=== PATIENT | male | born 1960 | race Caucasian/White ===

== ENCOUNTER 2019-11-08 10:38 | Inpatient (IN) | payer OTHER, SELFPAY ==
--- NOTE | ~2019-11-08 | US_ITS ---
EXAMINATION: US art doppler w press LE BI DATE: 11/08/2019 13:41 INDICATION: Peripheral arterial disease. Right fourth toe ulcer. TECHNIQUE: Segmental pressures and plethysmographic and Doppler waveforms of the brachial and lower e xtremity arteries were obtained. COMPARISON: None. FINDINGS: Right and left brachial artery pressures of 181 mm Hg and 185 mm Hg, respectively, are concordant (no rmal difference <= 30 mmHg). The right thigh pressures and below-knee pressure were not measured. The right ankle-brachial index ( KATIE) is 0.28 (normal >= 0.9-1.0). The right great toe-brachial index (TBI) is was not measured (paola l >= 0.65). Arterial Doppler waveforms are biphasic in common femoral artery, not detectable in super ficial femoral artery, and biphasic in popliteal artery and at the ankle. The left thigh pressures and below-knee pressures were not measured. The left KATIE is 0.32. The left T BI is 0.25. Arterial Doppler waveforms are biphasic from common femoral artery to the ankle. IMPRESSION: 1. Severely decreased ABIs, consistent with arterial occlusive disease. Reviewed, dictated and finalized at location A. ALT PAVING MACHINE OPERATOR
--- NOTE | ~2019-11-08 | XR_ITS ---
EXAMINATION: XR foot RT min 3V DATE: 11/08/2019 11:23 INDICATION: Chronic fourth toe TECHNIQUE: Dorsoplantar, two oblique and lateral views of the right foot were obtained. COMPARISON: 10/09/2019 FINDINGS: Alignment is normal. No fracture. Joint spaces are normal. Moderate sized plantar calcaneal spur. Sof t tissue swelling at the distal aspect of the right fourth toe. No soft tissue gas or radiopaque fore ign bodies. IMPRESSION: 1. No acute osseous abnormality. Reviewed, dictated and finalized at location B. IGHT CUTTER MACHINE
[2019-11-08 10:40] VITALS: BP 195/61; PULSE 80; RESP 19; TEMP 36.8; O2SAT 96
--- NOTE | 2019-11-08 10:50 | ED.LOWEXIN ---
HPI - Extremity Injury (Lower) General Chief Complaint: Extremity Injury, Lower Stated Complaint: RIGHT FOOT PAIN Time Seen by Provider: 11/08/19 10:46 Source: patient and RN notes reviewed Mode of arrival: EMS Limitations: no limitations History of Present Illness HPI Narrative: Pt is a 59 y/o male who presents to the ED, via EMS, with c/o right foot pain which began in August 2019. Pt states he injured his foot in August 2019, and went to get it treated. He has been taking care of it with dressing it and cleaning with antimicrobial soap since then. He reports his PCP prescribed antibiotics, but he denies having any relief of his symptoms. However, pt states he recently peeled off his toenail by accident. He reports he has been cleaning it and dressing it at home. However, pt reports a fever of 100 degrees, right foot swelling, and erythema to his right foot. His 4th and 5th toes on his right foot appear to be black in color. He states his pain is worsened when sitting, but alleviated when he is standing. MD complaint: foot injury (located at his right toes) Onset (ago): month(s) (began in August 2019) Type of Injury: unknown Relieving factors: nothing (antibiotics have not alleviated symptoms) and other (standing) Exacerbating factors: other (sitting) Other symptoms: other (right foot edema; erythema to the right foot; fever of 100 degrees; 4th and 5th toes black in appearance) Related Data Home Medications Medication Instructions Recorded Confirmed acetaminophen-codeine 1 tablet PO BID MDD 2 tablets 11/08/19 11/08/19 [Tylenol-Codeine #4] ascorbic acid (vitamin C) 1,000 mg PO DAILY 11/08/19 11/08/19 aspirin 162.5 mg PO DAILY 11/08/19 11/08/19 cyanocobalamin (vitamin B-12) 2,500 mcg PO DAILY 11/08/19 11/08/19 furosemide [Lasix] 40 mg PO QAM PRN 11/08/19 11/08/19 glimepiride [Amaryl] 4 mg PO BID PRN 11/08/19 11/08/19 insulin glargine [Basaglar KwikPen 60 unit SUB-Q QPM 11/08/19 11/08/19 U-100 Insulin] ipratropium-albuterol 3 ml INHALATION QID PRN 11/08/19 11/08/19 lisinopril [Zestril] 10 mg PO DAILY 11/08/19 11/08/19 magnesium oxide 400 mg PO BID PRN 11/08/19 11/08/19 metformin [Glucophage] 1,000 mg PO BID 11/08/19 11/08/19 pravastatin [Pravachol] 80 mg PO HS 11/08/19 11/08/19 Allergies Allergy/AdvReac Type Severity Reaction Status Date / Time amoxicillin Allergy Unknown Unknown Verified 11/08/19 10:46 cefuroxime Allergy Unknown Diarrhea Verified 11/08/19 10:46 cephalexin Allergy Unknown Unknown Verified 11/08/19 10:46 hydrocodone Allergy Unknown Vomiting Verified 11/08/19 10:46 latex Allergy Unknown Rash Verified 11/08/19 10:46 Penicillins Allergy Unknown Anaphylactic Verified 11/08/19 10:46 Shock sulfamethizole Allergy Unknown Unknown Verified 11/08/19 10:46 sulfamethoxazole Allergy Unknown Unknown Verified 11/08/19 10:46 trimethoprim Allergy Unknown Unknown Verified 11/08/19 10:46 Review of Systems Review of Systems: All systems reviewed & are unremarkable except as noted in HPI and below Constitutional: Constitutional: Reports fever(s) (of 100 degrees) Cardiovascular: Cardiovascular: Reports pedal edema (right foot) Musculoskeletal: Musculoskeletal: Reports other (right foot pain) Integumentary/Breasts: Skin/Breast: Reports erythema (to right foot) and Reports other (4th and 5th right toes appear black in color) PMFSH Past Medical History Medical History (Updated 11/08/19 @ 16:46 by Imer Wise DO) Arthritis CAD (coronary artery disease) of artery bypass graft Diabetes DVT (deep venous thrombosis) GERD (gastroesophageal reflux disease) Hypertension Myocardial infarction Peripheral vascular disease Ulcer Surgical History Surgical History (Updated 11/08/19 @ 10:59 by Lily Baker) H/O cardiac catheterization Family History Family History (Updated 10/10/18 @ 16:36 by DOCTOR UNKNOWN) Other Cerebrovascular accident Family history of arthritis Family history of cardiovascular disea
[2019-11-08 11:23] LABS: Basophils Absolute Auto 0.1 K/mm3 (0.0-0.1); Basophils Percent Auto 0.6 % (0.2-1.2); Eosinophils Absolute Auto 0.2 K/mm3 (0-0.3); Eosinophils Percent Auto 1.4 % (0-4.4); Hematocrit 42.1 % (42.0-52.0); Hemoglobin 13.4 g/dL (14.0-18.0); Immature Granulocyte Absolute 0.05 K/mm3 (0.00-0.031); Immature Granulocyte Percent A 0.4 % (0-0.5); Lymphocytes Absolute Auto 2.91 K/mm3 (0.9-3.2); Lymphocytes Percent Auto 20.8 % (18.3-44.2); Mean Corpuscular HGB Conc 31.8 g/dl (32-36); Mean Corpuscular Hemoglobin 31.9 pg (26-34); Mean Corpuscular Volume 100.2 fl (80-100); Mean Platelet Volume 10.6 fl (7.4-10.4); Monocytes Percent Auto 6.8 % (2.6-8.5); Neutrophils Absolute Auto 9.8 K/mm3 (1.3-6.7); Platelet Count Result 240 k/mm3 (150-375); Red Cell Distribution Width 14.2 % (11.5-14.5)
[2019-11-08 11:34] LABS: Partial Thromboplastin Time 28.2 SECONDS (22.3-36.8)
[2019-11-08 11:35] LABS: Alanine Aminotransferase 20 U/L (4-50); Albumin Level 4.5 g/dL (3.5-5.1); Alkaline Phosphatase 77 U/L (38-126); Aspartate Amino Transferase 21 U/L (17-59); Bilirubin,Total 0.7 mg/dL (0.2-1.3); Blood Urea Nitrogen 25 mg/dL (9-20); Calcium 9.8 mg/dL (8.4-10.2); Carbon Dioxide 25 mmol/L (22-30); Chloride 103 mmol/L (98-107); Estimated CRCL calculation 60 ml/min; Estimated Glomerular Filt Rate 48; Glucose 165 mg/dL (75-110); Potassium 4.1 mmol/L (3.4-5.0); Sodium 138 mmol/L (137-145)
--- NOTE | 2019-11-08 12:45 | PM.IMHP ---
H&P: HPI History of Present Illness Chief complaint: Right foot pain. Narrative: Noel Rodriguez is a 59 year old male with insulin-dependent diabetes, peripheral arterial disease, chronic kidney disease, coronary artery disease, and hypertension who presented to the emergency department earlier this morning via EMS from home for evaluation of right foot pain. He apparently injured his foot in August 2019, and has had wounds on his fourth and fifth toes since that time. He has reportedly been caring for them at home, using anti-microbial soap, however he developed erythema and edema about the toes extending to the dorsum of the foot for which he was seen by his primary care provider several weeks ago. He was prescribed antibiotics, however only took a few of them as he was concerned about the side effect profile. He continues to have erythema and edema and has noticed that his toes are now a deep purple color. He has been having pain in the right foot, that he has a difficult time describing but says that it is an intense deep pain. It seems to be worse when sitting, and somewhat relieved when standing. It is difficult to say whether or not he has had claudication. He also notes a low-grade fever. Of note, he had his right lower extremity revascularized per Dr. Hurt several years ago, and he admits that he does not always take his aspirin. Apparently he was told not to take his aspirin when he takes Celebrex, which seems to be at least 4-5 times a week. He has no history of gangrene or multidrug-resistant organisms. It does not sound as though he has had claudication. He denies paresthesias, numbness, and tingling at the site. Review of Systems Review of Systems: Narrative: 12 systems were reviewed with pertinent positives and negatives as per HPI. His appetite has been okay but a bit diminished due to reported sores in his mouth for which she is using Magic mouthwash. I did not appreciate any such lesions on exam, however. No cold or flu symptoms. He denies chest pain and shortness of breath. Periodically he has nausea but no vomiting. He states his diabetes is well controlled, but he is unable to tell me what his glucoses have been running at home and he does not know his most recent hemoglobin A1c. Except as documented, all other systems were reviewed and are negative. [facility] Past Medical History Medical History (Updated 11/08/19 @ 19:13 by Karen Payne PA-C) ADHD (attention deficit hyperactivity disorder) Chronic kidney disease, stage 3 Baseline creatinine between 1.5 and 1.60. Chronic pain syndrome On long-term opiates. Coronary artery disease With history of stents. Degenerative disc disease GERD (gastroesophageal reflux disease) History of DVT of lower extremity Hyperlipidemia Hypertension Insulin dependent type 2 diabetes mellitus Myocardial infarction Osteoarthritis Peripheral arterial disease Status post right lower extremity revascularization per Dr. Hurt. Surgical History Surgical History (Updated 11/08/19 @ 19:05 by Karen Payne PA-C) H/O cardiac catheterization History of left-sided carotid endarterectomy History of revascularization procedure of lower extremity Right lower extremity angioplasty and stent per Dr. Hurt. Family History Family History Other Cerebrovascular accident Family history of arthritis Family history of cardiovascular disease Family history of chronic obstructive pulmonary disease Family history of mental disorder Hypertension Social History Social History (Updated 11/08/19 @ 19:06 by Karen Payne PA-C) Social History: The patient lives in his own home in [place] with his cat. He designates his cousin Jaskaran Carr as his surrogate decision-maker and he wishes to be a full code. He is not employed and is on disability. He smokes between 5 and 20 cigarettes and 20 cigarettes/day. No drug use. He wan
[2019-11-08] MEDS: MORPHINE SULFATE 2 MG/ML INJ IV PUSH (13:41)
[2019-11-08 13:45] VITALS: BP 159/62; PULSE 73; RESP 20; O2SAT 97
[2019-11-08 14:10] VITALS: BP 182/56; PULSE 64; RESP 16; TEMP 37.1; O2SAT 98
--- NOTE | 2019-11-08 17:28 | ADMGEN ---
This patient, Noel Rodriguez, was admitted to 3 [facility] S[facility] Room 313-01. Patient/family oriented to hospital policies and general routines including ID bracelet, bed and alarms, visiting hours, pain management, procedures, bathroom and other care routines, personal items, smoking policy, room service/diet, and visiting hours. Valuables list has been completed. Information on how to activate the Rapid Response Team has been discussed. Patient/Family are encouraged to report perceived risks to care and to ask questions if they do not understand what they are told or what they should do.
[2019-11-08] MEDS: MAGNESIUM OXIDE 400 MG TABLET PO (20:23)
[2019-11-08] MEDS: PRAVASTATIN SODIUM 20 MG TABLET 80 MG PO (20:23)
[2019-11-08] MEDS: ENOXAPARIN 120 MG/0.8 ML SYRINGE 105 MG SUB-Q (20:23)
[2019-11-08] MEDS: MAGNES & ALUM HYD/SIMETH/DIPHENHYD/LIDOCAINE 119 ML MOUTHWASH 15 ML BY MOUTH (20:28)
[2019-11-08] MEDS: INSULIN GLARGINE (*BKC) 100 UNITS/ML 60 UNITS SUB-Q (20:30)
[2019-11-08 21:16] LABS: Glucose Point of Care 197 (65-105)
[2019-11-08 22:00] VITALS: BP 150/50; PULSE 75; RESP 16; TEMP 36.9; O2SAT 96
[2019-11-09] VITALS (9 sets, daily range): BP systolic 149–187; BP diastolic 52–63; PULSE 56–81; RESP 18–20; TEMP 37.1; O2SAT 97–100
[2019-11-09 00:13] LABS: Glucose Point of Care 213 (65-105)
[2019-11-09] MEDS: ALBUTEROL SULFATE NEB 2.5 MG/0.5 ML INH INHALATION ×2 (02:06→21:35)
[2019-11-09 05:23] LABS: Glucose Point of Care 199 (65-105)
[2019-11-09 06:42] LABS: Blood Urea Nitrogen 21 mg/dL (9-20); Carbon Dioxide 25 mmol/L (22-30); Chloride 100 mmol/L (98-107); Estimated CRCL calculation 63 ml/min; Estimated Glomerular Filt Rate 52; Glucose 184 mg/dL (75-110); Potassium 3.7 mmol/L (3.4-5.0); Sodium 133 mmol/L (137-145)
[2019-11-09 06:43] LABS: Basophils Absolute Auto 0.1 K/mm3 (0.0-0.1); Basophils Percent Auto 0.5 % (0.2-1.2); Eosinophils Absolute Auto 0.1 K/mm3 (0-0.3); Eosinophils Percent Auto 0.7 % (0-4.4); Hematocrit 36.1 % (42.0-52.0); Hemoglobin 11.9 g/dL (14.0-18.0); Immature Granulocyte Absolute 0.04 K/mm3 (0.00-0.031); Immature Granulocyte Percent A 0.4 % (0-0.5); Lymphocytes Absolute Auto 2.53 K/mm3 (0.9-3.2); Lymphocytes Percent Auto 22.6 % (18.3-44.2); Mean Corpuscular Hemoglobin 32.1 pg (26-34); Mean Corpuscular Volume 97.3 fl (80-100); Mean Platelet Volume 10.6 fl (7.4-10.4); Monocytes Absolute Auto 0.8 K/mm3 (0.1-0.6); Monocytes Percent Auto 7.2 % (2.6-8.5); Neutrophils Absolute Auto 7.7 K/mm3 (1.3-6.7); Neutrophils Percent Auto 68.6 % (45.5-73.1); Platelet Count Result 195 k/mm3 (150-375); Red Blood Count 3.71 M/mm3 (4.6-6.20); Red Cell Distribution Width 13.7 % (11.5-14.5); White Blood Count 11.2 K/mm3 (4.5-10.0)
[2019-11-09 08:55] LABS: Glucose Point of Care 131 (65-105)
[2019-11-09] MEDS: ASCORBIC ACID 500 MG TABLET 1000 MG PO (09:08)
[2019-11-09] MEDS: ASPIRIN 81 MG CHEWABLE TABLET 162 MG PO (09:09)
[2019-11-09] MEDS: CYANOCOBALAMIN 500 MCG TABLET 2500 MCG PO (09:09)
[2019-11-09] MEDS: lisinopriL 10 MG TABLET PO (09:10)
[2019-11-09] MEDS: ENOXAPARIN 120 MG/0.8 ML SYRINGE 105 MG SUB-Q ×2 (09:11→21:55)
[2019-11-09] MEDS: MAGNES & ALUM HYD/SIMETH/DIPHENHYD/LIDOCAINE 119 ML MOUTHWASH 15 ML BY MOUTH ×4 (09:15→21:59)
[2019-11-09] MEDS: METOPROLOL SUCCINATE EXT REL 25 MG TABCR PO (10:49)
--- NOTE | 2019-11-09 11:25 | PM.CNCAR ---
Assessment and Plan Assessment and plan (1) Peripheral arterial disease: Code(s): I73.9 - Peripheral vascular disease, unspecified Status: Acute Assessment and Plan: His KATIE showed severe distal disease, previously had stent placement to the right SFA. Currently with acute lump straightening ischemia, he needs to be on anticoagulation, continue with antibiotics, will need peripheral angiogram with possible need for intervention most likely disease in the SFA again (2) Hypertension: Code(s): I10 - Essential (primary) hypertension Status: Acute (3) Ischemic toe ulcer: Code(s): L97.509 - Non-pressure chronic ulcer of other part of unspecified foot with unspecified severity Status: Acute Assessment and Plan: Possibly ischemic ulcer, in view of severe peripheral vascular disease, and gangrenous changes. (4) Cellulitis of foot, right: Code(s): L03.115 - Cellulitis of right lower limb Status: Acute Assessment and Plan: Currently on IV antibiotics, will continue with that on planned angiogram possibly on Monday (5) Critical limb ischemia with history of revascularization of same extremity: Code(s): I99.8 - Other disorder of circulatory system; Z95.9 - Presence of cardiac and vascular implant and graft, unspecified Status: Acute Assessment and Plan: He seems to have acute limb threatening ischemia, possibly due to severe disease most likely SFA on the right side. Will proceed with angiogram, on Monday, for the time being continue with Lovenox and IV antibiotics. With a gangrenous changes on the this 4th toe he may still would need amputation but possibly only the 4th toe Additional Plan Thank you for allowing me to participate in this patient's care, I will be following up with you. Please do not hesitate to call me for any other inquiry History of Present Illness History of Present Illness Consult date/time: 11/09/19 11:25 Cardiovascular consultation Chief complain: Right foot pain and redness. 59 years old gentleman with history of diabetes mellitus, hypertension, dyslipidemia, and smoking, was admitted to the hospital because of redness and pain the right foot. His symptoms started about 2 3 months ago with the injury to the right foot as he was walking, at that time at became red and painful try to to seek medical attention for that but that to [facility] drew and subsequently started on p.o. antibiotics by his primary care doctor. Came distal this time because of worsening pain and increased redness and swelling. Apparently he had angioplasty with multiple stent placement at to the right SFA by Dr. Imer Hurt at [facility] that was back in 2013. Had not had any follow-up with him and not had any recent vascular evaluation. His KATIE showed severe distal disease. At currently he has a gangrenous changes with dry gangrene to the 4th toe of the right foot and then slide redness that involve most of the foot. He has no anterior tibial pulse, has very weak posterior tibial pulse. We started him on Lovenox, and currently he is on IV antibiotics Reason For Visit: Right foot pain. Review of Systems Constitutional: Constitutional: Reports as per HPI, Denies chills, Reports fatigue and Reports weakness Cardiovascular: Cardiovascular: Denies chest pain, Denies diaphoresis, Reports leg edema and Denies palpitations Respiratory: Respiratory: Reports dyspnea on exertion PMFSH Past Medical History Medical History ADHD (attention deficit hyperactivity disorder) Chronic kidney disease, stage 3 Baseline creatinine between 1.5 and 1.60. Chronic pain syndrome On long-term opiates. Coronary artery disease With history of stents. Degenerative disc disease GERD (gastroesophageal reflux disease) History of DVT of lower extremity Hyperlipidemia Hypertension Insulin dependent type 2 diabetes mellitus M
[2019-11-09 12:22] LABS: Glucose Point of Care 204 (65-105)
[2019-11-09 12:35] LABS: Cholesterol 112 mg/dL (0-200); HDL Direct 19 mg/dL; Triglycerides 133 mg/dL (<150)
[2019-11-09 12:46] LABS: LDL Cholesterol Direct 69 mg/dL
[2019-11-09] MEDS: INSULIN ASPART (*BKC) 100 UNITS/ML SUB-Q (13:15)
[2019-11-09] MEDS: SODIUM CHLORIDE 0.9% IV 500 ML 100 ML IV CONT ×2 (13:16→19:47)
[2019-11-09] MEDS: CLOPIDOGREL BISULFATE 75 MG TABLET PO (13:19)
--- NOTE | 2019-11-09 15:50 | PC.NURSE ---
Called Dr. Altman to verify allergy with hydrocodone, order to continue to give. Patient not having any allergy symptoms.
[2019-11-09 16:24] LABS: Glucose Point of Care 131 (65-105)
--- NOTE | 2019-11-09 16:36 | P.PNIM_ITS ---
Progress Note: A&P Assessment and Plan (1) Cellulitis of foot, right: Code(s): L03.115 - Cellulitis of right lower limb Status: Acute Assessment and Plan: 11/09/19 16:36 Patient is 59 male with uncontrolled DM and severe PVD now presents with right foot with cellulitis and 4th and 5th toes distal phalanx are necrotic and gangrenous, patient is being levaquin and vancomycin patient was seen by forensic social worker and recommending vascular angiogram and stents which is scheduled for Monday, patient complains of pain in right foot and toe denies any fever or chills denies any polyuria polydipsia (2) Ischemic toe ulcer: Code(s): L97.509 - Non-pressure chronic ulcer of other part of unspecified foot with unspecified severity Status: Acute Assessment and Plan: patient is seen by Dr. Adaem and wound care, (3) Insulin dependent type 2 diabetes mellitus: Code(s): E11.9 - Type 2 diabetes mellitus without complications; Z79.4 - retirement (current) use of insulin Status: Acute Assessment and Plan: * Hemoglobin A1c today is 8.0. * Continue insulin. Hold metformin as he may need contrast imaging. * Initiate signs constant, Accu-Cheks, and hypoglycemic protocol. (4) Hypertension: Code(s): I10 - Essential (primary) hypertension Status: Acute Assessment and Plan: * Blood pressures were reviewed and are not at goal, with systolics ranging between the 150s to low 180s. * Will continue antihypertensives and monitor blood pressures daily. He may need adjustment in dosing. Time Spent With Patient Time with patient: 15 - 25 minutes Subjective Date/time seen: 11/09/19 16:36 Patient is 59 male with uncontrolled DM and severe PVD now presents with right foot with cellulitis and 4th and 5th toes distal phalanx are necrotic and gangrenous, patient is being levaquin and vancomycin patient was seen by forensic social worker and recommending vascular angiogram and stents which is scheduled for Monday, patient complains of pain in right foot and toe denies any fever or chills denies any polyuria polydipsia Review of Systems Review of Systems: All systems reviewed & are unremarkable except as noted in HPI and below Constitutional: Constitutional: Reports as per HPI Eyes: Eyes: Reports as per HPI ENT: Reports as per HPI Cardiovascular: Cardiovascular: Reports as per HPI Respiratory: Respiratory: Reports as per HPI Gastrointestinal: Gastrointestinal: Reports as per HPI Genitourinary: Genitourinary: Reports as per HPI Musculoskeletal: Musculoskeletal: Reports as per HPI Integumentary/Breasts: Skin/Breast: Reports as per HPI Neurologic: Reports as per HPI Psychiatric: Psychiatric: Reports as per HPI Exam Const: General: comfortable and no acute distress HENMT: General nose exam: nares normal Mouth: Yes moist mucous membranes Eyes: General: appearance normal, both eyes and all related structures Sclera: sclerae normal Neck: Neck: supple Resp: Auscultation: clear t
--- NOTE | 2019-11-09 16:36 | PM.IMPN ---
Progress Note: A&P Assessment and Plan (1) Cellulitis of foot, right: Code(s): L03.115 - Cellulitis of right lower limb Status: Acute Assessment and Plan: 11/09/19 16:36 Patient is 59 male with uncontrolled DM and severe PVD now presents with right foot with cellulitis and 4th and 5th toes distal phalanx are necrotic and gangrenous, patient is being levaquin and vancomycin patient was seen by pick pack worker and recommending vascular angiogram and stents which is scheduled for Monday, patient complains of pain in right foot and toe denies any fever or chills denies any polyuria polydipsia (2) Ischemic toe ulcer: Code(s): L97.509 - Non-pressure chronic ulcer of other part of unspecified foot with unspecified severity Status: Acute Assessment and Plan: patient is seen by Dr. Adame and wound care, (3) Insulin dependent type 2 diabetes mellitus: Code(s): E11.9 - Type 2 diabetes mellitus without complications; Z79.4 - intermediate project manager (current) use of insulin Status: Acute Assessment and Plan: Hemoglobin A1c today is 8.0. Continue insulin. Hold metformin as he may need contrast imaging. Initiate signs constant, Accu-Cheks, and hypoglycemic protocol. (4) Hypertension: Code(s): I10 - Essential (primary) hypertension Status: Acute Assessment and Plan: Blood pressures were reviewed and are not at goal, with systolics ranging between the 150s to low 180s. Will continue antihypertensives and monitor blood pressures daily. He may need adjustment in dosing. Time Spent With Patient Time with patient: 15 - 25 minutes Subjective Date/time seen: 11/09/19 16:36 Patient is 59 male with uncontrolled DM and severe PVD now presents with right foot with cellulitis and 4th and 5th toes distal phalanx are necrotic and gangrenous, patient is being levaquin and vancomycin patient was seen by pick pack worker and recommending vascular angiogram and stents which is scheduled for Monday, patient complains of pain in right foot and toe denies any fever or chills denies any polyuria polydipsia Review of Systems Review of Systems: All systems reviewed & are unremarkable except as noted in HPI and below Constitutional: Constitutional: Reports as per HPI Eyes: Eyes: Reports as per HPI ENT: Reports as per HPI Cardiovascular: Cardiovascular: Reports as per HPI Respiratory: Respiratory: Reports as per HPI Gastrointestinal: Gastrointestinal: Reports as per HPI Genitourinary: Genitourinary: Reports as per HPI Musculoskeletal: Musculoskeletal: Reports as per HPI Integumentary/Breasts: Skin/Breast: Reports as per HPI Neurologic: Reports as per HPI Psychiatric: Psychiatric: Reports as per HPI Exam Const: General: comfortable and no acute distress HENMT: General nose exam: nares normal Mouth: Yes moist mucous membranes Eyes: General: appearance normal, both eyes and all related structures Sclera: sclerae normal Neck: Neck: supple Resp: Auscultation: clear to auscultation bilaterally and crackles Cardio: Rate: regular rate Rhythm: regular rhythm GI: Auscultation: normal bowel sounds Skin: General skin exam: normal color Neuro: Speech: normal speech Sensory Exam: normal sensation Extrem: Other: Right foot dorsal aspect erythematous, along lateral aspect, 4th and 5th toes distal phalax nicrotic and gangrenous Objective Data Vital Signs Vital Signs: Vital Signs - 24 hr 11/08/19 22:00 11/09/19 02:10 11/09/19 02:20 Temperature 98.4 F Pulse Rate 75 6
[2019-11-09] MEDS: LIDOCAINE 5% PATCH 2 PATCH TRANSDERM (19:33)
[2019-11-09] MEDS: IPRATROPIUM BR 0.02% INH SOLN 0.5 MG/2.5 ML VIAL INHALATION (21:36)
[2019-11-09] MEDS: PRAVASTATIN SODIUM 20 MG TABLET 80 MG PO (21:59)
[2019-11-09] MEDS: INSULIN GLARGINE (*BKC) 100 UNITS/ML 60 UNITS SUB-Q (22:01)
[2019-11-09 22:08] LABS: Glucose Point of Care 155 (65-105)
[2019-11-10 01:03] LABS: Glucose Point of Care 214 (65-105)
[2019-11-10] MEDS: SODIUM CHLORIDE 0.9% IV 500 ML 100 ML IV CONT ×2 (01:03→13:12)
[2019-11-10 01:52] LABS: Vancomycin Trough 19.3 ug/mL (10.0-20.0)
[2019-11-10 05:10] LABS: Glucose Point of Care 99 (65-105)
[2019-11-10 06:00] VITALS: BP 156/54; PULSE 69; RESP 18; TEMP 36.6; O2SAT 98
[2019-11-10 06:49] LABS: Hematocrit 36.9 % (42.0-52.0); Hemoglobin 11.8 g/dL (14.0-18.0); Mean Corpuscular Hemoglobin 31.9 pg (26-34); Mean Corpuscular Volume 99.7 fl (80-100); Mean Platelet Volume 10.7 fl (7.4-10.4); Platelet Count Result 187 k/mm3 (150-375); Red Cell Distribution Width 13.8 % (11.5-14.5)
[2019-11-10 07:09] LABS: Blood Urea Nitrogen 18 mg/dL (9-20); Carbon Dioxide 22 mmol/L (22-30); Chloride 104 mmol/L (98-107); Estimated CRCL calculation 73 ml/min; Estimated Glomerular Filt Rate > 60; Glucose 110 mg/dL (75-110); Potassium 3.7 mmol/L (3.4-5.0); Sodium 136 mmol/L (137-145)
[2019-11-10 08:06] VITALS: BP 155/46; PULSE 57; RESP 18; TEMP 36.6; O2SAT 98
[2019-11-10] MEDS: ASCORBIC ACID 500 MG TABLET 1000 MG PO (08:12)
[2019-11-10] MEDS: CYANOCOBALAMIN 500 MCG TABLET 2500 MCG PO (08:13)
[2019-11-10] MEDS: ASPIRIN 81 MG CHEWABLE TABLET 162 MG PO (08:13)
[2019-11-10] MEDS: CLOPIDOGREL BISULFATE 75 MG TABLET PO (08:13)
[2019-11-10] MEDS: lisinopriL 10 MG TABLET PO (08:15)
[2019-11-10] MEDS: MAGNES & ALUM HYD/SIMETH/DIPHENHYD/LIDOCAINE 119 ML MOUTHWASH 15 ML BY MOUTH ×4 (08:15→23:58)
--- NOTE | 2019-11-10 11:06 | PM.PNCARD ---
Progress Note: A&P Assessment and Plan (1) Peripheral arterial disease: Code(s): I73.9 - Peripheral vascular disease, unspecified Status: Acute Assessment and Plan: His KATIE showed severe distal disease, previously had stent placement to the right SFA. Currently with acute lump straightening ischemia, he needs to be on anticoagulation, continue with antibiotics, will need peripheral angiogram with possible need for intervention most likely disease in the SFA again. Planning angiogram and possible intervention tomorrow (2) Hypertension: Code(s): I10 - Essential (primary) hypertension Status: Acute (3) Ischemic toe ulcer: Code(s): L97.509 - Non-pressure chronic ulcer of other part of unspecified foot with unspecified severity Status: Acute Assessment and Plan: Possibly ischemic ulcer, in view of severe peripheral vascular disease, and gangrenous changes. (4) Cellulitis of foot, right: Code(s): L03.115 - Cellulitis of right lower limb Status: Acute Assessment and Plan: Currently on IV antibiotics, will continue with that on planned angiogram possibly on Monday (5) Critical limb ischemia with history of revascularization of same extremity: Code(s): I99.8 - Other disorder of circulatory system; Z95.9 - Presence of cardiac and vascular implant and graft, unspecified Status: Acute Assessment and Plan: He seems to have acute limb threatening ischemia, possibly due to severe disease most likely SFA on the right side. Will proceed with angiogram, on Monday, for the time being continue with Lovenox and IV antibiotics. With a gangrenous changes on the this 4th toe he may still would need amputation but possibly only the 4th toe Additional Plan I spent some time with him talking about the procedure tomorrow, and explaining the expectations, I answered all his questions Subjective Date/time seen: 11/10/19 11:06 He feels better today, still with minimal pain, no chest pain no shortness of breath Exam Narrative: Exam Narrative: Awake alert oriented x3 not in acute distress Neck is supple no obvious JVD, no carotid bruit Chest: Good air entry bilaterally, lungs are clear to auscultation and percussion bilaterally Cardiovascular: Regular rate and rhythm, 2/6 systolic murmur noted left sternal border Abdomen: Soft nontender bowel sounds positive Extremities: Discoloration noted of the right foot with gangrenous changes noted in the 4th toe, and significant redness of most of right foot, decreased pulses noted bilaterally Objective Data Vital Signs Vital Signs: Vital Signs - 24 hr 11/09/19 14:00 11/09/19 21:38 11/09/19 21:48 Temperature 37.1 C Pulse Rate 72 56 L 61 Respiratory Rate 18 18 Blood Pressure 149/52 H Pulse Oximetry 99 11/09/19 22:00 11/10/19 06:00 11/10/19 08:06 Temperature 37.1 C 36.6 C 36.6 C Pulse Rate 56 L 69 57 L Respiratory Rate 18 18 18 Blood Pressure 155/52 H 156/54 H 155/46 H Pulse Oximetry 100 98 98 Intake/Output Intake/Output: Intake & Output 11/07/19 11/08/19 11/09/19 11/10/19 23:59 23:59 23:59 23:59 Intake Total 670 3415 2257 Output Total 250 1000 950 Balance 420 2415 1307 Meds/Results Medications: Active Medications Generic Name Dose Route Start Last Admin Trade Name Freq PRN Reason Stop Dose Admin Acetaminophen/Codeine Phosphate 1 tab 11/09/19 15:50 11/10/19 05:27 Tylenol #3 PO 1 tab Q6HR RHONDA Administration Albuterol 2.5 mg 11/08/19 19:59 11/09/19 21:35 Albuterol Sulf Neb 2.5mg/0.5ml INHALATION 2.5 mg QIDRT PRN Administration Shortness Of Breath Ascorbic Acid 1,000 mg 11/09/19 09:00 11/10/19 08:12 Vitamin C PO 1,000 mg DAILY RHONDA Administration Aspirin 162 mg 11/09/19 09:00 11/10/19 08:13 Aspirin Chewable PO 162 mg DAILY RHONDA Administration Clopidogrel Bisulfate 75 mg 11/09/19 09:00 11/10/19 08:13 Plavix PO 75 mg QAM [facility] Ad
[2019-11-10 12:59] LABS: Glucose Point of Care 119 (65-105)
[2019-11-10 13:21] VITALS: PULSE 67
[2019-11-10] MEDS: METOPROLOL SUCCINATE EXT REL 25 MG TABCR PO (13:21)
[2019-11-10] MEDS: ENOXAPARIN 120 MG/0.8 ML SYRINGE 105 MG SUB-Q ×2 (13:22→22:31)
[2019-11-10 14:00] VITALS: BP 173/45; PULSE 68; RESP 18; TEMP 36.7; O2SAT 99
--- NOTE | 2019-11-10 14:56 | P.PNIM_ITS ---
Progress Note: A&P Assessment and Plan (1) Cellulitis of foot, right: Code(s): L03.115 - Cellulitis of right lower limb Status: Acute Assessment and Plan: 11/10/19 14:56 Patient is 59 male with uncontrolled DM and severe PVD now presents with right foot with cellulitis and 4th and 5th toes distal phalanx are necrotic and gangrenous, patient is being treated with levaquin and vancomycin patient was seen by home inspector and recommending vascular angiogram and possibly stents which is scheduled for Monday, patient complains of pain in right foot and toe, his vicodin was increased but still not controlled, will add flexeril, denies any fever or chills denies any polyuria polydipsia (2) Ischemic toe ulcer: Code(s): L97.509 - Non-pressure chronic ulcer of other part of unspecified foot with unspecified severity Status: Acute Assessment and Plan: patient is seen by Dr. Adame and wound care, (3) Insulin dependent type 2 diabetes mellitus: Code(s): E11.9 - Type 2 diabetes mellitus without complications; Z79.4 - scraper burrer (current) use of insulin Status: Acute Assessment and Plan: * Hemoglobin A1c today is 8.0. * Continue insulin. Hold metformin as he may need contrast imaging. * Initiate signs constant, Accu-Cheks, and hypoglycemic protocol. (4) Hypertension: Code(s): I10 - Essential (primary) hypertension Status: Acute Assessment and Plan: * Blood pressures were reviewed and are not at goal, with systolics ranging between the 150s to low 180s. * Will continue antihypertensives and monitor blood pressures daily. He may need adjustment in dosing. Subjective Date/time seen: 11/10/19 14:56 Patient is 59 male with uncontrolled DM and severe PVD now presents with right foot with cellulitis and 4th and 5th toes distal phalanx are necrotic and gangrenous, patient is being treated with levaquin and vancomycin patient was seen by home inspector and recommending vascular angiogram and possibly stents which is scheduled for Monday, patient complains of pain in right foot and toe, his vicodin was increased but still not controlled, will add flexeril, denies any fever or chills denies any polyuria polydipsia Review of Systems Review of Systems: All systems reviewed & are unremarkable except as noted in HPI and below Constitutional: Constitutional: Reports as per HPI Eyes: Eyes: Reports as per HPI ENT: Reports as per HPI Cardiovascular: Cardiovascular: Reports as per HPI Respiratory: Respiratory: Reports as per HPI Gastrointestinal: Gastrointestinal: Reports as per HPI Genitourinary: Genitourinary: Reports as per HPI Musculoskeletal: Musculoskeletal: Reports as per HPI Integumentary/Breasts: Skin/Breast: Reports as per HPI Neurologic: Reports as per HPI Psychiatric: Psychiatric: Reports as per HPI Objective Data Vital Signs Vital Signs: Vital Signs - 24 hr 11/09/19 21:38 11/09/19 21:48 11/09/19 22:00 Temperature 98.8 F Pulse Rate 56 L 61 56 L
--- NOTE | 2019-11-10 14:56 | PM.IMPN ---
Progress Note: A&P Assessment and Plan (1) Cellulitis of foot, right: Code(s): L03.115 - Cellulitis of right lower limb Status: Acute Assessment and Plan: 11/10/19 14:56 Patient is 59 male with uncontrolled DM and severe PVD now presents with right foot with cellulitis and 4th and 5th toes distal phalanx are necrotic and gangrenous, patient is being treated with levaquin and vancomycin patient was seen by title i assistant and recommending vascular angiogram and possibly stents which is scheduled for Monday, patient complains of pain in right foot and toe, his vicodin was increased but still not controlled, will add flexeril, denies any fever or chills denies any polyuria polydipsia (2) Ischemic toe ulcer: Code(s): L97.509 - Non-pressure chronic ulcer of other part of unspecified foot with unspecified severity Status: Acute Assessment and Plan: patient is seen by Dr. Adame and wound care, (3) Insulin dependent type 2 diabetes mellitus: Code(s): E11.9 - Type 2 diabetes mellitus without complications; Z79.4 - correction (current) use of insulin Status: Acute Assessment and Plan: Hemoglobin A1c today is 8.0. Continue insulin. Hold metformin as he may need contrast imaging. Initiate signs constant, Accu-Cheks, and hypoglycemic protocol. (4) Hypertension: Code(s): I10 - Essential (primary) hypertension Status: Acute Assessment and Plan: Blood pressures were reviewed and are not at goal, with systolics ranging between the 150s to low 180s. Will continue antihypertensives and monitor blood pressures daily. He may need adjustment in dosing. Subjective Date/time seen: 11/10/19 14:56 Patient is 59 male with uncontrolled DM and severe PVD now presents with right foot with cellulitis and 4th and 5th toes distal phalanx are necrotic and gangrenous, patient is being treated with levaquin and vancomycin patient was seen by title i assistant and recommending vascular angiogram and possibly stents which is scheduled for Monday, patient complains of pain in right foot and toe, his vicodin was increased but still not controlled, will add flexeril, denies any fever or chills denies any polyuria polydipsia Review of Systems Review of Systems: All systems reviewed & are unremarkable except as noted in HPI and below Constitutional: Constitutional: Reports as per HPI Eyes: Eyes: Reports as per HPI ENT: Reports as per HPI Cardiovascular: Cardiovascular: Reports as per HPI Respiratory: Respiratory: Reports as per HPI Gastrointestinal: Gastrointestinal: Reports as per HPI Genitourinary: Genitourinary: Reports as per HPI Musculoskeletal: Musculoskeletal: Reports as per HPI Integumentary/Breasts: Skin/Breast: Reports as per HPI Neurologic: Reports as per HPI Psychiatric: Psychiatric: Reports as per HPI Objective Data Vital Signs Vital Signs: Vital Signs - 24 hr 11/09/19 21:38 11/09/19 21:48 11/09/19 22:00 Temperature 98.8 F Pulse Rate 56 L 61 56 L Respiratory Rate 18 18 18 Blood Pressure 155/52 H Pulse Oximetry 100 11/10/19 06:00 11/10/19 08:06 11/10/19 13:21 Temperature 97.8 F 97.8 F Pulse Rate 69 57 L 67 Respiratory Rate 18 18 Blood Pressure 156/54 H 155/46 H Pulse Oximetry 98 98 11/10/19 14:00 Temperature 98.1 F Pulse Rate 68 Respiratory Rate 18 Blood Pressure 173/45 H Pulse Oximetry 99 Intake/Output Intake/Output: Intake & Output 11/07/19 11/08/19 11/09/19 11/10/19 23:59 23:59 23:59 23:59 Intake Total 670
[2019-11-10 17:03] LABS: Glucose Point of Care 154 (65-105)
[2019-11-10 22:00] VITALS: BP 140/53; PULSE 66; RESP 18; TEMP 36.9; O2SAT 99
[2019-11-10] MEDS: PRAVASTATIN SODIUM 20 MG TABLET 80 MG PO (22:32)
[2019-11-10 22:46] LABS: Glucose Point of Care 165 (65-105)
[2019-11-11] VITALS (42 sets, daily range): BP systolic 117–235; BP diastolic 40–198; PULSE 55–72; RESP 14–22; TEMP 36.7–36.9; O2SAT 97–100
[2019-11-11] MEDS: SODIUM CHLORIDE 0.9% IV 500 ML 100 ML IV CONT ×3 (02:17→19:00)
[2019-11-11 06:25] LABS: Hematocrit 36.7 % (42.0-52.0); Hemoglobin 12.1 g/dL (14.0-18.0); Mean Corpuscular Hemoglobin 32.2 pg (26-34); Mean Corpuscular Volume 97.6 fl (80-100); Mean Platelet Volume 10.5 fl (7.4-10.4); Platelet Count Result 180 k/mm3 (150-375); Red Blood Count 3.76 M/mm3 (4.6-6.20); Red Cell Distribution Width 13.5 % (11.5-14.5)
[2019-11-11 06:30] LABS: Glucose Point of Care 151 (65-105)
[2019-11-11 06:47] LABS: Blood Urea Nitrogen 19 mg/dL (9-20); Calcium 9.2 mg/dL (8.4-10.2); Carbon Dioxide 22 mmol/L (22-30); Chloride 105 mmol/L (98-107); Estimated CRCL calculation 73 ml/min; Estimated Glomerular Filt Rate > 60; Glucose 152 mg/dL (75-110); Sodium 136 mmol/L (137-145)
[2019-11-11] MEDS: CYANOCOBALAMIN 500 MCG TABLET 2500 MCG PO (09:24)
[2019-11-11] MEDS: METOPROLOL SUCCINATE EXT REL 25 MG TABCR PO (09:25)
[2019-11-11] MEDS: ASCORBIC ACID 500 MG TABLET 1000 MG PO (09:26)
[2019-11-11] MEDS: lisinopriL 10 MG TABLET PO (09:27)
[2019-11-11] MEDS: MAGNES & ALUM HYD/SIMETH/DIPHENHYD/LIDOCAINE 119 ML MOUTHWASH 15 ML BY MOUTH (09:28)
[2019-11-11 09:30] LABS: Partial Thromboplastin Time 35.3 SECONDS (22.3-36.8)
[2019-11-11 12:51] LABS: Glucose Point of Care 137 (65-105)
--- NOTE | 2019-11-11 12:51 | P.PNIM_ITS ---
Progress Note: A&P Assessment and Plan (1) Cellulitis of foot, right: Code(s): L03.115 - Cellulitis of right lower limb Status: Acute Assessment and Plan: 11/11/19 12:51 Patient is 59 male with uncontrolled DM and severe PVD now presents with right foot with cellulitis and 4th and 5th toes distal phalanx are necrotic and gangrenous, patient is being treated with levaquin and vancomycin patient was seen by leather dresser and recommending vascular angiogram and possibly stents which is scheduled for today, patient complains of pain in right foot and toe, his vicodin was increased but still not controlled, added flexeril, this has helped with his pain, denies any fever or chills denies any polyuria polydipsia (2) Ischemic toe ulcer: Code(s): L97.509 - Non-pressure chronic ulcer of other part of unspecified foot with unspecified severity Status: Acute Assessment and Plan: patient is seen by Dr. Adame and wound care, plan is above (3) Insulin dependent type 2 diabetes mellitus: Code(s): E11.9 - Type 2 diabetes mellitus without complications; Z79.4 - termite exterminator (current) use of insulin Status: Acute Assessment and Plan: * Hemoglobin A1c today is 8.0. * Continue insulin. Hold metformin as he may need contrast imaging. * Initiate signs constant, Accu-Cheks, and hypoglycemic protocol. (4) Hypertension: Code(s): I10 - Essential (primary) hypertension Status: Acute Assessment and Plan: * Blood pressures were reviewed and are not at goal, with systolics ranging between the 150s to low 180s. * Will continue antihypertensives and monitor blood pressures daily. his BP has improved compare when he arrived, . __ Subjective Date/time seen: 11/11/19 12:51 Patient is 59 male with uncontrolled DM and severe PVD now presents with right foot with cellulitis and 4th and 5th toes distal phalanx are necrotic and gangrenous, patient is being treated with levaquin and vancomycin patient was seen by leather dresser and recommending vascular angiogram and possibly stents which is scheduled for today, patient complains of pain in right foot and toe, his vicodin was increased but still not controlled, added flexeril, this has helped with his pain, denies any fever or chills denies any polyuria polydipsia Review of Systems Review of Systems: All systems reviewed & are unremarkable except as noted in HPI and below Constitutional: Constitutional: Reports as per HPI Eyes: Eyes: Reports as per HPI ENT: Reports as per HPI Cardiovascular: Cardiovascular: Reports as per HPI Respiratory: Respiratory: Reports as per HPI Gastrointestinal: Gastrointestinal: Reports as per HPI Genitourinary: Genitourinary: Reports as per HPI Musculoskeletal: Musculoskeletal: Reports as per HPI Integumentary/Breasts: Skin/Breast: Reports as per HPI Neurologic: Reports as per HPI Psychiatric: Psychiatric: Reports as per HPI Exam Narrative: Exam Narrative: Moderately obese Const: General: comfortable and no acute distress HENMT:
--- NOTE | 2019-11-11 12:51 | PM.IMPN ---
Progress Note: A&P Assessment and Plan (1) Cellulitis of foot, right: Code(s): L03.115 - Cellulitis of right lower limb Status: Acute Assessment and Plan: 11/11/19 12:51 Patient is 59 male with uncontrolled DM and severe PVD now presents with right foot with cellulitis and 4th and 5th toes distal phalanx are necrotic and gangrenous, patient is being treated with levaquin and vancomycin patient was seen by hose suspender cutter and recommending vascular angiogram and possibly stents which is scheduled for today, patient complains of pain in right foot and toe, his vicodin was increased but still not controlled, added flexeril, this has helped with his pain, denies any fever or chills denies any polyuria polydipsia (2) Ischemic toe ulcer: Code(s): L97.509 - Non-pressure chronic ulcer of other part of unspecified foot with unspecified severity Status: Acute Assessment and Plan: patient is seen by Dr. Adame and wound care, plan is above (3) Insulin dependent type 2 diabetes mellitus: Code(s): E11.9 - Type 2 diabetes mellitus without complications; Z79.4 - half-way (current) use of insulin Status: Acute Assessment and Plan: Hemoglobin A1c today is 8.0. Continue insulin. Hold metformin as he may need contrast imaging. Initiate signs constant, Accu-Cheks, and hypoglycemic protocol. (4) Hypertension: Code(s): I10 - Essential (primary) hypertension Status: Acute Assessment and Plan: Blood pressures were reviewed and are not at goal, with systolics ranging between the 150s to low 180s. Will continue antihypertensives and monitor blood pressures daily. his BP has improved compare when he arrived, . Subjective Date/time seen: 11/11/19 12:51 Patient is 59 male with uncontrolled DM and severe PVD now presents with right foot with cellulitis and 4th and 5th toes distal phalanx are necrotic and gangrenous, patient is being treated with levaquin and vancomycin patient was seen by hose suspender cutter and recommending vascular angiogram and possibly stents which is scheduled for today, patient complains of pain in right foot and toe, his vicodin was increased but still not controlled, added flexeril, this has helped with his pain, denies any fever or chills denies any polyuria polydipsia Review of Systems Review of Systems: All systems reviewed & are unremarkable except as noted in HPI and below Constitutional: Constitutional: Reports as per HPI Eyes: Eyes: Reports as per HPI ENT: Reports as per HPI Cardiovascular: Cardiovascular: Reports as per HPI Respiratory: Respiratory: Reports as per HPI Gastrointestinal: Gastrointestinal: Reports as per HPI Genitourinary: Genitourinary: Reports as per HPI Musculoskeletal: Musculoskeletal: Reports as per HPI Integumentary/Breasts: Skin/Breast: Reports as per HPI Neurologic: Reports as per HPI Psychiatric: Psychiatric: Reports as per HPI Exam Narrative: Exam Narrative: Moderately obese Const: General: comfortable and no acute distress HENMT: General nose exam: nares normal Mouth: Yes moist mucous membranes Eyes: General: appearance normal, both eyes and all related structures Sclera: sclerae normal Neck: Neck: supple Resp: Effort & Inspection: normal respiratory effort Auscultation: clear to auscultation bilaterally Cardio: Rate: regular rate Rhythm: regular rhythm GI: Auscultation: normal bowel sounds Skin: Other: erythema along right foot lateral aspect has improved, Extrem: Other: erythema a
[2019-11-11] MEDS: MAGNESIUM OXIDE 400 MG TABLET PO (13:05)
--- NOTE | 2019-11-11 15:02 | PC.NURSE ---
Pt to electroplating laborer per stretcher.
[2019-11-11 17:18] LABS: Activated Clotting Time 208 sec (74-137)
--- NOTE | 2019-11-11 17:45 | PM.PNCARD ---
Progress Note: A&P Assessment and Plan (1) Peripheral arterial disease: Code(s): I73.9 - Peripheral vascular disease, unspecified Status: Acute Assessment and Plan: He underwent angiogram revealing total occlusion of the SFA on the right side right at the origin, with occluded 2 stents. This was treated with wiring followed by balloon angioplasty at multiple spots followed by stent placement to the proximal SFA, with roman catholic of flow. He would need to be monitored in the intensive care unit for aggressive hydration (2) Hypertension: Code(s): I10 - Essential (primary) hypertension Status: Acute (3) Ischemic toe ulcer: Code(s): L97.509 - Non-pressure chronic ulcer of other part of unspecified foot with unspecified severity Status: Acute Assessment and Plan: Possibly ischemic ulcer, in view of severe peripheral vascular disease, and gangrenous changes. (4) Cellulitis of foot, right: Code(s): L03.115 - Cellulitis of right lower limb Status: Acute Assessment and Plan: Currently on IV antibiotics, will continue with that on planned angiogram possibly on Monday (5) Critical limb ischemia with history of revascularization of same extremity: Code(s): I99.8 - Other disorder of circulatory system; Z95.9 - Presence of cardiac and vascular implant and graft, unspecified Status: Acute Assessment and Plan: He seems to have acute limb threatening ischemia, possibly due to severe disease most likely SFA on the right side. Will proceed with angiogram, on Monday, for the time being continue with Lovenox and IV antibiotics. With a gangrenous changes on the this 4th toe he may still would need amputation but possibly only the 4th toe Additional Plan I spent some time with him talking about the procedure tomorrow, and explaining the expectations, I answered all his questions Subjective Date/time seen: 11/11/19 17:45 Feels well today, still with pain of the right foot, he underwent angiogram revealing total occlusion of the SFA right at the origin, with very diminished flow distally. This was treated with balloon angioplasty, followed by stent placement to the proximal SFA, mid and distal SFA. He has good flow at the end, will have to be observed in intensive care unit due to the abnormal findings Exam Narrative: Exam Narrative: Awake alert oriented x3 not in acute distress Neck is supple no obvious JVD, no carotid bruit Chest: Good air entry bilaterally, lungs are clear to auscultation and percussion bilaterally Cardiovascular: Regular rate and rhythm, 2/6 systolic murmur noted left sternal border Abdomen: Soft nontender bowel sounds positive Extremities: Discoloration noted of the right foot with gangrenous changes noted in the 4th toe, and significant redness of most of right foot, decreased pulses noted bilaterally Objective Data Vital Signs Vital Signs: Vital Signs - 24 hr 11/10/19 22:00 11/11/19 06:00 11/11/19 14:00 Temperature 36.9 C 36.9 C 36.7 C Pulse Rate 66 60 61 Respiratory Rate 18 18 16 Blood Pressure 140/53 L 137/82 151/47 H Pulse Oximetry 99 99 97 Intake/Output Intake/Output: Intake & Output 11/08/19 11/09/19 11/10/19 11/11/19 23:59 23:59 23:59 23:59 Intake Total 670 3415 4070 1900 Output Total 250 1000 2425 550 Balance 420 2415 1645 1350 Meds/Results Medications: Active Medications Generic Name Dose Route Start Last Admin Trade Name Freq PRN Reason Stop Dose Admin Acetaminophen/Codeine Phosphate 1 tab 11/09/19 15:50 11/11/19 12:00 Tylenol #3 PO Not Given Q6HR RHONDA Albuterol 2.5 mg 11/08/19 19:59 11/09/19 21:35 Albuterol Sulf Neb 2.5mg/0.5ml INHALATION 2.5 mg QIDRT PRN Administration Shortness Of Breath Ascorbic Acid 1,000 mg 11/09/19 09:00 11/11/19 09:26 Vitamin C PO 1,000 mg DAILY RHONDA Administration Aspirin 162 mg 11/09/19 09:00 11/10/19 08:13 Aspirin Chewable PO 162 mg
--- NOTE | 2019-11-11 17:59 | WPDCARDPROC ---
Cardiac Cath Procedure Note Date of procedure:: 11/11/19 Performing physician:: Jassi Adame MD Peripheral angiogram was done, showed total occlusion of the ostium of the right SFA, this was treated with balloon angioplasty followed by stent placement with good flow
[2019-11-11] MEDS: SODIUM CHLORIDE 0.9% IV 1,000 ML 125 ML IV CONT (18:00)
[2019-11-11] MEDS: MORPHINE SULFATE 2 MG/ML INJ 1 MG IV PUSH ×2 (19:39→22:10)
[2019-11-11 19:44] LABS: Prothrombin Time 13.2 Seconds (11.1-14.7)
--- NOTE | 2019-11-11 20:09 | PC.NURSE ---
Called Dr. Pollock, Do not given Lovenox tonight.
[2019-11-11 20:17] LABS: Partial Thromboplastin Time 140.7 SECONDS (22.3-36.8)
[2019-11-11] MEDS: INSULIN GLARGINE (*BKC) 100 UNITS/ML 60 UNITS SUB-Q (20:42)
[2019-11-11 20:46] LABS: Glucose Point of Care 205 (65-105)
[2019-11-11 21:14] LABS: Partial Thromboplastin Time 38.8 SECONDS (22.3-36.8)
[2019-11-11] MEDS: PRAVASTATIN SODIUM 20 MG TABLET 80 MG PO (22:10)
[2019-11-12] VITALS (45 sets, daily range): BP systolic 82–153; BP diastolic 44–98; PULSE 52–99; RESP 12–31; TEMP 36.8–37.1; O2SAT 96–100
[2019-11-12] MEDS: MORPHINE SULFATE 2 MG/ML INJ 1 MG IV PUSH ×3 (02:18→04:27)
[2019-11-12 04:45] LABS: Hematocrit 36.9 % (42.0-52.0); Mean Corpuscular HGB Conc 32.5 g/dl (32-36); Mean Corpuscular Hemoglobin 31.8 pg (26-34); Mean Corpuscular Volume 97.9 fl (80-100); Mean Platelet Volume 10.7 fl (7.4-10.4); Platelet Count Result 182 k/mm3 (150-375); Red Blood Count 3.77 M/mm3 (4.6-6.20); Red Cell Distribution Width 13.2 % (11.5-14.5); White Blood Count 10.7 K/mm3 (4.5-10.0)
[2019-11-12 05:06] LABS: Blood Urea Nitrogen 15 mg/dL (9-20); Calcium 9.1 mg/dL (8.4-10.2); Carbon Dioxide 25 mmol/L (22-30); Chloride 102 mmol/L (98-107); Estimated CRCL calculation 79 ml/min; Estimated Glomerular Filt Rate > 60; Glucose 179 mg/dL (75-110); Sodium 136 mmol/L (137-145)
--- NOTE | 2019-11-12 06:20 | OP_ITS ---
DATE OF PROCEDURE: 11/11/2019 PROCEDURE: 1. Access to the left common femoral artery. 2. Insertion of sheath into the left common femoral artery. 3. Abdominal aorta angiogram with distal runoff. 4. Selective right common femoral artery angiogram with distal runoff using contralateral access. 5. Placement of catheter into the right common femoral artery using a guidewire for exchange with the sheath crossing over to the other side. 6. Treatment for chronic total occlusion of the ostial right SFA. 7. Balloon angioplasty of the proximal mid distal SFA using a 5.0 x 100 balloon multiple inflations. 8. Stent placement with Supera stent to the proximal SFA using 5 x 100 mm Supera stent. 9. Intravascular ultrasound to the common femoral on the right SFA, right popliteal using Emidao catheter. 10. Balloon angioplasty to the proximal SFA and distal SFA and mid SFA. Multiple inflations. 11. Final angiogram. 12. Selective left common femoral artery angiogram with distal runoff. CONSCIOUS SEDATION: Starting time is 1514, ending time is 1710. During the sedation, total use was 4 mg of Versed then 50 mcg of fentanyl. I instructed the nurse Kaur Barron under my supervision to administer sedation. During the procedure, he received 8000 units of heparin and 200 mcg of intraarterial nitroglycerin. HISTORY: The patient is a 59-year-old gentleman with history of known peripheral vascular disease with previous stent placement to the SFA, came to the hospital because of pain of the right toe with gangrenous changes and discoloration, noted initially to have cellulitis after treatment with anticoagulation and then antibiotics, was brought to the laboratory sample carrier for evaluation and treatment. TECHNIQUE: After informed consent was obtained, the patient was brought to the laboratory sample carrier on a laboratory sample carrier table, prepped and draped in usual sterile fashion. Time out was called then. Subsequently, access was obtained to the left common femoral artery using Seldinger technique. A 5-Lithuanian sheath inserted initially and through that Omni Flush catheter inserted to the abdominal aorta. Abdominal aorta angiogram with distal runoff was obtained. The catheter then was advanced and then crossed over to the right side and over the guidewire was advanced to the SFA. Subsequently, the catheter was removed. The sheath was removed and exchanged into 6-Lithuanian crossover sheath Jose 45 cm. The sheath was inserted to the right common femoral artery. Over the sheath, repeat angiogram was done. The lesion of disease was identified, seems to be the ostium of the right SFA. Subsequently, support catheter was used over the wire with a Glidewire, I was able to advance through the totally occluded vessel and subsequently to the totally occluded stents in the proximal and mid SFA and then finally I was able to navigate through all the way to the popliteal vessel. Repeat angiogram was done, showed total occlusion of the stents and total occlusion of the proximal SFA. This was treated with multiple balloon inflations starting at the distal portion of the stent with multiple inflations. Repeat angiogram showed residual significant disease with dissection of the proximal SFA. This was treated by Supera stent placement. The Supera was 5 x 100. After Supera stent placement, repeat angiogram was done and still showed significant disease within the stent. This treated with multiple balloon inflations into the stent with severe in-stent restenosis. That was treated with multiple inflations at this time using 6.0 x 100 balloon. After multiple inflations, there was significant improvement of the flow. Final angiogram done showed significant improvement of the flow with good flow through the SFA all the way to the popliteal. There is a small area of dissection distal to
[2019-11-12 08:49] LABS: Glucose Point of Care 200 (65-105)
--- NOTE | 2019-11-12 09:03 | PM.PNCARD ---
Progress Note: A&P Assessment and Plan (1) Peripheral arterial disease: Code(s): I73.9 - Peripheral vascular disease, unspecified Status: Acute Assessment and Plan: He underwent angiogram revealing total occlusion of the SFA on the right side right at the origin, with occluded 2 stents, now he has good pulses, will continue with aspirin and Plavix, okay to transfer to telemetry, and okay to discharge home whenever it is okay with all others (2) Hypertension: Code(s): I10 - Essential (primary) hypertension Status: Acute (3) Ischemic toe ulcer: Code(s): L97.509 - Non-pressure chronic ulcer of other part of unspecified foot with unspecified severity Status: Acute Assessment and Plan: Possibly ischemic ulcer, in view of severe peripheral vascular disease, and gangrenous changes. (4) Cellulitis of foot, right: Code(s): L03.115 - Cellulitis of right lower limb Status: Acute Assessment and Plan: Currently on IV antibiotics, will continue with that on planned angiogram possibly on Monday (5) Critical limb ischemia with history of revascularization of same extremity: Code(s): I99.8 - Other disorder of circulatory system; Z95.9 - Presence of cardiac and vascular implant and graft, unspecified Status: Acute Assessment and Plan: He seems to have acute limb threatening ischemia, possibly due to severe disease most likely SFA on the right side. Will proceed with angiogram, on Monday, for the time being continue with Lovenox and IV antibiotics. With a gangrenous changes on the this 4th toe he may still would need amputation but possibly only the 4th toe Additional Plan He is okay to be discharged home if it is okay with all others, I would suspect that he needs to see a beam machine operator for possible need for debridement of the 4th toe Subjective Date/time seen: 11/12/19 09:03 He feels much better today, no more leg pain, he has good pulses distally now on the right leg, no bleed no hematoma. Exam Narrative: Exam Narrative: Awake alert oriented x3 not in acute distress Neck is supple no obvious JVD, no carotid bruit Chest: Good air entry bilaterally, lungs are clear to auscultation and percussion bilaterally Cardiovascular: Regular rate and rhythm, 2/6 systolic murmur noted left sternal border Abdomen: Soft nontender bowel sounds positive Extremities: Discoloration noted of the right foot with gangrenous changes noted in the 4th toe, now has good pulses, and discoloration is improved Objective Data Vital Signs Vital Signs: Vital Signs - 24 hr 11/11/19 14:00 11/11/19 17:30 11/11/19 17:57 Temperature 36.7 C 36.8 C Pulse Rate 61 65 66 Pulse Rate [Bilateral Pedal (Dorsalis Pedis)] Respiratory Rate 16 14 16 Blood Pressure 151/47 H 184/72 H Pulse Oximetry 97 98 99 11/11/19 18:00 11/11/19 19:00 11/11/19 19:15 Temperature 36.8 C Pulse Rate 65 62 72 Pulse Rate [Bilateral Pedal (Dorsalis Pedis)] Respiratory Rate 14 16 22 H Blood Pressure 117/92 H Pulse Oximetry 98 99 97 11/11/19 19:17 11/11/19 19:30 11/11/19 19:34 Temperature Pulse Rate 72 70 71 Pulse Rate [Bilateral Pedal (Dorsalis Pedis)] Respiratory Rate 21 H 21 H 16 Blood Pressure 220/62 H 161/67 H Pulse Oximetry 98 98 99 11/11/19 19:45 11/11/19 20:00 11/11/19 20:01 Temperature Pulse Rate 64 65 67 Pulse Rate [Bilateral Pedal (Dorsalis Pedis)] Respiratory Rate 15 15 19 Blood Pressure 163/60 H Pulse Oximetry 98 97 98 11/11/19 20:15 11/11/19 20:30 11/11/19 20:45 Temperature Pulse Rate 69 71 64 Pulse Rate [Bilateral Pedal (Dorsalis Pedis)] Respiratory Rate 18 16 19 Blood Pressure Pulse Oximetry 99 99 97 11/11/19 21:00 11/11/19 21:01 11/11/19 21:15 Temperature Pulse Rate 65 66 59 L Pulse Rate [Bilateral Pedal (Dorsalis Pedis)] Respiratory Rate 19 16 19 Blood Pressure 165/54 H Pulse Oximetry 99 99 100 11/11/19 21:30 11/11/19 21:4
--- NOTE | 2019-11-12 09:25 | WPDCNINT ---
Assessment and Plan Assessment and plan (1) Peripheral arterial disease: Code(s): I73.9 - Peripheral vascular disease, unspecified Status: Acute Assessment and Plan: on 11/11/2019 patient underwent a peripheral angiogram which revealed total occlusion of the SFA on the right side. Patient status post stents x2 to SFA With good blood flow. Patient has better pulses. - Cardiology following the patient, continue aspirin and Plavix (2) Insulin dependent type 2 diabetes mellitus: Code(s): E11.9 - Type 2 diabetes mellitus without complications; Z79.4 - halfway (current) use of insulin Status: Acute Assessment and Plan: continue Lantus, sliding scale insulin and Accu-Cheks - hemoglobin A1c on 11/08/2019 was 8.0 (3) Ischemic toe ulcer: Code(s): L97.509 - Non-pressure chronic ulcer of other part of unspecified foot with unspecified severity Status: Acute Assessment and Plan: Possibly ischemic ulcer, in view of severe peripheral vascular disease, and gangrenous changes (4) Cellulitis of foot, right: Code(s): L03.115 - Cellulitis of right lower limb Status: Acute Assessment and Plan: continue levofloxacin and vancomycin (5) Hypertension: Code(s): I10 - Essential (primary) hypertension Status: Acute Assessment and Plan: blood pressures have been stable on lisinopril, metoprolol Additional Plan Discussed with patient and updated him with his condition and plan of care. I answered all questions Code status: full code critical care time spent; 35 minutes Due to a high probability of clinically significant, life threatening deterioration, the patient required my highest level of preparedness to intervene emergently and I personally spent this critical care time directly and personally managing the patient. This critical care time included obtaining a history; examining the patient; pulse oximetry; ordering and review of studies; arranging urgent treatment with development of a management plan; evaluation of patient's response to treatment; frequent reassessment; and discussions with other providers. It was exclusive of separately billable procedures and treating other patients and teaching time. Please see Assessment and Plan section and the rest of the note for further information on patient assessment and treatment Bioinformatics Technician Consult Note Consult date: 11/12/19 Time Seen: 07:01 Reason for consult: peripheral vascular disease status post angiogram with total occlusion of the SFA on the right side, status post stents x2 to SFA. HPI: Noel Rodriguez is a 59 year old male History insulin-dependent diabetes, peripheral arterial disease, chronic kidney disease, coronary artery disease and essential hypertension presented to the ED on 11/08/2019 with right foot pain The last 2-3 months, after an injury. Patient's pain worsened with increasing redness and swelling. patient has had a history of multiple angioplasties and stents to the right SFA in 2013. Patient had ABIs which showed severe distal disease. Patient was started on anticoagulation, and on 11/11/2019 patient underwent a peripheral angiogram which showed total occlusion of the right SFA which was treated with balloon angioplasty followed by stent placement with good blood flow. Patient was transfer the ICU overnight for observation. Patient seen examined this morning, is alert, awake, oriented x3. Patient has been walking around the room packing his bag. He was told by the [facility] [employer] that he is going home. Patient is hemodynamically stable, denies any chest pain, lower extremity pain, shortness of breath, abdominal pain, nausea, vomiting. Review of Systems Review of Systems: All systems reviewed & are unremarkable except as noted in HPI and below PMFSH Past Medical History Medical History ADHD (attention deficit
[2019-11-12] MEDS: CLOPIDOGREL BISULFATE 75 MG TABLET PO (09:47)
--- NOTE | 2019-11-15 06:14 | DS_ITS ---
DATE OF DISCHARGE: 11/12/2019 DIAGNOSES: 1. Peripheral vascular disease with superficial femoral artery occlusion. 2. Diabetes mellitus. 3. Hypertension. HISTORY OF PRESENT ILLNESS: Mr. Rodriguez is a 59-year-old type 2 diabetic on insulin, peripheral vascular disease, hypertension, presented to the emergency room with pain in his right foot. He had injured his foot in August and 4th and 5th toes were getting more inflamed. He continued to have erythema and edema discoloring so he came in for evaluation. He has had revascularization several years ago. His complete history and physical is enumerated in his admitting history and physical. On admission, he is afebrile. His white count is 14,000, hemoglobin 13.4, hematocrit 42, platelet 240. Sodium 138, potassium 4.1, chloride 103, total CO2 of 25, BUN 25, creatinine 1.5, glucose 165. LFTs are normal. IMAGING DATA: X-ray of the foot, no osseous abnormalities. Doppler showed severe decreased ABIs consistent with arterial occlusive disease. HOSPITAL COURSE: 1. The patient was seen in consultation by Dr. Adame, and was taken to the laboratory clerk for arteriogram on . A balloon angioplasty was performed on the superior femoral artery and it was ballooned and stented to the proximal, distal and mid. Superior disease on the left was not addressed. Post stenting, he did well. Tenderness was subsided, the color improved in the foot as did warmness. He is able to be discharged home to follow up with Dr. Adame in 2 weeks. 2. Diabetes mellitus. Blood sugar A1c was 8; the fasting on the day of discharge 169. He will be continued on his glimepiride and metformin. 3. Hypertension, pressure remained well controlled. Continue on his diuretic, beta-mike and ETHAN inhibitor. PROCEDURES DURING THIS HOSPITALIZATION: Were the Doppler ultrasound and the arteriogram. CONSULTANTS: Dr. Adame, Cardiology. CONDITION ON DISCHARGE: His blood pressure 140/90, pulse is 90, he is afebrile, saturating 98% on room air. Right foot was warm and coloration was improving. He was discharged home. ACTIVITIES: As tolerated. DIET: Diabetic, low-sodium diet. Follow up with Dr. Adame in a week and his primary care, Dr. Oleary, in 2 weeks. DISCHARGE MEDICATIONS: Include: 1. Plavix 75 daily. 2. Acetaminophen and codeine b.i.d. 3. Albuterol. 4. Ventolin inhaler. 5. Insulin aprida sliding scale. 6. Vitamin C 1000 daily. 7. Aspirin 162 daily. 8. Vitamin B12 2500 daily. 9. Lasix 40 daily. 10. Glimepiride 4 b.i.d. 11. Combivent inhalation. 12. DuoNeb q.i.d. 13. Lisinopril 10 daily. 14. Magic mouthwash 15 mL q.i.d. 15. Magnesium oxide 400 b.i.d. 16. Metformin 1000 b.i.d. 17. Metoprolol succinate 25 daily. 18. Nicotine Patch Buccal q.1 p.r.n. 19. Pravastatin 80 daily. 20. He will continue on his usual insulin Lantus 60 h.s. This entire process took 35 minutes to complete. D I MT: Temo BARLOW
== END 2019-11-12 10:00 | disposition home or self-care (01) | DRG 181 ==
LOC: ANHED 12:13 → ANH3MEDSUR 13:14 → ANHICU 11-12 09:01 → ANH3MEDSUR 11-15 11:17 → ANHICU 11-15 11:17
PROVIDERS: Specialist; Admitting Provider Family Medicine; Emergency Provider Emergency Medicine; PCP Internal Medicine; Visit Provider Internal Medicine
PROC: (CPT 75630; principal; 2019-11-11 16:00)
PROC: (CPT 36200; 2019-11-11 16:00)
PROC: (CPT 37252; 2019-11-11 16:00)
DX: E11.52 Type 2 diabetes mellitus with diabetic peripheral angiopathy with gangrene (principal); T82.856A Stenosis of peripheral vascular stent, initial encounter; L03.115 Cellulitis of right lower limb; Z79.4 Long term (current) use of insulin; E11.22 Type 2 diabetes mellitus with diabetic chronic kidney disease; I12.9 Hypertensive chronic kidney disease with stage 1 through stage 4 chronic kidney disease, or unspecified chronic kidney disease; I25.10 Atherosclerotic heart disease of native coronary artery without angina pectoris; F90.9 Attention-deficit hyperactivity disorder, unspecified type; N18.3 Chronic kidney disease, stage 3 (moderate); Z79.891 Long term (current) use of opiate analgesic; G89.4 Chronic pain syndrome; Z95.5 Presence of coronary angioplasty implant and graft; K21.9 Gastro-esophageal reflux disease without esophagitis; Z86.718 Personal history of other venous thrombosis and embolism; I25.2 Old myocardial infarction; M19.90 Unspecified osteoarthritis, unspecified site; Z95.820 Peripheral vascular angioplasty status with implants and grafts; F17.210 Nicotine dependence, cigarettes, uncomplicated; E78.5 Hyperlipidemia, unspecified; E66.9 Obesity, unspecified; Z68.32 Body mass index [BMI] 32.0-32.9, adult; I77.89 Other specified disorders of arteries and arterioles; E11.621 Type 2 diabetes mellitus with foot ulcer; L97.519 Non-pressure chronic ulcer of other part of right foot with unspecified severity
CPT/HCPCS: 36200; 36415; 37227; 37252; 73630; 75630; 80048; 80053; 80061; 80202; 83036; 83605; 85025; 85027; 85610; 85730; 87040; 93923; 94640; 96361; 96365; 96366; 96367; 96372; 96375; 99285; A9270; C1725; C1753; C1769; C1877; C1887; C1894; G0378; G0379; J1644; J1650; J1815; J1956; J2250; J2270; J3010; J3370; J7030; J7040

== ENCOUNTER 2020-01-21 13:32 | Outpatient (CLI) | payer OTHER, SELFPAY ==
--- NOTE | ~2020-01-21 | CT_ITS ---
EXAMINATION: CT lung screening DATE: 01/21/2020 14:22 INDICATION: History of tobacco use. Tobacco dependence. TECHNIQUE: Computed tomography (CT) of the chest was performed without intravenous contrast. The dose -length product was 206.19 mGy-cm. Automated exposure control and iterative reconstruction technique were employed. COMPARISON: None FINDINGS: No thoracic lymphadenopathy. There is atherosclerosis of the aorta and coronary arteries. T here are calcified mediastinal and right hilar lymph nodes consistent with chronic granulomatous dise ase. No significant pleural or pericardial effusion. Heart size is normal. There is left lower lobe a telectasis/scarring. There is mild emphysema. There are a few 2-3 mm subpleural groundglass nodules p redominantly affecting the upper lobes. No endobronchial lesions. No osteolytic or osteoblastic lesio ns. Mild thoracic spondylosis. No acute bone or joint abnormality. IMPRESSION: 1. Lung-RADS category 2: Benign appearance or behavior. Continue annual screening with noncontrast lo w-dose chest CT in 12 months. Reviewed, dictated and finalized at location A. IMPRESSION: 1. Lung-RADS category 2: Benign appearance or behavior. Continue annual screeni ng with noncontrast low-dose chest CT in 12 months.
--- NOTE | 2020-02-04 16:53 | WPDPFTINT ---
PFT Interpretation PFT Interpretation: DOS: 01/21/2020 REQUESTING: Dr. Moody REASON FOR TESTING: Tobacco dependence PULMONARY FUNCTION TESTS Results are reproducible. Spirometry: FEV1 62%, 2.09 L, moderately reduced. FVC 56%, moderately reduced. Normal FEV1%. No change with bronchodilator. Lung volumes: Total lung capacity 81%, low normal. Increased residual volume 120%. Increased RV/TLC consistent with air trapping. Increased airway resistance. Diffusion: DLCO is 61%, mildly reduced. Flow volume loop: Mild scooping of the expiratory limb. IMPRESSION: Moderate ventilatory impairment demonstrated by decreased FEV1 and FVC, with preserved ratio. Borderline low total lung capacity suggests a restrictive process, which may be due to elevated BMI. Mild diffusion defect. This is a mixed pattern. Clinical correlation recommended. Annetta Moody MD
--- NOTE | 2020-02-04 17:56 | WPDSIXMINUTE ---
Six Minute Walk Six Minute Walk: DOS: 01/21/2020 REQUESTING: Dr Moody REASON FOR TESTING: Tobacco dependence SIX MINUTE WALK This test was conducted per ATS guidelines. This was conducted on room air. The patient had a painful foot so the pace was slower than normal. Baseline heart rate was 82 and saturation 96%. The patient walked 650 ft / 198 meters without stopping. Ending heart rate was 88, saturation 96%. IMPRESSION: No desaturation with walking. No supplemental oxygen needed. Distance walked is less than expected for age and may be due to foot pain. Annetta Moody MD
== END 2020-01-21 13:33 | disposition home or self-care (01) ==
PROVIDERS: PCP Internal Medicine; Visit Provider Internal Medicine Critical Care Medicine
DX: Z12.2 Encounter for screening for malignant neoplasm of respiratory organs (principal); Z87.891 Personal history of nicotine dependence
CPT/HCPCS: 94060; 94726; 94729; G0297

== ENCOUNTER 2020-02-16 10:31 | Emergency (ER) | payer OTHER, SELFPAY ==
--- NOTE | 2020-02-16 11:00 | ED.SKABFB ---
HPI - Skin/Abscess/Foreign Bdy General Chief complaint: Extremity Problem,Nontraumatic Stated complaint: Right foot pain Time Seen by Provider: 02/16/20 11:00 Source: patient and RN notes reviewed Mode of arrival: ambulatory Limitations: no limitations History of Present Illness MD complaint: rash and discoloration Onset (ago): month(s) (3-4) Location: R foot Severity: severe Quality: burning, aching, dull and constant Pain Consistency: constant Relieving factors: none Exacerbating factors: palpation and movement Associated symptoms: denies other symptoms Treatments prior to arrival: antibiotic and prescription analgesic Related Data Home Medications Medication Instructions Recorded Confirmed ascorbic acid (vitamin C) 1,000 mg PO DAILY 11/08/19 02/16/20 aspirin 162.5 mg PO DAILY 11/08/19 02/16/20 cyanocobalamin (vitamin B-12) 2,500 mcg PO DAILY 11/08/19 02/16/20 furosemide [Lasix] 40 mg PO QAM PRN 11/08/19 02/16/20 lisinopril [Zestril] 10 mg PO DAILY 11/08/19 02/16/20 magnesium oxide 400 mg PO BID PRN 11/08/19 02/16/20 metformin [Glucophage] 1,000 mg PO BID 11/08/19 02/16/20 nicotine (polacrilex) 4 mg BUCCAL Q1H 11/08/19 02/16/20 pravastatin [Pravachol] 80 mg PO HS 11/08/19 02/16/20 Allergies Allergy/AdvReac Type Severity Reaction Status Date / Time amoxicillin Allergy Unknown Unknown Verified 11/08/19 10:46 Penicillins Allergy Unknown Anaphylactic Verified 11/08/19 10:46 Shock trimethoprim Allergy Unknown Unknown Verified 11/08/19 10:46 Review of Systems Constitutional: Constitutional: Denies chills, Denies fever(s) and Denies weakness Eyes: Eyes: Reports no additional eye complaints ENT: Reports system reviewed and no additional complaints, except as documented Cardiovascular: Cardiovascular: Reports no additional cardiovascular complaints Respiratory: Respiratory: Reports no additional respiratory complaints Gastrointestinal: Gastrointestinal: Reports no additional gastrointestinal complaints Genitourinary: Genitourinary: Reports no additional male genitourinary complaints Musculoskeletal: Musculoskeletal: Reports no additional musculoskeletal complaints Neurologic: Reports system reviewed and no additional complaints, except as documented Psychiatric: Psychiatric: Reports no additional psychiatric complaints Allergic/Immunologic: Allergic/Immunologic: Reports no additional allergic/immunologic complaints [facility] Past Medical History Medical History ADHD (attention deficit hyperactivity disorder) Chronic kidney disease, stage 3 Baseline creatinine between 1.5 and 1.60. Chronic pain syndrome On long-term opiates. Coronary artery disease With history of stents. Degenerative disc disease GERD (gastroesophageal reflux disease) History of DVT of lower extremity Hyperlipidemia Hypertension Insulin dependent type 2 diabetes mellitus Myocardial infarction Osteoarthritis Peripheral arterial disease Status post right lower extremity revascularization per Dr. Altman. Shortness of breath on exertion Tobacco abuse Surgical History Surgical History H/O cardiac catheterization History of left-sided carotid endarterectomy History of revascularization procedure of lower extremity Right lower extremity angioplasty and stent per Dr. Hurt. Family History Family History Other Cerebrovascular accident Family history of arthritis Family history of cardiovascular disease Family history of chronic obstructive pulmonary disease Family history of mental disorder Hypertension Social History Social History Social History: The patient lives in his own home in [place] with his cat. He designates his cousin Jaskaran Carr as his surrogate decision-maker and he wishes to be a full code. He is not emp
[2020-02-16 11:06] VITALS: BP 156/50; RESP 18; TEMP 36.6; O2SAT 98
[2020-02-16 11:37] LABS: Basophils Absolute Auto 0.06 K/mm3 (0.00-0.10); Basophils Percent Auto 0.5 % (0.0-1.0); Eosinophils Absolute Auto 0.37 K/mm3 (0.02-0.50); Eosinophils Percent Auto 3.3 % (1.0-6.0); Hematocrit 33.3 % (40.0-54.0); Hemoglobin 10.6 g/dL (14.0-18.0); Immature Granulocyte Absolute 0.03 K/mm3 (0.00-0.00); Immature Granulocyte Percent A 0.3 % (0.0-0.0); Lymphocytes Absolute Auto 1.87 K/mm3 (1.10-4.50); Lymphocytes Percent Auto 16.9 % (18.0-42.0); Mean Corpuscular HGB Conc 31.8 g/dL (32.0-36.0); Mean Corpuscular Hemoglobin 32.1 pg (27.0-31.0); Mean Corpuscular Volume 100.9 fL (78.0-102.0); Mean Platelet Volume 10.4 fl (8.7-11.0); Monocytes Percent Auto 6.3 % (2.0-11.0); Neutrophils Percent Auto 72.7 % (50.0-70.0); Platelet Count Result 214 K/mm3 (150-420); Red Cell Distribution Width 14.6 % (11.6-14.4); White Blood Count 11.1 K/mm3 (4.8-10.8)
--- NOTE | 2020-02-16 11:47 | PC.NURSE ---
R. FOOT SOAKED IN H20 AND HIBICLEANS FOR APPROX 10 MIN. AND L. FOOT Cleasnsed WITH HIBICLEANS AND WATER. STATES WASHES HIS FEET EVERY OTHER DAY.
[2020-02-16 11:49] LABS: Anion Gap 14.2 mmol/L (7-16); Blood Urea Nitrogen 52 mg/dL (7-18); CRP 5.2 mg/dL (0.0-0.9); Carbon Dioxide 25 mmol/L (21-32); Chloride 106 mmol/L (98-108); Estimated CRCL calculation 36 ml/min; Estimated Glomerular Filt Rate 34; Glucose 142 mg/dL (70-99); Osmolality Calculated 306 mOsm/kg (285-295); Potassium 5.2 mmol/L (3.5-5.1); Sodium 140 mmol/L (136-145)
--- NOTE | 2020-02-16 11:51 | PC.NURSE ---
FEET SOAKED IN H2O AND HIBICLEANS FOR APPROX 10 MIN. PT. STATES CLEANSED FEET EVERY OTHER DAY. NO DRAINAGE OR STREAKS NOTED.
[2020-02-16] MEDS: CLINDAMYCIN HCL 150 MG CAP 600 MG PO (12:31)
[2020-02-16 12:47] VITALS: BP 130/79; O2SAT 98
--- NOTE | 2020-02-16 12:49 | PC.NURSE ---
r. foot dressed with dry dressing and secured with gauze. l. toes dressed with betadine and gauze dressing . tolorated well. home with inst. and plan of care.
== END 2020-02-16 12:48 | disposition home or self-care (01) ==
PROVIDERS: Emergency Provider Emergency Medicine
DX: L03.115 Cellulitis of right lower limb (principal); I73.9 Peripheral vascular disease, unspecified
CPT/HCPCS: 36415; 80048; 83605; 85025; 86140; 87040; 99283; 99284; A9270

== ENCOUNTER 2020-03-12 11:01 | Outpatient (CLI) | payer OTHER, SELFPAY ==
--- NOTE | ~2020-03-12 | US_ITS ---
US arterial duplex LE RT 03/12/2020 11:59 Indication: Peripheral vascular disease. [place]. Procedure: Duplex Doppler ultrasound of the right lower extremity arteries with color flow evaluation Comparison: No prior studies for comparison. Findings: The following velocities were obtained in the right lower extremity arteries: Common femoral artery 163 cm/s, profunda femoral artery 179 cm/s, superficial femoral artery proximal ly 93 cm/s, mid SFA 95 cm/s, pre-SFA stent 87 cm/s, stent 598 cm/s, distal to the stent 75 cm/s, popl iteal artery 84 cm/s, posterior tibial artery 43 cm/s, anterior tibial artery 29 cm/s. Peroneal arter y is not visualized. Impression: 1: Patent right lower extremity arteries with increased velocity in the right superficial femoral art twan stent, although flow is identified. Reviewed, dictated and finalized at location A. Impression: 1: Patent right lower extremity arteries with increased velocity in the right s uperficial femoral artery stent, although flow is identified.
== END 2020-03-12 11:02 | disposition home or self-care (01) ==
LOC: ANHIMG 11:09
PROVIDERS: PCP Internal Medicine; Visit Provider Internal Medicine
DX: I73.9 Peripheral vascular disease, unspecified (principal); E11.628 Type 2 diabetes mellitus with other skin complications; L08.9 Local infection of the skin and subcutaneous tissue, unspecified; Z95.9 Presence of cardiac and vascular implant and graft, unspecified
CPT/HCPCS: 93926

== ENCOUNTER 2020-03-17 19:00 | Inpatient (IN) | payer OTHER, SELFPAY ==
--- NOTE | ~2020-03-17 | XR_ITS ---
EXAMINATION: XR chest PICC line DATE: 03/25/2020 12:54 INDICATION: Central line placement. TECHNIQUE: A single frontal view of the chest was obtained. COMPARISON: Chest CT 01/21/2020 FINDINGS: There is mild atelectasis in left lower lung zone. Calcified right hilar lymph nodes are co nsistent with old granulomatous disease. No pleural effusion or pneumothorax. The heart size is paola l. A right upper extremity peripherally inserted central venous catheter (PICC) is seen with tip in t he superior cavoatrial junction. IMPRESSION: 1. PICC tip in the superior cavoatrial junction. Reviewed, dictated and finalized at location A.
--- NOTE | ~2020-03-17 | US_ITS ---
US arterial duplex LE RT 03/20/2020 16:42 Indication: Follow-up right lower extremity arteries post angioplasty Procedure: High-resolution heart material Doppler examination of the right lower extremity arteries Comparison: Ultrasound KATIE dated 03/20/2020 Findings: The following right lower extremity artery velocities are obtained: Common femoral artery 1 34 cm/s, profunda femoral artery 10 6 cm/s, SFA proximal 1 61 cm/s, SFA mid 1 96 cm/s, SFA distal 1 72 cm/s, popliteal artery 100 cm/s, posterior tibial artery 35 cm/s, peroneal artery 96 cm/s, anterior tibial artery 87 cm/s. Impression: 1: Patent right lower extremity arteries with significant velocity gradient between the popliteal and posterior tibial arteries, consistent with stenosis. Reviewed, dictated and finalized at location A. Impression: 1: Patent right lower extremity arteries with significant velocity gradient bet ween the popliteal and posterior tibial arteries, consistent with stenosis.
--- NOTE | ~2020-03-17 | XR_ITS ---
EXAMINATION: XR foot RT min 3V EXAM DATE: 03/17/2020 19:51 INDICATION: Right foot wound, necrosis to fourth and fifth toes. TECHNIQUE: Right foot dorsoplantar, lateral and oblique projections obtained and reviewed. Compariso n is made to prior examination from 11/08/2019. FINDINGS: Right metatarsal bones unremarkable. There is fifth toe soft tissue ulceration identified . Probable erosive change at the tuft of the conjoined middle and distal phalanx, new finding compare d to prior study in October. Small calcaneal spurs. There are no acute fractures identified. IMPRESSION: Suspect development of fifth tuft erosion, probably osteomyelitis. Overlying ulceration. Reviewed, dictated and finalized at location A.
--- NOTE | ~2020-03-17 | US_ITS ---
EXAMINATION: US arterial ankle brachial ind DATE: 03/20/2020 13:16 INDICATION: Necrotic fourth and fifth toes of the right foot. TECHNIQUE: Segmental pressures and plethysmographic and Doppler waveforms of the brachial and lower e xtremity arteries were obtained. COMPARISON: None. FINDINGS: Right and left brachial artery pressures of 164 mm Hg and 173 mm Hg, respectively, are concordant (no rmal difference <= 30 mmHg). The right ankle-brachial index (KATIE) is 0.52 (normal >= 0.9-1.0). The right great toe-brachial index (TBI) is 0.34 (normal >= 0.65). Arterial Doppler waveforms are biphasic waveforms at the right senior interior designer ior tibial and dorsalis pedis arteries with brisk systolic upstrokes at the former and with delayed u pstrokes and broadened systolic peaks at the latter. The left KATIE is 0.37. The left TBI is 0.45. Arterial Doppler waveforms are biphasic with mildly delay ed upstrokes and broadened systolic peaks at both the left posterior tibial and dorsalis pedis arteri es. IMPRESSION: 1. Bilateral arterial occlusive disease with moderately decreased right and severely decreased left A BIs. Reviewed, dictated and finalized at location A. IMPRESSION: 1. Bilateral arterial occlusive disease with moderately decreased right and sev erely decreased left ABIs.
--- NOTE | ~2020-03-17 | US_ITS ---
EXAMINATION: US arterial ankle brachial ind DATE: 03/18/2020 11:02 INDICATION: Bilateral lower limb arterial occlusive disease with prior right lower limb stenting anastasia tional risk factors of diabetes, hypercholesterolemia, hypertension and smoking. TECHNIQUE: Segmental pressures and plethysmographic and Doppler waveforms of the brachial and lower e xtremity arteries were obtained. COMPARISON: None. FINDINGS: Right and left brachial artery pressures of 182 mm Hg and 172 mm Hg, respectively, are concordant (no rmal difference <= 30 mmHg). The right ankle-brachial index (KATIE) is 0.46 (normal >= 0.9-1.0). The right great toe-brachial index (TBI) is 0.69 (normal >= 0.65). Arterial Doppler waveforms are biphasic with mildly delayed upstrokes at both the right posterior tibial and dorsalis pedis arteries. The left KATIE is 0.35. The left TBI is 0.25. Arterial Doppler waveforms are biphasic with mildly delay ed upstrokes at both the left posterior tibial and dorsalis pedis arteries. IMPRESSION: 1. Bilateral arterial occlusive disease with severely decreased bilateral ABIs, left greater than rig ht. The right great toe brachial index remains normal and it is unclear whether this is artifactual o r due to collateral supply bypassing the anterior and posterior tibial arteries which demonstrate sig nificant lower pressures. Reviewed, dictated and finalized at location A. IMPRESSION: 1. Bilateral arterial occlusive disease with severely decreased bilateral ABIs, left greater than right. The right great toe brachial index remains normal and it is unclear whether this is artifactual or due to collateral supply bypassin g the anterior and posterior tibial arteries which demonstrate significant lowe r pressures.
[2020-03-17 18:57] VITALS: BP 158/110; PULSE 80; RESP 20; TEMP 36.7; O2SAT 98
--- NOTE | 2020-03-17 19:06 | ED.GENADULT ---
HPI - General Adult General Chief complaint: Extremity Problem,Nontraumatic Stated complaint: LEG Time Seen by Provider: 03/17/20 19:05 Source: patient Mode of arrival: EMS Limitations: no limitations History of Present Illness HPI narrative: Patient is a 59-year-old male with a history of chronic kidney disease, diabetes, peripheral vascular disease who presents for evaluation of worsening right foot pain. Patient reports that he has had worsening right foot pain over the course of 2 weeks. He recently had an ultrasound which showed increased velocity through previous stent location in the right SFA, but still flow patent. Stent was placed by Dr. Shannan De Anda and the patient was referred here by Dr. Chand today. Patient with erythema and wounds to the fourth and fifth phalanxes on the right foot, he has been on Keflex by his PCP and has been seeing podiatry without much improvement. Patient denies fever, chills, there is redness around the foot. No purulent discharge. Patient has decreased sensation, but is able to appreciate some pain in the foot. Per chart review, in the past several months, patient has been on several courses of antibiotics including Levaquin, Keflex, clindamycin. Related Data Home Medications Medication Instructions Recorded Confirmed ascorbic acid (vitamin C) 1,000 mg PO DAILY 11/08/19 03/09/20 aspirin 162.5 mg PO DAILY 11/08/19 02/16/20 cyanocobalamin (vitamin B-12) 2,500 mcg PO DAILY 11/08/19 03/09/20 furosemide [Lasix] 40 mg PO QAM PRN 11/08/19 03/09/20 lisinopril [Zestril] 10 mg PO DAILY 11/08/19 03/09/20 magnesium oxide 400 mg PO BID PRN 11/08/19 03/09/20 metformin [Glucophage] 1,000 mg PO BID 11/08/19 03/09/20 nicotine (polacrilex) 4 mg BUCCAL Q1H 11/08/19 03/09/20 pravastatin [Pravachol] 80 mg PO HS 11/08/19 03/09/20 insulin syringe-needle U-100 /2 #90 each 03/05/20 03/09/20 mL 31 gauge x 15/64 magnesium oxide 400 mg (241.3 mg 400 mg PO DAILY tablet 03/05/20 03/09/20 magnesium) tablet nicotine 14 mg/24 hr daily 1 patch TRANSDERMAL DAILY each 03/05/20 03/09/20 transdermal patch nitroglycerin 0.4 mg sublingual 0.4 mg SUBLINGUAL Q5M tablet 03/05/20 03/09/20 tablet pen needle, diabetic 31 gauge x #30 each 03/05/20 03/09/20 3/16 Allergies Allergy/AdvReac Type Severity Reaction Status Date / Time trimethoprim Allergy Unknown Unknown Verified 03/17/20 19:10 amoxicillin AdvReac Unknown shortness Verified 03/17/20 19:10 of breath Penicillins AdvReac Unknown Anaphylactic Verified 03/17/20 19:10 Shock Review of Systems Review of Systems: Narrative: CONSTITUTIONAL: Denies fever, chills, or sweats. ENT: Denies rhinorrhea, congestion, sore throat, or otalgia. CARDIOVASCULAR: Denies chest pain, palpitations, or edema. RESPIRATORY: Denies cough or dyspnea. GASTROINTESTINAL: Denies abdominal pain, nausea, vomiting, or diarrhea. GENITOURINARY: Denies dysuria or hematuria. SKIN: Reports wound on fourth and fifth toes, right foot MUSCULOSKELETAL: Denies back pain, joint pain, or myalgia. NEUROLOGIC: Denies headache, reports bilateral peripheral neuropathy PMF Past Medical History Medical History ADHD (attention deficit hyperactivity disorder) Cellulitis of both feet Chronic kidney disease, stage 3 Baseline creatinine between 1.5 and 1.60. Chronic pain syndrome On long-term opiates. Coronary artery disease With history of stents. Degenerative disc disease Diabetic foot infection GERD (gastroesophageal reflux disease) History of DVT of lower extremity Hyperlipidemia Hypertension Insulin dependent type 2 diabetes mellitus Myocardial infarction Osteoarthritis Peripheral arterial disease Status post right lower extremity revascularization per Dr. Altman. Shortness of breath on exertion Tobacco abuse Surgical History Surgical History H/O cardiac catheterization H
[2020-03-17 19:38] LABS: Basophils Absolute Auto 0.1 K/mm3 (0.0-0.1); Basophils Percent Auto 0.8 % (0.2-1.2); Eosinophils Absolute Auto 0.3 K/mm3 (0-0.3); Eosinophils Percent Auto 3.2 % (0-4.4); Hematocrit 31.4 % (42.0-52.0); Immature Granulocyte Absolute 0.03 K/mm3 (0.00-0.031); Immature Granulocyte Percent A 0.3 % (0-0.5); Lymphocytes Percent Auto 20.3 % (18.3-44.2); Mean Corpuscular HGB Conc 31.8 g/dl (32-36); Mean Corpuscular Hemoglobin 31.3 pg (26-34); Mean Corpuscular Volume 98.4 fl (80-100); Monocytes Absolute Auto 0.6 K/mm3 (0.1-0.6); Monocytes Percent Auto 5.8 % (2.6-8.5); Neutrophils Absolute Auto 7.2 K/mm3 (1.3-6.7); Neutrophils Percent Auto 69.6 % (45.5-73.1); Platelet Count Result 234 k/mm3 (150-375); Red Blood Count 3.19 M/mm3 (4.6-6.20); Red Cell Distribution Width 14.3 % (11.5-14.5); White Blood Count 10.3 K/mm3 (4.5-10.0)
[2020-03-17 19:46] LABS: Prothrombin Time 12.7 Seconds (11.1-14.7)
[2020-03-17 19:47] LABS: Partial Thromboplastin Time 27.5 SECONDS (22.3-36.8)
[2020-03-17 20:03] LABS: Erythrocyte Sedimentation Rate > 140 mm/hr (0-20)
[2020-03-17 20:09] LABS: Alanine Aminotransferase 18 U/L (4-50); Alkaline Phosphatase 64 U/L (38-126); Aspartate Amino Transferase 23 U/L (17-59); Bilirubin,Total 0.3 mg/dL (0.2-1.3); Blood Urea Nitrogen 31 mg/dL (9-20); CRP 3.1 mg/dL (<1.0); Calcium 9.1 mg/dL (8.4-10.2); Carbon Dioxide 27 mmol/L (22-30); Chloride 107 mmol/L (98-107); Estimated CRCL calculation 62 ml/min; Estimated Glomerular Filt Rate 52; Glucose 127 mg/dL (75-110); Potassium 3.9 mmol/L (3.4-5.0); Sodium 140 mmol/L (137-145)
[2020-03-17 20:30] VITALS: PULSE 75; RESP 20; O2SAT 98
--- NOTE | 2020-03-17 21:09 | PC.NURSE ---
right foot 4th and 5th digits black and painful ultrasound done this week
[2020-03-17] MEDS: HEPARIN SOD/D5W 100 UNITS/ML 25,000 UNITS/250 ML BAG 10 UNITS IV CONT (21:23)
[2020-03-17 21:39] VITALS: BP 148/102; PULSE 74; RESP 20; O2SAT 98
[2020-03-17 22:24] VITALS: BP 106/68; PULSE 84; RESP 22; TEMP 36.3; O2SAT 98
[2020-03-17 22:25] VITALS: BMI 31.9
[2020-03-17 22:27] VITALS: PULSE 74; RESP 20; O2SAT 98
[2020-03-17 22:31] VITALS: BMI 31.9
[2020-03-17 22:32] VITALS: BP 106/68; PULSE 84; RESP 22; TEMP 36.3; O2SAT 98
--- NOTE | 2020-03-17 22:39 | ADMGEN ---
This patient, Noel Rodriguez, was admitted to Medical Room 246-. Patient/family oriented to hospital policies and general routines including ID bracelet, bed and alarms, visiting hours, pain management, procedures, bathroom and other care routines, personal items, smoking policy, room service/diet, and visiting hours. Valuables list has been completed. Information on how to activate the Rapid Response Team has been discussed. Patient/Family are encouraged to report perceived risks to care and to ask questions if they do not understand what they are told or what they should do.
[2020-03-18] MEDS: PRAVASTATIN SODIUM 20 MG TABLET 80 MG PO ×2 (03:22→20:20)
[2020-03-18] MEDS: SALINE 0.65% NAS SOLN 44 ML BTL 2 SPRAY NASAL (03:22)
[2020-03-18 03:36] LABS: Basophils Absolute Auto 0.1 K/mm3 (0.0-0.1); Basophils Percent Auto 0.5 % (0.2-1.2); Eosinophils Absolute Auto 0.4 K/mm3 (0-0.3); Eosinophils Percent Auto 3.9 % (0-4.4); Hematocrit 29.2 % (42.0-52.0); Hemoglobin 9.2 g/dL (14.0-18.0); Immature Granulocyte Absolute 0.03 K/mm3 (0.00-0.031); Immature Granulocyte Percent A 0.3 % (0-0.5); Lymphocytes Absolute Auto 2.02 K/mm3 (0.9-3.2); Lymphocytes Percent Auto 20.2 % (18.3-44.2); Mean Corpuscular HGB Conc 31.5 g/dl (32-36); Mean Corpuscular Hemoglobin 30.9 pg (26-34); Mean Platelet Volume 10.6 fl (7.4-10.4); Monocytes Absolute Auto 0.7 K/mm3 (0.1-0.6); Monocytes Percent Auto 6.8 % (2.6-8.5); Neutrophils Absolute Auto 6.8 K/mm3 (1.3-6.7); Neutrophils Percent Auto 68.3 % (45.5-73.1); Platelet Count Result 209 k/mm3 (150-375); Red Blood Count 2.98 M/mm3 (4.6-6.20); Red Cell Distribution Width 14.3 % (11.5-14.5)
[2020-03-18] MEDS: HEPARIN SODIUM 5,000 UNITS/ML VIAL 4000 UNITS IV PUSH (03:54)
[2020-03-18 05:59] VITALS: BP 162/78; PULSE 73; RESP 20; TEMP 36.2; O2SAT 95
[2020-03-18 07:23] LABS: Glucose Point of Care 143 (65-105)
[2020-03-18] MEDS: CYANOCOBALAMIN 500 MCG TABLET 2500 MCG PO (07:39)
[2020-03-18 07:40] VITALS: PULSE 73
[2020-03-18] MEDS: METOPROLOL SUCCINATE EXT REL 25 MG TABCR PO (07:40)
[2020-03-18] MEDS: ASPIRIN 81 MG CHEWABLE TABLET 162 MG PO (07:40)
[2020-03-18] MEDS: lisinopriL 10 MG TABLET PO (07:40)
[2020-03-18] MEDS: CLOPIDOGREL BISULFATE 75 MG TABLET PO (07:40)
--- NOTE | 2020-03-18 09:35 | PM.IMHP ---
H&P: HPI History of Present Illness Chief complaint: Osteomyelitis, Peripheral Arterial Disease Narrative: Date of visit 03/18 830. Noel Rodriguez is a 59 year old hypertensive type 2 diabetic with peripheral vascular disease and stage III renal disease who presents to the emergency room with increasing pain in his right foot. Been worsening over the past 2 weeks. Has taken antibiotics without relief. Originally had stenting of the right superficial femoral artery [place] [address] Hurt and subsequently had restenting of the same artery which was occluded in October of [address] Adame here at [facility]. X-rays in ER looks like osteo in the tuff of his 4th and 5th toe and was admitted for IV heparin therapy, antibiotics, and consultation by vascular and Ortho. He has had no fever no chills. Pain has been tolerable but he has chronic neuropathy pain.. Review of Systems Review of Systems: Narrative: Constitutional as stated no fever or chills but E states that over the past 6 months probably lost 30-40 lb with about of depression Eye no double vision [place] gets his eyes checked regularly with his diabetes Mouth irritated thinks he has thrush Pulmonary no increased shortness of breath wheezing or cough CV no chest pain or palpitation GI no melena hematochezia diarrhea no dysuria no hematuria Muscle skeletal neuropathy pain primarily Integument no skin breakdown rashes other than the foot wound Psych has history of depression PMFSH Past Medical History Medical History ADHD (attention deficit hyperactivity disorder) Cellulitis of both feet Chronic kidney disease, stage 3 Baseline creatinine between 1.5 and 1.60. Chronic pain syndrome On long-term opiates. Coronary artery disease With history of stents. Degenerative disc disease Diabetic foot infection GERD (gastroesophageal reflux disease) History of DVT of lower extremity Hyperlipidemia Hypertension Insulin dependent type 2 diabetes mellitus Myocardial infarction Osteoarthritis Peripheral arterial disease Status post right lower extremity revascularization per Dr. Altman. Shortness of breath on exertion Tobacco abuse Surgical History Surgical History H/O cardiac catheterization History of left-sided carotid endarterectomy History of revascularization procedure of lower extremity Right lower extremity angioplasty and stent per Dr. Hurt. Family History Family History (Updated 03/18/20 @ 09:48 by Skinny Wilkerson MD) Father , age 91 CAD Acute myocardial infarction Mother , age 85 CVA Cerebrovascular accident Other Family history of arthritis Family history of cardiovascular disease Family history of chronic obstructive pulmonary disease Family history of mental disorder Hypertension Social History Social History (Updated 03/18/20 @ 09:49 by Skinny Wilkerson MD) Social History: The patient lives in his own home in [place] with his cat. He designates his cousin Jaskaran Carr as his surrogate decision-maker and he wishes to be a full code. 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 He smokes between 5 and 20 cigarettes and 20 cigarettes/day. No drug use. He has no children. Smoking packs per day: 0.5 Smoking cigarettes per day: 10.0 Years smoked: 44 Smoking pack-years: 22.00 Smoking status: Current every day smoker Tobacco type: cigarettes Second hand tobacco smoke exposure: Yes Alcohol intake: never Substance use: current Substance use type: marijuana Other substance usage details: tried marijuana for pain relief 03/16/2020 Last use: 03/16/2020 Gender identity (if verbalized by the patient): Male Spiritual care concerns: No Agree to blood products: Yes Meds Home Medications and Allergies Home Medications Medication Instructions Recorded Confirmed Type met
--- NOTE | 2020-03-18 09:39 | PM.CNCAR ---
Assessment and Plan Assessment and plan (1) Peripheral vascular disease: Code(s): I73.9 - Peripheral vascular disease, unspecified Status: Acute Assessment and Plan: Patient with resent Right SFA stenting in Oct 2019 presents now with gangrene of the toes in the setting of non compliance and ongoing tobacco abuse Arterial duplex from last week revealed increased velocity at the stent consistent with in-stent restenosis Continue IV heparin for now. Surgery consult requested, he will likely need amputation Continue abx Will consider repeat angiogram once assure he is not bacteremic with the osteomylitis (2) Osteomyelitis: Qualifiers: Laterality: right Osteomyelitis location: foot Osteomyelitis type: other acute Qualified Code(s): M86.171 - Other acute osteomyelitis, right ankle and foot Code(s): M86.9 - Osteomyelitis, unspecified Status: Acute Assessment and Plan: Consider ID consult (3) Coronary artery disease involving chicken ranch coronary artery of chicken ranch heart: Code(s): I25.10 - Atherosclerotic heart disease of chicken ranch coronary artery without angina pectoris Status: Acute Assessment and Plan: He has history of PCI per patient more then 5 years ago at [facility]. No chest pain. Check EKG Continue ASA, Plavix and statin (4) Insulin dependent type 2 diabetes mellitus: Code(s): E11.9 - Type 2 diabetes mellitus without complications; Z79.4 - penitentiary (current) use of insulin Status: Acute (5) Tobacco abuse: Code(s): Z72.0 - Tobacco use Status: Acute Assessment and Plan: Smoking cessation counseling History of Present Illness History of Present Illness Consult date/time: 03/18/20 09:39 59 years-old Male with h/o Diabetes mellitus, Hypertension, Dyslipidemia,CAD s/p PCI, peripheral vascular disease, s/p [employer] ARCHITECT to R SFA and active tobacco abuse who presented with worsening lower ext pain and worsening foot ulcers He had tele medicine visit with Dr Adame yesterday when he reported feeling poorly with leg pain as well as skin discoloration. Had recent arterial duplex showing increased velocity within the stent consistent with instent restenosis however he had distal flow. He was instructed to go to ER. He continues to smoke 1/2 - 1 1/2 ppd. He was here in 11/08/19 , had angiogram revealed total occlusion of SFA, this was treated with stent placement to the proximal SFA with good distal flow. No chest pain. No shortness of breath at rest. No orthopnea. No PND's. No dizziness. No palpitation. No syncope or near syncope. No leg swelling. No nausea and vomiting. No side effects from medications. Patient has family history of cardiovascular disease, COPD, HTN and mental disorders. Angiogram 11/10/2019 Severe peripheral vascular disease with acute or subacute occlusion of the previously stented SFA. This was treated with multiple balloon angioplasty and stent placement to the proximal portion with significant improvement of the flow. Reason For Visit: Osteomyelitis, Peripheral Arterial Disease Review of Systems Review of Systems: All systems reviewed & are unremarkable except as noted in HPI and below Constitutional: Constitutional: Denies fatigue and Denies headache(s) Eyes: Eyes: Denies blurry vision ENT: Reports Normal hearing present and Denies headache(s) Cardiovascular: Cardiovascular: Denies chest pain, Denies diaphoresis, Denies pedal edema, Denies leg edema, Denies lightheadedness, Denies palpitations and Denies dyspnea Respiratory: Respiratory: Denies cough and Denies dyspnea Gastrointestinal: Gastrointestinal: Denies abdominal pain Musculoskeletal: Musculoskeletal: Denies back pain Neurologic: Reports Normal hearing present and Denies headache(s) Psychiatric: Psychiatric: Denies anxiety Endocrine: Endocrine: Denies fatigue and Denies palpitations PMF Past Medical History Medic
--- NOTE | 2020-03-18 09:42 | PM.CNOR ---
Assessment and Plan Assessment and plan (1) Gangrene of toe of right foot: Code(s): I96 - Gangrene, not elsewhere classified Status: Acute Assessment and Plan: New patient evaluation for chief complaint right 4th, 5th toe gangrene. History, physical exam and radiographs reviewed with the patient. Discussed the condition, nature, etiology and course of natural history with the patient. Treatment options including surgical and nonoperative treatment were reviewed. Risks and benefits of each as well as alternatives reviewed. The patient's questions were answered. Conservative treatment with Betadine ointment until vascular status evaluated. discussed with patient that arterial disease would need to be addressed prior to any surgery for his toes. At this point with his decreased vascularity any surgery would have difficulty and high likelihood of wound healing problems. No drainage or signs of active infection at this time. May continue with conservative care until vascular status improved. (2) Diabetic peripheral neuropathy: Code(s): E11.42 - Type 2 diabetes mellitus with diabetic polyneuropathy Status: Acute (3) Peripheral arterial disease: Code(s): I73.9 - Peripheral vascular disease, unspecified Status: Acute Assessment and Plan: Bilateral lower extremity ABIs and TBIs to evaluate arterial disease (4) Chronic kidney disease (CKD) stage G3a/A2, moderately decreased glomerular filtration rate (GFR) between 45-59 mL/min/1.73 square meter and albuminuria creatinine ratio between 30-299 mg/g: Code(s): N18.3 - Chronic kidney disease, stage 3 (moderate) Status: Acute History of Present Illness HPI Consult date: 03/18/20 Requesting physician: Skinny Wilkerson MD Consult reason: other (right toe necrosis) Chief complaint: Osteomyelitis, Peripheral Arterial Disease Narrative: 59-year-old gentleman with history of peripheral arterial vascular disease who presented to the emergency room with worsening of the right 4th and 5th toes. Noticed discoloration over a month ago. Now with increased loss of skin and black coloration. Increased pain throughout the toes and the end right foot. No new injury. No fever or chills. History of peripheral arterial disease. Status post stent of the right popliteal artery by Dr. Hurt. More recent status post stent of the SFA on the right leg 1 month ago. History of blister to the left great toe treated conservatively. Left side has largely improved. Complains of decreased sensation both feet. Review of Systems Constitutional: Constitutional: Denies fever(s) Eyes: Eyes: Denies blurry vision ENT: Reports Normal hearing present Cardiovascular: Cardiovascular: Denies chest pain and Denies dyspnea Respiratory: Respiratory: Denies dyspnea and Denies wheezing Gastrointestinal: Gastrointestinal: Denies abdominal pain Genitourinary: Genitourinary: Denies urinary urgency Musculoskeletal: Musculoskeletal: Reports as per HPI and Reports numbness ( Bilateral feet) Integumentary/Breasts: Skin/Breast: Denies changing lesions and Reports sores ( right toes) Neurologic: Reports Normal hearing present, Denies behavioral changes, Denies confusion, Reports numbness ( lower extremities) and Denies convulsions Psychiatric: Psychiatric: Denies behavioral changes, Denies confusion and Denies hallucinations Endocrine: Endocrine: Denies heat intolerance Hematologic/Lymphatic: Hematologic/Lymphatic: Denies easy bleeding Allergic/Immunologic: Allergic/Immunologic: Denies wheezing [facility] Past Medical History Medical History ADHD (attention deficit hyperactivity disorder) Cellulitis of both feet Chronic kidney disease, stage 3 Baseline creatinine between 1.5 and 1.60. Chronic pain syndrome On long-term opiates. Coronary artery disease With history of stents. Degenerative disc disease [place]
--- NOTE | 2020-03-18 10:26 | PC.NURSE ---
Patient to ultrasound per stretcher.
[2020-03-18 10:27] LABS: Partial Thromboplastin Time 105.7 SECONDS (22.3-36.8)
--- NOTE | 2020-03-18 11:08 | PC.NURSE ---
Patient return from ultrasound.
--- NOTE | 2020-03-18 11:33 | PM.PNORT ---
Progress Note: A&P Assessment and Plan (1) Gangrene of toe of right foot: Code(s): I96 - Gangrene, not elsewhere classified Status: Acute Assessment and Plan: bilateral lower extremity KATIE and toe pressures reviewed. Severe bilateral arterial insufficiency. Recommend revascularization prior to proceeding with surgical treatment of the toes. (2) Peripheral arterial disease: Code(s): I73.9 - Peripheral vascular disease, unspecified Status: Acute Subjective Subjective Date/Time Seen: 03/18/20 11:33 Objective Data Vital Signs Vital Signs: Vital Signs - 24 hr 03/17/20 18:57 03/17/20 20:30 03/17/20 21:39 Temperature 98.0 F Pulse Rate 80 75 74 Respiratory Rate 20 20 20 Blood Pressure 158/110 H 148/102 H Pulse Oximetry 98 98 98 03/17/20 22:24 03/17/20 22:27 03/17/20 22:32 Temperature 97.4 F L 97.4 F L Pulse Rate 84 74 84 Respiratory Rate 22 H 20 22 H Blood Pressure 106/68 106/68 Pulse Oximetry 98 98 98 03/18/20 05:59 03/18/20 07:40 Temperature 97.1 F L Pulse Rate 73 73 Respiratory Rate 20 Blood Pressure 162/78 H Pulse Oximetry 95 Intake/Output Intake/Output: Intake & Output 03/15/20 03/16/20 03/17/20 03/18/20 23:59 23:59 23:59 23:59 Intake Total 250 776 Output Total 300 Balance 250 476 Meds/Results Medications: Active Medications Generic Name Dose Route Start Last Admin Trade Name Freq PRN Reason Stop Dose Admin Acetaminophen 650 mg 03/17/20 20:40 Tylenol Tablet PO Q4H PRN Mild Pain (1-3) or Fever Albuterol 2 puff 03/18/20 01:56 Proventil Hfa INHALATION Q4H PRN Shortness Of Breath Aspirin 162 mg 03/18/20 09:00 03/18/20 07:40 Aspirin Chewable PO 162 mg DAILY RHONDA Administration Clopidogrel Bisulfate 75 mg 03/18/20 09:00 03/18/20 07:40 Plavix PO 75 mg QAM RHONDA Administration Cyanocobalamin 2,500 mcg 03/18/20 09:00 03/18/20 07:39 Vitamin B-12 Tab PO 2,500 mcg DAILY RHONDA Administration Dextrose 12.5 gm 03/18/20 01:47 Dextrose 50% Syringe IV PUSH PRN PRN Hypoglycemia Protocol Glucagon 1 mg 03/18/20 01:47 Glucagon For Inj IM PRN PRN Hypoglycemia Protocol Glucose 15 gm 03/18/20 01:47 Glutose 15 PO PRN PRN Hypoglycemia Protocol Heparin Sodium (Porcine) 4,000 units 03/17/20 19:43 03/18/20 03:54 Heparin Sodium IV PUSH 4,000 units PRN PRN Administration aPTT less than 55 seconds Heparin Sodium (Porcine) 3,500 units 03/17/20 19:43 Heparin Sodium IV PUSH PRN PRN aPTT 55 - 70 seconds Heparin Sodium/Dextrose 25,000 units in 250 mls @ 13 mls/hr 03/17/20 19:45 03/18/20 10:30 Heparin Sodium/D5w 100 Units/Ml IV CONT 1,300 units/hr .[id number] RHONDA 13 mls/hr Titration Protocol 1,300 UNITS/HR Vancomycin HCl 1,500 mg in 500 mls @ 333.333 mls/hr 03/18/20 16:00 Vancomycin 1,500 Mg/D5w 500 Ml IVPB Q18H [facility]ONDA Dextrose 1,000 mls @ 100 mls/hr 03/18/20 01:47 Dextrose 5% 1,000 Ml IVPB PRN PRN Hypoglycemia Protocol Insulin Aspart 3 - 6 units 03/18/20 08:00 03/18/20 07:25 Novolog SUB-Q Not Given TIDWM [facility] Protocol Insulin Glargine 60 units 03/18/20 17:00 Lantus SUB-Q 1700 [facility] Lisinopril 10 mg 03/19/20 17:00 Prinivil PO DAILY@1700 [facility] Magnesium Oxide 400 mg 03/18/20 01:44 Mag-Ox PO BID PRN constipation Metoprolol Succinate 25 mg 03/18/20 09:00 03/18/20 07:40 Toprol Xl PO 25 mg DAILY RHONDA Administration Nicotine Polacrilex 4 mg 03/18/20 01:45 Nicorette 4 Mg Gum BUCCAL PRN PRN Nicotine Cravings Nitroglycerin 0.4 mg 03/18/20 01:48 Nitrostat Subl 0.4 Mg (1/150) SUBLINGUAL Q5M PRN Chest Pain Nystatin 5 ml 03/18/20 13:00 Nystatin 100,000 Units/Ml Susp PO QID [facility]ONDA Oxycodone HCl 5 mg 03/18/20 03:09 03/18/20 11:23 Roxicodone Ir Tablet
[2020-03-18 11:46] LABS: Glucose Point of Care 128 (65-105)
[2020-03-18] MEDS: NYSTATIN 100,000 UNITS/ML SUSP 5 ML ORAL.SUSP PO ×3 (13:04→20:20)
[2020-03-18 14:00] VITALS: BP 101/73; PULSE 66; RESP 18; TEMP 36.8; O2SAT 100
[2020-03-18 14:10] LABS: Lactate Dehydrogenase 448 U/L (313-618)
[2020-03-18 14:11] LABS: Partial Thromboplastin Time 81.3 SECONDS (22.3-36.8)
[2020-03-18 15:00] LABS: Vitamin B12 > 1000.0 pg/mL (239-931)
[2020-03-18 15:02] LABS: Iron 97 ug/dL (49-181)
[2020-03-18 15:12] LABS: Percent Iron Saturation 36 % (20-50)
[2020-03-18 16:17] LABS: Glucose Point of Care 183 (65-105)
[2020-03-18] MEDS: HEPARIN SOD/D5W 100 UNITS/ML 25,000 UNITS/250 ML BAG 13 UNITS IV CONT (16:46)
[2020-03-18] MEDS: INSULIN GLARGINE (*BKC) 100 UNITS/ML 50 UNITS SUB-Q (16:57)
[2020-03-18 17:20] LABS: Partial Thromboplastin Time 89.2 SECONDS (22.3-36.8)
[2020-03-18 21:32] LABS: Glucose Point of Care 148 (65-105)
[2020-03-18 22:00] VITALS: BP 190/49; PULSE 75; RESP 20; TEMP 36.1; O2SAT 99
[2020-03-19] VITALS (29 sets, daily range): BP systolic 112–194; BP diastolic 44–95; PULSE 66–104; RESP 12–23; TEMP 36.1–36.7; O2SAT 92–100
--- NOTE | 2020-03-19 01:27 | PC.NURSE ---
Pt removed foot dressing complaining of discomfort. I informed him that he would need to keep his foot off of the ground if he will not keep it wrapped as his wound appears to frequently become contaminated with debris from the floor. Reinforced possibility of further infection from this and from frequently picking at the wounds.
[2020-03-19 05:30] LABS: Basophils Absolute Auto 0.1 K/mm3 (0.0-0.1); Eosinophils Absolute Auto 0.4 K/mm3 (0-0.3); Eosinophils Percent Auto 4.1 % (0-4.4); Hematocrit 28.5 % (42.0-52.0); Hemoglobin 9.1 g/dL (14.0-18.0); Immature Granulocyte Absolute 0.02 K/mm3 (0.00-0.031); Immature Granulocyte Percent A 0.2 % (0-0.5); Lymphocytes Absolute Auto 2.63 K/mm3 (0.9-3.2); Lymphocytes Percent Auto 28.3 % (18.3-44.2); Mean Corpuscular HGB Conc 31.9 g/dl (32-36); Mean Corpuscular Hemoglobin 31.1 pg (26-34); Mean Corpuscular Volume 97.3 fl (80-100); Mean Platelet Volume 10.9 fl (7.4-10.4); Monocytes Absolute Auto 0.7 K/mm3 (0.1-0.6); Neutrophils Absolute Auto 5.5 K/mm3 (1.3-6.7); Neutrophils Percent Auto 59.4 % (45.5-73.1); Platelet Count Result 197 k/mm3 (150-375); Red Blood Count 2.93 M/mm3 (4.6-6.20); Red Cell Distribution Width 13.9 % (11.5-14.5); White Blood Count 9.3 K/mm3 (4.5-10.0)
[2020-03-19 05:33] LABS: Partial Thromboplastin Time 109.5 SECONDS (22.3-36.8)
[2020-03-19 05:41] LABS: Blood Urea Nitrogen 21 mg/dL (9-20); Calcium 8.8 mg/dL (8.4-10.2); Carbon Dioxide 26 mmol/L (22-30); Chloride 107 mmol/L (98-107); Estimated CRCL calculation 67 ml/min; Estimated Glomerular Filt Rate 57; Glucose 98 mg/dL (75-110); Potassium 3.9 mmol/L (3.4-5.0); Sodium 135 mmol/L (137-145)
--- NOTE | 2020-03-19 07:41 | PC.NURSE ---
Patient to seed analysis laboratory assistant for procedure. Heparin drip saline locked.
--- NOTE | 2020-03-19 08:03 | WPDMODSED ---
Moderate Sedation Note-Pt Data Patient Data Allergies Allergy/AdvReac Type Severity Reaction Status Date / Time trimethoprim Allergy Unknown Unknown Verified 03/17/20 19:10 amoxicillin AdvReac Unknown shortness Verified 03/17/20 19:10 of breath Penicillins AdvReac Unknown Anaphylactic Verified 03/17/20 19:10 Shock Home Medications Medication Instructions Recorded Confirmed Type metoprolol succinate 25 mg 25 mg PO DAILY #30 tablet 09/30/19 03/17/20 Rx tablet,extended release 24 hr albuterol sulfate 90 mcg/actuation 1 inhalation INHALATION Q4H PRN 10/07/19 03/17/20 Rx aerosol inhaler #6.7 gm aspirin 162.5 mg PO DAILY 11/08/19 03/17/20 History cyanocobalamin (vitamin B-12) 2,500 mcg PO DAILY 11/08/19 03/17/20 History furosemide [Lasix] 40 mg PO QAM PRN 11/08/19 03/17/20 History lisinopril [Zestril] 10 mg PO DAILY 11/08/19 03/17/20 History magnesium oxide 400 mg PO BID PRN 11/08/19 03/17/20 History nicotine (polacrilex) 4 mg BUCCAL Q1H 11/08/19 03/17/20 History pravastatin [Pravachol] 80 mg PO HS 11/08/19 03/17/20 History ipratropium 0.5 mg-albuterol 3 mg 3 ml INHALATION QID PRN #90 ml 11/27/19 03/17/20 Rx (2.5 mg base)/3 mL nebulization soln clopidogrel 75 mg tablet 75 mg PO QAM #90 tablet 12/09/19 03/17/20 Rx insulin syr/ndl U100 half liz 0.3 #100 each 12/12/19 03/18/20 Rx mL 31 gauge x 5/16 glimepiride 4 mg tablet 4 mg PO BID PRN #180 tablet 12/31/19 03/17/20 Rx acetaminophen 300 mg-codeine 60 mg 1 tablet PO BID 30 Days #60 tablet 02/06/20 03/17/20 Rx tablet MDD 2 tablets insulin syringe-needle U-100 1/2 #90 each 03/05/20 03/18/20 History mL 31 gauge x 15/64 nitroglycerin 0.4 mg sublingual 0.4 mg SUBLINGUAL Q5M PRN tablet 03/05/20 03/17/20 History tablet pen needle, diabetic 31 gauge x #30 each 03/05/20 03/18/20 History 3/ insulin glargine 100 unit/mL (3 See Rx Instructions .ROUTE 03/13/20 03/17/20 Rx mL) subcutaneous pen .COMPLEX #15 ml insulin lispro 100 unit/mL See Rx Instructions .ROUTE 03/13/20 03/17/20 Rx subcutaneous solution .COMPLEX #20 ml sodium chloride [Saline Nasal] 2 spray INTRANASAL Q4H PRN 03/17/20 03/17/20 History Current Medications: Active Medications Acetaminophen (Tylenol Tablet) 650 mg PO Q4H PRN PRN Reason: Mild Pain (1-3) or Fever Albuterol (Proventil Hfa) 2 puff INHALATION Q4H PRN PRN Reason: Shortness Of Breath Aspirin (Aspirin Chewable) 162 mg PO DAILY [facility] Last Admin: 03/18/20 07:40 Dose: 162 mg Documented by: Clopidogrel Bisulfate (Plavix) 75 mg PO QAM [facility] Last Admin: 03/18/20 07:40 Dose: 75 mg Documented by: Cyanocobalamin (Vitamin B-12 Tab) 2,500 mcg PO DAILY [facility] Last Admin: 03/18/20 07:39 Dose: 2,500 mcg Documented by: Dextrose (Dextrose 50% Syringe) 12.5 gm IV PUSH PRN PRN; Protocol PRN Reason: Hypoglycemia Glucagon (Glucagon For Inj) 1 mg IM PRN PRN; Protocol PRN Reason: Hypoglycemia Glucose (Glutose 15) 15 gm PO PRN PRN; Protocol PRN Reason: Hypoglycemia Heparin Sodium (Porcine) (Heparin Sodium) 4,000 units IV PUSH PRN PRN PRN Reason: aPTT less than 55 seconds Last Admin: 03/18/20 03:54 Dose: 4,000 units Documented by: Heparin Sodium (Porcine) (Heparin Sodium) 3,500 units IV PUSH PRN PRN PRN Reason: aPTT 55 - 70 seconds Heparin Sodium/Dextrose (Heparin Sodium/D5w 100 Units/Ml) 25,000 units in 250 mls @ 0 mls/hr IV CONT .Q0M [facility]; Protocol Last Titration: 03/19/20 07:43 Dose: 0 units/hr, 0 mls/hr Documented by: Vancomycin HCl (Vancomycin 1,500 Mg/D5w 500 Ml) 1,500 mg in 500 mls @ 333.333 mls/hr IVPB Q18H [facility] Last Infusion: 03/18/20 18:01 Dose: Infused Documented by: Dextrose (Dextrose 5% 1,000 Ml) 1,000 mls @ 100 mls/hr IVPB PRN PRN; Protocol PRN Reason: Hypoglycemia Insulin Aspart (Novolog) 3 - 6 units SUB-Q TIDWM [facility]; Protocol Last Admin: 03/19/20 07:44 Dose: Not Given Documented by: Insulin Glargine (Lantus) 50 units SUB-Q 1700 [facility]ON[facility] Last Admin: 03/18/20 16:57 Dose: 50 units Documented
[2020-03-19 09:09] LABS: Activated Clotting Time 98 sec (74-137)
[2020-03-19 09:09] LABS: Activated Clotting Time 219 sec (74-137)
--- NOTE | 2020-03-19 09:17 | PM.PNCARD ---
Progress Note: A&P Assessment and Plan (1) Peripheral vascular disease: Code(s): I73.9 - Peripheral vascular disease, unspecified Status: Acute Assessment and Plan: Patient with resent Right SFA stenting in Oct 2019 presents now with gangrene of the toes in the setting of non compliance and ongoing tobacco abuse Arterial duplex from last week revealed increased velocity at the stent consistent with in-stent restenosis Continue IV heparin for now. Surgery consult requested, he will likely need amputation He underwent angiogram, revealing severe stenosis of the mid SFA in 2 locations, underwent balloon angioplasty followed by drug coated balloon angioplasty, to prevent restenosis. Did well with that, he now has really good blood flow down to the foot (2) Osteomyelitis: Qualifiers: Laterality: right Osteomyelitis location: foot Osteomyelitis type: other acute Qualified Code(s): M86.171 - Other acute osteomyelitis, right ankle and foot Code(s): M86.9 - Osteomyelitis, unspecified Status: Acute Assessment and Plan: Consider ID consult He has gangrene to the toes, he would need amputation, should be okay from cardio and vascular point of view to proceed with that (3) Coronary artery disease involving [place] coronary artery of [place] heart: Code(s): I25.10 - Atherosclerotic heart disease of [place] coronary artery without angina pectoris Status: Acute Assessment and Plan: He has history of PCI per patient more then 5 years ago at [facility]. No chest pain. Check EKG Continue ASA, Plavix and statin (4) Insulin dependent type 2 diabetes mellitus: Code(s): E11.9 - Type 2 diabetes mellitus without complications; Z79.4 - rodent exterminator (current) use of insulin Status: Acute (5) Tobacco abuse: Code(s): Z72.0 - Tobacco use Status: Acute Assessment and Plan: Smoking cessation counseling Subjective Date/time seen: 03/19/20 09:17 He feels okay today still with pain of the right foot, he underwent angiogram, revealing severe stenosis of the mid SFA in 2 locations, underwent balloon angioplasty followed by drug coated balloon angioplasty, to prevent restenosis. Did well with that, he now has really good blood flow down to the foot Exam Const: General: no acute distress Eyes: Sclera: sclerae normal Neck: Neck: no JVD Carotids: no bruits Resp: Effort & Inspection: normal respiratory effort Auscultation: clear to auscultation bilaterally Cardio: Rate: regular rate and not tachycardic Rhythm: regular rhythm Heart sounds: no gallops, no murmurs and no rubs Skin: General skin exam: normal color Neuro: Cranial nerves: Yes Normal hearing present Speech: normal speech Extrem: Other: gangrene of the 4th and 5th toes of the right foot, surrounding erythema noted Psych: Affect: normal affect Objective Data Vital Signs Vital Signs: Vital Signs - 24 hr 03/18/20 14:00 03/18/20 22:00 03/19/20 06:00 Temperature 36.8 C 36.1 C L 36.1 C L Pulse Rate 66 75 66 Respiratory Rate 18 20 20 Blood Pressure 101/73 190/49 H 180/44 H Pulse Oximetry 100 99 100 Intake/Output Intake/Output: Intake & Output 03/16/20 03/17/20 03/18/20 03/19/20 23:59 23:59 23:59 23:59 Intake Total 250 2466 190 Output Total 800 400 Balance 250 1666 -210 Meds/Results Medications: Active Medications Generic Name Dose Route Start Last Admin Trade Name Freq PRN Reason Stop Dose Admin Acetaminophen 650 mg 03/17/20 20:40 Tylenol Tablet PO Q4H PRN Mild Pain (1-3) or Fever Albuterol 2 puff 03/18/20 01:56 Proventil Hfa INHALATION Q4H PRN Shortness Of Breath Aspirin 162 mg 03/18/20 09:00 03/19/20 09:15 Aspirin Chewable PO Not Given DAILY [facility] Clopidogrel Bisulfate 75 mg 03/18/20 09:00 03/19/20 09:15 Plavix PO Not Given QAM [facility] Cyanocobalamin 2,500 mcg 03/18/20 09:00
--- NOTE | 2020-03-19 09:20 | WPDCARDPROC ---
Cardiac Cath Procedure Note Date of procedure:: 03/19/20 Performing physician:: Jassi Adame MD Procedure: 1. Ultrasound-guided access to the left common femoral artery. 2. Abdominal aorta angiogram distal runoff. 3. Right common femoral artery angiogram with distal runoff using contralateral access. 4. Balloon angioplasty to the previously stented mid SFA proximal SFA and distal SFA. 5. Repeat angiogram to the above. 6. Balloon angioplasty to the distal, mid and proximal SFA using drug eluting balloon to prevent restenosis. 7. Final angiogram of the above. 8. Conscious sedation starting time is 8:09 a.m. ending time is 9:09 a.m. using 100 micro g of fentanyl and 3 mg of Versed administered by nurse shoulder under my supervision Biological Scientist: Dr. Jassi Adame Complications: None. Sedation: Conscious sedation, local anesthesia, using 3 mg of Versed said, 100 mcg of fentanyl, and using 1% lidocaine for local anesthesia. Technique: After informed consent was obtained from patient, was brought to the medical lab assistant, put in the medical lab assistant table, prepped and draped in usual sterile fashion. Left groin was prepped and draped, 1% lidocaine was used for local anesthesia, ultrasound-guided access was obtained initially with micropuncture catheter, and subsequently upsized to a 5 [place] sheath, the sheath was flushed. Omniflush catheter was used advanced to the abdominal aorta abdominal aorta angiogram was done with distal runoff. The catheter was advanced to cross to the contralateral side from the left to the right, and the wire was advanced all the way to the right SFA. The catheter was pushed all the way to the proximal SFA, the wire was pulled and stiff Amplatz wire was used for exchange. Over the Amplatz wire this sheath was exchanged into 6 [place] long sheath to cross over from [id number]. The tip of the sheath was advanced all the way to the external right iliac artery close to the common right femoral artery. The sheath was flushed, ACT was checked, and 8000 units of heparin was given at this time. With this sheath angiogram was done visualizing the right common femoral artery right SFA and distal runoff. The areas of stenosis were identified. [place] 0.14 wire was inserted advanced through all the lesions all the way to the peroneal right vessel, an [id number] [place] balloon initially 5 x 100 was inserted advanced to the distal SFA, with areas of narrowing noted, multiple inflations were done at the level of the distal mid and proximal SFA. With good improvement of the lesions. Repeat angiogram was done showed significant improvement of the lesion but still persistent spots in the midsection, this treated with another balloon angioplasty using 6 x 40 [place] balloon, inflated to the mid SFA, and proximal SFA. Finally drug-eluting Plutonix balloon was used 5 x 150, was inflated at the distal and mid SFA and was left for 2 minutes inflated to release the drug, subsequently after deflated with pulled and applied again to the proximal SFA for 2 minutes to release the residual of the drug. Finally balloon was withdrawn, final angiogram was done showed significant improvement of the lesions with good distal runoff. The sheath was pulled applying manual pressure for arterial hemostasis. Patient tolerated the procedure no complication, taken from the medical lab assistant to his room in stable condition stable vital signs. Hemodynamics: aortic pressure 188/90 . Angiographic findings: Abdominal aorta with no significant disease or stenosis, left common iliac showed minimal plaque no obstructive lesion, left external iliac showed [id number] diffuse plaque but no obstructive lesion, left internal iliac showed minimal disease. Left common femoral is patent with mild to moderate calcification. Left SFA seems to be totally occluded but that is chronic. On the right side right common iliac is patent with minimal disease, right external iliac is patent with mild
[2020-03-19] MEDS: METOPROLOL SUCCINATE EXT REL 25 MG TABCR PO (10:27)
[2020-03-19] MEDS: hydrALAZINE HCL 20 MG/ML VIAL 10 MG IV PUSH (12:19)
--- NOTE | 2020-03-19 14:35 | PC.NURSE ---
Patient returned from chest pain center at 1435. Groin site dry and intact.
[2020-03-19 14:55] LABS: Glucose Point of Care 122 (65-105)
--- NOTE | 2020-03-19 15:56 | PM.IMPN ---
Progress Note: A&P Assessment and Plan (1) Osteomyelitis: Qualifiers: Laterality: right Osteomyelitis location: foot Osteomyelitis type: other acute Qualified Code(s): M86.171 - Other acute osteomyelitis, right ankle and foot Code(s): M86.9 - Osteomyelitis, unspecified Status: Acute Assessment and Plan: As evidence by physical exam and x-ray of the foot. Placed on vancomycin and imipemem D # 2 . Angioplasty of superior femoral artery today and partially occluded stent. Ortho following for probable later amputation (2) Critical limb ischemia with history of revascularization of same extremity: Code(s): I99.8 - Other disorder of circulatory system; Z95.9 - Presence of cardiac and vascular implant and graft, unspecified Status: Acute Assessment and Plan: With his peripheral vascular disease and past history was placed on IV heparin and a be seen by Cardiology who took to syrup machine laborer today and performed angioplasty of SFA where had partially occluded stent. Good flow was achieved (3) Insulin dependent type 2 diabetes mellitus: Code(s): E11.9 - Type 2 diabetes mellitus without complications; Z79.4 - FDC (current) use of insulin Status: Acute Assessment and Plan: Continue the Lantus and sliding scale and hold on his oral hypoglycemics FBS today 122 (4) Hypertension: Code(s): I10 - Essential (primary) hypertension Status: Acute Assessment and Plan: Continue Qasim and beta-mike at present time, if pressure continues to run slightly elevated then will increase QASIM-inhibitor [place] calcium channel mike (5) Chronic kidney disease (CKD) stage G3a/A2, moderately decreased glomerular filtration rate (GFR) between 45-59 mL/min/1.73 square meter and albuminuria creatinine ratio between 30-299 mg/g: Code(s): N18.3 - Chronic kidney disease, stage 3 (moderate) Status: Acute Assessment and Plan: Creatinine stable actually slightly better than had been still stage III 1.3 today 03/19 (6) Coronary artery disease involving [place] coronary artery of [place] heart: Code(s): I25.10 - Atherosclerotic heart disease of [place] coronary artery without angina pectoris Status: Acute Assessment and Plan: Inactive problem continue his beta-mike, statin, QASIM-inhibitor and aspirin Subjective Date/time seen: 03/19/20 15:56 Interval history: Date of visit 03/19. 59-year-old hypertensive type 2 diabetic with chronic renal failure stage 3 chronic anemia admitted with cellulitis and osteomyelitis of right foot Underwent angioplasty of stented SFA this a.m. with good results in increased flow. Still having quite a bit of pain. Exam Narrative: Exam Narrative: Blood pressure 170/50 pulse 68 afebrile saturating 98% on room air Pupils equal reactive to light sclera anicteric Neck supple no adenopathy thyromegaly or carotid bruits Lungs clear no wheezing or consolidation CV regular rate rhythm faint systolic murmur lower left sternal border Abdomen soft nontender no masses bowel sounds normal active Extremities without edema distal pulses dorsalis pedis posterior tibial are not palpable Right foot the 4th and 5th phalange are necrotic in the [place] and dry Left foot has some superficial skin removal though clean and dry Neuro drowsy at present time post proceedure Psych affect somewhat blunted Integument no other skin breakdown or rashes other than those found on the foot exam Objective Data Vital Signs Vital Signs: Vital Signs - 24 hr 03/18/20 22:00 03/19/20 06:00 03/19/20 09:30 Temperature 36.1 C L 36.1 C L Pulse Rate 75 66 90 Respiratory Rate 20 20 16 Blood Pressure 190/49 H 180/44 H 184/60 H Pulse Oximetry 99 100 03/19/20 09:45 03/19/20 10:00 03/19/20 10:15 Temperature Pulse Rate 91 75 73 Respiratory Rate 14 12 12 Blood Pressure 194/56 H 182/59 H 178/50 H Pulse Oximetry 92 95 94 03/19/20 10:27 03/19/20 10:30
[2020-03-19 16:10] LABS: Activated Clotting Time 158 sec (74-137)
[2020-03-19 16:10] LABS: Activated Clotting Time 147 sec (74-137)
[2020-03-19 16:10] LABS: Activated Clotting Time 191 sec (74-137)
[2020-03-19] MEDS: NYSTATIN 100,000 UNITS/ML SUSP 5 ML ORAL.SUSP PO ×2 (16:31→20:46)
[2020-03-19] MEDS: lisinopriL 10 MG TABLET PO (16:31)
[2020-03-19] MEDS: PRAVASTATIN SODIUM 20 MG TABLET 80 MG PO (20:46)
[2020-03-19] MEDS: INSULIN GLARGINE (*BKC) 100 UNITS/ML 25 UNITS SUB-Q (20:57)
[2020-03-19 21:30] LABS: Glucose Point of Care 220 (65-105)
--- NOTE | 2020-03-19 23:52 | PC.NURSE ---
Pt states he requested hemphill catheter prior to cardiac cath procedure this AM. No documentation available regarding placement.
[2020-03-20] VITALS (13 sets, daily range): BP systolic 155–180; BP diastolic 41–56; PULSE 63–98; RESP 16–20; TEMP 36.1–36.9; O2SAT 98–100
[2020-03-20 04:20] LABS: Vancomycin Trough 13.7 ug/mL (10.0-20.0)
[2020-03-20 06:53] LABS: Glucose Point of Care 185 (65-105)
[2020-03-20] MEDS: ASPIRIN 81 MG CHEWABLE TABLET 162 MG PO (09:24)
[2020-03-20] MEDS: CYANOCOBALAMIN 500 MCG TABLET 2500 MCG PO (09:24)
[2020-03-20] MEDS: METOPROLOL SUCCINATE EXT REL 25 MG TABCR PO (09:25)
[2020-03-20] MEDS: NYSTATIN 100,000 UNITS/ML SUSP 5 ML ORAL.SUSP PO ×4 (09:25→20:37)
[2020-03-20] MEDS: CLOPIDOGREL BISULFATE 75 MG TABLET PO (09:25)
--- NOTE | 2020-03-20 11:22 | PM.PNORT ---
Progress Note: A&P Assessment and Plan (1) Gangrene of toe of right foot: Code(s): I96 - Gangrene, not elsewhere classified Status: Acute Assessment and Plan: Unchanged and stable at this time. No further necrosis or signs of infection. (2) Peripheral arterial disease: Code(s): I73.9 - Peripheral vascular disease, unspecified Status: Acute Assessment and Plan: Status post balloon angioplasty. No palpable pulses. Capillary refill appears unchanged. Acute and chronic changes on exam of the toes noted with evidence of poor arterial flow. Will check new ABIs and TBIs for vascular assessment. Potential for healing surgical procedure the toes very low with poor blood flow. Recommend against any operative procedure to the toes or foot until blood flow improved Subjective Subjective Date/Time Seen: 03/20/20 11:22 Complains of bilateral forefoot and toe pain at rest. Unrelieved with recent revascularization. Complains of back pain after having to lie flat after the procedure. Has a history of back pain. Exam Const: General: No in distress or confusion Orientation/consciousness: oriented to person, oriented to place, oriented to time and No confusion HENMT: Head: normal to inspection, normocephalic and atraumatic Eyes: Conjunctivae: conjunctivae normal Sclera: sclerae normal Neck: Neck: supple and nontender Resp: Effort & Inspection: normal respiratory effort and no audible wheezes Cardio: Rate: regular rate Rhythm: regular rhythm Skin: Wounds: wounds noted ( right 4th and 5th toe, left hallux) Neuro: General: oriented to person, oriented to place, oriented to time and No confusion Extrem: Right upper extremity: normal to inspection Left upper extremity: normal to inspection Right lower extremity: ankle and foot; no edema Left lower extremity: ankle and foot Other: no tenderness and no swelling and foot Details: abnormal to inspection ( Dry gangrene small toe, 4th toe) Details: cyanosis, tenderness (plantar heel ) Location: of the dorsal foot and of another digit Location: the 4th digit, the 5th digit, at the distal phalanx and over the nailbed, abnormal ROM of toe Details: pain with active ROM Location: of all toes, vascular exam Details: abnormal capillary refill Location: of all toes and cyanosis Location: of the 4th digit and of the 5th digit; dorsalis pedis pulse absent and posterior tibial pulse absent, tendon exam Details: active flexion abnormal Location: of all toes and active extension abnormal Location: of all toes and motor-sensory exam (strength 4/5 throughout . Light touch sensation absent throughout ) Details: two point discrimination abnormal Location: in all toes and light-touch abnormal Location: in all toes; no crepitus; no edema Left lower extremity: ankle Details: normal ROM (dorsiflexion -10, planter flexion 40, inversion 15, E version 5 ); no tenderness and no swelling and foot Details: tenderness ( hallux ) Location: of the great toe Location: at the distal phalanx and along the dorsal aspect, no edema, vascular exam Details: abnormal capillary refill Location: of all toes and coolness; dorsalis pedis pulse absent and posterior tivial pulse absent, motor-sensory exam (strength 4/5 . Light touch sensation not intact ) two point discrimination abnormal in all toes and light-touch abnormal in all toes and other ( [place] monofilament sensation absent midfoot through toes); no lacerations and no ecchymosis Psych: Affect: normal affect Objective Data Vital Signs Vital Signs: Vital Signs - 24 hr 03/19/20 11:30 03/19/20 12:00 03/19/20 12:55 Temperature Pulse Rate 67 68 84 Respiratory Rate 13 19 20 Blood Pressure 184/61 H 173/59 H 170/79 H Pulse Oximetry 97 94 98 03/19/20 13:00 03/19/20 13:05 03/19/20 13:10 Temperature Pulse Rate 80 87 91 Respiratory Rate 19 19 20 Blood Pressure 169/59 H 172/61 H 177/53 H Pulse Oximetry 94 97 94 03/19/20
[2020-03-20 11:26] LABS: Glucose Point of Care 160 (65-105)
--- NOTE | 2020-03-20 14:00 | PM.PNCARD ---
Progress Note: A&P Assessment and Plan (1) Peripheral vascular disease: Code(s): I73.9 - Peripheral vascular disease, unspecified Status: Acute Assessment and Plan: Patient with resent Right SFA stenting in Oct 2019 presents now with gangrene of the toes in the setting of non compliance and ongoing tobacco abuse He underwent angiogram, revealing severe stenosis of the mid SFA in 2 locations, underwent balloon angioplasty followed by drug coated balloon angioplasty, to prevent restenosis. Did well with that, he now has really good blood flow down to the foot, I can't feel and tibial pulse, KATIE were done but I think they were suboptimal as they did not check his popliteal pressure. (2) Osteomyelitis: Qualifiers: Laterality: right Osteomyelitis location: foot Osteomyelitis type: other acute Qualified Code(s): M86.171 - Other acute osteomyelitis, right ankle and foot Code(s): M86.9 - Osteomyelitis, unspecified Status: Acute Assessment and Plan: Consider ID consult He has gangrene to the toes, he would need amputation, should be okay from cardio and vascular point of view to proceed with that (3) Coronary artery disease involving [place] coronary artery of [place] heart: Code(s): I25.10 - Atherosclerotic heart disease of [place] coronary artery without angina pectoris Status: Acute Assessment and Plan: He has history of PCI per patient more then 5 years ago at [facility]. No chest pain. Check EKG Continue ASA, Plavix and statin (4) Insulin dependent type 2 diabetes mellitus: Code(s): E11.9 - Type 2 diabetes mellitus without complications; Z79.4 - care home (current) use of insulin Status: Acute (5) Tobacco abuse: Code(s): Z72.0 - Tobacco use Status: Acute Assessment and Plan: Smoking cessation counseling Subjective Date/time seen: 03/20/20 14:00 Interval history: Feels okay today, still with pain toes, he underwent angioplasty with drug-eluting balloon to mid right SFA with very good result and significant improvement of the flow Exam Const: General: no acute distress Eyes: Sclera: sclerae normal Neck: Neck: no JVD Carotids: no bruits Resp: Effort & Inspection: normal respiratory effort Auscultation: clear to auscultation bilaterally Cardio: Rate: regular rate and not tachycardic Rhythm: regular rhythm Heart sounds: no gallops, no murmurs and no rubs Skin: General skin exam: normal color Neuro: Cranial nerves: Yes Normal hearing present Speech: normal speech Extrem: Other: gangrene of the 4th and 5th toes of the right foot, surrounding erythema noted Psych: Affect: normal affect Objective Data Vital Signs Vital Signs: Vital Signs - 24 hr 03/19/20 14:15 03/19/20 14:30 03/19/20 15:00 Temperature 36.7 C Pulse Rate 76 81 73 Respiratory Rate 16 22 H 18 Blood Pressure 156/53 H 173/47 H 177/46 H Pulse Oximetry 98 97 99 03/19/20 15:30 03/19/20 16:00 03/19/20 17:00 Temperature Pulse Rate 68 71 73 Respiratory Rate 19 21 H 16 Blood Pressure 172/48 H 178/67 H 171/53 H Pulse Oximetry 98 98 97 03/19/20 18:00 03/19/20 19:00 03/19/20 20:00 Temperature Pulse Rate 77 80 104 H Respiratory Rate 19 Blood Pressure 182/54 H 179/55 H Pulse Oximetry 98 98 03/19/20 22:00 03/20/20 00:00 03/20/20 02:24 Temperature 36.3 C L 36.1 C L Pulse Rate 88 98 74 Respiratory Rate 20 16 Blood Pressure 169/44 H 163/47 H Pulse Oximetry 98 98 03/20/20 04:00 03/20/20 06:00 03/20/20 08:00 Temperature 36.4 C L Pulse Rate 63 67 66 Respiratory Rate 16 Blood Pressure 155/44 H Pulse Oximetry 98 03/20/20 09:25 03/20/20 10:00 Temperature 36.9 C Pulse Rate 72 72 Respiratory Rate 16 Blood Pressure 165/41 H Pulse Oximetry 99 Intake/Output Intake/Output: Intake & Output 03/17/20 03/18/20 03/19/20 03/20/20 23:59 23:59 23:59 23:59 Intake Total 250 [id number]
--- NOTE | 2020-03-20 14:28 | PM.IMPN ---
Progress Note: A&P Assessment and Plan (1) Osteomyelitis: Qualifiers: Laterality: right Osteomyelitis location: foot Osteomyelitis type: other acute Qualified Code(s): M86.171 - Other acute osteomyelitis, right ankle and foot Code(s): M86.9 - Osteomyelitis, unspecified Status: Acute Assessment and Plan: As evidence by physical exam and x-ray of the foot. Placed on vancomycin and imipemem D # 3 . Angioplasty of superior femoral artery 03/19 and partially occluded stent. Ortho following for probable later amputation but they are concerned blood still too poor (2) Critical limb ischemia with history of revascularization of same extremity: Code(s): I99.8 - Other disorder of circulatory system; Z95.9 - Presence of cardiac and vascular implant and graft, unspecified Status: Acute Assessment and Plan: With his peripheral vascular disease and past history was placed on IV heparin and a be seen by Cardiology who took to laborer powerhouse 03/19 and performed angioplasty of SFA where had partially occluded stent. 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 Status: Acute Assessment and Plan: Continue the Lantus and sliding scale and hold on his oral hypoglycemics FBS today 185 per finger stick (4) Hypertension: Code(s): I10 - Essential (primary) hypertension Status: Acute Assessment and Plan: Continue Qasim and beta-mike at present time, with pressure continuing to run slightly elevated will add amlodipine 5 qd (5) Chronic kidney disease (CKD) stage G3a/A2, moderately decreased glomerular filtration rate (GFR) between 45-59 mL/min/1.73 square meter and albuminuria creatinine ratio between 30-299 mg/g: Code(s): N18.3 - Chronic kidney disease, stage 3 (moderate) Status: Acute Assessment and Plan: Creatinine stable actually slightly better than had been still stage III 1.3 today 03/19, recheck am (6) Coronary artery disease involving [place] coronary artery of [place] heart: Code(s): I25.10 - Atherosclerotic heart disease of [place] coronary artery without angina pectoris Status: Acute Assessment and Plan: Inactive problem continue his beta-mike, statin, QASIM-inhibitor and aspirin Subjective Date/time seen: 03/20/20 14:28 Interval history: Date of visit 03/20. 59-year-old hypertensive type 2 diabetic with chronic renal failure stage 3 chronic anemia admitted with cellulitis and osteomyelitis of right foot Underwent angioplasty of stented SFA 03/19. with good results in increased flow per cardiology. Still having quite a bit of pain. Exam Narrative: Exam Narrative: Blood pressure 160/56 pulse 72 afebrile saturating 98% on room air Pupils equal reactive to light sclera anicteric Neck supple no adenopathy thyromegaly or carotid bruits Lungs clear no wheezing or consolidation CV regular rate rhythm faint systolic murmur lower left sternal border Abdomen soft nontender no masses bowel sounds normal active Extremities without edema distal pulses dorsalis pedis posterior tibial are not palpable Right foot the 4th and 5th phalange are necrotic in the [place] and dry Left foot has some superficial skin removal though clean and dry Neuro alert with no focal deficits Psych affect somewhat blunted Integument no other skin breakdown or rashes other than those found on the foot exam Objective Data Vital Signs Vital Signs: Vital Signs - 24 hr 03/19/20 14:30 03/19/20 15:00 03/19/20 15:30 Temperature 36.7 C Pulse Rate 81 73 68 Respiratory Rate 22 H 18 19 Blood Pressure 173/47 H 177/46 H 172/48 H Pulse Oximetry 97 99 98 03/19/20 16:00 03/19/20 17:00 03/19/20 18:00 Temperature Pulse Rate 71 73 77 Respiratory Rate 21 H 16 Blood Pressure 178/67 H 171/53 H 182/54 H Pulse Oximetry 98 97 98
[2020-03-20] MEDS: lisinopriL 10 MG TABLET PO (18:30)
[2020-03-20] MEDS: INSULIN GLARGINE (*BKC) 100 UNITS/ML 50 UNITS SUB-Q (18:33)
[2020-03-20] MEDS: INSULIN ASPART (*BKC) 100 UNITS/ML SUB-Q (18:37)
[2020-03-20 19:00] LABS: Glucose Point of Care 224 (65-105)
[2020-03-20] MEDS: PRAVASTATIN SODIUM 20 MG TABLET 80 MG PO (20:37)
[2020-03-20] MEDS: ENOXAPARIN 40 MG/0.4 ML SYRINGE SUB-Q (20:37)
[2020-03-20 21:17] LABS: Glucose Point of Care 198 (65-105)
[2020-03-21] VITALS (13 sets, daily range): BP systolic 138–172; BP diastolic 46–85; PULSE 63–90; RESP 16–18; TEMP 36.1–36.9; O2SAT 98–100
[2020-03-21] MEDS: HYDROMORPHONE HCL 1 MG/ML INJ 0.5 MG IV PUSH (05:07)
[2020-03-21 05:35] LABS: Basophils Absolute Auto 0.1 K/mm3 (0.0-0.1); Basophils Percent Auto 0.8 % (0.2-1.2); Eosinophils Absolute Auto 0.2 K/mm3 (0-0.3); Eosinophils Percent Auto 1.7 % (0-4.4); Hematocrit 27.5 % (42.0-52.0); Hemoglobin 8.9 g/dL (14.0-18.0); Immature Granulocyte Absolute 0.06 K/mm3 (0.00-0.031); Immature Granulocyte Percent A 0.5 % (0-0.5); Lymphocytes Absolute Auto 2.53 K/mm3 (0.9-3.2); Lymphocytes Percent Auto 21.8 % (18.3-44.2); Mean Corpuscular HGB Conc 32.4 g/dl (32-36); Mean Corpuscular Hemoglobin 30.7 pg (26-34); Mean Corpuscular Volume 94.8 fl (80-100); Mean Platelet Volume 10.8 fl (7.4-10.4); Monocytes Absolute Auto 1.1 K/mm3 (0.1-0.6); Monocytes Percent Auto 9.1 % (2.6-8.5); Neutrophils Absolute Auto 7.7 K/mm3 (1.3-6.7); Neutrophils Percent Auto 66.1 % (45.5-73.1); Platelet Count Result 219 k/mm3 (150-375); Red Cell Distribution Width 13.8 % (11.5-14.5); White Blood Count 11.6 K/mm3 (4.5-10.0)
[2020-03-21 05:36] LABS: Blood Urea Nitrogen 17 mg/dL (9-20); Calcium 8.6 mg/dL (8.4-10.2); Carbon Dioxide 26 mmol/L (22-30); Chloride 106 mmol/L (98-107); Estimated CRCL calculation 73 ml/min; Estimated Glomerular Filt Rate > 60; Glucose 70 mg/dL (75-110); Potassium 3.2 mmol/L (3.4-5.0); Sodium 136 mmol/L (137-145)
[2020-03-21 07:44] LABS: Glucose Point of Care 95 (65-105)
[2020-03-21] MEDS: NYSTATIN 100,000 UNITS/ML SUSP 5 ML ORAL.SUSP PO ×4 (08:15→20:34)
[2020-03-21] MEDS: CYANOCOBALAMIN 500 MCG TABLET 2500 MCG PO (08:15)
[2020-03-21] MEDS: ASPIRIN 81 MG CHEWABLE TABLET 162 MG PO (08:15)
[2020-03-21] MEDS: CLOPIDOGREL BISULFATE 75 MG TABLET PO (08:15)
[2020-03-21] MEDS: METOPROLOL SUCCINATE EXT REL 25 MG TABCR PO (08:16)
--- NOTE | 2020-03-21 09:11 | PM.PNORT ---
Progress Note: A&P Assessment and Plan (1) Peripheral arterial disease: Code(s): I73.9 - Peripheral vascular disease, unspecified Status: Acute Assessment and Plan: Status post balloon angioplasty. No palpable pulses. Capillary refill appears unchanged. Acute and chronic changes on exam of the toes noted with evidence of poor arterial flow. New ABIs and TBIs show continued reduced blood flow to distal extremities- moderate right, severe left. Essentially unchanged from previous . Potential for healing surgical procedure of the toes very low with poor blood flow. Recommend waiting for any operative procedure to the toes or foot until blood flow improved. Repeat duplex shows significant stenosis at right popliteal level. Is patient candidate for improving blood flow? May require bypass. Vascular consult would be beneficial. (2) Gangrene of toe of right foot: Code(s): I96 - Gangrene, not elsewhere classified Status: Acute Assessment and Plan: Unchanged and stable at this time. No further necrosis or signs of infection. Subjective Subjective Date/Time Seen: 03/21/20 09:11 No interval change Exam Const: General: No in distress or confusion Orientation/consciousness: oriented to person, oriented to place, oriented to time and No confusion HENMT: Head: normal to inspection, normocephalic and atraumatic Eyes: Conjunctivae: conjunctivae normal Sclera: sclerae normal Neck: Neck: supple and nontender Resp: Effort & Inspection: normal respiratory effort and no audible wheezes Cardio: Rate: regular rate Rhythm: regular rhythm Skin: Wounds: wounds noted ( right 4th and 5th toe, left hallux) Neuro: General: oriented to person, oriented to place, oriented to time and No confusion Extrem: Right upper extremity: normal to inspection Left upper extremity: normal to inspection Right lower extremity: ankle and foot; no edema Left lower extremity: ankle and foot Other: Dry gangrene small toe, 4th toe. Details: cyanosis, tenderness Location: of the dorsal foot and of another digit Location: the 4th digit, the 5th digit, at the distal phalanx and over the nailbed, dorsal forefoot. abnormal ROM of toe Details: pain with active ROM Location: of all toes, vascular exam Details: abnormal capillary refill Location: of all toes and cyanosis Location: of the 4th digit and of the 5th digit; dorsalis pedis pulse absent and posterior tibial pulse absent, tendon exam Details: active flexion abnormal Location: of all toes and active extension abnormal Location: of all toes and motor-sensory exam (strength 4/5 throughout . Light touch sensation absent throughout ) Details: two point discrimination abnormal Location: in all toes and light-touch abnormal Location: in all toes; no crepitus; no edema Left lower extremity: ankle Details: ROM (dorsiflexion -10, planter flexion 40, inversion 15, E version 5 ); no tenderness and no swelling and foot Details: tenderness ( hallux, toes, forefoot ) Location: of the great toe Location: at the distal phalanx and along the dorsal aspect, no edema, vascular exam Details: abnormal capillary refill Location: of all toes and coolness; dorsalis pedis pulse absent and posterior tivial pulse absent, motor-sensory exam (strength 4/5 . Light touch sensation not intact ) two point discrimination abnormal in all toes and light-touch abnormal in all toes and other ( [place] monofilament sensation absent midfoot through toes); no lacerations and no ecchymosis Psych: Affect: normal affect Objective Data Vital Signs Vital Signs: Vital Signs - 24 hr 03/20/20 09:25 03/20/20 10:00 03/20/20 12:00 Temperature 98.4 F Pulse Rate 72 72 77 Respiratory Rate 16 Blood Pressure 165/41 H Pulse Oximetry 99 03/20/20 14:00 03/20/20 16:00 03/20/20 18:00 Temperature 98.4 F 98.3 F Pulse Rate 73 69 72 Respiratory Rate 16 16 Blood Pressure 160/49 H 180/48 H Pulse Oximetry 98 10
--- NOTE | 2020-03-21 11:06 | PM.IMPN ---
Progress Note: A&P Assessment and Plan (1) Osteomyelitis: Qualifiers: Laterality: right Osteomyelitis location: foot Osteomyelitis type: other acute Qualified Code(s): M86.171 - Other acute osteomyelitis, right ankle and foot Code(s): M86.9 - Osteomyelitis, unspecified Status: Acute Assessment and Plan: As evidence by physical exam and x-ray of the foot. Placed on vancomycin and imipemem D # [address] Vallejo about ABX on dischrage Angioplasty of superior femoral artery 03/19 and partially occluded stent. Ortho following for probable later amputation but they are concerned blood flow, pt will need OPD vascular apt and OPD cardiology apt. Pt can be dischraged tomorrow. (2) Critical limb ischemia with history of revascularization of same extremity: Code(s): I99.8 - Other disorder of circulatory system; Z95.9 - Presence of cardiac and vascular implant and graft, unspecified Status: Acute Assessment and Plan: With his peripheral vascular disease and past history was placed on IV heparin and a be seen by Cardiology who took to physical laboratory assistant 03/19 and performed angioplasty of SFA where had partially occluded stent. Good flow was achieved per cardiology. Cardiology feels pt is safe for dischrage with vascular and orthopedic follow up. (3) Insulin dependent type 2 diabetes mellitus: Code(s): E11.9 - Type 2 diabetes mellitus without complications; Z79.4 - intermediate card tender (current) use of insulin Status: Acute Assessment and Plan: Continue the Lantus and sliding scale and hold on his oral hypoglycemics (4) Hypertension: Code(s): I10 - Essential (primary) hypertension Status: Acute Assessment and Plan: Continue Qasim and beta-mike and calcium channel mike (5) Chronic kidney disease (CKD) stage G3a/A2, moderately decreased glomerular filtration rate (GFR) between 45-59 mL/min/1.73 square meter and albuminuria creatinine ratio between 30-299 mg/g: Code(s): N18.3 - Chronic kidney disease, stage 3 (moderate) Status: Acute Assessment and Plan: Creat stable known CKD stage 3 (6) Coronary artery disease involving [place] coronary artery of [place] heart: Code(s): I25.10 - Atherosclerotic heart disease of [place] coronary artery without angina pectoris Status: Acute Assessment and Plan: Treated with beta-mike, statin, QASIM-inhibitor and aspirin Subjective Date/time seen: 03/21/20 11:06 Interval history: 59-year-old hypertensive type 2 diabetic with chronic renal failure stage 3 chronic anemia admitted with cellulitis and osteomyelitis of right foot. Chronic smoker. Underwent angioplasty of stented SFA 03/19. Orthopedics feel pt may require bypass. Vascular consult would be beneficial. Cardiology feels pt has dry gangrene of right 4th and 5th toes. Pt can be discharged with follow up with vascular surgery. Pt had recent Angiogram 11/10/2019- showing severe peripheral vascular disease with acute or subacute occlusion of the previously stented SFA. Treated with multiple balloon angioplasty and stent placement to the proximal portion with significant improvement of the flow. Review of Systems Review of Systems: All systems reviewed & are unremarkable except as noted in HPI and below Exam Narrative: Exam Narrative: Temp Pulse Resp BP Pulse Ox 36.2 C L 68 18 149/83 H 98 03/21/20 09:43 03/21/20 12:00 03/21/20 09:43 03/21/20 09:43 03/21/20 09:43 Generally chronically ill patient Lungs clear CV regular rate Abdomen soft nontender no masses bowel sounds normal active Extremities without edema distal pulses dorsalis pedis posterior tibial not felt Right foot the 4th and 5th phalange are necrotic Neuro alert with no focal deficits Psych depressed Objective Data Vital Signs V
[2020-03-21 11:32] LABS: Glucose Point of Care 129 (65-105)
--- NOTE | 2020-03-21 12:16 | PM.PNCARD ---
Progress Note: A&P Assessment and Plan (1) Peripheral vascular disease: Code(s): I73.9 - Peripheral vascular disease, unspecified Status: Acute Assessment and Plan: Patient with Right SFA stenting in Oct 2019 presents now with gangrene of the toes in the setting of non compliance and ongoing tobacco abuse He underwent angiogram, revealing severe stenosis of the mid SFA in 2 locations, underwent balloon angioplasty followed by drug coated balloon angioplasty, to prevent restenosis. He has good blood flow down to the foot. Clinically improving with resolving sensory deficits in the foot. i believe his flow is adequate for healing if surgery planning toe amputation. If no plan for surgery then he should be okay for discharge from cardiovascular standpoint with follow up with Dr Cardona in 1 week (2) Osteomyelitis: Qualifiers: Laterality: right Osteomyelitis location: foot Osteomyelitis type: other acute Qualified Code(s): M86.171 - Other acute osteomyelitis, right ankle and foot Code(s): M86.9 - Osteomyelitis, unspecified Status: Acute Assessment and Plan: Abx per primary team (3) Coronary artery disease involving [place] coronary artery of [place] heart: Code(s): I25.10 - Atherosclerotic heart disease of [place] coronary artery without angina pectoris Status: Acute Assessment and Plan: He has history of PCI per patient more then 5 years ago at [facility]. No chest pain. 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 Review of Systems Review of Systems: All systems reviewed & are unremarkable except as noted in HPI and below Constitutional: Constitutional: Denies fatigue and Denies headache(s) Eyes: Eyes: Denies blurry vision ENT: Reports Normal hearing present and Denies headache(s) Cardiovascular: Cardiovascular: Denies chest pain, Denies diaphoresis, Denies pedal edema, Denies leg edema, Denies lightheadedness, Denies palpitations and Denies dyspnea Respiratory: Respiratory: Denies cough and Denies dyspnea Gastrointestinal: Gastrointestinal: Denies abdominal pain Musculoskeletal: Musculoskeletal: Denies back pain Neurologic: Reports Normal hearing present and Denies headache(s) Psychiatric: Psychiatric: Denies anxiety Endocrine: Endocrine: Denies fatigue and Denies palpitations Exam Const: General: no acute distress Eyes: Sclera: sclerae normal Neck: Neck: no JVD Carotids: no bruits Resp: Effort & Inspection: normal respiratory effort Auscultation: clear to auscultation bilaterally Cardio: Rate: regular rate and not tachycardic Rhythm: regular rhythm Heart sounds: no gallops, no murmurs and no rubs Skin: General skin exam: normal color Neuro: Cranial nerves: Yes Normal hearing present Speech: normal speech Extrem: Other: gangrene of the 4th and 5th toes of the right foot, surrounding erythema noted Psych: Affect: normal affect Objective Data Vital Signs Vital Signs: Vital Signs - 24 hr 03/20/20 14:00 03/20/20 16:00 03/20/20 18:00 Temperature 36.9 C 36.8 C Pulse Rate 73 69 72 Respiratory Rate 16 16 Blood Pressure 160/49 H 180/48 H Pulse Oximetry 98 100 03/20/20 20:00 03/20/20 21:47 03/21/20 00:00 Temperature 36.7 C Pulse Rate 72 73 79 Respiratory Rate 20 Blood Pressure 173/56 H Pulse Oximetry 99 03/21/20 01:49 03/21/20 04:00 03/21/20 04:23 Temperature 36.9 C Pulse Rate 69 75 70 Respiratory Rate 16 16 Blood Pressure 156/46 H 147/50 H P
[2020-03-21 15:59] LABS: Vancomycin Trough 21.1 ug/mL (10.0-20.0)
[2020-03-21 16:12] LABS: Glucose Point of Care 199 (65-105)
[2020-03-21] MEDS: INSULIN GLARGINE (*BKC) 100 UNITS/ML 50 UNITS SUB-Q (16:23)
[2020-03-21] MEDS: lisinopriL 10 MG TABLET PO (16:23)
[2020-03-21] MEDS: ENOXAPARIN 40 MG/0.4 ML SYRINGE SUB-Q (20:34)
[2020-03-21] MEDS: PRAVASTATIN SODIUM 20 MG TABLET 80 MG PO (20:35)
[2020-03-21 21:42] LABS: Glucose Point of Care 187 (65-105)
[2020-03-21 23:28] LABS: Glucose Point of Care 111 (65-105)
[2020-03-22] VITALS (13 sets, daily range): BP systolic 145–168; BP diastolic 42–79; PULSE 46–76; RESP 16–21; TEMP 36.1–36.8; O2SAT 98–100
[2020-03-22 04:15] LABS: Glucose Point of Care 61 (65-105)
[2020-03-22 04:37] LABS: Glucose Point of Care 76 (65-105)
[2020-03-22 05:12] LABS: Glucose Point of Care 110 (65-105)
[2020-03-22 07:35] LABS: Glucose Point of Care 100 (65-105)
[2020-03-22 08:42] LABS: Blood Urea Nitrogen 16 mg/dL (9-20); Calcium 8.5 mg/dL (8.4-10.2); Carbon Dioxide 27 mmol/L (22-30); Chloride 105 mmol/L (98-107); Estimated CRCL calculation 73 ml/min; Estimated Glomerular Filt Rate > 60; Glucose 132 mg/dL (75-110); Potassium 3.8 mmol/L (3.4-5.0); Sodium 136 mmol/L (137-145)
[2020-03-22] MEDS: CYANOCOBALAMIN 500 MCG TABLET 2500 MCG PO (09:27)
[2020-03-22] MEDS: ASPIRIN 81 MG CHEWABLE TABLET 162 MG PO (09:27)
[2020-03-22] MEDS: CLOPIDOGREL BISULFATE 75 MG TABLET PO (09:27)
[2020-03-22] MEDS: NYSTATIN 100,000 UNITS/ML SUSP 5 ML ORAL.SUSP PO ×4 (09:28→20:18)
[2020-03-22] MEDS: METOPROLOL SUCCINATE EXT REL 25 MG TABCR PO (09:29)
--- NOTE | 2020-03-22 11:28 | PM.IMPN ---
Progress Note: A&P Assessment and Plan (1) Osteomyelitis: Qualifiers: Laterality: right Osteomyelitis location: foot Osteomyelitis type: other acute Qualified Code(s): M86.171 - Other acute osteomyelitis, right ankle and foot Code(s): M86.9 - Osteomyelitis, unspecified Status: Acute Assessment and Plan: As evidence by physical exam and x-ray of the foot. Placed on vancomycin and imipemem D # [address] Vallejo about ABX on dischrage Angioplasty of superior femoral artery 03/19 and partially occluded stent. Ortho following for probable later amputation but they are concerned blood flow, pt will need OPD vascular apt and OPD cardiology apt. Pt can be dischraged tomorrow. (2) Critical limb ischemia with history of revascularization of same extremity: Code(s): I99.8 - Other disorder of circulatory system; Z95.9 - Presence of cardiac and vascular implant and graft, unspecified Status: Acute Assessment and Plan: With his peripheral vascular disease and past history was placed on IV heparin and a be seen by Cardiology who took to wheelabrator operator 03/19 and performed angioplasty of SFA where had partially occluded stent. Good flow was achieved per cardiology. Cardiology feels pt is safe for dischrage with vascular and orthopedic follow up. 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 Status: Acute Assessment and Plan: Continue the Lantus and sliding scale and hold on his oral hypoglycemics (4) Hypertension: Code(s): I10 - Essential (primary) hypertension Status: Acute Assessment and Plan: Continue Qasim and beta-mike and calcium channel mike (5) Chronic kidney disease (CKD) stage G3a/A2, moderately decreased glomerular filtration rate (GFR) between 45-59 mL/min/1.73 square meter and albuminuria creatinine ratio between 30-299 mg/g: Code(s): N18.3 - Chronic kidney disease, stage 3 (moderate) Status: Acute Assessment and Plan: Creat stable known CKD stage 3 (6) Coronary artery disease involving [place] coronary artery of [place] heart: Code(s): I25.10 - Atherosclerotic heart disease of [place] coronary artery without angina pectoris Status: Acute Assessment and Plan: Treated with beta-mike, statin, QASIM-inhibitor and aspirin Subjective Date/time seen: 03/22/20 11:28 Interval history: 59-year-old hypertensive type 2 diabetic with chronic renal failure stage 3 chronic anemia admitted with cellulitis and osteomyelitis of right foot. Chronic smoker. Underwent angioplasty of stented SFA 03/19. Orthopedics feel pt may require bypass. Vascular consult would be beneficial. Please contact vascular clinic on monday, pt needs outpatient appointment with vascular surgery. Cardiology feels pt has dry gangrene of right 4th and 5th toes. Pt can be discharged with follow up with vascular surgery. Pt had recent Angiogram 11/10/2019- showing severe peripheral vascular disease with acute or subacute occlusion of the previously stented SFA. Treated with multiple balloon angioplasty and stent placement to the proximal portion with significant improvement of the flow. Review of Systems Review of Systems: All systems reviewed & are unremarkable except as noted in HPI and below Exam Narrative: Exam Narrative: Temp Pulse Resp BP Pulse Ox 36.5 C 63 18 150/59 H 98 03/22/20 13:59 03/22/20 13:59 03/22/20 13:59 03/22/20 13:59 03/22/20 13:59 Temp Pulse Resp BP Pulse Ox 36.2 C L 68 18 149/83 H 98 03/21/20 09:43 03/21/20 12:00 03/21/20 09:43 03/21/20 09:43
[2020-03-22 11:41] LABS: Glucose Point of Care 114 (65-105)
[2020-03-22] MEDS: lisinopriL 10 MG TABLET PO (16:28)
[2020-03-22] MEDS: INSULIN GLARGINE (*BKC) 100 UNITS/ML 50 UNITS SUB-Q (16:30)
[2020-03-22 17:30] LABS: Glucose Point of Care 207 (65-105)
--- NOTE | 2020-03-22 18:32 | WPDINFPN2 ---
Progress Note: A&P Additional Plan pt was seen and consult dictated. Thank you. Subjective Date/time seen: 03/22/20 18:32 Objective Data Vital Signs Vital Signs: Vital Signs - 24 hr 03/21/20 20:00 03/21/20 21:57 03/22/20 00:00 Temperature 36.7 C Pulse Rate 71 66 57 L Respiratory Rate 16 Blood Pressure 172/56 H Pulse Oximetry 98 03/22/20 02:00 03/22/20 04:00 03/22/20 06:00 Temperature 36.6 C 36.6 C Pulse Rate 62 61 66 Respiratory Rate 16 16 Blood Pressure 155/51 H 145/42 H Pulse Oximetry 98 98 03/22/20 08:00 03/22/20 09:20 03/22/20 09:29 Temperature 36.2 C L Pulse Rate 54 L 71 76 Respiratory Rate 16 Blood Pressure 168/79 H Pulse Oximetry 98 03/22/20 12:00 03/22/20 13:59 03/22/20 16:00 Temperature 36.5 C Pulse Rate 56 L 63 46 L Respiratory Rate 18 Blood Pressure 150/59 H Pulse Oximetry 98 03/22/20 17:11 Temperature 36.1 C L Pulse Rate 65 Respiratory Rate 16 Blood Pressure 147/53 H Pulse Oximetry 100 Intake/Output Intake/Output: Intake & Output 03/19/20 03/20/20 03/21/20 03/22/20 23:59 23:59 23:59 23:59 Intake Total 890 2030 1960 1915 Output Total 550 2450 975 950 Balance 340 -420 985 965 Meds/Results Medications: Active Medications Generic Name Dose Route Start Last Admin Trade Name Freq PRN Reason Stop Dose Admin Acetaminophen 650 mg 03/17/20 20:40 Tylenol Tablet PO Q4H PRN Mild Pain (1-3) or Fever Albuterol 2 puff 03/18/20 01:56 Proventil Hfa INHALATION Q4H PRN Shortness Of Breath Aspirin 162 mg 03/18/20 09:00 03/22/20 09:27 Aspirin Chewable PO 162 mg DAILY RHONDA Administration Clopidogrel Bisulfate 75 mg 03/18/20 09:00 03/22/20 09:27 Plavix PO 75 mg QAM RHONDA Administration Cyanocobalamin 2,500 mcg 03/18/20 09:00 03/22/20 09:27 Vitamin B-12 Tab PO 2,500 mcg DAILY RHONDA Administration Dextrose 12.5 gm 03/18/20 01:47 Dextrose 50% Syringe IV PUSH PRN PRN Hypoglycemia Protocol Docusate Sodium 100 mg 03/20/20 13:37 Colace Capsule PO Q12H PRN Constipation Enoxaparin Sodium 40 mg 03/20/20 21:00 03/21/20 20:34 Lovenox SUB-Q 40 mg HS RHONDA Administration Glucagon 1 mg 03/18/20 01:47 Glucagon For Inj IM PRN PRN Hypoglycemia Protocol Glucose 15 gm 03/18/20 01:47 Glutose 15 PO PRN PRN Hypoglycemia Protocol Dextrose 1,000 mls @ 100 mls/hr 03/18/20 01:47 Dextrose 5% 1,000 Ml IVPB PRN PRN Hypoglycemia Protocol Vancomycin HCl 1,250 mg in 250 mls @ 166.667 mls/hr 03/21/20 18:00 03/22/20 17:43 Vancomycin 1,250 Mg/D5w 250 Ml IVPB 166.7 mls/hr Q12H RHONDA Administration Insulin Aspart 3 - 6 units 03/18/20 08:00 03/22/20 12:27 Novolog SUB-Q Not Given TIDWM RHONDA Protocol Insulin Glargine 50 units 03/18/20 17:00 03/22/20 16:30 Lantus SUB-Q 50 units 1700 RHONDA Administration Lisinopril 10 mg 03/19/20 17:00 03/22/20 16:28 Prinivil PO 10 mg DAILY@1700 RHONDA Administration Magnesium Oxide 400 mg 03/18/20 01:44 Mag-Ox PO BID PRN constipation Metoprolol Succinate 25 mg 03/18/20 09:00 03/22/20 09:29 Toprol Xl PO 25 mg DAILY RHONDA Administration Nicotine Polacrilex 4 mg 03/18/20 01:45 Nicorette 4 Mg Gum BUCCAL PRN PRN Nicotine Cravings Nitroglycerin 0.4 mg 03/18/20 01:48 Nitrostat Subl 0.4 Mg (1/150) SUBLINGUAL Q5M PRN Chest Pain Nystatin 5 ml 03/18/20 13:00 03/22/20 16:28 Nystatin 100,000 Units/Ml Susp PO 5 ml QID RHONDA Administration Oxycodone HCl 10 mg 03/21/20 11:45 03/22/20 09:27 Oxycontin Sr 12hr PO 10 mg Q12HR RHONDA Administration Oxycodone/Acetaminophen 1 tablet 03/18/20 03:09 03/22/20 13:35 Percocet 5-325 Mg PO 1 tablet Q4H PRN Administration Pain Rated 7-10 Polyethylene Glycol 17 gm 03/20/20 13:37 Miralax PO QAM PRN C
[2020-03-22] MEDS: INSULIN ASPART (*BKC) 100 UNITS/ML SUB-Q (18:50)
[2020-03-22 18:53] LABS: Glucose Point of Care 264 (65-105)
[2020-03-22] MEDS: ENOXAPARIN 40 MG/0.4 ML SYRINGE SUB-Q (20:18)
[2020-03-22] MEDS: PRAVASTATIN SODIUM 20 MG TABLET 80 MG PO (20:20)
[2020-03-22 23:12] LABS: Glucose Point of Care 161 (65-105)
[2020-03-23] VITALS (12 sets, daily range): BP systolic 141–171; BP diastolic 41–66; PULSE 55–67; RESP 12–20; TEMP 36.2–36.7; O2SAT 98–100
--- NOTE | 2020-03-23 02:06 | CONS_ITS ---
DATE OF CONSULTATION: 03/22/2020 REQUESTING PHYSICIAN: Dr. Rosie Alaniz. REASON FOR CONSULTATION: Antibiotic management for osteomyelitis of right foot 5th digit. HISTORY OF PRESENT ILLNESS: This is a 59-year-old male with significant past medical history for peripheral vascular disease, type 2 diabetes, obesity, and chronic renal insufficiency, presenting to the emergency room with increasing right foot pain and with signs of dry gangrene of the 4th and 5th digit. The patient stated that his pain has been going on for the past 2 weeks with pain getting worse with no relief. No improvement of the necrosis of the digits despite being on 2 weeks of oral antibiotic therapy. The patient has had previous interventional angioplasty by Dr. Adame with stent placement. On admission, the x-rays showing signs of osteomyelitis on the 4th and 5th digit area. Currently, the patient is being treated on vancomycin. PAST MEDICAL HISTORY: Significant for type 2 diabetes, chronic renal insufficiency, ADHD, gastroesophageal reflux disease, hypertension, hyperlipidemia, peripheral vascular disease, myocardial infarction, peripheral artery disease, status post revascularization. PAST SURGICAL HISTORY: Cardiac catheterization, left-sided carotid endarterectomy, angiography, and stenting of the left lower extremity. FAMILY HISTORY: Positive for acute myocardial infarction, COPD, cerebrovascular accident. SOCIAL HISTORY: Every day smoker, 10 cigarettes per day x44 years. Smokes marijuana for pain relief. No alcohol or substance abuse. MEDICATIONS: At home: Metoprolol, albuterol, aspirin, lisinopril, furosemide, Plavix, and nitroglycerin. ALLERGIES: PENICILLIN, ANAPHYLACTIC SHOCK. AMOXICILLIN, SHORTNESS OF BREATH. REVIEW OF SYSTEMS: No headache. No photophobia. No conjunctival injection. Nonicteric sclera. No earache. No tinnitus. No sinus congestion. No sore throat. No dysphagia. No odynophagia. No neck pain. No shortness of breath. No orthopnea. No paroxysmal nocturnal dyspnea. No chest pain. No hemoptysis. No palpitation. No dizziness. No nausea. No vomiting. No hematemesis. No hematochezia. No diarrhea. No melena. No dysuria. No hematuria. No scrotal edema. No penile discharge. Trace lower extremity edema. No skin rash. No petechia, no hemorrhages, no purpura. No epistaxis or gum bleeding. No lymphadenopathy. No focal neurological deficit. No seizure activity. No syncope. Positive induration and necrosis at the distal aspect of the 4th and 5th digit of the right foot, progressive over 2 weeks, associated significant pain. MEDICATIONS IN THE HOSPITAL: Currently on vancomycin day #3, aspirin, Plavix, pravastatin, lisinopril, insulin, oxycodone. PHYSICAL EXAMINATION: VITAL SIGNS: Temperature is 36, pulse rate of 65, respiratory rate of 16, blood pressure of 147/63, saturating 100%. HEENT: Head is normocephalic, atraumatic. NECK: Supple. No JVD. No lymphadenopathy. LUNGS: Clear. CARDIOVASCULAR SYSTEM: Positive S1, S2. No S3, S4. No murmur. ABDOMEN: Positive bowel sounds. Nontender. No organomegaly. No mass. EXTREMITIES: No edema. SKIN: There is no rash. Right foot 4th and 5th digit distal aspect signs of dry gangrene. Very tender to touch with surrounding erythema. No [place] drainage. Dorsalis pedis pulses are very difficult to palpate. NEUROLOGICAL: He is alert, awake, oriented. No focal deficit. LABORATORY EXAMINATION: X-ray of the foot showed fifth toe erosion, probably osteomyelitis with overlying ulceration. WBC count is 11, with a hemoglobin of 8.9, hematocrit of 27, platelet of 216, segmental of 61%. Sodium is 136, potassium of 3.8, chloride of 105, bicarb of 27, BUN 16, creatinine of 1.2, alkal
[2020-03-23 04:43] LABS: Glucose Point of Care 79 (65-105)
[2020-03-23 05:34] LABS: Estimated CRCL calculation 73 ml/min; Estimated Glomerular Filt Rate > 60
[2020-03-23 06:01] LABS: Vancomycin Trough 23.5 ug/mL (10.0-20.0)
[2020-03-23 07:49] LABS: Glucose Point of Care 123 (65-105)
[2020-03-23] MEDS: ASPIRIN 81 MG CHEWABLE TABLET 162 MG PO (08:41)
[2020-03-23] MEDS: CLOPIDOGREL BISULFATE 75 MG TABLET PO (08:42)
[2020-03-23] MEDS: NYSTATIN 100,000 UNITS/ML SUSP 5 ML ORAL.SUSP PO ×4 (08:42→20:32)
[2020-03-23] MEDS: METOPROLOL SUCCINATE EXT REL 25 MG TABCR PO (08:42)
[2020-03-23] MEDS: CYANOCOBALAMIN 500 MCG TABLET 2500 MCG PO (08:42)
[2020-03-23 11:23] LABS: Glucose Point of Care 121 (65-105)
--- NOTE | 2020-03-23 12:46 | PM.IMPN ---
Progress Note: A&P Assessment and Plan (1) Osteomyelitis: Qualifiers: Laterality: right Osteomyelitis location: foot Osteomyelitis type: other acute Qualified Code(s): M86.171 - Other acute osteomyelitis, right ankle and foot Code(s): M86.9 - Osteomyelitis, unspecified Status: Acute Assessment and Plan: As evidence by physical exam and x-ray of the foot. Placed on vancomycin and imipemem D # [address] Vallejo about ABX on dischrage Angioplasty of superior femoral artery 03/19 and partially occluded stent. Ortho following for probable later amputation but they are concerned blood flow, pt will need OPD vascular apt and OPD cardiology apt. Pt can be dischraged tomorrow. 03/23/2020 Pt had recent Angiogram 11/10/2019- showing severe peripheral vascular disease with acute or subacute occlusion of the previously stented SFA. Treated with multiple balloon angioplasty and stent placement to the proximal portion with significant improvement of the flow. howeaver patient is seen by an ortho and does not recommend any surgical intervention and ID is recommending to discharge patient home on Vancomycin IV and oral fluoroquinolone for 6 weeks, culture so far no growth, respiratory care faculty is working on the plan and possibly discharge patient tomorrow. (2) Critical limb ischemia with history of revascularization of same extremity: Code(s): I99.8 - Other disorder of circulatory system; Z95.9 - Presence of cardiac and vascular implant and graft, unspecified Status: Acute Assessment and Plan: With his peripheral vascular disease and past history was placed on IV heparin and a be seen by Cardiology who took to crime lab analyst 03/19 and performed angioplasty of SFA where had partially occluded stent. Good flow was achieved per cardiology. Cardiology feels pt is safe for dischrage with vascular and orthopedic follow up. 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) use of insulin Status: Acute Assessment and Plan: Continue the Lantus and sliding scale and hold on his oral hypoglycemics (4) Hypertension: Code(s): I10 - Essential (primary) hypertension Status: Acute Assessment and Plan: Continue Qasim and beta-mike and calcium channel mike (5) Chronic kidney disease (CKD) stage G3a/A2, moderately decreased glomerular filtration rate (GFR) between 45-59 mL/min/1.73 square meter and albuminuria creatinine ratio between 30-299 mg/g: Code(s): N18.3 - Chronic kidney disease, stage 3 (moderate) Status: Acute Assessment and Plan: Creat stable known CKD stage 3 (6) Coronary artery disease involving [place] coronary artery of [place] and [place] heart: Code(s): I25.10 - Atherosclerotic heart disease of [place] coronary artery without angina pectoris Status: Acute Assessment and Plan: Treated with beta-mike, statin, QASIM-inhibitor and aspirin Subjective Date/time seen: 03/23/20 12:46 Interval history: 59-year-old hypertensive type 2 diabetic with chronic renal failure stage 3 chronic anemia admitted with cellulitis and osteomyelitis of right foot. Chronic smoker. Underwent angioplasty of stented SFA 03/19. Orthopedics feel pt may require bypass. Vascular consult would be beneficial. Please contact vascular clinic on monday, pt needs outpatient appointment with vascular surgery. Cardiology feels pt has dry gangrene of right 4th and 5th toes. Pt can be discharged with follow up with vascular surgery. Pt had recent Angiogram 11/10/2019- showing severe peripheral vascular disease with acute or subacute occlusion of the previously stented SFA. Treated with multiple balloon angioplasty and stent placement to the proximal portion with significant improvement of the flow. tayo patient is seen by an ortho and does not recommend any surgical intervention and ID is recommen
--- NOTE | 2020-03-23 14:49 | PM.PNCARD ---
Progress Note: A&P Assessment and Plan (1) Peripheral vascular disease: Code(s): I73.9 - Peripheral vascular disease, unspecified Status: Acute Assessment and Plan: Patient with Right SFA stenting in Oct 2019 presents now with gangrene of the toes in the setting of non compliance and ongoing tobacco abuse He underwent angiogram, revealing severe stenosis of the mid SFA in 2 locations, underwent balloon angioplasty followed by drug coated balloon angioplasty, to prevent restenosis. He has good blood flow down to the foot. Clinically improving with resolving sensory deficits in the foot. i believe his flow is adequate for healing if surgery planning toe amputation. If no plan for surgery then he should be okay for discharge from cardiovascular standpoint with follow up with me in 1 week (2) Osteomyelitis: Qualifiers: Laterality: right Osteomyelitis location: foot Osteomyelitis type: other acute Qualified Code(s): M86.171 - Other acute osteomyelitis, right ankle and foot Code(s): M86.9 - Osteomyelitis, unspecified Status: Acute Assessment and Plan: Abx per primary team (3) Coronary artery disease involving [place] coronary artery of [place] heart: Code(s): I25.10 - Atherosclerotic heart disease of [place] coronary artery without angina pectoris Status: Acute Assessment and Plan: He has history of PCI per patient more then 5 years ago at [facility]. No chest pain. Check EKG Continue ASA, Plavix and statin (4) Insulin dependent type 2 diabetes mellitus: Code(s): E11.9 - Type 2 diabetes mellitus without complications; Z79.4 - assisted (current) use of insulin Status: Acute (5) Tobacco abuse: Code(s): Z72.0 - Tobacco use Status: Acute Assessment and Plan: Smoking cessation counseling Subjective Date/time seen: 03/23/20 14:49 Feels better today, still with occasional pain in the right toes, was able to walk, no calf pain, no bleed no hematoma, no significant shortness of breath. Exam Const: General: no acute distress Eyes: Sclera: sclerae normal Neck: Neck: no JVD Carotids: no bruits Resp: Effort & Inspection: normal respiratory effort Auscultation: clear to auscultation bilaterally Cardio: Rate: regular rate and not tachycardic Rhythm: regular rhythm Heart sounds: no gallops, no murmurs and no rubs Skin: General skin exam: normal color Neuro: Cranial nerves: Yes Normal hearing present Speech: normal speech Extrem: Other: gangrene of the 4th and 5th toes of the right foot, surrounding erythema noted Psych: Affect: normal affect Objective Data Vital Signs Vital Signs: Vital Signs - 24 hr 03/22/20 16:00 03/22/20 17:11 03/22/20 20:00 Temperature 36.1 C L Pulse Rate 46 L 65 58 L Respiratory Rate 16 Blood Pressure 147/53 H Pulse Oximetry 100 03/22/20 22:00 03/23/20 00:00 03/23/20 02:00 Temperature 36.8 C 36.2 C L Pulse Rate 64 66 62 Respiratory Rate 21 H 20 Blood Pressure 152/62 H 170/46 H Pulse Oximetry 100 98 03/23/20 04:00 03/23/20 06:00 03/23/20 08:00 Temperature 36.2 C L Pulse Rate 55 L 67 64 Respiratory Rate 20 Blood Pressure 141/41 H Pulse Oximetry 99 03/23/20 10:00 Temperature 36.7 C Pulse Rate 61 Respiratory Rate 12 Blood Pressure 162/66 H Pulse Oximetry 99 Intake/Output Intake/Output: Intake & Output 03/20/20 03/21/20 03/22/20 03/23/20 23:59 23:59 23:59 23:59 Intake Total 2030 1960 2165 990 Output Total 2450 975 950 900 Balance -927 373 5861 90 Meds/Results Medications: Active Medications Generic Name Dose Route Start Last Admin Trade Name Freq PRN Reason Stop Dose Admin Acetaminophen 650 mg 03/17/20 20:40 Tylenol Tablet PO Q4H PRN Mild Pain (1-3) or Fever Albuterol 2 puff 03/18/20 01:56 Proventil Hfa INHALATION Q4H PRN Shortness Of Breath Aspirin 162 mg 03/18/20 09:00 05
--- NOTE | 2020-03-23 15:10 | WPDINFPN2 ---
Progress Note: A&P Assessment and Plan (1) Osteomyelitis: Qualifiers: Laterality: right Osteomyelitis location: foot Osteomyelitis type: other acute Qualified Code(s): M86.171 - Other acute osteomyelitis, right ankle and foot Code(s): M86.9 - Osteomyelitis, unspecified Status: Acute Assessment and Plan: 1. OM of R 4th and 5th toes. Unable to tolerate MRI. No sepsis 2. ASPVD 3. Tobacco 4. PCN allergy --> anaphylaxis, also TMP 5. Gangrene of toes, causing #1 REC Vanc and oral flouroquinolone through 04/27/20 (6 weeks after treatment onset). Dr. Quintanilla and Dr. Adame following also. CT of R foot, can be done as outpatient. Subjective Date/time seen: 03/23/20 15:10 Interval history: poor sensation as before. No subjective fever. Pain with weight bearing Exam Narrative: Exam Narrative: afebrile Const: General: no acute distress Resp: Effort & Inspection: normal respiratory effort Auscultation: clear to auscultation bilaterally Cardio: Rate: regular rate Rhythm: regular rhythm Heart sounds: no gallops and no murmurs GI: Inspection: non-distended GI Palp: Yes Soft to palpation and No Tenderness to palpation present (GI) Extrem: Other: r 4th toe gangrene, also Medial 5th toe. + tenderness both toes. No foot erythema Objective Data Vital Signs Vital Signs: Vital Signs - 24 hr 03/22/20 16:00 03/22/20 17:11 03/22/20 20:00 Temperature 36.1 C L Pulse Rate 46 L 65 58 L Respiratory Rate 16 Blood Pressure 147/53 H Pulse Oximetry 100 03/22/20 22:00 03/23/20 00:00 03/23/20 02:00 Temperature 36.8 C 36.2 C L Pulse Rate 64 66 62 Respiratory Rate 21 H 20 Blood Pressure 152/62 H 170/46 H Pulse Oximetry 100 98 03/23/20 04:00 03/23/20 06:00 03/23/20 08:00 Temperature 36.2 C L Pulse Rate 55 L 67 64 Respiratory Rate 20 Blood Pressure 141/41 H Pulse Oximetry 99 03/23/20 10:00 03/23/20 14:00 Temperature 36.7 C 36.2 C L Pulse Rate 61 57 L Respiratory Rate 12 16 Blood Pressure 162/66 H 170/62 H Pulse Oximetry 99 100 Intake/Output Intake/Output: Intake & Output 03/20/20 03/21/20 03/22/20 03/23/20 23:59 23:59 23:59 23:59 Intake Total 2029 1960 2165 990 Output Total 2450 975 950 900 Balance -249 777 9547 90 Meds/Results Medications: Active Medications Generic Name Dose Route Start Last Admin Trade Name Freq PRN Reason Stop Dose Admin Acetaminophen 650 mg 03/17/20 20:40 Tylenol Tablet PO Q4H PRN Mild Pain (1-3) or Fever Albuterol 2 puff 03/18/20 01:56 Proventil Hfa INHALATION Q4H PRN Shortness Of Breath Aspirin 162 mg 03/18/20 09:00 03/23/20 08:41 Aspirin Chewable PO 162 mg DAILY RHONDA Administration Clopidogrel Bisulfate 75 mg 03/18/20 09:00 03/23/20 08:42 Plavix PO 75 mg QAM RHONDA Administration Cyanocobalamin 2,500 mcg 03/18/20 09:00 03/23/20 08:42 Vitamin B-12 Tab PO 2,500 mcg DAILY RHONDA Administration Dextrose 12.5 gm 03/18/20 01:47 Dextrose 50% Syringe IV PUSH PRN PRN Hypoglycemia Protocol Docusate Sodium 100 mg 03/20/20 13:37 Colace Capsule PO Q12H PRN Constipation Enoxaparin Sodium 40 mg 03/20/20 21:00 03/22/20 20:18 Lovenox SUB-Q 40 mg HS RHONDA Administration Glucagon 1 mg 03/18/20 01:47 Glucagon For Inj IM PRN PRN Hypoglycemia Protocol Glucose 15 gm 03/18/20 01:47 Glutose 15 PO PRN PRN Hypoglycemia Protocol Dextrose 1,000 mls @ 100 mls/hr 03/18/20 01:47 Dextrose 5% 1,000 Ml IVPB PRN PRN Hypoglycemia Protocol Vancomycin HCl 1,250 mg in 250 mls @ 166.667 mls/hr 03/21/20 18:00 03/23/20 06:31 Vancomycin 1,250 Mg/D5w 250 Ml IVPB 166 mls/hr Q12H RHONDA Infusion Insulin Aspart 3 - 6 units 03/18/20 08:00 03/23/20 11:31 Novolog SUB-Q Not Given TIDWM RHONDA Protocol Insulin Glargine 50 units 03/18/20 17:00 03/22/20 16:30 Lantus
[2020-03-23] MEDS: lisinopriL 10 MG TABLET PO (16:58)
[2020-03-23 17:03] LABS: Glucose Point of Care 167 (65-105)
[2020-03-23] MEDS: INSULIN GLARGINE (*BKC) 100 UNITS/ML 50 UNITS SUB-Q (17:06)
[2020-03-23] MEDS: PRAVASTATIN SODIUM 20 MG TABLET 80 MG PO (20:32)
[2020-03-23] MEDS: ENOXAPARIN 40 MG/0.4 ML SYRINGE SUB-Q (20:32)
[2020-03-24] VITALS (7 sets, daily range): BP systolic 137–179; BP diastolic 32–65; PULSE 59–69; RESP 15–20; TEMP 36.1–36.8; O2SAT 98
[2020-03-24 00:07] LABS: Glucose Point of Care 170 (65-105)
[2020-03-24 01:27] LABS: Glucose Point of Care 56 (65-105)
[2020-03-24 05:55] LABS: Vancomycin Random 13.7 ug/mL (10-20)
[2020-03-24 08:03] LABS: Glucose Point of Care 99 (65-105)
[2020-03-24] MEDS: NYSTATIN 100,000 UNITS/ML SUSP 5 ML ORAL.SUSP PO ×2 (08:42→21:16)
[2020-03-24] MEDS: METOPROLOL SUCCINATE EXT REL 25 MG TABCR PO (08:42)
[2020-03-24] MEDS: ASPIRIN 81 MG CHEWABLE TABLET 162 MG PO (08:42)
[2020-03-24] MEDS: CYANOCOBALAMIN 500 MCG TABLET 2500 MCG PO (08:42)
[2020-03-24] MEDS: CLOPIDOGREL BISULFATE 75 MG TABLET PO (08:42)
[2020-03-24] MEDS: MAGNESIUM OXIDE 400 MG TABLET PO (08:42)
--- NOTE | 2020-03-24 10:34 | PM.PNORT ---
Progress Note: A&P Assessment and Plan (1) Gangrene of toe of right foot: Code(s): I96 - Gangrene, not elsewhere classified Status: Acute Assessment and Plan: Right foot 4th and 5th toe dry gangrene with peripheral arterial insufficiency. Patient with history of noncompliance and tobacco use. Discussed options with the patient today in depth. Attempt at salvage of distal extremity tenuous given noncompliance and tobacco use, poor arterial flow. Long discussion of the risks, benefits and alternatives. Patient would absolutely have to stop use of nicotine during the postoperative period. Patient is not sure he wants to adhere to those restrictions or proceed with that. We discussed other surgical option with higher amputation level including below-knee amputation. Patient has refused that option at this time. At this point his gangrene appears to be stable. There is less acute appearance to the toes with maturing of the necrotic cap. He is stable to be discharged with expectant observation for his toes until he decides on definitive treatment. Recommend use a postoperative shoe for protected weight-bearing. Betadine ointment to the toes. Continue time for his gangrene to declare itself. (2) Peripheral arterial disease: Code(s): I73.9 - Peripheral vascular disease, unspecified Status: Acute Subjective Subjective Date/Time Seen: 03/24/20 10:34 No new complaints. Bilateral forefoot and toe pain slightly worse on the right. Patient states slightly increased over the past Day or 2. Review of Systems Constitutional: Constitutional: Denies fever(s) Eyes: Eyes: Denies blurry vision ENT: Reports Normal hearing present Cardiovascular: Cardiovascular: Denies chest pain and Denies dyspnea Respiratory: Respiratory: Denies dyspnea and Denies wheezing Gastrointestinal: Gastrointestinal: Denies abdominal pain Genitourinary: Genitourinary: Denies urinary urgency Musculoskeletal: Musculoskeletal: Reports as per HPI and Reports numbness ( Bilateral feet) Integumentary/Breasts: Skin/Breast: Denies changing lesions and Reports sores ( right toes) Neurologic: Reports Normal hearing present, Denies behavioral changes, Denies confusion, Reports numbness ( lower extremities) and Denies convulsions Psychiatric: Psychiatric: Denies behavioral changes, Denies confusion and Denies hallucinations Endocrine: Endocrine: Denies heat intolerance Hematologic/Lymphatic: Hematologic/Lymphatic: Denies easy bleeding Allergic/Immunologic: Allergic/Immunologic: Denies wheezing Exam Const: General: healthy appearing; No in distress or confusion Orientation/consciousness: patient oriented x3 and No confusion HENMT: Head: normal to inspection, normocephalic and atraumatic Eyes: Conjunctivae: conjunctivae normal Sclera: sclerae normal Resp: Effort & Inspection: normal respiratory effort and no audible wheezes Neuro: General: patient oriented x3 and No confusion Extrem: Other: Right upper extremity: normal to inspection Left upper extremity: normal to inspection Right lower extremity: ankle and foot; no edema. Other: Dry gangrene small toe, 4th toe. Details: cyanosis, tenderness Location: of the dorsal foot and of another digit Location: the 4th digit, the 5th digit, at the distal phalanx and over the nailbed, dorsal forefoot. abnormal ROM of toe Details: pain with active ROM Location: of all toes, vascular exam Details: abnormal capillary refill Location: of all toes and cyanosis Location: of the 4th digit and of the 5th digit; dorsalis pedis pulse absent and posterior tibial pulse absent, tendon exam Details: active flexion abnormal Location: of all toes and active extension abnormal Location: of all toes and motor-sensory exam (strength 4/5 throughout . Light touch sensation absent throughout ) Details: two point discrimination abnormal Location: in all toes and light-touch abnormal Location: in all toes; no crep
[2020-03-24 11:41] LABS: Glucose Point of Care 123 (65-105)
--- NOTE | 2020-03-24 11:48 | PM.IMPN ---
Progress Note: A&P Assessment and Plan (1) Osteomyelitis: Qualifiers: Laterality: right Osteomyelitis location: foot Osteomyelitis type: other acute Qualified Code(s): M86.171 - Other acute osteomyelitis, right ankle and foot Code(s): M86.9 - Osteomyelitis, unspecified Status: Acute Assessment and Plan: As evidence by physical exam and x-ray of the foot. Placed on vancomycin and imipemem at admission Now vancomycin and levofloxacin (antibiotic day 5) To continue antibx through 04/27 (6 weeks) Angioplasty of superior femoral artery 03/19 and partially occluded stent. Ortho following for probable later amputation but they are concerned blood flow Outpatient f/u with vascular and cardiology (2) Critical limb ischemia with history of revascularization of same extremity: Code(s): I99.8 - Other disorder of circulatory system; Z95.9 - Presence of cardiac and vascular implant and graft, unspecified Status: Acute Assessment and Plan: With his peripheral vascular disease and past history was placed on IV heparin and a be seen by Cardiology who took to laborer wrecking and salvaging 03/19 and performed angioplasty of SFA where had partially occluded stent. Good flow was achieved per cardiology. Cardiology feels pt is safe for dischrage with vascular and orthopedic follow up. (3) Insulin dependent type 2 diabetes mellitus: Code(s): E11.9 - Type 2 diabetes mellitus without complications; Z79.4 - residential (current) use of insulin Status: Acute Assessment and Plan: Continue the Lantus and sliding scale and hold on his oral hypoglycemics (4) Hypertension: Qualifiers: Hypertension type: unspecified Qualified Code(s): I10 - Essential (primary) hypertension Code(s): I10 - Essential (primary) hypertension Status: Acute Assessment and Plan: Continue Qasim and beta-mike and calcium channel mike (5) Chronic kidney disease (CKD) stage G3a/A2, moderately decreased glomerular filtration rate (GFR) between 45-59 mL/min/1.73 square meter and albuminuria creatinine ratio between 30-299 mg/g: Code(s): N18.3 - Chronic kidney disease, stage 3 (moderate) Status: Acute Assessment and Plan: Creat stable known CKD stage 3 (6) Coronary artery disease involving [place] coronary artery of [place] heart: Qualifiers: Associated angina: without angina Qualified Code(s): I25.10 - Atherosclerotic heart disease of [place] coronary artery without angina pectoris Code(s): I25.10 - Atherosclerotic heart disease of [place] coronary artery without angina pectoris Status: Acute Assessment and Plan: Treated with beta-mike, statin, QASIM-inhibitor and aspirin Subjective Date/time seen: 03/24/20 11:48 Interval history: Admitted for gangrene of right 4th and 5th toes with osteomyelitis. 03/24. Awaiting approval of IV antibiotics. Tolerating diet. Denied pain. No chest pain or shortness of breath. No GI or complaint. No abnormal bleeding. Review of Systems Review of Systems: All systems reviewed & are unremarkable except as noted in HPI and below Exam Narrative: Exam Narrative: HEENT: EOMI, PERRL, sclerae nonicteric, pharyngeal mucosa pink and intact NECK: No JVD CHEST: Clear to auscultation. Normal effort. HEART: NL S1/S2, regular, no murmur ABDOMEN: BS+, soft, nontender, no mass, no bruits EXTREMITIES: Dry gangrene right 4th and 5th toes. No edema NEUROLOGIC: CN intact and symmetric to inspection. MUSCULOSKELETAL: Tone and strength symmetric. PSYCH: Alert. Oriented to person, place, and time. Objective Data Vital Signs Vital Signs: Vital Signs - 24 hr 03/23/20 12:00 03/23/20 14:00 03/23/20 16:00 Temperature 97.2 F L Pulse Rate 64 57 L 62 Respiratory Rate 16 Blood Pressure 170/62 H Pulse Oximetry 100 03/23/20 18:00 03/23/20 20:00 03/23/20 22:00 Temperature 97.4 F L 98.0 F Pulse Rate 61 61 58 L Respirator
--- NOTE | 2020-03-24 13:12 | PCDIET ---
Nutrition LOS Screen Complete: Pt current nutrition is DBCC. Nutrition recommendation: Appropriate Last recorded weight is 103.9 kg. Bowel Motility: Last BM 03/20 (on MagOxide) Labs Reviewed: Glucose 123 Meds Noted:Insulin, Vancomycin, Oxycodone Percocet, B12 Additional Notes: Pt eating well, 100, 100, 90, 80, 75%. Pt c/o low blood sugar overnight. At home he states he will adjust long acting and feels he is getting too much here. I encouraged patient to let MD know next time they visit. We will send Glucerna on evening tray for pt to sip on at night to help with blood glucose control. At home pt states he makes a shake with powdered milk and chocolate syrup and frozen yogurt. Pt has been trying to lose wt to improve diabetes and reduce his need for insulin. Pt states he has no questions regarding a DBCC diet before d/c. We will continue to monitor every seven days.
--- NOTE | 2020-03-24 13:44 | WPDINFPN2 ---
Progress Note: A&P Assessment and Plan (1) Osteomyelitis: Qualifiers: Laterality: right Osteomyelitis location: foot Osteomyelitis type: other acute Qualified Code(s): M86.171 - Other acute osteomyelitis, right ankle and foot Code(s): M86.9 - Osteomyelitis, unspecified Status: Acute Assessment and Plan: 1. OM of R 4th and 5th toes. Unable to tolerate MRI. No sepsis 2. ASPVD 3. Tobacco 4. PCN allergy --> anaphylaxis, also TMP 5. Gangrene of toes, causing #1 REC Vanc (target trough 15-20) and oral flouroquinolone through 04/27/20 (6 weeks after treatment onset). Dr. Quintanilla and Dr. Adame following also. CT of R foot, can be done as outpatient. Continue same. Additional Plan pt was seen and consult dictated. Thank you. Subjective Date/time seen: 03/24/20 13:44 Interval history: no new complaints Exam Narrative: Exam Narrative: afebrile Const: General: no acute distress Skin: General skin exam: normal color and no rashes or lesions noted Extrem: Other: gangrene toes 4-5 on right as before, erythema distal R leg without change Objective Data Vital Signs Vital Signs: Vital Signs - 24 hr 03/23/20 14:00 03/23/20 16:00 03/23/20 18:00 Temperature 36.2 C L 36.3 C L Pulse Rate 57 L 62 61 Respiratory Rate 16 16 Blood Pressure 170/62 H 170/49 H Pulse Oximetry 100 98 03/23/20 20:00 03/23/20 22:00 03/24/20 02:00 Temperature 36.7 C 36.1 C L Pulse Rate 61 58 L 68 Respiratory Rate 16 20 20 Blood Pressure 171/50 H 137/59 L Pulse Oximetry 98 99 98 03/24/20 06:00 03/24/20 08:42 03/24/20 10:00 Temperature 36.7 C 36.7 C Pulse Rate 59 L 66 68 Respiratory Rate 20 15 Blood Pressure 141/32 H 144/65 H Pulse Oximetry 98 98 Intake/Output Intake/Output: Intake & Output 03/21/20 03/22/20 03/23/20 03/24/20 23:59 23:59 23:59 23:59 Intake Total 1960 2165 1510 1330 Output Total 220 312 7045 800 Balance 985 1215 85 530 Meds/Results Medications: Active Medications Generic Name Dose Route Start Last Admin Trade Name Freq PRN Reason Stop Dose Admin Acetaminophen 650 mg 03/17/20 20:40 Tylenol Tablet PO Q4H PRN Mild Pain (1-3) or Fever Albuterol 2 puff 03/18/20 01:56 Proventil Hfa INHALATION Q4H PRN Shortness Of Breath Aspirin 162 mg 03/18/20 09:00 03/24/20 08:42 Aspirin Chewable PO 162 mg DAILY RHONDA Administration Clopidogrel Bisulfate 75 mg 03/18/20 09:00 03/24/20 08:42 Plavix PO 75 mg QAM RHONDA Administration Cyanocobalamin 2,500 mcg 03/18/20 09:00 03/24/20 08:42 Vitamin B-12 Tab PO 2,500 mcg DAILY RHONDA Administration Dextrose 12.5 gm 03/18/20 01:47 Dextrose 50% Syringe IV PUSH PRN PRN Hypoglycemia Protocol Docusate Sodium 100 mg 03/20/20 13:37 Colace Capsule PO Q12H PRN Constipation Enoxaparin Sodium 40 mg 03/20/20 21:00 03/23/20 20:32 Lovenox SUB-Q 40 mg HS RHONDA Administration Glucagon 1 mg 03/18/20 01:47 Glucagon For Inj IM PRN PRN Hypoglycemia Protocol Glucose 15 gm 03/18/20 01:47 Glutose 15 PO PRN PRN Hypoglycemia Protocol Dextrose 1,000 mls @ 100 mls/hr 03/18/20 01:47 Dextrose 5% 1,000 Ml IVPB PRN PRN Hypoglycemia Protocol Vancomycin HCl 1,250 mg in 250 mls @ 200 mls/hr 03/24/20 07:00 03/24/20 07:31 Vancomycin 1,250 Mg/D5w 250 Ml IVPB 200 mls/hr Q18H RHONDA Administration Insulin Aspart 3 - 6 units 03/18/20 08:00 03/24/20 11:52 Novolog SUB-Q Not Given TIDWM [facility] Protocol Insulin Glargine 50 units 03/18/20 17:00 03/23/20 17:06 Lantus SUB-Q 50 units 1700 RHONDA Administration Lisinopril 10 mg 03/19/20 17:00 03/23/20 16:58 Prinivil PO 10 mg DAILY@1700 RHONDA Administration Magnesium Oxide 400 mg 03/18/20 01:44 03/24/20 08:42 Mag-Ox PO 400 mg BID PRN Administration constipation Metoprolol Succinate 25 mg 03/18/20 09:
[2020-03-24 16:26] LABS: Glucose Point of Care 170 (65-105)
[2020-03-24] MEDS: INSULIN GLARGINE (*BKC) 100 UNITS/ML 34 UNITS SUB-Q (18:04)
[2020-03-24] MEDS: lisinopriL 10 MG TABLET PO (18:07)
[2020-03-24] MEDS: ENOXAPARIN 40 MG/0.4 ML SYRINGE SUB-Q (21:16)
[2020-03-24] MEDS: PRAVASTATIN SODIUM 20 MG TABLET 80 MG PO (21:17)
[2020-03-24 22:10] LABS: Glucose Point of Care 151 (65-105)
[2020-03-25 00:36] LABS: Glucose Point of Care 113 (65-105)
[2020-03-25 02:00] VITALS: BP 152/42; PULSE 67; RESP 16; TEMP 36.6; O2SAT 98
[2020-03-25 05:49] VITALS: BP 162/47; PULSE 61; RESP 16; TEMP 36.2; O2SAT 100
[2020-03-25 07:47] LABS: Glucose Point of Care 86 (65-105)
[2020-03-25] MEDS: ASPIRIN 81 MG CHEWABLE TABLET 162 MG PO (08:13)
[2020-03-25] MEDS: CLOPIDOGREL BISULFATE 75 MG TABLET PO (08:13)
[2020-03-25 08:14] VITALS: PULSE 61
[2020-03-25] MEDS: METOPROLOL SUCCINATE EXT REL 25 MG TABCR PO (08:14)
[2020-03-25] MEDS: CYANOCOBALAMIN 500 MCG TABLET 2500 MCG PO (08:14)
--- NOTE | 2020-03-25 09:08 | PM.DS ---
DS: Summary Hospital Course Reason for hospitalization: Infected right foot Hospital Course: Admitted with diabetic foot infection. Found to have significant PAD. Treated with Vancomycin and Levaquin. After revascularization, he was discharged to home to complete course of IV antibiotics. Time Spent with Patient Time attestation: Total time spent providing and/or coordinating discharge services: Exam Narrative: Exam Narrative: HEENT: EOMI, PERRL, sclerae nonicteric, pharyngeal mucosa pink and intact NECK: No JVD CHEST: Clear to auscultation. Normal effort. HEART: NL S1/S2, regular, no murmur ABDOMEN: BS+, soft, nontender, no mass, no bruits EXTREMITIES: Dry gangrene right 4th and 5th toes. No edema NEUROLOGIC: CN intact and symmetric to inspection. MUSCULOSKELETAL: Tone and strength symmetric. PSYCH: Alert. Oriented to person, place, and time. DS: Data Data Completed and Pending Labs on day of discharge: Labs from last 24 hours 03/25/20 03/25/20 03/24/20 07:40 00:31 21:34 POC Capillary Glucose 86 113 H 151 H 03/24/20 03/24/20 16:23 11:37 POC Capillary Glucose 170 H 123 H Discharge Plan Discharge Consulting providers: Jassi Adame ; Jayden Quintanilla ; Hector Vallejo ; Vincent Loyola ; Skyler Valdez ; Skinny Wilkerson ; Maynor Strickland ; Faisal Elizabeth ; Rosie Alaniz ; Cha Altman ; Toni Pienda V. Discharging Clinician: Jovani Paz Patient Disposition: Home Health Service Activity: may shower Wound Care Instructions: other - see discharge instructions Discharge Instructions: Betadine ointment to right 4th and 5th toes. May cover with gauze or leave open to air. Post op shoe for weight bearing Per Care Coordination: [facility] is arranged to follow at discharge. [facility] RN will follow for IV infusion, IV line site, blood draws, and wound care. [facility] can be contacted at [phone]. [facility] infusion has been arranged to follow at discharge. [facility] can be contacted at [phone]. Patient Instructions: Antibiotic Form, How to Stop Smoking (DC), Pain Management (DC), COPD (Chronic Obstructive Pulmonary Disease) (ED), Peripheral Artery Disease (DC), Diabetes and Your Skin (ED), PICC (Peripherally Inserted Central Catheter) (GEN), Diabetes and Nutrition (DC) Stand Alone Forms: General Discharge Information Follow-up/Referrals: Jassi Adame MD [Physician] - Call for Appointment Johnathon Oleary Jr., MD [Primary Care Provider] - Call for Appointment Jayden Quintanilla MD [Physician] - Follow Up with Primary Dr (PRN) Hector Vallejo MD [Physician] - Call for Appointment Discharge Medications: New acetaminophen [Mapap (acetaminophen)] 325 mg Tablet 650 mg PO Q4H PRN (Reason: Mild Pain (1-3) Or Fever) Qty: 120 RF: 0 nystatin 100,000 unit/mL Suspension 5 ml PO QID Qty: 500 RF: 0 levofloxacin in D5W 750 mg/150 mL Piggyback 750 mg IV Q24H Qty: 33 RF: 0 polyethylene glycol 3350 [Miralax] 17 gram Powder In Packet 17 g PO QAM PRN (Reason: Constipation) 30 Days Qty: 30 RF: 0 vancomycin in 0.9 % sodium chl 1.25 gram/250 mL Solution 1.25 g IV Q24H Qty: 32 RF: 0 Continued nitroglycerin 0.4 mg tablet, sublingual 0.4 mg sublingual Q5M PRN (Reason: Chest Pain) RF: 0 aspirin 325 mg Tablet 162.5 mg PO DAILY RF: 0 cyanocobalamin (vitamin B-12) 2,500 mcg Tablet 2,500 mcg PO DAILY RF: 0 furosemide [Lasix] 40 mg tablet 40 mg PO QAM PRN (Reason: edema) RF: 0 pravastatin [Pravachol] 40 mg tablet 80 mg PO HS RF: 0 lisinopril [Zestril] 10 mg tablet 10 mg PO DAILY RF: 0 magnesium oxide 400 mg magnesium capsule 400 mg PO BID PRN (Reason: Muscle Spasm) RF: 0 nicotine (polacrilex) 4 mg Gum 4 mg BUCCAL Q1H RF: 0 sodium chloride [Saline Nasal] 0.65 % Aerosol,Seiling 2 spray INTRANASAL Q4H PRN (Reason: Nasal Congestion) RF: 0 metoprolol succinate [Toprol XL]
[2020-03-25 10:00] VITALS: BP 168/35; PULSE 68; RESP 17; TEMP 37.1; O2SAT 98
[2020-03-25 11:46] LABS: Glucose Point of Care 159 (65-105)
--- NOTE | 2020-03-25 14:52 | WPDINFPN2 ---
Progress Note: A&P Assessment and Plan (1) Osteomyelitis: Qualifiers: Laterality: right Osteomyelitis location: foot Osteomyelitis type: other acute Qualified Code(s): M86.171 - Other acute osteomyelitis, right ankle and foot Code(s): M86.9 - Osteomyelitis, unspecified Status: Acute Assessment and Plan: 1. OM of R 4th and 5th toes. Unable to tolerate MRI. No sepsis 2. ASPVD 3. Tobacco 4. PCN allergy --> anaphylaxis, also TMP 5. Gangrene of toes, causing #1 REC Vanc (target trough 15-20) and oral flouroquinolone through 04/27/20 (6 weeks after treatment onset). Dr. Quintanilla and Dr. Adame following also. CT of R foot, can be done as outpatient. Ok discharge, see me in office Subjective Date/time seen: 03/25/20 14:52 Interval history: no new complaints Exam Narrative: Exam Narrative: afebrile Extrem: Other: exam of toes and foot without change Objective Data Vital Signs Vital Signs: Vital Signs - 24 hr 03/24/20 18:00 03/24/20 22:00 03/25/20 02:00 Temperature 36.8 C 36.4 C L 36.6 C Pulse Rate 65 64 67 Respiratory Rate 17 16 16 Blood Pressure 167/42 H 179/44 H 152/42 H Pulse Oximetry 98 98 98 03/25/20 05:49 03/25/20 08:14 03/25/20 10:00 Temperature 36.2 C L 37.1 C Pulse Rate 61 61 68 Respiratory Rate 16 17 Blood Pressure 162/47 H 168/35 H Pulse Oximetry 100 98 Intake/Output Intake/Output: Intake & Output 03/22/20 03/23/20 03/24/20 03/25/20 23:59 23:59 23:59 23:59 Intake Total 2165 1510 2310 955 Output Total 950 1425 1550 1275 Balance 1215 85 760 -320 Meds/Results Medications: Active Medications Generic Name Dose Route Start Last Admin Trade Name Freq PRN Reason Stop Dose Admin Acetaminophen 650 mg 03/17/20 20:40 Tylenol Tablet PO Q4H PRN Mild Pain (1-3) or Fever Albuterol 2 puff 03/18/20 01:56 Proventil Hfa INHALATION Q4H PRN Shortness Of Breath Aspirin 162 mg 03/18/20 09:00 03/25/20 08:13 Aspirin Chewable PO 162 mg DAILY RHONDA Administration Clopidogrel Bisulfate 75 mg 03/18/20 09:00 03/25/20 08:13 Plavix PO 75 mg QAM RHONDA Administration Cyanocobalamin 2,500 mcg 03/18/20 09:00 03/25/20 08:14 Vitamin B-12 Tab PO 2,500 mcg DAILY RHONDA Administration Dextrose 12.5 gm 03/18/20 01:47 Dextrose 50% Syringe IV PUSH PRN PRN Hypoglycemia Protocol Docusate Sodium 100 mg 03/20/20 13:37 Colace Capsule PO Q12H PRN Constipation Enoxaparin Sodium 40 mg 03/20/20 21:00 03/24/20 21:16 Lovenox SUB-Q 40 mg HS RHONDA Administration Glucagon 1 mg 03/18/20 01:47 Glucagon For Inj IM PRN PRN Hypoglycemia Protocol Glucose 15 gm 03/18/20 01:47 Glutose 15 PO PRN PRN Hypoglycemia Protocol Dextrose 1,000 mls @ 100 mls/hr 03/18/20 01:47 Dextrose 5% 1,000 Ml IVPB PRN PRN Hypoglycemia Protocol Vancomycin HCl 1,250 mg in 250 mls @ 200 mls/hr 03/24/20 07:00 03/25/20 05:27 Vancomycin 1,250 Mg/D5w 250 Ml IVPB Infused Q18H RHONDA Infusion Levofloxacin/Dextrose 750 mg in 150 mls @ 100 mls/hr 03/24/20 17:00 03/24/20 20:04 Levaquin 750 Mg/D5w 150 Ml IVPB Infused Q24H [facility] Infusion Insulin Aspart 3 - 6 units 03/18/20 08:00 03/25/20 12:34 Novolog SUB-Q Not Given TIDWM [facility] Protocol Insulin Glargine 34 units 03/24/20 17:00 03/24/20 18:04 Lantus SUB-Q 34 units 1700 [facility] Administration Lisinopril 10 mg 03/19/20 17:00 03/24/20 18:07 Prinivil PO 10 mg DAILY@1700 [facility] Administration Magnesium Oxide 400 mg 03/18/20 01:44 03/24/20 08:42 Mag-Ox PO 400 mg BID PRN Administration constipation Metoprolol Succinate 25 mg 03/18/20 09:00 03/25/20 08:14 Toprol Xl PO 25 mg DAILY RHONDA Administration Nystatin 5 ml 03/18/20 13:00 03/25/20 12:34 Nystatin 100,000 Units/Ml Susp PO Not Given QID [facility] Oxycodone HCl 10 mg 03/21/20 11:45
== END 2020-03-25 16:56 | disposition home health service (06) | DRG 181 ==
LOC: ANHED 20:48 → ANH2MED 22:56
PROVIDERS: Family Medicine; Internal Medicine; Specialist; Admitting Provider Internal Medicine; Emergency Provider Emergency Medicine; PCP Internal Medicine; Visit Provider Internal Medicine
PROC: 047K3Z1 Dilation of Right Femoral Artery using Drug-Coated Balloon, Percutaneous Approach (ICD-10-PCS; CPT 75630; principal; 2020-03-19 07:30)
PROC: 047K3Z1 Dilation of Right Femoral Artery using Drug-Coated Balloon, Percutaneous Approach (ICD-10-PCS; CPT 36200; 2020-03-19 07:30)
PROC: 047K3Z1 Dilation of Right Femoral Artery using Drug-Coated Balloon, Percutaneous Approach (ICD-10-PCS; CPT 37224; 2020-03-19 07:30)
DX: T82.856A Stenosis of peripheral vascular stent, initial encounter (principal); E11.52 Type 2 diabetes mellitus with diabetic peripheral angiopathy with gangrene; E11.69 Type 2 diabetes mellitus with other specified complication; M86.171 Other acute osteomyelitis, right ankle and foot; E11.22 Type 2 diabetes mellitus with diabetic chronic kidney disease; I12.9 Hypertensive chronic kidney disease with stage 1 through stage 4 chronic kidney disease, or unspecified chronic kidney disease; N18.3 Chronic kidney disease, stage 3 (moderate); E11.42 Type 2 diabetes mellitus with diabetic polyneuropathy; L03.115 Cellulitis of right lower limb; I99.8 Other disorder of circulatory system; I25.10 Atherosclerotic heart disease of native coronary artery without angina pectoris; I25.2 Old myocardial infarction; G89.4 Chronic pain syndrome; E78.5 Hyperlipidemia, unspecified; K21.9 Gastro-esophageal reflux disease without esophagitis; F17.210 Nicotine dependence, cigarettes, uncomplicated; F90.9 Attention-deficit hyperactivity disorder, unspecified type; M19.90 Unspecified osteoarthritis, unspecified site; Z95.828 Presence of other vascular implants and grafts; Z79.4 Long term (current) use of insulin; Z79.82 Long term (current) use of aspirin; Z79.899 Other long term (current) drug therapy; Z86.718 Personal history of other venous thrombosis and embolism; Z91.19 Patient's noncompliance with other medical treatment and regimen; Z95.5 Presence of coronary angioplasty implant and graft; Z88.0 Allergy status to penicillin; Z88.1 Allergy status to other antibiotic agents; Z95.9 Presence of cardiac and vascular implant and graft, unspecified
CPT/HCPCS: 36200; 36415; 36569; 37224; 73630; 75630; 80048; 80053; 80202; 82565; 82607; 82728; 83540; 83550; 83615; 85025; 85610; 85652; 85730; 86140; 87040; 93922; 93926; 96365; 96367; 99285; C1725; A9270; C1751; C1769; C1887; C1894; J0360; J1170; J1644; J1650; J1815; J1956; J2250; J3010; J3370; J7040

== ENCOUNTER 2020-03-30 10:30 | Outpatient (RCR) | payer OTHER, SELFPAY ==
[2020-03-26 12:21] LABS: Blood Urea Nitrogen 21 mg/dL (9-20); Calcium 8.9 mg/dL (8.4-10.2); Carbon Dioxide 25 mmol/L (22-30); Chloride 105 mmol/L (98-107); Estimated Glomerular Filt Rate > 60; Glucose 159 mg/dL (75-110); Potassium 4.5 mmol/L (3.4-5.0); Sodium 136 mmol/L (137-145)
[2020-03-30 10:43] LABS: Basophils Absolute Auto 0.1 K/mm3 (0.0-0.1); Basophils Percent Auto 0.7 % (0.2-1.2); Eosinophils Absolute Auto 0.3 K/mm3 (0-0.3); Eosinophils Percent Auto 3.2 % (0-4.4); Hematocrit 28.3 % (42.0-52.0); Immature Granulocyte Absolute 0.03 K/mm3 (0.00-0.031); Immature Granulocyte Percent A 0.3 % (0-0.5); Lymphocytes Absolute Auto 2.35 K/mm3 (0.9-3.2); Lymphocytes Percent Auto 23.3 % (18.3-44.2); Mean Corpuscular HGB Conc 31.8 g/dl (32-36); Mean Corpuscular Hemoglobin 31.4 pg (26-34); Mean Corpuscular Volume 98.6 fl (80-100); Mean Platelet Volume 10.4 fl (7.4-10.4); Monocytes Absolute Auto 0.7 K/mm3 (0.1-0.6); Monocytes Percent Auto 7.3 % (2.6-8.5); Neutrophils Absolute Auto 6.6 K/mm3 (1.3-6.7); Neutrophils Percent Auto 65.2 % (45.5-73.1); Platelet Count Result 248 k/mm3 (150-375); Red Blood Count 2.87 M/mm3 (4.6-6.20); Red Cell Distribution Width 14.7 % (11.5-14.5); White Blood Count 10.1 K/mm3 (4.5-10.0)
[2020-03-30 10:46] LABS: Blood Urea Nitrogen 15 mg/dL (9-20); CRP 2.3 mg/dL (<1.0); Calcium 8.8 mg/dL (8.4-10.2); Carbon Dioxide 25 mmol/L (22-30); Chloride 109 mmol/L (98-107); Estimated Glomerular Filt Rate > 60; Glucose 89 mg/dL (75-110); Potassium 3.8 mmol/L (3.4-5.0); Sodium 138 mmol/L (137-145)
== END 2020-06-24 23:59 | disposition home or self-care (01) ==
LOC: HOME HLTH 10:30
PROVIDERS: PCP Internal Medicine; Visit Provider Internal Medicine Infectious Disease
DX: E11.52 Type 2 diabetes mellitus with diabetic peripheral angiopathy with gangrene (principal); E11.69 Type 2 diabetes mellitus with other specified complication; M86.171 Other acute osteomyelitis, right ankle and foot; Z79.4 Long term (current) use of insulin; Z79.2 Long term (current) use of antibiotics
CPT/HCPCS: 80048; 80202; 85025; 86140

== ENCOUNTER 2020-04-13 11:13 | Outpatient (RCR) | payer OTHER, SELFPAY ==
[2020-04-09 18:12] LABS: Blood Urea Nitrogen 23 mg/dL (9-20); Calcium 8.9 mg/dL (8.4-10.2); Carbon Dioxide 23 mmol/L (22-30); Chloride 109 mmol/L (98-107); Estimated Glomerular Filt Rate > 60; Glucose 177 mg/dL (75-110); Potassium 4.1 mmol/L (3.4-5.0); Sodium 139 mmol/L (137-145)
[2020-04-13 11:53] LABS: Basophils Absolute Auto 0.1 K/mm3 (0.0-0.1); Basophils Percent Auto 0.9 % (0.2-1.2); Eosinophils Absolute Auto 0.5 K/mm3 (0-0.3); Eosinophils Percent Auto 5.2 % (0-4.4); Hematocrit 31.8 % (42.0-52.0); Hemoglobin 9.8 g/dL (14.0-18.0); Immature Granulocyte Absolute 0.03 K/mm3 (0.00-0.031); Immature Granulocyte Percent A 0.3 % (0-0.5); Lymphocytes Absolute Auto 1.27 K/mm3 (0.9-3.2); Lymphocytes Percent Auto 14.8 % (18.3-44.2); Mean Corpuscular HGB Conc 30.8 g/dl (32-36); Mean Corpuscular Hemoglobin 30.9 pg (26-34); Mean Corpuscular Volume 100.3 fl (80-100); Mean Platelet Volume 10.9 fl (7.4-10.4); Monocytes Absolute Auto 0.6 K/mm3 (0.1-0.6); Monocytes Percent Auto 6.5 % (2.6-8.5); Neutrophils Absolute Auto 6.2 K/mm3 (1.3-6.7); Neutrophils Percent Auto 72.3 % (45.5-73.1); Platelet Count Result 198 k/mm3 (150-375); Red Blood Count 3.17 M/mm3 (4.6-6.20); Red Cell Distribution Width 15.6 % (11.5-14.5); White Blood Count 8.6 K/mm3 (4.5-10.0)
[2020-04-13 12:11] LABS: Blood Urea Nitrogen 20 mg/dL (9-20); CRP 1.6 mg/dL (<1.0); Calcium 8.8 mg/dL (8.4-10.2); Carbon Dioxide 21 mmol/L (22-30); Chloride 112 mmol/L (98-107); Estimated Glomerular Filt Rate > 60; Glucose 118 mg/dL (75-110); Potassium 4.2 mmol/L (3.4-5.0); Sodium 138 mmol/L (137-145)
[2020-04-13 12:53] LABS: Vancomycin Trough 11.3 ug/mL (10.0-20.0)
== END 2020-07-08 23:59 | disposition home or self-care (01) ==
LOC: HOME HLTH 11:13
PROVIDERS: PCP Internal Medicine; Visit Provider Internal Medicine Infectious Disease
DX: M86.171 Other acute osteomyelitis, right ankle and foot (principal); E11.52 Type 2 diabetes mellitus with diabetic peripheral angiopathy with gangrene; Z79.2 Long term (current) use of antibiotics
CPT/HCPCS: 80048; 80202; 85025; 86140

== ENCOUNTER 2020-08-17 13:11 | Outpatient (CLI) | payer OTHER, SELFPAY ==
--- NOTE | ~2020-08-17 | XR_ITS ---
EXAMINATION: XR foot RT min 3V DATE: 08/17/2020 13:38 INDICATION: Skin ulcer of the toe TECHNIQUE: Dorsoplantar, lateral, and oblique views of the right foot were obtained. COMPARISON: 03/17/2020 FINDINGS: The bones are osteopenic. There is mild to moderate polyarticular osteoarthritis. There is plantar soft tissue swelling of the foot near the fourth and fifth metatarsophalangeal joints. No def inite associated osseous erosions are identified. There is calcified atherosclerosis. Dorsal and plan tar calcaneal enthesophytes are noted. IMPRESSION: 1. Plantar soft tissue swelling of the foot without definite underlying osteomyelitis. Reviewed, dictated and finalized at location A. IMPRESSION: 1. Plantar soft tissue swelling of the foot without definite underlying osteomy elitis.
== END 2020-08-17 13:12 | disposition home or self-care (01) ==
LOC: ANHIMG 13:14
PROVIDERS: PCP Family Medicine; Visit Provider Podiatrist Foot & Ankle Surgery
DX: E11.621 Type 2 diabetes mellitus with foot ulcer (principal)
CPT/HCPCS: 73630

== ENCOUNTER 2020-08-19 08:18 | Emergency (ER) | payer OTHER, SELFPAY ==
[2020-08-19 08:20] VITALS: BP 162/80; PULSE 85; RESP 20; TEMP 36.6; O2SAT 99
--- NOTE | 2020-08-19 08:25 | ED.BACK ---
HPI - Back Pain/Injury General Chief Complaint: Back Pain/Injury Stated Complaint: ambulance Time Seen by Provider: 08/19/20 08:35 Source: patient Mode of arrival: EMS Limitations: no limitations History of Present Illness HPI Narrative: 6-year-old man with type 1 diabetes and chronic low back pain ( T11-T12 disc disease) comes in today complaining of worsening back pain since 8 or 10 days ago. Patient states that he has had no falls or injuries, and other than doing some yd work, has done nothing to exacerbate his back pain. He states that he has some pain radiating down down to his left hip but he denies incontinence, dysuria, hematuria, new weakness, new numbness or tingling, and fever. Patient states that his new doctor has him scheduled to go to pain management but in the interim he has run out of his pain medications. He took some medications that his friend had and some he had left over from a previous surgery. MD elicited complaint: back pain and back injury Pertinent past history: prior back pain, neurological deficit ( Diabetic neuropathy in his feet) and arthritis Onset (ago): day(s) (-) Timing: constant and progressively worsening Severity: severe Similar Symptoms Previously: Yes Quality: sharp and aching Location: lumbar spine and thoracic spine Radiation: other (left hip) Exacerbating factors: movement Relieving factors: other (standing) Context: other (yard work) Associated symptoms: loss of sensation in lower extremities (extant) and increased urinary frequency Work related injury: No Related Data Home Medications Medication Instructions Recorded Confirmed cyanocobalamin (vitamin B-12) 2,500 mcg PO DAILY 11/08/19 06/19/20 furosemide [Lasix] 40 mg PO QAM PRN 11/08/19 06/19/20 pravastatin [Pravachol] 80 mg PO HS 11/08/19 06/19/20 insulin syringe-needle U-100 1/2 #90 each 03/05/20 06/19/20 mL 31 gauge x 15/64 nitroglycerin 0.4 mg sublingual 0.4 mg SUBLINGUAL Q5M PRN tablet 03/05/20 06/19/20 tablet pen needle, diabetic 31 gauge x #30 each 03/05/20 06/19/20/16 sodium chloride [Saline Nasal] 2 spray INTRANASAL Q4H PRN 03/17/20 06/19/20 aspirin 325 mg tablet,delayed 325 mg PO DAILY 06/19/20 06/19/20 release clopidogrel 75 mg tablet 75 mg PO DAILY 06/19/20 06/19/20 Allergies Allergy/AdvReac Type Severity Reaction Status Date / Time amoxicillin Allergy Severe shortness Verified 08/19/20 08:39 of breath Penicillins Allergy Severe Anaphylactic Verified 08/19/20 08:39 Shock trimethoprim Allergy Intermediate Unknown Verified 08/19/20 08:39 Review of Systems Constitutional: Constitutional: Denies chills and Denies fever(s) ENT: Denies dysphagia, Denies nasal congestion and Denies sore throat Cardiovascular: Cardiovascular: Denies chest pain and Denies radiating jaw, neck or arm pain Respiratory: Respiratory: Denies cough and Denies dyspnea Gastrointestinal: Gastrointestinal: Reports abdominal pain (mild), Denies diarrhea, Denies nausea and Denies vomiting Genitourinary: Genitourinary: Reports as per HPI, Denies hematuria, Denies dysuria and Reports urinary frequency Musculoskeletal: Musculoskeletal: Reports as per HPI and Denies joint swelling Integumentary/Breasts: Skin/Breast: Denies pruritus, Denies erythema and Denies rash Neurologic: Denies vertigo, Denies dizziness and Denies syncope Hematologic/Lymphatic: Hematologic/Lymphatic: Denies easy bleeding and Denies easy bruising Allergic/Immunologic: Allergic/Immunologic: Denies lip swelling and Denies tongue swelling PMFSH Past Medical History Medical History ADHD (attention deficit hyperactivity disorder) Cellulitis of both feet Chronic kidney disease, stage 3 Baseline creatinine between 1.5 and 1.60. Chronic pain syndrome On long-term opiates. Coronary artery disease With history of stents. Degenerative disc disease Diabetic foot infection Gangrene of toe of rig
[2020-08-19] MEDS: HYDROcodone/acetaminophen (*CRX) 5-325 MG TABLET 1 TAB PO (09:01)
[2020-08-19 09:06] LABS: Appearance Urine Clear (Clear); Bilirubin Urine Negative (Negative); Color Urine Yellow (Yellow); Glucose Urine UA Negative (Negative); Ketones Urine Negative (Negative); Leukocyte Esterase Ur Negative (Negative); Nitrate Urine Negative (Negative); Protein Urine Trace (Negative); Specific Grav Ur 1.025 (1.010-1.020); Urobilinogen Urine 0.2 mg/dL (0.2-1.0); pH Urine 5.5 (5.0-8.0)
[2020-08-19 09:07] LABS: Add Urine Microscopic? YES; Blood Urine Trace-Intact (Negative)
[2020-08-19 09:11] LABS: RBC Urine 0-2 /hpf (0-2); WBC Urine 0-3 /hpf (0-3)
[2020-08-19 09:12] LABS: Bacteria Urine Trace /hpf; Squamous Epithelial Cell Urine Few /hpf (Few)
[2020-08-19 09:27] VITALS: BP 155/78; PULSE 80; RESP 18; TEMP 36.7; O2SAT 99
== END 2020-08-19 09:28 | disposition home or self-care (01) ==
PROVIDERS: Emergency Provider Emergency Medicine
DX: M54.42 Lumbago with sciatica, left side (principal)
CPT/HCPCS: 81001; 99283; A9270

== ENCOUNTER 2020-11-10 11:21 | Emergency (ER) | payer OTHER, SELFPAY ==
--- NOTE | 2020-11-10 11:36 | ED.BACK ---
HPI - Back Pain/Injury General Chief Complaint: Back Pain/Injury Stated Complaint: ambulance Time Seen by Provider: 11/10/20 11:36 Source: patient Mode of arrival: EMS Limitations: no limitations History of Present Illness HPI Narrative: 60-year-old man with a history of peripheral vascular disease, type 1 diabetes mellitus, and chronic kidney disease brought to the emergency department by EMS after reporting that at 11:30 a.m. last night his back pain became much worse. States that he saw his doctor on November 04 and states that since then his back pain has been worse. He states that he has had no numbness, tingling, leg weakness, incontinence, perineal numbness. He denies any falls or injuries and has had no prior back surgeries or fractures. He states that his doctor usually is prescribed Tylenol No. 4 for back pain management. MD elicited complaint: back pain Pertinent past history: prior back pain Onset (ago): week(s) (1) Timing: constant Severity: severe Pain scale (0-10): 9 Similar Symptoms Previously: Yes Quality: sharp and aching Location: thoracic spine Radiation: none Exacerbating factors: movement Relieving factors: other ( position) Treatments prior to arrival: NSAIDS and acetaminophen Work related injury: No Related Data Home Medications Medication Instructions Recorded Confirmed cyanocobalamin (vitamin B-12) 2,500 mcg PO DAILY 11/08/19 06/19/20 furosemide [Lasix] 40 mg PO QAM PRN 11/08/19 06/19/20 pravastatin [Pravachol] 80 mg PO HS 11/08/19 06/19/20 insulin syringe-needle U-100 / #90 each 03/05/20 06/19/20 mL 31 gauge x 15/64 nitroglycerin 0.4 mg sublingual 0.4 mg SUBLINGUAL Q5M PRN tablet 03/05/20 06/19/20 tablet pen needle, diabetic 31 gauge x #30 each 03/05/20 06/19/2001/26 sodium chloride [Saline Nasal] 2 spray INTRANASAL Q4H PRN 03/17/20 06/19/20 aspirin 325 mg tablet,delayed 325 mg PO DAILY 06/19/20 06/19/20 release clopidogrel 75 mg tablet 75 mg PO DAILY 06/19/20 06/19/20 Allergies Allergy/AdvReac Type Severity Reaction Status Date / Time amoxicillin Allergy Severe shortness Verified 08/19/20 08:39 of breath Penicillins Allergy Severe Anaphylactic Verified 08/19/20 08:39 Shock trimethoprim Allergy Intermediate Unknown Verified 08/19/20 08:39 Review of Systems Constitutional: Constitutional: Reports chills and Denies fever(s) Respiratory: Respiratory: Denies cough and Denies dyspnea Gastrointestinal: Gastrointestinal: Denies nausea and Denies vomiting Musculoskeletal: Musculoskeletal: Reports back pain, Denies arthralgias and Denies joint swelling Integumentary/Breasts: Skin/Breast: Denies pruritus, Denies erythema and Denies rash Comments: Chronic right foot wound for which he is taking doxycycline. Neurologic: Denies vertigo, Denies dizziness and Denies syncope Hematologic/Lymphatic: Hematologic/Lymphatic: Denies easy bleeding and Denies easy bruising Allergic/Immunologic: Allergic/Immunologic: Denies throat swelling and Denies tongue swelling PMFSH Past Medical History Medical History ADHD (attention deficit hyperactivity disorder) Cellulitis of both feet Chronic kidney disease, stage 3 Baseline creatinine between 1.5 and 1.60. Chronic pain syndrome On long-term opiates. Coronary artery disease With history of stents. Degenerative disc disease Diabetic foot infection Gangrene of toe of right foot GERD (gastroesophageal reflux disease) History of DVT of lower extremity Hospital discharge follow-up Hyperlipidemia Hypertension Insulin dependent type 2 diabetes mellitus Myocardial infarction Osteoarthritis Peripheral arterial disease Status post right lower extremity revascularization per Dr. Altman. Shortness of breath on exertion Tobacco abuse Surgical History Surgical History H/O cardiac catheterization History of left-sided
[2020-11-10 11:44] VITALS: BP 169/86; PULSE 84; RESP 18; TEMP 36.9; O2SAT 98
== END 2020-11-10 12:08 | disposition home or self-care (01) ==
PROVIDERS: Emergency Provider Emergency Medicine
DX: M51.24 Other intervertebral disc displacement, thoracic region (principal)
CPT/HCPCS: 99283

== ENCOUNTER 2020-11-15 15:13 | Emergency (ER) | payer BC, SELFPAY ==
[2020-11-15 15:12] VITALS: BP 183/56; PULSE 74; RESP 17; TEMP 36.6; O2SAT 97
--- NOTE | 2020-11-15 15:41 | ED.BACK ---
HPI - Back Pain/Injury General Chief Complaint: Back Pain/Injury Stated Complaint: back pain Time Seen by Provider: 11/15/20 15:23 Source: patient Mode of arrival: EMS Limitations: no limitations History of Present Illness HPI Narrative: Patient is a 60-year-old male who presents by EMS with complaints of chronic back pain. Patient has been seen multiple times, in multiple ERs for same complaint. Patient requesting narcotic pain medication. Patient denies all other complaints at this time. Reports taking [place] x2 earlier today to RN. Patient then denies taking any medications for pain to this HIM SPECIALIST. Patient reports pain is 9/10 and requesting IV pain meds. He reports he seen pain management in the past but they are quacks . Patient then requested Valium as a muscle relaxant as he has taken in the past. Related Data Home Medications Medication Instructions Recorded Confirmed cyanocobalamin (vitamin B-12) 2,500 mcg PO DAILY 11/08/19 06/19/20 furosemide [Lasix] 40 mg PO QAM PRN 11/08/19 06/19/20 pravastatin [Pravachol] 80 mg PO HS 11/08/19 06/19/20 insulin syringe-needle U-100 / #90 each 03/05/20 06/19/20 mL 31 gauge x 15 nitroglycerin 0.4 mg sublingual 0.4 mg SUBLINGUAL Q5M PRN tablet 03/05/20 06/19/20 tablet pen needle, diabetic 31 gauge x #30 each 03/05/20 06/19/20/16 sodium chloride [Saline Nasal] 2 spray INTRANASAL Q4H PRN 03/17/20 06/19/20 aspirin 325 mg tablet,delayed 325 mg PO DAILY 06/19/20 06/19/20 release clopidogrel 75 mg tablet 75 mg PO DAILY 06/19/20 06/19/20 Allergies Allergy/AdvReac Type Severity Reaction Status Date / Time amoxicillin Allergy Severe shortness Verified 11/15/20 15:17 of breath Penicillins Allergy Severe Anaphylactic Verified 11/15/20 15:17 Shock trimethoprim Allergy Intermediate Unknown Verified 11/15/20 15:17 Review of Systems Review of Systems: Narrative: CONSTITUTIONAL: Denies fever, chills, or sweats. EYES: Denies visual changes, redness, or discharge. ENT: Denies rhinorrhea, congestion, sore throat, or otalgia. CARDIOVASCULAR: Denies chest pain, palpitations, or edema. RESPIRATORY: Denies cough or dyspnea. GASTROINTESTINAL: Denies abdominal pain, nausea, vomiting, or diarrhea. GENITOURINARY: Denies dysuria or hematuria. SKIN: Denies rash or itching. MUSCULOSKELETAL: Reports back pain increasing over the past week NEUROLOGIC: Denies headache, numbness, dizziness, or weakness. PSYCHIATRIC: Denies anxiety or depression. [facility] Past Medical History Medical History (Updated 11/15/20 @ 15:48 by CAROLYN Bland) ADHD (attention deficit hyperactivity disorder) Cellulitis of both feet Chronic kidney disease, stage 3 Baseline creatinine between 1.5 and 1.60. Chronic pain syndrome On long-term opiates. Coronary artery disease With history of stents. Degenerative disc disease Diabetic foot infection Gangrene of toe of right foot GERD (gastroesophageal reflux disease) History of DVT of lower extremity Hospital discharge follow-up Hyperlipidemia Hypertension Insulin dependent type 2 diabetes mellitus Myocardial infarction Osteoarthritis Peripheral arterial disease Status post right lower extremity revascularization per Dr. Altman. Shortness of breath on exertion Tobacco abuse Surgical History Surgical History H/O cardiac catheterization History of left-sided carotid endarterectomy History of revascularization procedure of lower extremity Right lower extremity angioplasty and stent per Dr. Hurt. Family History Family History Father , age 91 CAD Acute myocardial infarction Mother , age 85 CVA Cerebrovascular accident Other Family history of arthritis Family history of cardiovascular disease Family history of chronic obstructive pulmonary disease Family history of mental disorder Hypertension Soci
[2020-11-15] MEDS: CYCLOBENZAPRINE HCL 10 MG TABLET PO (16:12)
== END 2020-11-15 16:59 | disposition home or self-care (01) ==
PROVIDERS: Emergency Provider Nurse Practitioner; PCP Family Medicine
DX: M54.9 Dorsalgia, unspecified (principal); I25.10 Atherosclerotic heart disease of native coronary artery without angina pectoris; G89.4 Chronic pain syndrome; E11.22 Type 2 diabetes mellitus with diabetic chronic kidney disease; I12.9 Hypertensive chronic kidney disease with stage 1 through stage 4 chronic kidney disease, or unspecified chronic kidney disease; N18.30 Chronic kidney disease, stage 3 unspecified; K21.9 Gastro-esophageal reflux disease without esophagitis; Z86.718 Personal history of other venous thrombosis and embolism; M19.90 Unspecified osteoarthritis, unspecified site; E11.51 Type 2 diabetes mellitus with diabetic peripheral angiopathy without gangrene; I25.2 Old myocardial infarction; F17.210 Nicotine dependence, cigarettes, uncomplicated; Z79.82 Long term (current) use of aspirin; Z79.4 Long term (current) use of insulin
CPT/HCPCS: 99283; A9270

== ENCOUNTER 2022-08-04 15:59 | Emergency (ER) | payer BC, SELFPAY ==
[2022-08-04] VITALS (24 sets, daily range): BP systolic 153–211; BP diastolic 40–185; PULSE 62–76; RESP 9–26; TEMP 36.5; O2SAT 94–98
--- NOTE | ~2022-08-04 | XR_ITS ---
XR knee RT 2V DATE: 08/04/2022 17:58 INDICATION: Surgery 6 weeks ago. Diabetes. Possible infection a below knee amputation. TECHNIQUE: AP and lateral views COMPARISON: None FINDINGS: Postoperative change from below knee amputation of tibia and fibula. No periosteal reaction or bone destruction is detected. No fracture or dislocation. Mild suprapatellar knee joint effusion is suggested. Stent is noted in the femoral artery. There is femoral and popliteal artery calcification. IMPRESSION: Status post below-knee amputation; no periosteal reaction or bone destruction is evident Suggestion of small suprapatellar knee joint effusion Femoral artery stent femoral and popliteal artery calcification Reviewed, dictated and finalized at location B. IMPRESSION: Status post below-knee amputation; no periosteal reaction or bone d estruction is evident Suggestion of small suprapatellar knee joint effusion Femoral artery stent femoral and popliteal artery calcification
[2022-08-04 16:29] LABS: Basophils Absolute Auto 0.1 K/mm3 (0.0-0.1); Basophils Percent Auto 0.5 % (0.2-1.2); Eosinophils Absolute Auto 0.3 K/mm3 (0-0.3); Hematocrit 31.1 % (42.0-52.0); Hemoglobin 9.5 g/dL (14.0-18.0); Immature Granulocyte Absolute 0.02 K/mm3 (0.00-0.031); Immature Granulocyte Percent A 0.2 % (0-0.5); Lymphocytes Absolute Auto 1.85 K/mm3 (0.9-3.2); Lymphocytes Percent Auto 19.7 % (18.3-44.2); Mean Corpuscular HGB Conc 30.5 g/dl (32-36); Mean Corpuscular Hemoglobin 31.1 pg (26-34); Mean Platelet Volume 10.7 fl (7.4-10.4); Monocytes Absolute Auto 0.6 K/mm3 (0.1-0.6); Monocytes Percent Auto 6.2 % (2.6-8.5); Neutrophils Absolute Auto 6.6 K/mm3 (1.3-6.7); Neutrophils Percent Auto 70.4 % (45.5-73.1); Platelet Count Result 206 k/mm3 (150-375); Red Blood Count 3.05 M/mm3 (4.6-6.20); Red Cell Distribution Width 15.8 % (11.5-14.5); White Blood Count 9.4 K/mm3 (4.5-10.0)
--- NOTE | 2022-08-04 16:35 | ED.SKABFB ---
HPI - Skin/Abscess/Foreign Bdy General Chief complaint: Skin/Abscess/Foreign Body Stated complaint: right amputee infection Time Seen by Provider: 08/04/22 16:07 History of Present Illness HPI narrative: Patient is a 62-year-old male with a history of diabetes, hypertension, recent right BKA presenting with concern for wound infection. Patient resides at a nursing facility and he was noted to be slightly more confused than normal during therapy. They examined his right BKA and noticed increased discharge so he was brought in for evaluation. He has not been on any antibiotics. Patient endorses intermittent pain related to the amputation but states it has not been getting worse. He denies complaints currently. Related Data Home Medications Medication Instructions Recorded Confirmed cyanocobalamin (vitamin B-12) 2,500 mcg PO DAILY 11/08/19 01/27/21 2,500 mcg tablet furosemide 40 mg tablet (Lasix) 40 mg PO QAM PRN edema 11/08/19 01/27/21 insulin syringe-needle U-100 11/14 #90 ea 03/05/20 01/27/21 mL 31 gauge x 15/64 nitroglycerin 0.4 mg sublingual 0.4 mg sublingual Q5M PRN Chest 03/05/20 01/27/21 tablet Pain pen needle, diabetic 31 gauge x #30 ea 03/05/20 01/27/2101/26 sodium chloride 0.65 % nasal spray 2 spray intranasal Q4H PRN Nasal 03/17/20 01/27/21 aerosol (Saline Nasal) Congestion aspirin 325 mg tablet,delayed 325 mg PO DAILY 06/19/20 01/27/21 release clopidogrel 75 mg tablet 75 mg PO DAILY 06/19/20 01/27/21 Allergies Allergy/AdvReac Type Severity Reaction Status Date / Time amoxicillin Allergy Severe shortness Verified 01/27/21 13:10 of breath Penicillins Allergy Severe Anaphylactic Verified 01/27/21 13:10 Shock trimethoprim Allergy Intermediate Unknown Verified 01/27/21 13:10 cefuroxime Allergy Unknown Verified 08/04/22 16:29 cephalexin Allergy Unknown Verified 08/04/22 16:29 clindamycin Allergy Unknown Verified 08/04/22 16:29 gabapentin Allergy Unknown Verified 08/04/22 16:29 Review of Systems Review of Systems: All systems reviewed & are unremarkable except as noted in HPI and below PMFSH Past Medical History Medical History (Updated 08/04/22 @ 20:53 by Vale Cao MD) ADHD (attention deficit hyperactivity disorder) Cellulitis of both feet Chronic kidney disease, stage 3 Baseline creatinine between 1.5 and 1.60. Chronic pain syndrome On long-term opiates. Coronary artery disease With history of stents. Degenerative disc disease Diabetic foot infection Gangrene of toe of right foot GERD (gastroesophageal reflux disease) History of DVT of lower extremity Hospital discharge follow-up Hyperlipidemia Hypertension Insulin dependent type 2 diabetes mellitus Myocardial infarction Osteoarthritis Peripheral arterial disease Status post right lower extremity revascularization per Dr. Altman. Shortness of breath on exertion Tobacco abuse Surgical History Surgical History H/O cardiac catheterization History of left-sided carotid endarterectomy History of revascularization procedure of lower extremity Right lower extremity angioplasty and stent per Dr. Hurt. Family History Family History Father , age 91 CAD Acute myocardial infarction Mother , age 85 CVA Cerebrovascular accident Other Family history of arthritis Family history of cardiovascular disease Family history of chronic obstructive pulmonary disease Family history of mental disorder Hypertension Social History Social History Social History: The patient lives in his own home in [place] with his cat. He designates his cousin Jaskaran Carr as his surrogate decision-maker and he wishes to be a full code. 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 He smokes between 5 and 20 cigarettes and 20 cigarettes/
[2022-08-04 16:36] LABS: Anion Gap 8 mmol/L (8-16); Blood Urea Nitrogen 35 mg/dL (9-20); Carbon Dioxide 22 mmol/L (22-30); Chloride 106 mmol/L (98-107); Estimated CRCL calculation 55 ml/min; Estimated Glomerular Filt Rate 44; Glucose 252 mg/dL (65-110); Potassium 5.1 mmol/L (3.4-5.0); Sodium 136 mmol/L (137-145)
[2022-08-04] MEDS: DOXYCYCLINE 100 MG/NS 100 ML 100 MG/100 ML BAG IVPB (19:35)
--- NOTE | 2022-08-04 19:35 | PC.NURSE ---
Unable to scan medication due to barcode not reading. Sherlyn MOJICA verified abx with this RN.
== END 2022-08-04 23:02 | disposition home or self-care (01) ==
PROVIDERS: Emergency Provider Emergency Medicine
DX: T87.43 Infection of amputation stump, right lower extremity (principal); E11.22 Type 2 diabetes mellitus with diabetic chronic kidney disease; I12.9 Hypertensive chronic kidney disease with stage 1 through stage 4 chronic kidney disease, or unspecified chronic kidney disease; N18.30 Chronic kidney disease, stage 3 unspecified; E11.51 Type 2 diabetes mellitus with diabetic peripheral angiopathy without gangrene; I73.9 Peripheral vascular disease, unspecified; I25.10 Atherosclerotic heart disease of native coronary artery without angina pectoris; I25.2 Old myocardial infarction; K21.9 Gastro-esophageal reflux disease without esophagitis; G89.4 Chronic pain syndrome; M19.90 Unspecified osteoarthritis, unspecified site; Z86.718 Personal history of other venous thrombosis and embolism; Z95.5 Presence of coronary angioplasty implant and graft; Z79.82 Long term (current) use of aspirin; Z79.4 Long term (current) use of insulin; F17.210 Nicotine dependence, cigarettes, uncomplicated
CPT/HCPCS: 36415; 73560; 80048; 85025; 96365; 96366; 99284

== ENCOUNTER 2023-06-16 23:33 | Observation (INO) | payer BC, SELFPAY ==
--- NOTE | ~2023-06-16 | CT_ITS ---
EXAMINATION: CTA brain carotid DATE: 06/17/2023 03:03 INDICATION: Left hand and thumb weakness. TECHNIQUE: Computed tomographic angiography (CTA) of the head was performed without and with 100 mL O mnipaque-350 intravenous contrast. CTA of the neck was performed with intravenous contrast. Automated exposure control and iterative reconstruction technique were employed. The dose-length product was 1 864.15 mGy-cm. Maximum intensity projection and volume rendered 3D-reconstructions were created by th latonya technologist on a separate workstation. COMPARISON: None. FINDINGS: HEAD CTA: There is no intracranial hemorrhage, acute infarction, or abnormal intracranial mass lesion . The ventricles are normal in size. The orbits are normal. The paranasal sinuses are clear. The mast oid air cells are normal. The vertebral arteries are codominant. There is no significant stenosis of basilar artery or the posterior cerebral arteries. There is no significant stenosis of the intracrani al internal carotid arteries or anterior or middle cerebral arteries. Anterior communicating artery i s normal. The posterior communicating arteries are normal. There is no aneurysm. NECK CTA: There are no pathologically enlarged lymph nodes. There is no significant stenosis of the v ertebral arteries. There is 61% stenosis of the proximal right internal carotid artery relative to no rmal distal artery lumen diameter (NASCET criteria). There is 27% stenosis of the proximal left inter nal carotid artery relative to normal distal artery lumen diameter. There is mild cervical spondylosi s. IMPRESSION: 1. Normal brain. No aneurysm or significant intracranial arterial stenosis. 2. 61% stenosis of the proximal right internal carotid artery relative to normal distal artery lumen diameter (NASCET criteria). 3. 27% stenosis of the proximal left internal carotid artery relative to normal distal artery lumen d iameter. Reviewed, dictated and finalized at location E. IMPRESSION: 1. Normal brain. No aneurysm or significant intracranial arterial stenosis. 2. 61% stenosis of the proximal right internal carotid artery relative to paola l distal artery lumen diameter (NASCET criteria). 3. 27% stenosis of the proximal left internal carotid artery relative to normal distal artery lumen diameter.
--- NOTE | ~2023-06-16 | MR_ITS ---
MRI of the brain Clinical History: Left hand weakness Technique: Axial and sagittal T1-weighted images were acquired. These were followed by axial diffusio n weighted, gradient, and FLAIR images. T2-weighted and postcontrast imaging were not performed due t o machine malfunction. Findings: There are multiple small focal areas of restricted diffusion in the right frontal and parie mima lobes, compatible small areas of acute infarct in the right MCA distribution. There are mild chronometer adjuster neelima white matter changes in the periventricular white matter otherwise. No intracranial hemorrhage id entified. No mass lesion identified. Ventricles and subarachnoid spaces are unremarkable. Orbits are unremarkable. Paranasal sinuses and m astoid air cells are clear. Sagittal midline structures are intact. IMPRESSION: Small focal areas of acute infarct in the right MCA distribution, involving the right frontal and par ietal lobes. No intracranial hemorrhage identified. Mild background chronic white matter changes. Reviewed, dictated and finalized at location . IMPRESSION: Small focal areas of acute infarct in the right MCA distribution, involving the right frontal and parietal lobes. No intracranial hemorrhage identified. Mild background chronic white matter changes.
--- NOTE | ~2023-06-16 | XR_ITS ---
EXAMINATION: XR chest 1V portable DATE: 06/17/2023 02:06 INDICATION: Left hand weakness TECHNIQUE: frontal view of the chest was obtained. COMPARISON: Chest radiograph dated 03/25/[address] dated 01/21/2020 FINDINGS: Unchanged left lower lobe linear discoid atelectasis/scarring at the left lung base. No new airspace opacities, pulmonary edema, pleural effusion or pneumothorax. The cardiomediastinal silhouette is nor mal. Visualized bones and soft tissues are unremarkable. IMPRESSION: 1. Stable appearance of mild chronic discoid atelectasis/scarring at the left lung base. No acute car diopulmonary disease. Reviewed, dictated and finalized at location A. IMPRESSION: 1. Stable appearance of mild chronic discoid atelectasis/scarring at the left l estelle base. No acute cardiopulmonary disease.
[2023-06-16 23:34] VITALS: BP 179/48; PULSE 77; RESP 21; TEMP 36.4; O2SAT 97
[2023-06-16 23:40] VITALS: PULSE 71
[2023-06-16 23:44] VITALS: O2SAT 98
[2023-06-16 23:45] VITALS: O2SAT 95
[2023-06-16 23:46] VITALS: BP 146/78; O2SAT 96
[2023-06-17] VITALS (43 sets, daily range): BP systolic 141–185; BP diastolic 48–108; PULSE 62–72; RESP 13–24; TEMP 35.7–36.4; O2SAT 91–99; BMI 35.1
--- NOTE | 2023-06-17 01:27 | ECG_ITS ---
Measurements Intervals [place] Rate: 69 P: 61 OR: 190 QRS: 55 QRSD: 102 T: 101 QT: 382 QTc: 409 Interpretive Statements SINUS RHYTHM POOR R-WAVE PROGRESSION, CANNOT RULE OUT AN OLD ANTERIOR MYOCARDIAL INFARCTION Q-WAVES IN LEAD 3 AND AVF, CANNOT RULE OUT AN OLD INFERIOR MYOCARDIAL INFARCTION , PROBABLY OLD [35 ms Q WAVE IN II/aVF] NO PREVIOUS ECG AVAILABLE FOR COMPARISON Electronically Signed On 06-17-2023 9:27:18 CDT by Shantelle Bustos M.D.
[2023-06-17 02:04] LABS: Glucose Point of Care 137 mg/dl (65-105)
[2023-06-17 02:24] LABS: Alanine Aminotransferase 24 U/L (6-50); Albumin Level 3.7 g/dL (3.5-5.1); Alkaline Phosphatase 70 U/L (38-126); Anion Gap 5 mmol/L (8-16); Aspartate Amino Transferase 21 U/L (17-59); Bilirubin,Total 0.4 mg/dL (0.2-1.3); Blood Urea Nitrogen 28 mg/dL (9-20); Calcium 9.2 mg/dL (8.4-10.2); Carbon Dioxide 23 mmol/L (22-30); Chloride 107 mmol/L (98-107); Estimated CRCL calculation 79 ml/min; Estimated Glomerular Filt Rate > 60; Glucose 131 mg/dL (65-110); Sodium 135 mmol/L (137-145)
[2023-06-17 02:33] LABS: Basophils Absolute Auto 0.1 K/mm3 (0.0-0.1); Basophils Percent Auto 0.6 % (0.2-1.2); Eosinophils Absolute Auto 0.2 K/mm3 (0-0.3); Eosinophils Percent Auto 1.6 % (0-4.4); Hematocrit 36.8 % (42.0-52.0); Hemoglobin 11.6 g/dL (14.0-18.0); Immature Granulocyte Absolute 0.05 K/mm3 (0.00-0.031); Immature Granulocyte Percent A 0.4 % (0-0.5); Lymphocytes Percent Auto 22.2 % (18.3-44.2); Mean Corpuscular HGB Conc 31.5 g/dl (32-36); Mean Corpuscular Hemoglobin 30.1 pg (26-34); Mean Corpuscular Volume 95.3 fl (80-100); Mean Platelet Volume 10.5 fl (7.4-10.4); Monocytes Absolute Auto 0.9 K/mm3 (0.1-0.6); Monocytes Percent Auto 7.6 % (2.6-8.5); Neutrophils Absolute Auto 7.9 K/mm3 (1.3-6.7); Neutrophils Percent Auto 67.6 % (45.5-73.1); Platelet Count Result 180 k/mm3 (150-375); Red Blood Count 3.86 M/mm3 (4.6-6.20); Red Cell Distribution Width 16.3 % (11.5-14.5); White Blood Count 11.7 K/mm3 (4.5-10.0)
[2023-06-17 02:35] LABS: Troponin I < 0.012 ng/mL (0.000-0.034)
--- NOTE | 2023-06-17 04:32 | ED.WEAKNESS ---
HPI - Weakness General Chief complaint: Weakness <Bibi Wiley MD - Last Filed: 06/17/23 07:36> Stated complaint: LEFT HAND WEAKNESS SINCE 0800 <Bibi Wiley MD - Last Filed: 06/17/23 07:36> Time Seen by Provider: 06/16/23 23:50 <Bibi Wiley MD - Last Filed: 06/17/23 07:36> History of Present Illness HPI Narrative: Patient with history of hypertension, diabetes, no prior history of stroke presents here with weakness to his left hand that he first noticed when he woke up this morning. He has no diminished sensation, no weakness or difficulty speaking or any other symptoms, other than this weakness to left hand. Has never had symptoms like this before. No sensation of [id number] or paresthesias or other symptoms. He tells me that overall his symptoms have started improving over the day compared to at time of onset <Bibi Wiley MD - Last Filed: 06/17/23 07:36> Related Data Home medications: Home Medications Medication Instructions Recorded Confirmed cyanocobalamin (vitamin B-12) 2,500 mcg PO DAILY 11/08/19 01/27/21 2,500 mcg tablet furosemide 40 mg tablet (Lasix) 40 mg PO QAM PRN edema 11/08/19 01/27/21 insulin syringe-needle U-100 11/14 #90 ea 03/05/20 01/27/21 mL 31 gauge x 15/64 nitroglycerin 0.4 mg sublingual 0.4 mg sublingual Q5M PRN Chest 03/05/20 01/27/21 tablet Pain pen needle, diabetic 31 gauge x #30 ea 03/05/20 01/27/21 3/16 sodium chloride 0.65 % nasal spray 2 spray intranasal Q4H PRN Nasal 03/17/20 01/27/21 aerosol (Saline Nasal) Congestion aspirin 325 mg tablet,delayed 325 mg PO DAILY 06/19/20 01/27/21 release clopidogrel 75 mg tablet 75 mg PO DAILY 06/19/20 01/27/21 <Bibi Wiley MD - Last Filed: 06/17/23 07:36> Allergies/Adverse reactions: Allergies Allergy/AdvReac Type Severity Reaction Status Date / Time amoxicillin Allergy Severe shortness Verified 01/27/21 13:10 of breath Penicillins Allergy Severe Anaphylactic Verified 01/27/21 13:10 Shock trimethoprim Allergy Intermediate Unknown Verified 01/27/21 13:10 cefuroxime Allergy Unknown Verified 08/04/22 16:29 cephalexin Allergy Unknown Verified 08/04/22 16:29 clindamycin Allergy Unknown Verified 08/04/22 16:29 gabapentin Allergy Unknown Verified 08/04/22 16:29 <Bibi Wiley MD - Last Filed: 06/17/23 07:36> Review of Systems Review of Systems: CONST: No fever. HEENT: No sore throat C/V: No chest pain RESP: No cough GI: No nausea or vomiting : No dysuria. M/S: Left hand weakness SKIN: No rash. NEURO: No headache, does have focal left hand weakness PSYCH: [No depression] <Bibi Wiley MD - Last Filed: 06/17/23 07:36> [facility] Past Medical History Medical History: Medical History (Updated 06/17/23 @ 07:36 by Bibi Wiley MD) ADHD (attention deficit hyperactivity disorder) Cellulitis of both feet Chronic kidney disease, stage 3 Baseline creatinine between 1.5 and 1.60. Chronic pain syndrome On long-term opiates. Coronary artery disease With history of stents. Degenerative disc disease Diabetic foot infection Gangrene of toe of right foot GERD (gastroesophageal reflux disease) History of DVT of lower extremity Hospital discharge follow-up Hyperlipidemia Hypertension Insulin dependent type 2 diabetes mellitus Myocardial infarction Osteoarthritis Peripheral arterial disease Status post right lower extremity revascularization per Dr. Altman. Shortness of breath on exertion Tobacco abuse <Bibi Wiley MD - Last Filed: 06/17/23 07:36> Surgical History Surgical History: Surgical History H/O cardiac catheterization History of left-sided carotid endarterectomy History of revascularization procedure of lower extremity Right lower extremity angioplasty and stent per Dr. Hurt. <Bibi Wiley MD - Last Filed: 06/17/23 07:36> Family History Family History: Family History (Reviewed 08/04/22
--- NOTE | 2023-06-17 07:13 | PC.NURSE ---
Called [facility], no one answered
--- NOTE | 2023-06-17 09:02 | PCPTNOTE ---
Patient has PT order, but will hold off until patient has a room.
[2023-06-17] MEDS: ASPIRIN 81 MG CHEWABLE TABLET 324 MG PO (09:21)
[2023-06-17 09:27] LABS: Glucose Point of Care 212 mg/dl (65-105)
--- NOTE | 2023-06-17 10:23 | WPDNEURCNPN ---
Assessment and Plan Assessment and plan (1) Left hand weakness: Code(s): R29.898 - Other symptoms and signs involving the musculoskeletal system Status: Acute (2) Dyslipidemia: Code(s): E78.5 - Hyperlipidemia, unspecified Status: Acute (3) Essential (primary) hypertension: Code(s): I10 - Essential (primary) hypertension Status: Acute (4) Insulin dependent type 2 diabetes mellitus: Code(s): E11.9 - Type 2 diabetes mellitus without complications; Z79.4 - longterm (current) use of insulin Status: Acute (5) Smoking: Code(s): F17.200 - Nicotine dependence, unspecified, uncomplicated Status: Acute Plan Noel Rodriguez is a 63 year old male with a history of hypertension, diabetes, CKD, PAD, prior CT presenting with weakness of the left hand. Continues to have left hand weakness, although improved. Given risk factors, concern for possible stroke. Also considering peripheral etiology such as myelopathy/radiculopathy, or compressive neuropathy. - MRI brain without contrast - Surface echocardiogram - LDL, A1c - Continue aspirin and plavix - If MRI brain is negative, will obtain MRI C-spine. If that is unrevealing, will need outpatient EMG/NCS Consult date: 06/17/23 Reason for consult: L hand weakness HPI: Noel Rodriguez is a 63 year old male with a history of hypertension, diabetes, CKD, PAD, prior CT presenting with weakness of the left hand. Patient first noted his symptoms when he woke up in the morning yesterday. He had weakness limited to the left hand only, without involvement of the left lower extremity or facial droop. No vision or speech concerns. No sensory changes. Symptoms had gradually improved although were still present by the time he got to the emergency department. On arrival his EKG showed normal sinus rhythm. Blood pressure was in the 160-170s systolic. CTA brain/carotid did not show any acute findings, but did show 61% stenosis of the proximal R ICA and 27% stenosis of the proximal L ICA. His medication list includes aspirin and Plavix. He doesn't have any recent LDL or A!C. Review of Systems Constitutional: Constitutional: Denies chills, Denies fever(s) and Denies weight loss Eyes: Eyes: Denies diplopia and Denies loss of vision ENT: Denies dizziness, Denies hearing loss and Denies tinnitus Cardiovascular: Cardiovascular: Denies chest pain, Denies syncope and Denies dyspnea Respiratory: Respiratory: Reports cough, Denies dyspnea and Reports wheezing Gastrointestinal: Gastrointestinal: Denies abdominal pain, Denies change in bowel habits and Denies vomiting Genitourinary: Genitourinary: Denies urinary incontinence Musculoskeletal: Musculoskeletal: Denies arthralgias and Denies joint swelling Integumentary/Breasts: Skin/Breast: Denies new lesions and Denies rash Neurologic: Reports as per HPI, Denies dizziness, Denies syncope and Denies loss of vision Psychiatric: Psychiatric: Denies anxiety and Denies depression Endocrine: Endocrine: Denies cold intolerance and Denies heat intolerance Hematologic/Lymphatic: Hematologic/Lymphatic: Denies easy bleeding and Denies easy bruising Allergic/Immunologic: Allergic/Immunologic: Denies no additional allergic/immunologic complaints and Denies wheezing PMFSH Past Medical History Medical History ADHD (attention deficit hyperactivity disorder) Cellulitis of both feet Chronic kidney disease, stage 3 Baseline creatinine between 1.5 and 1.60. Chronic pain syndrome On long-term opiates. Coronary artery disease With history of stents. Degenerative disc disease Diabetic foot infection Gangrene of toe of right foot GERD (gastroesophageal reflux disease) History of DVT of lower extremity Hospital discharge follow-up Hyperlipidemia Hypertension Insulin dependent type 2 diabetes mellitus Myocardial infarction Osteoarthritis Peripheral arterial dise
--- NOTE | 2023-06-17 10:56 | ADMGEN ---
This patient, Noel Rodriguez, was admitted to [facility] Room 326-01. Patient/family oriented to hospital policies and general routines including ID bracelet, bed and alarms, visiting hours, pain management, procedures, bathroom and other care routines, personal items, smoking policy, room service/diet, and visiting hours. Information on how to activate the Rapid Response Team has been discussed. Patient/Family are encouraged to report perceived risks to care and to ask questions if they do not understand what they are told or what they should do.
[2023-06-17 11:56] LABS: Glucose Point of Care 224 mg/dl (65-105)
--- NOTE | 2023-06-17 12:51 | PM.IMHP ---
H&P: HPI History of Present Illness Date/Time: 06/17/23 12:51 Chief Complaint: Left hand weakness Narrative: This is a 63-year-old male patient who has a history of diabetes and hypertension. The patient came to the emergency room with complaints of weakness to his left hand that he 1st noticed when he woke up yesterday morning. He had no difficulty speaking or any other symptoms. Just weakness to the left hand. The patient was able to talk okay without difficulty. His symptoms did start to improve over the day compared to what the symptoms are when he 1st woke up. He has left arm weakness but has regular movement to his left leg and he has right [id number] amputation. The patient states that [facility] and he is trying to use his prosthesis. He resides at [facility]. EKG was read as a sinus rhythm poor R-wave progression. Chest x-ray was read as?Stable appearance of mild chronic discoid atelectasis/scarring at the left lung base. No acute cardiopulmonary disease. Head and neck CTA read as the following. Normal brain. No aneurysm or significant intracranial arterial stenosis. 2. 61% stenosis of the proximal right internal carotid artery relative to normal distal artery lumen diameter (NASCET criteria). 3. 27% stenosis of the proximal left internal carotid artery relative to normal distal artery lumen diameter. MRI was read asSmall focal areas of acute infarct in the right MCA distribution, involving the right frontal and parietal lobes. No intracranial hemorrhage identified. Mild background chronic white matter changes. Neurology has been consulted. White count 11.7. H&H is 11.6 and 36.8. Sodium 135. Glucose 131. Troponin negative. The patient was given an aspirin in the emergency room. The patient is being admitted to observation status on the date of service of 06/17/2023. Review of Systems Review of Systems: All systems reviewed & are unremarkable except as noted in HPI and below Constitutional: Constitutional: Reports as per HPI and Reports no additional constitutional complaints Eyes: Eyes: Reports as per HPI and Reports no additional eye complaints ENT: Reports system reviewed and no additional complaints, except as documented and Reports Normal hearing present Cardiovascular: Cardiovascular: Reports no additional cardiovascular complaints Respiratory: Respiratory: Reports no additional respiratory complaints and Reports no additional respiratory complaints Gastrointestinal: Gastrointestinal: Reports as per HPI and Reports no additional gastrointestinal complaints Musculoskeletal: Musculoskeletal: Reports no additional musculoskeletal complaints Integumentary/Breasts: Skin/Breast: Reports system reviewed and no additional complaints, except as docu and Reports as per HPI Neurologic: Reports system reviewed and no additional complaints, except as documented, Reports as per HPI and Reports Normal hearing present Psychiatric: Psychiatric: Reports no additional psychiatric complaints and Reports as per HPI Endocrine: Endocrine: Reports no additional endocrine complaints Hematologic/Lymphatic: Hematologic/Lymphatic: Reports no additional hematologic/lymphatic complaints Allergic/Immunologic: Allergic/Immunologic: Reports no additional allergic/immunologic complaints [facility] Past Medical History Medical History (Updated 06/17/23 @ 17:15 by Silvia Saldivar NP) ADHD (attention deficit hyperactivity disorder) Cellulitis of both feet Chronic kidney disease, stage 3 Baseline creatinine between 1.5 and 1.60. Chronic pain syndrome On long-term opiates. Coronary artery disease With history of stents. Degenerative disc disease Diabetic foot infection Gangrene of toe of right foot GERD (gastroesophageal reflux disease) History of DVT of lower extremity Hospital discharge follow-up Hyperlipidemia Hypertension Insulin dependent type 2 diabetes mellitus Myocardial infarction Osteoarthritis Per
[2023-06-17] MEDS: CODEINE SULFATE (*CRX) 30 MG TABLET 60 MG PO ×2 (14:26→21:03)
[2023-06-17] MEDS: ACETAMINOPHEN 325 MG TABLET PO (14:26)
[2023-06-17] MEDS: ATORVASTATIN 40 MG TABLET BY MOUTH (14:27)
[2023-06-17] MEDS: lisinopriL 10 MG TABLET BY MOUTH (14:27)
[2023-06-17] MEDS: METOPROLOL SUCCINATE EXT REL 25 MG TABCR BY MOUTH (14:28)
[2023-06-17 16:39] LABS: Glucose Point of Care 181 mg/dl (65-105)
[2023-06-17 20:47] LABS: Glucose Point of Care 239 mg/dl (65-105)
[2023-06-17] MEDS: IPRATROPIUM BR 0.02% INH SOLN 0.5 MG/2.5 ML VIAL INHALATION (21:16)
[2023-06-17] MEDS: ALBUTEROL SULFATE NEB 2.5 MG/3 ML INH INHALATION (21:16)
[2023-06-17] MEDS: SALINE 0.65% NAS SOLN 44 ML BTL 2 SPRAY NASAL (22:41)
[2023-06-17] MEDS: CALCIUM CARBONATE (TUMS) 500 MG (200 MG ELEMENTAL) PO (23:18)
[2023-06-18] VITALS (18 sets, daily range): BP systolic 167–192; BP diastolic 52–62; PULSE 55–74; RESP 14–20; TEMP 36.4–36.6; O2SAT 92–98
[2023-06-18 04:24] LABS: Glucose Point of Care 191 mg/dl (65-105)
[2023-06-18] MEDS: ONDANSETRON INJ 4 MG/2 ML VIAL IV PUSH ×2 (04:26→19:02)
[2023-06-18 06:32] LABS: Basophils Percent Auto 0.4 % (0.2-1.2); Eosinophils Absolute Auto 0.1 K/mm3 (0-0.3); Eosinophils Percent Auto 0.7 % (0-4.4); Hematocrit 36.4 % (42.0-52.0); Hemoglobin 11.3 g/dL (14.0-18.0); Immature Granulocyte Absolute 0.05 K/mm3 (0.00-0.031); Immature Granulocyte Percent A 0.4 % (0-0.5); Lymphocytes Absolute Auto 1.52 K/mm3 (0.9-3.2); Lymphocytes Percent Auto 13.4 % (18.3-44.2); Mean Corpuscular Hemoglobin 30.2 pg (26-34); Mean Corpuscular Volume 97.3 fl (80-100); Mean Platelet Volume 10.3 fl (7.4-10.4); Monocytes Absolute Auto 0.9 K/mm3 (0.1-0.6); Monocytes Percent Auto 7.5 % (2.6-8.5); Neutrophils Absolute Auto 8.8 K/mm3 (1.3-6.7); Neutrophils Percent Auto 77.6 % (45.5-73.1); Platelet Count Result 176 k/mm3 (150-375); Red Blood Count 3.74 M/mm3 (4.6-6.20); Red Cell Distribution Width 16.2 % (11.5-14.5); White Blood Count 11.3 K/mm3 (4.5-10.0)
[2023-06-18 06:45] LABS: Anion Gap 3 mmol/L (8-16); Blood Urea Nitrogen 19 mg/dL (9-20); Calcium 8.9 mg/dL (8.4-10.2); Carbon Dioxide 28 mmol/L (22-30); Chloride 106 mmol/L (98-107); Estimated CRCL calculation 79 ml/min; Estimated Glomerular Filt Rate > 60; Glucose 210 mg/dL (65-110); Magnesium 1.5 mg/dL (1.6-2.3); Potassium 3.9 mmol/L (3.4-5.0); Sodium 137 mmol/L (137-145)
[2023-06-18 07:21] LABS: Hemoglobin A1C 7.1 % (<5.7)
[2023-06-18 07:43] LABS: Glucose Point of Care 206 mg/dl (65-105)
[2023-06-18] MEDS: IPRATROPIUM BR 0.02% INH SOLN 0.5 MG/2.5 ML VIAL INHALATION ×4 (07:50→20:03)
[2023-06-18] MEDS: ALBUTEROL SULFATE NEB 2.5 MG/3 ML INH INHALATION ×4 (07:50→20:03)
[2023-06-18] MEDS: METOPROLOL SUCCINATE EXT REL 25 MG TABCR BY MOUTH (08:32)
[2023-06-18] MEDS: CYANOCOBALAMIN 500 MCG TABLET 2500 MCG PO (08:32)
[2023-06-18] MEDS: CALCIUM CARBONATE (TUMS) 500 MG (200 MG ELEMENTAL) PO ×2 (08:32→14:55)
[2023-06-18] MEDS: GLIMEPIRIDE 2 MG TABLET 4 MG PO (08:32)
[2023-06-18] MEDS: lisinopriL 10 MG TABLET BY MOUTH (08:33)
[2023-06-18] MEDS: ATORVASTATIN 40 MG TABLET BY MOUTH (08:33)
[2023-06-18] MEDS: ASPIRIN 325 MG ENTERIC TABLET PO (08:35)
[2023-06-18] MEDS: INSULIN ASPART (*BKC) 100 UNITS/ML SUB-Q ×2 (08:35→12:03)
[2023-06-18 09:15] LABS: Cholesterol 128 mg/dL (0-200); HDL Direct 24 mg/dL; Triglycerides 133 mg/dL (<150)
[2023-06-18 09:26] LABS: LDL Cholesterol Direct 62 mg/dL
[2023-06-18] MEDS: MAGNESIUM SULF 1 GM/D5W 100 ML 1 GM/100 ML BAG IVPB (09:50)
--- NOTE | 2023-06-18 11:04 | WPDNEUROPN ---
Progress Note: A&P Assessment and Plan (1) CVA (cerebral vascular accident): Code(s): I63.9 - Cerebral infarction, unspecified Status: Acute (2) Left hand weakness: Code(s): R29.898 - Other symptoms and signs involving the musculoskeletal system Status: Acute (3) Dyslipidemia: Code(s): E78.5 - Hyperlipidemia, unspecified Status: Acute (4) Tobacco abuse: Code(s): Z72.0 - Tobacco use Status: Acute (5) Essential (primary) hypertension: Code(s): I10 - Essential (primary) hypertension Status: Acute (6) Insulin dependent type 2 diabetes mellitus: Code(s): E11.9 - Type 2 diabetes mellitus without complications; Z79.4 - long term care phlebotomist (current) use of insulin Status: Acute Plan Noel Rodriguez is a 63 year old male with a history of hypertension, diabetes, CKD, PAD, prior [place] presenting with weakness of the left hand. Continues to have left hand weakness, although improved. MRI brain showed acute strokes in the R MCA territory. No evidence of intracranial atherosclerosis, but he does have 61% stenosis in the proximal R ICA, which is likely the etiology. - Surface echocardiogram - Continue aspirin and plavix x 3 months, then aspirin monotherapy - Continue Lipitor 80mg daily - Discussed importance of smoking cessation - Since stroke is ipsilateral to significant carotid stenosis, he will need to be evaluated by vascular surgery as outpatient, ideally within the next 2 weeks Subjective Date/time seen: 06/18/23 11:04 Interval history: Noel Rodriguez is a 63 year old male with a history of hypertension, diabetes, CKD, PAD, prior [place] presenting with weakness of the left hand. Patient first noted his symptoms when he woke up in the morning yesterday. He had weakness limited to the left hand only, without involvement of the left lower extremity or facial droop. No vision or speech concerns. No sensory changes. Symptoms had gradually improved although were still present by the time he got to the emergency department. On arrival his EKG showed normal sinus rhythm. Blood pressure was in the 160-170s systolic. CTA brain/carotid did not show any acute findings, but did show 61% stenosis of the proximal R ICA and 27% stenosis of the proximal L ICA. His medication list includes aspirin. He has had surgery in the past for the left carotid artery stenosis. MRI brain showed acute infarcts in the R MCA territory. LDL is 62. A1c is 7.1. Patient reports smoking daily. Review of Systems Constitutional: Constitutional: Denies chills, Denies fever(s) and Denies weight loss Eyes: Eyes: Denies diplopia and Denies loss of vision ENT: Denies dizziness, Denies hearing loss and Denies tinnitus Cardiovascular: Cardiovascular: Denies chest pain, Denies syncope and Denies dyspnea Respiratory: Respiratory: Reports cough, Denies dyspnea and Reports wheezing Gastrointestinal: Gastrointestinal: Denies abdominal pain, Denies change in bowel habits and Denies vomiting Genitourinary: Genitourinary: Denies urinary incontinence Musculoskeletal: Musculoskeletal: Denies arthralgias and Denies joint swelling Integumentary/Breasts: Skin/Breast: Denies new lesions and Denies rash Neurologic: Reports as per HPI, Denies dizziness, Denies syncope and Denies loss of vision Psychiatric: Psychiatric: Denies anxiety and Denies depression Endocrine: Endocrine: Denies cold intolerance and Denies heat intolerance Hematologic/Lymphatic: Hematologic/Lymphatic: Denies easy bleeding and Denies easy bruising Allergic/Immunologic: Allergic/Immunologic: Denies no additional allergic/immunologic complaints and Denies wheezing Exam Const: General: comfortable and no acute distress HENMT: Mouth: Yes moist mucous membranes Eyes: Pupils: Equal, round and reactive pupils present EOM: EOMs intact bilaterally Resp: Effort & Inspection: normal respiratory effort Skin: General skin exam: normal color Anamika
[2023-06-18 11:34] LABS: Glucose Point of Care 223 mg/dl (65-105)
--- NOTE | 2023-06-18 11:57 | PM.IMPN ---
Progress Note: A&P Assessment and Plan (1) CVA (cerebral vascular accident): Code(s): I63.9 - Cerebral infarction, unspecified Status: Acute Assessment and Plan: Small focal areas of acute infarct in the right MCA distribution, involving the right frontal and parietal lobes. No intracranial hemorrhage identified. Mild background chronic white matter changes Head/Neck CTA 06/17/23 06:33 IMPRESSION: 1. Normal brain. No aneurysm or significant intracranial arterial stenosis. 2. 61% stenosis of the proximal right internal carotid artery relative to normal distal artery lumen diameter (NASCET criteria). 3. 27% stenosis of the proximal left internal carotid artery relative to normal distal artery lumen diameter. Appreciate neurology input. Patient started on aspirin and Plavix per Neurology recommendation. Will increase statin to max dose. Check lipid panel. - Since stroke is ipsilateral to significant carotid stenosis, he will need to be evaluated by vascular surgery as outpatient, ideally within the next 2 weeks (2) Dyslipidemia: Code(s): E78.5 - Hyperlipidemia, unspecified Status: Acute Assessment and Plan: Continue with atorvastatin (3) Tobacco abuse: Code(s): Z72.0 - Tobacco use Status: Acute Assessment and Plan: Encouraged the patient to stop smoking. Smoking cessation information was given to the patient. (4) Diabetic peripheral neuropathy: Code(s): E11.42 - Type 2 diabetes mellitus with diabetic polyneuropathy Status: Acute Assessment and Plan: Continue to keep blood sugars under control. Accu-Cheks AC and HS with sliding scale insulin. Check A1c, continue with Amaryl. Blood sugars in the 200s. Continue with home medications of codeine sulfate. (5) Chronic kidney disease (CKD) stage G3a/A2, moderately decreased glomerular filtration rate (GFR) between 45-59 mL/min/1.73 square meter and albuminuria creatinine ratio between 30-299 mg/g: Code(s): N18.3 - Chronic kidney disease, stage 3 (moderate) Status: Acute Assessment and Plan: Monitor BMP (6) Essential (primary) hypertension: Code(s): I10 - Essential (primary) hypertension Status: Acute Assessment and Plan: Continue with metoprolol and lisinopril. Subjective Date/time seen: 06/18/23 11:57 Interval history: No weakness Review of Systems Constitutional: Constitutional: Denies chills, Denies fever(s) and Denies weight loss Eyes: Eyes: Denies diplopia and Denies loss of vision ENT: Denies dizziness, Denies hearing loss and Denies tinnitus Cardiovascular: Cardiovascular: Denies chest pain, Denies syncope and Denies dyspnea Respiratory: Respiratory: Reports cough, Denies dyspnea and Reports wheezing Gastrointestinal: Gastrointestinal: Denies abdominal pain, Denies change in bowel habits and Denies vomiting Genitourinary: Genitourinary: Denies urinary incontinence Musculoskeletal: Musculoskeletal: Denies arthralgias and Denies joint swelling Integumentary/Breasts: Skin/Breast: Denies new lesions and Denies rash Neurologic: Reports as per HPI, Denies dizziness, Denies syncope and Denies loss of vision Psychiatric: Psychiatric: Denies anxiety and Denies depression Endocrine: Endocrine: Denies cold intolerance and Denies heat intolerance Hematologic/Lymphatic: Hematologic/Lymphatic: Denies easy bleeding and Denies easy bruising Allergic/Immunologic: Allergic/Immunologic: Denies no additional allergic/immunologic complaints and Denies wheezing Exam Const: General: comfortable and no acute distress HENMT: Mouth: Yes moist mucous membranes Eyes: Pupils: Equal, round and reactive pupils present EOM: EOMs intact bilaterally Resp: Effort & Inspection: normal respiratory effort Skin: General skin exam: normal color Neuro: Other: Pupils equal and reactive bilaterally, EOMI, face symmetric, facial sensation intact, tongue p
[2023-06-18] MEDS: CODEINE SULFATE (*CRX) 30 MG TABLET 60 MG PO (16:02)
[2023-06-18] MEDS: ACETAMINOPHEN 325 MG TABLET PO (16:04)
[2023-06-18 16:47] LABS: Glucose Point of Care 194 mg/dl (65-105)
[2023-06-18] MEDS: METOPROLOL TARTRATE 25 MG TABLET PO (21:20)
[2023-06-18] MEDS: MELATONIN 5 MG TABLET PO (21:20)
[2023-06-18] MEDS: ATORVASTATIN 40 MG TABLET 80 MG BY MOUTH (21:20)
[2023-06-18 22:15] LABS: Glucose Point of Care 212 mg/dl (65-105)
[2023-06-19] VITALS (11 sets, daily range): BP systolic 159–160; BP diastolic 50–57; PULSE 58–80; RESP 14–18; TEMP 36.2–37.1; O2SAT 92–98
--- NOTE | 2023-06-19 | ECHO_ITS ---
Patient Info Name: Noel Rodriguez Age: 63 years : 1960 Gender: Male Ht: 71 in Wt: 252 lbs BSA: 2.43 m2 HR: 78 bpm BP: 167 / 52 mmHg Heart Rhythm: Sinus Rhythm Technical Quality: Fair Exam Date: 06/19/2023 4:15 PM Exam Location: [facility] Exam Room: [facility] Patient Status: Inpatient Admit Date: 06/17/2023 Staff Ordering Physician: Ariel Barbour MD Cushion Sewer: Gabriella Blakely RDCS Attending Provider: Ariel Barbour MD Referring Physician: Km HAY; Exam Type: CA echo doppler color flow Study Info Indications - cva Complete two-dimensional, color flow and Doppler transthoracic echocardiogram is performed. Summary 1. Complete two-dimensional, color flow and Doppler transthoracic echocardiogram is performed. 2. Left ventricular chamber dimension is normal. 3. Left ventricular systolic function is normal, estimated at 65-70%. 4. There is mild concentric increased left ventricular wall thickness. 5. The left ventricular diastolic function is grade I diastolic dysfunction. 6. E/e' 11 is mildly elevated. 7. Left atrial chamber dimension is mildly enlarged. 8. There is mild aortic valve sclerosis. 9. The mitral valve has moderately calcified annulus. 10. There is trace mitral valve regurgitation. 11. No pulmonary hypertension, estimated pulmonary arterial systolic pressure is 31 mmHg. Left Ventricle E/e' 11 is mildly elevated. Left ventricular chamber dimension is normal. Left ventricular systolic function is normal, estimated at 65-70%. There is mild concentric increased left ventricular wall thickness. The left ventricular diastolic function is grade I diastolic dysfunction. Right Ventricle Right ventricular chamber dimension is normal. Right ventricular systolic function is normal. Left Atria Left atrial chamber dimension is mildly enlarged. Right Atria Right atrial chamber dimension is normal. Aortic Valve The aortic valve is trileaflet. There is mild aortic valve sclerosis. There is no aortic valve stenosis. There is no aortic valve regurgitation. Pulmonic Valve There is no pulmonic regurgitation. Mitral Valve The mitral valve has moderately calcified annulus. There is no mitral valve stenosis. There is trace mitral valve regurgitation. Tricuspid Valve There is no tricuspid valve regurgitation. No pulmonary hypertension, estimated pulmonary arterial systolic pressure is 31 mmHg. Pericardium/Pleural There is no pericardial effusion. Inferior Vena Cava Normal inferior vena cava with >50% collapse upon inspiration consistent with normal right atrial pressure, 5 mmHg. Aorta The aortic root size at the sinus of Valsalva is normal. Left Ventricular Outflow Tract Name Value Normal LVOT 2D LVOT Diameter 2.1 cm LVOT Doppler LVOT Peak Gradient 4 mmHg LVOT Mean Gradient 2 mmHg LVOT VTI 24 cm LVOT VTI/AV VTI Ratio 0.8 LVOT Stroke Volume 87 ml LVOT CO 15.3 l/min LVOT CI 6.3 l/min/m2 Pulmonic Valve
[2023-06-19 08:12] LABS: Glucose Point of Care 256 mg/dl (65-105)
[2023-06-19] MEDS: ALBUTEROL SULFATE NEB 2.5 MG/3 ML INH INHALATION (09:05)
[2023-06-19] MEDS: IPRATROPIUM BR 0.02% INH SOLN 0.5 MG/2.5 ML VIAL INHALATION (09:06)
[2023-06-19] MEDS: CYANOCOBALAMIN 500 MCG TABLET 2500 MCG PO (09:35)
[2023-06-19] MEDS: lisinopriL 10 MG TABLET BY MOUTH (09:36)
[2023-06-19] MEDS: GLIMEPIRIDE 2 MG TABLET 4 MG PO (09:36)
[2023-06-19] MEDS: CLOPIDOGREL BISULFATE 75 MG TABLET PO (09:36)
[2023-06-19] MEDS: INSULIN ASPART (*BKC) 100 UNITS/ML SUB-Q ×3 (09:37→20:25)
--- NOTE | 2023-06-19 10:23 | PM.DS ---
DS: Admitting Diagnosis Discharge Date 06/19/2023 Admitting Diagnosis Left upper extremity weakness DS: Discharge Diagnosis Discharge Diagnosis (1) CVA (cerebral vascular accident): Code(s): I63.9 - Cerebral infarction, unspecified Status: Acute (2) Dyslipidemia: Code(s): E78.5 - Hyperlipidemia, unspecified Status: Acute (3) Coronary artery disease involving [place] coronary artery of [place] heart: Qualifiers: Associated angina: without angina Qualified Code(s): I25.10 - Atherosclerotic heart disease of [place] coronary artery without angina pectoris Code(s): I25.10 - Atherosclerotic heart disease of [place] coronary artery without angina pectoris Status: Acute (4) Essential (primary) hypertension: Code(s): I10 - Essential (primary) hypertension Status: Acute DS: Summary Hospital Course Hospital Course: Noel Rodriguez is a 63 year old male with a history of hypertension, diabetes, CKD, PAD, prior [place] presenting with weakness of the left hand. Continues to have left hand weakness, although improved. MRI brain showed acute strokes in the R MCA territory. No evidence of intracranial atherosclerosis, but he does have 61% stenosis in the proximal R ICA, which is likely the etiology. Neurology consulted. Appreciate their input. Will get an echocardiogram today. Continue aspirin and plavix x 3 months, then aspirin monotherapy. Continue Lipitor 80mg daily. Discussed importance of smoking cessation. Since stroke is ipsilateral to significant carotid stenosis, he will need to be evaluated by vascular surgery as outpatient, ideally within the next 2 weeks. Time Spent with Patient Time attestation: Total time spent providing and/or coordinating discharge services: DS: Data Data Completed and Pending Labs on day of discharge: Labs from last 24 hours 06/19/23 06/18/23 06/18/23 07:43 21:18 16:35 POC Capillary Glucose 256 H 212 H 194 H 06/18/23 11:29 POC Capillary Glucose 223 H Discharge Plan Discharge Consulting providers: Sharron Del Rio Discharging Clinician: Ariel Barbour Anticipated Discharge Date/Time: 06/19/23 10:21 Patient Disposition: Home, Self-Care Activity: no preference Diet: heart healthy Patient Instructions: Antibiotic Form, How to Stop Smoking (DC), How to Stop Smoking (GEN), Cigarette Smoking and Your Health (GEN) Stand Alone Forms: General Discharge Information Follow-up/Referrals: Ampadu,MD Chan [Primary Care Provider] - Sharron Del Rio MD [Physician] - Discharge Medications: New clopidogrel 75 mg Tablet 75 mg PO QAM Qty: 30 0RF metoprolol tartrate 25 mg Tablet 25 mg PO Q12HR Qty: 60 0RF aspirin 81 mg Tablet,Delayed Release (Dr/Ec) 81 mg PO QAM Qty: 30 0RF Continued (DME) insulin syringe-needle U-100 1/2 mL 31 gauge x 15/64 syringe See Rx Instructions .ROUTE .MEDSUPPLY Qty: 90 Rx Instructions: As directed (DME) pen needle, diabetic 31 gauge x 3/16 needle See Rx Instructions .ROUTE .MEDSUPPLY Qty: 30 Rx Instructions: As directed nitroglycerin 0.4 mg tablet, sublingual 0.4 mg sublingual Q5M PRN (Reason: Chest Pain) acetaminophen-codeine 300-60 mg tablet 1 tablet PO BID MDD 2 tablets 30 Days Qty: 60 2RF cyanocobalamin (vitamin B-12) 2,500 mcg Tablet 2,500 mcg PO DAILY cyclobenzaprine 10 mg tablet 10 mg PO TID PRN (Reason: muscle spasm) Qty: 20 0RF Saline Nasal 0.65 % Aerosol,[place] 2 spray INTRANASAL Q4H PRN (Reason: Nasal Congestion) polyethylene glycol 3350 [Miralax] 17 gram Powder In Packet 17 g PO QAM PRN (Reason: Constipation) 30 Days Qty: 30 0RF albuterol sulfate [Ventolin HFA] 90 mcg/actuation HFA aerosol inhaler 1 inhalation INHALATION Q4H PRN (Reason: shortness of breath) Qty: 6.7 0RF Patient Comments: Has not used since the summer (DME) BD Insulin Syringe (half unit) 0.3 mL 31 gauge x 5/16
[2023-06-19] MEDS: CYCLOBENZAPRINE HCL 10 MG TABLET PO ×2 (10:38→18:46)
[2023-06-19] MEDS: CODEINE SULFATE (*CRX) 30 MG TABLET 60 MG PO (10:38)
[2023-06-19] MEDS: ASPIRIN 81 MG ENTERIC TABLET PO (10:39)
[2023-06-19] MEDS: METOPROLOL TARTRATE 25 MG TABLET PO ×2 (10:39→20:32)
[2023-06-19 11:57] LABS: Glucose Point of Care 240 mg/dl (65-105)
[2023-06-19] MEDS: ACETAMINOPHEN 325 MG TABLET PO (18:46)
[2023-06-19] MEDS: ATORVASTATIN 40 MG TABLET 80 MG BY MOUTH (20:15)
[2023-06-19] MEDS: MELATONIN 5 MG TABLET PO (20:16)
[2023-06-19 20:24] LABS: Glucose Point of Care 304 mg/dl (65-105)
== END 2023-06-19 22:00 | disposition home or self-care (01) ==
LOC: ANHED 06-17 07:56 → ANH3MEDSUR 06-17 09:44
PROVIDERS: Nurse Practitioner; Admitting Provider Internal Medicine; Emergency Provider Emergency Medicine; PCP Internal Medicine; Visit Provider Hospitalist
DX: I63.9 Cerebral infarction, unspecified (principal); E78.5 Hyperlipidemia, unspecified; I12.9 Hypertensive chronic kidney disease with stage 1 through stage 4 chronic kidney disease, or unspecified chronic kidney disease; E11.22 Type 2 diabetes mellitus with diabetic chronic kidney disease; N18.30 Chronic kidney disease, stage 3 unspecified; N17.9 Acute kidney failure, unspecified; I25.10 Atherosclerotic heart disease of native coronary artery without angina pectoris; Z95.5 Presence of coronary angioplasty implant and graft; G89.4 Chronic pain syndrome; F90.9 Attention-deficit hyperactivity disorder, unspecified type; K21.9 Gastro-esophageal reflux disease without esophagitis; E87.1 Hypo-osmolality and hyponatremia; I25.2 Old myocardial infarction; J98.11 Atelectasis; I34.81 Nonrheumatic mitral (valve) annulus calcification; I35.8 Other nonrheumatic aortic valve disorders; R90.82 White matter disease, unspecified; E11.65 Type 2 diabetes mellitus with hyperglycemia; E11.51 Type 2 diabetes mellitus with diabetic peripheral angiopathy without gangrene; E11.42 Type 2 diabetes mellitus with diabetic polyneuropathy; R79.89 Other specified abnormal findings of blood chemistry; F17.210 Nicotine dependence, cigarettes, uncomplicated; F12.90 Cannabis use, unspecified, uncomplicated; Z86.718 Personal history of other venous thrombosis and embolism; Z79.82 Long term (current) use of aspirin; Z79.51 Long term (current) use of inhaled steroids; Z79.02 Long term (current) use of antithrombotics/antiplatelets; Z79.1 Long term (current) use of non-steroidal anti-inflammatories (NSAID); Z79.84 Long term (current) use of oral hypoglycemic drugs; Z79.4 Long term (current) use of insulin; Z79.891 Long term (current) use of opiate analgesic; Z79.899 Other long term (current) drug therapy; Z82.49 Family history of ischemic heart disease and other diseases of the circulatory system; Z82.3 Family history of stroke
CPT/HCPCS: 36415; 70496; 70498; 70551; 71045; 80048; 80053; 80061; 82948; 83036; 83735; 84443; 84484; 85025; 93005; 93306; 94640; 96365; 96375; 96376; 97110; 97112; 97161; 97165; 97530; 97535; 99285; A9270; G0378; G0379; J1815; J2405; J3475; Q9967

== ENCOUNTER 2023-07-09 03:02 | Emergency (ER) | payer BC, SELFPAY ==
[2023-07-09] VITALS (20 sets, daily range): BP systolic 159–173; BP diastolic 57–89; PULSE 55–68; RESP 11–19; TEMP 36.9; O2SAT 93–99
--- NOTE | ~2023-07-09 | XR_ITS ---
XR chest 1V portable DATE: 07/09/2023 03:26 INDICATION: Cough. Weakness. TECHNIQUE: Portable AP chest on 07/09/2023 at 0324 hours COMPARISON: 06/17/2023 portable AP chest at 0147 hours 03/25/2020 portable AP chest 01/21/2020 CT lung screening FINDINGS: Heart size appears within normal limits. Aortic arch calcification. No pulmonary infiltrate or consolidation, pleural effusion or pulmonary vascular congestion or pneum othorax is detected. There is calcification in the region of the right rotator cuff which may indicate rotator cuff calcif ic tendinitis. IMPRESSION: No active cardiopulmonary disease Aortic calcification Right rotator cuff calcific tendinitis is suggested Reviewed, dictated and finalized at location A.
--- NOTE | ~2023-07-09 | CT_ITS ---
EXAMINATION: CT cervical spine wo con DATE: 07/09/2023 04:51 INDICATION: Neck pain. TECHNIQUE: Computed tomography (CT) of the cervical spine was performed without intravenous contrast. Automated exposure control and iterative reconstruction technique were employed. The dose-length pro duct was 608.88 mGy-cm. COMPARISON: None FINDINGS: Bone alignment is normal. Vertebral body heights and intervertebral disc heights are normal . C1 ring is ununited posteriorly, a normal variant. The following disc levels are specifically discu ssed: C2-C3: There is no uncovertebral joint osteoarthritis. There is mild bilateral facet joint osteoarthr itis. There is no neural foraminal stenosis. There is no central canal stenosis. C3-C4: There is no uncovertebral joint osteoarthritis. There is mild left facet joint osteoarthritis. There is no neural foraminal stenosis. There is no central canal stenosis. C4-C5: There is no uncovertebral joint osteoarthritis. There is mild bilateral facet joint osteoarthr itis. There is no neural foraminal stenosis. There is no central canal stenosis. C5-C6: There is no uncovertebral joint osteoarthritis. There is mild bilateral facet joint osteoarthr itis. There is no neural foraminal stenosis. There is hypertrophy of the ligamentum flavum. There is mild central canal stenosis. C6-C7: There is mild left uncovertebral joint osteoarthritis. There is mild bilateral facet joint ost eoarthritis. There is mild left neural foraminal stenosis. There is no central canal stenosis. C7-T1: There is no uncovertebral joint osteoarthritis. There is mild bilateral facet joint osteoarthr itis. There is no neural foraminal stenosis. There is no central canal stenosis. IMPRESSION: 1. Mild cervical spondylosis. Reviewed, dictated and finalized at location E.
--- NOTE | 2023-07-09 03:08 | ECG_ITS ---
Measurements Intervals [place] Rate: 67 P: 73 [place]: 192 QRS: 50 QRSD: 91 T: 86 QT: 384 QTc: 407 Interpretive Statements SINUS RHYTHM WITH OCCASIONAL SUPRAVENTRICULAR PREMATURE COMPLEXES ANTERIOR MYOCARDIAL INFARCTION , OF INDETERMINATE AGE [40+ ms Q WAVE AND/OR ST/T ABNORMALITY IN V3/V4] POSSIBLE INFERIOR MYOCARDIAL INFARCTION , PROBABLY OLD [30 ms Q WAVE IN II/aVF] COMPARED TO ECG 06/17/2023 02:07:24 NO SIGNIFICANT CHANGES Electronically Signed On 07-09-2023 11:15:01 CDT by Ana Maria Thibodeaux MD
[2023-07-09] MEDS: HYDROcodone/acetaminophen (*CRX) 5-325 MG TABLET 1 TAB PO (03:26)
[2023-07-09] MEDS: ORPHENADRINE CITRATE 100 MG TABLET.ER PO (03:30)
[2023-07-09 03:40] LABS: Basophils Absolute Auto 0.1 K/mm3 (0.0-0.1); Basophils Percent Auto 0.6 % (0.2-1.2); Eosinophils Absolute Auto 0.3 K/mm3 (0-0.3); Hematocrit 37.9 % (42.0-52.0); Hemoglobin 11.9 g/dL (14.0-18.0); Immature Granulocyte Absolute 0.05 K/mm3 (0.00-0.031); Immature Granulocyte Percent A 0.4 % (0-0.5); Lymphocytes Absolute Auto 2.38 K/mm3 (0.9-3.2); Lymphocytes Percent Auto 19.1 % (18.3-44.2); Mean Corpuscular HGB Conc 31.4 g/dl (32-36); Mean Corpuscular Hemoglobin 30.6 pg (26-34); Mean Corpuscular Volume 97.4 fl (80-100); Mean Platelet Volume 11.3 fl (7.4-10.4); Monocytes Percent Auto 7.8 % (2.6-8.5); Neutrophils Absolute Auto 8.8 K/mm3 (1.3-6.7); Neutrophils Percent Auto 70.1 % (45.5-73.1); Platelet Count Result 241 k/mm3 (150-375); Red Blood Count 3.89 M/mm3 (4.6-6.20); Red Cell Distribution Width 15.7 % (11.5-14.5); White Blood Count 12.5 K/mm3 (4.5-10.0)
[2023-07-09 03:51] LABS: Alanine Aminotransferase 25 U/L (6-50); Alkaline Phosphatase 91 U/L (38-126); Anion Gap 0 mmol/L (8-16); Aspartate Amino Transferase 23 U/L (17-59); Bilirubin,Total 0.5 mg/dL (0.2-1.3); Blood Urea Nitrogen 36 mg/dL (9-20); Calcium 9.4 mg/dL (8.4-10.2); Carbon Dioxide 27 mmol/L (22-30); Chloride 105 mmol/L (98-107); Estimated CRCL calculation 68 ml/min; Estimated Glomerular Filt Rate 56; Glucose 165 mg/dL (65-110); Lactic Acid Reflex 1.2 mmol/L (0.7-2.0); Magnesium 1.8 mg/dL (1.6-2.3); Potassium 5.2 mmol/L (3.4-5.0); Sodium 132 mmol/L (137-145)
--- NOTE | 2023-07-09 03:58 | ED.GENADULT ---
HPI - General Adult General Chief complaint: Unspecified Stated complaint: weakness Time Seen by Provider: 07/09/23 03:07 History of Present Illness HPI narrative: Patient 63-year-old gentleman who presents the emergency department with chief complaint of neck pain. Patient reports that he has had generalized aching throughout his body and reports that he is also had a cough patient reports that he has pain in the posterior aspect of his neck on the left side worse with movement. Related Data Home Medications Medication Instructions Recorded Confirmed cyanocobalamin (vitamin B-12) 2,500 mcg PO DAILY 11/08/19 06/17/23 2,500 mcg tablet insulin syringe-needle U-100 11/14 #90 ea 03/05/20 06/17/23 mL 31 gauge x 15/64 nitroglycerin 0.4 mg sublingual 0.4 mg sublingual Q5M PRN Chest 03/05/20 06/17/23 tablet Pain pen needle, diabetic 31 gauge x #30 ea 03/05/20 06/17/23/16 sodium chloride 0.65 % nasal spray 2 spray intranasal Q4H PRN Nasal 03/17/20 06/17/23 aerosol (Saline Nasal) Congestion Allergies Allergy/AdvReac Type Severity Reaction Status Date / Time amoxicillin Allergy Severe shortness Verified 01/27/21 13:10 of breath Penicillins Allergy Severe Anaphylactic Verified 01/27/21 13:10 Shock trimethoprim Allergy Intermediate Unknown Verified 01/27/21 13:10 cefuroxime Allergy Unknown Verified 08/04/22 16:29 cephalexin Allergy Unknown Verified 08/04/22 16:29 clindamycin Allergy Unknown Verified 08/04/22 16:29 gabapentin Allergy Unknown Verified 08/04/22 16:29 [facility] Past Medical History Medical History (Updated 07/09/23 @ 06:55 by Toby Sargent MD) ADHD (attention deficit hyperactivity disorder) Cellulitis of both feet Chronic kidney disease, stage 3 Baseline creatinine between 1.5 and 1.60. Chronic pain syndrome On long-term opiates. Coronary artery disease With history of stents. Degenerative disc disease Diabetic foot infection Gangrene of toe of right foot GERD (gastroesophageal reflux disease) History of DVT of lower extremity Hospital discharge follow-up Hyperlipidemia Hypertension Insulin dependent type 2 diabetes mellitus Myocardial infarction Osteoarthritis Peripheral arterial disease Status post right lower extremity revascularization per Dr. Altman. Shortness of breath on exertion Tobacco abuse Surgical History Surgical History (Updated 06/17/23 @ 16:52 by Silvia Saldivar NP) H/O cardiac catheterization History of left-sided carotid endarterectomy History of revascularization procedure of lower extremity Right lower extremity angioplasty and stent per Dr. Hurt. Hx of right BKA Family History Family History Father , age 91 CAD Acute myocardial infarction Mother , age 85 CVA Cerebrovascular accident Other Family history of arthritis Family history of cardiovascular disease Family history of chronic obstructive pulmonary disease Family history of mental disorder Hypertension Social History Social History (Updated 06/17/23 @ 16:53 by Silvia Saldivar NP) Social History: The patient is currently at [facility]. He designates his cousin Jaskaran Carr as his surrogate decision-maker and he wishes to be a full code. 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 He smokes between 5 and 20 cigarettes and 20 cigarettes/day. No drug use. He has no children. He has never been . Smoking packs per day: 0.5 Smoking cigarettes per day: 10.0 Years smoked: 44 Smoking pack-years: 22.00 Smoking status: Current every day smoker Tobacco type: cigars Second hand tobacco smoke exposure: Yes Additional smoking assessment comments: patient stated i smoke one cigar every 6 hours Alcohol intake: former Substance use: current Substance use type: does not use Other substance usage details: tried marijuana for pain relief 03/16/2020
[2023-07-09 04:02] LABS: Troponin I < 0.012 ng/mL (0.000-0.034)
[2023-07-09 04:15] LABS: Influenza A QL RT-PCR Negative (Negative); Influenza B QL RT-PCR Negative (Negative); SARS-CoV-2 RNA PCR Negative (Negative)
[2023-07-09] MEDS: MAGNESIUM SULF 1 GM/D5W 100 ML 1 GM/100 ML BAG IVPB (04:21)
[2023-07-09 07:01] LABS: Appearance Urine Clear (Clear); Bacteria Urine None Seen /hpf; Bilirubin Urine Negative (Negative); Blood Urine Negative (Negative); Color Urine Yellow (Yellow); Glucose Urine UA Negative (Negative); Ketones Urine Negative (Negative); Leukocyte Esterase Ur Negative LEU/UL (Negative); Nitrate Urine Negative (Negative); Non Pathogenic Casts 0-2; Protein Urine Trace mg/dL (Negative); RBC Urine 0-2 /hpf (0-2); Specific Grav Ur 1.014 (1.001-1.035); Squamous Epithelial Cell Urine None seen /hpf (Few); Urobilinogen Urine 0.2 mg/dL (<2.0); WBC Urine 0-5 /hpf; pH Urine 5.5 (5.0-9.0)
--- NOTE | 2023-07-09 07:09 | PC.NURSE ---
Patient care report called to ESHA Velez at [facility].
[2023-07-09 07:10] LABS: Add Urine Microscopic? YES
[2023-07-09 07:17] LABS: Troponin I < 0.012 ng/mL (0.000-0.034)
== END 2023-07-09 09:00 ==
PROVIDERS: Emergency Provider Emergency Medicine; PCP Internal Medicine
DX: M43.6 Torticollis (principal); I12.9 Hypertensive chronic kidney disease with stage 1 through stage 4 chronic kidney disease, or unspecified chronic kidney disease; E11.22 Type 2 diabetes mellitus with diabetic chronic kidney disease; N18.30 Chronic kidney disease, stage 3 unspecified; I25.2 Old myocardial infarction; I25.10 Atherosclerotic heart disease of native coronary artery without angina pectoris; F17.210 Nicotine dependence, cigarettes, uncomplicated; Z20.822 Contact with and (suspected) exposure to COVID-19
CPT/HCPCS: 36415; 71045; 72125; 80053; 81001; 81003; 83605; 83735; 84484; 85025; 87636; 93005; 96365; 99284; A9270; J3475

== ENCOUNTER 2023-11-14 13:20 | Observation (INO) | payer BC, SELFPAY ==
[2023-11-14] VITALS (10 sets, daily range): BP systolic 135–152; BP diastolic 59–64; PULSE 66–96; RESP 15–97; TEMP 36.7; O2SAT 96–100
--- NOTE | ~2023-11-14 | XR_ITS ---
EXAMINATION: XR chest 1V portable Exam Date/Time: 11/14/2023 17:15 CAMPUS WELLNESS COORDINATOR HISTORY: cough, weakness, CHILLS Comparison: 07/09/2023. RESULT: Lines, tubes, and devices: None. Lungs and pleura: Linear scar in the left lung base, otherwise clear. Cardiomediastinal silhouette: Stable. Other: No acute osseous or upper abdominal finding. Moderate right AC joint and glenohumeral osteoar thritis. Calcific tendinitis in the right shoulder. IMPRESSION: No acute cardiopulmonary process. Reviewed, dictated and finalized at location K. US WELLNESS COORDINATOR
--- NOTE | ~2023-11-14 | MR_ITS ---
EXAMINATION: MR brain/brain stem wo/w con DATE: 11/17/2023 09:15 INDICATION: Vertigo. Post fall TECHNIQUE: Magnetic resonance imaging (MRI) of the brain and brainstem was performed without and with 20 mL Multihance intravenous contrast. Sequences included sagittal and axial T1-weighted SE, axial d iffusion-weighted FS SE, axial 3D SWAN, axial T2-weighted FLAIR, and axial T2-weighted FSE. Postcontr ast axial and coronal T1-weighted SE was obtained. Apparent diffusion coefficient (ADC) maps were cre ated. COMPARISON: CT dated 11/14/2023 and brain MR dated 09/17/2023 FINDINGS: Unchanged small focus of chronic encephalomalacia likely sulcus in the left frontal lobe. Additional small old lacunar infarct at the posterior limb of the right internal capsule. Additional new small f ocus of encephalomalacia the site of a prior acute infarct on a gyrus in the right frontoparietal reg ion. Minimal signal loss on susceptibility weighted imaging at the sites of both infarcts consistent with associated secondary chronic microhemorrhage or laminar necrosis. There are no areas of restrict ed diffusion to suggest acute infarction. No other intracranial hemorrhage or abnormal intracranial m ass lesion. There are a few additional scattered foci of nonspecific increased T2-weighted signal int ensity in the cerebral white matter, predominantly involving the deep and periventricular white matte r which is within normal limits for age. There are no intraparenchymal signal abnormalities seen on t he other pulse sequences. The ventricles are symmetric and normal in size. There are no abnormal extr a-axial fluid collections. Flow voids are seen in the cerebral arteries on the T2-weighted sequences consistent with their expected patency. Trace bilateral mastoid effusions. Visualized orbits and soft tissues are unremarkable. There are no areas of abnormal enhancement on the post contrast images. IMPRESSION: 1. Small old infarcts in the left frontal lobe, right frontoparietal region and posterior limb of the right internal capsule. No acute intracranial process. 2. A few additional scattered small foci of nonspecific white matter T2 hyperintensity which is withi n normal limits for age and may represent sequela of chronic small vessel ischemic disease. Reviewed, dictated and finalized at location A. STOCK SALES REPRESENTATIVE IMPRESSION: 1. Small old infarcts in the left frontal lobe, right frontoparietal region and posterior limb of the right internal capsule. No acute intracranial process. 2. 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
--- NOTE | ~2023-11-14 | CT_ITS ---
EXAMINATION: CTA brain carotid DATE: 11/14/2023 18:42 INDICATION: vertigo, hx of tia TECHNIQUE: Computed tomographic angiography (CTA) of the head was performed without and with 100 mL O mnipaque-350 intravenous contrast. CTA of the neck was performed with intravenous contrast. Automated exposure control and iterative reconstruction technique were employed. The dose-length product was 1 680.68 mGy-cm. Maximum intensity projection and volume rendered 3D-reconstructions were created by e technologist on a separate workstation. COMPARISON: 06/17/2023; MR brain 06/17/2023. FINDINGS: CT BRAIN: No acute large vessel infarct, intracranial hemorrhage, mass, or hydrocephalus. Mild central atrophy. Small focus of encephalomalacia in the left frontal lobe. CTA HEAD: No large vessel occlusion, aneurysm, high flow vascular malformation, nidus or extravasation. Symmetr ic parenchymal enhancement. Patent cerebral veins. Atherosclerotic calcification of the bilateral cav ernous carotids without significant stenosis. CTA NECK: Aortic arch and proximal great vessels: Moderate arch calcification.i normal arch anatomy. Right common carotid, carotid bifurcation, and internal carotid artery: Calcified and noncalcified pl aque in the right common carotid artery, without significant stenosis. Calcification of the origin of the right common carotid, without significant stenosis..There is 64% stenosis of the proximal right internal carotid artery relative to normal distal artery lumen diameter (NASCET criteria). Left common carotid, carotid bifurcation, and internal carotid artery: Moderate stenosis from calcifi ed and noncalcified plaque at the origin of the left common carotid. Calcified and noncalcified plaqu es in the common carotid artery without significant stenosis. Calcified and noncalcified plaque at th e bifurcation with suggestion of ulceration.There is 40% stenosis of the proximal left internal carot id artery relative to normal distal artery lumen diameter (NASCET criteria). Vertebral arteries: No significant plaque or stenosis. Moderate calcified and noncalcified plaque at the origin of the left vertebral artery causing moderate stenosis. Small calcification without signif icant stenosis in the mid left vertebral artery. Other findings: None. IMPRESSION: No large vessel occlusion. 40% stenosis of the proximal left internal carotid artery with plaque ulceration. 64% stenosis of the proximal right internal carotid artery. Reviewed, dictated and finalized at location K. PRESS OPERATOR IMPRESSION: No large vessel occlusion. 40% stenosis of the proximal left internal carotid artery with plaque ulceratio n. 64% stenosis of the proximal right internal carotid artery.
--- NOTE | ~2023-11-14 | CT_ITS ---
EXAMINATION: CT thoracic lumbar wo con DATE: 11/14/2023 18:34 INDICATION: fall . TECHNIQUE: Computed tomography (CT) of the thoracic and lumbar spine was performed without intravenou s contrast. Automated exposure control and iterative reconstruction technique were employed. The dose -length product was 2163.57 mGy-cm. COMPARISON: CT lung screening 01/21/2020. FINDINGS: THORACIC SPINE: Vertebral body alignment intact. Vertebral body heights preserved. Multilevel moderate degenerative d isc disease. No severe central canal or neural foraminal narrowing. Mild central canal narrowing at T 11-12 secondary to a posteriorly directed osteophyte. No traumatic malalignment or fracture. Granulom atous calcifications. Coronary artery, aortic valve, and mitral calcification. Decreased blood pool d ensity as can be seen with anemia. Emphysematous change. Basilar scar. Scattered groundglass opacitie s in the lungs. LUMBAR SPINE: 5 nonrib-bearing lumbar-type vertebral bodies. Pedicles intact. Normal vertebral body alignment. Vert ebral body heights preserved, with mild anterior wedge deformity at T12 and L1, stable since the comp arison. Multilevel moderate degenerative disc disease. Multilevel mild facet arthropathy. Severe cent ral canal stenosis at L3-4 secondary to degenerative disc and facet changes. Multilevel moderate bila teral neural foraminal narrowing. Right renal atrophy. Pancreatic calcifications as can be seen with chronic pancreatitis. Nonobstructing left renal calcifications. Atherosclerotic aortic and abdominal arterial calcifications IMPRESSION: No acute fracture or traumatic malalignment in the thoracic or lumbar spine. Pulmonary opacities may represent edema or infection. Severe central canal stenosis at L3-4 secondary to degenerative disc and facet changes. Reviewed, dictated and finalized at location K. TRACER
--- NOTE | ~2023-11-14 | CT_ITS ---
EXAMINATION: CT cervical spine wo con DATE: 11/14/2023 18:34 INDICATION: fall TECHNIQUE: Computed tomography (CT) of the cervical spine was performed without intravenous contrast. Automated exposure control and iterative reconstruction technique were employed. The dose-length pro duct was 591.06 mGy-cm. COMPARISON: 07/09/2023. FINDINGS: Vertebral Body Alignment: Intact. Craniocervical and atlantoaxial alignment: Moderate degenerative change. Alignment intact. Osseous structures/fracture: No evidence of a lytic or blastic process in the visualized spine. No e vidence of acute fracture. Unfused C1 posterior arch. Cervical soft tissues: The paraspinal soft tissues planes are maintained. Degenerative changes: Degenerative changes, without severe neural foraminal or central canal narrowin g. Mild central canal stenosis at C5 secondary to ligamentum flavum ossification. IMPRESSION: No acute fracture or traumatic malalignment in the cervical spine. Reviewed, dictated and finalized at location K. CIPAL PROGRAMMER
[2023-11-14 17:03] LABS: Basophils Absolute Auto 0.1 K/mm3 (0.0-0.1); Basophils Percent Auto 0.5 % (0.2-1.2); Eosinophils Absolute Auto 0.2 K/mm3 (0-0.3); Eosinophils Percent Auto 1.4 % (0-4.4); Hematocrit 30.7 % (42.0-52.0); Hemoglobin 9.2 g/dL (14.0-18.0); Immature Granulocyte Absolute 0.11 K/mm3 (0.00-0.031); Lymphocytes Absolute Auto 1.92 K/mm3 (0.9-3.2); Lymphocytes Percent Auto 17.8 % (18.3-44.2); Mean Corpuscular Hemoglobin 29.1 pg (26-34); Mean Corpuscular Volume 97.2 fl (80-100); Mean Platelet Volume 10.7 fl (7.4-10.4); Monocytes Absolute Auto 0.7 K/mm3 (0.1-0.6); Monocytes Percent Auto 6.3 % (2.6-8.5); Neutrophils Absolute Auto 7.9 K/mm3 (1.3-6.7); Platelet Count Result 285 k/mm3 (150-375); Red Blood Count 3.16 M/mm3 (4.6-6.20); Red Cell Distribution Width 16.1 % (11.5-14.5); White Blood Count 10.8 K/mm3 (4.5-10.0)
[2023-11-14 17:10] LABS: Alanine Aminotransferase 33 U/L (6-50); Albumin Level 3.4 g/dL (3.5-5.1); Alkaline Phosphatase 90 U/L (38-126); Anion Gap 6 mmol/L (8-16); Aspartate Amino Transferase 22 U/L (17-59); Bilirubin,Total 0.3 mg/dL (0.2-1.3); Blood Urea Nitrogen 40 mg/dL (9-20); Calcium 8.7 mg/dL (8.4-10.2); Carbon Dioxide 22 mmol/L (22-30); Chloride 107 mmol/L (98-107); Estimated Glomerular Filt Rate 41; Glucose 241 mg/dL (65-110); Potassium 5.3 mmol/L (3.4-5.0); Sodium 135 mmol/L (137-145)
--- NOTE | 2023-11-14 17:59 | ECG_ITS ---
Measurements Intervals Galt Rate: 81 P: 70 MD: 186 QRS: 58 QRSD: 96 T: 94 QT: 341 QTc: 398 Interpretive Statements SINUS RHYTHM INFERIOR INFARCT, AGE INDETERMINATE CONSIDER ANTERIOR INFARCT, AGE INDETERMINATE ST-T WAVE ABNORMALITY IN HIGH LATERAL LEADS- CONSIDER ISCHEMIA ABNORMAL ECG COMPARED TO ECG 07/09/2023 03:19:48 ST-T WAVE ABNORMALITY NOW PRESENT Electronically Signed On 11-15-2023 7:40:05 POSITION DESCRIPTION MANAGER by Monico Guerra D.O.
--- NOTE | 2023-11-14 18:00 | ED.RECABL ---
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 Patient states he was recently told that he had a white blood cell count of 17. He had these labs drawn 8 days ago. He states he was told today to come to the ER for further evaluation, however he is unable to tell me who told him this and who alfredo his labs. He is also stating that he has had intermittent dizziness for the past 3 weeks. States it feels like he is spinning and he has had multiple falls since the onset of these symptoms. He is unable to identify any aggravating or Alleviating factors, however states he has associated nausea when he feels dizzy. He normally ambulates with a wheelchair, however states he has had episodes wrist fallen out of his wheelchair and bed. He states his last fall was 2 days ago. Patient reports every time has a vertigo episode of falls, he never hit his head or lose consciousness. He does state that he has back pain which she believes is from a fall when he tried to catch himself on a machine a few days ago. He is unable to provide details of the event. The patient is a poor historian. He denies chest pain, shortness of breath, cough or congestion, otalgia, abdominal pain, nausea, vomiting, diarrhea, dysuria or hematuria, vision changes, focal numbness or weakness, syncope, Headache. <Jacklyn Peng PA-C - Last Filed: 11/14/23 22:02> Related Data Home Medications: Home Medications Medication Instructions Recorded Confirmed cyanocobalamin (vitamin B-12) 2,500 mcg PO DAILY 11/08/19 06/17/23 2,500 mcg tablet insulin syringe-needle U-100 11/14 #90 ea 03/05/20 06/17/23 mL 31 gauge x 15/64 nitroglycerin 0.4 mg sublingual 0.4 mg sublingual Q5M PRN Chest 03/05/20 06/17/23 tablet Pain pen needle, diabetic 31 gauge x #30 ea 03/05/20 06/17/23 3/16 sodium chloride 0.65 % nasal spray 2 spray intranasal Q4H PRN Nasal 03/17/20 06/17/23 aerosol (Saline Nasal) Congestion <Jacklyn Peng PA-C - Last Filed: 11/14/23 22:02> Allergies/Adverse Reactions: Allergies Allergy/AdvReac Type Severity Reaction Status Date / Time amoxicillin Allergy Severe shortness Verified 01/27/21 13:10 of breath Penicillins Allergy Severe Anaphylactic Verified 01/27/21 13:10 Shock trimethoprim Allergy Intermediate Unknown Verified 01/27/21 13:10 cefuroxime Allergy Unknown Verified 08/04/22 16:29 cephalexin Allergy Unknown Verified 08/04/22 16:29 clindamycin Allergy Unknown Verified 08/04/22 16:29 gabapentin Allergy Unknown Verified 08/04/22 16:29 <Jacklyn Peng PA-C - Last Filed: 11/14/23 22:02> Review of Systems Review of Systems: CONSTITUTIONAL: Denies fever, chills, or sweats. EYES: Denies visual changes, redness, or discharge. ENT: Denies rhinorrhea, congestion, sore throat, or otalgia. CARDIOVASCULAR: Denies chest pain, palpitations, or edema. RESPIRATORY: Denies cough or dyspnea. GASTROINTESTINAL: Denies abdominal pain, nausea, vomiting, or diarrhea. GENITOURINARY: Denies dysuria or hematuria. SKIN: Denies rash or itching. MUSCULOSKELETAL: See HPI NEUROLOGIC: see HPI PSYCHIATRIC: Denies anxiety or depression. <Jacklyn Peng PA-C - Last Filed: 11/14/23 22:02> PMFSH Past Medical History Medical History: Medical History ADHD (attention deficit hyperactivi
--- NOTE | 2023-11-14 18:45 | PC.NURSE ---
Pt returned to room [address]
[2023-11-14 18:47] LABS: Partial Thromboplastin Time 32.4 SECONDS (22.3-36.8); Prothrombin Time 13.7 Seconds (11.1-14.7)
[2023-11-14 18:55] LABS: Troponin I < 0.012 ng/mL (0.000-0.034)
[2023-11-14 19:26] LABS: Appearance Urine Clear (Clear); Bilirubin Urine Negative (Negative); Blood Urine Negative (Negative); Color Urine Yellow (Yellow); Glucose Urine UA Negative (Negative); Ketones Urine Negative (Negative); Leukocyte Esterase Ur Negative LEU/UL (Negative); Nitrate Urine Negative (Negative); Protein Urine Negative (Negative); Specific Grav Ur 1.016 (1.001-1.035); Urobilinogen Urine 0.2 mg/dL (<2.0); pH Urine 5.5 (5.0-9.0)
[2023-11-14 19:54] LABS: Add Urine Microscopic? NO
[2023-11-14 20:11] LABS: Magnesium 2.1 mg/dL (1.6-2.3)
[2023-11-14] MEDS: ALBUTEROL SULFATE NEB 2.5 MG/3 ML INH INHALATION (20:20)
[2023-11-14 20:25] LABS: Glucose Point of Care 173 mg/dl (65-105)
[2023-11-14] MEDS: SODIUM BICARBONATE 8.4% 50 MEQ/50 ML SYRINGE IV PUSH (20:27)
[2023-11-14] MEDS: INSULIN HUMAN REGULAR (*BKC) 100 UNITS/ML 10 UNITS IV PUSH (20:27)
[2023-11-14] MEDS: DEXTROSE 50% 25 GM/50 ML SYRINGE IV PUSH (20:27)
[2023-11-14] MEDS: LACTATED RINGERS 1,000 ML 999 ML IV CONT (20:27)
[2023-11-14 20:52] LABS: Creatine Kinase 85 U/L (55-170)
[2023-11-14 21:04] LABS: NT Pro B Type Natriuretic Pept 790 pg/mL (19.9-100)
[2023-11-14 22:19] LABS: Glucose Point of Care 159 mg/dl (65-105)
--- NOTE | 2023-11-14 22:19 | PM.IMHP ---
H&P: HPI History of Present Illness Date/Time: 11/14/23 22:19 Chief Complaint: Patient came to the ER for evaluation with the multiple complaints as well as dizziness/vertigo Narrative: Our patient is a 63 years old poor historian with chronic medical issues who came to the ER with multiple complaints. Meds please see the ER provider note below: HPI narrative as per ED provider: ? 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 cardia stent placement, peripheral arterial disease, s/p right BKA, insulin-dependent type 2 diabetes, CKD reports for evaluation for multiple complaints.? Patient states he was recently told that he had a white blood cell count of 17.? He had these labs drawn 8 days ago.? He states he was told today to come to the ER for further evaluation, however he is unable to tell me who told him this? and who alfredo his labs.? He is also stating that he has had intermittent dizziness for the past 3 weeks.? States it feels like he is spinning and he has had? multiple falls since the onset of these symptoms.? He is unable to identify any aggravating or ? Alleviating factors, however states he has associated nausea when he feels dizzy. He normally ambulates with a wheelchair, however states he has had episodes wrist fallen out of his wheelchair and bed.? He states his last fall was 2 days ago.? Patient reports every time has a vertigo episode of falls, he never hit his head or lose consciousness.? He does state that he has back pain which she believes is from a fall when he tried to catch himself on a machine a few days ago.? He is unable to provide details of the event.? The patient is a poor historian.? He denies chest pain, shortness of breath, cough or congestion, otalgia, abdominal pain, nausea, vomiting, diarrhea, dysuria or hematuria, vision changes, focal numbness or weakness, syncope,? Headache. He is also complaining of dizziness/vertigo symptoms with intermittent episodes of head spinning and multiple falls as described above. He was was worked up in the ER. He has a history of prior CVA 5 months ago for which she was worked up and treated in our hospital. CTA head and neck done today showed 40% stenosis of the proximal left internal carotid artery with plaque ulceration and 64% stenosis of the proximal right internal carotid artery. Given his symptoms, Neurology was contacted by ER physician and he is being placed under observation for tele monitoring, neurology evaluation and further workup. He was also found to be dehydrated with the SIM and mild hyperkalemia which was addressed in the ER. Review of Systems Review of Systems: 14 systems were reviewed with pertinent positives and negatives per HPI. Except as documented in the HPI/progress notes, all other systems were reviewed and are negative. All systems reviewed & are unremarkable except as noted in HPI and below PMFSH Past Medical History Medical History ADHD (attention deficit hyperactivity disorder) Cellulitis of both feet Chronic kidney disease, stage 3 Baseline creatinine between 1.5 and 1.60. Chronic pain syndrome On long-term opiates. Coronary artery disease With history of stents. Degenerative disc disease Diabetic foot infection Gangrene of toe of right foot GERD (gastroesophageal reflux disease) History of DVT of lower extremity Hospital discharge follow-up Hyperlipidemia Hypertension Insulin dependent type 2 diabetes mellitus Myocardial infarction Osteoarthritis Peripheral arterial disease Status post right lower extremity revascularization per Dr. Altman. Shortness of breath on exertion Tobacco abuse Surgical History Surgical History H/O cardiac catheterization History of left-sided carotid endarterectomy History of revascularization procedure of lower extremity Right lower extremity angiopl
[2023-11-14 23:11] LABS: Influenza A QL RT-PCR Negative (Negative); Influenza B QL RT-PCR Negative (Negative); RSV RNA, RT-PCR Negative (Negative); SARS-CoV-2 RNA PCR Negative (Negative)
[2023-11-15] VITALS (12 sets, daily range): BP systolic 148–179; BP diastolic 50–81; PULSE 66–93; RESP 14–20; TEMP 36.1–37.1; O2SAT 97–98; BMI 39.9
--- NOTE | 2023-11-15 01:41 | ADMGEN ---
This patient, Noel Rodriguez, was admitted to [facility] Surg Room 331-02. Patient/family oriented to hospital policies and general routines including ID bracelet, bed and alarms, visiting hours, pain management, procedures, bathroom and other care routines, personal items, smoking policy, room service/diet, and visiting hours. Information on how to activate the Rapid Response Team has been discussed. Patient/Family are encouraged to report perceived risks to care and to ask questions if they do not understand what they are told or what they should do.
[2023-11-15 05:04] LABS: Basophils Percent Auto 0.5 % (0.2-1.2); Eosinophils Absolute Auto 0.1 K/mm3 (0-0.3); Eosinophils Percent Auto 0.8 % (0-4.4); Hematocrit 26.9 % (42.0-52.0); Hemoglobin 8.2 g/dL (14.0-18.0); Immature Granulocyte Absolute 0.07 K/mm3 (0.00-0.031); Immature Granulocyte Percent A 0.8 % (0-0.5); Lymphocytes Absolute Auto 1.81 K/mm3 (0.9-3.2); Lymphocytes Percent Auto 20.4 % (18.3-44.2); Mean Corpuscular HGB Conc 30.5 g/dl (32-36); Mean Corpuscular Hemoglobin 29.2 pg (26-34); Mean Corpuscular Volume 95.7 fl (80-100); Mean Platelet Volume 10.1 fl (7.4-10.4); Monocytes Absolute Auto 0.7 K/mm3 (0.1-0.6); Monocytes Percent Auto 7.4 % (2.6-8.5); Neutrophils Absolute Auto 6.2 K/mm3 (1.3-6.7); Neutrophils Percent Auto 70.1 % (45.5-73.1); Platelet Count Result 243 k/mm3 (150-375); Red Blood Count 2.81 M/mm3 (4.6-6.20); Red Cell Distribution Width 16.1 % (11.5-14.5); White Blood Count 8.9 K/mm3 (4.5-10.0)
[2023-11-15 05:07] LABS: Potassium 5.1 mmol/L (3.4-5.0)
[2023-11-15 05:11] LABS: Magnesium 1.9 mg/dL (1.6-2.3)
[2023-11-15 05:15] LABS: Anion Gap 6 mmol/L (8-16); Blood Urea Nitrogen 28 mg/dL (9-20); Calcium 8.4 mg/dL (8.4-10.2); Carbon Dioxide 23 mmol/L (22-30); Chloride 109 mmol/L (98-107); Estimated CRCL calculation 65 ml/min; Estimated Glomerular Filt Rate 51; Glucose 178 mg/dL (65-110); Potassium 5.1 mmol/L (3.4-5.0); Sodium 138 mmol/L (137-145)
[2023-11-15 06:23] LABS: Folic Acid 7.5 ng/mL (2.76->20); Vitamin B12 > 1000.0 pg/mL (239-931)
[2023-11-15 07:51] LABS: Glucose Point of Care 177 mg/dl (65-105)
--- NOTE | 2023-11-15 08:11 | PM.IMPN ---
Progress Note: A&P Assessment and Plan (1) Dizziness: Code(s): R42 - Dizziness and giddiness Status: Acute (2) Normocytic anemia: Code(s): D64.9 - Anemia, unspecified Status: Acute Assessment and Plan: Hemoglobin 8.2/ stable -continue to monitor H&H q 6 hours x2 (3) Hyperkalemia: Code(s): E87.5 - Hyperkalemia Status: Acute Assessment and Plan: mild 5.1 denies any chest pain -continue telemetry monitoring -repeat labs in the a.m (4) Dyslipidemia: Code(s): E78.5 - Hyperlipidemia, unspecified Status: Acute (5) Tobacco abuse: Code(s): Z72.0 - Tobacco use Status: Acute (6) Diabetic peripheral neuropathy: Code(s): E11.42 - Type 2 diabetes mellitus with diabetic polyneuropathy Status: Acute (7) Chronic kidney disease (CKD) stage G3a/A2, moderately decreased glomerular filtration rate (GFR) between 45-59 mL/min/1.73 square meter and albuminuria creatinine ratio between 30-299 mg/g: Code(s): N18.3 - Chronic kidney disease, stage 3 (moderate) Status: Acute (8) Coronary artery disease involving twenty-nine palms coronary artery of twenty-nine palms heart: Qualifiers: Associated angina: without angina Qualified Code(s): I25.10 - Atherosclerotic heart disease of twenty-nine palms coronary artery without angina pectoris Code(s): I25.10 - Atherosclerotic heart disease of twenty-nine palms coronary artery without angina pectoris Status: Acute (9) Essential (primary) hypertension: Code(s): I10 - Essential (primary) hypertension Status: Acute (10) Herniated thoracic disc without myelopathy: Code(s): M51.24 - Other intervertebral disc displacement, thoracic region Status: Acute (11) Peripheral vascular disease: Code(s): I73.9 - Peripheral vascular disease, unspecified Status: Acute (12) Hypertension: Qualifiers: Hypertension type: unspecified Qualified Code(s): I10 - Essential (primary) hypertension Code(s): I10 - Essential (primary) hypertension Status: Acute (13) Peripheral arterial disease: Code(s): I73.9 - Peripheral vascular disease, unspecified Status: Acute (14) Insulin dependent type 2 diabetes mellitus: Code(s): E11.9 - Type 2 diabetes mellitus without complications; Z79.4 - retirement (current) use of insulin Status: Acute Assessment and Plan: -continue glucose management q.4 hours per protocol -continue insulin 30 units b.i.d. with meals (15) SIM (acute kidney injury): Code(s): N17.9 - Acute kidney failure, unspecified Status: Acute Assessment and Plan: - continue IV hydration -recheck labs in the a.m. Plan -continue cardiac telemetry monitoring CTA head and neck ordered which showed 40% stenosis of the proximal left internal carotid artery with plaque ulceration & 64% stenosis of the proximal right internal carotid artery - continue Neurovascular checks ordered every 4 hours as per TIA/stroke protocol -Patient had SIM with the mild hyperkalemia for which he was given 1 L Ringer's lactate IV solution Patient received IV sodium bicarbonate, D50 and insulin for mild hyperkalemia correction Strict input and output monitoring will plan to dispo to SNF tomorrow Continue with home meds. Monitor patient closely while admitted. Patient will require close follow up with PCP/specialists as an outpatient to address chronic medical issues. Repeat labs in a.m. -continue Electrolyte replacement as per protocol. Subjective Date/time seen: 11/15/23 08:11 Interval history: Chief Complaint: Patient came to the ER for evaluation with the multiple complaints as well as dizziness/vertigo Narrative: Our patient is a 63 years old poor historian with chronic medical issues who came to the ER with multiple complaints.? Meds please see the ER provider note below: HPI narrative as per ED provider: ? 63-year-old male wi
[2023-11-15] MEDS: PREGABALIN (*CRX) 75 MG CAPSULE 150 MG PO ×3 (08:46→17:15)
[2023-11-15] MEDS: METOPROLOL TARTRATE 25 MG TABLET PO ×2 (08:47→20:57)
[2023-11-15] MEDS: SENNA/DOCUSATE SODIUM TABLET 1 TAB PO (08:47)
[2023-11-15] MEDS: MAGNESIUM OXIDE 400 MG TABLET PO (08:47)
[2023-11-15] MEDS: buPROPion HCL SR (12HR) 100 MG TABCR PO (08:47)
[2023-11-15] MEDS: TAMSULOSIN HCL 0.4 MG CAPSULE PO (08:48)
[2023-11-15] MEDS: CYANOCOBALAMIN 1,000 MCG TABLET 2000 MCG PO (08:48)
[2023-11-15] MEDS: CYANOCOBALAMIN 500 MCG TABLET PO (08:48)
[2023-11-15] MEDS: lisinopriL 10 MG TABLET BY MOUTH (08:48)
[2023-11-15] MEDS: ASPIRIN 81 MG ENTERIC TABLET PO (08:54)
--- NOTE | 2023-11-15 10:11 | WPDNEURCNPN ---
Consult date: 11/15/23 HPI: Noel Rodriguez is a 63 year old maleComes to the emergency room for multiple complaints in addition to the history of increased white blood cell count which was drawn about 8 days ago in addition he complained of intermittent dizziness over the last 3 weeks describing as if he is spinning and also with multiple falls without any history of aggravating or alleviating factors associated with nausea and dizziness and also with history that he normally ambulates with a wheelchair in the past he has had falls from the chair with information that lost fall was about 2 days ago he has ongoing history of cerebrovascular accident about 6 months ago with residual left-sided weakness, history of cardiac stent placement, history of peripheral arterial disease, and history of right [id number] amputation in addition to the insulin dependent type 2 diabetes mellitus he gave no history of any other associated complaints of chest pain his outpatient medications included vitamin supplements along with the insulin and also history of being allergic to multiple medications. He does have ongoing history of ADHD, chronic pain syndrome, GERD, hypertension, hyperlipidemia, in addition diabetes mellitus the also undergone left-sided carotid endarterectomy in addition to revascularization procedure of the lower extremity that is angioplasty. His currently everyday smoker with history of smoking pack year 0.5 uses smoked 44 and also history of formerly alcohol intake his recent lab revealed him to have anemia with hemoglobin 8.2, potassium 5.1 with BUN 28 creatinine 1.4 and GFR of 51 glucose 178, serology negative for influenza a B RSV and COVID, head and neck CTA with 40% stenosis of proximal left internal carotid artery with plaque ulceration and 64 stenosis of the proximal right internal carotid artery, CT scan of the thoracic and lumbar spine revealed severe central canal stenosis at L3-4 secondary to degenerative disc disease and facet changes and cervical spine CT scan negative. [facility] Past Medical History Medical History ADHD (attention deficit hyperactivity disorder) Cellulitis of both feet Chronic kidney disease, stage 3 Baseline creatinine between 1.5 and 1.60. Chronic pain syndrome On long-term opiates. Coronary artery disease With history of stents. Degenerative disc disease Diabetic foot infection Gangrene of toe of right foot GERD (gastroesophageal reflux disease) History of DVT of lower extremity Hospital discharge follow-up Hyperlipidemia Hypertension Insulin dependent type 2 diabetes mellitus Myocardial infarction Osteoarthritis Peripheral arterial disease Status post right lower extremity revascularization per Dr. Anupama. Shortness of breath on exertion Tobacco abuse Surgical History Surgical History H/O cardiac catheterization History of left-sided carotid endarterectomy History of revascularization procedure of lower extremity Right lower extremity angioplasty and stent per Dr. Hurt. Hx of right BKA Family History Family History Father , age 91 CAD Acute myocardial infarction Mother , age 85 CVA Cerebrovascular accident Other Family history of arthritis Family history of cardiovascular disease Family history of chronic obstructive pulmonary disease Family history of mental disorder Hypertension Social History Social History Social History: The patient is currently at [facility]. He designates his cousin Jaskaran Carr as his surrogate decision-maker and he wishes to be a full code. 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 He smokes between 5 and 20 cigarettes and 20 cigarettes/day. No drug use. He has no children. He has never been . Smoking packs
[2023-11-15] MEDS: LACTATED RINGERS 1,000 ML 75 ML IV CONT (11:13)
--- NOTE | 2023-11-15 11:43 | PCPTNOTE ---
Attempted PT evaluation, pt refusing to participate at this time. RN present during refusal.
[2023-11-15 12:02] LABS: Glucose Point of Care 208 mg/dl (65-105)
--- NOTE | 2023-11-15 12:12 | WPDNEURCNPN ---
Assessment and Plan Assessment and plan (1) CVA (cerebral vascular accident): Code(s): I63.9 - Cerebral infarction, unspecified Status: Acute (2) Dizziness: Code(s): R42 - Dizziness and giddiness Status: Acute Plan 1. Considering the results of the CTA that is 64% stenosis of proximal right internal carotid artery and 40% stenosis of left internal carotid artery he will benefit from the referral to the vascular surgeon on ongoing basis while he continues taking 1 aspirin 81mg daily and Plavix 75mg daily for the next 6 weeks. 2. Recurrent complaint of dizziness and falls are related to autonomic dysfunction on the basis of the diabetes mellitus all the pros and cons discussed. Consult date: 11/15/23 HPI: Noel Rodriguez is a 63 year old male Comes to the emergency room for multiple complaints in addition to the history of increased white blood cell count which was drawn about 8 days ago in addition he complained of intermittent dizziness over the last 3 weeks describing as if he is spinning and also with multiple falls without any history of aggravating or alleviating factors associated with nausea and dizziness and also the history that he normally ambulates with wheelchair in the past she has had falls from the chair with information that last fall was about 2 days ago. He has ongoing history of cerebrovascular accident about 6 months ago with residual left-sided weakness, history of cardiac stent placement, history of peripheral arterial disease, and history of the right umgkl-[id number]-[id number] amputation in addition to the insulin dependent type 2 diabetes mellitus. He gave no history of any other associated complaints of chest pain. His outpatient medications included vitamin supplements along with the insulin also history of being allergic to multiple medication he does have ongoing history of ADHD, chronic pain syndrome, GERD, hypertension, hyperlipidemia, in addition diabetes mellitus he also undergone left-sided carotid endarterectomy in addition to the revascularization procedure of the lower extremities that is angioplasty his currently everyday smoker with history of smoking pack years 0.5 and also history of formally alcohol intake his recent lab revealed him to have anemia with hemoglobin 8.2 potassium 5.1 BUN 28 creatinine 1.4 GFR 51 glucose 178 serology negative for influenza a and B, RSV, COVID, head and neck CTA with 40% stenosis proximal left internal carotid artery with plaque ulceration 64% stenosis of proximal right internal carotid artery, she scan of thoracic and lumbar spine reveals severe central canal stenosis at L3-4 secondary to degenerative disc disease and facet changes cervical spine CT scan negative. Review of Systems Review of Systems: All systems reviewed & are unremarkable except as noted in HPI and below PMFSH Past Medical History Medical History ADHD (attention deficit hyperactivity disorder) Cellulitis of both feet Chronic kidney disease, stage 3 Baseline creatinine between 1.5 and 1.60. Chronic pain syndrome On long-term opiates. Coronary artery disease With history of stents. Degenerative disc disease Diabetic foot infection Gangrene of toe of right foot GERD (gastroesophageal reflux disease) History of DVT of lower extremity Hospital discharge follow-up Hyperlipidemia Hypertension Insulin dependent type 2 diabetes mellitus Myocardial infarction Osteoarthritis Peripheral arterial disease Status post right lower extremity revascularization per Dr. Altman. Shortness of breath on exertion Tobacco abuse Surgical History Surgical History H/O cardiac catheterization History of left-sided carotid endarterectomy History of revascularization procedure of lower extremity Right lower extremity angioplasty and stent per Dr. Hurt. Hx of right BKA Family History Family History (Reviewed 0
--- NOTE | 2023-11-15 13:06 | PCSTNOTE ---
Please refer to the Bedside Swallow Evaluation in the EMR. Please note, silent aspiration cannot be ruled out at bedside.
[2023-11-15 16:19] LABS: Glucose Point of Care 190 mg/dl (65-105)
[2023-11-15] MEDS: INSULIN ASPART (*BKC) 100 UNITS/ML 17 UNITS SUB-Q (17:13)
[2023-11-15] MEDS: INSULIN GLARGINE (*BKC) 100 UNITS/ML 30 UNITS SUB-Q (18:24)
[2023-11-15 20:17] LABS: Glucose Point of Care 143 mg/dl (65-105)
[2023-11-15] MEDS: MELATONIN 5 MG TABLET 10 MG BY MOUTH (20:57)
[2023-11-15] MEDS: diphenhydrAMINE HCl CAP 25 MG CAPSULE 50 MG PO (21:43)
[2023-11-16] VITALS (11 sets, daily range): BP systolic 144–187; BP diastolic 40–67; PULSE 58–71; RESP 14–24; TEMP 35.9–36.3; O2SAT 96–100
[2023-11-16 06:49] LABS: Basophils Percent Auto 0.4 % (0.2-1.2); Eosinophils Absolute Auto 0.1 K/mm3 (0-0.3); Eosinophils Percent Auto 1.3 % (0-4.4); Hematocrit 27.7 % (42.0-52.0); Hemoglobin 8.6 g/dL (14.0-18.0); Immature Granulocyte Absolute 0.06 K/mm3 (0.00-0.031); Immature Granulocyte Percent A 0.7 % (0-0.5); Lymphocytes Absolute Auto 1.65 K/mm3 (0.9-3.2); Lymphocytes Percent Auto 19.4 % (18.3-44.2); Mean Corpuscular Hemoglobin 29.6 pg (26-34); Mean Corpuscular Volume 95.2 fl (80-100); Mean Platelet Volume 10.6 fl (7.4-10.4); Monocytes Absolute Auto 0.7 K/mm3 (0.1-0.6); Monocytes Percent Auto 8.5 % (2.6-8.5); Neutrophils Percent Auto 69.7 % (45.5-73.1); Platelet Count Result 242 k/mm3 (150-375); Red Blood Count 2.91 M/mm3 (4.6-6.20); Red Cell Distribution Width 15.9 % (11.5-14.5); White Blood Count 8.5 K/mm3 (4.5-10.0)
[2023-11-16 06:59] LABS: Anion Gap 8 mmol/L (8-16); Blood Urea Nitrogen 21 mg/dL (9-20); Calcium 8.6 mg/dL (8.4-10.2); Carbon Dioxide 23 mmol/L (22-30); Chloride 105 mmol/L (98-107); Estimated CRCL calculation 62 ml/min; Estimated Glomerular Filt Rate 51; Glucose 153 mg/dL (65-110); Potassium 4.6 mmol/L (3.4-5.0); Sodium 136 mmol/L (137-145)
[2023-11-16 07:55] LABS: Glucose Point of Care 147 mg/dl (65-105)
[2023-11-16] MEDS: PREGABALIN (*CRX) 75 MG CAPSULE 150 MG PO ×3 (09:04→17:29)
[2023-11-16] MEDS: SENNA/DOCUSATE SODIUM TABLET 1 TAB PO (09:04)
[2023-11-16] MEDS: lisinopriL 10 MG TABLET BY MOUTH (09:04)
[2023-11-16] MEDS: buPROPion HCL SR (12HR) 100 MG TABCR PO (09:05)
[2023-11-16] MEDS: METOPROLOL TARTRATE 25 MG TABLET PO ×2 (09:05→20:40)
[2023-11-16] MEDS: CYCLOBENZAPRINE HCL 10 MG TABLET PO ×2 (09:06→20:41)
[2023-11-16] MEDS: MAGNESIUM OXIDE 400 MG TABLET PO (09:06)
[2023-11-16] MEDS: CYANOCOBALAMIN 1,000 MCG TABLET 2000 MCG PO (09:06)
[2023-11-16] MEDS: TAMSULOSIN HCL 0.4 MG CAPSULE PO (09:06)
[2023-11-16] MEDS: ASPIRIN 81 MG ENTERIC TABLET PO (09:06)
[2023-11-16] MEDS: CYANOCOBALAMIN 500 MCG TABLET PO (09:06)
[2023-11-16] MEDS: INSULIN ASPART (*BKC) 100 UNITS/ML 17 UNITS SUB-Q ×3 (09:07→17:28)
[2023-11-16] MEDS: INSULIN GLARGINE (*BKC) 100 UNITS/ML 30 UNITS SUB-Q ×2 (09:07→17:28)
[2023-11-16 11:21] LABS: Glucose Point of Care 185 mg/dl (65-105)
--- NOTE | 2023-11-16 11:32 | PCPTNOTE ---
Attempted PT evaluation, pt with OT. Will follow.
[2023-11-16] MEDS: traMADol HCL (*CRX) 50 MG TABLET PO (12:30)
--- NOTE | 2023-11-16 12:57 | WPDNEUROPN ---
Progress Note: A&P Assessment and Plan (1) Dizziness: Code(s): R42 - Dizziness and giddiness Status: Acute (2) CVA (cerebral vascular accident): Code(s): I63.9 - Cerebral infarction, unspecified Status: Acute (3) Left hand weakness: Code(s): R29.898 - Other symptoms and signs involving the musculoskeletal system Status: Acute (4) Stenosis of both internal carotid arteries: Code(s): I65.23 - Occlusion and stenosis of bilateral carotid arteries Status: Acute Plan Noel Rodriguez is a 63 year old male with a history of hypertension, diabetes, CKD, PAD, prior R MCA territory stroke presenting due to dizziness for the past three weeks. CTA brain/carotid shows bilateral proximal ICA stenosis, similar to before. Etiology of dizziness could be central vs peripheral. He does report R ear fullness and hearing loss so vestibular dysfunction is a possibility. Will need to obtain MRI brain to rule out stroke as cause, especially since he has a prior history of stroke and significant ICA stenosis. - Obtain MRI brain - Continue Aspirin 81mg daily and Plavix 75mg daily - If he has not already, he will need outpatient vascular evaluation for ICA stenosis Subjective Date/time seen: 11/16/23 12:57 Interval history: Noel Rodriguez is a 63 year old male with a history of hypertension, diabetes, CKD, PAD, prior stroke with residual LUE weakness who presented due to dizziness. Patient reported on presentation that he was having room spinning sensation for the past three weeks, that his resulted in his falling. Associated symptoms include nausea. He denies any double vision. He reports that his right ear feels 'full' and can't hear as well in it. He has chronic bilateral tinnitus as well. On presentation to [place] His CT head did not show any acute changes. CTA brain/carotid showed 40% stenosis of proximal L ICA and 64% stenosis of the proximal DEE. EKG showed sinus rhythm. BP on presentation was in the 130-150s. Patient denies any double vision with the dizziness or any other focal deficits. He reports that the dizziness is better since admission although still present. Of note patient had a stroke in June 2023. He presented at the time with L hand weakness. He was found to have R MCA territory stroke. At the time he had 61% stenosis of the proximal DEE which was thought to be etiology. We had recommended DAPT x 3 months followed by aspirin monotherapy, as well as continuing Lipitor 80mg daily. Recommended outpatient vascular consultation since he had significant stenosis on the side of the stroke. Review of Systems Review of Systems: All systems reviewed & are unremarkable except as noted in HPI and below Exam Const: General: comfortable and no acute distress HENMT: Mouth: Yes moist mucous membranes Eyes: Pupils: Equal, round and reactive pupils present EOM: EOMs intact bilaterally Resp: Effort & Inspection: normal respiratory effort Skin: General skin exam: normal color Neuro: Other: Pupils equal and reactive bilaterally, EOMI, face symmetric, facial sensation intact, tongue protrudes midline, palate midline. Shoulder shrug normal. Strength 5/5 in RUE, 4/5 in proximal LUE. L uniform maker strength (3/5). LLE antigravity strength. RLE AKA. Sensation is symmetric throughout. FNF normal bilaterally. Language comprehension and fluency intact. Gait deferred. Extrem: Other: R AKA Psych: Mental Status: mental status grossly normal Affect: normal affect Objective Data Vital Signs Vital Signs: Vital Signs - 24 hr 11/15/23 16:00 11/15/23 16:00 11/15/23 20:57 Temperature 36.8 C Pulse Rate 69 66 66 Respiratory Rate 14 Blood Pressure 164/52 H Pulse Oximetry 97 Oxygen Delivery 11/15/23 20:35 11/15/23 20:00 11/15/23 20:00 Temperature 37.0 C Pulse Rate 71 72 66 Respiratory Rate 20 20 Blood Pressure 148/81 H Pulse Oximetry 98 98 Oxygen Delivery Room Air
--- NOTE | 2023-11-16 14:05 | PM.CNNEP ---
Assessment and Plan Assessment and plan (1) SIM (acute kidney injury): Code(s): N17.9 - Acute kidney failure, unspecified Status: Acute Assessment and Plan: reportedly had CKD although recent labs prior to this admission were in the normal range suspect mild volume depletion + contrast exposure (CTA) along with concurrent ETHAN-I use to blame for higher creatinine would follow trend of repeat labs and UOP if creatinine deteriorates further, will proceed with further testing.... (2) Hyperkalemia: Code(s): E87.5 - Hyperkalemia Status: Acute Assessment and Plan: resolved with medical management related to #2 follow trend of repeat K+ levels I will continue to follow the patient with you while he remains hospitalized and make further recommendations as needed. Thank you for allowing me to participate in the care this patient. History of Present Illness Reason for Consult Consult date: 11/16/23 Reason for consult: acute renal failure Chief Complaint Chief complaint: Dizziness, Hyperkalemia History of Present Illness Narrative: The patient is a 63-year-old male with a past medical history as outlined below who presented to [facility] Emergency room with multiple complaints but more so due to dizziness. He reports on and off dizziness with associated vertigo the past 2-3 weeks if not longer. He reports that he feels the room is spinning and he has had multiple falls since these symptoms started. He cannot tell me if there is any specific alleviating or aggravating factors although he does report some associated nausea when he has the dizziness episodes. His apparent last fall was about two days prior to his presentation to the emergency room. Unfortunately, the patient is not the best historian and is difficult to get a full and complete history of the events that he reports. Workup and evaluation in the emergency room demonstrated the patient to be hemodynamically stable but in mild distress secondary to his dizziness/vertigo symptoms. He does report a CVA about five months ago which may have been a precipitating factor with regard to his presenting symptoms. Subsequent workup and evaluation emergency room demonstrated labs that showed acute kidney injury/acute renal failure with mild hyperkalemia. CT of the head and neck was also done which showed 40% stenosis of the proximal left internal carotid artery with plaque ulceration and 64% stenosis of the proximal right internal carotid artery. Neurology was consulted from the ER and given his constellation of symptoms and laboratory/imaging findings, he was admitted in hospital for further evaluation and therapy. Renal consultation was requested due to his acute kidney injury/acute renal failure. On presentation to the emergency room, his creatinine was 1.7 mg/dL and repeat testing this morning shows his creatinine is somewhat better at 1.4 mg/dL. His baseline creatinine seems to be normal with his last creatinine running around 1.0-1.3 mg/dL. It would seem that he has had episodes of acute kidney injury/acute renal failure in the past which oozed be resolved by the time of discharge on previous hospitalizations. In spite of his acute kidney injury which seems to be resolving, he has no other acute issues or complaints voiced a 10 with regard to his dizziness/vertigo as mentioned above. Currently, the time my evaluation, he appears to be in no acute distress. Review of Systems Review of Systems: As per HPI. [facility] Past Medical History Medical History ADHD (attention deficit hyperactivity disorder) Cellulitis of both feet Chronic kidney disease, stage 3 Baseline creatinine between 1.5 and 1.60. Chronic pain syndrome On long-term opiates. Coronary artery disease With history of stents. Degenerative disc disease Diabetic foot infection Gangrene of toe of right paul
--- NOTE | 2023-11-16 15:26 | PM.IMPN ---
Progress Note: A&P Assessment and Plan (1) Stenosis of both internal carotid arteries: Code(s): I65.23 - Occlusion and stenosis of bilateral carotid arteries Status: Acute (2) SIM (acute kidney injury): Code(s): N17.9 - Acute kidney failure, unspecified Status: Acute (3) Normocytic anemia: Code(s): D64.9 - Anemia, unspecified Status: Acute (4) CVA (cerebral vascular accident): Code(s): I63.9 - Cerebral infarction, unspecified Status: Acute Assessment and Plan: ?Obtain MRI brain - Continue Aspirin 81mg daily and Plavix 75mg daily - If he has not already, he will need outpatient vascular evaluation for ICA stenosis Plan -continue cardiac telemetry monitoring CTA head and neck ordered which showed?40% stenosis of the proximal left internal carotid artery with plaque ulceration & 64% stenosis of the proximal right internal carotid artery --check Brain MRI in the a.m. per neurology - continue Neurovascular checks ordered every 4 hours as per TIA/stroke protocol -Patient had SIM with the mild hyperkalemia for which he was given 1 L Ringer's lactate IV solution Strict input and output monitoring will plan to dispo to SNF tomorrow Continue with home meds. Monitor patient closely while admitted. ?Patient will require close follow up with PCP/specialists as an outpatient to address chronic medical issues. Repeat labs in a.m. -continue Electrolyte replacement as per protocol. pt denies any s/s at this time, will plan to dispo in the a.m after brain MRI results Subjective Date/time seen: 11/16/23 15:26 Interval history: HPI narrative as per ED provider: ? 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 cardia stent placement, peripheral arterial disease, s/p right BKA, insulin-dependent type 2 diabetes, CKD reports for evaluation for multiple complaints.? Patient states he was recently told that he had a white blood cell count of 17.? He had these labs drawn 8 days ago.? He states he was told today to come to the ER for further evaluation, however he is unable to tell me who told him this? and who alfredo his labs.? He is also stating that he has had intermittent dizziness for the past 3 weeks.? States it feels like he is spinning and he has had? multiple falls since the onset of these symptoms.? He is unable to identify any aggravating or ? Alleviating factors, however states he has associated nausea when he feels dizzy. He normally ambulates with a wheelchair, however states he has had episodes wrist fallen out of his wheelchair and bed.? He states his last fall was 2 days ago.? Patient reports every time has a vertigo episode of falls, he never hit his head or lose consciousness.? He does state that he has back pain which she believes is from a fall when he tried to catch himself on a machine a few days ago.? He is unable to provide details of the event.? The patient is a poor historian.? He denies chest pain, shortness of breath, cough or congestion, otalgia, abdominal pain, nausea, vomiting, diarrhea, dysuria or hematuria, vision changes, focal numbness or weakness, syncope,? Headache. He is also complaining of dizziness/vertigo symptoms with intermittent episodes of head spinning and multiple falls as described above.? He was was worked up in the ER.? He has a history of prior CVA 5 months ago for which she was worked up and treated in our hospital.? CTA head and neck done today showed 40% stenosis of the proximal left internal carotid artery with plaque ulceration and 64% stenosis of the proximal right internal carotid artery.? Given his symptoms, Neurology was contacted by ER physician and he is being placed under observation for tele monitoring, neurology evaluation and further workup.? He was also found to be dehydrated with the SIM and mild hyperkalemia which was addressed in the ER. 11/15/2023:??Patient is refusing Lovenox, reporting h
[2023-11-16 16:25] LABS: Glucose Point of Care 103 mg/dl (65-105)
[2023-11-16 20:38] LABS: Glucose Point of Care 100 mg/dl (65-105)
[2023-11-16] MEDS: MELATONIN 5 MG TABLET 10 MG BY MOUTH (20:41)
[2023-11-17] VITALS: PULSE 62
[2023-11-17] MEDS: traMADol HCL (*CRX) 50 MG TABLET PO (00:24)
[2023-11-17 04:00] VITALS: PULSE 59
[2023-11-17 06:00] VITALS: BP 117/45; PULSE 51; RESP 20; TEMP 36.7; O2SAT 98
[2023-11-17 06:39] LABS: Basophils Percent Auto 0.6 % (0.2-1.2); Eosinophils Absolute Auto 0.2 K/mm3 (0-0.3); Eosinophils Percent Auto 2.2 % (0-4.4); Hemoglobin 8.9 g/dL (14.0-18.0); Immature Granulocyte Absolute 0.07 K/mm3 (0.00-0.031); Lymphocytes Absolute Auto 1.98 K/mm3 (0.9-3.2); Lymphocytes Percent Auto 27.8 % (18.3-44.2); Mean Corpuscular HGB Conc 30.7 g/dl (32-36); Mean Corpuscular Hemoglobin 29.6 pg (26-34); Mean Corpuscular Volume 96.3 fl (80-100); Mean Platelet Volume 10.5 fl (7.4-10.4); Monocytes Absolute Auto 0.6 K/mm3 (0.1-0.6); Monocytes Percent Auto 8.7 % (2.6-8.5); Neutrophils Absolute Auto 4.3 K/mm3 (1.3-6.7); Neutrophils Percent Auto 59.7 % (45.5-73.1); Platelet Count Result 227 k/mm3 (150-375); Red Blood Count 3.01 M/mm3 (4.6-6.20); Red Cell Distribution Width 15.9 % (11.5-14.5); White Blood Count 7.1 K/mm3 (4.5-10.0)
[2023-11-17 06:41] LABS: Anion Gap 6 mmol/L (8-16); Blood Urea Nitrogen 23 mg/dL (9-20); Calcium 8.6 mg/dL (8.4-10.2); Carbon Dioxide 25 mmol/L (22-30); Chloride 104 mmol/L (98-107); Estimated CRCL calculation 58 ml/min; Estimated Glomerular Filt Rate 47; Glucose 128 mg/dL (65-110); Potassium 4.5 mmol/L (3.4-5.0); Sodium 135 mmol/L (137-145)
[2023-11-17 07:42] LABS: Glucose Point of Care 132 mg/dl (65-105)
--- NOTE | 2023-11-17 08:30 | PC.NURSE ---
Pt is being very verbally abusive calling various staff members profane names and hurling accusations that he is being denied food, etc. Pt's breakfast tray was delivered less than 5 minutes prior to this tirade and was sitting on his bedside table. I instructed pt to not be abusive towards staff which sent him on another profanity laden tirade.
--- NOTE | 2023-11-17 09:03 | PCPTNOTE ---
Attempted PT evaluation, pt off the unit for test. Will follow.
[2023-11-17 09:20] VITALS: PULSE 65
[2023-11-17] MEDS: INSULIN ASPART (*BKC) 100 UNITS/ML 17 UNITS SUB-Q (09:23)
[2023-11-17 09:24] VITALS: PULSE 73
[2023-11-17] MEDS: lisinopriL 10 MG TABLET BY MOUTH (09:24)
[2023-11-17] MEDS: SENNA/DOCUSATE SODIUM TABLET 1 TAB PO (09:24)
[2023-11-17] MEDS: buPROPion HCL SR (12HR) 100 MG TABCR PO (09:24)
[2023-11-17] MEDS: MAGNESIUM OXIDE 400 MG TABLET PO (09:24)
[2023-11-17] MEDS: CYANOCOBALAMIN 500 MCG TABLET PO (09:24)
[2023-11-17] MEDS: CYANOCOBALAMIN 1,000 MCG TABLET 2000 MCG PO (09:24)
[2023-11-17] MEDS: METOPROLOL TARTRATE 25 MG TABLET PO (09:24)
[2023-11-17] MEDS: PREGABALIN (*CRX) 75 MG CAPSULE 150 MG PO (09:24)
[2023-11-17] MEDS: ASPIRIN 81 MG ENTERIC TABLET PO (09:24)
[2023-11-17] MEDS: TAMSULOSIN HCL 0.4 MG CAPSULE PO (09:25)
[2023-11-17] MEDS: MICONAZOLE NITRATE 2% CREAM 30 GM TUBE 1 APPLIC TOPICAL (09:25)
[2023-11-17] MEDS: SILVER SULFADIAZINE 1% CR 400 GM JAR (*BKC) 1 APPLIC TOPICAL (09:25)
--- NOTE | 2023-11-17 10:21 | PCPTNOTE ---
Attempted PT evaluation, pt refused due pt pain on the back side. Will follow.
--- NOTE | 2023-11-17 10:54 | PM.DS ---
DS: Admitting Diagnosis Discharge Date 11/17/2023 Admitting Diagnosis SIM DS: Discharge Diagnosis Discharge Diagnosis Plan CTA head and neck ordered which showed?40% stenosis of the proximal left internal carotid artery with plaque ulceration & 64% stenosis of the proximal right internal carotid artery --check Brain MRI in the a.m. per neurology - continue Neurovascular checks ordered every 4 hours as per TIA/stroke protocol -Patient had SIM with the mild hyperkalemia for which he was given 1 L Ringer's lactate IV solution will plan to dispo to SNF Continue with home meds. ?Patient will require close follow up with PCP/specialists as an outpatient to address chronic medical issues. pt denies any s/s at this time, will plan to dispo in the a.m after brain MRI results DS: Summary Hospital Course Reason for hospitalization: Patient came to the ER for evaluation with the multiple complaints as well as dizziness/vertigo Narrative: Our patient is a 63 years old poor historian with chronic medical issues who came to the ER with multiple complaints.? 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 cardia stent placement, peripheral arterial disease, s/p right BKA, insulin-dependent type 2 diabetes, CKD reports for evaluation for multiple complaints.? Patient states he was recently told that he had a white blood cell count of 17.? He had these labs drawn 8 days ago.? He states he was told today to come to the ER for further evaluation, however he is unable to tell me who told him this? and who alfredo his labs.? He is also stating that he has had intermittent dizziness for the past 3 weeks.? States it feels like he is spinning and he has had? multiple falls since the onset of these symptoms.? He is unable to identify any aggravating or ? Alleviating factors, however states he has associated nausea when he feels dizzy. He normally ambulates with a wheelchair, however states he has had episodes wrist fallen out of his wheelchair and bed.? He states his last fall was 2 days ago.? Patient reports every time has a vertigo episode of falls, he never hit his head or lose consciousness.? He does state that he has back pain which she believes is from a fall when he tried to catch himself on a machine a few days ago.? He is unable to provide details of the event.? The patient is a poor historian.? He denies chest pain, shortness of breath, cough or congestion, otalgia, abdominal pain, nausea, vomiting, diarrhea, dysuria or hematuria, vision changes, focal numbness or weakness, syncope,? Headache. He is also complaining of dizziness/vertigo symptoms with intermittent episodes of head spinning and multiple falls as described above.? He was was worked up in the ER.? He has a history of prior CVA 5 months ago for which she was worked up and treated in our hospital.? CTA head and neck done today showed 40% stenosis of the proximal left internal carotid artery with plaque ulceration and 64% stenosis of the proximal right internal carotid artery.? Given his symptoms, Neurology was contacted by ER physician and he is being placed under observation for tele monitoring, neurology evaluation and further workup.? He was also found to be dehydrated with the SIM and mild hyperkalemia which was addressed in the ER. Interval hx: 11/15/2023:??Patient is refusing Lovenox, reporting he does not want to be seen or treated citing he is ready to go back to his appropriate place, he denies any pain, shortness a breath, or chest pain at this time. 11/16/2023: pt seen today, he denies any c/o at this time, reports no overnight events. Discussed with opt will need to get MRI of brain, will plan for dispo after results. 11/17/2023: pt seen by the bedside he resting with eyes open denies any c/o at this time. Steve MRI reveals no acute process. Discharge plan is today, discussed with pt he will need
[2023-11-17 11:32] LABS: Glucose Point of Care 162 mg/dl (65-105)
[2023-11-17 14:00] VITALS: BP 150/52; PULSE 62; RESP 16; TEMP 36.3; O2SAT 98
== END 2023-11-17 15:55 ==
LOC: ANHED 21:21 → ANH3MEDSUR 11-15 03:19
PROVIDERS: Emergency Medicine; Admitting Provider Family Medicine; Emergency Provider Physician Assistant; PCP Internal Medicine; Visit Provider Nurse Practitioner
DX: I63.9 Cerebral infarction, unspecified (principal); R42 Dizziness and giddiness; D64.9 Anemia, unspecified; E87.5 Hyperkalemia; M51.36 Other intervertebral disc degeneration, lumbar region; M48.061 Spinal stenosis, lumbar region without neurogenic claudication; R29.6 Repeated falls; Z99.3 Dependence on wheelchair; G89.4 Chronic pain syndrome; I69.354 Hemiplegia and hemiparesis following cerebral infarction affecting left non-dominant side; I25.10 Atherosclerotic heart disease of native coronary artery without angina pectoris; Z95.5 Presence of coronary angioplasty implant and graft; E11.42 Type 2 diabetes mellitus with diabetic polyneuropathy; E11.51 Type 2 diabetes mellitus with diabetic peripheral angiopathy without gangrene; Z89.511 Acquired absence of right leg below knee; K21.9 Gastro-esophageal reflux disease without esophagitis; D72.829 Elevated white blood cell count, unspecified; I25.2 Old myocardial infarction; R94.31 Abnormal electrocardiogram [ECG] [EKG]; N17.9 Acute kidney failure, unspecified; I12.9 Hypertensive chronic kidney disease with stage 1 through stage 4 chronic kidney disease, or unspecified chronic kidney disease; E11.22 Type 2 diabetes mellitus with diabetic chronic kidney disease; N18.30 Chronic kidney disease, stage 3 unspecified; M51.24 Other intervertebral disc displacement, thoracic region; R06.09 Other forms of dyspnea; E78.5 Hyperlipidemia, unspecified; F17.210 Nicotine dependence, cigarettes, uncomplicated; Z79.51 Long term (current) use of inhaled steroids; Z79.4 Long term (current) use of insulin; Z79.84 Long term (current) use of oral hypoglycemic drugs; Z79.82 Long term (current) use of aspirin; Z79.891 Long term (current) use of opiate analgesic; Z79.899 Other long term (current) drug therapy; Z86.718 Personal history of other venous thrombosis and embolism
CPT/HCPCS: 36415; 70496; 70498; 70553; 71045; 72125; 72128; 72131; 80048; 80053; 81003; 82550; 82607; 82746; 82948; 83735; 83880; 84132; 84443; 84484; 85025; 85610; 85730; 87637; 92610; 93005; 94640; 96361; 96374; 96375; 97165; 99285; A9270; A9577; G0378; G0379; J1650; J1815; J7120; Q9967

== ENCOUNTER 2024-03-04 10:41 | Inpatient (IN) | payer BC, SELFPAY ==
[2024-03-04] VITALS (20 sets, daily range): BP systolic 104–154; BP diastolic 41–123; PULSE 65–89; RESP 10–23; TEMP 36.4–36.8; O2SAT 97–100
--- NOTE | ~2024-03-04 | CT_ITS ---
EXAMINATION: CT brain wo con DATE: 03/21/2024 21:32 INDICATION: Neurologic changes TECHNIQUE: Computed tomography (CT) of the head was performed without intravenous contrast. Sagittal and coronal reconstructions were performed. The mA was adjusted according to patient size. Iterative reconstruction technique was employed. The dose-length product was 681.00 mGy-cm. COMPARISON: head CT dated 03/16/2024 FINDINGS: Unchanged small region of encephalomalacia in the left frontal lobe consistent with chronic infarct. Additional unchanged small old lacunar infarct at the posterior limb of the right internal capsule. N o acute intracranial hemorrhage, acute infarction or abnormal extra axial fluid collection. Ventricle s are normal and symmetric. No mass/mass effect. Small right mastoid effusion and large left otomasto iditis effusion. The orbits are normal. There is mucosal thickening in the bilateral sphenoid, left e thmoid and right maxillary sinuses. There is a predominantly unfused posterior ring of C1. Partially visualized orogastric versus endotracheal tube with the oral cavity. IMPRESSION: 1. Old infarcts in the frontal lobe and posterior limb of the right internal capsule. No acute intrac ranial process. 2. Small right mastoid effusion and larger left otomastoiditis effusion. Reviewed, dictated and finalized at location A. IMPRESSION: 1. Old infarcts in the frontal lobe and posterior limb of the right internal ca psule. No acute intracranial process. 2. Small right mastoid effusion and larger left otomastoiditis effusion.
--- NOTE | ~2024-03-04 | XR_ITS ---
XR chest 1V portable DATE: 03/24/2024 05:36 INDICATION: Respiratory failure TECHNIQUE: Portable AP chest on 03/24/2024 at 0519 hours COMPARISON: 03/23/2024 portable AP chest at 0531 hours FINDINGS: ET tube tip 6 cm above vanessa. NG tube in stomach. Right internal jugular central venous catheter tip overlies superior vena cava. Cardiomegaly. Aortic arch calcification. There is prominent increased retrocardiac density on the left consistent with left lower lobe atelect asis and/or consolidation. There is minimal infiltrate or atelectasis in the right lower lung. IMPRESSION: No significant change since 03/23/2024 Reviewed, dictated and finalized at location A.
--- NOTE | ~2024-03-04 | CT_ITS ---
EXAMINATION: CT chest abdomen pelvis wo con DATE: 03/16/2024 09:05 INDICATION: Pleural effusion and consolidation. TECHNIQUE: Computed tomography (CT) of the chest, abdomen, and pelvis was performed without intraveno us contrast. Automated exposure control and iterative reconstruction technique were employed. The dos e-length product was 2003.33 mGy-cm. COMPARISON: 03/07/2024 FINDINGS: CHEST CT: Endotracheal tube tip 3.5 cm above the vanessa. Small left and moderate-sized right posterior layering pleural effusions. There is collapse of the basilar segments of the left lower lobe with additional atelectasis at the lingula and superior segment of the left lower lobe. Additional mild dependent com pressive atelectasis in the right lower lobe. There are some subtle patchy groundglass opacities in t he right lung which could represent pneumonia or mild pulmonary edema. Heart size is normal. There is however a large amount of pericardial effusion. Atherosclerotic coronary artery calcifications and a ortic valve calcific lesion. Thoracic aorta is normal in caliber. No pathologically enlarged thoracic lymphadenopathy. Mild thoracic spondylosis. ABDOMEN/PELVIS CT: Nasogastric tube tip in the body the stomach. A few small splenic calcific a lamar consistent with old granulomatous disease. High attenuation material within the dependent gallbladder which could repres ent sludge or vicariously excreted contrast which surrounds multiple small hypodense filling defects within the dependent neck of the gallbladder. No gallbladder wall thickening or pericholecystic infil trate stranding to suggest acute cholecystitis. Liver, pancreas, bilateral adrenal glands are normal. Bilateral renal atrophy, moderate on the right and mild on the left. There are atherosclerotic calci fications at the bilateral renal brenda. There is residual oral contrast material scattered throughout the colon. Bowels including the appendix are otherwise normal with no obstruction. Ayoub catheter wit hin the decompressed bladder. Small bilateral fat-containing inguinal hernias. No free intraperitonea l gas or fluid. No pathologically enlarged abdominal or pelvic lymphadenopathy. Partially visualized right femoral bypass graft. Mild lumbar spondylosis with chronic mild anterior wedging of L1. IMPRESSION: 1. Large pericardial effusion. 2. Small left and moderate-sized right pleural effusions with persistent partial collapse of the left lower lobe and additional less severe atelectasis in the lingula and dependent right lower lobe. 3. Subtle scattered patchy groundglass opacities in the right lung suspicious for pneumonia with diff erential including mild pulmonary edema. 4. Cholelithiasis. 5. Mild left and moderate right renal atrophy. Reviewed, dictated and finalized at location A. IMPRESSION: 1. Large pericardial effusion. 2. Small left and moderate-sized right pleural effusions with persistent partia l collapse of the left lower lobe and additional less severe atelectasis in the lingula and dependent right lower lobe. 3. Subtle scattered patchy groundglass opacities in the right lung suspicious f or pneumonia with differential including mild pulmonary edema. 4. Cholelithiasis. 5. Mild left and moderate right renal atrophy.
--- NOTE | ~2024-03-04 | CT_ITS ---
EXAMINATION: CT diagnostic chest wo con DATE: 03/21/2024 21:32 INDICATION: respiratory failure TECHNIQUE: Computed tomography (CT) of the chest was performed without intravenous contrast. Addition al 3D reconstructions utilizing coronal maximum intensity projection (MIP) were performed. Automated exposure control and iterative reconstruction technique were employed. The dose-length product was 89 6.02 mGy-cm. COMPARISON: 03/16/24 FINDINGS: Endotracheal tube tip 4.0 cm above the vanessa. Right internal jugular central venous catheter with di stal tip at the caudal superior vena cava. Nasogastric tube tip in the body of the stomach. Small esperanza ateral pleural effusions. There is near complete collapse of the left lower lobe. Mild dependent atel ectasis in the right lower lobe. On ultrasound but opacity in the right lower lobe consistent with pn eumonia. Mild cardiomegaly. Persistent large pericardial effusion. Atherosclerotic coronary artery ca lcifications. Thoracic aorta is normal in caliber. No pathologically enlarged thoracic lymphadenopath y. Bilateral gynecomastia. Gallbladder is dilated to 5.0 cm. There is suggestion of some stranding in the pericholecystic fat which raises concern for acute cholecystitis. Mild left and moderate right r enal atrophy. Mild thoracic spondylosis. IMPRESSION: 1. Unchanged mild cardiomegaly with large pericardial effusion. 2. Small bilateral pleural effusions with persistent near complete collapse of the left lower lobe. 3. Mild tree-in-bud opacity right lower lobe consistent with pneumonia which appears improved since t he prior CT. 4. Gallbladder is dilated to 5 cm with mild pericholecystic inflammatory stranding suspicious for acu te cholecystitis and could consider further evaluation with either ultrasound or HIDA scan. Reviewed, dictated and finalized at location A. IMPRESSION: 1. Unchanged mild cardiomegaly with large pericardial effusion. 2. Small bilateral pleural effusions with persistent near complete collapse of the left lower lobe. 3. Mild tree-in-bud opacity right lower lobe consistent with pneumonia which ap pears improved since the prior CT. 4. Gallbladder is dilated to 5 cm with mild pericholecystic inflammatory strand ing suspicious for acute cholecystitis and could consider further evaluation wi th either ultrasound or HIDA scan.
--- NOTE | ~2024-03-04 | XR_ITS ---
EXAMINATION: XR chest 1V portable DATE: 03/16/2024 06:01 INDICATION: Intubation TECHNIQUE: frontal view of the chest was obtained. COMPARISON: Chest radiograph dated 03/15/2024 FINDINGS: Endotracheal tube tip 4.4 cm above the vanessa. Nasogastric tube extends below the left hemidiaphragm with distal tip collimated off the study. Unchanged extensive left-sided lung disease with opacification of the left mid and lower lung zones s ome scattered air bronchograms which could represent atelectasis and/or pneumonia potentially with sm all left pleural effusion. No pneumothorax or right-sided pleural effusion. Slight indistinct interst itial pattern at the right lower lung zone suggesting mild pulmonary edema. Cardiomegaly. IMPRESSION: 1. No significant change in dense consolidation with air bronchograms in the left mid to lower lung z one which could represent atelectasis, pneumonia, pleural effusion or some combination thereof. 2. Cardiomegaly with mild pulmonary edema at the right lower lung zone. Reviewed, dictated and finalized at location A. IMPRESSION: 1. No significant change in dense consolidation with air bronchograms in the le ft mid to lower lung zone which could represent atelectasis, pneumonia, pleural effusion or some combination thereof. 2. Cardiomegaly with mild pulmonary edema at the right lower lung zone.
--- NOTE | ~2024-03-04 | XR_ITS ---
EXAMINATION: XR chest 1V portable DATE: 04/02/2024 08:25 INDICATION: Respiratory failure. TECHNIQUE: A single frontal view of the chest was obtained. COMPARISON: Chest single view 03/31/2024 FINDINGS: There are airspace opacities in left lower lung zone. There is a small left pleural effusio n. No pneumothorax. There is enlargement of the cardiac silhouette. A tracheostomy tube is noted. A r ight internal jugular central venous catheter is seen with tip in the superior vena cava. IMPRESSION: 1. Worsened airspace opacities in left lower lung zone, consistent with atelectasis versus pneumonia. 2. Small left pleural effusion. 3. Enlargement of the cardiac silhouette, likely secondary to pericardial effusion. Reviewed, dictated and finalized at location A. IMPRESSION: 1. Worsened airspace opacities in left lower lung zone, consistent with atelect asis versus pneumonia. 2. Small left pleural effusion. 3. Enlargement of the cardiac silhouette, likely secondary to pericardial effus ion.
--- NOTE | ~2024-03-04 | XR_ITS ---
Portable chest x-ray Comparison: 03/25/2024 Clinical History: Intubation Findings: Endotracheal tube, NG tube, and right IJ line are in place. There is extensive retrocardia c consolidation. Right lung clear. Cardiomediastinal silhouette is stable. Bones and soft tissues ar e unremarkable. Impression: Extensive retrocardiac consolidation, suspicious for left lower lobe pneumonia. Support tubes, as above. Reviewed, dictated and finalized at location . Impression: Extensive retrocardiac consolidation, suspicious for left lower lobe pneumonia. Support tubes, as above.
--- NOTE | ~2024-03-04 | XR_ITS ---
EXAMINATION: XR chest port-a-cath/central DATE: 03/16/2024 10:48 INDICATION: Central line placement TECHNIQUE: frontal view of the chest was obtained. COMPARISON: Chest radiograph dated 03/16/2024 at 5:[address] at 8:57 AM FINDINGS: New right internal jugular central venous catheter with distal tip at the caudal superior vena cava. Endotracheal tube tip 4.0 cm above the vanessa. Nasogastric tube extends below the left hemidiaphragm with distal tip collimated off the study. Increasing pulmonary vascular congestion. Increased indistinct interstitial and hazy airspace opaciti es in the right mid to lower lung zone. Persistent dense consolidation the left mid and lower lung zo ne. No pneumothorax. Enlarged cardiac silhouette. IMPRESSION: 1. Lines and tubes in expected position. 2. Persistent consolidation in the left mid to lower lung zone correspond to a small left pleural eff usion and associated atelectasis on prior CT. Superimposed pneumonia not excludable. 3. Increasing pulmonary vascular congestion with indistinct interstitial and hazy airspace opacity ri ght mid to lower lung zone likely combination of mild pulmonary edema or pneumonia superimposed over a small to moderate-sized right pleural effusion which is much better appreciated on prior CT. 4. Large cardiac silhouette on prior CT correspond to a large pericardial effusion. Reviewed, dictated and finalized at location A. IMPRESSION: 1. Lines and tubes in expected position. 2. Persistent consolidation in the left mid to lower lung zone correspond to a small left pleural effusion and associated atelectasis on prior CT. Superimpose d pneumonia not excludable. 3. Increasing pulmonary vascular congestion with indistinct interstitial and wan zy airspace opacity right mid to lower lung zone likely combination of mild pul monary edema or pneumonia superimposed over a small to moderate-sized right ple ural effusion which is much better appreciated on prior CT. 4. Large cardiac silhouette on prior CT correspond to a large pericardial effus ion.
--- NOTE | ~2024-03-04 | XR_ITS ---
EXAMINATION: XR chest ET placement DATE: 03/21/2024 10:48 INDICATION: Intubation. TECHNIQUE: A single frontal view of the chest was obtained. COMPARISON: Chest single view 03/21/2024 at 5:20 AM FINDINGS: There are airspace opacities in right lower lung zone and left mid and lower lung zones. No pleural effusion or pneumothorax. There is enlargement of the cardiac silhouette. The endotracheal t ube tip is 4.4 cm above the vanessa. The nasogastric tube tip is in the stomach. A right internal jugu lar central venous catheter is seen with tip in the superior vena cava. IMPRESSION: 1. Stable airspace opacities in right lower lung zone and left mid and lower lung zones, consistent w ith atelectasis versus pneumonia. 2. Enlargement of the cardiac silhouette, likely a combination of cardiomegaly and pericardial effusi on. Reviewed, dictated and finalized at location A. IMPRESSION: 1. Stable airspace opacities in right lower lung zone and left mid and lower colin ng zones, consistent with atelectasis versus pneumonia. 2. Enlargement of the cardiac silhouette, likely a combination of cardiomegaly and pericardial effusion.
--- NOTE | ~2024-03-04 | XR_ITS ---
XR chest 1V portable 03/14/2024 12:37 Indication: Shortness of breath Procedure: AP portable chest Comparison: Comparison to multiple prior studies sequentially, with oldest reviewed study dated 07/09. Findings: Moderate cardiomegaly with. There is pulmonary edema. Left pleural effusion. No pneumothora x. No acute osseous abnormality. Impression: 1: Cardiomegaly with pulmonary edema. Reviewed, dictated and finalized at location B. Impression: 1: Cardiomegaly with pulmonary edema.
--- NOTE | ~2024-03-04 | XR_ITS ---
Portable chest x-ray Comparison: 03/28/2024 Clinical History: Intubation Findings: Endotracheal tube and right IJ line are in place. Retrocardiac consolidation again present . Right lung clear. Cardiomediastinal silhouette is stable. Bones and soft tissues are unremarkable. Impression: Stable retrocardiac consolidation. Support tubes, as above. Reviewed, dictated and finalized at location . Impression: Stable retrocardiac consolidation. Support tubes, as above.
--- NOTE | ~2024-03-04 | XR_ITS ---
EXAMINATION: XR chest ET placement, XR abdomen gastric tube insert DATE: 03/15/2024 12:58 INDICATION: Endotracheal tube insertion. Orogastric tube insertion. TECHNIQUE: 1. Portable AP supine view of the chest was obtained. 2. Portable AP supine view of the abdomen was obtained. This excludes portions of the right-sided the abdomen along the lower abdomen and pelvis. COMPARISON: Chest radiograph dated 03/15/2024 at 12:04 PM FINDINGS: Chest: Interval placement of an endotracheal tube distal tip of which is 3.7 cm above the vanessa. Large left pleural effusion with persistent complete opacities in the left mid to lower lung zone and small por tion of aerated lung in the left upper lung zone. Right lung is clear. The left side of the cardiomed iastinal silhouette remains obscured. The right side is unremarkable. Calcified right hilar lymph nod es consistent with old granulomatous disease. Abdomen: Orogastric tube tip in proximal side port in the body of the stomach. Small portion of gas-filled bow el to be seen at the caudal margin of the field of imaging. IMPRESSION: 1. Endotracheal tube and orogastric tube both in expected positions. 2. Persistent large left pleural effusion with atelectasis and/or pneumonia throughout the majority t he left lung. Reviewed, dictated and finalized at location A. IMPRESSION: 1. Endotracheal tube and orogastric tube both in expected positions. 2. Persistent large left pleural effusion with atelectasis and/or pneumonia thr oughout the majority the left lung.
--- NOTE | ~2024-03-04 | XR_ITS ---
XR chest port-a-cath/central 03/08/2024 05:33 Indication: Line placement confirmation Procedure: AP portable chest Comparison: 06/17/2023 Findings: Moderate cardiomegaly. Asymmetric left-sided airspace disease is present which may represen t edema or pneumonia. Central line tip in the SVC. Small left pleural effusion. Impression: 1: Asymmetric left-sided airspace disease which may represents pneumonia or asymmetric edema. 2: Small left pleural effusion. 3: Moderate cardiomegaly. Reviewed, dictated and finalized at location B. Impression: 1: Asymmetric left-sided airspace disease which may represents pneumonia or asy mmetric edema. 2: Small left pleural effusion. 3: Moderate cardiomegaly.
--- NOTE | ~2024-03-04 | XR_ITS ---
EXAMINATION: XR chest 1V portable DATE: 03/17/2024 05:42 INDICATION: Intubation. TECHNIQUE: A single frontal view of the chest was obtained. COMPARISON: Chest single view 03/16/2024, chest CT 03/16/2024 FINDINGS: There is interstitial pattern in the lungs, consistent mild pulmonary edema. There are airs pace opacities in left mid and lower lung zones. There is a small left pleural effusion. No pneumotho rax. There is enlargement of the cardiac silhouette. The endotracheal tube tip is 5.8 cm above the ca tavo. A right internal jugular central venous catheter is seen with tip in the superior vena cava. Th e nasogastric tube tip is beyond the inferior margin of the radiograph, but at least to the stomach. IMPRESSION: 1. Mild pulmonary edema. 2. Stable airspace opacities in left mid and lower lung zones, consistent with atelectasis versus pne umonia. 3. Stable small left pleural effusion. 4. Enlargement of the cardiac silhouette correlating with a pericardial effusion by CT. Reviewed, dictated and finalized at location A. IMPRESSION: 1. Mild pulmonary edema. 2. Stable airspace opacities in left mid and lower lung zones, consistent with atelectasis versus pneumonia. 3. Stable small left pleural effusion. 4. Enlargement of the cardiac silhouette correlating with a pericardial effusio n by CT.
--- NOTE | ~2024-03-04 | XR_ITS ---
Portable chest x-ray Comparison: 03/24/2024 Clinical History: Respiratory failure Findings: Endotracheal tube, NG tube, and right IJ line are in place. There is retrocardiac consolid ation and moderate left pleural effusion. Cardiomediastinal silhouette is stable. Bones and soft tis sues are unremarkable. Impression: Moderate left pleural effusion with retrocardiac consolidation, which could reflect atelectasis versu s pneumonia. Support tubes, as above. Reviewed, dictated and finalized at location M. Impression: Moderate left pleural effusion with retrocardiac consolidation, which could ref lect atelectasis versus pneumonia. Support tubes, as above.
--- NOTE | ~2024-03-04 | XR_ITS ---
XR chest 1V portable DATE: 03/23/2024 06:10 INDICATION: Respiratory failure TECHNIQUE: Portable AP chest on 03/23/2024 at 0531 hours COMPARISON: 03/22/2024 portable AP chest at 0519 hours 03/21/2024 CT chest FINDINGS: ET tube in satisfactory position approximately 5 cm above vanessa. NG tube in stomach. Right internal jugular central venous catheter tip overlies superior vena cava. Enlargement of cardiac silhouette due to combination of cardiomegaly and pericardial effusion demonst rated on 03/21/2024 CT chest examination.. Aortic arch calcification. Prominent increased retrocardiac density on the left consistent with left lower lobe atelectasis and/ or consolidation. There is patchy infiltrate in the right mid and lower lung field. IMPRESSION: Left lower lobe atelectasis and/or consolidation Mild patchy infiltrate right mid and lower lung Cardiomegaly, pericardial effusion Aortic calcification Reviewed, dictated and finalized at location A.
--- NOTE | ~2024-03-04 | XR_ITS ---
EXAMINATION: XR chest 1V portable DATE: 03/30/2024 05:44 INDICATION: Intubation. TECHNIQUE: A single frontal view of the chest was obtained. COMPARISON: Chest single view 03/29/2024, chest CT 03/21/2024 FINDINGS: There are airspace opacities in left lower lobe. There is a small left pleural effusion. No pneumothorax. There is enlargement of the cardiac silhouette. The endotracheal tube tip is 5.4 cm ab ove the vanessa. A right internal jugular central venous catheter is seen with tip in the superior otoniel a cava. IMPRESSION: 1. Worsening airspace opacities in left lower lobe, consistent with atelectasis versus pneumonia. 2. Small left pleural effusion. 3. Enlargement of the cardiac silhouette secondary to pericardial effusion as seen on the prior CT. Reviewed, dictated and finalized at location A. IMPRESSION: 1. Worsening airspace opacities in left lower lobe, consistent with atelectasis versus pneumonia. 2. Small left pleural effusion. 3. Enlargement of the cardiac silhouette secondary to pericardial effusion as s een on the prior CT.
--- NOTE | ~2024-03-04 | US_ITS ---
Limited Abdominal Sonogram: Real-time sonographic imaging of the right upper quadrant was performed. Clinical History: Abnormal LFTs Findings: The liver appears normal with no evidence of mass lesion or bile duct dilatation. Main por mima vein demonstrates normal direction of flow. The gallbladder is well distended, and contains sludg e and small gallstones. No gallbladder wall thickening evident. The common bile duct measures 5 mm. The visualized pancreas, aorta, and IVC are unremarkable. Impression: Cholelithiasis and gallbladder sludge. Reviewed, dictated and finalized at location M. Impression: Cholelithiasis and gallbladder sludge.
--- NOTE | ~2024-03-04 | XR_ITS ---
EXAMINATION: XR chest 1V portable DATE: 03/15/2024 12:12 INDICATION: Shortness of breath TECHNIQUE: frontal view of the chest was obtained. COMPARISON: Chest radiograph dated 03/15/2024 FINDINGS: Persistent likely large left pleural effusion with dense opacification of the left mid and lower lung zone and fluid capping the left apex. The size of the effusions likely decreased slightly with a new small region of aerated lung in the left upper lung zone. There is also been improvement in the incr eased interstitial pattern in the right lung now primarily in the lower lung zone consistent with dec reasing mild pulmonary edema. The left side of the cardiomediastinal silhouette is obscured. IMPRESSION: 1. Interval decrease in a still large left pleural effusion with new small region of aerated lung in the left upper lung zone. 2. Decreasing mild pulmonary edema in the right lower lung. Reviewed, dictated and finalized at location A. IMPRESSION: 1. Interval decrease in a still large left pleural effusion with new small ana on of aerated lung in the left upper lung zone. 2. Decreasing mild pulmonary edema in the right lower lung.
--- NOTE | ~2024-03-04 | XR_ITS ---
EXAMINATION: XR chest 1V portable DATE: 03/31/2024 05:53 INDICATION: Intubation. TECHNIQUE: A single frontal view of the chest was obtained. COMPARISON: Chest single view 03/30/2024 FINDINGS: There are airspace opacities in left lower lung zone. No pleural effusion or pneumothorax. There is enlargement of the cardiac silhouette. The endotracheal tube tip is 6.5 cm above the vanessa. A right internal jugular central venous catheter is seen with tip in the superior vena cava. IMPRESSION: 1. Improved airspace opacities in left lower lung zone, consistent with atelectasis versus pneumonia. 2. Enlargement of the cardiac silhouette secondary to pericardial effusion as seen on the prior CT. Reviewed, dictated and finalized at location A. IMPRESSION: 1. Improved airspace opacities in left lower lung zone, consistent with atelect asis versus pneumonia. 2. Enlargement of the cardiac silhouette secondary to pericardial effusion as s een on the prior CT.
--- NOTE | ~2024-03-04 | XR_ITS ---
Portable chest x-ray Comparison: 03/18/2024 Clinical History: Intubation Findings: Endotracheal tube, NG tube, and right IJ line are essentially unchanged. Extensive left lo wer lobe consolidation again present, with possible small left effusion. There is mild patchy hazines s the right lung base. Cardiomediastinal silhouette is stable. Bones and soft tissues are unremarkab le. Impression: Stable extensive left lower lobe consolidation with possible small left pleural effusion. Patchy hazy airspace disease right lung base, unchanged. Stable support tubes. Reviewed, dictated and finalized at location M. Impression: Stable extensive left lower lobe consolidation with possible small left pleural effusion. Patchy hazy airspace disease right lung base, unchanged. Stable support tubes.
--- NOTE | ~2024-03-04 | US_ITS ---
EXAMINATION: US thoracentesis DATE: 03/15/2024 15:12 INDICATION: Left pleural effusion TECHNIQUE: Patient's condition did not allow for obtaining informed consent and patient was without a n immediate family member or power of service parts coordinator to provide consent. Given patient's recent deteriorati on in cardiopulmonary status now requiring intubation, Dr. Vazquez deemed the procedure of medical n ecessity. The skin was prepped and draped in sterile fashion. 1% lidocaine was used for local anesthe zoie. Under ultrasound guidance, a 5 Fr catheter with trochar was advanced into the left pleural effus ion. Fluid was aspirated. The catheter was removed, and a dressing was applied. There were no immedia te complications. FINDINGS: Ultrasound images demonstrate a small left pleural effusion and the catheter within the fluid. IMPRESSION: 1. Successful ultrasound-guided thoracentesis yielding 500 mL of yellowish fluid. Reviewed, dictated and finalized at location A. IMPRESSION: 1. Successful ultrasound-guided thoracentesis yielding 500 mL of yellowish flu id.
--- NOTE | ~2024-03-04 | US_ITS ---
EXAMINATION: US thoracentesis DATE: 03/18/2024 15:29 INDICATION: Bilateral pleural effusions TECHNIQUE: The procedure and its risks and benefits were discussed with the patient. Potential risks discussed included bleeding, infection, and pneumothorax. The patient understood the risks and agreed to proceed. The skin was prepped and draped in sterile fashion. 1% lidocaine was used for local anes thesia. Under ultrasound guidance, a 5 Fr catheter with trochar was advanced into the right pleural e ffusion. Fluid was aspirated. The catheter was removed, and a dressing was applied. There were no imm ediate complications. FINDINGS: Ultrasound images demonstrate a small right pleural effusion and the catheter within the fluid. IMPRESSION: 1. Successful ultrasound-guided thoracentesis yielding 550 mL of cloudy brownish colored fluid. Reviewed, dictated and finalized at location A. IMPRESSION: 1. Successful ultrasound-guided thoracentesis yielding 550 mL of cloudy browni sh colored fluid.
--- NOTE | ~2024-03-04 | XR_ITS ---
Supine and upright views of the abdomen Clinical history: NG tube placement Findings: NG tube in satisfactory position, tip below the diaphragm. Bowel gas pattern is nonspecific . No evidence for obstruction or free air. No abnormal mass lesion or calcification is seen. Osseous structures are intact. Impression: NG tube in satisfactory position. Reviewed, dictated and finalized at [facility]. Impression: NG tube in satisfactory position.
--- NOTE | ~2024-03-04 | XR_ITS ---
Portable chest x-ray Comparison: 03/20/2024 Clinical History: Respiratory failure Findings: Endotracheal tube, NG tube, and right IJ line are in place. Retrocardiac consolidation sim ilar to prior exam. There is mild haziness right lung base. Cardiomediastinal silhouette is stable. Bones and soft tissues are unremarkable. Impression: Retrocardiac consolidation could reflect left lower lobe atelectasis versus pneumonia. Correlate clin ically. Mild haziness right lung base, nonspecific. Correlate for pulmonary edema/atelectasis versus pneumoni a. Support tubes, as above. Reviewed, dictated and finalized at location . Impression: Retrocardiac consolidation could reflect left lower lobe atelectasis versus pne umonia. Correlate clinically. Mild haziness right lung base, nonspecific. Correlate for pulmonary edema/atele ctasis versus pneumonia. Support tubes, as above.
--- NOTE | ~2024-03-04 | XR_ITS ---
Portable chest x-ray Comparison: 03/17/2024 Clinical History: Intubation Findings: Endotracheal tube, NG tube, and right IJ line are in satisfactory positions. Small left pl eural effusion present with extensive retrocardiac consolidation. There is more patchy consolidation the right lung base. Cardiomediastinal silhouette is stable. Bones and soft tissues are unremarkable . Impression: Support tubes, as above. Bibasilar pulmonary edema/atelectasis versus pneumonia, left worse than right. Correlate clinically. Small left pleural effusion. Reviewed, dictated and finalized at [facility]. Impression: Support tubes, as above. Bibasilar pulmonary edema/atelectasis versus pneumonia, left worse than right. Correlate clinically. Small left pleural effusion.
--- NOTE | ~2024-03-04 | CT_ITS ---
EXAMINATION: CT brain wo con DATE: 03/27/2024 14:02 INDICATION: Encephalopathy TECHNIQUE: Computed tomography (CT) of the head was performed without intravenous contrast. Sagittal and coronal reconstructions were performed. The mA was adjusted according to patient size. Iterative reconstruction technique was employed. The dose-length product was 605.33 mGy-cm. COMPARISON: head CT dated 03/21/2024 FINDINGS: Small region of encephalomalacia in the posterior left frontal lobe consistent with sequela of chroni c infarct. Additional small old lacunar infarct at the posterior limb of the right internal capsule. No acute intracranial hemorrhage, acute infarction or abnormal extra axial fluid collection. There is mild scattered white matter hypoattenuation consistent with chronic small vessel ischemic disease. Ventricles are normal and symmetric. No mass/mass effect. Persistent right mastoid effusion and left otomastoiditis effusion. The orbits are normal. Mucosal thickening in the bilateral sphenoid sinuses. Orogastric tube and endotracheal tube extends through the oral cavity. IMPRESSION: 1. Small old infarcts in the frontal lobe and posterior limb of the right internal capsule. No acute intracranial process. 2. Persistent right mastoid effusion and left otomastoiditis effusion. Reviewed, dictated and finalized at location A. IMPRESSION: 1. Small old infarcts in the frontal lobe and posterior limb of the right inter nal capsule. No acute intracranial process. 2. Persistent right mastoid effusion and left otomastoiditis effusion.
--- NOTE | ~2024-03-04 | CT_ITS ---
EXAMINATION: CT brain wo con DATE: 03/16/2024 09:04 INDICATION: Encephalopathy TECHNIQUE: Computed tomography (CT) of the head was performed without intravenous contrast. Sagittal and coronal reconstructions were performed. The mA was adjusted according to patient size. Iterative reconstruction technique was employed. The dose-length product was 605.33 mGy-cm. COMPARISON: head CT dated 03/10/2024 FINDINGS: Again seen is a small old infarct in the left frontal lobe and additional small old lacunar infarct i n the posterior limb of the right internal capsule. No acute intracranial hemorrhage, acute infarctio n or abnormal extra axial fluid collection. There is mild scattered white matter hypoattenuation cons istent with chronic small vessel ischemic disease. Ventricles are normal and symmetric. No mass/mass effect. Small bilateral mastoid effusions. The orbits and paranasal sinuses are normal. Intracranial calcified cerebral atherosclerosis is noted. IMPRESSION: 1. Small old infarcts at the left frontal lobe and posterior limb of the right internal capsule. No a cute intracranial process. Reviewed, dictated and finalized at location A. IMPRESSION: 1. Small old infarcts at the left frontal lobe and posterior limb of the right internal capsule. No acute intracranial process.
--- NOTE | ~2024-03-04 | XR_ITS ---
EXAMINATION: XR chest 1V portable DATE: 03/20/2024 08:51 INDICATION: Respiratory failure. TECHNIQUE: A single frontal view of the chest was obtained. COMPARISON: Chest single view 03/19/2024, chest CT 03/16/2024 FINDINGS: There are airspace opacities in the mid and lower lung zones. There is a small left pleural effusion. No pneumothorax. There is enlargement of the cardiac silhouette. The endotracheal tube tip is 7.8 cm above the vanessa. A right internal jugular central venous catheter is seen with tip in the superior vena cava. The nasogastric tube tip is beyond the inferior margin of the radiograph, but at least to the stomach. IMPRESSION: 1. Airspace opacities in the mid and lower lung zones with improvement on the left, consistent with a telectasis versus pneumonia. 2. Small left pleural effusion. 3. Enlargement of the cardiac silhouette, likely a combination of cardiomegaly and pericardial effusi on as seen on the prior CT. Reviewed, dictated and finalized at location A. IMPRESSION: 1. Airspace opacities in the mid and lower lung zones with improvement on the l eft, consistent with atelectasis versus pneumonia. 2. Small left pleural effusion. 3. Enlargement of the cardiac silhouette, likely a combination of cardiomegaly and pericardial effusion as seen on the prior CT.
--- NOTE | ~2024-03-04 | XR_ITS ---
Portable chest x-ray Comparison: 03/14/2024 Clinical History: Decompensating respiratory status Findings: There is white out of the left hemithorax. There is minimal haziness right lung base. Car diomediastinal silhouette is stable. Bones and soft tissues are unremarkable. Impression: Whiteout of the left hemithorax suggests very large left pleural effusion. Mild hazy right lung base could reflect minimal pulmonary edema. Reviewed, dictated and finalized at location M. Impression: Whiteout of the left hemithorax suggests very large left pleural effusion. Mild hazy right lung base could reflect minimal pulmonary edema.
--- NOTE | ~2024-03-04 | CT_ITS ---
EXAMINATION: CT brain wo con DATE: 03/10/2024 17:58 INDICATION: Confusion. TECHNIQUE: Computed tomography (CT) of the head was performed without intravenous contrast. The mA wa s adjusted according to patient size. Iterative reconstruction technique was employed. The dose-lengt h product was 756.67 mGy-cm. COMPARISON: Head CT 11/14/2023 FINDINGS: There is an old infarct in left frontal lobe. There are scattered areas of low attenuation in the cerebral white matter, which is within normal limits for the patient's age. There is no intrac ranial hemorrhage, acute infarction, or abnormal intracranial mass lesion. The ventricles are normal in size. The orbits are normal. The paranasal sinuses are clear. The mastoid air cells are normal. C1 ring is ununited posteriorly, a normal variant. There is left frontal scalp soft tissue swelling. IMPRESSION: 1. Old infarct in left frontal lobe. Reviewed, dictated and finalized at location E.
--- NOTE | ~2024-03-04 | XR_ITS ---
EXAMINATION: [id number]_CR DATE: 03/15/2024 15:27 INDICATION: Status post left thoracentesis TECHNIQUE: frontal view of the chest was obtained. COMPARISON: None FINDINGS: Endotracheal tube tip 4.9 cm above the vanessa. Nasogastric tube extends below the left hemidiaphragm with distal tip collimated off the study. Continued improvement in aeration of the left upper lung and decreasing consolidation in the right mi dlung zone. There is persistent consolidation at the left lower lung zone which could represent atele ctasis, pneumonia, residual small left pleural effusion or some combination thereof. Right lung is cl ear. No pulmonary edema in the visualized aerated portions of the lung. No pneumothorax or right-side d pleural effusion. Left heart border is obscured precluding assessment for heart size. There is been prior coronary artery stenting. IMPRESSION: 1. Persistent dense consolidation in the left lower lung zone with decreased consolidation midlung zo ne improved aeration the upper lung zone post left thoracentesis. Residual opacities could represent atelectasis, pneumonia, residual small left pleural effusion or some combination thereof. Reviewed, dictated and finalized at location A. IMPRESSION: 1. Persistent dense consolidation in the left lower lung zone with decreased co nsolidation midlung zone improved aeration the upper lung zone post left thorac entesis. Residual opacities could represent atelectasis, pneumonia, residual sm all left pleural effusion or some combination thereof.
--- NOTE | ~2024-03-04 | XR_ITS ---
Portable chest x-ray Comparison: 03/21/2024 Clinical History: Respiratory failure Findings: Endotracheal tube and NG tube are in satisfactory positions. Retrocardiac consolidation is present with probable small left pleural effusion. Mild haziness right lung base present. Cardiomed iastinal silhouette is stable. Bones and soft tissues are unremarkable. Impression: Support tubes, as above. Small left pleural effusion with left lower lobe atelectasis versus pneumonia. Correlate clinically. Haziness right lung base could reflect pulmonary edema versus additional infection. Reviewed, dictated and finalized at [facility]. Impression: Support tubes, as above. Small left pleural effusion with left lower lobe atelectasis versus pneumonia. Correlate clinically. Haziness right lung base could reflect pulmonary edema versus additional infect ion.
--- NOTE | ~2024-03-04 | US_ITS ---
EXAMINATION: US venous doppler [facility] DATE: 03/28/2024 08:46 INDICATION: Respiratory failure requiring intubation TECHNIQUE: Grayscale ultrasound images without and with compression and Doppler ultrasound images of the left lower extremity veins were obtained. COMPARISON: None. FINDINGS: The visualized portions of left common femoral vein, profunda (deep) femoral vein, femoral vein, popl iteal vein, peroneal veins, posterior tibial veins, gastrocnemius vein and greater saphenous vein out flow are patent. IMPRESSION: 1. No deep venous thrombosis in the left lower limb. Reviewed, dictated and finalized at location A.
--- NOTE | ~2024-03-04 | CT_ITS ---
EXAMINATION: CT chest abdomen pelvis w con DATE: 03/07/2024 14:37 INDICATION: Hypotension after percutaneous coronary intervention. TECHNIQUE: Computed tomography (CT) of the chest, abdomen, and pelvis was performed with 100 mL Omnip aque 350 intravenous contrast. Automated exposure control and iterative reconstruction technique were employed. The dose-length product was 1681.72 mGy-cm. COMPARISON: Chest CT 01/21/2020, thoracic spine CT 11/14/23 FINDINGS: CHEST CT: The lungs demonstrate mild atelectasis. A calcified right lung nodule and calcified right hilar lymph nodes are consistent with old granulomatous disease. There is a moderate-sized left pleural effusion with passive atelectasis in left lower lobe. There is a small right pleural effusion. The heart size is normal. There is a large pericardial effusion with pericardial enhancement. There is calcified at herosclerosis of the aorta and many of the other arteries. There are coronary artery calcifications. There is moderate thoracic spondylosis. There is mild chronic wedging of multiple teeth bodies. ABDOMEN/PELVIS CT: The liver, gallbladder, spleen, pancreas, and adrenal glands are normal. There is moderate atrophy of right kidney and mild atrophy of left kidney. There is a 12 mm cyst in left kidney. There are bilate ral inguinal hernias containing fat. There are no dilated loops of bowel. The appendix is normal. The re is a total occlusion of right superficial femoral artery. There is a thrombosed graft in right thi gh. There is total occlusion of left superficial femoral artery. There is no significant stenosis of celiac axis, superior mesenteric artery, or left renal artery. There is moderate stenosis of right re nal artery. There is moderate stenosis of inferior mesenteric artery. There is no retroperitoneal hem atoma. There is moderate lumbar spondylosis. There is mild chronic anterior wedging of L1 vertebral b meaghan. IMPRESSION: 1. Large pericardial effusion, new from 11/14/23. Pericardial enhancement suggests an exudate. 2. Small right and moderate-sized left pleural effusions. 3. Arterial occlusive disease. Reviewed, dictated and finalized at location E. IMPRESSION: 1. Large pericardial effusion, new from 11/14/23. Pericardial enhancement suggest s an exudate. 2. Small right and moderate-sized left pleural effusions. 3. Arterial occlusive disease.
--- NOTE | ~2024-03-04 | NM_ITS ---
EXAMINATION: MI hepatobiliary wo pharm DATE: 03/22/2024 16:21 INDICATION: Acute cholecystitis. COMPARISON: CT 03/16/2024 TECHNIQUE: 4.8 mCi Tc-99m mebrofenin (Choletec) was administered intravenously. Scintigraphic images of the abdomen were obtained for one hour. Delayed images were obtained at 4 hours. FINDINGS: There is normal clearance of radiotracer from the blood pool. There is homogeneous tracer u ptake by the liver. Activity progresses to the bowel and gallbladder. IMPRESSION: 1. Patent cystic duct and common duct. Reviewed, dictated and finalized at location A.
--- NOTE | ~2024-03-04 | US_ITS ---
EXAMINATION: US renal BI DATE: 03/09/2024 16:42 INDICATION: SIM TECHNIQUE: Multiple grayscale and Doppler ultrasound images of the kidneys were obtained. COMPARISON: CT cap 03/07/2024 FINDINGS: The right kidney measures 8.8 x 3.4 x 3.6 cm. The left kidney measures 13.7 x 6.7 x 5.3 cm. The kidne ys demonstrate normal parenchymal echogenicity. Prominent renal sinus fat. Bilateral cortical thinnin g. There is no hydronephrosis. The bladder is emptied by a Ayoub catheter and therefore not evaluated . Right pleural fluid collection. IMPRESSION: Bilateral cortical atrophy. Moderate right renal atrophy. Renal sinus lipomatosis. Small right pleura l effusion. Reviewed, dictated and finalized at location K. IMPRESSION: Bilateral cortical atrophy. Moderate right renal atrophy. Renal sinus lipomatos is. Small right pleural effusion.
--- NOTE | ~2024-03-04 | XR_ITS ---
Portable chest x-ray Comparison: 11/14/2023 Clinical History: Atrial fibrillation, hypoxia Findings: Lungs are clear, without focal consolidation or pleural effusion. Cardiomediastinal silho uette is enlarged. Bones and soft tissues are unremarkable. Impression: Clear lungs. Probable cardiomegaly. Reviewed, dictated and finalized at location . Impression: Clear lungs. Probable cardiomegaly.
--- NOTE | ~2024-03-04 | XR_ITS ---
Portable chest x-ray Comparison: 03/27/2024 Clinical History: Intubation Findings: Endotracheal tube tip is just below the thoracic inlet. NG tube in place, side port just b elow the diaphragm. There is improving retrocardiac consolidation. Right lung clear. Cardiomediastin al silhouette is stable. Bones and soft tissues are unremarkable. Impression: Mild interval improvement in retrocardiac consolidation. Support tubes, as above. Consider advancement of the endotracheal tube and NG tube. Reviewed, dictated and finalized at location . Impression: Mild interval improvement in retrocardiac consolidation. Support tubes, as above. Consider advancement of the endotracheal tube and NG t ube.
--- NOTE | 2024-03-04 11:21 | ECG_ITS ---
SEE SCANNED COPY FOR CONFIRMED REPORT MTDD
--- NOTE | 2024-03-04 11:30 | ED.AMS ---
HPI - Altered Mental Status General Chief Complaint: Altered Mental Status Stated Complaint: ams Time Seen by Provider: 03/04/24 11:08 History of Present Illness HPI narrative: Pt presents with not acting himself per EMS and NH staff. Pt admits to having an episode of pressure in chest about an hour or two ago which lasted about 30 minutes and resolved. Pt has denies CP now but still has some SOB. Pt admits to swelling in legs. Pt denies black or bloody stools or abdominal pain. Related Data Home Medications Medication Instructions Recorded Confirmed cyanocobalamin (vitamin B-12) 1,000 mcg PO DAILY 11/08/19 03/04/24 2,500 mcg tablet insulin syringe-needle U-100 11/14 #90 ea 03/05/20 03/04/24 mL 31 gauge x 15/64 nitroglycerin 0.4 mg sublingual 0.4 mg sublingual Q5M PRN Chest 03/05/20 03/04/24 tablet Pain pen needle, diabetic 31 gauge x #30 ea 03/05/20 03/04/2401/26 sodium chloride 0.65 % nasal spray 2 spray intranasal Q4H PRN Nasal 03/17/20 03/04/24 aerosol (Saline Nasal) Congestion Benadryl 50 mg PO Q6H PRN Itching 11/15/23 03/04/24 GlycoLax 17 g PO DAILY PRN Constipation 11/15/23 03/04/24 Senna Plus 1 tablet PO DAILY PRN Constipation 11/15/23 03/04/24 bupropion HCl 100 mg tablet,12 hr 100 mg PO DAILY 11/15/23 03/04/24 sustained-release clotrimazole 1 % topical cream 1 applic topical BID 11/15/23 03/04/24 insulin lispro 100 unit/mL 17 unit subcut AC 11/15/23 03/04/24 subcutaneous solution (Admelog U-100 Insulin lispro) magnesium oxide 400 mg PO DAILY 11/15/23 03/04/24 melatonin 10 mg PO HS PRN Insomnia 11/15/23 03/04/24 metoclopramide HCl 10 mg tablet 10 mg PO Q6H PRN Nausea 11/15/23 03/04/24 pregabalin 150 mg capsule 150 mg PO TID 11/15/23 03/04/24 tramadol 50 mg tablet 50 mg PO Q12H PRN Pain 11/15/23 03/04/24 albuterol sulfate 90 mcg/actuation 2 puff inhalation Q4H PRN 03/04/24 03/04/24 aerosol inhaler Shortness Of Breath Or Wheezing bisacodyl 10 mg rectal suppository 10 mg RECTAL DAILY PRN Constipation 03/04/24 03/04/24 budesonide-formoterol HFA 160 2 puff inhalation Q12H 03/04/24 03/04/24 mcg-4.5 mcg/actuation aerosol inhaler (Symbicort) cefuroxime axetil 500 mg tablet 500 mg PO BID 03/04/24 03/04/24 cyclobenzaprine 10 mg tablet 10 mg PO Q8H PRN muscle spasm 03/04/24 03/04/24 diphenhydramine HCl 50 mg capsule 50 mg PO Q6H PRN Itching 03/04/24 03/04/24 glimepiride 4 mg tablet 4 mg PO Q12H PRN Blood Sugar 03/04/24 03/04/24 magnesium citrate (Citroma oral 300 ml PO DAILY PRN Constipation 03/04/24 03/04/24 solution) magnesium hydroxide 400 mg/5 mL 30 ml PO HS PRN Constipation 03/04/24 03/04/24 oral suspension (Milk of Magnesia) sodium phosphates 19 gram-7 118 ml RECTAL ONCE PRN Constipation 03/04/24 03/04/24 gram/118 mL enema (Fleet Enema) tamsulosin 0.4 mg capsule (Flomax) 0.4 mg PO DAILY 03/04/24 03/04/24 Allergies Allergy/AdvReac Type Severity Reaction Status Date / Time amoxicillin Allergy Severe shortness Verified 01/27/21 13:10 of breath Penicillins Allergy Severe Anaphylactic Verified 01/27/21 13:10 Shock trimethoprim Allergy Intermediate Unknown Verified 01/27/21 13:10 cefuroxime Allergy Unknown Verified 08/04/22 16:29 cephalexin Allergy Unknown Verified 08/04/22 16:29 clindamycin Allergy Unknown Verified 08/04/22 16:29 gabapentin Allergy Unknown Verified 08/04/22 16:29 Review of Systems Review of Systems: All systems reviewed & are unremarkable except as noted in HPI and below PMFSH Past Medical History Medical History ADHD (attention deficit hyperactivity disorder) Cellulitis of both feet Chronic kidney disease, stage 3 Baseline creatinine between 1.5 and 1.60. Chronic pain syndrome On long-term opiates. Coronary artery disease With history of stents. Degenerative disc disease Diabetic foot infection Gangrene of toe of right foot GERD (gastroesophageal reflux disease) History of DVT of lower extremity Hos
[2024-03-04 11:31] LABS: Basophils Absolute Auto 0.1 K/mm3 (0.0-0.1); Basophils Percent Auto 0.4 % (0.2-1.2); Eosinophils Percent Auto 0.3 % (0-4.4); Hematocrit 28.1 % (42.0-52.0); Hemoglobin 8.6 g/dL (14.0-18.0); Immature Granulocyte Absolute 0.07 K/mm3 (0.00-0.031); Immature Granulocyte Percent A 0.5 % (0-0.5); Lymphocytes Absolute Auto 1.38 K/mm3 (0.9-3.2); Lymphocytes Percent Auto 10.2 % (18.3-44.2); Mean Corpuscular HGB Conc 30.6 g/dl (32-36); Mean Corpuscular Hemoglobin 29.1 pg (26-34); Mean Corpuscular Volume 94.9 fl (80-100); Mean Platelet Volume 10.5 fl (7.4-10.4); Monocytes Absolute Auto 0.8 K/mm3 (0.1-0.6); Monocytes Percent Auto 5.9 % (2.6-8.5); Neutrophils Absolute Auto 11.3 K/mm3 (1.3-6.7); Neutrophils Percent Auto 82.7 % (45.5-73.1); Platelet Count Result 245 k/mm3 (150-375); Red Blood Count 2.96 M/mm3 (4.6-6.20); White Blood Count 13.6 K/mm3 (4.5-10.0)
[2024-03-04] MEDS: ASPIRIN 81 MG CHEWABLE TABLET 324 MG PO (11:31)
[2024-03-04] MEDS: TICAGRELOR 90 MG TABLET 180 MG PO (11:31)
--- NOTE | 2024-03-04 11:32 | PC.NURSE ---
Pt reports taking one 81 mg ASA this AM.
--- NOTE | 2024-03-04 11:37 | PC.NURSE ---
1117- Dr. Cuellar diagnosis Stemi per pt EKG. Code Stemi called. Pt reports to that he has not had any chest pain. States had an episode of severe neck pain that resolved on its own. Denies SOB or syncope. VSS
--- NOTE | 2024-03-04 11:39 | PC.NURSE ---
1130 Dr. Dorsey & wood preserving plant laborer staff at pt bedside. Dr. Sarabia examed pt, took health history. Pt related to Dr. Dorsey I don't ever have chest pain when I have heart attacks . Pt states has had joy archuleta Pt unsure of date of procedure & mask layout designer. Pt reports It's been awhile since I have seen mask layout designer . Unsure if stents have been placed in the past. Pt prepared for [employer] per protocol.
[2024-03-04 11:42] LABS: INR 1.2; Partial Thromboplastin Time 32.4 Seconds (22.3-36.8); Prothrombin Time 16.1 Seconds (11.1-14.7)
[2024-03-04 11:43] LABS: Alanine Aminotransferase 64 U/L (6-50); Albumin Level 3.7 g/dL (3.5-5.1); Alkaline Phosphatase 104 U/L (38-126); Anion Gap 10 mmol/L (4-12); Aspartate Amino Transferase 55 U/L (17-59); Bilirubin,Total 0.6 mg/dL (0.2-1.3); Blood Urea Nitrogen 76 mg/dL (9-20); Calcium 9.1 mg/dL (8.4-10.2); Carbon Dioxide 17 mmol/L (22-30); Chloride 107 mmol/L (98-107); Cholesterol 144 mg/dL (0-200); Estimated Glomerular Filt Rate 26; Glucose 225 mg/dL (65-110); HDL Direct 21 mg/dL; Potassium 5.2 mmol/L (3.4-5.0); Sodium 134 mmol/L (137-145); Triglycerides 148 mg/dL (<150)
[2024-03-04 11:54] LABS: Troponin I 0.033 ng/mL (0.000-0.034)
[2024-03-04 11:55] LABS: LDL Cholesterol Direct 81 mg/dL
--- NOTE | 2024-03-04 12:34 | ECG_ITS ---
SEE SCANNED COPY FOR CONFIRMED REPORT MTDD
--- NOTE | 2024-03-04 12:38 | PM.IMHP ---
H&P: HPI History of Present Illness Date/Time: 03/04/24 12:38 Chief Complaint: neck pain Narrative: this is a 63-year-old man being seen in the emergency room where STEMI has been declared by the ED staff. He is a patient with coronary artery disease and peripheral vascular disease details of which are unknown to me prior to this encounter. He is a intermediate resident who apparently was experiencing some anterior throat pain/neck pain earlier today. He says the pain but at this time has resolved his electrocardiogram however shows acute inferolateral ST-elevation [place]. For this reason STEMI has been activated. He says he has had previous coronary interventions details are unknown to me. He also has had previous attempts at lower extremity revascularization which have been unsuccessful as he has a right tzyci-cak-krre amputation. He does have diabetes and dyslipidemia. Review of Systems Review of Systems: ROS unobtainable: Yes unobtainable due to medical condition PMFSH Past Medical History Medical History ADHD (attention deficit hyperactivity disorder) Cellulitis of both feet Chronic kidney disease, stage 3 Baseline creatinine between 1.5 and 1.60. Chronic pain syndrome On long-term opiates. Coronary artery disease With history of stents. Degenerative disc disease Diabetic foot infection Gangrene of toe of right foot GERD (gastroesophageal reflux disease) History of DVT of lower extremity Hospital discharge follow-up Hyperlipidemia Hypertension Insulin dependent type 2 diabetes mellitus Myocardial infarction Osteoarthritis Peripheral arterial disease Status post right lower extremity revascularization per Dr. Altman. Shortness of breath on exertion Tobacco abuse Surgical History Surgical History H/O cardiac catheterization History of left-sided carotid endarterectomy History of revascularization procedure of lower extremity Right lower extremity angioplasty and stent per Dr. Hurt. Hx of right BKA Family History Family History Father , age 91 CAD Acute myocardial infarction Mother , age 85 CVA Cerebrovascular accident Other Family history of arthritis Family history of cardiovascular disease Family history of chronic obstructive pulmonary disease Family history of mental disorder Hypertension Social History Social History Social History: The patient is currently at [facility]. He designates his cousin Jaskaran Carr as his surrogate decision-maker and he wishes to be a full code. 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 He smokes between 5 and 20 cigarettes and 20 cigarettes/day. No drug use. He has no children. He has never been . Smoking packs per day: 0.5 Smoking cigarettes per day: 10.0 Years smoked: 44 Smoking pack-years: 22.00 Smoking status: Current every day smoker Second hand tobacco smoke exposure: Yes Additional smoking assessment comments: patient stated i smoke one cigar every 6 hours Alcohol intake: former Substance use: current Substance use type: does not use Other substance usage details: tried marijuana for pain relief 03/16/2020 Last use: 03/16/2020 Do You Feel Safe in your Home?: Yes Lack of Transportation: No Lack of Food: Never True Current Housing: I Have Housing Concerned About Future Housing: No Difficulty Paying Gas/Electric Bills: No Difficulty Paying for Meds: No Currently Unemployed: No Education: Bachelor's Degree Difficulty w/ Childcare or Family Care: No Gender identity (if verbalized by the patient): Male Spiritual care concerns: No Agree to blood products: Yes Meds Home Medications and Allergies Home Medications Medication Instructions Rec
--- NOTE | 2024-03-04 12:42 | WPDCARDPROC ---
Cardiac Cath Procedure Note Date of procedure:: 03/04/24 Performing physician:: Horacio Cleaning MD Indication:: inferolateral ST-elevation TN Brief clinical history:: this is a 63-year-old man with history of coronary disease, previous TN and PCI details of which are unknown to me. He presents today from the intermediate where he resides with an episode of neck pain that occurred earlier this morning and ECG evidence of acute inferolateral ST segment elevation TN. he has previous severe peripheral vascular disease and has had a right lower extremity [id number] amputation. Procedure Procedure performed:: Emergency coronary angiography emergency PCI(KENYA) to the mid circumflex trunk Sedation/Medication given:: fentanyl 75 mg Versed 2 mg case start time 11:49 a.m. case end time 12:26 p.m. sedation provided by Lyric Gutierres RN, trained observer Access site:: left femoral artery Estimated blood loss:: 50 cc Procedure note:: patient was brought to the cardiac blood bank laboratory professional in the emergent setting described above. There was a pulse palpable in the left groin so the left femoral triangle was prepped and draped in the normal fashion. Anesthesia was given with 10 cc of lidocaine infiltrated locally. With some difficulty number punctures were made but ultimately the left femoral artery was accessed and a wooly wire was advanced into the central aorta. The peripheral vascular disease made arterial access more difficult and challenging for this reason. Following establishment of access a 6 [place] vascular sheath was placed. The patient had received aspirin and 180 mg of Brilinta in the emergency room was given no additional anti-platelet therapy in the blood bank laboratory professional. The left coronary was engaged and injected using a standard 5 [place] FL4 catheter for the right coronary artery was engaged and injected using standard 5 [place] JR4 catheter. Cineangiograms were then reviewed and following this PCI of the circumflex was recommended. Prior to PCI he was given bolus and infusion of Angiomax with reduced renal doses. He underwent PCI than as detailed below. Following completion of intervention the case was terminated the sheath was sutured into position with 2-0 silk and was taken to the ICU for post mi/PCI recovery. Procedure was well tolerated and uncomplicated. Findings:: Hemodynamics: Central aortic pressure was 112/80, left ventricle was not entered during this procedure the left main coronary artery is medium in caliber and nicely patent the left anterior descending is large in caliber proximally and medium in caliber mid to distally. There is a proximal stent in the LAD which is nicely patent. The ostial segment of the LAD has mild irregularity with mild atherosclerosis which is not flow-limiting. There was RADHA 3 flow in the LAD. Distal to the stent there is no significant disease. The circumflex is a medium caliber artery giving rise to a 1st medium size OM branch of the after this branch arises the trunk of the circumflex has a 95% stenosis with angiographically good RADHA 3 flow into the distal posterior branch. The right coronary artery is moderate to large caliber dominant to the posterior circulation. There is significant proximal and ostial calcification of the right coronary artery and there is visible stent material in the 2nd portion of the artery. There were no stenotic lesions however seen in the right coronary artery the stented segment remains patent and there is good RADHA 3 flow in the vessel. Intervention: The left coronary artery was engaged using 6 [place] CLS 3.5 guiding catheter. I used a 0.014 BMW wire to wire the trunk of the circumflex, target lesion and into the distal posterior branch. The target lesion was then pre-dilated using a 2.5 by 20 mm Kishor balloon at 7 atmospheres which provided nice patency. I then stented the target lesion using a 2.75 by 18 mm Orsiro at nominal pressure
--- NOTE | 2024-03-04 12:45 | ADMGEN ---
This patient, Noel Rodriguez, was admitted to Intensive Care Unit-8. Patient/family oriented to hospital policies and general routines including ID bracelet, bed and alarms, visiting hours, pain management, procedures, bathroom and other care routines, personal items, smoking policy, room service/diet, and visiting hours. Information on how to activate the Rapid Response Team has been discussed. Patient/Family are encouraged to report perceived risks to care and to ask questions if they do not understand what they are told or what they should do.
[2024-03-04] MEDS: SODIUM CHLORIDE 0.9% IV 1,000 ML 125 ML IV CONT (13:11)
--- NOTE | 2024-03-04 13:15 | WPDCNINT ---
Assessment and Plan Assessment and plan (1) ST elevation (STEMI) myocardial infarction: Code(s): I21.3 - ST elevation (STEMI) myocardial infarction of unspecified site Status: Acute Assessment and Plan: Patient presented with chest pain, neck pain, shortness of breath to the ED, EKG showed inferior lateral ST-elevation AL, patient was taken to the cardiac recyclable products sorter status post PTCA/PCI with KENYA x1 to mid RCA which was 90% blocked and was the culprit vessel. -no LV gram was performed due to acute on chronic kidney disease -cardiology following the patient, continue aspirin, Brilinta, rosuvastatin, metoprolol -will order echocardiogram (2) Acute renal failure superimposed on stage 3 chronic kidney disease: Code(s): N17.9 - Acute kidney failure, unspecified; N18.30 - Chronic kidney disease, stage 3 unspecified Status: Acute Assessment and Plan: Acute on chronic renal disease -creatinine on admission is 2.50 (normal creatinine is between 1.30-1.70) -patient receiving post catheterization IV fluids -will encourage p.o. intake once able -to monitor renal function, electrolytes and urine output (3) Insulin dependent type 2 diabetes mellitus: Code(s): E11.9 - Type 2 diabetes mellitus without complications; Z79.4 - shelter (current) use of insulin Status: Acute Assessment and Plan: Accu-Cheks and sliding scale insulin (4) Peripheral vascular disease: Code(s): I73.9 - Peripheral vascular disease, unspecified Status: Acute Assessment and Plan: Chronic -right BKA -dopplerable pedal pulses on the left (5) Anemia: Code(s): D64.9 - Anemia, unspecified Status: Acute Assessment and Plan: Chronic anemia, monitor hemoglobin Plan DVT prophylaxis: Status post cardiac catheterization Stress ulcer prophylaxis: Not indicated Nutrition: Heart healthy diet Code Status: Full code Critical Care Time Spent: 45 minutes Due to a high probability of clinically significant, life threatening deterioration, the patient required my highest level of preparedness to intervene emergently and I personally spent this critical care time directly and personally managing the patient. This critical care time included obtaining a history; examining the patient; pulse oximetry; ordering and review of studies; arranging urgent treatment with development of a management plan; evaluation of patient's response to treatment; frequent reassessment; and discussions with other providers. It was exclusive of separately billable procedures and treating other patients and teaching time. Please see Assessment and Plan section and the rest of the note for further information on patient assessment and treatment This dictation may have been done utilizing a voice recognition system. Attempts have been made to correct errors. However, there may be uncorrected grammatical, spelling, and recognitions errors present. Grants Analyst Consult Note Consult date: 03/04/24 Reason for consult: Chest pain, shortness of breath, inferior ST-elevation AL status post PTCA/PCI with KENYA stent x1 to mid circumflex HPI: Noel Rodriguez is a 63 year old male with past medical history of coronary artery disease, previous AL and PCI, peripheral arterial disease, ADHD, chronic kidney disease stage 3, chronic pain syndrome, DJD, history of right BKA, history of tobacco use, insulin-dependent diabetes, essential hypertension, hyperlipidemia presented the ED on 03/04/2024 with complains of chest pain along with neck pain and shortness of breath. EKG in the ER showed acute inferior lateral ST-elevation AL, patient was taken to the cardiac recyclable products sorter where he had a PTCA/PCI with KENYA x1 to mid circumflex which was 90% occluded and thought to be the culprit artery. No LV gram was performed due to elevated creatinine in the in kidney disease. Patient was transferred to the ICU for further management Patient seen and examined, yasmin
[2024-03-04] MEDS: ACETAMINOPHEN 325 MG TABLET 650 MG PO (16:07)
[2024-03-04 16:12] LABS: Glucose Point of Care 182 mg/dl (65-105)
[2024-03-04 16:38] LABS: Troponin I 0.025 ng/mL (0.000-0.034)
[2024-03-04 17:53] LABS: Glucose Point of Care 206 mg/dl (65-105)
[2024-03-04 19:48] LABS: Troponin I 0.026 ng/mL (0.000-0.034)
[2024-03-04] MEDS: METOPROLOL TARTRATE 25 MG TABLET PO (21:22)
[2024-03-04] MEDS: TICAGRELOR 90 MG TABLET PO (21:22)
[2024-03-04] MEDS: INSULIN ASPART (*BKC) 100 UNITS/ML SUB-Q (21:29)
[2024-03-04 21:37] LABS: Glucose Point of Care 201 mg/dl (65-105)
[2024-03-04] MEDS: HYDROcodone/acetaminophen (*CRX) 5-325 MG TABLET 1 TAB PO (23:44)
[2024-03-05] VITALS (20 sets, daily range): BP systolic 117–179; BP diastolic 47–114; PULSE 72–98; RESP 14–21; TEMP 36.7–37.1; O2SAT 80–98
--- NOTE | 2024-03-05 05:11 | ECG_ITS ---
SEE SCANNED COPY FOR CONFIRMED REPORT MTDD
[2024-03-05 05:35] LABS: Basophils Percent Auto 0.3 % (0.2-1.2); Eosinophils Percent Auto 0.2 % (0-4.4); Hematocrit 28.6 % (42.0-52.0); Hemoglobin 8.3 g/dL (14.0-18.0); Immature Granulocyte Absolute 0.07 K/mm3 (0.00-0.031); Immature Granulocyte Percent A 0.5 % (0-0.5); Lymphocytes Absolute Auto 1.19 K/mm3 (0.9-3.2); Lymphocytes Percent Auto 9.2 % (18.3-44.2); Mean Corpuscular Hemoglobin 28.6 pg (26-34); Mean Corpuscular Volume 98.6 fl (80-100); Mean Platelet Volume 10.9 fl (7.4-10.4); Monocytes Absolute Auto 0.9 K/mm3 (0.1-0.6); Monocytes Percent Auto 6.6 % (2.6-8.5); Neutrophils Absolute Auto 10.8 K/mm3 (1.3-6.7); Neutrophils Percent Auto 83.2 % (45.5-73.1); Platelet Count Result 259 k/mm3 (150-375); Red Cell Distribution Width 16.2 % (11.5-14.5)
[2024-03-05 05:45] LABS: Alanine Aminotransferase 69 U/L (6-50); Albumin Level 3.5 g/dL (3.5-5.1); Alkaline Phosphatase 144 U/L (38-126); Anion Gap 9 mmol/L (4-12); Aspartate Amino Transferase 39 U/L (17-59); Bilirubin,Total 0.6 mg/dL (0.2-1.3); Blood Urea Nitrogen 64 mg/dL (9-20); Calcium 8.8 mg/dL (8.4-10.2); Carbon Dioxide 14 mmol/L (22-30); Chloride 110 mmol/L (98-107); Estimated Glomerular Filt Rate 34; Glucose 297 mg/dL (65-110); Magnesium 2.6 mg/dL (1.6-2.3); Phosphorus 4.2 mg/dL (2.5-4.5); Potassium 5.3 mmol/L (3.4-5.0); Sodium 133 mmol/L (137-145)
[2024-03-05 05:57] LABS: Platelet Estimate Adequate (Adequate)
[2024-03-05 05:58] LABS: Anisocytosis 1+; Burr Cells 2+
[2024-03-05 05:59] LABS: Schistocytes None Seen
--- NOTE | 2024-03-05 08:00 | ECHO_ITS ---
Patient Info Name: Noel Rodriguez Age: 63 years : 1960 Gender: Male Ht: 70 in Wt: 255 lbs BSA: 2.43 m2 HR: 85 bpm BP: 147 / 58 mmHg Heart Rhythm: Sinus Rhythm Technical Quality: Fair Exam Date: 03/05/2024 7:45 AM Exam Location: Echo Lab Patient Status: Inpatient Admit Date: 03/04/2024 Staff Ordering Physician: Leticia Vazquez MD Managed Security Sales Consultant: An Gamboa RDCS Attending Provider: Horacio Cleaning MD Referring Physician: Taylor MOSCOSO; Exam Type: CA echo dop color flow w con Study Info Indications - stemi Complete two-dimensional, color flow and Doppler transthoracic echocardiogram is performed with contrast to opacify the left ventricle and to improve the deliniation of the left ventricle endocardial borders. Contrast/Agitated Saline Contrast/Ag. Saline: Definity Amount: 2.00 ml Administered By: An Gamboa RDCS Existing IV Access: Yes IV Access Condition: patent with no signs of infiltration Summary 1. Technically difficult study with limited views. 2. Left ventricular chamber dimension is normal. 3. Left ventricular systolic function is normal, estimated at 65-70%. 4. There is mildly increased left ventricular wall thickness. 5. The left ventricular diastolic function is grade I diastolic dysfunction. 6. Right ventricular systolic function is normal. 7. There is small circumferential pericardial effusion. 8. There is no significant valvular disease appreciated on this study. Left Ventricle Left ventricular chamber dimension is normal. Left ventricular systolic function is normal, estimated at 65-70%. There is mildly increased left ventricular wall thickness. The left ventricular diastolic function is grade I diastolic dysfunction. Right Ventricle Right ventricular chamber dimension is normal. Right ventricular systolic function is normal. Left Atria Left atrial chamber dimension is normal. Right Atria Right atrial chamber dimension is normal. Atrial Septum Intact interatrial septum visualized by color flow imaging. Aortic Valve The aortic valve is not well visualized. There is no aortic valve stenosis. There is no aortic valve regurgitation. There is mild aortic valve calcification. Pulmonic Valve The pulmonic valve is not well visualized. Mitral Valve There is trace mitral valve regurgitation. The mitral valve annulus is mildly calcified. Tricuspid Valve There is trace tricuspid valve regurgitation. Pericardium/Pleural There is small circumferential pericardial effusion. Inferior Vena Cava Inferior vena cava is not well visualized. Aorta The aortic root size at the sinus of Valsalva is normal. Left Ventricular Outflow Tract Name Value Normal LVOT 2D LVOT Diameter 2.05 cm LVOT Doppler LVOT Peak Gradient 6 mmHg LVOT Mean Gradient 3 mmHg LVOT VTI 24.14 cm LVOT VTI/AV VTI Ratio 0.95 LVOT Stroke Volume 79.89 ml LVOT CO 6.88 l/min LVOT CI 2.83 L/min/m2 Pulmonic Valve ---
--- NOTE | 2024-03-05 08:42 | ECG_ITS ---
SEE SCANNED COPY FOR CONFIRMED REPORT MTDD
[2024-03-05] MEDS: ROSUVASTATIN 10 MG TABLET 20 MG PO (09:19)
[2024-03-05] MEDS: METOPROLOL TARTRATE 25 MG TABLET PO ×2 (09:20→20:52)
[2024-03-05] MEDS: ASPIRIN 81 MG CHEWABLE TABLET PO (09:20)
[2024-03-05] MEDS: PREGABALIN (*CRX) 75 MG CAPSULE 150 MG PO ×3 (09:21→17:43)
[2024-03-05] MEDS: TICAGRELOR 90 MG TABLET PO ×2 (09:21→20:53)
[2024-03-05] MEDS: TAMSULOSIN HCL 0.4 MG CAPSULE PO (09:21)
[2024-03-05] MEDS: SODIUM ZIRCONIUM CYCLOSILICATE 10 GM POWD.PACK PO ×2 (09:26→17:43)
[2024-03-05] MEDS: SODIUM BICARBONATE 8.4% 150 MEQ in WATER, STERILE FOR INJECTION 950 ML 75 MEQ IV CONT ×2 (09:27→23:34)
[2024-03-05] MEDS: PERFLUTREN LIPID MICROSPHERES 1.5 ML VIAL DILUTED TO 10 ML TOTAL VOLUME IV PUSH (09:30)
--- NOTE | 2024-03-05 09:33 | WPDINTPN ---
Progress Note: A&P Assessment and Plan (1) ST elevation (STEMI) myocardial infarction: Code(s): I21.3 - ST elevation (STEMI) myocardial infarction of unspecified site Status: Acute Assessment and Plan: Patient presented with chest pain, neck pain, shortness of breath to the ED, EKG showed inferior lateral ST-elevation [place], patient was taken to the cardiac veterinary laboratory diagnostician status post PTCA/PCI with KENYA x1 to mid RCA which was 90% blocked and was the culprit vessel. -no LV gram was performed due to acute on chronic kidney disease -cardiology following the patient, continue aspirin, Brilinta, rosuvastatin, metoprolol -pending echocardiogram -EKG reviewed this morning and shows diffuse ST changes which are unchanged previous EKG -current chest pain appears noncardiac in nature (2) Acute renal failure superimposed on stage 3 chronic kidney disease: Code(s): N17.9 - Acute kidney failure, unspecified; N18.30 - Chronic kidney disease, stage 3 unspecified Status: Acute Assessment and Plan: Acute on chronic renal disease -creatinine on admission is 2.50 (normal creatinine is between 1.30-1.70) -patient receiving post catheterization IV fluids and creatinine is improved to 0.0 -will continue IV fluids for another 24 hours decrease rate and change to bicarb -consult nephrology -p.o. 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 Status: Acute Assessment and Plan: Accu-Cheks and sliding scale insulin Resume Lantus and with meal insulin (4) Peripheral vascular disease: Code(s): I73.9 - Peripheral vascular disease, unspecified Status: Acute Assessment and Plan: Chronic -right BKA -dopplerable pedal pulses on the left (5) Anemia: Code(s): D64.9 - Anemia, unspecified Status: Acute Assessment and Plan: Chronic anemia, monitor hemoglobin Plan DVT prophylaxis: Start Lovenox Stress ulcer prophylaxis: Not indicated Nutrition: Heart healthy diet Code Status: Full code Transfer to step-down unit Subjective Date/time seen: 03/05/24 Overnight events reviewed. Afebrile, good urine output On room air He states he is having pain left side of his chest. Rates it at 10/10, sharp, no radiation, worse with deep breathing and coughing. Patient states her current pain is different from the pain that he presented with Denies any shortness of breath or cough. No nausea vomiting headache dizziness lightheadedness. All other systems were reviewed and were negative Sinus rhythm on the monitor Other Vitals acceptable Review of Systems Review of Systems: All systems reviewed & are unremarkable except as noted in HPI and below Exam Narrative: General: Pleasant gentleman in no acute distress HEENT:? Pupils equal and reactive, sclerae is clear, moist oral mucosa Neck:? Supple Respiratory:? Clear to auscultation bilaterally, decreased at bases, no wheezing Cardiac:? S1-S2 was normal, regular rate and rhythm Abdomen:? Soft, nontender, nondistended, obese Extremities:? Right BKA, dopplerable pedal pulses on the left, no edema Neuro:? Patient is awake, alert, oriented, nonfocal Skin:? Chronic venous stasis changes Psych:? Normal mentation and affect Objective Data Vital Signs Vital Signs: Vital Signs - 24 hr 03/04/24 10:56 03/04/24 10:56 03/04/24 11:34 Temperature 36.6 C 36.4 C Pulse Rate 69 66 Respiratory Rate 16 16 Blood Pressure 117/74 Pulse Oximetry 100 97 100 Oxygen Delivery Room Air Room Air 03/04/24 12:45 03/04/24 14:00 03/04/24 14:00 Temperature Pulse Rate 66 65 65 Respiratory Rate 17 13 Blood Pressure 110/41 L 104/51 L Pulse Oximetry 100 100 Oxygen Delivery 03/04/24 15:00 03/04/24 16:00 04
[2024-03-05] MEDS: INSULIN ASPART (*BKC) 100 UNITS/ML SUB-Q ×4 (09:43→20:52)
[2024-03-05] MEDS: INSULIN GLARGINE (*BKC) 100 UNITS/ML 30 UNITS SUB-Q (09:44)
[2024-03-05] MEDS: HYDROcodone/acetaminophen (*CRX) 5-325 MG TABLET 1 TAB PO ×2 (09:44→14:45)
[2024-03-05 09:55] LABS: Glucose Point of Care 330 mg/dl (65-105)
--- NOTE | 2024-03-05 10:05 | PM.PNCARD ---
Progress Note: A&P Assessment and Plan (1) ST elevation (STEMI) myocardial infarction: Code(s): I21.3 - ST elevation (STEMI) myocardial infarction of unspecified site Status: Acute Assessment and Plan: Presented with inferolateral STEMI. Cardiac catheterization 03/04 showed: 1.?Right coronary dominant circulation with previous mid RCA and proximal LAD stents that remained patent 2. Mild non flow-limiting disease in the LAD ostial 3. High-grade stenosis in the circumflex of 90% which appears to be the culprit for the patient's presentation today.? This was treated with the two Orsiro? drug-eluting stents detailed above to treat the target lesion and also to treat a limited edge dissection at the distal margin of the original device after its deployment.? Angiographic result at the end of the procedure was excellent. 4.?Difficult exam because of peripheral vascular disease and challenging peripheral access Patient to be on ASA 81mg once daily indefinitely, Brilinta 90mg BID for at least 1 year. Continue high-intensity statin, beta mike. Echocardiogram pending. Patient having chest pain this morning, has very easily reproducible chest wall tenderness upon examination. Will give pain medications. Will also start Imdur for anti-anginal relief. This is a patient of Dr. Guerra. Patient will need to follow up with him as an outpatient. (2) Acute renal failure superimposed on stage 3 chronic kidney disease: Code(s): N17.9 - Acute kidney failure, unspecified; N18.30 - Chronic kidney disease, stage 3 unspecified Status: Acute Assessment and Plan: Nephrology consulted. (3) Essential (primary) hypertension: Code(s): I10 - Essential (primary) hypertension Status: Acute Assessment and Plan: Blood pressures are elevated. Holding home Lisinopril due to SIM. Continue beta mike. Will start Amlodipine. (4) Insulin dependent type 2 diabetes mellitus: Code(s): E11.9 - Type 2 diabetes mellitus without complications; Z79.4 - care home (current) use of insulin Status: Acute Assessment and Plan: Management as per Guest Relations Agent. (5) Peripheral arterial disease: Code(s): I73.9 - Peripheral vascular disease, unspecified Status: Acute Assessment and Plan: Continue DAPT, statin (6) Dyslipidemia: Code(s): E78.5 - Hyperlipidemia, unspecified Status: Acute Assessment and Plan: Continue high-intensity statin Plan Recommenations and plan discussed with Hospitalist. Subjective Date/time seen: 03/05/24 10:05 Interval history: Reason for visit: STEMI HPI: This is a 63-year-old man being seen in the emergency room where STEMI has been declared by the ED staff.? He is a patient with coronary artery disease and peripheral vascular disease details of which are unknown to me prior to this encounter.? He is a [facility] resident who apparently was experiencing some anterior throat pain/neck pain earlier today.? He says the pain but at this time has resolved his electrocardiogram however shows acute inferolateral ST-elevation [place].? For this reason STEMI has been activated.? He says he has had previous coronary interventions details are unknown to me.? He also has had previous attempts at lower extremity revascularization which have been unsuccessful as he has a right [id number] amputation.? He does have diabetes and dyslipidemia. Date of service 03/05: Having chest pain this morning. He does have very easily reproducible chest wall tenderness upon examination. Blood pressures are elevated. Review of Systems Review of Systems: All systems reviewed & are unremarkable except as noted in HPI and below (HPI) Exam Const: General: no acute distress HENMT: Mouth: Yes moist mucous membranes Eyes: General: appearance normal, both eyes and all related structures Sclera: sclerae normal Resp: Effort & Inspection: normal respiratory effort Cardio
[2024-03-05] MEDS: amLODIPine BESYLATE 5 MG TABLET PO (10:34)
[2024-03-05] MEDS: ISOSORBIDE MONONITRATE 30 MG TAB.ER.24H PO (10:34)
[2024-03-05] MEDS: MICONAZOLE NITRATE 2% CREAM 30 GM TUBE 1 APPLIC TOPICAL ×2 (10:34→20:53)
--- NOTE | 2024-03-05 11:07 | P.CONNP_ITS ---
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 * prerenal factors(?) * cannot r/o an element of CKD progression * contrast with cardiac cath may cause further fluctuations * however, creatinine better at this time * trial of IVF with noted plan to switch to bicarb fluids * hold off on further testing for now since creatinine improving * follow trend of repeat labs and UOP (2) Chronic kidney disease, stage 3: Code(s): N18.3 - Chronic kidney disease, stage 3 (moderate) Status: Chronic Assessment and Plan: * baseline creatinine seems to run ~ 1.4 - 1.7mg/dl * this would cause him to fluctuate between CKD stage 3A and stage 3B * likely secondary to hypertension, diabetes, severe vascular disease (CAD + PAD + hyperlipidemia), and age (3) Hyperkalemia: Code(s): E87.5 - Hyperkalemia Status: Acute Assessment and Plan: * presumably due to #1 * lokelma ordered * follow repeat K+ levels (4) ST elevation (STEMI) myocardial infarction: Code(s): I21.3 - ST elevation (STEMI) myocardial infarction of unspecified site Status: Acute Assessment and Plan: * admission EKG showed inferior lateral ST-elevation MS * s/p cardiac cath with PTCA/PCI with KENYA x 1 to mid RCA which was 90% blocked * no LV gram was performed due to renal dysfunction * Cardiology following * follow-up on Echo * remains on DAPT, statin, and metoprolol (5) Metabolic acidosis: Code(s): E87.20 - Acidosis, unspecified Status: Acute Assessment and Plan: * due to underlying CKD and normal saline IVFs * bicarb gtt to be initiated * if necessary or if persists, will add oral sodium bicarbonate * follow CO2 levels (6) Essential (primary) hypertension: Code(s): I10 - Essential (primary) hypertension Status: Chronic Assessment and Plan: * elevated but may be associated with back pain * follow trend of hemodynamics with current medications (7) Anemia: Code(s): D64.9 - Anemia, unspecified Status: Acute Assessment and Plan: * due in part to CKD and acute illness * follow trend of H/H * consider empiric Epogen while hospitalized (8) Insulin dependent type 2 diabetes mellitus: Code(s): E11.9 - Type 2 diabetes mellitus without complications; Z79.4 - jail (current) use of insulin Status: Acute Assessment and Plan: * follow accu-cheks * glycemic control per hospitalist/bait painter I will continue to follow the patient with you while he remains hospitalized to make further recommendations as deemed necessary. Thank you for allowing me to participate in the care of this patient. History of Present Illness Reason for Consult Consult date: 03/05/24 Reason for consult: acute renal failure (on chronic kidney disease) Chief Complaint Chief complaint: Inferolateral ST Elevation MS History of Present Illness Narrative: The patient is a 63-year-old male with a past medical history as outlined below who presented to [facility] Emergency room with complaints of chest pain. Next The patient resides in a nursing facility and apparently the nursing staff reported that he was having chest pain in association with neck and anterior throat pain. The symptoms were associated with shortness
--- NOTE | 2024-03-05 11:07 | PM.CNNEP ---
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(?) cannot r/o an element of CKD progression contrast with cardiac cath may cause further fluctuations however, creatinine better at this time trial of IVF with noted plan to switch to bicarb fluids hold off on further testing for now since creatinine improving follow trend of repeat labs and UOP (2) Chronic kidney disease, stage 3: Code(s): N18.3 - Chronic kidney disease, stage 3 (moderate) Status: Chronic Assessment and Plan: baseline creatinine seems to run ~ 1.4 - 1.7mg/dl this would cause him to fluctuate between CKD stage 3A and stage 3B likely secondary to hypertension, diabetes, severe vascular disease (CAD + PAD + hyperlipidemia), and age (3) Hyperkalemia: Code(s): E87.5 - Hyperkalemia Status: Acute Assessment and Plan: presumably due to #1 lokelma ordered follow repeat K+ levels (4) ST elevation (STEMI) myocardial infarction: Code(s): I21.3 - ST elevation (STEMI) myocardial infarction of unspecified site Status: Acute Assessment and Plan: admission EKG showed inferior lateral ST-elevation [place] s/p cardiac cath with PTCA/PCI with KENYA x 1 to mid RCA which was 90% blocked no LV gram was performed due to renal dysfunction Cardiology following follow-up on Echo remains on DAPT, statin, and metoprolol (5) Metabolic acidosis: Code(s): E87.20 - Acidosis, unspecified Status: Acute Assessment and Plan: due to underlying CKD and normal saline IVFs bicarb gtt to be initiated if necessary or if persists, will add oral sodium bicarbonate follow CO2 levels (6) Essential (primary) hypertension: Code(s): I10 - Essential (primary) hypertension Status: Chronic Assessment and Plan: elevated but may be associated with back pain follow trend of hemodynamics with current medications (7) Anemia: Code(s): D64.9 - Anemia, unspecified Status: Acute Assessment and Plan: due in part to CKD and acute illness follow trend of H/H consider empiric Epogen while hospitalized (8) Insulin dependent type 2 diabetes mellitus: Code(s): E11.9 - Type 2 diabetes mellitus without complications; 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 Thank you for allowing me to participate in the care of this patient. History of Present Illness Reason for Consult Consult date: 03/05/24 Reason for consult: acute renal failure (on chronic kidney disease) Chief Complaint Chief complaint: Inferolateral ST Elevation [place] History of Present Illness Narrative: The patient is a 63-year-old male with a past medical history as outlined below who presented to [facility] Emergency room with complaints of chest pain. Next The patient resides in a nursing facility and apparently the nursing staff reported that he was having chest pain in association with neck and anterior throat pain. The symptoms were associated with shortness of breath as well. Get over this is extensive history with regard to coronary artery disease and vascular disease, EMS was called and he was subsequently transported to the emergency room for further assessment. Workup and evaluation in the emergency room demonstrated the patient to be hemodynamically stable and his symptoms actually seem to have resolved by the time of his arrival to the emergency room. However, his EKG in the emergency should room showed
--- NOTE | 2024-03-05 11:16 | IVDEFINITY ---
Prior to administration of IV Definity the patient was educated on the risks and benefits of the imaging enhancing agent including potential adverse side effects. The patient verbalized understanding. Allergies were verified. No exclusion criteria were identified and at least one of the following inclusion criteria were met: 1) physician request, 2) patient technically difficult to image (per the [place] [employer] Echocardi[employer] guidelines of two or more segments not discernable within the apical view), or 3) questionable left ventricular function. ?
[2024-03-05] MEDS: INSULIN ASPART (*BKC) 100 UNITS/ML 7 UNITS SUB-Q ×2 (12:04→16:41)
[2024-03-05 12:11] LABS: Glucose Point of Care 329 mg/dl (65-105)
[2024-03-05 15:14] LABS: Anion Gap 8 mmol/L (4-12); Blood Urea Nitrogen 57 mg/dL (9-20); Calcium 8.6 mg/dL (8.4-10.2); Carbon Dioxide 18 mmol/L (22-30); Chloride 108 mmol/L (98-107); Estimated CRCL calculation 44 ml/min; Estimated Glomerular Filt Rate 34; Glucose 301 mg/dL (65-110); Potassium 4.7 mmol/L (3.4-5.0); Sodium 134 mmol/L (137-145)
[2024-03-05 18:22] LABS: Glucose Point of Care 311 mg/dl (65-105)
[2024-03-05 20:48] LABS: Glucose Point of Care 320 mg/dl (65-105)
[2024-03-05] MEDS: FLUTICASONE/SALMETEROL 115-21 MCG INHALER 1 PUFF 2 PUFF INHALATION (20:52)
[2024-03-06] VITALS (31 sets, daily range): BP systolic 100–150; BP diastolic 50–92; PULSE 60–162; RESP 16–24; TEMP 36.2–36.6; O2SAT 92–99
--- NOTE | 2024-03-06 00:25 | PC.NURSE ---
Loss of peripheral IV access at 0000 and bicarb drip placed on hold. Multiple RN's attempted IV access. Dr. Dubon notified of loss of access and okay with leaving drip on standby at this time.
--- NOTE | 2024-03-06 00:26 | PC.NURSE ---
This patient, Noel Rodriguez, was transferred to [facility] on 03/06/24 at 2350. Personal belongings sent with patient. Report given to José Miguel MOJICA. Appropriate documentation sent with patient.
[2024-03-06 05:19] LABS: Hematocrit 25.8 % (42.0-52.0); Mean Corpuscular Hemoglobin 28.9 pg (26-34); Mean Corpuscular Volume 93.1 fl (80-100); Mean Platelet Volume 10.7 fl (7.4-10.4); Platelet Count Result 269 k/mm3 (150-375); Red Blood Count 2.77 M/mm3 (4.6-6.20); Red Cell Distribution Width 15.9 % (11.5-14.5); White Blood Count 11.3 K/mm3 (4.5-10.0)
[2024-03-06 05:39] LABS: Alanine Aminotransferase 60 U/L (6-50); Albumin Level 3.3 g/dL (3.5-5.1); Alkaline Phosphatase 128 U/L (38-126); Anion Gap 7 mmol/L (4-12); Aspartate Amino Transferase 35 U/L (17-59); Bilirubin,Total 0.6 mg/dL (0.2-1.3); Blood Urea Nitrogen 49 mg/dL (9-20); Carbon Dioxide 22 mmol/L (22-30); Chloride 109 mmol/L (98-107); Estimated CRCL calculation 49 ml/min; Estimated Glomerular Filt Rate 38; Glucose 307 mg/dL (65-110); Magnesium 2.7 mg/dL (1.6-2.3); Phosphorus 3.9 mg/dL (2.5-4.5); Potassium 4.9 mmol/L (3.4-5.0); Sodium 138 mmol/L (137-145)
--- NOTE | 2024-03-06 06:34 | ECG_ITS ---
SEE SCANNED COPY FOR CONFIRMED REPORT MTDD
--- NOTE | 2024-03-06 06:50 | PC.NURSE ---
Patient heart rate in 170's at 0633 this AM. EKG obtained and Dr. Dubon notified of change in heart rate and orders received for Diltiazem drip to be initiated. PIV access obtained from YUNIOR Sewell with ultrasound. Bicarb drip remains on hold at this time. Will continue to monitor.
[2024-03-06] MEDS: dilTIAZem 100 MG/100 ML 100 MG/100 ML BAG IV CONT (06:57)
[2024-03-06] MEDS: FLUTICASONE/SALMETEROL 115-21 MCG INHALER 1 PUFF 2 PUFF INHALATION ×2 (07:10→21:20)
[2024-03-06] MEDS: ROSUVASTATIN 10 MG TABLET 20 MG PO (08:10)
[2024-03-06] MEDS: PREGABALIN (*CRX) 75 MG CAPSULE 150 MG PO ×3 (08:10→17:00)
[2024-03-06] MEDS: MICONAZOLE NITRATE 2% CREAM 30 GM TUBE 1 APPLIC TOPICAL ×2 (08:10→21:16)
[2024-03-06] MEDS: TAMSULOSIN HCL 0.4 MG CAPSULE PO (08:10)
[2024-03-06] MEDS: amLODIPine BESYLATE 5 MG TABLET PO (08:10)
[2024-03-06] MEDS: INSULIN ASPART (*BKC) 100 UNITS/ML 7 UNITS SUB-Q (08:10)
[2024-03-06] MEDS: MAGNESIUM OXIDE 400 MG TABLET PO (08:10)
[2024-03-06] MEDS: TICAGRELOR 90 MG TABLET PO ×2 (08:10→21:08)
[2024-03-06] MEDS: METOPROLOL TARTRATE 25 MG TABLET PO ×2 (08:10→21:09)
[2024-03-06] MEDS: ISOSORBIDE MONONITRATE 30 MG TAB.ER.24H PO (08:10)
[2024-03-06] MEDS: ASPIRIN 81 MG ENTERIC TABLET PO (08:10)
[2024-03-06] MEDS: INSULIN ASPART (*BKC) 100 UNITS/ML SUB-Q ×2 (08:10→17:01)
[2024-03-06] MEDS: buPROPion HCL SR (12HR) 100 MG TABCR PO (08:10)
[2024-03-06] MEDS: INSULIN GLARGINE (*BKC) 100 UNITS/ML 30 UNITS SUB-Q ×2 (08:10→21:08)
[2024-03-06 08:18] LABS: Glucose Point of Care 350 mg/dl (65-105)
--- NOTE | 2024-03-06 08:40 | PC.NURSE ---
Informed Bony Palm NP of pt's uncontrolled heart rate up into the 180's while on the Cardizem drip at 5mg/hr. New order to increase rate to 15mg/hr and await Cardiology's input. Pt also appears to be agitated. New order for 1mg Ativan IVP q4hr for anxiety or agitation. Also clarifiaction received from Dr. Licona regarding Bicarb drip. New order to to stop bicarb drip.
[2024-03-06] MEDS: LORazepam INJ (*CRX) 2 MG/ML VIAL 1 MG IV PUSH (09:05)
[2024-03-06] MEDS: AMIODARONE 150 MG/D5W 100 ML 150 MG/100 ML BAG 600 MG IV CONT (09:24)
[2024-03-06] MEDS: AMIODARONE 360 MG/D5W 200 ML 360 MG/200 ML BAG 33.33 MG IV CONT (09:27)
[2024-03-06] MEDS: APIXABAN 5 MG TABLET PO ×2 (09:31→21:08)
[2024-03-06] MEDS: SODIUM ZIRCONIUM CYCLOSILICATE 10 GM POWD.PACK PO ×2 (10:12→17:01)
--- NOTE | 2024-03-06 10:15 | PC.NURSE ---
Dr. Baker notified of pt's HR. Pt has converted back to NSR with a HR of 68. New order to hold on Amiodarone drip. MD will enter some new oral medication orders
--- NOTE | 2024-03-06 11:45 | PC.NURSE ---
Bony Palm, PURCHASING CONTRACTING CLERK notified of blood glucose level of 411. No new orders as PURCHASING CONTRACTING CLERK had just spoken with pharmacy and adjusted insulin dosing.
[2024-03-06 12:11] LABS: Glucose Point of Care 411 mg/dl (65-105)
[2024-03-06] MEDS: INSULIN ASPART (*BKC) 100 UNITS/ML 17 UNITS SUB-Q ×2 (12:42→17:01)
[2024-03-06] MEDS: AMIODARONE HCL 200 MG TABLET 400 MG PO ×2 (12:42→17:01)
--- NOTE | 2024-03-06 12:50 | PM.PNCARD ---
Progress Note: A&P Assessment and Plan (1) ST elevation (STEMI) myocardial infarction: Code(s): I21.3 - ST elevation (STEMI) myocardial infarction of unspecified site Status: Acute Assessment and Plan: Presented with inferolateral STEMI. Cardiac catheterization 03/04 showed: 1.?Right coronary dominant circulation with previous mid RCA and proximal LAD stents that remained patent 2. Mild non flow-limiting disease in the LAD ostial 3. High-grade stenosis in the circumflex of 90% which appears to be the culprit for the patient's presentation today.? This was treated with the two Orsiro? drug-eluting stents detailed above to treat the target lesion and also to treat a limited edge dissection at the distal margin of the original device after its deployment.? Angiographic result at the end of the procedure was excellent. Echocardiogram shows LVEF 65-70%. Patient to be on ASA 81mg once daily indefinitely, Was started on Brilinta, however, since we are starting Eliquis, will switch the Brilinta to Plavix. Will do triple therapy (ASA, Plavix, Eliquis) for 1 month, then followed by Plavix + Eliquis. Continue high-intensity statin, beta mike. Started on Imdur for antianginal relief. This is a patient of Dr. Guerra. Patient will need to follow up with him as an outpatient. (2) Atrial fibrillation with RVR: Code(s): I48.91 - Unspecified atrial fibrillation Status: Acute Assessment and Plan: Patient went into AFIB with RVR around 6:30AM 03/06. Started on Diltiazem drip without improvement. I stopped the Diltiazem drip and gave Amiodarone instead. Patient converted to sinus rhythm after the Amiodarone bolus. Will do Amiodarone 400mg BID. [id number] is 3 for hypertension, vascular disease, diabetes. Will start Eliquis 5mg BID. (3) Acute renal failure superimposed on stage 3 chronic kidney disease: Code(s): N17.9 - Acute kidney failure, unspecified; N18.30 - Chronic kidney disease, stage 3 unspecified Status: Acute Assessment and Plan: Nephrology consulted. SCr is improving. (4) Essential (primary) hypertension: Code(s): I10 - Essential (primary) hypertension Status: Acute Assessment and Plan: Blood pressures are elevated. Holding home Lisinopril due to SIM. Continue beta mike. Started Amlodipine. (5) Insulin dependent type 2 diabetes mellitus: Code(s): E11.9 - Type 2 diabetes mellitus without complications; Z79.4 - skilled nursing (current) use of insulin Status: Acute Assessment and Plan: Management as per Hospitalist. (6) Peripheral arterial disease: Code(s): I73.9 - Peripheral vascular disease, unspecified Status: Acute Assessment and Plan: Continue DAPT, statin (7) Dyslipidemia: Code(s): E78.5 - Hyperlipidemia, unspecified Status: Acute Assessment and Plan: Continue high-intensity statin Subjective Date/time seen: 03/06/24 12:50 Interval history: Reason for visit: STEMI HPI: This is a 63-year-old man being seen in the emergency room where STEMI has been declared by the ED staff.? He is a patient with coronary artery disease and peripheral vascular disease details of which are unknown to me prior to this encounter.? He is a long-term resident who apparently was experiencing some anterior throat pain/neck pain earlier today.? He says the pain but at this time has resolved his electrocardiogram however shows acute inferolateral ST-elevation [place].? For this reason STEMI has been activated.? He says he has had previous coronary interventions details are unknown to me.? He also has had previous attempts at lower extremity revascularization which have been unsuccessful as he has a right [id number] amputation.? He does have diabetes and dyslipidemia. Date of service 03/05: Having chest pain this morning. He does have very easily reproducible chest wall tenderness upon examination. Blood pressures are
--- NOTE | 2024-03-06 14:37 | PM.PNNEP ---
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[employer] prerenal factors(?) cannot r/o an element of CKD progression contrast with cardiac cath may cause further fluctuations s/p trial of IVFs (saline and bicarb gtt) hold off on further testing for now since creatinine improving follow trend of repeat labs and UOP (2) Chronic kidney disease, stage 3: Code(s): N18.3 - Chronic kidney disease, stage 3 (moderate) Status: Chronic Assessment and Plan: baseline creatinine seems to run ~ 1.4 - 1.7mg/dl this would cause him to fluctuate between CKD stage 3A and stage 3B likely secondary to hypertension, diabetes, severe vascular disease (CAD + PAD + hyperlipidemia), and age (3) Hyperkalemia: Code(s): E87.5 - Hyperkalemia Status: Acute Assessment and Plan: resolved presumably due to #1 s/p lokelma follow repeat K+ levels (4) ST elevation (STEMI) myocardial infarction: Code(s): I21.3 - ST elevation (STEMI) myocardial infarction of unspecified site Status: Acute Assessment and Plan: admission EKG showed inferior lateral ST-elevation [place] s/p cardiac cath with PTCA/PCI with KENYA x 1 to mid RCA which was 90% blocked no LV gram was performed due to renal dysfunction Cardiology following follow-up on Echo remains on DAPT, statin, and metoprolol (5) Atrial fibrillation: Code(s): I48.91 - Unspecified atrial fibrillation Status: Acute Assessment and Plan: as noted this AM responded to amiodarone started on anticoagulation Cardiology following (6) Metabolic acidosis: Code(s): E87.20 - Acidosis, unspecified Status: Acute Assessment and Plan: resolved due to underlying CKD and normal saline IVFs s/p bicarb gtt if necessary or if persists, will add oral sodium bicarbonate follow CO2 levels (7) Essential (primary) hypertension: Code(s): I10 - Essential (primary) hypertension Status: Chronic Assessment and Plan: reasonable control follow trend of hemodynamics (8) Anemia: Code(s): D64.9 - Anemia, unspecified Status: Acute Assessment and Plan: due in part to CKD and acute illness follow trend of H/H consider empiric Epogen while hospitalized (9) Insulin dependent type 2 diabetes mellitus: Code(s): E11.9 - Type 2 diabetes mellitus without complications; Z79.4 - terminal clerk (current) use of insulin Status: Acute Assessment and Plan: follow accu-cheks glycemic control per hospitalist Will continue to follow. Subjective Date/time seen: 03/06/24 14:37 Interval history: Follow-up for acute kidney injury/acute renal failure on chronic kidney disease. Transferred out of the ICU yesterday; no apparent distress noted; renal function/creatinine improved with stable electrolytes and improving acidosis (with use of bicarb gtt); AFib with RVR earlier this AM with improvemen with diltiazem gtt but converted with amiodarone; started on anticoagulation. Exam Narrative: General: elderly male in NAD but slightly confused Heart: normal S1 and S2; no rub Lungs: clear anteriorly, decreased at bases Abdomen: soft, nontender, nondistended, positive bowel sounds Extremities: no cyanosis or clubbing; no edema; s/p right BKA Skin: warm and dry Objective Data Vital Signs Vital Signs: Vital Signs Temp Pulse Resp BP Pulse Ox O2 Del Method 03/06/24 14:00 64 03/06/24 13:50 62 122/57 L 03/06/24 12:42 62 03/06/24 11:42 97.6 F 62 24 H 122/57 L 98 03/06/24 10:00 97.6 F 70 18 132/59 L 99 03/06/24 09:29 109 H 111/52 L 03/06/24 09:27 109 H 111/52 L
--- NOTE | 2024-03-06 14:37 | P.PNNP_ITS ---
Progress Note: A&P Assessment and Plan (1) SIM (acute kidney injury): Code(s): N17.9 - Acute kidney failure, unspecified Status: Acute Assessment and Plan: * slow improvement noted * admission creatinine 2.5mg/dl * suspect insult due to: * acute [place] * concurrent ETHAN-I [employer] * prerenal factors(?) * cannot r/o an element of CKD progression * contrast with cardiac cath may cause further fluctuations * s/p trial of IVFs (saline and bicarb gtt) * hold off on further testing for now since creatinine improving * follow trend of repeat labs and UOP (2) Chronic kidney disease, stage 3: Code(s): N18.3 - Chronic kidney disease, stage 3 (moderate) Status: Chronic Assessment and Plan: * baseline creatinine seems to run ~ 1.4 - 1.7mg/dl * this would cause him to fluctuate between CKD stage 3A and stage 3B * likely secondary to hypertension, diabetes, severe vascular disease (CAD + PAD + hyperlipidemia), and age (3) Hyperkalemia: Code(s): E87.5 - Hyperkalemia Status: Acute Assessment and Plan: * resolved * presumably due to #1 * s/p lokelma * follow repeat K+ levels (4) ST elevation (STEMI) myocardial infarction: Code(s): I21.3 - ST elevation (STEMI) myocardial infarction of unspecified site Status: Acute Assessment and Plan: * admission EKG showed inferior lateral ST-elevation [place] * s/p cardiac cath with PTCA/PCI with KENYA x 1 to mid RCA which was 90% blocked * no LV gram was performed due to renal dysfunction * Cardiology following * follow-up on Echo * remains on DAPT, statin, and metoprolol (5) Atrial fibrillation: Code(s): I48.91 - Unspecified atrial fibrillation Status: Acute Assessment and Plan: * as noted this AM * responded to amiodarone * started on anticoagulation * Cardiology following (6) Metabolic acidosis: Code(s): E87.20 - Acidosis, unspecified Status: Acute Assessment and Plan: * resolved * due to underlying CKD and normal saline IVFs * s/p bicarb gtt * if necessary or if persists, will add oral sodium bicarbonate * follow CO2 levels (7) Essential (primary) hypertension: Code(s): I10 - Essential (primary) hypertension Status: Chronic Assessment and Plan: * reasonable control * follow trend of hemodynamics (8) Anemia: Code(s): D64.9 - Anemia, unspecified Status: Acute Assessment and Plan: * due in part to CKD and acute illness * follow trend of H/H * consider empiric Epogen while hospitalized (9) Insulin dependent type 2 diabetes mellitus: Code(s): E11.9 - Type 2 diabetes mellitus without complications; Z79.4 - nursing home (current) use of insulin Status: Acute Assessment and Plan: * follow accu-cheks * glycemic control per hospitalist Will continue to follow. Subjective Date/time seen: 03/06/24 14:37 Interval history: Follow-up for acute kidney injury/acute renal failure on chronic kidney disease. Transferred out of the ICU yesterday; no apparent distress noted; renal function/creatinine improved with stable electrolytes and improving acidosis (with use of bicarb gtt); AFib with RVR earlier this AM with improvemen with diltiazem gtt but converted with amiodarone; started on anticoagulation. Exam Narrative: General: elderly male in NAD but slightly confused Heart: normal S1 and S2; no rub Lungs: clear anteriorly, decr
--- NOTE | 2024-03-06 15:44 | PM.IMCN ---
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 -no LV gram was performed due to acute on chronic kidney disease -cardiology following the patient, continue aspirin, Brilinta, rosuvastatin, metoprolol -pending echocardiogram -EKG reviewed this morning and shows diffuse ST changes which are unchanged previous EKG -current chest pain appears noncardiac in nature (2) Acute renal failure superimposed on stage 3 chronic kidney disease: Code(s): N17.9 - Acute kidney failure, unspecified; N18.30 - Chronic kidney disease, stage 3 unspecified Status: Acute Assessment and Plan: Acute on chronic renal disease -creatinine on admission is 2.50 (normal creatinine is between 1.30-1.70) -patient receiving post catheterization IV fluids and creatinine is improved to 0.0 -will continue IV fluids for another 24 hours decrease rate and change to bicarb -consult nephrology -p.o. Bicarb and Lokelma for metabolic acidosis and mild hyperkalemia -to monitor renal function, electrolytes and urine output 424: Bicarb drip completed as okayed by Nephrology (3) Insulin dependent type 2 diabetes mellitus: Code(s): E11.9 - Type 2 diabetes mellitus without complications; Z79.4 - [facility] (current) use of insulin Status: Acute Assessment and Plan: Accu-Cheks and sliding scale insulin Resume Lantus and with meal insulin 4/24: Home doses of insulin resumed plus high-dose sliding scale (4) Peripheral vascular disease: Code(s): I73.9 - Peripheral vascular disease, unspecified Status: Acute Assessment and Plan: Chronic -right BKA -dopplerable pedal pulses on the left (5) Anemia: Code(s): D64.9 - Anemia, unspecified Status: Acute Assessment and Plan: Chronic anemia, monitor hemoglobin Plan DVT prophylaxis: Resume apixaban Stress ulcer prophylaxis: Not indicated Nutrition: Change heart healthy diet to diabetic diet Code Status: Full code Remain in IMU for now HPI Date of Consult Consult date: 03/06/24 Requesting Physician: Horacio Cleaning MD Primary Care Provider: Chan Rizo, Consult Narrative Reason for consult: Diabetes, chronic kidney disease, medical management Narrative: Noel Rodriguez is a 63 year old male who was admitted for STEMI taken to the poultry hatchery laborer and had stent placement by Cardiology, transferred out of ICU yesterday. Patient anxious and agitated this morning with nursing staff thinking that he was in his friend's basement rather than in a hospital. He had AFib RVR around 630 this morning with a heart rate in the 150s to 170s. Cardiology was able to get this controlled with use of amiodarone. His renal function appears to be near baseline at this time. Nephrology has also been consulted. Patient was on bicarb drip overnight which has since been discontinued with the approval of Nephrology. Blood sugars have been highly elevated but his home insulin was not restarted adequately. This has since been changed. Patient received a single dose of Ativan earlier to help him be less anxious and agitated with nursing staff. No shortness of breath. Complains of pain all over. Review of Systems Review of Systems: All systems reviewed & are unremarkable except as noted in HPI and below PMFSH Past Medical History Medical History ADHD (attention deficit hyperactivity disorder) Cellulitis of both feet Chronic kidney disease, stage 3 Baseline creatinine between 1.5 and
[2024-03-06 16:53] LABS: Glucose Point of Care 204 mg/dl (65-105)
[2024-03-06 20:19] LABS: Glucose Point of Care 105 mg/dl (65-105)
[2024-03-07] VITALS (20 sets, daily range): BP systolic 77–138; BP diastolic 44–89; PULSE 65–98; RESP 17–28; TEMP 36.5–36.9; O2SAT 92–100
--- NOTE | 2024-03-07 | ECHOL_ITS ---
Patient Info Name: Noel Rodriguez Age: 63 years : 1960 Gender: Male Ht: 70 in Wt: 263 lbs BSA: 2.48 m2 HR: 98 bpm BP: 92 / 51 mmHg Heart Rhythm: Sinus Rhythm Technical Quality: Fair Exam Date: 03/07/2024 2:03 PM Exam Location: Echo Lab Patient Status: Inpatient Admit Date: 03/04/2024 Staff Ordering Physician: Nettie Paulino Shipping Track Supervisor: An Gamboa RDCS Attending Provider: Horacio Cleaning MD Referring Physician: Lora LUNDBERG; Exam Type: CA echo limited Study Info Indications R06.02 - Shortness of breath Limited two-dimensional transthoracic echocardiogram is performed. Summary 1. This was a limited study to assess for pericardial effusion. Technically difficult study due to body habitus, therefore, limited views were obtained. 2. There is a circumferential pericardial effusion, which is small anteriorly and moderate-large posteriorly (measures up to 2.1cm posteriorly). No clear evidence of tamponade. 3. Limited views of LV show normal systolic function. Left Ventricle Left ventricular systolic function is normal, estimated at Empty. Pericardium/Pleural There is a circumferential pericardial effusion, which is small anteriorly and moderate-large posteriorly (measures up to 2.1cm posteriorly). No clear evidence of tamponade. Report Signatures Amended by Belle Baker MD on 03/07/2024 14:43
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
[2024-03-07 04:36] LABS: Hematocrit 27.1 % (42.0-52.0); Hemoglobin 8.4 g/dL (14.0-18.0); Mean Corpuscular Hemoglobin 28.8 pg (26-34); Mean Corpuscular Volume 92.8 fl (80-100); Mean Platelet Volume 10.9 fl (7.4-10.4); Platelet Count Result 294 k/mm3 (150-375); Red Blood Count 2.92 M/mm3 (4.6-6.20); Red Cell Distribution Width 16.2 % (11.5-14.5); White Blood Count 14.8 K/mm3 (4.5-10.0)
[2024-03-07 04:53] LABS: Alanine Aminotransferase 80 U/L (6-50); Albumin Level 3.4 g/dL (3.5-5.1); Alkaline Phosphatase 127 U/L (38-126); Anion Gap 7 mmol/L (4-12); Aspartate Amino Transferase 60 U/L (17-59); Bilirubin,Total 0.4 mg/dL (0.2-1.3); Blood Urea Nitrogen 52 mg/dL (9-20); Calcium 8.8 mg/dL (8.4-10.2); Carbon Dioxide 22 mmol/L (22-30); Chloride 109 mmol/L (98-107); Estimated CRCL calculation 45 ml/min; Estimated Glomerular Filt Rate 34; Glucose 75 mg/dL (65-110); Magnesium 2.7 mg/dL (1.6-2.3); Phosphorus 4.4 mg/dL (2.5-4.5); Potassium 4.2 mmol/L (3.4-5.0); Sodium 138 mmol/L (137-145)
[2024-03-07] MEDS: FLUTICASONE/SALMETEROL 115-21 MCG INHALER 1 PUFF 2 PUFF INHALATION ×2 (08:53→20:34)
--- NOTE | 2024-03-07 09:10 | PM.PNCARD ---
Progress Note: A&P Assessment and Plan (1) ST elevation (STEMI) myocardial infarction: Code(s): I21.3 - ST elevation (STEMI) myocardial infarction of unspecified site Status: Acute Assessment and Plan: Presented with inferolateral STEMI. Cardiac catheterization 03/04 showed: 1.?Right coronary dominant circulation with previous mid RCA and proximal LAD stents that remained patent 2. Mild non flow-limiting disease in the LAD ostial 3. High-grade stenosis in the circumflex of 90% which appears to be the culprit for the patient's presentation today.? This was treated with the two Orsiro? drug-eluting stents detailed above to treat the target lesion and also to treat a limited edge dissection at the distal margin of the original device after its deployment.? Angiographic result at the end of the procedure was excellent. Echocardiogram shows LVEF 65-70%. Patient to be on ASA 81mg once daily indefinitely, Was started on Brilinta, however, since we are starting Eliquis, will switch the Brilinta to Plavix. Will do triple therapy (ASA, Plavix, Eliquis) for 1 month, then followed by Plavix + Eliquis. Continue high-intensity statin, beta mike. Started on Imdur for antianginal relief. This is a patient of Dr. Guerra. Patient will need to follow up with him as an outpatient. (2) Atrial fibrillation with RVR: Code(s): I48.91 - Unspecified atrial fibrillation Status: Acute Assessment and Plan: Patient went into AFIB with RVR yesterday morning. Converted to NSR on amiodarone. Amiodarone 400mg BID for now, will decrease to maintenance dose of 200mg daily at time of discharge. Do not anticipate nursing home therapy with amiodarone [id number] is 3 for hypertension, vascular disease, diabetes. Continue Eliquis 5mg BID. (3) Acute renal failure superimposed on stage 3 chronic kidney disease: Code(s): N17.9 - Acute kidney failure, unspecified; N18.30 - Chronic kidney disease, stage 3 unspecified Status: Acute Assessment and Plan: Nephrology consulted. SCr is improving. (4) Essential (primary) hypertension: Code(s): I10 - Essential (primary) hypertension Status: Acute Assessment and Plan: Blood pressures are elevated. Holding home Lisinopril due to SIM. Continue beta mike. Started Amlodipine. (5) Insulin dependent type 2 diabetes mellitus: Code(s): E11.9 - Type 2 diabetes mellitus without complications; Z79.4 - [facility] (current) use of insulin Status: Acute Assessment and Plan: Management as per Hospitalist. (6) Peripheral arterial disease: Code(s): I73.9 - Peripheral vascular disease, unspecified Status: Acute Assessment and Plan: Continue DAPT, statin (7) Dyslipidemia: Code(s): E78.5 - Hyperlipidemia, unspecified Status: Acute Assessment and Plan: Continue high-intensity statin Subjective Date/time seen: 03/07/24 09:10 Interval history: Reason for visit: STEMI HPI: This is a 63-year-old man being seen in the emergency room where STEMI has been declared by the ED staff.? He is a patient with coronary artery disease and peripheral vascular disease details of which are unknown to me prior to this encounter.? He is a [facility] resident who apparently was experiencing some anterior throat pain/neck pain earlier today.? He says the pain but at this time has resolved his electrocardiogram however shows acute inferolateral ST-elevation [place].? For this reason STEMI has been activated.? He says he has had previous coronary interventions details are unknown to me.? He also has had previous attempts at lower extremity revascularization which have been unsuccessful as he has a right [id number] amputation.? He does have diabetes and dyslipidemia. Date of service 03/05: Having chest pain this morning. He does have very easily reproducible chest wall tenderness upon examination. Blood pressures are elevated. Da
[2024-03-07] MEDS: INSULIN GLARGINE (*BKC) 100 UNITS/ML 30 UNITS SUB-Q ×2 (09:16→20:31)
[2024-03-07] MEDS: INSULIN ASPART (*BKC) 100 UNITS/ML 17 UNITS SUB-Q ×2 (09:17→15:05)
[2024-03-07] MEDS: ROSUVASTATIN 10 MG TABLET 20 MG PO (09:22)
[2024-03-07] MEDS: AMIODARONE HCL 200 MG TABLET 400 MG PO ×2 (09:22→17:53)
[2024-03-07] MEDS: ASPIRIN 81 MG ENTERIC TABLET PO (09:23)
[2024-03-07] MEDS: METOPROLOL TARTRATE 25 MG TABLET PO (09:23)
[2024-03-07] MEDS: MAGNESIUM OXIDE 400 MG TABLET PO (09:23)
[2024-03-07] MEDS: ISOSORBIDE MONONITRATE 30 MG TAB.ER.24H PO (09:23)
[2024-03-07] MEDS: amLODIPine BESYLATE 5 MG TABLET PO (09:23)
[2024-03-07] MEDS: TAMSULOSIN HCL 0.4 MG CAPSULE PO (09:24)
[2024-03-07] MEDS: PREGABALIN (*CRX) 75 MG CAPSULE 150 MG PO ×3 (09:24→17:53)
[2024-03-07] MEDS: buPROPion HCL SR (12HR) 100 MG TABCR PO (09:24)
[2024-03-07] MEDS: APIXABAN 5 MG TABLET PO (09:24)
[2024-03-07 09:29] LABS: Glucose Point of Care 105 mg/dl (65-105)
[2024-03-07] MEDS: HYDROcodone/acetaminophen (*CRX) 5-325 MG TABLET 1 TAB PO ×3 (09:37→22:24)
[2024-03-07] MEDS: SODIUM ZIRCONIUM CYCLOSILICATE 10 GM POWD.PACK PO ×2 (10:00→17:57)
--- NOTE | 2024-03-07 10:35 | PM.IMPN ---
Progress Note: A&P Assessment and Plan (1) ST elevation (STEMI) myocardial infarction: Code(s): I21.3 - ST elevation (STEMI) myocardial infarction of unspecified site Status: Acute Assessment and Plan: Patient presented with chest pain, neck pain, shortness of breath to the ED, EKG showed inferior lateral ST-elevation [place], patient was taken to the cardiac lab technician status post PTCA/PCI with KENYA x1 to mid RCA which was 90% blocked and was the culprit vessel. -no LV gram was performed due to acute on chronic kidney disease -cardiology following the patient, continue aspirin, Brilinta, rosuvastatin, metoprolol -pending echocardiogram -EKG reviewed this morning and shows diffuse ST changes which are unchanged previous EKG -current chest pain appears noncardiac in nature (2) Acute renal failure superimposed on stage 3 chronic kidney disease: Code(s): N17.9 - Acute kidney failure, unspecified; N18.30 - Chronic kidney disease, stage 3 unspecified Status: Acute Assessment and Plan: Acute on chronic renal disease -creatinine on admission is 2.50 (normal creatinine is between 1.30-1.70) -patient receiving post catheterization IV fluids and creatinine is improved to 0.0 -will continue IV fluids for another 24 hours decrease rate and change to bicarb -consult nephrology -p.o. Bicarb and Lokelma for metabolic acidosis and mild hyperkalemia -to monitor renal function, electrolytes and urine output 03/06: Bicarb drip completed as okayed by Nephrology 03/07: Renal function still not improving. (3) Insulin dependent type 2 diabetes mellitus: Code(s): E11.9 - Type 2 diabetes mellitus without complications; Z79.4 - speech scientist (current) use of insulin Status: Acute Assessment and Plan: Accu-Cheks and sliding scale insulin Resume Lantus and with meal insulin 03/06: Home doses of insulin resumed plus high-dose sliding scale (4) Peripheral vascular disease: Code(s): I73.9 - Peripheral vascular disease, unspecified Status: Acute Assessment and Plan: Chronic -right BKA -dopplerable pedal pulses on the left (5) Anemia: Code(s): D64.9 - Anemia, unspecified Status: Acute Assessment and Plan: Chronic anemia, monitor hemoglobin Plan DVT prophylaxis: Per Cardiology Stress ulcer prophylaxis: Not indicated Nutrition: Change heart healthy diet to diabetic diet Code Status: Full code Remain in IMU for now Time Spent With Patient Time with patient: 25 - 35 minutes Subjective Date/time seen: 03/07/24 10:35 Interval history: This morning patient was complaining only of back pain and generally not feeling well. Otherwise patient not significantly changed. Minimal crackles noted on auscultation of lung sounds. Patient reported he did not feel like eating breakfast today. Review of Systems Review of Systems: All systems reviewed & are unremarkable except as noted in HPI and below Exam Narrative: General: Slightly confused/anxious/agitated this morning HEENT:? Pupils equal and reactive, sclerae is clear, moist oral mucosa Neck:? Supple. No JVD Respiratory:? Slight crackles to the bases bilaterally Cardiac:? S1-S2 was normal, regular rate and rhythm Abdomen:? Soft, nontender, nondistended, obese Extremities:? Right BKA, dopplerable pedal pulses on the left, no edema Neuro:? Patient is awake, alert, oriented, nonfocal Skin:? Chronic venous stasis changes Psych:? Slightly confused anxious agitated this morning Objective Data Vital Signs Vital Signs: Vital Signs - 24 hr 03/06/24 11:42 03/06/24 12:42 03/06/24 13:50 Temperature 36.4 C Pulse Rate 62 62 62 Respiratory Rate 24 H Blood Pressure 122/57 L 122/57 L Pulse Oximetry 98 Oxygen Delivery Fraction of Inspired Oxygen 03/06/24 12:00 03/06/24 12:00 03/06/24 14:00 Temperature Pulse Rate 60 64 Respiratory Rate Blood Pressure Pulse Oximetry Oxygen Delivery Nathaly
[2024-03-07] MEDS: HYDROmorphone HCL INJ (*CRX) 1 MG/ML SYR 0.5 MG IV PUSH (12:10)
[2024-03-07] MEDS: INSULIN ASPART (*BKC) 100 UNITS/ML SUB-Q ×2 (12:41→20:31)
[2024-03-07] MEDS: MICONAZOLE NITRATE 2% CREAM 30 GM TUBE 1 APPLIC TOPICAL ×2 (12:42→20:32)
--- NOTE | 2024-03-07 12:54 | P.PNNP_ITS ---
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 * prerenal factors(?) * contrast with cardiac cath may cause further fluctuations (but creatinine was already elevated on admission) * cannot r/o an element of CKD progression * s/p trial of IVFs (saline and bicarb gtt) * hold off on further testing for now since creatinine improving/stable * follow trend of repeat labs and UOP (2) Chronic kidney disease, stage 3: Code(s): N18.3 - Chronic kidney disease, stage 3 (moderate) Status: Chronic Assessment and Plan: * baseline creatinine seems to run ~ 1.4 - 1.7mg/dl * this would cause him to fluctuate between CKD stage 3A and stage 3B * likely secondary to hypertension, diabetes, severe vascular disease (CAD + PAD + hyperlipidemia), and age (3) Hyperkalemia: Code(s): E87.5 - Hyperkalemia Status: Acute Assessment and Plan: * resolved * presumably due to #1 * s/p lokelma * follow repeat K+ levels (4) ST elevation (STEMI) myocardial infarction: Code(s): I21.3 - ST elevation (STEMI) myocardial infarction of unspecified site Status: Acute Assessment and Plan: * admission EKG showed inferior lateral ST-elevation [place] * s/p cardiac cath with PTCA/PCI with KENYA x 1 to mid RCA which was 90% blocked * no LV gram was performed due to renal dysfunction * Cardiology following * Echo results noted * remains on DAPT, statin, and metoprolol (5) Atrial fibrillation: Code(s): I48.91 - Unspecified atrial fibrillation Status: Acute Assessment and Plan: * as noted this AM * responded to amiodarone * on anticoagulation * Cardiology following (6) Metabolic acidosis: Code(s): E87.20 - Acidosis, unspecified Status: Acute Assessment and Plan: * resolved * due to underlying CKD and normal saline IVFs * s/p bicarb gtt * if necessary or if persists, will add oral sodium bicarbonate * follow CO2 levels (7) Essential (primary) hypertension: Code(s): I10 - Essential (primary) hypertension Status: Chronic Assessment and Plan: * reasonable control * follow trend of hemodynamics (8) Anemia: Code(s): D64.9 - Anemia, unspecified Status: Acute Assessment and Plan: * due in part to CKD and acute illness * follow trend of H/H * consider empiric Epogen while hospitalized (9) Insulin dependent type 2 diabetes mellitus: Code(s): E11.9 - Type 2 diabetes mellitus without complications; Z79.4 - [facility] (current) use of insulin Status: Acute Assessment and Plan: * follow accu-cheks * glycemic control per hospitalist Will continue to follow. Subjective Date/time seen: 03/07/24 12:54 Interval history: Follow-up for acute kidney injury/acute renal failure on chronic kidney disease. Slight rise in creatinine noted by AM labs; reports not feeling very well but difficult for him to elaborate what he means; diminished appetite noted as did not feel like eating his breakfast or lunch today; only other complaint I was able to elicit was that of back pain. Exam Narrative: General: elderly male in NAD but slightly confused Heart: normal S1 and S2; no ru
--- NOTE | 2024-03-07 12:54 | PM.PNNEP ---
Progress Note: A&P Assessment and Plan (1) SIM (acute kidney injury): Code(s): N17.9 - Acute kidney failure, unspecified Status: Acute Assessment and Plan: slight rise by AM labs admission creatinine 2.5mg/dl suspect insult due to: acute SD concurrent ETHAN-I SECY prerenal factors(?) contrast with cardiac cath may cause further fluctuations (but creatinine was already elevated on admission) cannot r/o an element of CKD progression s/p trial of IVFs (saline and bicarb gtt) hold off on further testing for now since creatinine improving/stable follow trend of repeat labs and UOP (2) Chronic kidney disease, stage 3: Code(s): N18.3 - Chronic kidney disease, stage 3 (moderate) Status: Chronic Assessment and Plan: baseline creatinine seems to run ~ 1.4 - 1.7mg/dl this would cause him to fluctuate between CKD stage 3A and stage 3B likely secondary to hypertension, diabetes, severe vascular disease (CAD + PAD + hyperlipidemia), and age (3) Hyperkalemia: Code(s): E87.5 - Hyperkalemia Status: Acute Assessment and Plan: resolved presumably due to #1 s/p lokelma follow repeat K+ levels (4) ST elevation (STEMI) myocardial infarction: Code(s): I21.3 - ST elevation (STEMI) myocardial infarction of unspecified site Status: Acute Assessment and Plan: admission EKG showed inferior lateral ST-elevation SD s/p cardiac cath with PTCA/PCI with KENYA x 1 to mid RCA which was 90% blocked no LV gram was performed due to renal dysfunction Cardiology following Echo results noted remains on DAPT, statin, and metoprolol (5) Atrial fibrillation: Code(s): I48.91 - Unspecified atrial fibrillation Status: Acute Assessment and Plan: as noted this AM responded to amiodarone on anticoagulation Cardiology following (6) Metabolic acidosis: Code(s): E87.20 - Acidosis, unspecified Status: Acute Assessment and Plan: resolved due to underlying CKD and normal saline IVFs s/p bicarb gtt if necessary or if persists, will add oral sodium bicarbonate follow CO2 levels (7) Essential (primary) hypertension: Code(s): I10 - Essential (primary) hypertension Status: Chronic Assessment and Plan: reasonable control follow trend of hemodynamics (8) Anemia: Code(s): D64.9 - Anemia, unspecified Status: Acute Assessment and Plan: due in part to CKD and acute illness follow trend of H/H consider empiric Epogen while hospitalized (9) Insulin dependent type 2 diabetes mellitus: Code(s): E11.9 - Type 2 diabetes mellitus without complications; Z79.4 - supervisor intermediates (current) use of insulin Status: Acute Assessment and Plan: follow accu-cheks glycemic control per hospitalist Will continue to follow. Subjective Date/time seen: 03/07/24 12:54 Interval history: Follow-up for acute kidney injury/acute renal failure on chronic kidney disease. Slight rise in creatinine noted by AM labs; reports not feeling very well but difficult for him to elaborate what he means; diminished appetite noted as did not feel like eating his breakfast or lunch today; only other complaint I was able to elicit was that of back pain. Exam Narrative: General: elderly male in NAD but slightly confused Heart: normal S1 and S2; no rub Lungs: clear anteriorly, decreased at bases Abdomen: soft, nontender, nondistended, positive bowel sounds Extremities: no cyanosis or clubbing; no edema; s/p right BKA Skin: warm and dry Objective Data Vital Signs Vital Signs: Vital Signs Temp Pulse Resp BP Pulse Ox O2 Del Method O2 Flow Rate 03/07/24 12:00 74 03/07/24 11:39 98.1 F 74 28 H 92/51 L 100 03/07/24 09:23 95 03/07/24 09:22 93 03/07/24 08:53 97 Room Air 03/07/24 07:27 98.1 F 85 18 136/52 L 99
[2024-03-07 13:35] LABS: Glucose Point of Care 247 mg/dl (65-105)
[2024-03-07] MEDS: LACTATED RINGERS 1,000 ML 999 ML IV CONT ×2 (13:55→15:27)
[2024-03-07] MEDS: SODIUM CHLORIDE 0.9% IV 1,000 ML 999 ML IV CONT (14:00)
[2024-03-07 14:04] LABS: Glucose Point of Care 204 mg/dl (65-105)
--- NOTE | 2024-03-07 14:17 | WPDINTPN ---
Progress Note: A&P Assessment and Plan (1) Hypotension: Code(s): I95.9 - Hypotension, unspecified Status: Acute Assessment and Plan: Patient of hypotension today this could be secondary to internal bleeding as patient is anticoagulation or secondary to multiple medications as patient is on metoprolol amlodipine Imdur and also received Dilaudid Bedside limited echocardiogram was done by Dr. Baker with Cardiology and the effusion does not appear to be significant with no tamponade physiology Patient is going down for a CTA of abdomen pelvis to rule out any retroperitoneal hemorrhage Will also obtain CBC lactic acid and electrolytes stat Patient will be given IV fluid bolus and re-evaluated. (2) ST elevation (STEMI) myocardial infarction: Code(s): I21.3 - ST elevation (STEMI) myocardial infarction of unspecified site Status: Acute Assessment and Plan: Inferior lateral ST-elevation IN status post PTCA/PCI with KENYA x1 to mid RCA which was 90% blocked and was the culprit vessel. -no LV gram was performed due to acute on chronic kidney disease -patient was started on aspirin, Brilinta, rosuvastatin, metoprolol, Imdur, Echocardiogram Summary ? 1. Technically difficult study with limited views. ? 2. Left ventricular chamber dimension is normal. ? 3. Left ventricular systolic function is normal, estimated at 65-70%. ? 4. There is mildly increased left ventricular wall thickness. ? 5. The left ventricular diastolic function is grade I diastolic dysfunction. ? 6. Right ventricular systolic function is normal. ? 7. There is small circumferential pericardial effusion. ? 8. There is no significant valvular disease appreciated on this study. (3) Acute renal failure superimposed on stage 3 chronic kidney disease: Code(s): N17.9 - Acute kidney failure, unspecified; N18.30 - Chronic kidney disease, stage 3 unspecified Status: Acute Assessment and Plan: Acute on chronic renal disease -creatinine on admission is 2.50 (normal creatinine is between 1.30-1.70) -patient receiving post catheterization IV fluids and creatinine is improved to 2.0 and has remained leveled -he was treated with IV fluids post cardiac catheterization -nephrology following -to monitor renal function, electrolytes and urine output (4) Insulin dependent type 2 diabetes mellitus: Code(s): E11.9 - Type 2 diabetes mellitus without complications; Z79.4 - care home (current) use of insulin Status: Acute Assessment and Plan: Accu-Cheks and sliding scale insulin Continue Lantus and with meal insulin (5) Peripheral vascular disease: Code(s): I73.9 - Peripheral vascular disease, unspecified Status: Acute Assessment and Plan: Chronic -right BKA -dopplerable pedal pulses on the left (6) Anemia: Code(s): D64.9 - Anemia, unspecified Status: Acute Assessment and Plan: Chronic anemia, repeat CBC pending (7) Chest pain: Code(s): R07.9 - Chest pain, unspecified Status: Acute Assessment and Plan: Post cardiac catheterization EKG reviewed diffuse ST changes which are unchanged previous EKG His chest pain appears pleuritic or pericardial in nature and does not appear cardiac from history Pain control Not on nsaid due to SIM (8) Atrial fibrillation: Code(s): I48.91 - Unspecified atrial fibrillation Status: Acute Assessment and Plan: Currently rate controlled Hold beta-mike at this time due to hypotension Hold Eliquis due to potential of bleeding Plan DVT prophylaxis: On Eliquis Stress ulcer prophylaxis: NA Nutrition: Consistent carbohydrate diet Code Status: Full code Total Critical Care Time - minutes Due to a high probability of clinically significant, life threatening deterioration, the patient required my highest level of preparedness to intervene emergently and I personally spent this critical care time directly and personally franca
--- NOTE | 2024-03-07 14:23 | PCRCNOTE ---
RT attempted to stick 2 times. Patient brought to CT. RN aware.
[2024-03-07 14:25] LABS: Basophils Percent Auto 0.2 % (0.2-1.2); Hematocrit 24.4 % (42.0-52.0); Hemoglobin 7.5 g/dL (14.0-18.0); Immature Granulocyte Absolute 0.22 K/mm3 (0.00-0.031); Immature Granulocyte Percent A 1.2 % (0-0.5); Lymphocytes Absolute Auto 1.27 K/mm3 (0.9-3.2); Lymphocytes Percent Auto 6.9 % (18.3-44.2); Mean Corpuscular HGB Conc 30.7 g/dl (32-36); Mean Corpuscular Hemoglobin 29.1 pg (26-34); Mean Corpuscular Volume 94.6 fl (80-100); Mean Platelet Volume 11.5 fl (7.4-10.4); Monocytes Absolute Auto 0.9 K/mm3 (0.1-0.6); Monocytes Percent Auto 4.9 % (2.6-8.5); Neutrophils Absolute Auto 15.9 K/mm3 (1.3-6.7); Neutrophils Percent Auto 86.8 % (45.5-73.1); Platelet Count Result 262 k/mm3 (150-375); Red Blood Count 2.58 M/mm3 (4.6-6.20); Red Cell Distribution Width 16.5 % (11.5-14.5); White Blood Count 18.3 K/mm3 (4.5-10.0)
--- NOTE | 2024-03-07 14:25 | PC.NURSE ---
Pt's RN at bedside. Nettie Paulino NP at bedside. Pt more lethargic and pallor then earlier today. Dr. Baker notified of pt's changed in condition arrived to bedside. Nettie Paulino NP notified Dr. Patiño of pt's decreased in BP. Dr. Patiño to bedside. Orders received and placed by this RN. Pt to CT and then transferred to ICU.
--- NOTE | 2024-03-07 14:36 | PM.PNCARD ---
Progress Note: A&P Assessment and Plan (1) ST elevation (STEMI) myocardial infarction: Code(s): I21.3 - ST elevation (STEMI) myocardial infarction of unspecified site Status: Acute Assessment and Plan: Presented with inferolateral STEMI. Cardiac catheterization 03/04 showed: 1.?Right coronary dominant circulation with previous mid RCA and proximal LAD stents that remained patent 2. Mild non flow-limiting disease in the LAD ostial 3. High-grade stenosis in the circumflex of 90% which appears to be the culprit for the patient's presentation today.? This was treated with the two Orsiro? drug-eluting stents detailed above to treat the target lesion and also to treat a limited edge dissection at the distal margin of the original device after its deployment.? Angiographic result at the end of the procedure was excellent. Echocardiogram shows LVEF 65-70%. Patient to be on ASA 81mg once daily indefinitely, He had been shifted from Brilinta to Plavix because of addition of Apixaban, but because of concern for possible bleeding, will discontinue apixaban Continue high-intensity statin, beta mike. Started on Imdur for antianginal relief. This is a patient of Dr. Guerra. Patient will need to follow up with him as an outpatient. (2) Atrial fibrillation with RVR: Code(s): I48.91 - Unspecified atrial fibrillation Status: Acute Assessment and Plan: Patient went into AFIB with RVR yesterday morning. Converted to NSR on amiodarone. Amiodarone 400mg BID for now, will decrease to maintenance dose of 200mg daily at time of discharge. Do not anticipate keno terminal operator therapy with amiodarone As above. Discontinue apixaban (3) Acute renal failure superimposed on stage 3 chronic kidney disease: Code(s): N17.9 - Acute kidney failure, unspecified; N18.30 - Chronic kidney disease, stage 3 unspecified Status: Acute Assessment and Plan: Nephrology consulted. (4) Essential (primary) hypertension: Code(s): I10 - Essential (primary) hypertension Status: Acute Assessment and Plan: Became hypotensive this afternoon. Hold all antihypertensives for now (5) Insulin dependent type 2 diabetes mellitus: Code(s): E11.9 - Type 2 diabetes mellitus without complications; Z79.4 - long term care pharmacist (current) use of insulin Status: Acute Assessment and Plan: Management as per Hospitalist. (6) Peripheral arterial disease: Code(s): I73.9 - Peripheral vascular disease, unspecified Status: Acute Assessment and Plan: Continue DAPT, statin (7) Dyslipidemia: Code(s): E78.5 - Hyperlipidemia, unspecified Status: Acute Assessment and Plan: Continue high-intensity statin (8) Hypotension: Code(s): I95.9 - Hypotension, unspecified Status: Acute Assessment and Plan: He became hypotensive this afternoon. Concern for bleeding (RP, pericardial) with addition of apixaban yesterday, though his Hgb is stable. Repeat CBC is pending. Checked bedside echo, effusion appearing larger than previously but no tamponade physiology Checking C/A/P CT to rule out RP bleed Fluid bolus Check ABG Transfer to ICU Subjective Date/time seen: 03/07/24 14:36 Interval history: HPI: This is a 63-year-old man being seen in the emergency room where STEMI has been declared by the ED staff. He is a patient with coronary artery disease and peripheral vascular disease details of which are unknown to me prior to this encounter. He is a [facility] resident who apparently was experiencing some anterior throat pain/neck pain earlier today. He says the pain but at this time has resolved his electrocardiogram however shows acute inferolateral ST-elevation CO. For this reason STEMI has been activated. He says he has had previous coronary interventions details are unknown to me. He also has had previous attempts at lower extremity revascularization which have
[2024-03-07 14:39] LABS: Anion Gap 6 mmol/L (4-12); Blood Urea Nitrogen 50 mg/dL (9-20); Calcium 7.3 mg/dL (8.4-10.2); Carbon Dioxide 17 mmol/L (22-30); Chloride 113 mmol/L (98-107); Estimated CRCL calculation 45 ml/min; Estimated Glomerular Filt Rate 34; Glucose 161 mg/dL (65-110); Magnesium 2.3 mg/dL (1.6-2.3); Potassium 4.7 mmol/L (3.4-5.0); Sodium 136 mmol/L (137-145)
[2024-03-07 14:40] LABS: Lactic Acid Reflex 2.8 mmol/L (0.7-2.0)
--- NOTE | 2024-03-07 14:40 | PC.NURSE ---
This patient, Noel Rodriguez, was received from [[id number]] on 03/07/24 at 1440. Patient/family oriented to unit policies and routines. Report received from Gisell MOJICA.
[2024-03-07 14:50] LABS: Alveolar/Arterial O2 Gradient 88.1 mmHg; Base Excess ABG -3.4 mEq/l (+/-2.0); Fractional Inspired Oxygen 28 %; Oxygen Content ABG 10.5 %vol (16.0-22.0); Oxygen Saturation ABG 96.2 % (95.0-100.0); Oxyhemoglobin 93.3 % THb (90.0-100.0); PCO2 ABG 29.1 mmHg (35.0-45.0); PO2 ABG 77.2 mmHg (80.0-100.0); PO2 FiO2 Ratio Arterial Blood 2.76 %; Total Hemoglobin 7.9 g/dL (12.0-18.0); pH ABG 7.454 (7.350-7.450)
[2024-03-07 14:51] LABS: Device NASAL CANNULA; Modified Allen's Test Pass; Site Drawn RIGHT RADIAL
--- NOTE | 2024-03-07 15:17 | PC.NURSE ---
Pt seen by Darby Paulino NP. Pt with pallor, drowsiness, shortness of breath. BP 77/44. O2 82 on room air. Pt was placed on 2L oxygen. Leaded Glass Installer, Dr. Patiño called to bedside. Bolus started. Pt sent to CT then transferred.
[2024-03-07 17:06] LABS: Glucose Point of Care 181 mg/dl (65-105)
[2024-03-07 17:07] LABS: Appearance Urine Turbid (Clear); Bilirubin Urine 1+ (Negative); Blood Urine 2+ (Negative); Color Urine Dark Yellow (Yellow); Glucose Urine UA Negative (Negative); Ketones Urine Trace mg/dL (Negative); Leukocyte Esterase Ur 2+ LEU/UL (Negative); Nitrate Urine Negative (Negative); Protein Urine 1+ mg/dL (Negative)
[2024-03-07 17:11] LABS: Bacteria Urine Rare /hpf; Need Manual Microscopic Reviewed; Non Pathogenic Casts >20; Squamous Epithelial Cell Urine Few /hpf (Few); WBC Urine >100 /hpf (0-3)
[2024-03-07 17:18] LABS: Specific Grav Ur 1.058 (1.001-1.035)
[2024-03-07 17:21] LABS: Add Urine Microscopic? YES
[2024-03-07 17:22] LABS: Reflex Lactic Acid Yes or No Add Lactic
[2024-03-07 17:40] LABS: Lactic Acid Reflex 3.1 mmol/L (0.7-2.0)
[2024-03-07] MEDS: CLOPIDOGREL BISULFATE 300 MG TABLET 600 MG PO (17:57)
[2024-03-07] MEDS: AZTREONAM 1 GM in SODIUM CHLORIDE 0.9% IV 50 ML 100 ML IVPB (18:52)
[2024-03-07 19:33] LABS: Procalcitonin 0.8 ng/mL
[2024-03-07] MEDS: MORPHINE SULFATE (*CRX) 2 MG/ML INJ IV PUSH (20:30)
[2024-03-07] MEDS: MELATONIN 5 MG TABLET 10 MG PO (20:32)
[2024-03-07] MEDS: ALBUTEROL SULFATE (*SP) AEROSOL 1 PUFF 2 PUFF INHALATION (20:36)
[2024-03-07 21:04] LABS: Glucose Point of Care 274 mg/dl (65-105)
[2024-03-07] MEDS: CYCLOBENZAPRINE HCL 10 MG TABLET PO (22:24)
[2024-03-08] VITALS (52 sets, daily range): BP systolic 72–180; BP diastolic 29–169; PULSE 11–148; RESP 14–31; TEMP 36.4–37.3; O2SAT 92–100
--- NOTE | 2024-03-08 00:49 | ECG_ITS ---
SEE SCANNED COPY FOR CONFIRMED REPORT MTDD
[2024-03-08] MEDS: MIDODRINE HCL 2.5 MG TABLET 15 MG PO (01:24)
[2024-03-08] MEDS: AZTREONAM 1 GM in SODIUM CHLORIDE 0.9% IV 50 ML 100 ML IVPB ×3 (02:15→21:30)
[2024-03-08 02:22] LABS: Hematocrit 23.6 % (42.0-52.0); Hemoglobin 7.3 g/dL (14.0-18.0); Mean Corpuscular HGB Conc 30.9 g/dl (32-36); Mean Corpuscular Hemoglobin 29.1 pg (26-34); Mean Platelet Volume 11.8 fl (7.4-10.4); Platelet Count Result 261 k/mm3 (150-375); Red Blood Count 2.51 M/mm3 (4.6-6.20); Red Cell Distribution Width 16.8 % (11.5-14.5); White Blood Count 21.8 K/mm3 (4.5-10.0)
[2024-03-08] MEDS: HYDROcodone/acetaminophen (*CRX) 5-325 MG TABLET 1 TAB PO (02:28)
[2024-03-08 02:32] LABS: Anion Gap 12 mmol/L (4-12); Blood Urea Nitrogen 62 mg/dL (9-20); Calcium 8.6 mg/dL (8.4-10.2); Carbon Dioxide 15 mmol/L (22-30); Chloride 105 mmol/L (98-107); Estimated CRCL calculation 36 ml/min; Estimated Glomerular Filt Rate 26; Glucose 289 mg/dL (65-110); Magnesium 2.7 mg/dL (1.6-2.3); Phosphorus 7.4 mg/dL (2.5-4.5); Potassium 5.5 mmol/L (3.4-5.0); Sodium 132 mmol/L (137-145)
[2024-03-08] MEDS: FUROSEMIDE INJ 40 MG/4 ML VIAL 20 MG IV PUSH (02:34)
[2024-03-08] MEDS: AMIODARONE 150 MG/D5W 100 ML 150 MG/100 ML BAG 600 MG IV CONT (03:35)
[2024-03-08] MEDS: AMIODARONE 360 MG/D5W 200 ML 360 MG/200 ML BAG 33.33 MG IV CONT (04:20)
[2024-03-08] MEDS: LORazepam INJ (*CRX) 2 MG/ML VIAL 1 MG IV PUSH (04:57)
[2024-03-08] MEDS: MORPHINE SULFATE (*CRX) 2 MG/ML INJ 1 MG IV PUSH (04:58)
[2024-03-08] MEDS: SODIUM CHLORIDE 0.9% IV 1,000 ML 999 ML IV CONT (05:20)
[2024-03-08] MEDS: ALBUMIN HUMAN 5% 25 GM/500 ML BTL IV CONT (05:23)
[2024-03-08] MEDS: CENTRAL LINE FLUSH 10 ML IV PUSH ×3 (05:51→22:39)
[2024-03-08 07:44] LABS: Glucose Point of Care 355 mg/dl (65-105)
[2024-03-08] MEDS: PREGABALIN (*CRX) 75 MG CAPSULE 150 MG PO ×3 (08:01→16:40)
[2024-03-08] MEDS: ROSUVASTATIN 10 MG TABLET 20 MG PO (08:01)
[2024-03-08] MEDS: ASPIRIN 81 MG ENTERIC TABLET PO (08:01)
[2024-03-08] MEDS: CLOPIDOGREL BISULFATE 75 MG TABLET PO (08:01)
[2024-03-08] MEDS: buPROPion HCL SR (12HR) 100 MG TABCR PO (08:01)
[2024-03-08] MEDS: AMIODARONE HCL 200 MG TABLET 400 MG PO ×2 (08:02→16:40)
[2024-03-08] MEDS: INSULIN ASPART (*BKC) 100 UNITS/ML SUB-Q ×4 (08:02→21:30)
[2024-03-08] MEDS: INSULIN ASPART (*BKC) 100 UNITS/ML 17 UNITS SUB-Q ×3 (08:03→16:41)
[2024-03-08] MEDS: MICONAZOLE NITRATE 2% CREAM 30 GM TUBE 1 APPLIC TOPICAL ×2 (08:05→22:39)
[2024-03-08] MEDS: TAMSULOSIN HCL 0.4 MG CAPSULE PO (08:06)
[2024-03-08] MEDS: INSULIN GLARGINE (*BKC) 100 UNITS/ML 30 UNITS SUB-Q ×2 (08:07→21:27)
[2024-03-08] MEDS: FLUTICASONE/SALMETEROL 115-21 MCG INHALER 1 PUFF 2 PUFF INHALATION ×2 (08:34→20:42)
--- NOTE | 2024-03-08 08:48 | WPDINTPN ---
Progress Note: A&P Assessment and Plan (1) Hypotension: Code(s): I95.9 - Hypotension, unspecified Status: Acute Assessment and Plan: 03/07 transferred to ICU due to hypotension. Bedside limited echocardiogram was done by Dr. Baker with Cardiology and the effusion does not appear to be significant with no tamponade physiology CTA was ordered by Cardiology and was negative for any retroperitoneal hemorrhage. Hemoglobin also did not show any significant drop Hypotension likely secondary to secondary to multiple medications as patient is on metoprolol amlodipine Imdur and also received Dilaudid. Which were on hold and patient was given IV fluids leading to improvement in blood pressure Overnight patient went into AFib with RVR leading to drop in blood pressure again. Patient was started on Khanh-Synephrine infusion along with amiodarone infusion for rate control. Khanh has been weaned off at this time Monitor closely His WBC and lactate was elevated and UA suggestive of UTI although his procalcitonin is low Patient started on aztreonam due to multiple allergies for UTI Blood cultures and urine cultures have been sent (2) ST elevation (STEMI) myocardial infarction: Code(s): I21.3 - ST elevation (STEMI) myocardial infarction of unspecified site Status: Acute Assessment and Plan: Inferior lateral ST-elevation ID status post PTCA/PCI with KENYA x1 to mid RCA which was 90% blocked and was the culprit vessel. -no LV gram was performed due to acute on chronic kidney disease -patient was started on aspirin, Brilinta, rosuvastatin, metoprolol, Imdur, Echocardiogram Summary ? 1. Technically difficult study with limited views. ? 2. Left ventricular chamber dimension is normal. ? 3. Left ventricular systolic function is normal, estimated at 65-70%. ? 4. There is mildly increased left ventricular wall thickness. ? 5. The left ventricular diastolic function is grade I diastolic dysfunction. ? 6. Right ventricular systolic function is normal. ? 7. There is small circumferential pericardial effusion. ? 8. There is no significant valvular disease appreciated on this study. (3) Acute renal failure superimposed on stage 3 chronic kidney disease: Code(s): N17.9 - Acute kidney failure, unspecified; N18.30 - Chronic kidney disease, stage 3 unspecified Status: Acute Assessment and Plan: Acute on chronic renal disease -creatinine on admission is 2.50 (normal creatinine is between 1.30-1.70) -patient receiving post catheterization IV fluids and creatinine is improved to 2.0 and and then levels leveled 03/07 episode of hypotension and patient also received contrast for CTA ordered by Cardiology to rule out any retroperitoneal hemorrhage after initiation of Eliquis and drop in blood pressure 03/08 creatinine increased 2.5. Patient was given 2 L of fluid bolus yesterday post CT and also is getting 500 mL of albumin Nephrology is following Monitor urine output electrolytes and creatinine Start sodium bicarbonate for metabolic acidosis Lokelma ordered for mild hyperkalemia Repeat BMP ordered (4) Insulin dependent type 2 diabetes mellitus: Code(s): E11.9 - Type 2 diabetes mellitus without complications; Z79.4 - intermediate accountant (current) use of insulin Status: Acute Assessment and Plan: Accu-Cheks and sliding scale insulin Continue Lantus and with meal insulin (5) Peripheral vascular disease: Code(s): I73.9 - Peripheral vascular disease, unspecified Status: Acute Assessment and Plan: Chronic -right BKA -dopplerable pedal pulses on the left (6) Anemia: Code(s): D64.9 - Anemia, unspecified Status: Acute Assessment and Plan: Chronic anemia, repeat CBC acceptable (7) Chest pain: Code(s): R07.9 - Chest pain, unspecified Status: Acute Assessment and Plan: Post cardiac catheterization EKG reviewed diffuse ST changes which are unchanged previous EKG His chest
[2024-03-08] MEDS: SODIUM BICARBONATE TAB 650 MG TABLET 1300 MG PO ×2 (09:03→16:40)
[2024-03-08] MEDS: SODIUM BICARBONATE 8.4% 50 MEQ/50 ML SYRINGE IV PUSH (09:03)
[2024-03-08] MEDS: SODIUM ZIRCONIUM CYCLOSILICATE 10 GM POWD.PACK PO (09:28)
[2024-03-08] MEDS: MORPHINE SULFATE (*CRX) 2 MG/ML INJ IV PUSH ×2 (09:56→23:46)
--- NOTE | 2024-03-08 10:01 | PM.PNNEP ---
Progress Note: A&P Assessment and Plan (1) SIM (acute kidney injury): Code(s): N17.9 - Acute kidney failure, unspecified Status: Acute Assessment and Plan: worse by AM labs today suspect initial insult due to: acute ND concurrent ETHAN-I CONTACT CLERK prerenal factors(?) cannot r/o an element of CKD progression second insult likely due to transient hypotension/hemodynamic instability fluctuating H/H Afib with RVR contrast (cardiac cath + CT scan) will proceed with further testing - check urine studies, CPK, and renal ultrasound follow trend of repeat labs and UOP (2) Chronic kidney disease, stage 3: Code(s): N18.3 - Chronic kidney disease, stage 3 (moderate) Status: Chronic Assessment and Plan: baseline creatinine seems to run ~ 1.4 - 1.7mg/dl this would cause him to fluctuate between CKD stage 3A and stage 3B likely secondary to hypertension, diabetes, severe vascular disease (CAD + PAD + hyperlipidemia), and age (3) Hypotension: Code(s): I95.9 - Hypotension, unspecified Status: Acute Assessment and Plan: as noted yesterday (03/07) with transfer to ICU CTA C/A/P demonstrating large pericardial effusion, possible exudative and L>R pleural effusion limited bedside echo showing pericardial effusion but does not appear to be significant and no tamponade physiology etiology presumed to be medication related: antihypertensives pain medications improvement noted with IVFs required transient use of lexx-synephrine needed (off currently) UA suggest UTI - follow cultures on antibiotics monitor hemodynamics (4) Hyperkalemia: Code(s): E87.5 - Hyperkalemia Status: Acute Assessment and Plan: noted again presumably due to #1 on lokelma follow repeat K+ levels (5) ST elevation (STEMI) myocardial infarction: Code(s): I21.3 - ST elevation (STEMI) myocardial infarction of unspecified site Status: Acute Assessment and Plan: admission EKG showed inferior lateral ST-elevation ND s/p cardiac cath with PTCA/PCI with KENYA x 1 to mid RCA which was 90% blocked no LV gram was performed due to renal dysfunction Cardiology following Echo results noted remains on DAPT, statin, and metoprolol (6) Atrial fibrillation: Code(s): I48.91 - Unspecified atrial fibrillation Status: Acute Assessment and Plan: on amiodarone gtt on anticoagulation Cardiology following (7) Metabolic acidosis: Code(s): E87.20 - Acidosis, unspecified Status: Acute Assessment and Plan: recurrence noted started on oral sodium bicarbonate follow CO2 levels (8) Anemia: Code(s): D64.9 - Anemia, unspecified Status: Acute Assessment and Plan: due in part to CKD and acute illness follow trend of H/H consider empiric Epogen while hospitalized (9) Insulin dependent type 2 diabetes mellitus: Code(s): E11.9 - Type 2 diabetes mellitus without complications; Z79.4 - emt intermediate (current) use of insulin Status: Acute Assessment and Plan: follow accu-cheks glycemic control per hospitalist Will continue to follow. Subjective Date/time seen: 03/08/24 10:01 Interval history: Follow-up for acute kidney injury/acute renal failure on chronic kidney disease. Events noted yesterday -- transferred to ICU due to hypotension and pallor with the concern of a possible retroperitoneal bleed or cardiac tamponade; bedside echo demonstrated larger pericardial effusion but H/H was stable; given fluid bolus with some improvement in BP; CT of C/A/P done with results noted; further hypotension overnight due to Afib with RVR and was initiated on amiodarone gtt; hypotension persisted requiring central line placement and initiation of vasopressor therapy (but this has since been weaned off); urine output has declined with hemphill catheter placement done (although noted to b
--- NOTE | 2024-03-08 10:01 | P.PNNP_ITS ---
Progress Note: A&P Assessment and Plan (1) SIM (acute kidney injury): Code(s): N17.9 - Acute kidney failure, unspecified Status: Acute Assessment and Plan: * worse by AM labs today * suspect initial insult due to: * acute GA * concurrent ETHAN-I BALLOON SANDER * prerenal factors(?) * cannot r/o an element of CKD progression * second insult likely due to * transient hypotension/hemodynamic instability * fluctuating H/H * Afib with RVR * contrast (cardiac cath + CT scan) * will proceed with further testing - check urine studies, CPK, and renal ultrasound * follow trend of repeat labs and UOP (2) Chronic kidney disease, stage 3: Code(s): N18.3 - Chronic kidney disease, stage 3 (moderate) Status: Chronic Assessment and Plan: * baseline creatinine seems to run ~ 1.4 - 1.7mg/dl * this would cause him to fluctuate between CKD stage 3A and stage 3B * likely secondary to hypertension, diabetes, severe vascular disease (CAD + PAD + hyperlipidemia), and age (3) Hypotension: Code(s): I95.9 - Hypotension, unspecified Status: Acute Assessment and Plan: * as noted yesterday (03/07) with transfer to ICU * CTA C/A/P demonstrating large pericardial effusion, possible exudative and L>R pleural effusion * limited bedside echo showing pericardial effusion but does not appear to be significant and no tamponade physiology * etiology presumed to be medication related: * antihypertensives * pain medications * improvement noted with IVFs * required transient use of lexx-synephrine needed (off currently) * UA suggest UTI - follow cultures * on antibiotics * monitor hemodynamics (4) Hyperkalemia: Code(s): E87.5 - Hyperkalemia Status: Acute Assessment and Plan: * noted again * presumably due to #1 * on lokelma * follow repeat K+ levels (5) ST elevation (STEMI) myocardial infarction: Code(s): I21.3 - ST elevation (STEMI) myocardial infarction of unspecified site Status: Acute Assessment and Plan: * admission EKG showed inferior lateral ST-elevation GA * s/p cardiac cath with PTCA/PCI with KENYA x 1 to mid RCA which was 90% blocked * no LV gram was performed due to renal dysfunction * Cardiology following * Echo results noted * remains on DAPT, statin, and metoprolol (6) Atrial fibrillation: Code(s): I48.91 - Unspecified atrial fibrillation Status: Acute Assessment and Plan: * on amiodarone gtt * on anticoagulation * Cardiology following (7) Metabolic acidosis: Code(s): E87.20 - Acidosis, unspecified Status: Acute Assessment and Plan: * recurrence noted * started on oral sodium bicarbonate * follow CO2 levels (8) Anemia: Code(s): D64.9 - Anemia, unspecified Status: Acute Assessment and Plan: * due in part to CKD and acute illness * follow trend of H/H * consider empiric Epogen while hospitalized (9) Insulin dependent type 2 diabetes mellitus: Code(s): E11.9 - Type 2 diabetes mellitus without complications; Z79.4 - exterminator helper (current) use of insulin Status: Acute Assessment and Plan: * follow accu-cheks * glycemic control per hospitalist Will continue to follow. Subjective Date/time seen: 03/08/24 10:01 Interval history: Follow-up for acute kidney injury/acute renal failure on chronic kidney disease. Events noted yesterday -- transferred to ICU due to hypote
[2024-03-08] MEDS: AMIODARONE 360 MG/D5W 200 ML 360 MG/200 ML BAG 16.67 MG IV CONT ×2 (10:02→21:28)
--- NOTE | 2024-03-08 11:01 | PM.IMPN ---
Progress Note: A&P Assessment and Plan (1) Hypotension: Code(s): I95.9 - Hypotension, unspecified Status: Acute Assessment and Plan: Patient developed low BP on 03/07 and transferred to ICU due to hypotension. CTA Ch/A/P 03/07 ordered showing large pericardial effusion, possible exudative and L>R pleural effusion. Bedside limited echo 03/07 performed showing pericardial effusion but does not appear to be significant and no tamponade physiology Suspected HoTN related to multiple medications: metoprolol, amlodipine, Imdur and also received Dilaudid. Meds held and patient was given IV fluids leading to improvement in blood pressure Overnight patient went into AFib with RVR leading to drop in blood pressure again. Patient was started on Hkanh-Synephrine infusion along with amiodarone infusion for rate control. Khanh has been weaned off at this time Monitor closely in ICU His WBC has been climbing for the past few days. Lactate elevated to 3.1 UA suggestive of UTI so abx started after appropriate cultures obtained. Continue aztreonam. Follow-up on cultures. Monitor WBC (2) ST elevation (STEMI) myocardial infarction: Code(s): I21.3 - ST elevation (STEMI) myocardial infarction of unspecified site Status: Acute Assessment and Plan: Patient presents with neck pain and found to have inferior and anterolateral ST-elevation OR. Troponin normal x3. STEMI alert and patient went for [facility]: status post PTCA/PCI with KENYA x1 to mid RCA which was 90% blocked and was the culprit vessel. No LV gram was performed due to acute on chronic kidney disease Echo showing EF 65-70%, mild LV wall thickness, Grade i diastolic dysfunction, small pericardial effusion. Patient was started on aspirin, Brilinta, rosuvastatin, metoprolol, Imdur (3) Acute renal failure superimposed on stage 3 chronic kidney disease: Code(s): N17.9 - Acute kidney failure, unspecified; N18.30 - Chronic kidney disease, stage 3 unspecified Status: Acute Assessment and Plan: Acute on CKD with Cr normally between 1.30-1.70. Admission Creatinine was 2.50 Patient received post cath IV fluids. Cr stable in the 1.8-2 range. 03/07 episode of hypotension and patient also received contrast for CTA. Patient was given 2 L of fluid bolus post CT and also given albumin albumin 03/08 creatinine increased 2.5. Metabolic nongap acidosis. Potassium 5.5. Nephrology is following Sodium bicarbonate for metabolic acidosis and Lokelma for mild hyperkalemia started Monitor urine output, electrolytes and creatinine (4) Atrial fibrillation: Code(s): I48.91 - Unspecified atrial fibrillation Status: Acute Assessment and Plan: Patient developed AFib with RVR 03/06 and converted to NSR with Amiodarone. No prior hx of AFib listed He was on beta-mike 03/07 but held due to hypotension. Eliquis added but held due to potential of bleeding He is on aspirin and Plavix Amiodarone infusion was restarted due to AFib with RVR and will be continued for now (5) Insulin dependent type 2 diabetes mellitus: Code(s): E11.9 - Type 2 diabetes mellitus without complications; Z79.4 - intermediate manager (current) use of insulin Status: Acute Assessment and Plan: The patient's blood glucose was reviewed on 03/08 Glucose poorly controlled just over the past 24 hours. Continue AccuCheks covering with sliding scale. Hypoglycemia protocol available as needed. Continue to monitor for now (6) Peripheral vascular disease: Code(s): I73.9 - Peripheral vascular disease, unspecified Status: Acute Assessment and Plan: Chronic -right BKA -dopplerable pedal pulses on the left (7) Anemia: Code(s): D64.9 - Anemia, unspecified Status: Acute Assessment and Plan: Chronic anemia wiht Hgb mostly in the 8-9 range Hgb has drifted down to 7 range. Monitor and transfuse as needed (8) Chest pain: Code(s): R07.9 - C
[2024-03-08 11:32] LABS: Glucose Point of Care 394 mg/dl (65-105)
--- NOTE | 2024-03-08 13:59 | PM.PNCARD ---
Progress Note: A&P Assessment and Plan (1) Atrial fibrillation: Code(s): I48.91 - Unspecified atrial fibrillation Status: Acute (2) ST elevation (STEMI) myocardial infarction: Code(s): I21.3 - ST elevation (STEMI) myocardial infarction of unspecified site Status: Acute Plan 63-year-old man with: History of multivessel coronary disease admission to the hospital on 03/[address] elevation [place] underwent successful percutaneous revascularization of his mid circumflex which was technically challenging because of his extensive vascular disease and difficult vascular access. Procedure was ultimately done with a good angiographic result. Previous stented vessels in his LAD and right mid right coronary were remaining patent. He has extensive peripheral vascular disease and has undergone right lower extremity amputation. Patient has atrial fibrillation following this event initially to the and now this is persisting despite intravenous amiodarone that was started last evening. He is on dual anti-platelet therapy because of the PCI. He will need to be anticoagulated now has atrial fib is persisting. Will need to anticipate attempt at DC cardioversion during this hospitalization which will hopefully improve his hemodynamic status. If AF persists would anticipate probably doing this on Monday. Long-term prognosis for this patient given his diffuse coronary and peripheral disease is rather limited. Horacio Cleaning MD [facility] Subjective Date/time seen: Date of service: 03/08/24 13:59 Interval history: Follow-up visit in this 63-year-old man with diffuse coronary and peripheral arterial disease. Presented to the hospital on 03/04/2024 with some neck pain and altered mental status. STEMI was declared because of inferolateral ST segment elevation. High-grade stenosis in the trunk of the circumflex was identified and treated with PCI as detailed in the catheterization lab report. Previous LAD and right coronary stents were patent. Patient remains hospitalized was having difficulty with recurrence of atrial fibrillation last evening. This was a accompanied by hypotension requiring transfer back to the ICU. Likely this is a combination of his atrial fib other medications that were on board for hypertension. He is receiving intravenous amiodarone at this time and persisting atrial fib with heart rate 100-110. He is resting relatively comfortably upon awakening he offers no specific complaints. Exam Const: Orientation/consciousness: No patient oriented x3 Other: HENMT: Mouth: Yes moist mucous membranes Eyes: Sclera: sclerae normal Neck: Neck: supple Resp: Effort & Inspection: normal respiratory effort Other: Breath sounds diminished anterior difficult to sit up posterior auscultation Cardio: Rate: regular rate Rhythm: abnormal rhythm irregularly irregular Other: Has easily reproducible chest wall tenderness upon examination GI: GI Palp: Yes Soft to palpation Auscultation: normal bowel sounds Skin: General skin exam: normal color Neuro: General: No patient oriented x3 Extrem: Other: Status post right lower extremity BKA Objective Data Vital Signs Vital Signs: Vital Signs - 24 hr 03/07/24 14:00 03/07/24 15:00 03/07/24 16:00 Temperature 36.9 C 36.9 C Pulse Rate 98 79 79 Respiratory Rate 25 H 17 Blood Pressure 105/62 118/89 Pulse Oximetry 97 98 Oxygen Delivery Oxygen Flow Rate 03/07/24 17:53 03/07/24 18:00 03/07/24 16:00 Temperature 36.6 C Pulse Rate 78 78 81 Respiratory Rate 20 Blood Pressure 138/64 Pulse Oximetry 97 Oxygen Delivery Oxygen Flow Rate 03/07/24 18:00 03/07/24 16:00 03/07/24 20:41 Temperature Pulse Rate 79 Respiratory Rate Blood Pressure Pulse Oximetry 97 92 Oxygen Delivery Nasal Cannula Nasal Cannula Oxygen Flow Rate 2 1 03/07/24 20:00 03/07/24 20:00 03/07/24 20:00 Temperature 36
[2024-03-08] MEDS: PANTOPRAZOLE SODIUM IV 40 MG VIAL IV PUSH (15:00)
[2024-03-08 16:17] LABS: Basophils Percent Auto 0.1 % (0.2-1.2); Hematocrit 22.6 % (42.0-52.0); Hemoglobin 7.1 g/dL (14.0-18.0); Immature Granulocyte Absolute 0.18 K/mm3 (0.00-0.031); Immature Granulocyte Percent A 0.9 % (0-0.5); Lymphocytes Absolute Auto 1.62 K/mm3 (0.9-3.2); Lymphocytes Percent Auto 7.7 % (18.3-44.2); Mean Corpuscular HGB Conc 31.4 g/dl (32-36); Mean Corpuscular Hemoglobin 28.7 pg (26-34); Mean Corpuscular Volume 91.5 fl (80-100); Mean Platelet Volume 11.7 fl (7.4-10.4); Monocytes Percent Auto 4.8 % (2.6-8.5); Neutrophils Absolute Auto 18.1 K/mm3 (1.3-6.7); Neutrophils Percent Auto 86.5 % (45.5-73.1); Platelet Count Result 269 k/mm3 (150-375); Red Blood Count 2.47 M/mm3 (4.6-6.20); Red Cell Distribution Width 16.7 % (11.5-14.5)
[2024-03-08] MEDS: HEPARIN SOD/D5W 100 UNITS/ML 25,000 UNITS/250 ML BAG 15 UNITS IV CONT (16:18)
[2024-03-08 16:32] LABS: Anion Gap 7 mmol/L (4-12); Blood Urea Nitrogen 44 mg/dL (9-20); Calcium 5.6 mg/dL (8.4-10.2); Carbon Dioxide 13 mmol/L (22-30); Chloride 118 mmol/L (98-107); Estimated CRCL calculation 55 ml/min; Estimated Glomerular Filt Rate 44; Glucose 217 mg/dL (65-110); Sodium 138 mmol/L (137-145)
[2024-03-08 16:34] LABS: Prothrombin Time 23.8 Seconds (11.1-14.7)
[2024-03-08 16:35] LABS: Partial Thromboplastin Time 39.5 Seconds (22.3-36.8)
[2024-03-08 16:38] LABS: Glucose Point of Care 303 mg/dl (65-105)
[2024-03-08] MEDS: POTASSIUM CHLORIDE 20 MEQ PACKET (FOR LIQUID) 40 MEQ PO (17:54)
[2024-03-08] MEDS: POTASSIUM CHLORIDE 20 MEQ PACKET (FOR LIQUID) PO (22:40)
[2024-03-08 23:02] LABS: Glucose Point of Care 204 mg/dl (65-105)
[2024-03-08 23:11] LABS: Partial Thromboplastin Time 81.8 Seconds (22.3-36.8)
[2024-03-09] VITALS (51 sets, daily range): BP systolic 67–188; BP diastolic 27–157; PULSE 101–134; RESP 15–27; TEMP 36.5–37.5; O2SAT 83–98
[2024-03-09] MEDS: HYDROcodone/acetaminophen (*CRX) 5-325 MG TABLET 1 TAB PO ×3 (03:07→20:23)
[2024-03-09] MEDS: AZTREONAM 1 GM in SODIUM CHLORIDE 0.9% IV 50 ML 100 ML IVPB ×3 (04:18→18:33)
[2024-03-09] MEDS: CENTRAL LINE FLUSH 10 ML IV PUSH ×3 (04:19→20:11)
[2024-03-09 04:54] LABS: Basophils Percent Auto 0.2 % (0.2-1.2); Eosinophils Percent Auto 0.1 % (0-4.4); Hematocrit 21.5 % (42.0-52.0); Immature Granulocyte Absolute 0.21 K/mm3 (0.00-0.031); Immature Granulocyte Percent A 1.1 % (0-0.5); Lymphocytes Percent Auto 8.4 % (18.3-44.2); Mean Corpuscular HGB Conc 31.6 g/dl (32-36); Mean Corpuscular Hemoglobin 28.9 pg (26-34); Mean Corpuscular Volume 91.5 fl (80-100); Monocytes Absolute Auto 0.9 K/mm3 (0.1-0.6); Monocytes Percent Auto 4.7 % (2.6-8.5); Neutrophils Absolute Auto 16.3 K/mm3 (1.3-6.7); Neutrophils Percent Auto 85.5 % (45.5-73.1); Platelet Count Result 263 k/mm3 (150-375); Red Blood Count 2.35 M/mm3 (4.6-6.20); Red Cell Distribution Width 16.7 % (11.5-14.5)
[2024-03-09 04:56] LABS: Hemoglobin 6.8 g/dL (14.0-18.0)
[2024-03-09 05:05] LABS: Partial Thromboplastin Time 99.7 Seconds (22.3-36.8)
[2024-03-09 05:08] LABS: Alanine Aminotransferase 75 U/L (6-50); Albumin Level 3.2 g/dL (3.5-5.1); Alkaline Phosphatase 175 U/L (38-126); Anion Gap 10 mmol/L (4-12); Aspartate Amino Transferase 76 U/L (17-59); Bilirubin,Total 0.5 mg/dL (0.2-1.3); Blood Urea Nitrogen 63 mg/dL (9-20); Calcium 8.4 mg/dL (8.4-10.2); Carbon Dioxide 20 mmol/L (22-30); Chloride 103 mmol/L (98-107); Estimated CRCL calculation 36 ml/min; Estimated Glomerular Filt Rate 26; Glucose 215 mg/dL (65-110); Magnesium 2.4 mg/dL (1.6-2.3); Phosphorus 5.9 mg/dL (2.5-4.5); Potassium 4.4 mmol/L (3.4-5.0); Sodium 133 mmol/L (137-145)
[2024-03-09 06:39] LABS: Hepatitis B Surface Antigen Negative (Negative)
[2024-03-09 06:44] LABS: Hepatitis B Surface Anti Res Negative
[2024-03-09] MEDS: MORPHINE SULFATE (*CRX) 2 MG/ML INJ IV PUSH ×2 (06:50→13:00)
[2024-03-09 07:26] LABS: Glucose Point of Care 246 mg/dl (65-105)
--- NOTE | 2024-03-09 07:58 | WPDINTPN ---
Progress Note: A&P Assessment and Plan (1) Hypotension: Code(s): I95.9 - Hypotension, unspecified Status: Acute Assessment and Plan: 03/07 transferred to ICU due to hypotension. Bedside limited echocardiogram was done by Dr. Baker with Cardiology and the effusion does not appear to be significant with no tamponade physiology CTA was ordered by Cardiology and was negative for any retroperitoneal hemorrhage. Hemoglobin also did not show any significant drop Hypotension likely secondary to secondary to multiple medications as patient is on metoprolol amlodipine Imdur and also received Dilaudid. Which were on hold and patient was given IV fluids leading to improvement in blood pressure Overnight patient went into AFib with RVR leading to drop in blood pressure again. Patient was started on Khanh-Synephrine infusion along with amiodarone infusion for rate control. His WBC and lactate was elevated and UA suggestive of UTI although his procalcitonin was low Patient was started on aztreonam due to multiple allergies for UTI Blood cultures and urine cultures have been sent He remains on and off low-dose Khanh-Synephrine to support his blood pressure. Hold further IV fluids (2) ST elevation (STEMI) myocardial infarction: Code(s): I21.3 - ST elevation (STEMI) myocardial infarction of unspecified site Status: Acute Assessment and Plan: Inferior lateral ST-elevation MO status post PTCA/PCI with KENYA x1 to mid RCA which was 90% blocked and was the culprit vessel. -no LV gram was performed due to acute on chronic kidney disease -patient was started on aspirin, Brilinta, rosuvastatin. metoprolol, Imdur, on hold due to low blood pressure Echocardiogram Summary ? 1. Technically difficult study with limited views. ? 2. Left ventricular chamber dimension is normal. ? 3. Left ventricular systolic function is normal, estimated at 65-70%. ? 4. There is mildly increased left ventricular wall thickness. ? 5. The left ventricular diastolic function is grade I diastolic dysfunction. ? 6. Right ventricular systolic function is normal. ? 7. There is small circumferential pericardial effusion. ? 8. There is no significant valvular disease appreciated on this study. (3) Acute renal failure superimposed on stage 3 chronic kidney disease: Code(s): N17.9 - Acute kidney failure, unspecified; N18.30 - Chronic kidney disease, stage 3 unspecified Status: Acute Assessment and Plan: Acute on chronic renal disease -creatinine on admission is 2.50 (normal creatinine is between 1.30-1.70) -patient receiving post catheterization IV fluids and creatinine is improved to 2.0 and and then levels leveled 03/07 episode of hypotension and patient also received contrast for CTA ordered by Cardiology to rule out any retroperitoneal hemorrhage after initiation of Eliquis and drop in blood pressure 03/08 creatinine increased 2.5. Patient was given 2 L of fluid bolus yesterday post CT and also is getting 500 mL of albumin Nephrology is following Monitor urine output electrolytes and creatinine Continue but decrease dose of sodium bicarbonate for metabolic acidosis DC [facility] as hyperkalemia has resolved Urine output improved (4) Insulin dependent type 2 diabetes mellitus: Code(s): E11.9 - Type 2 diabetes mellitus without complications; Z79.4 - intermediate card tender (current) use of insulin Status: Acute Assessment and Plan: Accu-Cheks and sliding scale insulin Continue Lantus and increase dose Continue with meal insulin and sliding scale (5) Peripheral vascular disease: Code(s): I73.9 - Peripheral vascular disease, unspecified Status: Acute Assessment and Plan: Chronic -right BKA -dopplerable pedal pulses on the left (6) Anemia: Code(s): D64.9 - Anemia, unspecified Status: Acute Assessment and Plan: Chronic anemia Hemoglobin 6.9 today which is decreased from 7.1. This is likely a drift and not sugge
[2024-03-09] MEDS: FLUTICASONE/SALMETEROL 115-21 MCG INHALER 1 PUFF 2 PUFF INHALATION ×2 (08:02→20:10)
[2024-03-09] MEDS: AMIODARONE 150 MG/D5W 100 ML 150 MG/100 ML BAG 600 MG IV CONT (08:19)
[2024-03-09] MEDS: INSULIN GLARGINE (*BKC) 100 UNITS/ML 35 UNITS SUB-Q ×2 (08:20→20:19)
[2024-03-09] MEDS: INSULIN GLARGINE (*BKC) 100 UNITS/ML SUB-Q (08:20)
[2024-03-09] MEDS: INSULIN ASPART (*BKC) 100 UNITS/ML SUB-Q ×4 (08:21→20:15)
[2024-03-09] MEDS: INSULIN ASPART (*BKC) 100 UNITS/ML 17 UNITS SUB-Q ×3 (08:21→17:10)
[2024-03-09] MEDS: SODIUM CHLORIDE 0.9% IV 250 ML 30 ML IV CONT (08:25)
[2024-03-09] MEDS: ROSUVASTATIN 10 MG TABLET 20 MG PO (08:26)
[2024-03-09] MEDS: SODIUM BICARBONATE TAB 650 MG TABLET PO ×2 (08:26→17:56)
[2024-03-09] MEDS: AMIODARONE HCL 200 MG TABLET 400 MG PO ×2 (08:26→17:56)
[2024-03-09] MEDS: ASPIRIN 81 MG ENTERIC TABLET PO (08:26)
[2024-03-09] MEDS: buPROPion HCL SR (12HR) 100 MG TABCR PO (08:26)
[2024-03-09] MEDS: CLOPIDOGREL BISULFATE 75 MG TABLET PO (08:26)
[2024-03-09] MEDS: TAMSULOSIN HCL 0.4 MG CAPSULE PO (08:27)
[2024-03-09] MEDS: PREGABALIN (*CRX) 75 MG CAPSULE 150 MG PO ×3 (08:27→17:56)
[2024-03-09] MEDS: MICONAZOLE NITRATE 2% CREAM 30 GM TUBE 1 APPLIC TOPICAL ×2 (08:28→20:11)
[2024-03-09] MEDS: AMIODARONE 360 MG/D5W 200 ML 360 MG/200 ML BAG 16.67 MG IV CONT ×2 (08:28→19:43)
[2024-03-09] MEDS: PANTOPRAZOLE 40 MG TABLET PO (08:31)
[2024-03-09] MEDS: ALBUTEROL SULFATE (*SP) AEROSOL 1 PUFF 2 PUFF INHALATION ×2 (11:17→18:18)
[2024-03-09 11:34] LABS: Glucose Point of Care 339 mg/dl (65-105)
[2024-03-09] MEDS: HEPARIN SOD/D5W 100 UNITS/ML 25,000 UNITS/250 ML BAG 15 UNITS IV CONT (12:05)
[2024-03-09 12:48] LABS: Creatinine Urine 106.1 mg/dL
[2024-03-09 12:50] LABS: Creatinine Urine 104.5 mg/dL; Total Protein Urine Random 19 mg/dL; Ur Ttl Prot Creatinine Ratio 0.18 mg/mg (0-0.20); Urea Random Urine 614 MG/DL
[2024-03-09 12:55] LABS: Sodium Urine Random 27 meq/L
--- NOTE | 2024-03-09 12:58 | ECG_ITS ---
SEE SCANNED COPY FOR CONFIRMED REPORT MTDD
[2024-03-09] MEDS: NITROGLYCERIN SL 0.4 MG TABLET SUBLINGUAL ×2 (12:59→13:05)
[2024-03-09 13:02] LABS: Hematocrit 25.5 % (42.0-52.0); Hemoglobin 8.2 g/dL (14.0-18.0); Mean Corpuscular HGB Conc 32.2 g/dl (32-36); Mean Corpuscular Hemoglobin 29.4 pg (26-34); Mean Corpuscular Volume 91.4 fl (80-100); Platelet Count Result 261 k/mm3 (150-375); Red Blood Count 2.79 M/mm3 (4.6-6.20); Red Cell Distribution Width 16.3 % (11.5-14.5); White Blood Count 19.1 K/mm3 (4.5-10.0)
--- NOTE | 2024-03-09 13:06 | PM.PNCARD ---
Progress Note: A&P Assessment and Plan (1) Atrial fibrillation: Code(s): I48.91 - Unspecified atrial fibrillation Status: Acute Assessment and Plan: Persistent atrial fibrillation with RVR. Heart rate reasonable done around the 120s. Agree with IV amiodarone bolus. Continue IV amiodarone. Metoprolol on hold secondary to intermittent hypotension Would add additional AV tato blocking agent as BP would permit however and able to do so due to labile blood pressures and intermittent hypotension requiring re-initiation of Khanh-Synephrine. He remains on clopidogrel, heparin infusion. Plan for eventual cardioversion prior to discharge. Patient requires ongoing ICU care given intermittent hypotension, AFib with RVR. Patient remains quite ill with multiple comorbidities. (2) Chest pain: Code(s): R07.9 - Chest pain, unspecified Status: Acute Assessment and Plan: Atypical, reproducible musculoskeletal chest pain versus pericarditis. Unable to use colchicine given renal failure along with other anti-inflammatories. Avoid steroids. Morphine is ordered helps with his chest pain. Continue aspirin 81 mg daily, Imdur 30 mg daily. (3) ST elevation (STEMI) myocardial infarction: Code(s): I21.3 - ST elevation (STEMI) myocardial infarction of unspecified site Status: Acute Assessment and Plan: History of multivessel coronary disease admission to the hospital on 03/[address] elevation [place] underwent successful percutaneous revascularization of his mid circumflex which was technically challenging because of his extensive vascular disease and difficult vascular access. Procedure was ultimately done with a good angiographic result. Previous stented vessels in his LAD and right mid right coronary were remaining patent. He has extensive peripheral vascular disease and has undergone right lower extremity amputation. (4) Hypotension: Code(s): I95.9 - Hypotension, unspecified Status: Acute Assessment and Plan: Intermittent hypotension requiring Khanh-Synephrine. Management per Critical Care. (5) Acute renal failure superimposed on stage 3 chronic kidney disease: Code(s): N17.9 - Acute kidney failure, unspecified; N18.30 - Chronic kidney disease, stage 3 unspecified Status: Acute Assessment and Plan: Appreciate Nephrology involvement. Monitor renal function carefully, advised after toxicity agents. (6) Insulin dependent type 2 diabetes mellitus: Code(s): E11.9 - Type 2 diabetes mellitus without complications; Z79.4 - long-term (current) use of insulin Status: Acute Assessment and Plan: Continue insulin, monitor blood sugars per primary service. (7) Peripheral vascular disease: Code(s): I73.9 - Peripheral vascular disease, unspecified Status: Acute Assessment and Plan: Status post right BKA. No acute issues at this time. Continue medical therapy and risk factor modification. Continue rosuvastatin 20 mg daily, aspirin 81 mg daily. Subjective Date/time seen: Date of service: 03/09/24 13:06 Interval history: Follow-up visit in this 63-year-old man with diffuse coronary and peripheral arterial disease. Presented to the hospital on 03/04/2024 with some neck pain and altered mental status. STEMI was declared because of inferolateral ST segment elevation. High-grade stenosis in the trunk of the circumflex was identified and treated with PCI as detailed in the catheterization lab report. Previous LAD and right coronary stents were patent. Patient remains hospitalized was having difficulty with recurrence of atrial fibrillation last evening. This was a accompanied by hypotension requiring transfer back to the ICU. Likely this is a combination of his atrial fib other medications that were on board for hypertension. He is receiving intravenous amiodarone at this time and persisting atrial fib with heart rate 100-110. He is resting rel
[2024-03-09 13:08] LABS: Eosinophil Urine None Seen % (None Seen); Urine Eos QC 2nd Tech Confirmed
[2024-03-09 13:16] LABS: Creatine Kinase 93 U/L (55-170)
--- NOTE | 2024-03-09 13:23 | P.PNNP_ITS ---
Progress Note: A&P Assessment and Plan (1) SIM (acute kidney injury): Code(s): N17.9 - Acute kidney failure, unspecified Status: Acute Assessment and Plan: * worse by AM labs today * suspect initial insult due to: * acute AR * concurrent ETHAN-I CHAIRMAN EMERITUS * prerenal factors(?) * cannot r/o an element of CKD progression * second insult likely due to * transient hypotension/hemodynamic instability * fluctuating H/H * Afib with RVR * contrast (cardiac cath + CT scan) * UTI * evaluation to date noted: * urine eosinophil negative * urine electrolytes prerenal * mild proteinuria * renal ultrasound pending * follow trend of repeat labs and UOP (2) Chronic kidney disease, stage 3: Code(s): N18.3 - Chronic kidney disease, stage 3 (moderate) Status: Chronic Assessment and Plan: * baseline creatinine seems to run ~ 1.4 - 1.7mg/dl * this would cause him to fluctuate between CKD stage 3A and stage 3B * likely secondary to hypertension, diabetes, severe vascular disease (CAD + PAD + hyperlipidemia), and age (3) Hypotension: Code(s): I95.9 - Hypotension, unspecified Status: Acute Assessment and Plan: * as noted on 03/07 with transfer to ICU * CTA C/A/P demonstrating large pericardial effusion, possible exudative and L>R pleural effusion * limited bedside echo showing pericardial effusion but does not appear to be s ignificant and no tamponade physiology * etiology presumed to be medication related: * antihypertensives * pain medications * improvement noted with IVFs * element of sepsis playing a role? * on/off lexx-synephrine * UA suggest UTI - follow cultures * on antibiotics * monitor hemodynamics (4) Hyperkalemia: Code(s): E87.5 - Hyperkalemia Status: Acute Assessment and Plan: * better * presumably due to #1 * on lokelma * follow repeat K+ levels (5) ST elevation (STEMI) myocardial infarction: Code(s): I21.3 - ST elevation (STEMI) myocardial infarction of unspecified site Status: Acute Assessment and Plan: * admission EKG showed inferior lateral ST-elevation AR * s/p cardiac cath with PTCA/PCI with KENYA x 1 to mid RCA which was 90% blocked * no LV gram was performed due to renal dysfunction * Cardiology following * Echo results noted * remains on DAPT, statin, and metoprolol (6) Atrial fibrillation: Code(s): I48.91 - Unspecified atrial fibrillation Status: Acute Assessment and Plan: * on amiodarone gtt * on anticoagulation * Cardiology following (7) Metabolic acidosis: Code(s): E87.20 - Acidosis, unspecified Status: Acute Assessment and Plan: * better * on oral sodium bicarbonate * follow CO2 levels (8) Anemia: Code(s): D64.9 - Anemia, unspecified Status: Acute Assessment and Plan: * due in part to CKD and acute illness * follow trend of H/H * consider empiric Epogen while hospitalized (9) Insulin dependent type 2 diabetes mellitus: Code(s): E11.9 - Type 2 diabetes mellitus without complications; Z79.4 - intermediate (current) use of insulin Status: Acute Assessment and Plan: * follow accu-cheks * glycemic control per hospitalist/surgical coordinator Will continue to follow. Subjective Date/time seen: 03/09/24 13:23 Interval history: Follow-up for acute kidney injruy/acute renal failure on chronic kidney disease.
--- NOTE | 2024-03-09 13:23 | PM.PNNEP ---
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 prerenal factors(?) cannot r/o an element of CKD progression second insult likely due to transient hypotension/hemodynamic instability fluctuating H/H Afib with RVR contrast (cardiac cath + CT scan) UTI evaluation to date noted: urine eosinophil negative urine electrolytes prerenal mild proteinuria renal ultrasound pending follow trend of repeat labs and UOP (2) Chronic kidney disease, stage 3: Code(s): N18.3 - Chronic kidney disease, stage 3 (moderate) Status: Chronic Assessment and Plan: baseline creatinine seems to run ~ 1.4 - 1.7mg/dl this would cause him to fluctuate between CKD stage 3A and stage 3B likely secondary to hypertension, diabetes, severe vascular disease (CAD + PAD + hyperlipidemia), and age (3) Hypotension: Code(s): I95.9 - Hypotension, unspecified Status: Acute Assessment and Plan: as noted on 03/07 with transfer to ICU CTA C/A/P demonstrating large pericardial effusion, possible exudative and L>R pleural effusion limited bedside echo showing pericardial effusion but does not appear to be significant and no tamponade physiology etiology presumed to be medication related: antihypertensives pain medications improvement noted with IVFs element of sepsis playing a role? on/off lexx-synephrine UA suggest UTI - follow cultures on antibiotics monitor hemodynamics (4) Hyperkalemia: Code(s): E87.5 - Hyperkalemia Status: Acute Assessment and Plan: better presumably due to #1 on lokelma follow repeat K+ levels (5) ST elevation (STEMI) myocardial infarction: Code(s): I21.3 - ST elevation (STEMI) myocardial infarction of unspecified site Status: Acute Assessment and Plan: admission EKG showed inferior lateral ST-elevation [place] s/p cardiac cath with PTCA/PCI with KENYA x 1 to mid RCA which was 90% blocked no LV gram was performed due to renal dysfunction Cardiology following Echo results noted remains on DAPT, statin, and metoprolol (6) Atrial fibrillation: Code(s): I48.91 - Unspecified atrial fibrillation Status: Acute Assessment and Plan: on amiodarone gtt on anticoagulation Cardiology following (7) Metabolic acidosis: Code(s): E87.20 - Acidosis, unspecified Status: Acute Assessment and Plan: better on oral sodium bicarbonate follow CO2 levels (8) Anemia: Code(s): D64.9 - Anemia, unspecified Status: Acute Assessment and Plan: due in part to CKD and acute illness follow trend of H/H consider empiric Epogen while hospitalized (9) Insulin dependent type 2 diabetes mellitus: Code(s): E11.9 - Type 2 diabetes mellitus without complications; Z79.4 - long term care phlebotomist (current) use of insulin Status: Acute Assessment and Plan: follow accu-cheks glycemic control per hospitalist/rigging foreman Will continue to follow. Subjective Date/time seen: 03/09/24 13:23 Interval history: Follow-up for acute kidney injruy/acute renal failure on chronic kidney disease. No real significant change in renal function but better urine output noted in the last 24 hours; low H/H this AM and received PRBC transfusion; improvement in potassium and acidosis with current interventions; remains on amidorone as well as heparin gtt for atrial fibrillation; fluctuating hemodynamics with hypotension necessitating restarting of vasopressor therapy; still complaining of left pleuritic chest pain. Exam Narrative: General: elderly male in NAD but slightly confused Heart: normal S1 and S2; no rub Lungs: clear anteriorly, decreased a
[2024-03-09 14:35] LABS: Partial Thromboplastin Time 86.4 Seconds (22.3-36.8)
--- NOTE | 2024-03-09 15:12 | PM.IMPN ---
Progress Note: A&P Assessment and Plan (1) Hypotension: Code(s): I95.9 - Hypotension, unspecified Status: Acute Assessment and Plan: Patient developed low BP on 03/07 and transferred to ICU due to hypotension. CTA Ch/A/P 03/07 ordered showing large pericardial effusion, possible exudative and L>R pleural effusion. Bedside limited echo 03/07 performed showing pericardial effusion but does not appear to be significant and no tamponade physiology Suspected HoTN related to multiple medications: metoprolol, amlodipine, Imdur and also received Dilaudid. Meds held and patient was given IV fluids leading to improvement in blood pressure but then went into AFib with RVR leading to drop in blood pressure again. Patient was started on Khanh-Synephrine infusion along with amiodarone infusion for rate control. Khanh was weaned off but resumed and advanced UCx positive BCx NGTD WBC better. Continue aztreonam. Follow-up on cultures. Monitor WBC (2) ST elevation (STEMI) myocardial infarction: Code(s): I21.3 - ST elevation (STEMI) myocardial infarction of unspecified site Status: Acute Assessment and Plan: Patient presents with neck pain and found to have inferior and anterolateral ST-elevation [place]. Troponin normal x3. STEMI alert and patient went for LHC: status post PTCA/PCI with KENYA x1 to mid RCA which was 90% blocked and was the culprit vessel. No LV gram was performed due to acute on chronic kidney disease Echo showing EF 65-70%, mild LV wall thickness, Grade i diastolic dysfunction, small pericardial effusion. Patient was started on aspirin, Brilinta, rosuvastatin, metoprolol, Imdur; Imdur and metoprolol now on hold. (3) Acute renal failure superimposed on stage 3 chronic kidney disease: Code(s): N17.9 - Acute kidney failure, unspecified; N18.30 - Chronic kidney disease, stage 3 unspecified Status: Acute Assessment and Plan: Acute on CKD with Cr normally between 1.30-1.70. Admission Creatinine was 2.50 Patient received post cath IV fluids. Cr stable in the 1.8-2 range. 03/07 episode of hypotension and patient also received contrast for CTA. Patient was given 2 L of fluid bolus post CT and also given albumin albumin 03/08 creatinine increased 2.5. Metabolic nongap acidosis. Potassium 5.5. Nephrology is following Sodium bicarbonate for metabolic acidosis; Lokelma stopped since potassium better Monitor urine output, electrolytes and creatinine (4) Atrial fibrillation: Code(s): I48.91 - Unspecified atrial fibrillation Status: Acute Assessment and Plan: Patient developed AFib with RVR 03/06 and converted to NSR with Amiodarone. No prior hx of AFib listed He was on beta-mike 03/07 but held due to hypotension. Eliquis added but held due to potential of bleeding He is on aspirin and Plavix Amiodarone infusion was restarted due to AFib with RVR and will be continued for now Heparin drip added with possible cardioversion on Monday (5) UTI (urinary tract infection): Code(s): N39.0 - Urinary tract infection, site not specified Status: Acute Assessment and Plan: UA suggestive of UTI Patient on multiple allergies hence started on aztreonam IV UCx growing Proteus BCx NGTD Follow up on culture results (6) Insulin dependent type 2 diabetes mellitus: Code(s): E11.9 - Type 2 diabetes mellitus without complications; Z79.4 - direct service provider (current) use of insulin Status: Acute Assessment and Plan: The patient's blood glucose was reviewed on 03/09 Glucose still poorly controlled just over the past 24 hours. Continue AccuCheks covering with sliding scale. Hypoglycemia protocol available as needed. Continue to monitor for now (7) Anemia: Code(s): D64.9 - Anemia, unspecified Status: Acute Assessment and Plan: Chronic anemia wiht Hgb mostly in the 8-9 range Hgb has drifted down to 6.8 and he receive 1U PRBCs. Hgb i
[2024-03-09 16:40] LABS: Glucose Point of Care 257 mg/dl (65-105)
[2024-03-09 20:31] LABS: Glucose Point of Care 216 mg/dl (65-105)
[2024-03-09 21:06] LABS: Partial Thromboplastin Time 96.6 Seconds (22.3-36.8)
--- NOTE | 2024-03-09 21:41 | PC.NURSE ---
2015 Pt noted to be playing with genitals in bed while this RN in room. Asked patient what he was doing and he stated It makes me feel better . Patient instructed not to play with his genitals when the nurse is in the room.
[2024-03-09] MEDS: MELATONIN 5 MG TABLET 10 MG PO (23:46)
[2024-03-10] VITALS (50 sets, daily range): BP systolic 73–167; BP diastolic 38–136; PULSE 89–128; RESP 16–33; TEMP 36.4–36.9; O2SAT 91–100
--- NOTE | 2024-03-10 01:13 | PC.NURSE ---
Patient complaining he cant cough up secretions, feels SOB; lungs coarse, respirations 21, and oxygen saturation 93%. Spoke with Dr Lai. Mucinex 1200mg BID ordered with first dose now and one time low dose Xopenex breathing treatment ordered,
[2024-03-10] MEDS: guaiFENesin 12 HR 600 MG TABCR 1200 MG PO ×3 (01:18→20:16)
[2024-03-10] MEDS: LEVALBUTEROL NEB 1.25 MG/3 ML 0.63 MG INHALATION (01:25)
[2024-03-10] MEDS: AZTREONAM 1 GM in SODIUM CHLORIDE 0.9% IV 50 ML 100 ML IVPB ×3 (02:31→18:32)
[2024-03-10] MEDS: polyethylene glycoL 3350 17 GM POWD.PACK PO (03:39)
[2024-03-10] MEDS: HEPARIN SOD/D5W 100 UNITS/ML 25,000 UNITS/250 ML BAG 15 UNITS IV CONT (03:59)
[2024-03-10 05:18] LABS: Hematocrit 23.3 % (42.0-52.0); Hemoglobin 7.4 g/dL (14.0-18.0); Mean Corpuscular HGB Conc 31.8 g/dl (32-36); Mean Corpuscular Hemoglobin 29.1 pg (26-34); Mean Corpuscular Volume 91.7 fl (80-100); Mean Platelet Volume 11.9 fl (7.4-10.4); Platelet Count Result 240 k/mm3 (150-375); Red Blood Count 2.54 M/mm3 (4.6-6.20); Red Cell Distribution Width 16.9 % (11.5-14.5); White Blood Count 18.9 K/mm3 (4.5-10.0)
[2024-03-10] MEDS: CENTRAL LINE FLUSH 20 ML IV PUSH (05:19)
[2024-03-10] MEDS: CENTRAL LINE FLUSH 10 ML IV PUSH ×3 (05:20→20:39)
[2024-03-10 05:31] LABS: Partial Thromboplastin Time 132.5 Seconds (22.3-36.8)
[2024-03-10 05:38] LABS: Alanine Aminotransferase 74 U/L (6-50); Albumin Level 3.2 g/dL (3.5-5.1); Alkaline Phosphatase 176 U/L (38-126); Anion Gap 10 mmol/L (4-12); Aspartate Amino Transferase 41 U/L (17-59); Bilirubin,Total 0.5 mg/dL (0.2-1.3); Blood Urea Nitrogen 66 mg/dL (9-20); Calcium 8.2 mg/dL (8.4-10.2); Carbon Dioxide 20 mmol/L (22-30); Chloride 102 mmol/L (98-107); Estimated CRCL calculation 30 ml/min; Estimated Glomerular Filt Rate 20; Glucose 182 mg/dL (65-110); Magnesium 2.5 mg/dL (1.6-2.3); Phosphorus 6.7 mg/dL (2.5-4.5); Potassium 4.2 mmol/L (3.4-5.0); Sodium 132 mmol/L (137-145)
--- NOTE | 2024-03-10 07:58 | WPDINTPN ---
Progress Note: A&P Assessment and Plan (1) Hypotension: Code(s): I95.9 - Hypotension, unspecified Status: Acute Assessment and Plan: 03/07 transferred to ICU due to hypotension. Bedside limited echocardiogram was done by Dr. Baker with Cardiology and the effusion does not appear to be significant with no tamponade physiology CTA was ordered by Cardiology and was negative for any retroperitoneal hemorrhage. Hemoglobin also did not show any significant drop Hypotension likely secondary to secondary to multiple medications as patient is on metoprolol amlodipine Imdur and also received Dilaudid. Which were on hold and patient was given IV fluids leading to improvement in blood pressure Overnight patient went into AFib with RVR leading to drop in blood pressure again. Patient was started on Khanh-Synephrine infusion along with amiodarone infusion for rate control. His WBC and lactate was elevated and UA suggestive of UTI although his procalcitonin was low Patient was started on aztreonam due to multiple allergies for UTI. Urine cultures growing Proteus Blood cultures have been negative He remains on and off low-dose Khanh-Synephrine to support his blood pressure. Hold further IV fluids (2) ST elevation (STEMI) myocardial infarction: Code(s): I21.3 - ST elevation (STEMI) myocardial infarction of unspecified site Status: Acute Assessment and Plan: Inferior lateral ST-elevation [place] status post PTCA/PCI with KENYA x1 to mid RCA which was 90% blocked and was the culprit vessel. -no LV gram was performed due to acute on chronic kidney disease -patient was started on aspirin, Brilinta, rosuvastatin. metoprolol, Imdur, on hold due to low blood pressure Echocardiogram Summary ? 1. Technically difficult study with limited views. ? 2. Left ventricular chamber dimension is normal. ? 3. Left ventricular systolic function is normal, estimated at 65-70%. ? 4. There is mildly increased left ventricular wall thickness. ? 5. The left ventricular diastolic function is grade I diastolic dysfunction. ? 6. Right ventricular systolic function is normal. ? 7. There is small circumferential pericardial effusion. ? 8. There is no significant valvular disease appreciated on this study. (3) Acute renal failure superimposed on stage 3 chronic kidney disease: Code(s): N17.9 - Acute kidney failure, unspecified; N18.30 - Chronic kidney disease, stage 3 unspecified Status: Acute Assessment and Plan: Acute on chronic renal disease -creatinine on admission is 2.50 (normal creatinine is between 1.30-1.70) -patient receiving post catheterization IV fluids and creatinine is improved to 2.0 and and then levels leveled 03/07 episode of hypotension and patient also received contrast for CTA ordered by Cardiology to rule out any retroperitoneal hemorrhage after initiation of Eliquis and drop in blood pressure 03/08 creatinine increased 2.5. Patient was given 2 L of fluid bolus yesterday post CT and also is getting 500 mL of albumin Nephrology is following Monitor urine output electrolytes and creatinine Continue but decrease dose of sodium bicarbonate for metabolic acidosis DC [facility] as hyperkalemia has resolved Urine output improved (4) Insulin dependent type 2 diabetes mellitus: Code(s): E11.9 - Type 2 diabetes mellitus without complications; Z79.4 - USP (current) use of insulin Status: Acute Assessment and Plan: Accu-Cheks and sliding scale insulin Increase Lantus Continue meal insulin and sliding scale (5) Peripheral vascular disease: Code(s): I73.9 - Peripheral vascular disease, unspecified Status: Acute Assessment and Plan: Chronic -right BKA -dopplerable pedal pulses on the left (6) Anemia: Code(s): D64.9 - Anemia, unspecified Status: Acute Assessment and Plan: Chronic anemia Hemoglobin 6.9 today which is decreased from 7.1. This is likely a drift and not suggestive
[2024-03-10 08:30] LABS: Glucose Point of Care 197 mg/dl (65-105)
[2024-03-10] MEDS: AMIODARONE 360 MG/D5W 200 ML 360 MG/200 ML BAG 16.67 MG IV CONT ×2 (08:50→21:22)
[2024-03-10] MEDS: AMIODARONE 150 MG/D5W 100 ML 150 MG/100 ML BAG 600 MG IV CONT (09:20)
[2024-03-10] MEDS: INSULIN GLARGINE (*BKC) 100 UNITS/ML 40 UNITS SUB-Q ×2 (09:25→20:16)
[2024-03-10] MEDS: SODIUM BICARBONATE TAB 650 MG TABLET PO ×2 (09:25→16:37)
[2024-03-10] MEDS: CLOPIDOGREL BISULFATE 75 MG TABLET PO (09:26)
[2024-03-10] MEDS: PREGABALIN (*CRX) 75 MG CAPSULE 150 MG PO ×3 (09:26→16:37)
[2024-03-10] MEDS: PANTOPRAZOLE 40 MG TABLET PO (09:26)
[2024-03-10] MEDS: buPROPion HCL SR (12HR) 100 MG TABCR PO (09:26)
[2024-03-10] MEDS: TAMSULOSIN HCL 0.4 MG CAPSULE PO (09:26)
[2024-03-10] MEDS: ASPIRIN 81 MG ENTERIC TABLET PO (09:26)
[2024-03-10] MEDS: AMIODARONE HCL 200 MG TABLET 400 MG PO ×2 (09:26→16:37)
[2024-03-10] MEDS: ROSUVASTATIN 10 MG TABLET 20 MG PO (09:27)
[2024-03-10] MEDS: INSULIN ASPART (*BKC) 100 UNITS/ML 17 UNITS SUB-Q ×3 (09:27→16:39)
[2024-03-10] MEDS: FLUTICASONE/SALMETEROL 115-21 MCG INHALER 1 PUFF 2 PUFF INHALATION ×2 (09:57→20:53)
--- NOTE | 2024-03-10 11:18 | PM.PNNEP ---
Progress Note: A&P Assessment and Plan (1) SIM (acute kidney injury): Code(s): N17.9 - Acute kidney failure, unspecified Status: Acute Assessment and Plan: ongoing deterioration noted suspect initial insult due to: acute LA concurrent ETHAN-I [employer] prerenal factors(?) cannot r/o an element of CKD progression second insult likely due to fluctuating hypotension/hemodynamic instability fluctuating H/H Afib with RVR contrast (cardiac cath + CT scan) UTI evaluation to date noted: urine eosinophil negative urine electrolytes prerenal mild proteinuria CPK normal renal ultrasound c/w CKD follow trend of repeat labs and UOP (2) Chronic kidney disease, stage 3: Code(s): N18.3 - Chronic kidney disease, stage 3 (moderate) Status: Chronic Assessment and Plan: baseline creatinine seems to run ~ 1.4 - 1.7mg/dl this would cause him to fluctuate between CKD stage 3A and stage 3B likely secondary to hypertension, diabetes, severe vascular disease (CAD + PAD + hyperlipidemia), and age (3) Hypotension: Code(s): I95.9 - Hypotension, unspecified Status: Acute Assessment and Plan: as noted on 03/07 with transfer to ICU CTA C/A/P demonstrating large pericardial effusion, possible exudative and L>R pleural effusion limited bedside echo showing pericardial effusion but does not appear to be significant and no tamponade physiology etiology presumed to be medication related: antihypertensives pain medications improvement noted with IVFs initially element of sepsis playing a role? on/off lexx-synephrine - currently off UA suggest UTI - culture with Proteus on antibiotics monitor hemodynamics (4) Hyperkalemia: Code(s): E87.5 - Hyperkalemia Status: Acute Assessment and Plan: better presumably due to #1 on lokelma - wean off follow repeat K+ levels (5) ST elevation (STEMI) myocardial infarction: Code(s): I21.3 - ST elevation (STEMI) myocardial infarction of unspecified site Status: Acute Assessment and Plan: admission EKG showed inferior lateral ST-elevation [place] s/p cardiac cath with PTCA/PCI with KENYA x 1 to mid RCA which was 90% blocked no LV gram was performed due to renal dysfunction Cardiology following Echo results noted remains on DAPT and statin (6) Atrial fibrillation: Code(s): I48.91 - Unspecified atrial fibrillation Status: Acute Assessment and Plan: on amiodarone gtt on anticoagulation Cardiology following possible cardioversion (7) Metabolic acidosis: Code(s): E87.20 - Acidosis, unspecified Status: Acute Assessment and Plan: better on oral sodium bicarbonate - wean as tolerated follow CO2 levels (8) Anemia: Code(s): D64.9 - Anemia, unspecified Status: Acute Assessment and Plan: due in part to CKD and acute illness follow trend of H/H start Epogen while hospitalized (9) Insulin dependent type 2 diabetes mellitus: Code(s): E11.9 - Type 2 diabetes mellitus without complications; Z79.4 - meterman (current) use of insulin Status: Acute Assessment and Plan: follow accu-cheks glycemic control per hospitalist/fiber artist Will continue to follow. Subjective Date/time seen: 03/10/24 11:18 Interval history: Follow-up for acute kidney injruy/acute renal failure on chronic kidney disease. Renal function worse in association with a decline in urine output in the last 24 hours; on/off vasopressor therapy due to hyp[otenstion but it is currently off with relatively stable hemodynamics; remains on amiodarone and heparin gtt; mentation seems about the same (slightly confused but responsive); no other issues/events overnight or earlier this morning. Exam Narrative: General: elderly male in NAD but slightly confused Heart: normal S1 and S2; no rub Lungs: bebeto
--- NOTE | 2024-03-10 11:18 | P.PNNP_ITS ---
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 * prerenal factors(?) * cannot r/o an element of CKD progression * second insult likely due to * fluctuating hypotension/hemodynamic instability * fluctuating H/H * Afib with RVR * contrast (cardiac cath + CT scan) * UTI * evaluation to date noted: * urine eosinophil negative * urine electrolytes prerenal * mild proteinuria * CPK normal * renal ultrasound c/w CKD * follow trend of repeat labs and UOP (2) Chronic kidney disease, stage 3: Code(s): N18.3 - Chronic kidney disease, stage 3 (moderate) Status: Chronic Assessment and Plan: * baseline creatinine seems to run ~ 1.4 - 1.7mg/dl * this would cause him to fluctuate between CKD stage 3A and stage 3B * likely secondary to hypertension, diabetes, severe vascular disease (CAD + PAD + hyperlipidemia), and age (3) Hypotension: Code(s): I95.9 - Hypotension, unspecified Status: Acute Assessment and Plan: * as noted on 03/07 with transfer to ICU * CTA C/A/P demonstrating large pericardial effusion, possible exudative and L>R pleural effusion * limited bedside echo showing pericardial effusion but does not appear to be significant and no tamponade physiology * etiology presumed to be medication related: * antihypertensives * pain medications * improvement noted with IVFs initially * element of sepsis playing a role? * on/off lexx-synephrine - currently off * UA suggest UTI - culture with Proteus * on antibiotics * monitor hemodynamics (4) Hyperkalemia: Code(s): E87.5 - Hyperkalemia Status: Acute Assessment and Plan: * better * presumably due to #1 * on lokelma - wean off * follow repeat K+ levels (5) ST elevation (STEMI) myocardial infarction: Code(s): I21.3 - ST elevation (STEMI) myocardial infarction of unspecified site Status: Acute Assessment and Plan: * admission EKG showed inferior lateral ST-elevation [place] * s/p cardiac cath with PTCA/PCI with KENYA x 1 to mid RCA which was 90% blocked * no LV gram was performed due to renal dysfunction * Cardiology following * Echo results noted * remains on DAPT and statin (6) Atrial fibrillation: Code(s): I48.91 - Unspecified atrial fibrillation Status: Acute Assessment and Plan: * on amiodarone gtt * on anticoagulation * Cardiology following * possible cardioversion (7) Metabolic acidosis: Code(s): E87.20 - Acidosis, unspecified Status: Acute Assessment and Plan: * better * on oral sodium bicarbonate - wean as tolerated * follow CO2 levels (8) Anemia: Code(s): D64.9 - Anemia, unspecified Status: Acute Assessment and Plan: * due in part to CKD and acute illness * follow trend of H/H * start Epogen while hospitalized (9) Insulin dependent type 2 diabetes mellitus: Code(s): E11.9 - Type 2 diabetes mellitus without complications; Z79.4 - keno terminal operator (current) use of insulin Status: Acute Assessment and Plan: * follow accu-cheks * glycemic control per hospitalist/site surveyor Will continue to follow. Subjective Date/time seen: 03/10/24 11:18 Interval his
[2024-03-10] MEDS: INSULIN ASPART (*BKC) 100 UNITS/ML SUB-Q (11:29)
[2024-03-10] MEDS: MICONAZOLE NITRATE 2% CREAM 30 GM TUBE 1 APPLIC TOPICAL ×2 (11:30→20:17)
[2024-03-10 11:37] LABS: Glucose Point of Care 241 mg/dl (65-105)
--- NOTE | 2024-03-10 11:39 | PM.IMPN ---
Progress Note: A&P Assessment and Plan (1) Hypotension: Code(s): I95.9 - Hypotension, unspecified Status: Acute Assessment and Plan: Patient developed low BP on 03/07 and transferred to ICU due to hypotension. CTA Ch/A/P 03/07 showing large pericardial effusion, possible exudative and L>R pleural effusion. Bedside limited echo 03/07 showing pericardial effusion but does not appear to be significant and no tamponade physiology Suspected HoTN related to multiple medications: metoprolol, amlodipine, Imdur and also received Dilaudid. Meds held and patient was given IV fluids leading to improvement in blood pressure but then went into AFib with RVR leading to drop in blood pressure again. Patient was started on Khanh-Synephrine infusion along with amiodarone infusion for rate control. Khanh was weaned off again UCx growing Proteus BCx NGTD WBC better. Continue aztreonam. Monitor WBC and BP. (2) ST elevation (STEMI) myocardial infarction: Code(s): I21.3 - ST elevation (STEMI) myocardial infarction of unspecified site Status: Acute Assessment and Plan: Patient presents with neck pain and found to have inferior and anterolateral ST-elevation [place]. Troponin normal x3. STEMI alert and patient went for LHC: status post PTCA/PCI with KENYA x1 to mid RCA which was 90% blocked and was the culprit vessel. No LV gram was performed due to acute on chronic kidney disease Echo showing EF 65-70%, mild LV wall thickness, Grade I diastolic dysfunction, small pericardial effusion. Patient was started on aspirin, Brilinta, rosuvastatin, metoprolol, Imdur; Imdur and metoprolol now on hold. (3) Acute renal failure superimposed on stage 3 chronic kidney disease: Code(s): N17.9 - Acute kidney failure, unspecified; N18.30 - Chronic kidney disease, stage 3 unspecified Status: Acute Assessment and Plan: Acute on CKD with Cr normally between 1.30-1.70. Admission Creatinine was 2.50 Patient received post cath IV fluids. Cr stable in the 1.8-2 range. 03/07 episode of hypotension and patient also received contrast for CTA. Patient was given 2 L of fluid bolus post CT and also given albumin Creatinine increased today to 3.1. Metabolic nongap acidosis. Potassium normal. UPO 1500 yesterday Nephrology is following Sodium bicarbonate for metabolic acidosis; Lokelma stopped since potassium better Monitor urine output, electrolytes and creatinine (4) Atrial fibrillation: Code(s): I48.91 - Unspecified atrial fibrillation Status: Acute Assessment and Plan: Patient developed AFib with RVR 03/06 and converted to NSR with Amiodarone. No prior hx of AFib listed He was on beta-mike 03/07 but held due to hypotension. Eliquis added but held due to potential of bleeding He is on aspirin and Plavix Amiodarone infusion was restarted due to AFib with RVR and will be continued for now Heparin drip added with possible cardioversion tomorrow (5) UTI (urinary tract infection): Code(s): N39.0 - Urinary tract infection, site not specified Status: Acute Assessment and Plan: UA suggestive of UTI Patient on multiple allergies hence started on aztreonam IV UCx growing Proteus BCx NGTD Contnue abx, Follow (6) Insulin dependent type 2 diabetes mellitus: Code(s): E11.9 - Type 2 diabetes mellitus without complications; Z79.4 - care home (current) use of insulin Status: Acute Assessment and Plan: A1c 8.0. The patient's blood glucose was reviewed on 03/10 Glucose better controlled just over the past 24 hours. Continue AccuCheks covering with sliding scale. Hypoglycemia protocol available as needed. Continue to monitor for now (7) Anemia: Code(s): D64.9 - Anemia, unspecified Status: Acute Assessment and Plan: Chronic anemia wiht Hgb mostly in the 8-9 range Hgb has drifted down to 6.8 on 03/09 and he receive 1U PRBCs. Hgb 7.4 today. No evidence
--- NOTE | 2024-03-10 12:11 | PM.PNCARD ---
Progress Note: A&P Assessment and Plan (1) Atrial fibrillation: Code(s): I48.91 - Unspecified atrial fibrillation Status: Acute Assessment and Plan: Persistent atrial fibrillation with RVR. Heart rate reasonable done around the 120s. Agree with IV amiodarone bolus. Continue IV amiodarone. Metoprolol on hold secondary to intermittent hypotension Would add additional AV tato blocking agent as BP would permit however and able to do so due to labile blood pressures and intermittent hypotension requiring re-initiation of Khanh-Synephrine. He remains on clopidogrel, heparin infusion. Plan for eventual cardioversion prior to discharge. Patient requires ongoing ICU care given intermittent hypotension, AFib with RVR. Patient remains quite ill with multiple comorbidities. Patient is off pressors. Hemodynamically stable but remains tachycardic not controlled on amiodarone. When BP permits resume metoprolol. Continue systemic anticoagulation. Keep patient NPO after in for cardioversion tomorrow and attempt to restore sinus rhythm. Discussed with patient and Critical Care. They verbalized understanding and agreed. However, will need to reassess patient status in a.m. including clinical status, BP, and anemia. Concerning he remains significantly anemic (2) Chest pain: Code(s): R07.9 - Chest pain, unspecified Status: Acute Assessment and Plan: Resolved Atypical, reproducible musculoskeletal chest pain versus pericarditis. Unable to use colchicine given renal failure along with other anti-inflammatories. Avoid steroids. Morphine is ordered helps with his chest pain. Continue aspirin 81 mg daily. (3) ST elevation (STEMI) myocardial infarction: Code(s): I21.3 - ST elevation (STEMI) myocardial infarction of unspecified site Status: Acute Assessment and Plan: History of multivessel coronary disease admission to the hospital on 03/[address] elevation [place] underwent successful percutaneous revascularization of his mid circumflex which was technically challenging because of his extensive vascular disease and difficult vascular access. Procedure was ultimately done with a good angiographic result. Previous stented vessels in his LAD and right mid right coronary were remaining patent. He has extensive peripheral vascular disease and has undergone right lower extremity amputation. Stable, continue clopidogrel 75 mg daily, aspirin 81 mg daily. Monitor for bleeding on triple therapy with heparin infusion. Transition to oral systemic anticoagulation. (4) Hypotension: Code(s): I95.9 - Hypotension, unspecified Status: Acute Assessment and Plan: Intermittent hypotension resolved, off Khanh-Synephrine. Management per Critical Care. (5) Acute renal failure superimposed on stage 3 chronic kidney disease: Code(s): N17.9 - Acute kidney failure, unspecified; N18.30 - Chronic kidney disease, stage 3 unspecified Status: Acute Assessment and Plan: Appreciate Nephrology involvement. Monitor renal function carefully, advised after toxicity agents. (6) Insulin dependent type 2 diabetes mellitus: Code(s): E11.9 - Type 2 diabetes mellitus without complications; Z79.4 - snf (current) use of insulin Status: Acute Assessment and Plan: Continue insulin, monitor blood sugars per primary service. (7) Peripheral vascular disease: Code(s): I73.9 - Peripheral vascular disease, unspecified Status: Acute Assessment and Plan: Status post right BKA. No acute issues at this time. Continue medical therapy and risk factor modification. Continue rosuvastatin 20 mg daily, aspirin 81 mg daily. Subjective Date/time seen: Date of service: 03/10/24 12:11 Interval history: Follow-up visit in this 63-year-old man with diffuse coronary and peripheral arterial disease. Presented to the hospital on 03/04/2024 with some neck pain and altered mental status.
[2024-03-10] MEDS: HEPARIN SODIUM 5,000 UNITS/ML VIAL 3500 UNITS IV PUSH (12:15)
[2024-03-10] MEDS: BISACODYL 10 MG SUPPOSITORY RECTAL (12:59)
[2024-03-10 16:34] LABS: Glucose Point of Care 180 mg/dl (65-105)
[2024-03-10] MEDS: EPOETIN ALFA 20,000 UNITS/ML VIAL 20000 UNITS SUB-Q (16:36)
[2024-03-10 19:01] LABS: Partial Thromboplastin Time 131.1 Seconds (22.3-36.8)
[2024-03-10 19:49] LABS: Glucose Point of Care 153 mg/dl (65-105)
[2024-03-10] MEDS: HEPARIN SOD/D5W 100 UNITS/ML 25,000 UNITS/250 ML BAG 13 UNITS IV CONT (21:35)
[2024-03-10] MEDS: HYDROcodone/acetaminophen (*CRX) 5-325 MG TABLET 1 TAB PO (21:47)
[2024-03-11] VITALS (32 sets, daily range): BP systolic 67–168; BP diastolic 40–123; PULSE 60–124; RESP 11–23; TEMP 36.4–36.7; O2SAT 90–100
[2024-03-11] MEDS: DOCUSATE SODIUM 400 MG/400 ML ENEMA RECTAL (00:40)
[2024-03-11] MEDS: ALBUTEROL SULFATE (*SP) AEROSOL 1 PUFF 2 PUFF INHALATION ×3 (02:07→09:30)
[2024-03-11 02:18] LABS: Partial Thromboplastin Time 85.8 Seconds (22.3-36.8)
[2024-03-11] MEDS: AZTREONAM 1 GM in SODIUM CHLORIDE 0.9% IV 50 ML 100 ML IVPB ×3 (03:24→19:40)
[2024-03-11] MEDS: CENTRAL LINE FLUSH 10 ML IV PUSH ×3 (06:20→20:37)
[2024-03-11 06:53] LABS: Hematocrit 25.3 % (42.0-52.0); Hemoglobin 7.9 g/dL (14.0-18.0); Mean Corpuscular HGB Conc 31.2 g/dl (32-36); Mean Corpuscular Hemoglobin 29.2 pg (26-34); Mean Corpuscular Volume 93.4 fl (80-100); Mean Platelet Volume 12.1 fl (7.4-10.4); Platelet Count Result 248 k/mm3 (150-375); Red Blood Count 2.71 M/mm3 (4.6-6.20); Red Cell Distribution Width 17.1 % (11.5-14.5); White Blood Count 16.7 K/mm3 (4.5-10.0)
[2024-03-11 07:03] LABS: Partial Thromboplastin Time 77.8 Seconds (22.3-36.8)
[2024-03-11 07:04] LABS: Alanine Aminotransferase 65 U/L (6-50); Albumin Level 3.4 g/dL (3.5-5.1); Alkaline Phosphatase 181 U/L (38-126); Anion Gap 11 mmol/L (4-12); Aspartate Amino Transferase 32 U/L (17-59); Bilirubin,Total 0.5 mg/dL (0.2-1.3); Blood Urea Nitrogen 67 mg/dL (9-20); Calcium 8.5 mg/dL (8.4-10.2); Carbon Dioxide 22 mmol/L (22-30); Chloride 102 mmol/L (98-107); Estimated CRCL calculation 30 ml/min; Estimated Glomerular Filt Rate 20; Glucose 143 mg/dL (65-110); Magnesium 2.6 mg/dL (1.6-2.3); Potassium 4.1 mmol/L (3.4-5.0); Sodium 135 mmol/L (137-145)
[2024-03-11] MEDS: FLUTICASONE/SALMETEROL 115-21 MCG INHALER 1 PUFF 2 PUFF INHALATION ×2 (07:10→19:55)
[2024-03-11 07:43] LABS: Glucose Point of Care 132 mg/dl (65-105)
--- NOTE | 2024-03-11 08:21 | PM.PNCARD ---
Progress Note: A&P Assessment and Plan (1) Atrial fibrillation: Code(s): I48.91 - Unspecified atrial fibrillation Status: Acute (2) ST elevation (STEMI) myocardial infarction: Code(s): I21.3 - ST elevation (STEMI) myocardial infarction of unspecified site Status: Acute Plan 63-year-old man with: Very complex situation with severe peripheral and coronary vascular disease, emergency stenting of the mid circumflex trunk on admission in the setting of chest pain and inferolateral ST elevation. Patient also has extensive peripheral vascular disease and has undergone right lower extremity amputation. Also has chronic kidney disease and morbid obesity. Will try to arrange for DC cardioversion sometime today if/when anesthesia services are available to assist with this for his airway protection. Horacio Cleaning MD [facility] Subjective Date/time seen: Date of service: 03/11/24 08:21 Interval history: Follow-up visit in this 63-year-old man with diffuse coronary and peripheral arterial disease. Presented to the hospital on 03/04/2024 with some neck pain and altered mental status. STEMI was declared because of inferolateral ST segment elevation. High-grade stenosis in the trunk of the circumflex was identified and treated with PCI as detailed in the catheterization lab report. Previous LAD and right coronary stents were patent. Patient remains hospitalized was having difficulty with recurrence of atrial fibrillation last evening. This was a accompanied by hypotension requiring transfer back to the ICU. Likely this is a combination of his atrial fib other medications that were on board for hypertension. He is receiving intravenous amiodarone at this time and persisting atrial fib with heart rate 100-110. He is resting relatively comfortably upon awakening he offers no specific complaints. Date of service 03/09/2024: He was not complaining of chest pain earlier today is reported but not complaints of significant reproducible chest pain worse with deep breathing, movement, coughing or any palpation. Morphine helps. BP variable, Khanh-Synephrine held secondary to hypertension. Date of service 03/10/2024: Patient is sleepy but arousable. Feels better today. No chest pain. Breathing stable. He is off Khanh-Synephrine. BP much more stable. Remains tachycardic in AFib with RVR heart rates 120s on average. Date of service 03/11/2024: The patient is hemodynamically stable is oxygenating adequately on nasal cannula O2 but is complaining that he is still short of breath with modest activity. Likely discussion with the patient today about the fact that he is persisting in atrial fibrillation now for the last 4 days despite intravenous amiodarone. Recommend attempting DC cardioversion. Because of his medical complexity and obesity will need to coordinate this with anesthesia for airway protection. Will try to get this scheduled for today Exam Narrative: General: Well developed, alert and oriented x3. No apparent distress, comfortable, pleasant, and cooperative. Head: atraumatic, normocephalic Eyes: EOM intact, sclerae anicteric, conjunctivae unremarkable Ears/Nose: external inspection of ears and nose were grossly normal Mouth/Throat: oral mucosa pink and moist Neck: supple, normal range of motion, no jugular venous distention or carotid bruits, thyroid nonpalpable, trachea midline. Cardiac: Regular rate and rhythm, normal S1-S2, no murmurs No gallops or rubs. Lungs: Clear to auscultation bilaterally, no rales, wheezes, or rhonchi. Abdomen: Soft, nontender, nondistended, positive bowel sounds throughout. No appreciable hepatosplenomegaly, rebound guarding or rigidity noted. Abdominal aorta nonpalpable, no appreciable bruits. Extremities: No edema, no clubbing, or cyanosis. Extremities warm and well perfused. Skin: Warm and dry without ecchymoses, rashes, and/or petechiae. Mu
--- NOTE | 2024-03-11 08:42 | PCOTNOTE ---
Per nursing, pt. receiving cardioversion today. Due to safety concerns for increased exertion, therapy services will wait to continue treatment after procedure when pt. able to safely participate. Nursing aware. Following.
[2024-03-11] MEDS: AMIODARONE 360 MG/D5W 200 ML 360 MG/200 ML BAG 16.67 MG IV CONT ×2 (09:13→20:55)
[2024-03-11] MEDS: EPOETIN ALFA-EPBX 10,000 UNITS/ML VIAL 10000 UNITS SUB-Q (09:14)
--- NOTE | 2024-03-11 09:16 | WPDINTPN ---
Progress Note: A&P Assessment and Plan (1) Hypotension: Code(s): I95.9 - Hypotension, unspecified Status: Acute Assessment and Plan: 03/07 transferred to ICU due to hypotension. Bedside limited echocardiogram was done by Dr. Baker with Cardiology and the pericardial effusion does not appear to be significant with no tamponade physiology. CTA was ordered by Cardiology and was negative for any retroperitoneal hemorrhage. Hemoglobin also did not show any significant drop Hypotension likely secondary to secondary to multiple medications as patient is on metoprolol amlodipine Imdur and also received Dilaudid. Which were on hold and patient was given IV fluids leading to improvement in blood pressure Later patient went into AFib with RVR leading to drop in blood pressure again. Patient was started on Khanh-Synephrine infusion along with amiodarone infusion for rate control. His WBC and lactate was elevated and UA suggestive of UTI although his procalcitonin was low Patient was started on aztreonam due to multiple allergies for UTI. Urine cultures growing Proteus Blood cultures have been negative He remains on and off low-dose Khanh-Synephrine to support his blood pressure. Hold further IV fluids (2) ST elevation (STEMI) myocardial infarction: Code(s): I21.3 - ST elevation (STEMI) myocardial infarction of unspecified site Status: Acute Assessment and Plan: Inferior lateral ST-elevation LA status post PTCA/PCI with KENYA x1 to mid RCA which was 90% blocked and was the culprit vessel. -no LV gram was performed due to acute on chronic kidney disease -patient was started on aspirin, Brilinta, rosuvastatin. metoprolol, Imdur, on hold due to low blood pressure Echocardiogram Summary ? 1. Technically difficult study with limited views. ? 2. Left ventricular chamber dimension is normal. ? 3. Left ventricular systolic function is normal, estimated at 65-70%. ? 4. There is mildly increased left ventricular wall thickness. ? 5. The left ventricular diastolic function is grade I diastolic dysfunction. ? 6. Right ventricular systolic function is normal. ? 7. There is small circumferential pericardial effusion. ? 8. There is no significant valvular disease appreciated on this study. (3) Acute renal failure superimposed on stage 3 chronic kidney disease: Code(s): N17.9 - Acute kidney failure, unspecified; N18.30 - Chronic kidney disease, stage 3 unspecified Status: Acute Assessment and Plan: Acute on chronic renal disease -creatinine on admission is 2.50 (normal creatinine is between 1.30-1.70) -patient receiving post catheterization IV fluids and creatinine is improved to 2.0 and and then levels leveled 03/07 episode of hypotension and patient also received contrast for CTA ordered by Cardiology to rule out any retroperitoneal hemorrhage after initiation of Eliquis and drop in blood pressure 03/08 creatinine increased 2.5. Patient was given 2 L of fluid bolus yesterday post CT and also is getting 500 mL of albumin 03/11 creatinine 3.1 Renal ultrasound -Bilateral cortical atrophy. Moderate right renal atrophy. Renal sinus lipomatosis. Small right pleural effusion. Nephrology is following Monitor urine output electrolytes and creatinine Continue but decrease dose of sodium bicarbonate for metabolic acidosis Off Lokelma as hyperkalemia has resolved Continue Yaoub for accurate I&Os and concern for urinary retention (4) Insulin dependent type 2 diabetes mellitus: Code(s): E11.9 - Type 2 diabetes mellitus without complications; Z79.4 - care home (current) use of insulin Status: Acute Assessment and Plan: Accu-Cheks and sliding scale insulin Continue Lantus Continue with meal insulin and sliding scale (5) Peripheral vascular disease: Code(s): I73.9 - Peripheral vascular disease, unspecified Status: Acute Assessment and Plan: Chronic -right BKA -dopplerable pedal pulses on the left (6
--- NOTE | 2024-03-11 10:16 | ECG_ITS ---
SEE SCANNED COPY FOR CONFIRMED REPORT. MTDD
--- NOTE | 2024-03-11 10:33 | P.PNNP_ITS ---
Progress Note: A&P Assessment and Plan (1) SIM (acute kidney injury): Code(s): N17.9 - Acute kidney failure, unspecified Status: Acute Assessment and Plan: * still elevated but stable in the last 24 hours * suspect initial insult due to: * acute MS * concurrent [employer] * prerenal factors(?) * cannot r/o an element of CKD progression * second insult likely due to * fluctuating hypotension/hemodynamic instability * fluctuating H/H * Afib with RVR * contrast (cardiac cath + CT scan) * UTI * evaluation to date noted: * urine eosinophil negative * urine electrolytes prerenal * mild proteinuria * CPK normal * renal ultrasound c/w CKD * follow trend of repeat labs and UOP (2) Chronic kidney disease, stage 3: Code(s): N18.3 - Chronic kidney disease, stage 3 (moderate) Status: Chronic Assessment and Plan: * baseline creatinine seems to run ~ 1.4 - 1.7mg/dl * this would cause him to fluctuate between CKD stage 3A and stage 3B * likely secondary to hypertension, diabetes, severe vascular disease (CAD + PAD + hyperlipidemia), and age (3) Hypotension: Code(s): I95.9 - Hypotension, unspecified Status: Acute Assessment and Plan: * as noted on 03/07 with transfer to ICU * CTA C/A/P demonstrating large pericardial effusion, possible exudative and L>R pleural effusion * limited bedside echo showing pericardial effusion but does not appear to be significant and no tamponade physiology * etiology presumed to be medication related: * antihypertensives * pain medications * improvement noted with IVFs initially * on/off lexx-synephrine - currently off * UA suggest UTI - culture with Proteus * on antibiotics * monitor hemodynamics (4) Hyperkalemia: Code(s): E87.5 - Hyperkalemia Status: Acute Assessment and Plan: * better * presumably due to #1 * on lokelma - wean off * follow repeat K+ levels (5) ST elevation (STEMI) myocardial infarction: Code(s): I21.3 - ST elevation (STEMI) myocardial infarction of unspecified site Status: Acute Assessment and Plan: * admission EKG showed inferior lateral ST-elevation MS * s/p cardiac cath with PTCA/PCI with KENYA x 1 to mid RCA which was 90% blocked * no LV gram was performed due to renal dysfunction * Cardiology following * Echo results noted * remains on DAPT and statin (6) Atrial fibrillation: Code(s): I48.91 - Unspecified atrial fibrillation Status: Acute Assessment and Plan: * on amiodarone gtt * on anticoagulation * Cardiology following * possible cardioversion today (7) Metabolic acidosis: Code(s): E87.20 - Acidosis, unspecified Status: Acute Assessment and Plan: * better * on oral sodium bicarbonate - wean as tolerated * follow CO2 levels (8) Anemia: Code(s): D64.9 - Anemia, unspecified Status: Acute Assessment and Plan: * due in part to CKD and acute illness * follow trend of H/H * start Epogen while hospitalized (9) Insulin dependent type 2 diabetes mellitus: Code(s): E11.9 - Type 2 diabetes mellitus without complications; Z79.4 - shelter (current) use of insulin Status: Acute Assessment and Plan: * follow accu-cheks * 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 Subjective Date/time seen: 03/11/24 10:33 Interval history: Foll
--- NOTE | 2024-03-11 10:33 | PM.PNNEP ---
Progress Note: A&P Assessment and Plan (1) SIM (acute kidney injury): Code(s): N17.9 - Acute kidney failure, unspecified Status: Acute Assessment and Plan: still elevated but stable in the last 24 hours suspect initial insult due to: acute [place] concurrent [employer] prerenal factors(?) cannot r/o an element of CKD progression second insult likely due to fluctuating hypotension/hemodynamic instability fluctuating H/H Afib with RVR contrast (cardiac cath + CT scan) UTI evaluation to date noted: urine eosinophil negative urine electrolytes prerenal mild proteinuria CPK normal renal ultrasound c/w CKD follow trend of repeat labs and UOP (2) Chronic kidney disease, stage 3: Code(s): N18.3 - Chronic kidney disease, stage 3 (moderate) Status: Chronic Assessment and Plan: baseline creatinine seems to run ~ 1.4 - 1.7mg/dl this would cause him to fluctuate between CKD stage 3A and stage 3B likely secondary to hypertension, diabetes, severe vascular disease (CAD + PAD + hyperlipidemia), and age (3) Hypotension: Code(s): I95.9 - Hypotension, unspecified Status: Acute Assessment and Plan: as noted on 03/07 with transfer to ICU CTA C/A/P demonstrating large pericardial effusion, possible exudative and L>R pleural effusion limited bedside echo showing pericardial effusion but does not appear to be significant and no tamponade physiology etiology presumed to be medication related: antihypertensives pain medications improvement noted with IVFs initially on/off lexx-synephrine - currently off UA suggest UTI - culture with Proteus on antibiotics monitor hemodynamics (4) Hyperkalemia: Code(s): E87.5 - Hyperkalemia Status: Acute Assessment and Plan: better presumably due to #1 on lokelma - wean off follow repeat K+ levels (5) ST elevation (STEMI) myocardial infarction: Code(s): I21.3 - ST elevation (STEMI) myocardial infarction of unspecified site Status: Acute Assessment and Plan: admission EKG showed inferior lateral ST-elevation OK s/p cardiac cath with PTCA/PCI with KENYA x 1 to mid RCA which was 90% blocked no LV gram was performed due to renal dysfunction Cardiology following Echo results noted remains on DAPT and statin (6) Atrial fibrillation: Code(s): I48.91 - Unspecified atrial fibrillation Status: Acute Assessment and Plan: on amiodarone gtt on anticoagulation Cardiology following possible cardioversion today (7) Metabolic acidosis: Code(s): E87.20 - Acidosis, unspecified Status: Acute Assessment and Plan: better on oral sodium bicarbonate - wean as tolerated follow CO2 levels (8) Anemia: Code(s): D64.9 - Anemia, unspecified Status: Acute Assessment and Plan: due in part to CKD and acute illness follow trend of H/H start Epogen while hospitalized (9) Insulin dependent type 2 diabetes mellitus: Code(s): E11.9 - Type 2 diabetes mellitus without complications; 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 Subjective Date/time seen: 03/11/24 10:33 Interval history: Follow-up for acute kidney injruy/acute renal failure on chronic kidney disease. Continue to be on/off vasopressor therapy due to fluctuating hemodynamics/hypotension; reasonable urine output noted in the last 24 hours and renal function remains relatively stable; on supplemental oxygen due to ongoing complaints of shortness of breath; remains in afib despite amiodarone gtt; noted plans by Cardiology for attempted cardioversion today. Exam Narrative: General: elderly male in NAD but slightly confused Heart: normal S1 and S2; no rub Lungs: clear anteriorly,
[2024-03-11 11:31] LABS: Glucose Point of Care 146 mg/dl (65-105)
[2024-03-11] MEDS: MORPHINE SULFATE (*CRX) 2 MG/ML INJ IV PUSH ×2 (11:51→19:41)
--- NOTE | 2024-03-11 11:58 | PCPTNOTE ---
Patient awaiting cardioversion today. PT will continue to follow per plan of care.
--- NOTE | 2024-03-11 13:02 | WPDANESEPPF ---
Anes - Initial Pre Proc Eval Procedure: Operation Date: 03/04/24 11:30 Proposed Procedures p Left Heart Cath - Horacio Cleaning MD Operation Date: 03/11/24 13:00 Proposed Procedures p Electrical Cardioversion - Horacio Cleaning MD Date/Time: 03/11/24 13:02 Surgeon: Horacio Cleaning MD Pre Op Diagnosis: Inferolateral ST Elevation FL Patient Data Age: 63 Gender: M Height: 1.78 m Weight: 125 kg Last Vital Signs Temp 36.6 C 03/11/24 12:00 Pulse 113 H 03/11/24 12:23 Resp 16 03/11/24 12:00 BP 118/61 03/11/24 12:23 Pulse Ox 93 03/11/24 12:00 O2 Del Method Nasal Cannula 03/11/24 12:00 O2 Flow Rate 4 03/11/24 12:00 FiO2 28 03/07/24 13:36 Allergies Allergy/AdvReac Type Severity Reaction Status Date / Time amoxicillin Allergy Severe shortness Verified 01/27/21 13:10 of breath Penicillins Allergy Severe Anaphylactic Verified 01/27/21 13:10 Shock trimethoprim Allergy Intermediate Unknown Verified 01/27/21 13:10 cefuroxime Allergy Unknown Verified 08/04/22 16:29 cephalexin Allergy Unknown Verified 08/04/22 16:29 clindamycin Allergy Unknown Verified 08/04/22 16:29 gabapentin Allergy Unknown Verified 08/04/22 16:29 Home Medications Medication Instructions Recorded Confirmed Type cyanocobalamin (vitamin B-12) 1,000 mcg PO DAILY 11/08/19 03/04/24 History 2,500 mcg tablet insulin syr/ndl U100 half liz 0.3 #100 ea 12/12/19 03/04/24 Rx mL 31 gauge x 5/16 (BD Insulin Syringe Ultra-Fine (half unit)) insulin syringe-needle U-100 1/2 #90 ea 03/05/20 03/04/24 History mL 31 gauge x 15/64 nitroglycerin 0.4 mg sublingual 0.4 mg sublingual Q5M PRN Chest 03/05/20 03/04/24 History tablet Pain pen needle, diabetic 31 gauge x #30 ea 03/05/20 03/04/24 History 3/16 insulin glargine 100 unit/mL (3 See Rx Instructions .Route 03/13/20 03/04/24 Rx mL) subcutaneous pen (Basaglar .COMPLEX #15 mL KwikPen U-100 Insulin) sodium chloride 0.65 % nasal spray 2 spray intranasal Q4H PRN Nasal 03/17/20 03/04/24 History aerosol (Saline Nasal) Congestion polyethylene glycol 3350 17 gram 17 g PO QAM PRN Constipation 30 03/25/20 03/04/24 Rx oral powder packet (Miralax) days #30 ea blood-glucose meter #1 ea 04/23/20 03/04/24 Rx lisinopril 10 mg tablet See Rx Instructions .Route 10/26/21 03/04/24 Rx .COMPLEX #90 tabs aspirin 81 mg tablet,delayed 81 mg PO QAM #30 tabs 06/19/23 03/04/24 Rx release metoprolol tartrate 25 mg tablet 25 mg PO Q12HR #60 tabs 06/19/23 03/04/24 Rx orphenadrine citrate 100 mg 100 mg PO Q12H PRN spasms #14 tabs 07/09/23 03/04/24 Rx tablet,extended release Benadryl 50 mg PO Q6H PRN Itching 11/15/23 03/04/24 History GlycoLax 17 g PO DAILY PRN Constipation 11/15/23 03/04/24 History Senna Plus 1 tablet PO DAILY PRN Constipation 11/15/23 03/04/24 History bupropion HCl 100 mg tablet,12 hr 100 mg PO DAILY 11/15/23 03/04/24 History sustained-release clotrimazole 1 % topical cream 1 applic topical BID 11/15/23 03/04/24 History insulin lispro 100 unit/mL 17 unit subcut AC 11/15/23 03/04/24 History subcutaneous solution (Admelog U-100 Insulin lispro) magnesium oxide 400 mg PO DAILY 11/15/23 03/04/24 History melatonin 10 mg PO HS PRN Insomnia 11/15/23 03/04/24 History metoclopramide HCl 10 mg tablet 10 mg PO Q6H PRN Nausea 11/15/23 03/04/24 History pregabalin 150 mg capsule 150 mg PO TID 11/15/23 03/04/24 History tramadol 50 mg tablet 50 mg PO Q12H PRN Pain 11/15/23 03/04/24 History albuterol sulfate 90 mcg/actuation 2 puff inhalation Q4H PRN 03/04/24 03/04/24 History aerosol inhaler Shortness Of Breath Or Wheezing bisacodyl 10 mg rectal suppository 10 mg RECTAL DAILY PRN Constipation 03/04/24 03/04/24 History budesonide-formoterol HFA 160 2 puff inhalation Q12H 03/04/24 03/04/24 History mcg-4.5 mcg/actuation aerosol inhaler (Symbicort) cefuroxime axetil 500 mg tablet 500 mg PO BID 03/04/24 03/04/24 History cyclobenzaprine
--- NOTE | 2024-03-11 13:21 | P.PCNCC_ITS ---
Cardiac Cath Procedure Note Date of procedure:: 03/11/24 Performing physician:: Horacio Cleaning MD Indication:: persistent atrial fibrillation Brief clinical history:: this is a 63-year-old man who was hospitalized with chest pain and had ST segment elevation in the inferolateral leads. He underwent PCI with drug- eluting stent to the trunk of his circumflex. Previously deployed stents in the LAD and right coronary artery remained patent. He also has extensive peripheral vascular disease. As he is hospitalized recovering from this he has developed atrial fibrillation which has persisted despite intravenous amiodarone. He has been anticoagulated with heparin infusion. In this setting restoring sinus rhythm electrically has been recommend Procedure Procedure performed:: DC cardioversion Sedation/Medication given:: sedation per the Anesthesia Service Estimated blood loss:: no blood loss Procedure note:: patient was hospitalized in ICU room 7. The anesthesia team provided conscious sedation for this procedure using propofol. Please see their separately dictated note for these details. When the patient was well sedated he was then DC cardioverted in a synchronized fashion with 200 joules x1 shock restoring sinus rhythm with heart rate of 62. Findings:: As above Conclusion:: successful uncomplicated DC cardioversion terminating atrial fib, restoring sinus rhythm using 200 joules x1 shock Horacio Cleaning MD [facility]
[2024-03-11] MEDS: ASPIRIN 81 MG ENTERIC TABLET PO (13:53)
[2024-03-11] MEDS: TAMSULOSIN HCL 0.4 MG CAPSULE PO (13:53)
[2024-03-11] MEDS: buPROPion HCL SR (12HR) 100 MG TABCR PO (13:53)
[2024-03-11] MEDS: PREGABALIN (*CRX) 75 MG CAPSULE 150 MG PO ×2 (13:53→16:58)
[2024-03-11] MEDS: ROSUVASTATIN 10 MG TABLET 20 MG PO (13:53)
[2024-03-11] MEDS: CLOPIDOGREL BISULFATE 75 MG TABLET PO (13:53)
[2024-03-11] MEDS: PANTOPRAZOLE 40 MG TABLET PO (13:54)
[2024-03-11] MEDS: SODIUM BICARBONATE TAB 650 MG TABLET PO ×2 (13:54→16:58)
[2024-03-11] MEDS: guaiFENesin 12 HR 600 MG TABCR 1200 MG PO ×2 (13:54→20:29)
[2024-03-11] MEDS: AMIODARONE HCL 200 MG TABLET 400 MG PO ×2 (13:54→16:58)
[2024-03-11] MEDS: MICONAZOLE NITRATE 2% CREAM 30 GM TUBE 1 APPLIC TOPICAL ×2 (13:55→20:37)
[2024-03-11 15:48] LABS: Glucose Point of Care 155 mg/dl (65-105)
--- NOTE | 2024-03-11 16:10 | PM.IMPN ---
Progress Note: A&P Assessment and Plan (1) Hypotension: Code(s): I95.9 - Hypotension, unspecified Status: Acute Assessment and Plan: Patient developed low BP on 03/07 and transferred to ICU due to hypotension. CTA Ch/A/P 03/07 showing large pericardial effusion, possible exudative and L>R pleural effusion. Bedside limited echo 03/07 showing pericardial effusion but does not appear to be significant and no tamponade physiology Suspected HoTN related to multiple medications: metoprolol, amlodipine, Imdur and also received Dilaudid. Meds held and patient was given IV fluids leading to improvement in blood pressure but then went into AFib with RVR leading to drop in blood pressure again. Patient was started on Khanh-Synephrine infusion along with amiodarone infusion for rate control. Khanh was weaned off 03/11 UCx growing Proteus BCx NGTD WBC better. Continue aztreonam. Monitor WBC and BP. (2) ST elevation (STEMI) myocardial infarction: Code(s): I21.3 - ST elevation (STEMI) myocardial infarction of unspecified site Status: Acute Assessment and Plan: Patient presents with neck pain and found to have inferior and anterolateral ST-elevation ID. Troponin normal x3. STEMI alert and patient went for LHC: status post PTCA/PCI with KENYA x1 to mid RCA which was 90% blocked and was the culprit vessel. No LV gram was performed due to acute on chronic kidney disease Echo showing EF 65-70%, mild LV wall thickness, Grade I diastolic dysfunction, small pericardial effusion. Patient was started on aspirin, Brilinta, rosuvastatin, metoprolol, Imdur; Imdur and metoprolol now on hold. Resume when able (3) Acute renal failure superimposed on stage 3 chronic kidney disease: Code(s): N17.9 - Acute kidney failure, unspecified; N18.30 - Chronic kidney disease, stage 3 unspecified Status: Acute Assessment and Plan: Acute on CKD with Cr normally between 1.30-1.70. Admission Creatinine was 2.50 Patient received post cath IV fluids. Cr stable in the 1.8-2 range. 03/07 episode of hypotension and patient also received contrast for CTA. Patient was given [address] and also given albumin Creatinine stable today to 3.1. Metabolic nongap acidosis. Potassium normal. UPO 900 yesterday Nephrology is following Sodium bicarbonate for metabolic acidosis and this is improved Monitor urine output, electrolytes and creatinine (4) Atrial fibrillation: Code(s): I48.91 - Unspecified atrial fibrillation Status: Acute Assessment and Plan: Patient developed AFib with RVR 03/06 and converted to NSR with Amiodarone. No prior hx of AFib listed He was on beta-mike 03/07 but held due to hypotension. Eliquis added but held due to potential of bleeding He is on aspirin and Plavix Amiodarone infusion was restarted due to AFib with RVR Heparin drip added DC Cardioversion today with sabianism of sinus rhythm using 200J x 1 Monitor on tele, continue Amio (5) UTI (urinary tract infection): Code(s): N39.0 - Urinary tract infection, site not specified Status: Acute Assessment and Plan: UA suggestive of UTI Patient on multiple allergies hence started on aztreonam IV UCx growing Proteus BCx NGTD Contnue abx, Follow (6) Insulin dependent type 2 diabetes mellitus: Code(s): E11.9 - Type 2 diabetes mellitus without complications; 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 The patient's blood glucose was reviewed on 03/11 Glucose better controlled Continue AccuCheks covering with sliding scale. Hypoglycemia protocol available as needed. Continue to monitor for now (7) Anemia: Code(s): D64.9 - Anemia, unspecified Status: Acute Assessment and Plan: Chronic anemia wiht Hgb mostly in the 8-9 range Hgb has drifted down to 6.8 on 03/09 and he receive 1U PRBCs. Hgb 7 range. No evidence of ac
[2024-03-11] MEDS: INSULIN ASPART (*BKC) 100 UNITS/ML 17 UNITS SUB-Q (16:58)
[2024-03-11] MEDS: HEPARIN SOD/D5W 100 UNITS/ML 25,000 UNITS/250 ML BAG 13 UNITS IV CONT (18:49)
[2024-03-11 19:55] LABS: Glucose Point of Care 105 mg/dl (65-105)
[2024-03-11] MEDS: MELATONIN 5 MG TABLET 10 MG PO (20:30)
[2024-03-11] MEDS: INSULIN GLARGINE (*BKC) 100 UNITS/ML 40 UNITS SUB-Q (20:32)
[2024-03-11] MEDS: HYDROcodone/acetaminophen (*CRX) 5-325 MG TABLET 1 TAB PO (23:41)
[2024-03-12] VITALS (29 sets, daily range): BP systolic 100–148; BP diastolic 41–105; PULSE 54–70; RESP 12–22; TEMP 35.9–36.8; O2SAT 91–98
[2024-03-12] MEDS: ALBUTEROL SULFATE (*SP) AEROSOL 1 PUFF 2 PUFF INHALATION ×4 (00:51→18:44)
[2024-03-12] MEDS: AZTREONAM 1 GM in SODIUM CHLORIDE 0.9% IV 50 ML 100 ML IVPB ×3 (02:59→18:15)
[2024-03-12] MEDS: MORPHINE SULFATE (*CRX) 2 MG/ML INJ IV PUSH ×3 (05:18→20:48)
[2024-03-12] MEDS: CENTRAL LINE FLUSH 10 ML IV PUSH ×3 (05:19→20:35)
[2024-03-12 05:21] LABS: Hematocrit 23.7 % (42.0-52.0); Hemoglobin 7.3 g/dL (14.0-18.0); Mean Corpuscular HGB Conc 30.8 g/dl (32-36); Mean Platelet Volume 11.9 fl (7.4-10.4); Platelet Count Result 225 k/mm3 (150-375); Red Blood Count 2.52 M/mm3 (4.6-6.20); Red Cell Distribution Width 17.2 % (11.5-14.5); White Blood Count 13.4 K/mm3 (4.5-10.0)
[2024-03-12 05:30] LABS: Alanine Aminotransferase 51 U/L (6-50); Albumin Level 3.3 g/dL (3.5-5.1); Alkaline Phosphatase 163 U/L (38-126); Anion Gap 8 mmol/L (4-12); Aspartate Amino Transferase 37 U/L (17-59); Bilirubin,Total 0.5 mg/dL (0.2-1.3); Blood Urea Nitrogen 69 mg/dL (9-20); Calcium 8.5 mg/dL (8.4-10.2); Carbon Dioxide 23 mmol/L (22-30); Chloride 104 mmol/L (98-107); Estimated CRCL calculation 29 ml/min; Estimated Glomerular Filt Rate 20; Glucose 100 mg/dL (65-110); Magnesium 2.7 mg/dL (1.6-2.3); Potassium 4.5 mmol/L (3.4-5.0); Sodium 135 mmol/L (137-145)
[2024-03-12 05:35] LABS: Partial Thromboplastin Time 84.1 Seconds (22.3-36.8)
[2024-03-12 07:48] LABS: Glucose Point of Care 111 mg/dl (65-105)
[2024-03-12] MEDS: PREGABALIN (*CRX) 75 MG CAPSULE 150 MG PO ×3 (07:54→16:47)
[2024-03-12] MEDS: ROSUVASTATIN 10 MG TABLET 20 MG PO (07:54)
[2024-03-12] MEDS: PANTOPRAZOLE 40 MG TABLET PO (07:54)
[2024-03-12] MEDS: buPROPion HCL SR (12HR) 100 MG TABCR PO (07:54)
[2024-03-12] MEDS: TAMSULOSIN HCL 0.4 MG CAPSULE PO (07:55)
[2024-03-12] MEDS: guaiFENesin 12 HR 600 MG TABCR 1200 MG PO ×2 (07:55→20:30)
[2024-03-12] MEDS: AMIODARONE HCL 200 MG TABLET 400 MG PO ×2 (07:55→16:46)
[2024-03-12] MEDS: ASPIRIN 81 MG ENTERIC TABLET PO (07:55)
[2024-03-12] MEDS: CYCLOBENZAPRINE HCL 10 MG TABLET PO (07:55)
[2024-03-12] MEDS: SODIUM BICARBONATE TAB 650 MG TABLET PO (07:56)
[2024-03-12] MEDS: CLOPIDOGREL BISULFATE 75 MG TABLET PO (07:56)
[2024-03-12] MEDS: MICONAZOLE NITRATE 2% CREAM 30 GM TUBE 1 APPLIC TOPICAL (07:56)
[2024-03-12] MEDS: INSULIN GLARGINE (*BKC) 100 UNITS/ML 40 UNITS SUB-Q ×2 (07:57→20:34)
[2024-03-12] MEDS: INSULIN ASPART (*BKC) 100 UNITS/ML 17 UNITS SUB-Q ×2 (07:58→11:56)
[2024-03-12] MEDS: AMIODARONE 360 MG/D5W 200 ML 360 MG/200 ML BAG 16.67 MG IV CONT (07:58)
[2024-03-12] MEDS: FLUTICASONE/SALMETEROL 115-21 MCG INHALER 1 PUFF 2 PUFF INHALATION ×2 (08:42→18:45)
--- NOTE | 2024-03-12 08:56 | WPDINTPN ---
Progress Note: A&P Assessment and Plan (1) Hypotension: Code(s): I95.9 - Hypotension, unspecified Status: Acute Assessment and Plan: 03/07 transferred to ICU due to hypotension. -Bedside limited echocardiogram was done by Dr. Baker with Cardiology and the pericardial effusion does not appear to be significant with no tamponade physiology. CTA was ordered by Cardiology and was negative for any retroperitoneal hemorrhage. Hemoglobin also did not show any significant drop -Hypotension likely secondary to secondary to multiple medications as patient is on metoprolol, amlodipine Imdur and also received Dilaudid. Which were on hold and patient was given IV fluids leading to improvement in blood pressure -03/07: Later in the evening patient went into AFib with RVR leading to drop in blood pressure again. Patient was started on Khanh-Synephrine infusion along with amiodarone infusion for rate control. -His WBC and lactate was elevated and UA suggestive of UTI although his procalcitonin was low -Patient was started on aztreonam due to multiple allergies for UTI. Urine cultures growing Proteus -Blood cultures have been negative -patient has been off Khanh-Synephrine since early 03/11 (2) ST elevation (STEMI) myocardial infarction: Code(s): I21.3 - ST elevation (STEMI) myocardial infarction of unspecified site Status: Acute Assessment and Plan: Inferior lateral ST-elevation [place] status post PTCA/PCI with KENYA x1 to mid RCA which was 90% blocked and was the culprit vessel. -no LV gram was performed due to acute on chronic kidney disease -patient was started on aspirin, Brilinta, rosuvastatin. -metoprolol and Imdur on hold due to hypotension Echocardiogram Summary ? 1. Technically difficult study with limited views. ? 2. Left ventricular chamber dimension is normal. ? 3. Left ventricular systolic function is normal, estimated at 65-70%. ? 4. There is mildly increased left ventricular wall thickness. ? 5. The left ventricular diastolic function is grade I diastolic dysfunction. ? 6. Right ventricular systolic function is normal. ? 7. There is small circumferential pericardial effusion. ? 8. There is no significant valvular disease appreciated on this study. (3) Acute renal failure superimposed on stage 3 chronic kidney disease: Code(s): N17.9 - Acute kidney failure, unspecified; N18.30 - Chronic kidney disease, stage 3 unspecified Status: Acute Assessment and Plan: Acute on chronic renal disease -creatinine on admission is 2.50 (normal creatinine is between 1.30-1.70) -patient receiving post catheterization IV fluids and creatinine is improved to 2.0 and and then levels leveled 03/07 episode of hypotension and patient also received contrast for CTA ordered by Cardiology to rule out any retroperitoneal hemorrhage after initiation of Eliquis and drop in blood pressure 03/08 creatinine increased 2.5. Patient was given 2 L of fluid bolus yesterday post CT and also is getting 500 mL of albumin 03/11 creatinine 3.1 Renal ultrasound -Bilateral cortical atrophy. Moderate right renal atrophy. Renal sinus lipomatosis. Small right pleural effusion. 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
--- NOTE | 2024-03-12 09:22 | PM.PNNEP ---
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(?) cannot r/o an element of CKD progression second insult likely due to fluctuating hypotension/hemodynamic instability fluctuating H/H Afib with RVR contrast (cardiac cath + CT scan) UTI evaluation to date noted: urine eosinophil negative urine electrolytes prerenal mild proteinuria CPK normal renal ultrasound c/w CKD follow trend of repeat labs and UOP (2) Chronic kidney disease, stage 3: Code(s): N18.3 - Chronic kidney disease, stage 3 (moderate) Status: Chronic Assessment and Plan: baseline creatinine seems to run ~ 1.4 - 1.7mg/dl this would cause him to fluctuate between CKD stage 3A and stage 3B likely secondary to hypertension, diabetes, severe vascular disease (CAD + PAD + hyperlipidemia), and age (3) Hypotension: Code(s): I95.9 - Hypotension, unspecified Status: Acute Assessment and Plan: better as noted on 03/07 with transfer to ICU CTA C/A/P demonstrating large pericardial effusion, possible exudative and L>R pleural effusion limited bedside echo showing pericardial effusion but does not appear to be significant and no tamponade physiology etiology presumed to be medication related: antihypertensives pain medications improvement noted with IVFs initially on/off lexx-synephrine - currently off UA suggest UTI - culture with Proteus on antibiotics monitor hemodynamics (4) Hyperkalemia: Code(s): E87.5 - Hyperkalemia Status: Acute Assessment and Plan: better presumably due to #1 on lokelma - wean off follow repeat K+ levels (5) ST elevation (STEMI) myocardial infarction: Code(s): I21.3 - ST elevation (STEMI) myocardial infarction of unspecified site Status: Acute Assessment and Plan: admission EKG showed inferior lateral ST-elevation [place] s/p cardiac cath with PTCA/PCI with KENYA x 1 to mid RCA which was 90% blocked no LV gram was performed due to renal dysfunction Cardiology following Echo results noted remains on DAPT and statin (6) Atrial fibrillation: Code(s): I48.91 - Unspecified atrial fibrillation Status: Acute Assessment and Plan: on amiodarone gtt on anticoagulation Cardiology following possible cardioversion today (7) Metabolic acidosis: Code(s): E87.20 - Acidosis, unspecified Status: Acute Assessment and Plan: better on oral sodium bicarbonate - wean as tolerated follow CO2 levels (8) Anemia: Code(s): D64.9 - Anemia, unspecified Status: Acute Assessment and Plan: due in part to CKD and acute illness follow trend of H/H start Epogen while hospitalized (9) Insulin dependent type 2 diabetes mellitus: Code(s): E11.9 - Type 2 diabetes mellitus without complications; 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 Subjective Date/time seen: 03/12/24 09:22 Interval history: Follow-up for acute kidney injruy/acute renal failure on chronic kidney disease. S/P cardioversion yesterday with return to normal sinus rhythm; off amiodarone gtt and heparin gtt off due to worsening anemia; stable hemodynamics noted without the need for vasopressor therapy; continues to make reasonable urine output; major complaint is that of shortness of breath and bladder spasms (that he thinks is due to hemphill catheter. Exam Narrative: General: elderly male in NAD Heart: normal S1 and S2; no rub Lungs: clear anteriorly, decreased at bases Abdomen: soft, nontender, nondis
--- NOTE | 2024-03-12 09:22 | P.PNNP_ITS ---
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 * prerenal factors(?) * cannot r/o an element of CKD progression * second insult likely due to * fluctuating hypotension/hemodynamic instability * fluctuating H/H * Afib with RVR * contrast (cardiac cath + CT scan) * UTI * evaluation to date noted: * urine eosinophil negative * urine electrolytes prerenal * mild proteinuria * CPK normal * renal ultrasound c/w CKD * follow trend of repeat labs and UOP (2) Chronic kidney disease, stage 3: Code(s): N18.3 - Chronic kidney disease, stage 3 (moderate) Status: Chronic Assessment and Plan: * baseline creatinine seems to run ~ 1.4 - 1.7mg/dl * this would cause him to fluctuate between CKD stage 3A and stage 3B * likely secondary to hypertension, diabetes, severe vascular disease (CAD + PAD + hyperlipidemia), and age (3) Hypotension: Code(s): I95.9 - Hypotension, unspecified Status: Acute Assessment and Plan: * better * as noted on 03/07 with transfer to ICU * CTA C/A/P demonstrating large pericardial effusion, possible exudative and L>R pleural effusion * limited bedside echo showing pericardial effusion but does not appear to be significant and no tamponade physiology * etiology presumed to be medication related: * antihypertensives * pain medications * improvement noted with IVFs initially * on/off lexx-synephrine - currently off * UA suggest UTI - culture with Proteus * on antibiotics * monitor hemodynamics (4) Hyperkalemia: Code(s): E87.5 - Hyperkalemia Status: Acute Assessment and Plan: * better * presumably due to #1 * on lokelma - wean off * follow repeat K+ levels (5) ST elevation (STEMI) myocardial infarction: Code(s): I21.3 - ST elevation (STEMI) myocardial infarction of unspecified site Status: Acute Assessment and Plan: * admission EKG showed inferior lateral ST-elevation [place] * s/p cardiac cath with PTCA/PCI with KENYA x 1 to mid RCA which was 90% blocked * no LV gram was performed due to renal dysfunction * Cardiology following * Echo results noted * remains on DAPT and statin (6) Atrial fibrillation: Code(s): I48.91 - Unspecified atrial fibrillation Status: Acute Assessment and Plan: * on amiodarone gtt * on anticoagulation * Cardiology following * possible cardioversion today (7) Metabolic acidosis: Code(s): E87.20 - Acidosis, unspecified Status: Acute Assessment and Plan: * better * on oral sodium bicarbonate - wean as tolerated * follow CO2 levels (8) Anemia: Code(s): D64.9 - Anemia, unspecified Status: Acute Assessment and Plan: * due in part to CKD and acute illness * follow trend of H/H * start Epogen while hospitalized (9) Insulin dependent type 2 diabetes mellitus: Code(s): E11.9 - Type 2 diabetes mellitus without complications; 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 Subjective Date/time seen: 03/12/24 09:22 Interval history: Follow-up for acute
[2024-03-12 09:26] LABS: Glucose Point of Care 151 mg/dl (65-105)
--- NOTE | 2024-03-12 09:30 | PM.PNCARD ---
Progress Note: A&P Assessment and Plan (1) Atrial fibrillation: Code(s): I48.91 - Unspecified atrial fibrillation Status: Acute (2) ST elevation (STEMI) myocardial infarction: Code(s): I21.3 - ST elevation (STEMI) myocardial infarction of unspecified site Status: Acute Plan 63-year-old man with: Very difficult complex situation with severe did multivessel coronary disease, severe peripheral vascular disease with previous right lower extremity amputation and initial present ST elevation [place]. following the emergency PCI of the circumflex his hospitalization has been complicated by atrial fibrillation, worsening renal function and need for DC cardioversion to restore sinus rhythm yesterday. His anemia is worse today are recognizing the fact that he is just cardioverted yesterday the intravenous heparin has to be stopped recognizing the risks of that. Dual anti-platelet therapy has to be continued. Prognosis for recovery from all of this is guarded at this time Horacio Cleaning MD [facility] Subjective Date/time seen: Date of service: 03/12/24 09:30 Interval history: Follow-up visit in this 63-year-old man with diffuse coronary and peripheral arterial disease. Presented to the hospital on 03/04/2024 with some neck pain and altered mental status. STEMI was declared because of inferolateral ST segment elevation. High-grade stenosis in the trunk of the circumflex was identified and treated with PCI as detailed in the catheterization lab report. Previous LAD and right coronary stents were patent. Patient remains hospitalized was having difficulty with recurrence of atrial fibrillation last evening. This was a accompanied by hypotension requiring transfer back to the ICU. Likely this is a combination of his atrial fib other medications that were on board for hypertension. He is receiving intravenous amiodarone at this time and persisting atrial fib with heart rate 100-110. He is resting relatively comfortably upon awakening he offers no specific complaints. Date of service 03/09/2024: He was not complaining of chest pain earlier today is reported but not complaints of significant reproducible chest pain worse with deep breathing, movement, coughing or any palpation. Morphine helps. BP variable, Khanh-Synephrine held secondary to hypertension. Date of service 03/10/2024: Patient is sleepy but arousable. Feels better today. No chest pain. Breathing stable. He is off Khanh-Synephrine. BP much more stable. Remains tachycardic in AFib with RVR heart rates 120s on average. Date of service 03/11/2024: The patient is hemodynamically stable is oxygenating adequately on nasal cannula O2 but is complaining that he is still short of breath with modest activity. Likely discussion with the patient today about the fact that he is persisting in atrial fibrillation now for the last 4 days despite intravenous amiodarone. Recommend attempting DC cardioversion. Because of his medical complexity and obesity will need to coordinate this with anesthesia for airway protection. Will try to get this scheduled for today Date of service 03/12/2024: No cardiovascular complaints today. Remaining in sinus rhythm. Intravenous amiodarone stopped today. Remains on p.o. amiodarone. Hemoglobin drops again to breathe over 88, intravenous heparin. Maintains on dual anti-platelet therapy. Patient complains of dysuria would like his Ayoub catheter removed if possible Exam Narrative: General: Well developed, alert and oriented x3. No apparent distress, comfortable, pleasant, and cooperative. Head: atraumatic, normocephalic Eyes: EOM intact, sclerae anicteric, conjunctivae unremarkable Ears/Nose: external inspection of ears and nose were grossly normal Mouth/Throat: oral mucosa pink and moist Neck: supple, normal range of motion, no jugular venous distention or carotid bruits, thyroid nonpalpable, trachea midline. Cardiac:
[2024-03-12 11:36] LABS: Glucose Point of Care 138 mg/dl (65-105)
[2024-03-12] MEDS: HYDROcodone/acetaminophen (*CRX) 5-325 MG TABLET 1 TAB PO (11:55)
--- NOTE | 2024-03-12 12:48 | PM.IMPN ---
Progress Note: A&P Assessment and Plan (1) Hypotension: Code(s): I95.9 - Hypotension, unspecified Status: Acute Assessment and Plan: Patient developed low BP on 03/07 and transferred to ICU due to hypotension. CTA Ch/A/P 03/07 showing large pericardial effusion, possible exudative and L>R pleural effusion. Bedside limited echo 03/07 showing pericardial effusion but does not appear to be significant and no tamponade physiology Suspected HoTN related to multiple medications: metoprolol, amlodipine, Imdur and also received Dilaudid. Meds held and patient was given IV fluids leading to improvement in blood pressure but then went into AFib with RVR leading to drop in blood pressure again. Patient was started on Khanh-Synephrine infusion along with amiodarone infusion for rate control. Consider also related to infection Khanh was weaned off 03/11. UCx growing Proteus BCx NGTD WBC better. Continue aztreonam. Monitor WBC and BP. (2) Atrial fibrillation: Code(s): I48.91 - Unspecified atrial fibrillation Status: Acute Assessment and Plan: Patient developed AFib with RVR 03/06 and converted to NSR with Amiodarone. No prior hx of AFib listed He was on beta-mike 03/07 but held due to hypotension. Eliquis added but held due to potential of bleeding He is on aspirin and Plavix Amiodarone infusion was restarted due to AFib with RVR Heparin drip added He underwent DC Cardioversion 03/11 with mosque of sinus rhythm using 200J x 1 Tele showing he is maintaining NSR. Amiodarone drip stopped but he remains on oral Amiodarone Heparin drip stopped Monitor on tele, continue Amiodarone (3) ST elevation (STEMI) myocardial infarction: Code(s): I21.3 - ST elevation (STEMI) myocardial infarction of unspecified site Status: Acute Assessment and Plan: Patient presents with neck pain and found to have inferior and anterolateral ST-elevation [place]. Troponin normal x3. STEMI alert and patient went for LHC: s/p PTCA/PCI with KENYA x1 to mid RCA which was 90% blocked and was the culprit vessel. No LV gram was performed due to acute on chronic kidney disease Echo showing EF 65-70%, mild LV wall thickness, Grade I diastolic dysfunction, small pericardial effusion. Patient was started on aspirin, Brilinta, rosuvastatin, metoprolol, Imdur; Imdur and metoprolol now on hold. Resume when able. (4) Acute renal failure superimposed on stage 3 chronic kidney disease: Code(s): N17.9 - Acute kidney failure, unspecified; N18.30 - Chronic kidney disease, stage 3 unspecified Status: Acute Assessment and Plan: Acute on CKD with Cr normally between 1.30-1.70. Admission Creatinine was 2.50 Patient received post cath IV fluids. Cr was stable in the 1.8-2 range. 03/07 episode of HoTN and patient also received contrast for CTA. Patient was given [address] and also given albumin Creatinine stable today to 3.2. Metabolic nongap acidosis. Potassium normal. 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 The patient's blood glucose was reviewed on 03/12 Glucose better controlled Continue AccuCheks covering with sliding scale. Hypoglycemia protocol available as needed. Continue to monitor for now (7) Anemia: Code(s): D64.9 - Anemia, unspecified Status: Acute
[2024-03-12 16:12] LABS: Glucose Point of Care 58 mg/dl (65-105)
[2024-03-12 16:28] LABS: Glucose Point of Care 59 mg/dl (65-105)
[2024-03-12] MEDS: DEXTROSE 50% 25 GM/50 ML SYRINGE IV PUSH (17:13)
[2024-03-12 17:26] LABS: Glucose Point of Care 53 mg/dl (65-105)
[2024-03-12 17:26] LABS: Glucose Point of Care 133 mg/dl (65-105)
--- NOTE | 2024-03-12 17:45 | PC.NURSE ---
This patient, Noel Rodriguez, was transferred to [facility] on 03/12/24 at 1745. Personal belongings sent with patient. Report given to Yenni Miller. Appropriate documentation sent with patient.
[2024-03-12 18:03] LABS: Glucose Point of Care 130 mg/dl (65-105)
[2024-03-12 20:13] LABS: Glucose Point of Care 131 mg/dl (65-105)
[2024-03-12] MEDS: MELATONIN 5 MG TABLET 10 MG PO (20:34)
[2024-03-12] MEDS: diphenhydrAMINE HCl CAP 25 MG CAPSULE 50 MG PO (20:34)
[2024-03-12 22:09] LABS: Glucose Point of Care 168 mg/dl (65-105)
[2024-03-13] VITALS (20 sets, daily range): BP systolic 137–175; BP diastolic 47–87; PULSE 59–78; RESP 20–26; TEMP 36–36.5; O2SAT 91–97
[2024-03-13 01:31] LABS: Glucose Point of Care 105 mg/dl (65-105)
[2024-03-13] MEDS: AZTREONAM 1 GM in SODIUM CHLORIDE 0.9% IV 50 ML 100 ML IVPB ×3 (03:18→21:59)
[2024-03-13 05:58] LABS: Glucose Point of Care 95 mg/dl (65-105)
[2024-03-13] MEDS: CENTRAL LINE FLUSH 10 ML IV PUSH ×2 (07:01→21:59)
[2024-03-13 07:10] LABS: Basophils Percent Auto 0.1 % (0.2-1.2); Eosinophils Percent Auto 0.3 % (0-4.4); Hematocrit 25.7 % (42.0-52.0); Hemoglobin 7.9 g/dL (14.0-18.0); Immature Granulocyte Absolute 0.23 K/mm3 (0.00-0.031); Immature Granulocyte Percent A 1.7 % (0-0.5); Mean Corpuscular HGB Conc 30.7 g/dl (32-36); Mean Corpuscular Hemoglobin 29.2 pg (26-34); Mean Corpuscular Volume 94.8 fl (80-100); Monocytes Absolute Auto 0.7 K/mm3 (0.1-0.6); Monocytes Percent Auto 5.4 % (2.6-8.5); Neutrophils Absolute Auto 11.7 K/mm3 (1.3-6.7); Neutrophils Percent Auto 84.5 % (45.5-73.1); Nucleated Red Blood Cells Perc 0.2 % (0.0-0.2); Platelet Count Result 260 k/mm3 (150-375); Red Blood Count 2.71 M/mm3 (4.6-6.20); White Blood Count 13.8 K/mm3 (4.5-10.0)
[2024-03-13 07:22] LABS: Partial Thromboplastin Time 36.6 Seconds (22.3-36.8)
[2024-03-13] MEDS: ALBUTEROL SULFATE (*SP) AEROSOL 1 PUFF 2 PUFF INHALATION (07:22)
[2024-03-13 07:24] LABS: Alanine Aminotransferase 49 U/L (6-50); Albumin Level 3.5 g/dL (3.5-5.1); Alkaline Phosphatase 166 U/L (38-126); Anion Gap 10 mmol/L (4-12); Aspartate Amino Transferase 27 U/L (17-59); Bilirubin,Total 0.5 mg/dL (0.2-1.3); Blood Urea Nitrogen 80 mg/dL (9-20); Calcium 8.5 mg/dL (8.4-10.2); Carbon Dioxide 19 mmol/L (22-30); Chloride 105 mmol/L (98-107); Estimated CRCL calculation 29 ml/min; Estimated Glomerular Filt Rate 20; Glucose 83 mg/dL (65-110); Magnesium 2.8 mg/dL (1.6-2.3); Phosphorus 7.8 mg/dL (2.5-4.5); Potassium 4.6 mmol/L (3.4-5.0); Sodium 134 mmol/L (137-145)
[2024-03-13] MEDS: FLUTICASONE/SALMETEROL 115-21 MCG INHALER 1 PUFF 2 PUFF INHALATION ×2 (07:25→20:34)
[2024-03-13 08:13] LABS: Glucose Point of Care 82 mg/dl (65-105)
[2024-03-13] MEDS: CLOPIDOGREL BISULFATE 75 MG TABLET PO (08:37)
[2024-03-13] MEDS: TAMSULOSIN HCL 0.4 MG CAPSULE PO (08:37)
[2024-03-13] MEDS: AMIODARONE HCL 200 MG TABLET 400 MG PO (08:37)
[2024-03-13] MEDS: ROSUVASTATIN 10 MG TABLET 20 MG PO (08:37)
[2024-03-13] MEDS: PREGABALIN (*CRX) 75 MG CAPSULE 150 MG PO ×2 (08:37→17:06)
[2024-03-13] MEDS: ASPIRIN 81 MG ENTERIC TABLET PO (08:37)
[2024-03-13] MEDS: HYDROcodone/acetaminophen (*CRX) 5-325 MG TABLET 1 TAB PO ×2 (08:38→21:08)
[2024-03-13] MEDS: buPROPion HCL SR (12HR) 100 MG TABCR PO (08:38)
[2024-03-13] MEDS: SODIUM BICARBONATE TAB 650 MG TABLET PO (08:38)
[2024-03-13] MEDS: guaiFENesin 12 HR 600 MG TABCR 1200 MG PO ×2 (08:38→21:02)
[2024-03-13] MEDS: PANTOPRAZOLE 40 MG TABLET PO (08:38)
[2024-03-13] MEDS: MICONAZOLE NITRATE 2% CREAM 30 GM TUBE 1 APPLIC TOPICAL ×2 (08:39→21:02)
--- NOTE | 2024-03-13 09:58 | PM.PNCARD ---
Progress Note: A&P Assessment and Plan (1) Atrial fibrillation: Code(s): I48.91 - Unspecified atrial fibrillation Status: Acute (2) ST elevation (STEMI) myocardial infarction: Code(s): I21.3 - ST elevation (STEMI) myocardial infarction of unspecified site Status: Acute Plan 63-year-old man with: Rather complex situation with diffuse coronary and peripheral vascular disease as mentioned in notes above. Presented to the hospital initially here with some chest pain and inferolateral ST elevation. Underwent emergency PCI of the mid circumflex which was subtotally occluded. Previous stents in the LAD and right coronary arteries were nicely patent. Left ventricular systolic function remains preserved by subsequent echo. During this hospitalization he has had problematic atrial fibrillation as well as worsening of chronic kidney disease. He is maintaining sinus rhythm with amiodarone. Will start reducing the dosage. He is currently receiving 800 mg daily which is much higher of course that is maintenance dose will hopefully be. Systemic anticoagulation of course is indicated but had to be stopped because of significant anemia he requires dual anti-platelet therapy and he cannot tolerate triple therapy. Will reduce amiodarone to 400 mg daily as of now with the intention of reducing to 200 mg eventually. Long-term prognosis is clearly guarded Horacio Cleaning MD [facility] Subjective Date/time seen: Date of service: 03/13/24 09:58 Interval history: Follow-up visit in this 63-year-old man with diffuse coronary and peripheral arterial disease. Presented to the hospital on 03/04/2024 with some neck pain and altered mental status. STEMI was declared because of inferolateral ST segment elevation. High-grade stenosis in the trunk of the circumflex was identified and treated with PCI as detailed in the catheterization lab report. Previous LAD and right coronary stents were patent. Patient remains hospitalized was having difficulty with recurrence of atrial fibrillation last evening. This was a accompanied by hypotension requiring transfer back to the ICU. Likely this is a combination of his atrial fib other medications that were on board for hypertension. He is receiving intravenous amiodarone at this time and persisting atrial fib with heart rate 100-110. He is resting relatively comfortably upon awakening he offers no specific complaints. Date of service 03/09/2024: He was not complaining of chest pain earlier today is reported but not complaints of significant reproducible chest pain worse with deep breathing, movement, coughing or any palpation. Morphine helps. BP variable, Khanh-Synephrine held secondary to hypertension. Date of service 03/10/2024: Patient is sleepy but arousable. Feels better today. No chest pain. Breathing stable. He is off Khanh-Synephrine. BP much more stable. Remains tachycardic in AFib with RVR heart rates 120s on average. Date of service 03/11/2024: The patient is hemodynamically stable is oxygenating adequately on nasal cannula O2 but is complaining that he is still short of breath with modest activity. Likely discussion with the patient today about the fact that he is persisting in atrial fibrillation now for the last 4 days despite intravenous amiodarone. Recommend attempting DC cardioversion. Because of his medical complexity and obesity will need to coordinate this with anesthesia for airway protection. Will try to get this scheduled for today Date of service 03/12/2024: No cardiovascular complaints today. Remaining in sinus rhythm. Intravenous amiodarone stopped today. Remains on p.o. amiodarone. Hemoglobin drops again to breathe over 88, intravenous heparin. Maintains on dual anti-platelet therapy. Patient complains of dysuria would like his Ayoub catheter removed if possible Date of service 03/13/2024: The patient does look more comfortable today and for the last couple of
[2024-03-13] MEDS: EPOETIN ALFA-EPBX 10,000 UNITS/ML VIAL 10000 UNITS SUB-Q (10:32)
[2024-03-13] MEDS: CYCLOBENZAPRINE HCL 10 MG TABLET PO ×2 (10:32→21:08)
--- NOTE | 2024-03-13 10:39 | PC.NURSE ---
This RN spoke with the MD about the patients blood glucose level this morning. Blood glucose was 82, pt has 40units of Lantus ordered. Verbal order to hold the Lantus.
[2024-03-13 11:50] LABS: Glucose Point of Care 189 mg/dl (65-105)
--- NOTE | 2024-03-13 11:54 | PM.IMPN ---
Progress Note: A&P Assessment and Plan (1) Hypotension: Code(s): I95.9 - Hypotension, unspecified Status: Acute Assessment and Plan: Patient developed low BP on 03/07 and transferred to ICU due to hypotension. CTA Ch/A/P 03/07 showing large pericardial effusion, possible exudative and L>R pleural effusion. Bedside limited echo 03/07 showing pericardial effusion and current blood pressure is 150/60. (2) Atrial fibrillation: Code(s): I48.91 - Unspecified atrial fibrillation Status: Acute Assessment and Plan: Eliquis added but held due to potential of bleeding He is on aspirin and Plavix He underwent DC Cardioversion 03/11 with latter-day of sinus rhythm using 200J x 1 Tele showing he is maintaining NSR. Started oral Amiodarone (3) ST elevation (STEMI) myocardial infarction: Code(s): I21.3 - ST elevation (STEMI) myocardial infarction of unspecified site Status: Acute Assessment and Plan: Patient presents with neck pain and found to have inferior and anterolateral ST-elevation [place]. Troponin normal x3. STEMI alert and patient went for [facility]: s/p PTCA/PCI with KENYA x1 to mid RCA which was 90% blocked and was the culprit vessel. No LV gram was performed due to acute on chronic kidney disease Echo showing EF 65-70%, Patient was started on aspirin, Brilinta, rosuvastatin, (4) Acute renal failure superimposed on stage 3 chronic kidney disease: Code(s): N17.9 - Acute kidney failure, unspecified; N18.30 - Chronic kidney disease, stage 3 unspecified Status: Acute Assessment and Plan: CRF stage IV creatinine 3.2 and GFR 20 And gentle hydration. Avoid nephrotoxic drugs. Monitor antihypertensive drugs Avoid NSAIDs. Routine CMP monitor GFR. Monitor electrolytes potassium levels. (5) UTI (urinary tract infection): Code(s): N39.0 - Urinary tract infection, site not specified Status: Acute Assessment and Plan: Urine cultures and sensitivity. Proteus mirabilis Continue IV hydration. Monitor CBC CMP Monitor vital signs Continue Aztreonam (6) Insulin dependent type 2 diabetes mellitus: Code(s): E11.9 - Type 2 diabetes mellitus without complications; Z79.4 - long-term (current) use of insulin Status: Acute Assessment and Plan: A1c 8.0. The patient's blood glucose was reviewed on 03/12 Glucose better controlled Continue AccuCheks covering with sliding scale. Hypoglycemia protocol available as needed. Continue to monitor for now (7) Anemia: Code(s): D64.9 - Anemia, unspecified Status: Acute Assessment and Plan: Chronic anemia with Hgb mostly in the 8-9 range H&H 7.9/25.7. No need for transfusion will continue to monitor (8) Peripheral vascular disease: Code(s): I73.9 - Peripheral vascular disease, unspecified Status: Acute Assessment and Plan: Chronic -right BKA -dopplerable pedal pulses on the left (9) Chest pain: Code(s): R07.9 - Chest pain, unspecified Status: Acute Assessment and Plan: As above Plan DVT prophylaxis. left leg SCDs code status full code GI prophylaxis. PPI All records reviewed Discussed plan of care with the nursing staff and with the patient in detail. Answered all questions and concerns from the patient. All labs have been reviewed. Code status updated dictation may have been done utilizing a voice recognition system. Attempts have been made to correct errors. However, there may be uncorrected grammatical, spelling, and recognition errors present. Subjective Date/time seen: 03/13/24 11:54 Interval history: Patient denies any complaint no chest pain or shortness of breath does feel that he is more warm than normal Review of Systems Review of Systems: All systems reviewed & are unremarkable except as noted in HPI and below Exam Narrative: Gen - NARD si
--- NOTE | 2024-03-13 13:19 | P.PNNP_ITS ---
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 * prerenal factors(?) * cannot r/o an element of CKD progression * second insult likely due to * fluctuating hypotension/hemodynamic instability * fluctuating H/H * Afib with RVR * contrast (cardiac cath + CT scan) * UTI * evaluation to date noted: * urine eosinophil negative * urine electrolytes prerenal * mild proteinuria * CPK normal * renal ultrasound c/w CKD * follow trend of repeat labs and UOP (2) Chronic kidney disease, stage 3: Code(s): N18.3 - Chronic kidney disease, stage 3 (moderate) Status: Chronic Assessment and Plan: * baseline creatinine seems to run ~ 1.4 - 1.7mg/dl * this would cause him to fluctuate between CKD stage 3A and stage 3B * likely secondary to hypertension, diabetes, severe vascular disease (CAD + PAD + hyperlipidemia), and age (3) Hypotension: Code(s): I95.9 - Hypotension, unspecified Status: Acute Assessment and Plan: * better * as noted on 03/07 with transfer to ICU * CTA C/A/P demonstrating large pericardial effusion, possible exudative and L>R pleural effusion * limited bedside echo showing pericardial effusion but does not appear to be significant and no tamponade physiology * etiology presumed to be medication related: * antihypertensives * pain medications * improvement noted with IVFs initially * on/off lexx-synephrine - currently off * UA suggest UTI - culture with Proteus * on antibiotics * monitor hemodynamics (4) Hyperkalemia: Code(s): E87.5 - Hyperkalemia Status: Acute Assessment and Plan: * better * presumably due to #1 * on lokelma - wean off * follow repeat K+ levels (5) ST elevation (STEMI) myocardial infarction: Code(s): I21.3 - ST elevation (STEMI) myocardial infarction of unspecified site Status: Acute Assessment and Plan: * admission EKG showed inferior lateral ST-elevation [place] * s/p cardiac cath with PTCA/PCI with KENYA x 1 to mid RCA which was 90% blocked * no LV gram was performed due to renal dysfunction * Cardiology following * Echo results noted * remains on DAPT and statin (6) Atrial fibrillation: Code(s): I48.91 - Unspecified atrial fibrillation Status: Acute Assessment and Plan: * on amiodarone * s/p cardioversion on 03/11 * on anticoagulation * Cardiology following (7) Metabolic acidosis: Code(s): E87.20 - Acidosis, unspecified Status: Acute Assessment and Plan: * better * on oral sodium bicarbonate - wean as tolerated * follow CO2 levels (8) Anemia: Code(s): D64.9 - Anemia, unspecified Status: Acute Assessment and Plan: * due in part to CKD and acute illness * follow trend of H/H * start Epogen while hospitalized (9) Insulin dependent type 2 diabetes mellitus: Code(s): E11.9 - Type 2 diabetes mellitus without complications; Z79.4 - care home (current) use of insulin Status: Acute Assessment and Plan: * follow accu-cheks * glycemic control per hospitalist/special warfare operator Will continue to follow. Subjective Date/time seen: 03/13/24 13:19 Interval history: Follow-up for acute kidney
--- NOTE | 2024-03-13 13:19 | PM.PNNEP ---
Progress Note: A&P Assessment and Plan (1) SIM (acute kidney injury): Code(s): N17.9 - Acute kidney failure, unspecified Status: Acute Assessment and Plan: still elevated suspect initial insult due to: acute ID concurrent ETHAN-I NUCLEAR CHEMISTRY TECHNICIAN prerenal factors(?) cannot r/o an element of CKD progression second insult likely due to fluctuating hypotension/hemodynamic instability fluctuating H/H Afib with RVR contrast (cardiac cath + CT scan) UTI evaluation to date noted: urine eosinophil negative urine electrolytes prerenal mild proteinuria CPK normal renal ultrasound c/w CKD follow trend of repeat labs and UOP (2) Chronic kidney disease, stage 3: Code(s): N18.3 - Chronic kidney disease, stage 3 (moderate) Status: Chronic Assessment and Plan: baseline creatinine seems to run ~ 1.4 - 1.7mg/dl this would cause him to fluctuate between CKD stage 3A and stage 3B likely secondary to hypertension, diabetes, severe vascular disease (CAD + PAD + hyperlipidemia), and age (3) Hypotension: Code(s): I95.9 - Hypotension, unspecified Status: Acute Assessment and Plan: better as noted on 03/07 with transfer to ICU CTA C/A/P demonstrating large pericardial effusion, possible exudative and L>R pleural effusion limited bedside echo showing pericardial effusion but does not appear to be significant and no tamponade physiology etiology presumed to be medication related: antihypertensives pain medications improvement noted with IVFs initially on/off lexx-synephrine - currently off UA suggest UTI - culture with Proteus on antibiotics monitor hemodynamics (4) Hyperkalemia: Code(s): E87.5 - Hyperkalemia Status: Acute Assessment and Plan: better presumably due to #1 on lokelma - wean off follow repeat K+ levels (5) ST elevation (STEMI) myocardial infarction: Code(s): I21.3 - ST elevation (STEMI) myocardial infarction of unspecified site Status: Acute Assessment and Plan: admission EKG showed inferior lateral ST-elevation [place] s/p cardiac cath with PTCA/PCI with KENYA x 1 to mid RCA which was 90% blocked no LV gram was performed due to renal dysfunction Cardiology following Echo results noted remains on DAPT and statin (6) Atrial fibrillation: Code(s): I48.91 - Unspecified atrial fibrillation Status: Acute Assessment and Plan: on amiodarone s/p cardioversion on 03/11 on anticoagulation Cardiology following (7) Metabolic acidosis: Code(s): E87.20 - Acidosis, unspecified Status: Acute Assessment and Plan: better on oral sodium bicarbonate - wean as tolerated follow CO2 levels (8) Anemia: Code(s): D64.9 - Anemia, unspecified Status: Acute Assessment and Plan: due in part to CKD and acute illness follow trend of H/H start Epogen while hospitalized (9) Insulin dependent type 2 diabetes mellitus: Code(s): E11.9 - Type 2 diabetes mellitus without complications; Z79.4 - senior living (current) use of insulin Status: Acute Assessment and Plan: follow accu-cheks glycemic control per hospitalist/public health sanitarian Will continue to follow. Subjective Date/time seen: 03/13/24 13:19 Interval history: Follow-up for acute kidney injruy/acute renal failure on chronic kidney disease. Transferred out of ICU yesterday; remains hemodynamically stable with maintenance or normal sinus rhythm since cardioversion 48 hours ago; renal function remains the same with ongoing reasonable urine output at this time; no apparent distress voiced at the time of my visit. Exam Narrative: General: elderly male in NAD Heart: normal S1 and S2; no rub Lungs: clear anteriorly, decreased at bases Abdomen: soft, nontender, nondistended, positive bowel sounds Extremities: no cyanosis or clubbing; no edema;
--- NOTE | 2024-03-13 14:13 | PC.NURSE ---
This RN attempted to give this patient his afternoon dose of medication. Patient refused medication unless he got a rub down. Patient was told that is not how we're going to act or talk to each other. That behavior is not appropriate. notified.
[2024-03-13] MEDS: INSULIN ASPART (*BKC) 100 UNITS/ML SUB-Q ×2 (17:06→21:06)
[2024-03-13 19:16] LABS: Glucose Point of Care 213 mg/dl (65-105)
[2024-03-13 20:30] LABS: Glucose Point of Care 272 mg/dl (65-105)
[2024-03-13] MEDS: INSULIN GLARGINE (*BKC) 100 UNITS/ML 40 UNITS SUB-Q (21:02)
[2024-03-13] MEDS: MELATONIN 5 MG TABLET 10 MG PO (21:09)
[2024-03-14] VITALS (15 sets, daily range): BP systolic 102–180; BP diastolic 44–67; PULSE 71–91; RESP 20–28; TEMP 36–36.5; O2SAT 90–98
[2024-03-14 04:12] LABS: Hematocrit 26.3 % (42.0-52.0); Hemoglobin 8.1 g/dL (14.0-18.0); Mean Corpuscular HGB Conc 30.8 g/dl (32-36); Mean Corpuscular Hemoglobin 29.1 pg (26-34); Mean Corpuscular Volume 94.6 fl (80-100); Platelet Count Result 282 k/mm3 (150-375); Red Blood Count 2.78 M/mm3 (4.6-6.20); White Blood Count 12.8 K/mm3 (4.5-10.0)
[2024-03-14 04:29] LABS: Alanine Aminotransferase 42 U/L (6-50); Albumin Level 3.2 g/dL (3.5-5.1); Alkaline Phosphatase 169 U/L (38-126); Anion Gap 8 mmol/L (4-12); Aspartate Amino Transferase 20 U/L (17-59); Bilirubin,Total 0.5 mg/dL (0.2-1.3); Blood Urea Nitrogen 82 mg/dL (9-20); Calcium 8.9 mg/dL (8.4-10.2); Carbon Dioxide 25 mmol/L (22-30); Chloride 107 mmol/L (98-107); Estimated CRCL calculation 33 ml/min; Estimated Glomerular Filt Rate 23; Glucose 177 mg/dL (65-110); Magnesium 2.8 mg/dL (1.6-2.3); Potassium 5.2 mmol/L (3.4-5.0); Sodium 140 mmol/L (137-145)
[2024-03-14] MEDS: CENTRAL LINE FLUSH 10 ML IV PUSH ×2 (06:16→21:22)
[2024-03-14] MEDS: FLUTICASONE/SALMETEROL 115-21 MCG INHALER 1 PUFF 2 PUFF INHALATION ×2 (06:59→20:52)
[2024-03-14] MEDS: ALBUTEROL SULFATE (*SP) AEROSOL 1 PUFF 2 PUFF INHALATION (06:59)
--- NOTE | 2024-03-14 08:00 | PC.NURSE ---
Restraints removed at this time during assessment. Patient is oriented x4 and following simple commands. He states that he waving the white flag and will work with you . This RN discussed with the patient the plan for the day, which included getting up to the chair to sit up for awhile. Furthermore, discussed with the patient the importance of working with physical therapy when they come to see him. The patient was agreeable and compliant. Sitter remains at the bedside at this time.
[2024-03-14] MEDS: PREGABALIN (*CRX) 75 MG CAPSULE 150 MG PO ×3 (08:07→18:26)
[2024-03-14] MEDS: guaiFENesin 12 HR 600 MG TABCR 1200 MG PO ×2 (08:07→21:22)
[2024-03-14] MEDS: ROSUVASTATIN 10 MG TABLET 20 MG PO (08:07)
[2024-03-14] MEDS: SODIUM BICARBONATE TAB 650 MG TABLET PO (08:08)
[2024-03-14] MEDS: AMIODARONE HCL 200 MG TABLET 400 MG PO (08:08)
[2024-03-14] MEDS: ASPIRIN 81 MG ENTERIC TABLET PO (08:08)
[2024-03-14] MEDS: PANTOPRAZOLE 40 MG TABLET PO (08:08)
[2024-03-14] MEDS: CLOPIDOGREL BISULFATE 75 MG TABLET PO (08:08)
[2024-03-14] MEDS: buPROPion HCL SR (12HR) 100 MG TABCR PO (08:08)
[2024-03-14] MEDS: TAMSULOSIN HCL 0.4 MG CAPSULE PO (08:09)
[2024-03-14] MEDS: MICONAZOLE NITRATE 2% CREAM 30 GM TUBE 1 APPLIC TOPICAL ×2 (08:09→21:22)
[2024-03-14] MEDS: INSULIN GLARGINE (*BKC) 100 UNITS/ML 40 UNITS SUB-Q ×2 (08:11→21:23)
[2024-03-14 08:15] LABS: Glucose Point of Care 169 mg/dl (65-105)
--- NOTE | 2024-03-14 08:30 | PC.NURSE ---
Patient was moved from the bed to the chair with the use of a Tatiana lift. He tolerated the moved well. Skin care on buttocks was completed at this time. Patient tolerated well.
--- NOTE | 2024-03-14 10:04 | PC.NURSE ---
During hourly rounds, this RN checked on patient status while sitting up in the chair. Upon entry into the room this RN noticed that the patient had removed his oxygen, taken off his gown, school lunch monitor and threw all of the contents on the top of his bedside table onto the floor. When asked What are you trying to do? The patient stated I am trying to get out of here .The patient was noted to be short of breath. Oxygen was immediately placed back on the patient as well as the school lunch monitor. This RN called for assistance to put the patient back to bed with the use of the Tatiana lift. With the assistance of three other staff members, we lifted the patient with the Tatiana lift and put him back to bed. The patient was cleaned up at this time, as he was noted to have a large bowel movement. A fresh gown and bed linen was placed. The patient is now lying in bed with no complaints. He does appear to be confused, and states that there were people in his room. It should be noted that this RN was in his room approximately 10min prior to this encounter checking on his status while sitting in the chair and at that time the patient was ok with no noted issues. This RN request a set of vital signs from the quality assurance lab technician assisting with patient.
--- NOTE | 2024-03-14 10:05 | PC.NURSE ---
At 1005 discussed with provider patients non-compliance with cardiac monitoring and IV access. Placed in soft wrist restraints, however the patient is able to pull at monitor wires as well as reached [place] catheter and removed it. MD is to review medications and convert an medications from IV to PO. OK to keep IV out at this time. Ok to keep bank consultant off at this time as patient refuses.
--- NOTE | 2024-03-14 10:05 | PC.NURSE ---
This RN noted on the monitor that the patient had removed his business intelligence consultant for the second time in under 5 min. The patient also pulled out his IV access. Order received to place soft wrist restraints on at this time.
--- NOTE | 2024-03-14 10:33 | PCNWS ---
Weekly nutritional screen. Patient is tolerating current diet with adequate intake, variable intake 50-100%. No weight loss reported. No nutritional needs at this time.
--- NOTE | 2024-03-14 11:00 | PC.NURSE ---
Cardiology provider at the bedside. Discussed most recent behaviors that the patient is having including continuously taking off his groundwater monitoring technician even with soft restraints. Discussed with the provider and since the patient is refusing the groundwater monitoring technician at this time we will keep it off. Also discussed with the provider that the patient had again removed his IV access. Provider to review medications and convert an IV medications to PO.
--- NOTE | 2024-03-14 11:15 | PM.IMPN ---
Progress Note: A&P Assessment and Plan (1) Hypotension: Code(s): I95.9 - Hypotension, unspecified Status: Acute Assessment and Plan: Patient developed low BP on 03/07 and transferred to ICU due to hypotension. CTA Ch/A/P 03/07 showing large pericardial effusion, possible exudative and L>R pleural effusion. Bedside limited echo 03/07 showing pericardial effusion and current blood pressure is 150/60. (2) Atrial fibrillation: Code(s): I48.91 - Unspecified atrial fibrillation Status: Acute Assessment and Plan: Eliquis added but held due to potential of bleeding He is on aspirin and Plavix He underwent DC Cardioversion 03/11 with christianity of sinus rhythm using 200J x 1 Tele showing he is maintaining NSR. Started oral Amiodarone (3) ST elevation (STEMI) myocardial infarction: Code(s): I21.3 - ST elevation (STEMI) myocardial infarction of unspecified site Status: Acute Assessment and Plan: Patient presents with neck pain and found to have inferior and anterolateral ST-elevation [place]. Troponin normal x3. STEMI alert and patient went for [facility]: s/p PTCA/PCI with KENYA x1 to mid RCA which was 90% blocked and was the culprit vessel. No LV gram was performed due to acute on chronic kidney disease Echo showing EF 65-70%, Patient was started on aspirin, Brilinta, rosuvastatin, (4) Acute renal failure superimposed on stage 3 chronic kidney disease: Code(s): N17.9 - Acute kidney failure, unspecified; N18.30 - Chronic kidney disease, stage 3 unspecified Status: Acute Assessment and Plan: CRF stage IV creatinine 2.8 and GFR 20 And gentle hydration. Avoid nephrotoxic drugs. Monitor antihypertensive drugs Avoid NSAIDs. Routine CMP monitor GFR. Monitor electrolytes potassium levels. (5) UTI (urinary tract infection): Code(s): N39.0 - Urinary tract infection, site not specified Status: Acute Assessment and Plan: Urine cultures and sensitivity. Proteus mirabilis Continue IV hydration. Monitor CBC CMP Monitor vital signs Continue Aztreonam (6) Insulin dependent type 2 diabetes mellitus: Code(s): E11.9 - Type 2 diabetes mellitus without complications; Z79.4 - detention (current) use of insulin Status: Acute Assessment and Plan: A1c 8.0. The patient's blood glucose was reviewed on 03/12 Glucose better controlled Continue AccuCheks covering with sliding scale. Hypoglycemia protocol available as needed. Continue to monitor for now (7) Anemia: Code(s): D64.9 - Anemia, unspecified Status: Acute Assessment and Plan: Chronic anemia with Hgb mostly in the 8-9 range H&H 8.1/25.7. No need for transfusion will continue to monitor (8) Peripheral vascular disease: Code(s): I73.9 - Peripheral vascular disease, unspecified Status: Acute Assessment and Plan: Chronic -right BKA -dopplerable pedal pulses on the left (9) Chest pain: Code(s): R07.9 - Chest pain, unspecified Status: Acute Assessment and Plan: As above Plan DVT prophylaxis. left leg SCDs code status full code GI prophylaxis. PPI All records reviewed Discussed plan of care with the nursing staff and with the patient in detail. Answered all questions and concerns from the patient. All labs have been reviewed. Code status updated dictation may have been done utilizing a voice recognition system. Attempts have been made to correct errors. However, there may be uncorrected grammatical, spelling, and recognition errors present. Subjective Date/time seen: 03/14/24 11:15 Interval history: Patient denies any complaint no chest pain or shortness of breath does feel that he is more warm than normal Review of Systems Review of Systems: All systems reviewed & are unremarkable except as noted in HPI and below Exam Narrative: General: [place]
[2024-03-14 12:13] LABS: Glucose Point of Care 225 mg/dl (65-105)
[2024-03-14] MEDS: INSULIN ASPART (*BKC) 100 UNITS/ML SUB-Q ×3 (12:41→21:23)
--- NOTE | 2024-03-14 12:47 | P.PNNP_ITS ---
Progress Note: A&P Assessment and Plan (1) SIM (acute kidney injury): Code(s): N17.9 - Acute kidney failure, unspecified Status: Acute Assessment and Plan: * slight improvement noted * suspect initial insult due to: * acute MS * concurrent ETHAN-I BUSINESS ANALYST CONSULTANT * prerenal factors(?) * cannot r/o an element of CKD progression * second insult likely due to * fluctuating hypotension/hemodynamic instability * fluctuating H/H * Afib with RVR * contrast (cardiac cath + CT scan) * UTI * evaluation to date noted: * urine eosinophil negative * urine electrolytes prerenal * mild proteinuria * CPK normal * renal ultrasound c/w CKD * follow trend of repeat labs and UOP (2) Chronic kidney disease, stage 3: Code(s): N18.3 - Chronic kidney disease, stage 3 (moderate) Status: Chronic Assessment and Plan: * baseline creatinine seems to run ~ 1.4 - 1.7mg/dl * this would cause him to fluctuate between CKD stage 3A and stage 3B * likely secondary to hypertension, diabetes, severe vascular disease (CAD + PAD + hyperlipidemia), and age (3) Hypotension: Code(s): I95.9 - Hypotension, unspecified Status: Acute Assessment and Plan: * resolved * as noted on 03/07 with transfer to ICU * CTA C/A/P demonstrating large pericardial effusion, possible exudative and L>R pleural effusion * limited bedside echo showing pericardial effusion but does not appear to be significant and no tamponade physiology * etiology presumed to be medication related: * antihypertensives * pain medications * improvement noted with IVFs initially * weaned off vasopressor therapy * UA suggest UTI - culture with Proteus * on antibiotics * monitor hemodynamics (4) Hyperkalemia: Code(s): E87.5 - Hyperkalemia Status: Acute Assessment and Plan: * better * presumably due to #1 * off lokelma * follow repeat K+ levels (5) ST elevation (STEMI) myocardial infarction: Code(s): I21.3 - ST elevation (STEMI) myocardial infarction of unspecified site Status: Acute Assessment and Plan: * admission EKG showed inferior lateral ST-elevation MS * s/p cardiac cath with PTCA/PCI with KENYA x 1 to mid RCA which was 90% blocked * no LV gram was performed due to renal dysfunction * Cardiology following * Echo results noted * remains on DAPT and statin (6) Atrial fibrillation: Code(s): I48.91 - Unspecified atrial fibrillation Status: Acute Assessment and Plan: * on amiodarone * s/p cardioversion on 03/11 * on anticoagulation * Cardiology following (7) Metabolic acidosis: Code(s): E87.20 - Acidosis, unspecified Status: Acute Assessment and Plan: * better * on oral sodium bicarbonate - wean as tolerated * follow CO2 levels (8) Anemia: Code(s): D64.9 - Anemia, unspecified Status: Acute Assessment and Plan: * due in part to CKD and acute illness * follow trend of H/H * start Epogen while hospitalized (9) Insulin dependent type 2 diabetes mellitus: Code(s): E11.9 - Type 2 diabetes mellitus without complications; Z79.4 - lobsterman (current) use of insulin Status: Acute Assessment and Plan: * follow accu-cheks * glycemic control per hospitalist/senior product development scientist Will continue to follow. Subjective Date/time seen: 03/14/24 12:47 Interval history: Follow-up for acute kidney injdonovan
--- NOTE | 2024-03-14 12:47 | PM.PNNEP ---
Progress Note: A&P Assessment and Plan (1) SIM (acute kidney injury): Code(s): N17.9 - Acute kidney failure, unspecified Status: Acute Assessment and Plan: slight improvement noted suspect initial insult due to: acute [place] concurrent ETHAN-I HAT BLOCK BENCH HAND prerenal factors(?) cannot r/o an element of CKD progression second insult likely due to fluctuating hypotension/hemodynamic instability fluctuating H/H Afib with RVR contrast (cardiac cath + CT scan) UTI evaluation to date noted: urine eosinophil negative urine electrolytes prerenal mild proteinuria CPK normal renal ultrasound c/w CKD follow trend of repeat labs and UOP (2) Chronic kidney disease, stage 3: Code(s): N18.3 - Chronic kidney disease, stage 3 (moderate) Status: Chronic Assessment and Plan: baseline creatinine seems to run ~ 1.4 - 1.7mg/dl this would cause him to fluctuate between CKD stage 3A and stage 3B likely secondary to hypertension, diabetes, severe vascular disease (CAD + PAD + hyperlipidemia), and age (3) Hypotension: Code(s): I95.9 - Hypotension, unspecified Status: Acute Assessment and Plan: resolved as noted on 03/07 with transfer to ICU CTA C/A/P demonstrating large pericardial effusion, possible exudative and L>R pleural effusion limited bedside echo showing pericardial effusion but does not appear to be significant and no tamponade physiology etiology presumed to be medication related: antihypertensives pain medications improvement noted with IVFs initially weaned off vasopressor therapy UA suggest UTI - culture with Proteus on antibiotics monitor hemodynamics (4) Hyperkalemia: Code(s): E87.5 - Hyperkalemia Status: Acute Assessment and Plan: better presumably due to #1 off lokelma follow repeat K+ levels (5) ST elevation (STEMI) myocardial infarction: Code(s): I21.3 - ST elevation (STEMI) myocardial infarction of unspecified site Status: Acute Assessment and Plan: admission EKG showed inferior lateral ST-elevation CO s/p cardiac cath with PTCA/PCI with KENYA x 1 to mid RCA which was 90% blocked no LV gram was performed due to renal dysfunction Cardiology following Echo results noted remains on DAPT and statin (6) Atrial fibrillation: Code(s): I48.91 - Unspecified atrial fibrillation Status: Acute Assessment and Plan: on amiodarone s/p cardioversion on 03/11 on anticoagulation Cardiology following (7) Metabolic acidosis: Code(s): E87.20 - Acidosis, unspecified Status: Acute Assessment and Plan: better on oral sodium bicarbonate - wean as tolerated follow CO2 levels (8) Anemia: Code(s): D64.9 - Anemia, unspecified Status: Acute Assessment and Plan: due in part to CKD and acute illness follow trend of H/H start Epogen while hospitalized (9) Insulin dependent type 2 diabetes mellitus: Code(s): E11.9 - Type 2 diabetes mellitus without complications; Z79.4 - ferry terminal supervisor (current) use of insulin Status: Acute Assessment and Plan: follow accu-cheks glycemic control per hospitalist/halver machine operator Will continue to follow. Subjective Date/time seen: 03/14/24 12:47 Interval history: Follow-up for acute kidney injruy/acute renal failure on chronic kidney disease. Renal function a tad better with reasonable urine output noted; no apparent distress noted at the time of my visit -- denies any shortness of breath or chest pain/discomfort; no events overnight or earlier this morning. Exam Narrative: General: elderly male in NAD Heart: normal S1 and S2; no rub Lungs: clear anteriorly, decreased at bases Abdomen: soft, nontender, nondistended, positive bowel sounds Extremities: no cyanosis or clubbing; no edema; s/p right BKA Skin: no nodules Objective Data Vital Sign
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
--- NOTE | 2024-03-14 15:13 | PM.PNCARD ---
Progress Note: A&P Assessment and Plan (1) ST elevation (STEMI) myocardial infarction: Code(s): I21.3 - ST elevation (STEMI) myocardial infarction of unspecified site Status: Acute Assessment and Plan: History of multivessel coronary disease admission to the hospital on 03/[address] elevation NH underwent successful percutaneous revascularization of his mid circumflex which was technically challenging because of his extensive vascular disease and difficult vascular access. Procedure was ultimately done with a good angiographic result. Previous stented vessels in his LAD and right mid right coronary were remaining patent. He has extensive peripheral vascular disease and has undergone right lower extremity amputation. Continue clopidogrel 75 mg daily, aspirin 81 mg daily, high intensity statin (2) Atrial fibrillation with RVR: Code(s): I48.91 - Unspecified atrial fibrillation Status: Acute Assessment and Plan: S/p DCCV and maintaining sinus rhythm. Anticipate resuming heparin infusion when H&H improves with intention of shifting to DOAC if he tolerates heparin infusion. (3) Acute renal failure superimposed on stage 3 chronic kidney disease: Code(s): N17.9 - Acute kidney failure, unspecified; N18.30 - Chronic kidney disease, stage 3 unspecified Status: Acute Assessment and Plan: Multifactorial secondary to acute NH, hypotension, contrast exposure. SCr improved today. (4) Essential (primary) hypertension: Code(s): I10 - Essential (primary) hypertension Status: Chronic Assessment and Plan: Currently at goal. (5) Insulin dependent type 2 diabetes mellitus: Code(s): E11.9 - Type 2 diabetes mellitus without complications; Z79.4 - prison (current) use of insulin Status: Acute Assessment and Plan: Management per hospitalist service (6) Peripheral arterial disease: Code(s): I73.9 - Peripheral vascular disease, unspecified Status: Acute Assessment and Plan: On ASA, plavix, statin (7) Dyslipidemia: Code(s): E78.5 - Hyperlipidemia, unspecified Status: Acute Assessment and Plan: Continue high intensity statin (8) CHF (congestive heart failure): Code(s): I50.9 - Heart failure, unspecified Status: Acute Assessment and Plan: He has pulmonary rales on exam and LE edema. Check CXR Will restart furosemide today. He does not have IV access currently so will start p.o. Monitor intake and output Daily weights Subjective Date/time seen: 03/14/24 15:13 Interval history: Follow-up visit in this 63-year-old man with diffuse coronary and peripheral arterial disease. Presented to the hospital on 03/04/2024 with some neck pain and altered mental status. STEMI was declared because of inferolateral ST segment elevation. High-grade stenosis in the trunk of the circumflex was identified and treated with PCI as detailed in the catheterization lab report. Previous LAD and right coronary stents were patent. Patient remains hospitalized was having difficulty with recurrence of atrial fibrillation last evening. This was a accompanied by hypotension requiring transfer back to the ICU. Likely this is a combination of his atrial fib other medications that were on board for hypertension. He is receiving intravenous amiodarone at this time and persisting atrial fib with heart rate 100-110. He is resting relatively comfortably upon awakening he offers no specific complaints. Date of service 03/09/2024: He was not complaining of chest pain earlier today is reported but not complaints of significant reproducible chest pain worse with deep breathing, movement, coughing or any palpation. Morphine helps. BP variable, Khanh-Synephrine held secondary to hypertension. Date of service 03/10/2024: Patient is sleepy but arousable. Feels better today. No chest pain. Breathing stable. He is off Khanh-Synephrin
--- NOTE | 2024-03-14 15:16 | PCOTNOTE ---
Attempted to see Patient at this time. RN present and Patient sitter. Patient is unable to be seen due to being in restraints at this time, seems very angry and attempting to throw items.
[2024-03-14] MEDS: FUROSEMIDE 40 MG TABLET PO ×2 (15:18→18:26)
[2024-03-14 16:07] LABS: Glucose Point of Care 222 mg/dl (65-105)
[2024-03-14 20:05] LABS: Glucose Point of Care 291 mg/dl (65-105)
[2024-03-14] MEDS: MELATONIN 5 MG TABLET 10 MG PO (21:24)
[2024-03-14] MEDS: CYCLOBENZAPRINE HCL 10 MG TABLET PO (21:24)
[2024-03-15] VITALS (38 sets, daily range): BP systolic 92–154; BP diastolic 50–102; PULSE 79–135; RESP 19–34; TEMP 36.4–37.4; O2SAT 90–100
--- NOTE | 2024-03-15 04:04 | PC.NURSE ---
0404: This RN attempted to call Jaskaran Carr, the person to notify, regarding patients' condition.
--- NOTE | 2024-03-15 04:07 | PC.NURSE ---
0408: RN called Modesta Morelos, the patient's cousin, regarding patient condition. Modesta stated that she is not next of kin and not willing to make medical decisions for the patient. Modesta stated that patient has a sister. RN asked if she had the sisters' phone number and was told that Modesta has tried to contact her and has not responded.
--- NOTE | 2024-03-15 04:11 | PC.NURSE ---
0411: RN placed a call to patients' place of residence, [facility], and spoke with Lucero. RN asked her if they had any other contacts listed in their records. RN was informed that the patients only contact in their records was Modesta Morelos.
[2024-03-15 04:20] LABS: Alveolar/Arterial O2 Gradient 434.4 mmHg; Base Excess ABG -1.4 mEq/l (+/-2.0); Fractional Inspired Oxygen 80 %; HCO3 ABG 25.2 mEq/l (22.0-26.0); Oxygen Content ABG 13.2 %vol (16.0-22.0); Oxygen Saturation ABG 94.9 % (95.0-100.0); Oxyhemoglobin 93.2 % THb (90.0-100.0); PCO2 ABG 51.7 mmHg (35.0-45.0); PO2 ABG 81.7 mmHg (80.0-100.0); PO2 FiO2 Ratio Arterial Blood 1.02 %; pH ABG 7.306 (7.350-7.450)
--- NOTE | 2024-03-15 04:26 | PC.NURSE ---
0426: RN spoke with Modesta Bruno, Jaskaran Torres' . Modesta stated that she is unwilling to make medical decisions for the patient. Modesta stated that her felt the same was and was not willing to wake him up for RN to speak with.
--- NOTE | 2024-03-15 04:35 | PM.EVENT ---
Event Note Event Note Event Note: Patient with respiratory distress saturating in the low 80s this was on 4 L of oxygen by nasal cannula Objective: Patient is obtunded, ill-appearing chronically. Subjective: Obtunded vitals blood pressure 115/63 respiratory rate is 14 patient is saturating 95% on BiPAP general: Laying in bed, lethargic,, generalized pallor. HEENT: Head atraumatic normocephalic, supple, no JVD, EOM intact, PERRLA. respiratory: Absent breath sounds on left side cardiovascular: S1-S2 heard abdomen: Nondistended soft nontender no hepatosplenomegaly. extremities: Right BKA, left chronic skin changes and discoloration. skin: No cyanosis central nervous system: Cranial nerves 2-12 grossly intact Assessment and plan: 1.Respiratory failure/L large pleural effusion:Started on BiPAP, IR consult for thoracentesis. 2. Severe peripheral vascular disease 3. Right BKA 4. Insulin-dependent diabetes mellitus 5. CKD 6. Chronic pain syndrome 7. Coronary artery disease
--- NOTE | 2024-03-15 05:10 | PC.NURSE ---
This patient, Noel Rodriguez, was transferred to ICU 6 on 03/15/24 at 0420. Personal belongings sent with patient. Report given to YUNIOR Pratt. Appropriate documentation sent with patient.
--- NOTE | 2024-03-15 05:22 | PC.NURSE ---
pt transfered from IMU in bed with o2 at 15lpm via non rebreather mask. Pt not responding to question but when placing pt on monitor pt started resisting and pinching staff. hemphill placed requiring staff x 2 to restrain pt. while attempting to place an IV with ultrasound pt moving arms continuing to pinch at staff. monitoring devicesin place but labile with pt movement. When pt still o2 sat 95% via ventimask at 40% fiO2. RR 25-30 HR a fib from 105 to 122. Bipap placed but pt became more aggitated and restraints were placed. No IV access found via ultrasound. Dr pitts aware. Pt changed to venti mask at 40% because of physical restraints. pulse ox 94% RR 28-30 on venti mask. Pt awake looking at RN but continues to remain uncooperative and combative.
[2024-03-15 05:31] LABS: Device HIGH FLOW NASAL CANN; Modified Allen's Test Pass; Site Drawn LEFT RADIAL
[2024-03-15 06:38] LABS: Hematocrit 31.8 % (42.0-52.0); Hemoglobin 9.2 g/dL (14.0-18.0); Mean Corpuscular HGB Conc 28.9 g/dl (32-36); Mean Corpuscular Hemoglobin 28.7 pg (26-34); Mean Corpuscular Volume 99.1 fl (80-100); Mean Platelet Volume 11.8 fl (7.4-10.4); Platelet Count Result 302 k/mm3 (150-375); Red Blood Count 3.21 M/mm3 (4.6-6.20); Red Cell Distribution Width 18.3 % (11.5-14.5); White Blood Count 19.6 K/mm3 (4.5-10.0)
[2024-03-15 06:48] LABS: Alanine Aminotransferase 34 U/L (6-50); Albumin Level 3.7 g/dL (3.5-5.1); Alkaline Phosphatase 160 U/L (38-126); Anion Gap 11 mmol/L (4-12); Aspartate Amino Transferase 20 U/L (17-59); Bilirubin,Total 0.7 mg/dL (0.2-1.3); Blood Urea Nitrogen 76 mg/dL (9-20); Calcium 9.6 mg/dL (8.4-10.2); Carbon Dioxide 22 mmol/L (22-30); Chloride 109 mmol/L (98-107); Estimated CRCL calculation 39 ml/min; Estimated Glomerular Filt Rate 30; Glucose 274 mg/dL (65-110); Magnesium 2.7 mg/dL (1.6-2.3); Potassium 5.2 mmol/L (3.4-5.0); Sodium 142 mmol/L (137-145)
[2024-03-15 07:26] LABS: Glucose Point of Care 257 mg/dl (65-105)
[2024-03-15] MEDS: AMIODARONE HCL 200 MG TABLET 400 MG PO (07:55)
[2024-03-15] MEDS: FLUTICASONE/SALMETEROL 115-21 MCG INHALER 1 PUFF 2 PUFF INHALATION (08:28)
[2024-03-15] MEDS: ALBUTEROL SULFATE (*SP) AEROSOL 1 PUFF 2 PUFF INHALATION (08:30)
--- NOTE | 2024-03-15 09:07 | P.PNNP_ITS ---
Progress Note: A&P Assessment and Plan (1) SIM (acute kidney injury): Code(s): N17.9 - Acute kidney failure, unspecified Status: Acute Assessment and Plan: * improvement noted * suspect initial insult due to: * acute VT * concurrent ETHAN-I DIE CASTING MACHINE MAINTAINER * prerenal factors(?) * cannot r/o an element of CKD progression * second insult likely due to * fluctuating hypotension/hemodynamic instability * fluctuating H/H * Afib with RVR * contrast (cardiac cath + CT scan) * UTI * evaluation to date noted: * urine eosinophil negative * urine electrolytes prerenal * mild proteinuria * CPK normal * renal ultrasound c/w CKD * follow trend of repeat labs and UOP (2) Chronic kidney disease, stage 3: Code(s): N18.3 - Chronic kidney disease, stage 3 (moderate) Status: Chronic Assessment and Plan: * baseline creatinine seems to run ~ 1.4 - 1.7mg/dl * this would cause him to fluctuate between CKD stage 3A and stage 3B * likely secondary to hypertension, diabetes, severe vascular disease (CAD + PAD + hyperlipidemia), and age (3) Hyperkalemia: Code(s): E87.5 - Hyperkalemia Status: Acute Assessment and Plan: * fluctuating * presumably due to #1 * off lokelma * follow repeat K+ levels (4) Acute respiratory failure: Code(s): J96.00 - Acute respiratory failure, unspecified whether with hypoxia or hypercapnia Status: Acute Assessment and Plan: * suspect multifactorial etiology: * large left pleural effusion/ whiteout of left hemithorax * hypoxia * AMS/encephalopathy * on oxygen and BiPAP support * remains at high risk for intubation * follow respiratory status closely (5) Pleural effusion, left: Code(s): J90 - Pleural effusion, not elsewhere classified Status: Acute Assessment and Plan: * as noted by recent CXR * contributing component to #4 * noted plans for thoracentesis by IR * follow-up on pleural fluid studies/analysis (6) ST elevation (STEMI) myocardial infarction: Code(s): I21.3 - ST elevation (STEMI) myocardial infarction of unspecified site Status: Acute Assessment and Plan: * admission EKG showed inferior lateral ST-elevation VT * s/p cardiac cath with PTCA/PCI with KENYA x 1 to mid RCA which was 90% blocked * no LV gram was performed due to renal dysfunction * Cardiology following * Echo results noted * remains on DAPT and statin (7) Atrial fibrillation: Code(s): I48.91 - Unspecified atrial fibrillation Status: Acute Assessment and Plan: * on amiodarone * s/p cardioversion on 03/11 * on anticoagulation * Cardiology following (8) Anemia: Code(s): D64.9 - Anemia, unspecified Status: Acute Assessment and Plan: * due in part to CKD and acute illness * follow trend of H/H * started Epogen while hospitalized givern renal dysfunction (9) UTI (urinary tract infection): Code(s): N39.0 - Urinary tract infection, site not specified Status: Acute Assessment and Plan: * urine culture with Proteus * completed 7 day course of antibiotics (10) Insulin dependent type 2 diabetes mellitus: Code(s): E11.9 - Type 2 diabetes mellitus without complications; Z79.4 - [facility] (current) use of insulin Status: Acute Assessment and Plan: * follow accu-cheks * glycemic control per hospitalist/commission auditor Will continue to follow.
--- NOTE | 2024-03-15 09:07 | PM.PNNEP ---
Progress Note: A&P Assessment and Plan (1) SIM (acute kidney injury): Code(s): N17.9 - Acute kidney failure, unspecified Status: Acute Assessment and Plan: improvement noted suspect initial insult due to: acute [place] concurrent ETHAN-I PATHOLOGIST prerenal factors(?) cannot r/o an element of CKD progression second insult likely due to fluctuating hypotension/hemodynamic instability fluctuating H/H Afib with RVR contrast (cardiac cath + CT scan) UTI evaluation to date noted: urine eosinophil negative urine electrolytes prerenal mild proteinuria CPK normal renal ultrasound c/w CKD follow trend of repeat labs and UOP (2) Chronic kidney disease, stage 3: Code(s): N18.3 - Chronic kidney disease, stage 3 (moderate) Status: Chronic Assessment and Plan: baseline creatinine seems to run ~ 1.4 - 1.7mg/dl this would cause him to fluctuate between CKD stage 3A and stage 3B likely secondary to hypertension, diabetes, severe vascular disease (CAD + PAD + hyperlipidemia), and age (3) Hyperkalemia: Code(s): E87.5 - Hyperkalemia Status: Acute Assessment and Plan: fluctuating presumably due to #1 off lokelma follow repeat K+ levels (4) Acute respiratory failure: Code(s): J96.00 - Acute respiratory failure, unspecified whether with hypoxia or hypercapnia Status: Acute Assessment and Plan: suspect multifactorial etiology: large left pleural effusion/ whiteout of left hemithorax hypoxia AMS/encephalopathy on oxygen and BiPAP support remains at high risk for intubation follow respiratory status closely (5) Pleural effusion, left: Code(s): J90 - Pleural effusion, not elsewhere classified Status: Acute Assessment and Plan: as noted by recent CXR contributing component to #4 noted plans for thoracentesis by IR follow-up on pleural fluid studies/analysis (6) ST elevation (STEMI) myocardial infarction: Code(s): I21.3 - ST elevation (STEMI) myocardial infarction of unspecified site Status: Acute Assessment and Plan: admission EKG showed inferior lateral ST-elevation [place] s/p cardiac cath with PTCA/PCI with KENYA x 1 to mid RCA which was 90% blocked no LV gram was performed due to renal dysfunction Cardiology following Echo results noted remains on DAPT and statin (7) Atrial fibrillation: Code(s): I48.91 - Unspecified atrial fibrillation Status: Acute Assessment and Plan: on amiodarone s/p cardioversion on 03/11 on anticoagulation Cardiology following (8) Anemia: Code(s): D64.9 - Anemia, unspecified Status: Acute Assessment and Plan: due in part to CKD and acute illness follow trend of H/H started Epogen while hospitalized givern renal dysfunction (9) UTI (urinary tract infection): Code(s): N39.0 - Urinary tract infection, site not specified Status: Acute Assessment and Plan: urine culture with Proteus completed 7 day course of antibiotics (10) Insulin dependent type 2 diabetes mellitus: Code(s): E11.9 - Type 2 diabetes mellitus without complications; Z79.4 - intermodal customer service (current) use of insulin Status: Acute Assessment and Plan: follow accu-cheks glycemic control per hospitalist/community center director Will continue to follow. Subjective Date/time seen: 03/15/24 09:07 Interval history: Follow-up for acute kidney injury/acute renal failure on chronic kidney disease. Events overnight and earlier this AM noted -- increasing confusion/restless overnight with patient pulling out IVs, tubing, and telemetry; then, developed respiratory distress associated with significant hypoxia (80%) on 4L of supplemental oxygen along with worsening confusion/agitation/combative behavior; placed on BiPAP therapy with improvement in respiratory status/hypoxa; CXR demonstrated whiteout of left h
[2024-03-15] MEDS: INSULIN ASPART (*BKC) 100 UNITS/ML SUB-Q ×4 (10:19→23:59)
[2024-03-15] MEDS: INSULIN GLARGINE (*BKC) 100 UNITS/ML 40 UNITS SUB-Q (10:20)
[2024-03-15 10:23] LABS: INR 1.3; Partial Thromboplastin Time 25.7 Seconds (22.3-36.8); Prothrombin Time 17.3 Seconds (11.1-14.7)
--- NOTE | 2024-03-15 10:54 | PCPTNOTE ---
Attempted PT re-evaluation. RN recommending pt not participate in skilled therapy this date due to increase O2 needs and needing a procedure done. Hospitalist contacted and agreed to holding therapy this date until medical condition improves.
[2024-03-15] MEDS: hydrALAZINE HCL 20 MG/ML VIAL 10 MG IV PUSH (11:11)
[2024-03-15 11:30] LABS: Glucose Point of Care 265 mg/dl (65-105)
[2024-03-15] MEDS: FUROSEMIDE INJ 40 MG/4 ML VIAL IV PUSH ×2 (11:59→17:39)
--- NOTE | 2024-03-15 12:04 | PM.IMPN ---
Progress Note: A&P Assessment and Plan (1) Hypotension: Code(s): I95.9 - Hypotension, unspecified Status: Acute Assessment and Plan: Patient developed low BP on 03/07 and transferred to ICU due to hypotension. CTA Ch/A/P 03/07 showing large pericardial effusion, possible exudative and L>R pleural effusion. Bedside limited echo 03/07 showing pericardial effusion and current blood pressure is 150/60. (2) Atrial fibrillation: Code(s): I48.91 - Unspecified atrial fibrillation Status: Acute Assessment and Plan: Eliquis added but held due to potential of bleeding He is on aspirin and Plavix He underwent DC Cardioversion 03/11 with congregation of sinus rhythm using 200J x 1 Tele showing he is maintaining NSR. Started oral Amiodarone (3) ST elevation (STEMI) myocardial infarction: Code(s): I21.3 - ST elevation (STEMI) myocardial infarction of unspecified site Status: Acute Assessment and Plan: Patient presents with neck pain and found to have inferior and anterolateral ST-elevation [place]. Troponin normal x3. STEMI alert and patient went for [facility]: s/p PTCA/PCI with KENYA x1 to mid RCA which was 90% blocked and was the culprit vessel. No LV gram was performed due to acute on chronic kidney disease Echo showing EF 65-70%, Patient was started on aspirin, Plavix, rosuvastatin, (4) Acute renal failure superimposed on stage 3 chronic kidney disease: Code(s): N17.9 - Acute kidney failure, unspecified; N18.30 - Chronic kidney disease, stage 3 unspecified Status: Acute Assessment and Plan: CRF stage IV creatinine 2.8 and GFR 20 Creatinine slowly improving down to 2.2 today Diuresis started (5) UTI (urinary tract infection): Code(s): N39.0 - Urinary tract infection, site not specified Status: Acute Assessment and Plan: Urine cultures and sensitivity. Proteus mirabilis Continue IV hydration. 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 The patient's blood glucose was reviewed on 03/12 Glucose better controlled Continue AccuCheks covering with sliding scale. Hypoglycemia protocol available as needed. Continue to monitor for now (7) Anemia: Code(s): D64.9 - Anemia, unspecified Status: Acute Assessment and Plan: Chronic anemia with Hgb mostly in the 8-9 range H&H 8.1/25.7. No need for transfusion will continue to monitor (8) Peripheral vascular disease: Code(s): I73.9 - Peripheral vascular disease, unspecified Status: Acute Assessment and Plan: Chronic -right BKA -dopplerable pedal pulses on the left (9) Chest pain: Code(s): R07.9 - Chest pain, unspecified Status: Acute Assessment and Plan: As above Plan Acute respiratory failure with hypoxia and hypercapnia. Repeat ABG stat improved however still confused on BiPAP. Discussed with dual rate supervisor. Transferred to ICU status. Also has worsening white out left lung discussed with IR to get thoracentesis performed which will help continue diuresis Also start steroid treatment for possible COPD flare leading to hypercapnic respiratory failure. DVT prophylaxis. left leg SCDs code status full code GI prophylaxis. PPI Code status full code dictation may have been done utilizing a voice recognition system. Attempts have been made to correct errors. However, there may be uncorrected grammatical, spelling, and recognition errors present. Subjective Date/time seen: 03/15/24 12:04 Interval history: overnight events noted. was in resp distresss, cxr with left sided white out lung. placed on bipap. patient saturation imporvd with it. patient is more
[2024-03-15 12:06] LABS: Alveolar/Arterial O2 Gradient 289.6 mmHg; Base Excess ABG -1.3 mEq/l (+/-2.0); Fractional Inspired Oxygen 55 %; HCO3 ABG 22.7 mEq/l (22.0-26.0); Oxygen Saturation ABG 93.1 % (95.0-100.0); Oxyhemoglobin 91.4 % THb (90.0-100.0); PO2 ABG 63.6 mmHg (80.0-100.0); PO2 FiO2 Ratio Arterial Blood 1.16 %; Total Hemoglobin 10.1 g/dL (12.0-18.0); pH ABG 7.429 (7.350-7.450)
[2024-03-15 12:08] LABS: Device NON-INVASIVE VENT; Modified Allen's Test Pass; Non-Invasive Expiratory Pressure 8 CMH2O; Non-Invasive Inspiratory Pressure 16 CMH2O; Non-Invasive Vent Rate 18 /MIN; Site Drawn RIGHT RADIAL
[2024-03-15] MEDS: FENTANYL 2,500MCG/NS250ML(*CRX 2,500 MCG/250 ML BAG IV CONT (12:44)
[2024-03-15] MEDS: MIDAZOLAM 100MG/NS 100ML(*CRX) 100 MG/100 ML BAG IV CONT (12:45)
--- NOTE | 2024-03-15 12:50 | WPDINTPN ---
Progress Note: A&P Assessment and Plan (1) Acute respiratory failure: Code(s): J96.00 - Acute respiratory failure, unspecified whether with hypoxia or hypercapnia Status: Acute Assessment and Plan: Acute respiratory failure likely related to large left pleural effusion, hypoxia, encephalopathy, mottling, requiring intubation. -03/15: Patient intubated due to impending respiratory failure -on CMV mode of ventilation, peep of 10, 80% FiO2 -post intubation ABGs have been ordered, will adjust ventilator once we have ABG results -low tidal volume strategy -sedated with fentanyl and Versed infusion, maintain RASS of 0 to -2, daily sedation vacation -will add bronchodilators (2) Pleural effusion, left: Code(s): J90 - Pleural effusion, not elsewhere classified Status: Acute Assessment and Plan: Large left pleural effusion -INR has been consulted for ultrasound-guided drainage, thoracentesis likely to be done today on 03/15/2025 -approved fluid labs have been ordered as hospital -have added pleural fluid Gram stain and culture (3) Encephalopathy: Code(s): G93.40 - Encephalopathy, unspecified Status: Acute Assessment and Plan: Patient encephalopathic, confused likely related to hypoxia secondary to large pleural effusion -patient currently intubated (4) Hyperkalemia: Code(s): E87.5 - Hyperkalemia Status: Acute Assessment and Plan: Patient hyperkalemic, will treat and monitor (5) ST elevation (STEMI) myocardial infarction: Code(s): I21.3 - ST elevation (STEMI) myocardial infarction of unspecified site Status: Acute Assessment and Plan: Inferior lateral ST-elevation [place] status post PTCA/PCI with KENYA x1 to mid RCA which was 90% blocked and was the culprit vessel. -no LV gram was performed due to acute on chronic kidney disease -patient was started on aspirin, Brilinta, rosuvastatin. -metoprolol and Imdur on hold due to hypotension Echocardiogram Summary ? 1. Technically difficult study with limited views. ? 2. Left ventricular chamber dimension is normal. ? 3. Left ventricular systolic function is normal, estimated at 65-70%. ? 4. There is mildly increased left ventricular wall thickness. ? 5. The left ventricular diastolic function is grade I diastolic dysfunction. ? 6. Right ventricular systolic function is normal. ? 7. There is small circumferential pericardial effusion. ? 8. There is no significant valvular disease appreciated on this study. (6) Acute renal failure superimposed on stage 3 chronic kidney disease: Code(s): N17.9 - Acute kidney failure, unspecified; N18.30 - Chronic kidney disease, stage 3 unspecified Status: Acute Assessment and Plan: Acute on chronic renal disease -creatinine on admission is 2.50 (normal creatinine is between 1.30-1.70) -patient receiving post catheterization IV fluids and creatinine is improved to 2.0 and and then levels leveled 03/07 episode of hypotension and patient also received contrast for CTA ordered by Cardiology to rule out any retroperitoneal hemorrhage after initiation of Eliquis and drop in blood pressure 03/08 creatinine increased 2.5. Patient was given 2 L of fluid bolus yesterday post CT and also is getting 500 mL of albumin 03/11 creatinine 3.1 Renal ultrasound -Bilateral cortical atrophy. Moderate right renal atrophy. Renal sinus lipomatosis. Small right pleural effusion. Nephrology is following Monitor urine output electrolytes and creatinine 03/15: Will DC sodium bicarbonate at this time, patient is hyperkalemia, will treat. Continue diuresis, creatinine trending down, continue to monitor (7) Insulin dependent type 2 diabetes mellitus: Code(s): E11.9 - Type 2 diabetes mellitus without complications; Z79.4 - shelter (current) use of insulin Status: Acute Assessment and Plan: Accu-Cheks and sliding scale insulin Will increase Lantus (8) Peripheral vascular diseas
--- NOTE | 2024-03-15 12:50 | WPDPROCEDUR ---
Procedures Intubation Intubation Date: 03/15/24 Intubation Time: 12:50 Consent: Patient with impending respiratory failure, large left pleural effusion, hypoxia, mottling noted left lower extremity, tachypnea, confused, agitated. Given these conditions I decided to intubate the patient and place him on mechanical ventilation. No family is available to make decisions. Patient's cousin was outside the room is not the POA. Patient has never been , no children. Patient has a sister who apparently has not answered her phone for a cousin. Intubation on emergent basis A pre-procedural Time-Out was completed immediately before starting the procedure and confirmed: Patient Identification, Site, Procedure, Patient Position and the Availability of Requisite Equipment: Yes Sedative: etomidate Paralytic: rocuronium Laryngoscope: fiber optic video scope Assist device used: fiber optic device ET tube size: 8 Tube secured depth (cm): 24 Tube secured location: lips Tube placement confirmation: visualized tube passing through cords, equal breath sounds bilaterally, no breath sounds over epigastrium and confirmation by capnometry Patient tolerated procedure: well Intubation complications: none
--- NOTE | 2024-03-15 12:53 | PC.NURSE ---
Spoke with Perri at [facility]. Information received for patient's sister, Lynda Nelson . Phone call placed and not answered. Message left for Ms. Nelson to call ICU ([phone]).
[2024-03-15] MEDS: methylPREDNISolone SOD SUCC 125 MG VIAL IV PUSH (13:00)
--- NOTE | 2024-03-15 13:00 | PCOTNOTE ---
Patient has a declined in status and moved to ICU. Per RN, Patient not to be seen this date, Patient will be having a procedure done and has increased O2 needs. PT spoke with MD, holding therapy services this date. Will follow up.
--- NOTE | 2024-03-15 13:10 | PC.NURSE ---
Order was placed to place PICC line on this patient. I assessed both upper extremities and saw no vessels of adequate size to support a PICC line. I spoke to Dr. Vazquez about my assessment and inability to place a PICC line on this patient.
[2024-03-15] MEDS: RAPID SEQUENCE INTUBATION KIT 1 EACH (13:21)
--- NOTE | 2024-03-15 13:39 | PM.PNCARD ---
Progress Note: A&P Assessment and Plan (1) ST elevation (STEMI) myocardial infarction: Code(s): I21.3 - ST elevation (STEMI) myocardial infarction of unspecified site Status: Acute Assessment and Plan: History of multivessel coronary disease admission to the hospital on 03/[address] underwent successful percutaneous revascularization of his mid circumflex which was technically challenging because of his extensive vascular disease and difficult vascular access. Procedure was ultimately done with a good angiographic result. Previous stented vessels in his LAD and right mid right coronary were remaining patent. He has extensive peripheral vascular disease and has undergone right lower extremity amputation. Continue clopidogrel 75 mg daily, aspirin 81 mg daily, high intensity statin (2) Atrial fibrillation with RVR: Code(s): I48.91 - Unspecified atrial fibrillation Status: Acute Assessment and Plan: S/p DCCV earlier this week. Had AF RVR earlier today but back in sinus rhythm now. Anticoagulation has been held because of anemia requiring transfusion. His H&H has improved today, however, he is having a thoracentesis this afternoon so cannot be anticoagulated now. Can consider resuming a/c if his H&H remains stable following this procedure. (3) Acute renal failure superimposed on stage 3 chronic kidney disease: Code(s): N17.9 - Acute kidney failure, unspecified; N18.30 - Chronic kidney disease, stage 3 unspecified Status: Acute Assessment and Plan: Multifactorial secondary to acute CT, hypotension, contrast exposure. SCr improved today. (4) Essential (primary) hypertension: Code(s): I10 - Essential (primary) hypertension Status: Chronic (5) Insulin dependent type 2 diabetes mellitus: Code(s): E11.9 - Type 2 diabetes mellitus without complications; Z79.4 - nursing home (current) use of insulin Status: Acute Assessment and Plan: Management per hospitalist service (6) Peripheral arterial disease: Code(s): I73.9 - Peripheral vascular disease, unspecified Status: Acute Assessment and Plan: On ASA, plavix, statin (7) Dyslipidemia: Code(s): E78.5 - Hyperlipidemia, unspecified Status: Acute Assessment and Plan: Continue high intensity statin (8) CHF (congestive heart failure): Code(s): I50.9 - Heart failure, unspecified Status: Acute Assessment and Plan: Large left pleural effusion planning thoracentesis this afternoon. Subjective Date/time seen: 03/15/24 13:39 Interval history: Follow-up visit in this 63-year-old man with diffuse coronary and peripheral arterial disease. Presented to the hospital on 03/04/2024 with some neck pain and altered mental status. STEMI was declared because of inferolateral ST segment elevation. High-grade stenosis in the trunk of the circumflex was identified and treated with PCI as detailed in the catheterization lab report. Previous LAD and right coronary stents were patent. Patient remains hospitalized was having difficulty with recurrence of atrial fibrillation last evening. This was a accompanied by hypotension requiring transfer back to the ICU. Likely this is a combination of his atrial fib other medications that were on board for hypertension. He is receiving intravenous amiodarone at this time and persisting atrial fib with heart rate 100-110. He is resting relatively comfortably upon awakening he offers no specific complaints. Date of service 03/09/2024: He was not complaining of chest pain earlier today is reported but not complaints of significant reproducible chest pain worse with deep breathing, movement, coughing or any palpation. Morphine helps. BP variable, Khanh-Synephrine held secondary to hypertension. Date of service 03/10/2024: Patient is sleepy but arousable. Feels better today. No chest pain. Breathing stable. He is off N
[2024-03-15 13:47] LABS: Alveolar/Arterial O2 Gradient 450.6 mmHg; Base Excess ABG -1.4 mEq/l (+/-2.0); Carboxyhemoglobin 0.3 % THb (0-2.0); Device VENTILATOR; Fractional Inspired Oxygen 80 %; HCO3 ABG 22.1 mEq/l (22.0-26.0); Methemoglobin ABG 0.3 %THb (0-1.5); Modified Allen's Test Pass; Oxygen Content ABG 13.6 %vol (16.0-22.0); Oxyhemoglobin 95.3 % THb (90.0-100.0); PCO2 ABG 32.4 mmHg (35.0-45.0); PO2 ABG 85.8 mmHg (80.0-100.0); PO2 FiO2 Ratio Arterial Blood 1.07 %; Reduced Hemoglobin 4.1 %THb (0-5.0); Site Drawn RIGHT RADIAL; Total Hemoglobin 10.1 g/dL (12.0-18.0); pH ABG 7.451 (7.350-7.450)
[2024-03-15 13:48] LABS: Arterial Blood Gas PEEP 10 cmH2O; Arterial Blood Gas Tidal Volume 450 ml; Arterial Blood Gas Vent Mode CMV; Arterial Blood Gas Ventilator rate 22 /MIN
[2024-03-15] MEDS: INSULIN HUMAN REGULAR (*BKC) 100 UNITS/ML 10 UNITS IV PUSH (13:53)
[2024-03-15] MEDS: SODIUM BICARBONATE 8.4% 50 MEQ/50 ML SYRINGE IV PUSH (13:53)
[2024-03-15] MEDS: DEXTROSE 50% 25 GM/50 ML SYRINGE IV PUSH (13:53)
[2024-03-15] MEDS: ALBUTEROL SULFATE NEB 2.5 MG/3 ML INH 10 MG INHALATION (14:00)
[2024-03-15] MEDS: IPRATROPIUM 0.5 MG/ALBUTEROL SULFATE 2.5 MG AMPUL.NEB 3 ML INHALATION ×3 (14:00→20:07)
[2024-03-15] MEDS: ROCURONIUM BROMIDE 50 MG/5 ML VIAL IV PUSH (14:05)
[2024-03-15] MEDS: MIDAZOLAM HCL (*CRX) 2 MG/2 ML VIAL 4 MG (14:06)
[2024-03-15] MEDS: PREGABALIN (*CRX) 75 MG CAPSULE 150 MG PO ×2 (14:24→17:39)
[2024-03-15] MEDS: CENTRAL LINE FLUSH 10 ML IV PUSH (14:53)
[2024-03-15 15:15] LABS: pH Pleural Fluid 7.366 (7.210-7.500)
[2024-03-15] MEDS: EPOETIN ALFA-EPBX 10,000 UNITS/ML VIAL 10000 UNITS SUB-Q (15:43)
[2024-03-15 16:01] LABS: Appearance Pleural Fluid Clear (Clear); Color Pleural Fluid Yellow (Colorless); Pleural fluid source Pleural fluid
[2024-03-15 16:03] LABS: Lymphocytes Pleural Fluid 3 %; Neutrophils Pleural Fluid 82 % (0-25)
[2024-03-15 16:04] LABS: Macrophages Pleural Fluid 2 %; Mesothelial Cells Pleural Flui 2 %; Monocytes Pleural Fluid 11 %
[2024-03-15 17:12] LABS: Anion Gap 8 mmol/L (4-12); Blood Urea Nitrogen 74 mg/dL (9-20); Calcium 9.2 mg/dL (8.4-10.2); Carbon Dioxide 22 mmol/L (22-30); Chloride 112 mmol/L (98-107); Estimated CRCL calculation 45 ml/min; Estimated Glomerular Filt Rate 36; Glucose 286 mg/dL (65-110); Sodium 142 mmol/L (137-145)
[2024-03-15 17:47] LABS: Glucose Point of Care 299 mg/dl (65-105)
[2024-03-15 20:00] LABS: Glucose Point of Care 309 mg/dl (65-105)
[2024-03-15] MEDS: INSULIN GLARGINE (*BKC) 100 UNITS/ML 45 UNITS SUB-Q (20:35)
[2024-03-15] MEDS: MINERAL OIL/WHITE PETROLATUM OINTMENT 1 APPLIC EACH EYE (20:41)
[2024-03-15 23:59] LABS: Glucose Point of Care 275 mg/dl (65-105)
[2024-03-16] VITALS (46 sets, daily range): BP systolic 101–173; BP diastolic 45–65; PULSE 63–85; RESP 17–22; TEMP 36.5–37.4; O2SAT 96–100
[2024-03-16] MEDS: IPRATROPIUM 0.5 MG/ALBUTEROL SULFATE 2.5 MG AMPUL.NEB 3 ML INHALATION ×3 (02:06→13:12)
[2024-03-16 04:02] LABS: Basophils Percent Auto 0.1 % (0.2-1.2); Hematocrit 24.2 % (42.0-52.0); Hemoglobin 7.6 g/dL (14.0-18.0); Immature Granulocyte Absolute 0.19 K/mm3 (0.00-0.031); Immature Granulocyte Percent A 1.2 % (0-0.5); Lymphocytes Absolute Auto 0.67 K/mm3 (0.9-3.2); Lymphocytes Percent Auto 4.3 % (18.3-44.2); Mean Corpuscular HGB Conc 31.4 g/dl (32-36); Mean Corpuscular Hemoglobin 28.8 pg (26-34); Mean Corpuscular Volume 91.7 fl (80-100); Mean Platelet Volume 11.7 fl (7.4-10.4); Monocytes Absolute Auto 0.5 K/mm3 (0.1-0.6); Monocytes Percent Auto 3.3 % (2.6-8.5); Neutrophils Absolute Auto 14.2 K/mm3 (1.3-6.7); Neutrophils Percent Auto 91.1 % (45.5-73.1); Nucleated Red Blood Cells Perc 0.2 % (0.0-0.2); Platelet Count Result 278 k/mm3 (150-375); Red Blood Count 2.64 M/mm3 (4.6-6.20); Red Cell Distribution Width 17.5 % (11.5-14.5); White Blood Count 15.6 K/mm3 (4.5-10.0)
[2024-03-16 04:16] LABS: Alanine Aminotransferase 30 U/L (6-50); Albumin Level 3.1 g/dL (3.5-5.1); Alkaline Phosphatase 145 U/L (38-126); Anion Gap 5 mmol/L (4-12); Aspartate Amino Transferase 19 U/L (17-59); Bilirubin,Total 0.4 mg/dL (0.2-1.3); Blood Urea Nitrogen 75 mg/dL (9-20); Calcium 8.9 mg/dL (8.4-10.2); Carbon Dioxide 28 mmol/L (22-30); Chloride 110 mmol/L (98-107); Estimated CRCL calculation 45 ml/min; Estimated Glomerular Filt Rate 36; Glucose 255 mg/dL (65-110); Magnesium 2.6 mg/dL (1.6-2.3); Potassium 4.4 mmol/L (3.4-5.0); Sodium 143 mmol/L (137-145)
[2024-03-16 04:22] LABS: Hypochromasia 1+; Platelet Estimate Adequate (Adequate); Polychromasia 1+; Schistocytes None Seen; Target Cells 1+
[2024-03-16 04:31] LABS: Procalcitonin 0.5 ng/mL
[2024-03-16 05:32] LABS: Alveolar/Arterial O2 Gradient 222.2 mmHg; Base Excess ABG 2.7 mEq/l (+/-2.0); Carboxyhemoglobin 0.2 % THb (0-2.0); Fractional Inspired Oxygen 50 %; HCO3 ABG 27.2 mEq/l (22.0-26.0); Methemoglobin ABG 0.2 %THb (0-1.5); Oxygen Content ABG 12.6 %vol (16.0-22.0); Oxygen Saturation ABG 96.9 % (95.0-100.0); Oxyhemoglobin 95.1 % THb (90.0-100.0); PCO2 ABG 41.5 mmHg (35.0-45.0); PO2 ABG 87.6 mmHg (80.0-100.0); PO2 FiO2 Ratio Arterial Blood 1.75 %; Reduced Hemoglobin 4.5 %THb (0-5.0); Total Hemoglobin 9.3 g/dL (12.0-18.0); pH ABG 7.434 (7.350-7.450)
[2024-03-16 05:34] LABS: Device VENTILATOR; Modified Allen's Test Pass; Site Drawn RIGHT RADIAL
[2024-03-16 05:35] LABS: Arterial Blood Gas PEEP 10 cmH2O; Arterial Blood Gas Tidal Volume 450 ml; Arterial Blood Gas Vent Mode CMV; Arterial Blood Gas Ventilator rate 20 /MIN
[2024-03-16] MEDS: FENTANYL 2,500MCG/NS250ML(*CRX 2,500 MCG/250 ML BAG 15 MCG IV CONT (05:35)
[2024-03-16] MEDS: INSULIN ASPART (*BKC) 100 UNITS/ML SUB-Q ×3 (05:54→11:59)
[2024-03-16 06:07] LABS: Glucose Point of Care 262 mg/dl (65-105)
[2024-03-16] MEDS: FLUTICASONE/SALMETEROL 115-21 MCG INHALER 1 PUFF 2 PUFF INHALATION (07:33)
[2024-03-16] MEDS: PREGABALIN (*CRX) 75 MG CAPSULE 150 MG PO ×3 (07:53→17:04)
[2024-03-16] MEDS: ROSUVASTATIN 10 MG TABLET 20 MG PO (07:54)
[2024-03-16] MEDS: CLOPIDOGREL BISULFATE 75 MG TABLET PO (07:54)
[2024-03-16] MEDS: FUROSEMIDE INJ 40 MG/4 ML VIAL 20 MG IV PUSH ×2 (07:54→17:04)
[2024-03-16] MEDS: TAMSULOSIN HCL 0.4 MG CAPSULE PO (07:54)
[2024-03-16] MEDS: guaiFENesin 12 HR 600 MG TABCR 1200 MG PO (07:54)
[2024-03-16] MEDS: buPROPion HCL SR (12HR) 100 MG TABCR PO (07:54)
[2024-03-16] MEDS: AMIODARONE HCL 200 MG TABLET 400 MG PO (07:54)
[2024-03-16] MEDS: MINERAL OIL/WHITE PETROLATUM OINTMENT 1 APPLIC EACH EYE ×2 (07:55→20:22)
[2024-03-16] MEDS: INSULIN GLARGINE (*BKC) 100 UNITS/ML 60 UNITS SUB-Q ×2 (07:57→20:26)
[2024-03-16] MEDS: PANTOPRAZOLE SODIUM IV 40 MG VIAL IV PUSH ×2 (07:58→20:21)
[2024-03-16] MEDS: ASPIRIN 81 MG CHEWABLE TABLET PO (07:58)
[2024-03-16] MEDS: AZTREONAM 2 GM in SODIUM CHLORIDE 0.9% IV 100 ML 200 ML IVPB ×2 (07:58→17:03)
--- NOTE | 2024-03-16 08:10 | WPDINTPN ---
Progress Note: A&P Assessment and Plan (1) Acute respiratory failure: Code(s): J96.00 - Acute respiratory failure, unspecified whether with hypoxia or hypercapnia Status: Acute Assessment and Plan: Acute respiratory failure likely related to large left pleural effusion, hypoxia, encephalopathy, mottling, requiring intubation. -03/15: Patient intubated due to impending respiratory failure -on CMV mode of ventilation, peep of 10, 80% FiO2 -low tidal volume strategy -sedated with fentanyl and Versed infusion, maintain RASS of 0 to -2, daily sedation vacation -continue bronchodilators -chest x-ray this morning and ABGs reviewed, ventilator adjusted -will obtain CT scan of the chest to rule out pneumonia, as chest x-ray showed consolidation -03/16: Will start patient on vancomycin, aztreonam, Flagyl -03/16: Blood cultures have been obtained -03/16: Sputum and urine cultures have been obtained (2) Pleural effusion, left: Code(s): J90 - Pleural effusion, not elsewhere classified Status: Acute Assessment and Plan: Large left pleural effusion -03/15: Left thoracentesis with drainage of 500 mL of yellowish fluid -pleural fluid labs are pending -pleural fluid Gram stain and cultures are pending -antibiotics as above (3) Encephalopathy: Code(s): G93.40 - Encephalopathy, unspecified Status: Acute Assessment and Plan: Patient encephalopathic, confused likely related to hypoxia secondary to large pleural effusion -patient currently intubated (4) Hyperkalemia: Code(s): E87.5 - Hyperkalemia Status: Acute Assessment and Plan: 03/16: Resolved Patient was hyperkalemic on readmission to the ICU on 03/15, was treated with insulin and, D50, albuterol, bicarb (5) ST elevation (STEMI) myocardial infarction: Code(s): I21.3 - ST elevation (STEMI) myocardial infarction of unspecified site Status: Acute Assessment and Plan: Inferior lateral ST-elevation [place] status post PTCA/PCI with KENYA x1 to mid RCA which was 90% blocked and was the culprit vessel. -no LV gram was performed due to acute on chronic kidney disease -continue aspirin, Plavix, rosuvastatin. -cardiology following the patient Echocardiogram Summary ? 1. Technically difficult study with limited views. ? 2. Left ventricular chamber dimension is normal. ? 3. Left ventricular systolic function is normal, estimated at 65-70%. ? 4. There is mildly increased left ventricular wall thickness. ? 5. The left ventricular diastolic function is grade I diastolic dysfunction. ? 6. Right ventricular systolic function is normal. ? 7. There is small circumferential pericardial effusion. ? 8. There is no significant valvular disease appreciated on this study. (6) Acute renal failure superimposed on stage 3 chronic kidney disease: Code(s): N17.9 - Acute kidney failure, unspecified; N18.30 - Chronic kidney disease, stage 3 unspecified Status: Acute Assessment and Plan: Acute on chronic renal disease -creatinine on admission is 2.50 (normal creatinine is between 1.30-1.70) -patient receiving post catheterization IV fluids and creatinine is improved to 2.0 and and then levels leveled 03/07 episode of hypotension and patient also received contrast for CTA ordered by Cardiology to rule out any retroperitoneal hemorrhage after initiation of Eliquis and drop in blood pressure 03/08 creatinine increased 2.5. Patient was given 2 L of fluid bolus yesterday post CT and also is getting 500 mL of albumin 03/11 creatinine 3.1 03/09: Renal ultrasound -Bilateral cortical atrophy. Moderate right renal atrophy. Renal sinus lipomatosis. Small right pleural effusion. Nephrology is following Monitor urine output electrolytes and creatinine 03/15: Will DC sodium bicarbonate at this time, patient is hyperkalemia, will treat. Continue diuresis, creatinine trending down, continue to monitor -good urine output in response to diuresi
[2024-03-16 08:47] LABS: Add Urine Microscopic? YES; Appearance Urine Cloudy (Clear); Bacteria Urine None Seen /hpf; Bilirubin Urine Negative (Negative); Blood Urine Negative (Negative); Color Urine Yellow (Yellow); Glucose Urine UA Negative (Negative); Ketones Urine Negative (Negative); Leukocyte Esterase Ur 1+ LEU/UL (Negative); Nitrate Urine Negative (Negative); Protein Urine Negative (Negative); RBC Urine 0-2 /hpf (0-2); Specific Grav Ur 1.016 (1.001-1.035); Squamous Epithelial Cell Urine None Seen /hpf (Few); Uric Acid Crystals Urine Present /hpf; Urobilinogen Urine 0.2 mg/dL (<2.0); pH Urine 5.5 (5.0-9.0)
[2024-03-16] MEDS: VANCOMYCIN 1,250 MG/NS 250 ML 1,250 MG/250 ML BAG 166.67 MG IVPB ×2 (09:17→09:18)
[2024-03-16] MEDS: metroNIDAZOLE 500 MG/ISO 100ML 500 MG/100 ML BAG 100 MG IVPB ×2 (09:23→17:03)
[2024-03-16 09:31] LABS: Glucose Point of Care 243 mg/dl (65-105)
[2024-03-16 09:46] LABS: MRSA (PCR) DETECTED (NOT DETECTE)
--- NOTE | 2024-03-16 10:35 | PM.PNCARD ---
Progress Note: A&P Assessment and Plan (1) ST elevation (STEMI) myocardial infarction: Code(s): I21.3 - ST elevation (STEMI) myocardial infarction of unspecified site Status: Acute Assessment and Plan: History of multivessel coronary disease admission to the hospital on 03/[address] elevation [place] underwent successful percutaneous revascularization of his mid circumflex which was technically challenging because of his extensive vascular disease and difficult vascular access. Procedure was ultimately done with a good angiographic result. Previous stented vessels in his LAD and right mid right coronary were remaining patent. He has extensive peripheral vascular disease and has undergone right lower extremity amputation. Continue clopidogrel 75 mg daily, aspirin 81 mg daily, high intensity statin (2) Atrial fibrillation with RVR: Code(s): I48.91 - Unspecified atrial fibrillation Status: Acute Assessment and Plan: S/p DCCV earlier this week. Had AF RVR earlier today but back in sinus rhythm now. Anticoagulation has been held because of anemia requiring transfusion. Can consider resuming a/c if his H&H remains stable following this procedure. (3) Acute renal failure superimposed on stage 3 chronic kidney disease: Code(s): N17.9 - Acute kidney failure, unspecified; N18.30 - Chronic kidney disease, stage 3 unspecified Status: Acute Assessment and Plan: Multifactorial secondary to acute MA, hypotension, contrast exposure. SCr today 1.9 (4) Essential (primary) hypertension: Code(s): I10 - Essential (primary) hypertension Status: Chronic (5) Insulin dependent type 2 diabetes mellitus: Code(s): E11.9 - Type 2 diabetes mellitus without complications; Z79.4 - skilled nursing (current) use of insulin Status: Acute Assessment and Plan: Management per hospitalist service (6) Peripheral arterial disease: Code(s): I73.9 - Peripheral vascular disease, unspecified Status: Acute Assessment and Plan: On ASA, plavix, statin (7) Dyslipidemia: Code(s): E78.5 - Hyperlipidemia, unspecified Status: Acute Assessment and Plan: Continue high intensity statin (8) CHF (congestive heart failure): Code(s): I50.9 - Heart failure, unspecified Status: Acute Assessment and Plan: Status post thoracentesis yesterday Subjective Date/time seen: 03/16/24 10:35 Interval history: Follow-up visit in this 63-year-old man with diffuse coronary and peripheral arterial disease. Presented to the hospital on 03/04/2024 with some neck pain and altered mental status. STEMI was declared because of inferolateral ST segment elevation. High-grade stenosis in the trunk of the circumflex was identified and treated with PCI as detailed in the catheterization lab report. Previous LAD and right coronary stents were patent. Patient remains hospitalized was having difficulty with recurrence of atrial fibrillation last evening. This was a accompanied by hypotension requiring transfer back to the ICU. Likely this is a combination of his atrial fib other medications that were on board for hypertension. He is receiving intravenous amiodarone at this time and persisting atrial fib with heart rate 100-110. He is resting relatively comfortably upon awakening he offers no specific complaints. Date of service 03/09/2024: He was not complaining of chest pain earlier today is reported but not complaints of significant reproducible chest pain worse with deep breathing, movement, coughing or any palpation. Morphine helps. BP variable, Khanh-Synephrine held secondary to hypertension. Date of service 03/10/2024: Patient is sleepy but arousable. Feels better today. No chest pain. Breathing stable. He is off Khanh-Synephrine. BP much more stable. Remains tachycardic in AFib with RVR heart rates 120s on average. Date of service 03/11/2024: The patient is h
--- NOTE | 2024-03-16 11:00 | WPDPROCEDUR ---
Procedures Central Line Placement Right IJ: Central Line Date: 03/16/24 Central Line Time: 11:00 Performed Emergently - Given emergent patient condition, temporal constraints may have precluded informed consent.: Yes Time Out Performed: Yes Patient Position: supine Patient placed on monitor/pulse ox: Yes Provider Prep: mask, sterile gown, sterile gloves, Max. sterile barrier precautions and hand hygiene with conventional soap/water or alcohol based hand rub Central line prep: 2% Chlorhexidine scrub Local anesthesia used: lidocaine 1% Sterile US Technique with sterile gel/sterile probe covers: Yes Central line lumen inserted: triple German: 7 Length (cm): 16 Depth of Insertion (cm): 16 Post Procedure: sutured in place, good blood return, all ports aspirated, flushed, capped, transparent dressing, hemostatic product, antimicrobial product, securement product and aseptic technique maintained throughout procedure Post procedure x-ray: tip of catheter in good position and no pneumothorax seen Patient tolerated procedure: well and no complications Complications: none
--- NOTE | 2024-03-16 11:03 | PM.PNNEP ---
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(?) cannot r/o an element of CKD progression second insult likely due to fluctuating hypotension/hemodynamic instability fluctuating H/H Afib with RVR contrast (cardiac cath + CT scan) UTI evaluation to date noted: urine eosinophil negative urine electrolytes prerenal mild proteinuria CPK normal renal ultrasound c/w CKD follow trend of repeat labs and UOP (2) Chronic kidney disease, stage 3: Code(s): N18.3 - Chronic kidney disease, stage 3 (moderate) Status: Chronic Assessment and Plan: baseline creatinine seems to run ~ 1.4 - 1.7mg/dl this would cause him to fluctuate between CKD stage 3A and stage 3B likely secondary to hypertension, diabetes, severe vascular disease (CAD + PAD + hyperlipidemia), and age (3) Hyperkalemia: Code(s): E87.5 - Hyperkalemia Status: Acute Assessment and Plan: improvement noted presumably due to #1 off lokelma follow repeat K+ levels (4) Acute respiratory failure: Code(s): J96.00 - Acute respiratory failure, unspecified whether with hypoxia or hypercapnia Status: Acute Assessment and Plan: suspect multifactorial etiology: large left pleural effusion/ whiteout of left hemithorax hypoxia AMS/encephalopathy intubated on 03/15/24 initiated on broad spectrum antibiotics diuresis as tolerated (on IV lasix) follow culture data continue bronchodilator therapy (5) Pleural effusion, left: Code(s): J90 - Pleural effusion, not elsewhere classified Status: Acute Assessment and Plan: as noted by recent CXR contributing component to #4 s/p left thoracentesis by IR on 03/15/24 follow-up on pleural fluid studies/analysis on antibiotics as noted (6) ST elevation (STEMI) myocardial infarction: Code(s): I21.3 - ST elevation (STEMI) myocardial infarction of unspecified site Status: Acute Assessment and Plan: admission EKG showed inferior lateral ST-elevation [place] s/p cardiac cath with PTCA/PCI with KENYA x 1 to mid RCA which was 90% blocked no LV gram was performed due to renal dysfunction Cardiology following Echo results noted remains on DAPT and statin (7) Atrial fibrillation: Code(s): I48.91 - Unspecified atrial fibrillation Status: Acute Assessment and Plan: on amiodarone s/p cardioversion on 03/11 on anticoagulation Cardiology following (8) Anemia: Code(s): D64.9 - Anemia, unspecified Status: Acute Assessment and Plan: due in part to CKD and acute illness follow trend of H/H started Epogen while hospitalized givern renal dysfunction (9) UTI (urinary tract infection): Code(s): N39.0 - Urinary tract infection, site not specified Status: Acute Assessment and Plan: urine culture with Proteus completed 7 day course of antibiotics (10) Insulin dependent type 2 diabetes mellitus: Code(s): E11.9 - Type 2 diabetes mellitus without complications; Z79.4 - terminal make up operator (current) use of insulin Status: Acute Assessment and Plan: follow accu-cheks glycemic control per 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 Subjective Date/time seen: 03/16/24 11:03 Interval history: Follow-up for acute kidney injury/acute renal failure on chronic kidney disease. Intubated yesterday due to impending respiratory failure -- remains intubated/sedated and on mechanical ventilatin at this time; good urine output in response to IV diuretics yesterday; s/p left thoracentesis yesterday as well; remains hemodynamically stable without the need for vasopressor support; results of CT of head/c
--- NOTE | 2024-03-16 11:03 | P.PNNP_ITS ---
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 * prerenal factors(?) * cannot r/o an element of CKD progression * second insult likely due to * fluctuating hypotension/hemodynamic instability * fluctuating H/H * Afib with RVR * contrast (cardiac cath + CT scan) * UTI * evaluation to date noted: * urine eosinophil negative * urine electrolytes prerenal * mild proteinuria * CPK normal * renal ultrasound c/w CKD * follow trend of repeat labs and UOP (2) Chronic kidney disease, stage 3: Code(s): N18.3 - Chronic kidney disease, stage 3 (moderate) Status: Chronic Assessment and Plan: * baseline creatinine seems to run ~ 1.4 - 1.7mg/dl * this would cause him to fluctuate between CKD stage 3A and stage 3B * likely secondary to hypertension, diabetes, severe vascular disease (CAD + PAD + hyperlipidemia), and age (3) Hyperkalemia: Code(s): E87.5 - Hyperkalemia Status: Acute Assessment and Plan: * improvement noted * presumably due to #1 * off lokelma * follow repeat K+ levels (4) Acute respiratory failure: Code(s): J96.00 - Acute respiratory failure, unspecified whether with hypoxia or hypercapnia Status: Acute Assessment and Plan: * suspect multifactorial etiology: * large left pleural effusion/ whiteout of left hemithorax * hypoxia * AMS/encephalopathy * intubated on 03/15/24 * initiated on broad spectrum antibiotics * diuresis as tolerated (on IV lasix) * follow culture data * continue bronchodilator therapy (5) Pleural effusion, left: Code(s): J90 - Pleural effusion, not elsewhere classified Status: Acute Assessment and Plan: * as noted by recent CXR * contributing component to #4 * s/p left thoracentesis by IR on 03/15/24 * follow-up on pleural fluid studies/analysis * on antibiotics as noted (6) ST elevation (STEMI) myocardial infarction: Code(s): I21.3 - ST elevation (STEMI) myocardial infarction of unspecified site Status: Acute Assessment and Plan: * admission EKG showed inferior lateral ST-elevation [place] * s/p cardiac cath with PTCA/PCI with KENYA x 1 to mid RCA which was 90% blocked * no LV gram was performed due to renal dysfunction * Cardiology following * Echo results noted * remains on DAPT and statin (7) Atrial fibrillation: Code(s): I48.91 - Unspecified atrial fibrillation Status: Acute Assessment and Plan: * on amiodarone * s/p cardioversion on 03/11 * on anticoagulation * Cardiology following (8) Anemia: Code(s): D64.9 - Anemia, unspecified Status: Acute Assessment and Plan: * due in part to CKD and acute illness * follow trend of H/H * started Epogen while hospitalized givern renal dysfunction (9) UTI (urinary tract infection): Code(s): N39.0 - Urinary tract infection, site not specified Status: Acute Assessment and Plan: * urine culture with Proteus * completed 7 day course of antibiotics (10) Insulin dependent type 2 diabetes mellitus: Code(s): E11.9 - Type 2 diabetes mellitus without complications; Z79.4 - detention (current) use of insulin Status: Acute Assessment and Plan: * follow accu-
[2024-03-16] MEDS: MIDAZOLAM 100MG/NS 100ML(*CRX) 100 MG/100 ML BAG IV CONT (12:10)
[2024-03-16 12:15] LABS: Glucose Point of Care 223 mg/dl (65-105)
--- NOTE | 2024-03-16 13:52 | PM.IMPN ---
Progress Note: A&P Assessment and Plan (1) Hypotension: Code(s): I95.9 - Hypotension, unspecified Status: Acute Assessment and Plan: Patient developed low BP on 03/07 and transferred to ICU due to hypotension. CTA Ch/A/P 03/07 showing large pericardial effusion, possible exudative and L>R pleural effusion. Bedside limited echo 03/[address] chest with large pericardial effusion. (2) Atrial fibrillation: Code(s): I48.91 - Unspecified atrial fibrillation Status: Acute Assessment and Plan: Eliquis added but held due to potential of bleeding He is on aspirin and Plavix He underwent DC Cardioversion 03/11 with roman catholic of sinus rhythm using 200J x 1 Tele showing he is maintaining NSR. Started oral Amiodarone (3) ST elevation (STEMI) myocardial infarction: Code(s): I21.3 - ST elevation (STEMI) myocardial infarction of unspecified site Status: Acute Assessment and Plan: Patient presents with neck pain and found to have inferior and anterolateral ST-elevation [place]. Troponin normal x3. STEMI alert and patient went for [facility]: s/p PTCA/PCI with KENYA x1 to mid RCA which was 90% blocked and was the culprit vessel. No LV gram was performed due to acute on chronic kidney disease Echo showing EF 65-70%, Patient was started on aspirin, Plavix, rosuvastatin, (4) Acute renal failure superimposed on stage 3 chronic kidney disease: Code(s): N17.9 - Acute kidney failure, unspecified; N18.30 - Chronic kidney disease, stage 3 unspecified Status: Acute Assessment and Plan: CRF stage IV creatinine 2.8 and GFR 20 Creatinine slowly improving down to 2.2 today Diuresis started Nephrology following (5) UTI (urinary tract infection): Code(s): N39.0 - Urinary tract infection, site not specified Status: Acute Assessment and Plan: Urine cultures and sensitivity. Proteus mirabilis Continue IV hydration. Monitor CBC CMP Monitor vital signs Continue Aztreonam (6) Insulin dependent type 2 diabetes mellitus: Code(s): E11.9 - Type 2 diabetes mellitus without complications; Z79.4 - keno terminal operator (current) use of insulin Status: Acute Assessment and Plan: A1c 8.0. The patient's blood glucose was reviewed on 03/12 Glucose better controlled Continue AccuCheks covering with sliding scale. Hypoglycemia protocol available as needed. Continue to monitor for now (7) Anemia: Code(s): D64.9 - Anemia, unspecified Status: Acute Assessment and Plan: Chronic anemia with Hgb mostly in the 8-9 range H&H 8.1/25.7. No need for transfusion will continue to monitor (8) Peripheral vascular disease: Code(s): I73.9 - Peripheral vascular disease, unspecified Status: Acute Assessment and Plan: Chronic -right BKA -dopplerable pedal pulses on the left (9) Chest pain: Code(s): R07.9 - Chest pain, unspecified Status: Acute Assessment and Plan: As above Plan Acute respiratory failure with hypoxia and hypercapnia. Repeat ABG stat improved however still confused on BiPAP. Intubated 03/15/2024. CT chest to with pneumonia started on vancomycin aztreonam and Flagyl. Follow cultures Encephalopathy confusion could be from hypoxia. CT head was negative Large left pleural effusion status post thoracentesis with removal of 500 cc of pleural fluid DVT prophylaxis. left leg SCDs code status full code GI prophylaxis. PPI Code status full code dictation may have been done utilizing a voice recognition system. Attempts have been made to correct errors. However, there may be uncorrected grammatical, spelling, and recognition errors present. Subjective Date/time seen: 03/16/24 13:52 Interval history: Patient intubated yesterday and placed on mechanical ventilation. Thoracentesis was performed with removal of [address] chest abdo
[2024-03-16] MEDS: CENTRAL LINE FLUSH 10 ML IV PUSH ×2 (14:22→20:38)
[2024-03-16 17:17] LABS: Glucose Point of Care 152 mg/dl (65-105)
[2024-03-16 20:00] LABS: Glucose Point of Care 177 mg/dl (65-105)
[2024-03-16] MEDS: SENNA/DOCUSATE SODIUM TABLET 1 TAB PO (20:22)
[2024-03-17] VITALS (47 sets, daily range): BP systolic 121–190; BP diastolic 43–82; PULSE 65–80; RESP 14–22; TEMP 36.1–37.6; O2SAT 96–99
[2024-03-17 00:03] LABS: Glucose Point of Care 187 mg/dl (65-105)
[2024-03-17] MEDS: metroNIDAZOLE 500 MG/ISO 100ML 500 MG/100 ML BAG 100 MG IVPB ×3 (00:27→16:03)
[2024-03-17] MEDS: AZTREONAM 2 GM in SODIUM CHLORIDE 0.9% IV 100 ML 200 ML IVPB ×3 (00:31→16:04)
[2024-03-17] MEDS: INSULIN ASPART (*BKC) 100 UNITS/ML SUB-Q ×2 (04:22→08:21)
[2024-03-17 04:23] LABS: Glucose Point of Care 211 mg/dl (65-105)
[2024-03-17 05:11] LABS: Alveolar/Arterial O2 Gradient 152.8 mmHg; Base Excess ABG 2.9 mEq/l (+/-2.0); Carboxyhemoglobin 0.2 % THb (0-2.0); Fractional Inspired Oxygen 40 %; HCO3 ABG 27.7 mEq/l (22.0-26.0); Methemoglobin ABG 0.1 %THb (0-1.5); Oxygen Content ABG 12.7 %vol (16.0-22.0); Oxygen Saturation ABG 96.3 % (95.0-100.0); PCO2 ABG 43.6 mmHg (35.0-45.0); PO2 ABG 82.3 mmHg (80.0-100.0); PO2 FiO2 Ratio Arterial Blood 2.06 %; Reduced Hemoglobin 5.7 %THb (0-5.0); Total Hemoglobin 9.5 g/dL (12.0-18.0); pH ABG 7.421 (7.350-7.450)
[2024-03-17 05:12] LABS: Device VENTILATOR; Modified Allen's Test Pass; Site Drawn RIGHT RADIAL
[2024-03-17 05:13] LABS: Arterial Blood Gas PEEP 8 cmH2O; Arterial Blood Gas Tidal Volume 450 ml; Arterial Blood Gas Vent Mode CMV; Arterial Blood Gas Ventilator rate 20 /MIN
[2024-03-17 06:17] LABS: Basophils Percent Auto 0.1 % (0.2-1.2); Eosinophils Percent Auto 0.1 % (0-4.4); Hematocrit 26.3 % (42.0-52.0); Hemoglobin 7.8 g/dL (14.0-18.0); Immature Granulocyte Absolute 0.13 K/mm3 (0.00-0.031); Immature Granulocyte Percent A 0.8 % (0-0.5); Lymphocytes Absolute Auto 2.28 K/mm3 (0.9-3.2); Lymphocytes Percent Auto 14.4 % (18.3-44.2); Mean Corpuscular HGB Conc 29.7 g/dl (32-36); Mean Corpuscular Hemoglobin 28.2 pg (26-34); Mean Corpuscular Volume 94.9 fl (80-100); Mean Platelet Volume 11.2 fl (7.4-10.4); Monocytes Absolute Auto 0.9 K/mm3 (0.1-0.6); Monocytes Percent Auto 5.5 % (2.6-8.5); Neutrophils Absolute Auto 12.6 K/mm3 (1.3-6.7); Neutrophils Percent Auto 79.1 % (45.5-73.1); Nucleated Red Blood Cells Perc 0.1 % (0.0-0.2); Platelet Count Result 293 k/mm3 (150-375); Red Blood Count 2.77 M/mm3 (4.6-6.20); Red Cell Distribution Width 17.8 % (11.5-14.5); White Blood Count 15.9 K/mm3 (4.5-10.0)
[2024-03-17 06:35] LABS: Alanine Aminotransferase 23 U/L (6-50); Alkaline Phosphatase 129 U/L (38-126); Anion Gap 3 mmol/L (4-12); Aspartate Amino Transferase 20 U/L (17-59); Bilirubin,Total 0.4 mg/dL (0.2-1.3); Blood Urea Nitrogen 77 mg/dL (9-20); Carbon Dioxide 31 mmol/L (22-30); Chloride 115 mmol/L (98-107); Estimated CRCL calculation 52 ml/min; Estimated Glomerular Filt Rate 41; Glucose 203 mg/dL (65-110); Lipase 56 U/L (23-300); Magnesium 2.3 mg/dL (1.6-2.3); Potassium 4.2 mmol/L (3.4-5.0); Sodium 149 mmol/L (137-145)
[2024-03-17 06:37] LABS: Platelet Estimate Adequate (Adequate); Schistocytes None Seen
[2024-03-17 06:38] LABS: Hypochromasia 2+; INR 1.3; Prothrombin Time 17.4 Seconds (11.1-14.7); Stomatocytes 1+; Target Cells 1+
[2024-03-17 06:39] LABS: Partial Thromboplastin Time 31.3 Seconds (22.3-36.8)
[2024-03-17] MEDS: CENTRAL LINE FLUSH 10 ML IV PUSH ×3 (06:45→22:27)
[2024-03-17 06:50] LABS: CRP 14.2 mg/dL (<1.0)
--- NOTE | 2024-03-17 07:41 | WPDINTPN ---
Progress Note: A&P Assessment and Plan (1) Acute respiratory failure: Code(s): J96.00 - Acute respiratory failure, unspecified whether with hypoxia or hypercapnia Status: Acute Assessment and Plan: Acute respiratory failure likely related to large left pleural effusion, hypoxia, encephalopathy, mottling, requiring intubation. -03/15: Patient intubated due to impending respiratory failure -on CMV mode of ventilation, peep of 8, 40% FiO2 -low tidal volume strategy -sedated with fentanyl and Versed infusion, maintain RASS of 0 to -2, daily sedation vacation -continue bronchodilators -chest x-ray this morning and ABGs reviewed, -continue diuresis -continue vancomycin, aztreonam, Flagyl (03/16) -03/16: Blood cultures pending -03/16: Sputum cultures pending -03/16: Urine cultures pending 03/16/2024: CT chest/Abdomen/Pelvis non contrast IMPRESSION: 1. Lines and tubes in expected position. 2. Persistent consolidation in the left mid to lower lung zone correspond to a small left pleural effusion and associated atelectasis on prior CT. Superimposed pneumonia not excludable. 3. Increasing pulmonary vascular congestion with indistinct interstitial and hazy airspace opacity right mid to lower lung zone likely combination of mild pulmonary edema or pneumonia superimposed over a small to moderate-sized right pleural effusion which is much better appreciated on prior CT. 4. Large cardiac silhouette on prior CT correspond to a large pericardial effusion. (2) Pleural effusion, left: Code(s): J90 - Pleural effusion, not elsewhere classified Status: Acute Assessment and Plan: Large left pleural effusion -03/15: Left thoracentesis with drainage of 500 mL of yellowish fluid -pleural fluid labs are pending -pleural fluid Gram stain did not show any organisms, pleural fluid culture no growth so far -antibiotics as above (3) Acute renal failure superimposed on stage 3 chronic kidney disease: Code(s): N17.9 - Acute kidney failure, unspecified; N18.30 - Chronic kidney disease, stage 3 unspecified Status: Acute Assessment and Plan: Acute on chronic renal disease -creatinine on admission is 2.50 (normal creatinine is between 1.30-1.70) -patient receiving post catheterization IV fluids and creatinine is improved to 2.0 and and then levels leveled / episode of hypotension and patient also received contrast for CTA ordered by Cardiology to rule out any retroperitoneal hemorrhage after initiation of Eliquis and drop in blood pressure 03/08 creatinine increased 2.5. Patient was given 2 L of fluid bolus yesterday post CT and also is getting 500 mL of albumin 03/11 creatinine 3.1 03/09: Renal ultrasound -Bilateral cortical atrophy. Moderate right renal atrophy. Renal sinus lipomatosis. Small right pleural effusion. Nephrology is following Monitor urine output electrolytes and creatinine 03/15: Will DC sodium bicarbonate at this time, patient is hyperkalemia, will treat. Continue diuresis, creatinine trending down, continue to monitor -good urine output in response to diuresis, negative fluid balance in the last 24 hours, continue diuresis. Creatinine gradually improving, 1.70 this morning (4) Hypernatremia: Code(s): E87.0 - Hyperosmolality and hypernatremia Status: Acute Assessment and Plan: : Sodium levels of 149, will increase tube feed flushes, likely related to diuretics (5) Hyperkalemia: Code(s): E87.5 - Hyperkalemia Status: Acute Assessment and Plan: 03/16: Resolved Continue to monitor (6) ST elevation (STEMI) myocardial infarction: Code(s): I21.3 - ST elevation (STEMI) myocardial infarction of unspecified site Status: Acute Assessment and Plan: Inferior lateral ST-elevation OR status post PTCA/PCI with KENYA x1 to mid RCA which was 90% blocked and was the culprit vessel. -no LV gram was performed due to acute on chronic kidney disease -cont
[2024-03-17] MEDS: FENTANYL 2,500MCG/NS250ML(*CRX 2,500 MCG/250 ML BAG 10 MCG IV CONT (08:00)
[2024-03-17] MEDS: IPRATROPIUM 0.5 MG/ALBUTEROL SULFATE 2.5 MG AMPUL.NEB 3 ML INHALATION ×3 (08:02→19:59)
[2024-03-17] MEDS: guaiFENesin 12 HR 600 MG TABCR 1200 MG PO ×2 (08:09→20:06)
[2024-03-17] MEDS: MINERAL OIL/WHITE PETROLATUM OINTMENT 1 APPLIC EACH EYE ×2 (08:09→20:05)
[2024-03-17] MEDS: FUROSEMIDE INJ 40 MG/4 ML VIAL IV PUSH ×2 (08:09→20:05)
[2024-03-17] MEDS: PREGABALIN (*CRX) 75 MG CAPSULE 150 MG PO ×3 (08:09→16:03)
[2024-03-17] MEDS: ASPIRIN 81 MG CHEWABLE TABLET PO (08:10)
[2024-03-17] MEDS: AMIODARONE HCL 200 MG TABLET 400 MG PO (08:10)
[2024-03-17] MEDS: ROSUVASTATIN 10 MG TABLET 20 MG PO (08:10)
[2024-03-17] MEDS: CLOPIDOGREL BISULFATE 75 MG TABLET PO (08:11)
[2024-03-17] MEDS: polyethylene glycoL 3350 17 GM POWD.PACK PO (08:11)
[2024-03-17] MEDS: PANTOPRAZOLE SODIUM IV 40 MG VIAL IV PUSH ×2 (08:13→20:05)
[2024-03-17] MEDS: buPROPion HCL SR (12HR) 100 MG TABCR PO (08:16)
[2024-03-17] MEDS: INSULIN GLARGINE (*BKC) 100 UNITS/ML 60 UNITS SUB-Q ×2 (08:21→20:12)
[2024-03-17] MEDS: VANCOMYCIN 1,500 MG/NS 500 ML 1,500 MG/500 ML BAG 250 MG IVPB (08:40)
[2024-03-17 08:41] LABS: Glucose Point of Care 204 mg/dl (65-105)
--- NOTE | 2024-03-17 08:42 | PM.PNCARD ---
Progress Note: A&P Assessment and Plan (1) ST elevation (STEMI) myocardial infarction: Code(s): I21.3 - ST elevation (STEMI) myocardial infarction of unspecified site Status: Acute Assessment and Plan: History of multivessel coronary disease admission to the hospital on 03/[address] elevation IA underwent successful percutaneous revascularization of his mid circumflex which was technically challenging because of his extensive vascular disease and difficult vascular access. Procedure was ultimately done with a good angiographic result. Previous stented vessels in his LAD and right mid right coronary were remaining patent. He has extensive peripheral vascular disease and has undergone right lower extremity amputation. Continue clopidogrel 75 mg daily, aspirin 81 mg daily, high intensity statin (2) Atrial fibrillation with RVR: Code(s): I48.91 - Unspecified atrial fibrillation Status: Acute Assessment and Plan: S/p DCCV earlier this week. Had AF RVR earlier today but back in sinus rhythm now. Anticoagulation has been held because of anemia requiring transfusion. Can consider resuming a/c if his H&H remains stable following this procedure. (3) Acute renal failure superimposed on stage 3 chronic kidney disease: Code(s): N17.9 - Acute kidney failure, unspecified; N18.30 - Chronic kidney disease, stage 3 unspecified Status: Acute Assessment and Plan: Multifactorial secondary to acute IA, hypotension, contrast exposure. SCr today 1.7 (4) Essential (primary) hypertension: Code(s): I10 - Essential (primary) hypertension Status: Chronic Assessment and Plan: At goal (5) Insulin dependent type 2 diabetes mellitus: Code(s): E11.9 - Type 2 diabetes mellitus without complications; Z79.4 - senior care (current) use of insulin Status: Acute Assessment and Plan: Management per hospitalist service (6) Peripheral arterial disease: Code(s): I73.9 - Peripheral vascular disease, unspecified Status: Acute Assessment and Plan: On ASA, plavix, statin (7) Dyslipidemia: Code(s): E78.5 - Hyperlipidemia, unspecified Status: Acute Assessment and Plan: Continue high intensity statin (8) CHF (congestive heart failure): Code(s): I50.9 - Heart failure, unspecified Status: Acute Assessment and Plan: Status post thoracentesis yesterday (9) Pericardial effusion: Code(s): I31.39 - Other pericardial effusion (noninflammatory) Status: Acute Assessment and Plan: Large by CT scan. Will repeat an echo this week Subjective Date/time seen: 03/17/24 08:42 Interval history: Follow-up visit in this 63-year-old man with diffuse coronary and peripheral arterial disease. Presented to the hospital on 03/04/2024 with some neck pain and altered mental status. STEMI was declared because of inferolateral ST segment elevation. High-grade stenosis in the trunk of the circumflex was identified and treated with PCI as detailed in the catheterization lab report. Previous LAD and right coronary stents were patent. Patient remains hospitalized was having difficulty with recurrence of atrial fibrillation last evening. This was a accompanied by hypotension requiring transfer back to the ICU. Likely this is a combination of his atrial fib other medications that were on board for hypertension. He is receiving intravenous amiodarone at this time and persisting atrial fib with heart rate 100-110. He is resting relatively comfortably upon awakening he offers no specific complaints. Date of service 03/09/2024: He was not complaining of chest pain earlier today is reported but not complaints of significant reproducible chest pain worse with deep breathing, movement, coughing or any palpation. Morphine helps. BP variable, Khanh-Synephrine held secondary to hypertension. Date of service 03/10/2024: Patient is sle
--- NOTE | 2024-03-17 12:22 | PM.PNNEP ---
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(?) cannot r/o an element of CKD progression second insult likely due to fluctuating hypotension/hemodynamic instability fluctuating H/H Afib with RVR contrast (cardiac cath + CT scan) UTI evaluation to date noted: urine eosinophil negative urine electrolytes prerenal mild proteinuria CPK normal renal ultrasound c/w CKD follow trend of repeat labs and UOP (2) Chronic kidney disease, stage 3: Code(s): N18.3 - Chronic kidney disease, stage 3 (moderate) Status: Chronic Assessment and Plan: baseline creatinine seems to run ~ 1.4 - 1.7mg/dl this would cause him to fluctuate between CKD stage 3A and stage 3B likely secondary to hypertension, diabetes, severe vascular disease (CAD + PAD + hyperlipidemia), and age (3) Hyperkalemia: Code(s): E87.5 - Hyperkalemia Status: Acute Assessment and Plan: resolved presumably due to #1 off lokelma follow repeat K+ levels (4) Acute respiratory failure: Code(s): J96.00 - Acute respiratory failure, unspecified whether with hypoxia or hypercapnia Status: Acute Assessment and Plan: suspect multifactorial etiology: large left pleural effusion/ whiteout of left hemithorax hypoxia AMS/encephalopathy intubated on 03/15/24 initiated on broad spectrum antibiotics diuresis as tolerated (on IV lasix) follow culture data continue bronchodilator therapy (5) Pleural effusion, left: Code(s): J90 - Pleural effusion, not elsewhere classified Status: Acute Assessment and Plan: as noted by recent CXR contributing component to #4 s/p left thoracentesis by IR on 03/15/24 follow-up on pleural fluid studies/analysis on antibiotics as noted (6) ST elevation (STEMI) myocardial infarction: Code(s): I21.3 - ST elevation (STEMI) myocardial infarction of unspecified site Status: Acute Assessment and Plan: admission EKG showed inferior lateral ST-elevation [place] s/p cardiac cath with PTCA/PCI with KENYA x 1 to mid RCA which was 90% blocked no LV gram was performed due to renal dysfunction Cardiology following Echo results noted remains on DAPT and statin (7) Atrial fibrillation: Code(s): I48.91 - Unspecified atrial fibrillation Status: Acute Assessment and Plan: on amiodarone s/p cardioversion on 03/11 on anticoagulation Cardiology following (8) Anemia: Code(s): D64.9 - Anemia, unspecified Status: Acute Assessment and Plan: due in part to CKD and acute illness follow trend of H/H started Epogen while hospitalized givern renal dysfunction (9) UTI (urinary tract infection): Code(s): N39.0 - Urinary tract infection, site not specified Status: Acute Assessment and Plan: urine culture with Proteus completed 7 day course of antibiotics (10) Insulin dependent type 2 diabetes mellitus: Code(s): E11.9 - Type 2 diabetes mellitus without complications; Z79.4 - buttermaker continuous churn (current) use of insulin Status: Acute Assessment and Plan: follow accu-cheks glycemic control per hospitalist/strand galvanizer Will continue to follow. Subjective Date/time seen: 03/17/24 12:22 Interval history: Follow-up for acute kidney injury/acute renal failure on chronic kidney disease. Remains intubated/sedated and on mechanical ventilation; renal function stable if not improving and continues to make good urine output in response to IV diuretics; hemodynamically stable without the need for vasopressor therapy; remains in NSR at this time. Exam Narrative: General: elderly male intubated/sedate
--- NOTE | 2024-03-17 12:22 | P.PNNP_ITS ---
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 * prerenal factors(?) * cannot r/o an element of CKD progression * second insult likely due to * fluctuating hypotension/hemodynamic instability * fluctuating H/H * Afib with RVR * contrast (cardiac cath + CT scan) * UTI * evaluation to date noted: * urine eosinophil negative * urine electrolytes prerenal * mild proteinuria * CPK normal * renal ultrasound c/w CKD * follow trend of repeat labs and UOP (2) Chronic kidney disease, stage 3: Code(s): N18.3 - Chronic kidney disease, stage 3 (moderate) Status: Chronic Assessment and Plan: * baseline creatinine seems to run ~ 1.4 - 1.7mg/dl * this would cause him to fluctuate between CKD stage 3A and stage 3B * likely secondary to hypertension, diabetes, severe vascular disease (CAD + PAD + hyperlipidemia), and age (3) Hyperkalemia: Code(s): E87.5 - Hyperkalemia Status: Acute Assessment and Plan: * resolved * presumably due to #1 * off lokelma * follow repeat K+ levels (4) Acute respiratory failure: Code(s): J96.00 - Acute respiratory failure, unspecified whether with hypoxia or hypercapnia Status: Acute Assessment and Plan: * suspect multifactorial etiology: * large left pleural effusion/ whiteout of left hemithorax * hypoxia * AMS/encephalopathy * intubated on 03/15/24 * initiated on broad spectrum antibiotics * diuresis as tolerated (on IV lasix) * follow culture data * continue bronchodilator therapy (5) Pleural effusion, left: Code(s): J90 - Pleural effusion, not elsewhere classified Status: Acute Assessment and Plan: * as noted by recent CXR * contributing component to #4 * s/p left thoracentesis by IR on 03/15/24 * follow-up on pleural fluid studies/analysis * on antibiotics as noted (6) ST elevation (STEMI) myocardial infarction: Code(s): I21.3 - ST elevation (STEMI) myocardial infarction of unspecified site Status: Acute Assessment and Plan: * admission EKG showed inferior lateral ST-elevation [place] * s/p cardiac cath with PTCA/PCI with KENYA x 1 to mid RCA which was 90% blocked * no LV gram was performed due to renal dysfunction * Cardiology following * Echo results noted * remains on DAPT and statin (7) Atrial fibrillation: Code(s): I48.91 - Unspecified atrial fibrillation Status: Acute Assessment and Plan: * on amiodarone * s/p cardioversion on 03/11 * on anticoagulation * Cardiology following (8) Anemia: Code(s): D64.9 - Anemia, unspecified Status: Acute Assessment and Plan: * due in part to CKD and acute illness * follow trend of H/H * started Epogen while hospitalized givern renal dysfunction (9) UTI (urinary tract infection): Code(s): N39.0 - Urinary tract infection, site not specified Status: Acute Assessment and Plan: * urine culture with Proteus * completed 7 day course of antibiotics (10) Insulin dependent type 2 diabetes mellitus: Code(s): E11.9 - Type 2 diabetes mellitus without complications; Z79.4 - exterminator helper (c urrent) use of insulin Status: Acute Assessment and Plan: * follow accu-cheks
[2024-03-17] MEDS: ALBUMIN HUMAN 25% 25 GM/100 ML 100 ML IVPB ×2 (12:23→18:12)
[2024-03-17 12:36] LABS: Glucose Point of Care 198 mg/dl (65-105)
[2024-03-17] MEDS: MIDAZOLAM 100MG/NS 100ML(*CRX) 100 MG/100 ML BAG IV CONT (14:13)
--- NOTE | 2024-03-17 14:45 | PM.IMPN ---
Progress Note: A&P Assessment and Plan (1) Hypotension: Code(s): I95.9 - Hypotension, unspecified Status: Acute Assessment and Plan: Patient developed low BP on 03/07 and transferred to ICU due to hypotension. CTA Ch/A/P 03/07 showing large pericardial effusion, possible exudative and L>R pleural effusion. Bedside limited echo 03/[address] chest with large pericardial effusion. (2) Atrial fibrillation: Code(s): I48.91 - Unspecified atrial fibrillation Status: Acute Assessment and Plan: Eliquis added but held due to potential of bleeding He is on aspirin and Plavix He underwent DC Cardioversion 03/11 with islam of sinus rhythm using 200J x 1 Tele showing he is maintaining NSR. Started oral Amiodarone (3) ST elevation (STEMI) myocardial infarction: Code(s): I21.3 - ST elevation (STEMI) myocardial infarction of unspecified site Status: Acute Assessment and Plan: Patient presents with neck pain and found to have inferior and anterolateral ST-elevation IA. Troponin normal x3. STEMI alert and patient went for [facility]: s/p PTCA/PCI with KENYA x1 to mid RCA which was 90% blocked and was the culprit vessel. No LV gram was performed due to acute on chronic kidney disease Echo showing EF 65-70%, Patient was started on aspirin, Plavix, rosuvastatin, (4) Acute renal failure superimposed on stage 3 chronic kidney disease: Code(s): N17.9 - Acute kidney failure, unspecified; N18.30 - Chronic kidney disease, stage 3 unspecified Status: Acute Assessment and Plan: CRF stage IV creatinine 2.8 and GFR 20 Creatinine slowly improving down to 2.2 today Diuresis started Nephrology following (5) UTI (urinary tract infection): Code(s): N39.0 - Urinary tract infection, site not specified Status: Acute Assessment and Plan: Urine cultures and sensitivity. Proteus mirabilis Continue IV hydration. Monitor CBC CMP Monitor vital signs Continue Aztreonam (6) Insulin dependent type 2 diabetes mellitus: Code(s): E11.9 - Type 2 diabetes mellitus without complications; Z79.4 - long term acute care registered nurse (current) use of insulin Status: Acute Assessment and Plan: A1c 8.0. The patient's blood glucose was reviewed on 03/12 Glucose better controlled Continue AccuCheks covering with sliding scale. Hypoglycemia protocol available as needed. Continue to monitor for now (7) Anemia: Code(s): D64.9 - Anemia, unspecified Status: Acute Assessment and Plan: Chronic anemia with Hgb mostly in the 8-9 range H&H 8.1/25.7. No need for transfusion will continue to monitor (8) Peripheral vascular disease: Code(s): I73.9 - Peripheral vascular disease, unspecified Status: Acute Assessment and Plan: Chronic -right BKA -dopplerable pedal pulses on the left (9) Chest pain: Code(s): R07.9 - Chest pain, unspecified Status: Acute Assessment and Plan: As above Plan Acute respiratory failure with hypoxia and hypercapnia. Repeat ABG stat improved however still confused on BiPAP. Intubated 03/15/2024. CT chest to with pneumonia started on vancomycin aztreonam and Flagyl. Follow cultures Encephalopathy confusion could be from hypoxia. CT head was negative Large left pleural effusion status post thoracentesis with removal of 500 cc of pleural fluid, planned thoracentesis on right tomorrow DVT prophylaxis. left leg SCDs code status full code GI prophylaxis. PPI Code status full code dictation may have been done utilizing a voice recognition system. Attempts have been made to correct errors. However, there may be uncorrected grammatical, spelling, and recognition errors present. Subjective Date/time seen: 03/17/24 14:45 Interval history: Patient intubated and sedated on mechanical vent. Discussed with draw press operator. Review o
[2024-03-17 17:07] LABS: Glucose Point of Care 191 mg/dl (65-105)
[2024-03-17 19:57] LABS: Glucose Point of Care 160 mg/dl (65-105)
[2024-03-17] MEDS: SENNA/DOCUSATE SODIUM TABLET 1 TAB PO (20:06)
[2024-03-18] VITALS (47 sets, daily range): BP systolic 107–166; BP diastolic 43–94; PULSE 64–89; RESP 18–36; TEMP 37.4–37.9; O2SAT 93–99; BMI 38.0
[2024-03-18 00:01] LABS: Glucose Point of Care 135 mg/dl (65-105)
[2024-03-18] MEDS: ALBUMIN HUMAN 25% 25 GM/100 ML 100 ML IVPB ×2 (00:11→06:19)
[2024-03-18] MEDS: AZTREONAM 2 GM in SODIUM CHLORIDE 0.9% IV 100 ML 200 ML IVPB ×3 (00:17→16:59)
[2024-03-18] MEDS: metroNIDAZOLE 500 MG/ISO 100ML 500 MG/100 ML BAG 100 MG IVPB ×3 (00:56→16:59)
[2024-03-18] MEDS: IPRATROPIUM 0.5 MG/ALBUTEROL SULFATE 2.5 MG AMPUL.NEB 3 ML INHALATION ×4 (02:11→21:32)
[2024-03-18 04:08] LABS: Glucose Point of Care 89 mg/dl (65-105)
[2024-03-18 05:37] LABS: Alveolar/Arterial O2 Gradient 135.5 mmHg; Base Excess ABG 6.1 mEq/l (+/-2.0); Carboxyhemoglobin 0.2 % THb (0-2.0); Device VENTILATOR; Fractional Inspired Oxygen 35 %; HCO3 ABG 30.9 mEq/l (22.0-26.0); Methemoglobin ABG 0.2 %THb (0-1.5); Modified Allen's Test Unable to perform; Oxygen Content ABG 11.4 %vol (16.0-22.0); Oxygen Saturation ABG 91.8 % (95.0-100.0); Oxyhemoglobin 88.6 % THb (90.0-100.0); PCO2 ABG 46.3 mmHg (35.0-45.0); PO2 ABG 60.2 mmHg (80.0-100.0); PO2 FiO2 Ratio Arterial Blood 1.72 %; Site Drawn RIGHT RADIAL; Total Hemoglobin 9.1 g/dL (12.0-18.0); pH ABG 7.442 (7.350-7.450)
[2024-03-18 05:38] LABS: Arterial Blood Gas PEEP 8 cmH2O; Arterial Blood Gas Tidal Volume 450 ml; Arterial Blood Gas Vent Mode CMV; Arterial Blood Gas Ventilator rate 20 /MIN
[2024-03-18 06:09] LABS: Basophils Percent Auto 0.1 % (0.2-1.2); Eosinophils Absolute Auto 0.1 K/mm3 (0-0.3); Eosinophils Percent Auto 0.6 % (0-4.4); Hemoglobin 8.2 g/dL (14.0-18.0); Immature Granulocyte Absolute 0.13 K/mm3 (0.00-0.031); Immature Granulocyte Percent A 0.8 % (0-0.5); Lymphocytes Absolute Auto 2.05 K/mm3 (0.9-3.2); Mean Corpuscular HGB Conc 29.3 g/dl (32-36); Mean Corpuscular Hemoglobin 28.5 pg (26-34); Mean Corpuscular Volume 97.2 fl (80-100); Mean Platelet Volume 11.8 fl (7.4-10.4); Monocytes Absolute Auto 0.8 K/mm3 (0.1-0.6); Monocytes Percent Auto 5.2 % (2.6-8.5); Neutrophils Absolute Auto 12.7 K/mm3 (1.3-6.7); Neutrophils Percent Auto 80.3 % (45.5-73.1); Nucleated Red Blood Cells Perc 0.3 % (0.0-0.2); Platelet Count Result 303 k/mm3 (150-375); Red Blood Count 2.88 M/mm3 (4.6-6.20); Red Cell Distribution Width 17.6 % (11.5-14.5); White Blood Count 15.8 K/mm3 (4.5-10.0)
[2024-03-18 06:17] LABS: Alanine Aminotransferase 21 U/L (6-50); Albumin Level 3.9 g/dL (3.5-5.1); Alkaline Phosphatase 107 U/L (38-126); Anion Gap 5 mmol/L (4-12); Aspartate Amino Transferase 23 U/L (17-59); Bilirubin,Total 0.5 mg/dL (0.2-1.3); Blood Urea Nitrogen 67 mg/dL (9-20); Calcium 9.2 mg/dL (8.4-10.2); Carbon Dioxide 33 mmol/L (22-30); Chloride 112 mmol/L (98-107); Estimated CRCL calculation 52 ml/min; Estimated Glomerular Filt Rate 41; Glucose 102 mg/dL (65-110); Phosphorus 3.7 mg/dL (2.5-4.5); Potassium 4.2 mmol/L (3.4-5.0); Sodium 150 mmol/L (137-145)
[2024-03-18] MEDS: CENTRAL LINE FLUSH 10 ML IV PUSH ×3 (06:23→20:34)
[2024-03-18 06:54] LABS: Hypochromasia 1+; Platelet Estimate Adequate (Adequate); Target Cells 1+
[2024-03-18 06:55] LABS: Schistocytes None Seen
--- NOTE | 2024-03-18 07:54 | WPDINTPN ---
Progress Note: A&P Assessment and Plan (1) Acute respiratory failure: Qualifiers: Respiratory failure complication: unspecified whether with hypoxia or hypercapnia Qualified Code(s): J96.00 - Acute respiratory failure, unspecified whether with hypoxia or hypercapnia <Marianne Vega Student - Last Filed: 03/18/24 08:43> Code(s): J96.00 - Acute respiratory failure, unspecified whether with hypoxia or hypercapnia <Marianne Vega Student - Last Filed: 03/18/24 08:43> Status: Acute <Marianne Vega Student - Last Filed: 03/18/24 08:43> Assessment and Plan: Acute respiratory failure likely related to large left pleural effusion, hypoxia, encephalopathy, mottling, requiring intubation on 03/15/24. 03/18: Pleural effusion improving clinically and radiographically Microbiology studies: -Blood: no growth after 120 hours incubation -Sputum: preliminary report shows specimen is provider service representative of the lower respiratory tract -Urine: no growth -Left Pleural fluid: gram stain:many, pending cultures and cytology -chest x-ray this morning and ABGs reviewed -continue CMV mode of ventilation, PEEP 8, FiO2 35% -continue vancomycin, aztreonam, Flagyl (03/16) -sedated with fentanyl and Versed infusion, maintain RASS of 0 to -2, daily sedation vacation -continue bronchodilators -continue diuresis 03/16/2024: CT chest/Abdomen/Pelvis non contrast IMPRESSION: 1. Lines and tubes in expected position. 2. Persistent consolidation in the left mid to lower lung zone correspond to a small left pleural effusion and associated atelectasis on prior CT. Superimposed pneumonia not excludable. 3. Increasing pulmonary vascular congestion with indistinct interstitial and hazy airspace opacity right mid to lower lung zone likely combination of mild pulmonary edema or pneumonia superimposed over a small to moderate-sized right pleural effusion which is much better appreciated on prior CT. 4. Large cardiac silhouette on prior CT correspond to a large pericardial effusion. <Leticia Vazquez MD - Last Filed: 03/26/24 12:11> (2) Pleural effusion, left: Code(s): J90 - Pleural effusion, not elsewhere classified <Marianne Vega Student - Last Filed: 03/18/24 08:43> Status: Acute <Marianne Vega Student - Last Filed: 03/18/24 08:43> Assessment and Plan: Large left pleural effusion -03/15:? Left thoracentesis with drainage of 500 mL of yellowish fluid -pleural fluid labs are pending -pleural fluid Gram stain did not show any organisms, pleural fluid culture no growth so far -antibiotics as above <Leticia Vazquez MD - Last Filed: 03/26/24 12:11> (3) Acute renal failure superimposed on stage 3 chronic kidney disease: Code(s): N17.9 - Acute kidney failure, unspecified; N18.30 - Chronic kidney disease, stage 3 unspecified <Jamshid Villagomez - Last Filed: 03/18/24 08:43> Status: Acute <Marianne Vega Student - Last Filed: 03/18/24 08:43> Assessment and Plan: Acute on chronic renal disease -creatinine on admission is 2.50 (normal creatinine is between 1.30-1.70) -patient receiving post catheterization IV fluids and creatinine is improved to 2.0 and and then levels leveled 03/07 episode of hypotension and patient also received contrast for CTA ordered by Cardiology to rule out any retroperitoneal hemorrhage after initiation of Eliquis and drop in blood pressure 03/08 creatinine increased 2.5.? Patient was given 2 L of fluid bolus yesterday post CT and also is getting 500 mL of albumin 03/11 creatinine 3.1 03/09: Renal ultrasound -Bilateral cortical atrophy. Moderate right renal atrophy. Renal sinus lipomatosis. Small right pleural effusion. Nephrology is following Monitor urine output electrolytes and creatinine 03/15: Will DC sodium bicarbonate at this time, patient is hyperkalemia, will treat.? Continue diuresis, creatinine trending down, continue to monito
[2024-03-18 08:08] LABS: Glucose Point of Care 86 mg/dl (65-105)
[2024-03-18] MEDS: FUROSEMIDE INJ 40 MG/4 ML VIAL IV PUSH ×2 (08:17→20:33)
[2024-03-18] MEDS: MINERAL OIL/WHITE PETROLATUM OINTMENT 1 APPLIC EACH EYE ×2 (08:17→20:34)
[2024-03-18] MEDS: PANTOPRAZOLE SODIUM IV 40 MG VIAL IV PUSH ×2 (08:17→20:33)
[2024-03-18] MEDS: INSULIN GLARGINE (*BKC) 100 UNITS/ML 60 UNITS SUB-Q (08:17)
[2024-03-18] MEDS: guaiFENesin 12 HR 600 MG TABCR 1200 MG PO ×2 (08:19→20:34)
[2024-03-18] MEDS: CLOPIDOGREL BISULFATE 75 MG TABLET PO (08:19)
[2024-03-18] MEDS: polyethylene glycoL 3350 17 GM POWD.PACK PO (08:19)
[2024-03-18] MEDS: AMIODARONE HCL 200 MG TABLET 400 MG PO (08:19)
[2024-03-18] MEDS: PREGABALIN (*CRX) 75 MG CAPSULE 150 MG PO ×3 (08:20→16:59)
[2024-03-18] MEDS: ROSUVASTATIN 10 MG TABLET 20 MG PO (08:20)
[2024-03-18] MEDS: buPROPion HCL SR (12HR) 100 MG TABCR PO (08:20)
[2024-03-18] MEDS: EPOETIN ALFA-EPBX 10,000 UNITS/ML VIAL 10000 UNITS SUB-Q (08:20)
[2024-03-18] MEDS: ASPIRIN 81 MG CHEWABLE TABLET PO (08:20)
[2024-03-18 08:40] LABS: Vancomycin Trough 19.9 ug/mL (10.0-20.0)
[2024-03-18] MEDS: VANCOMYCIN 1,500 MG/NS 500 ML 1,500 MG/500 ML BAG 250 MG IVPB (09:37)
[2024-03-18] MEDS: FENTANYL 2,500MCG/NS250ML(*CRX 2,500 MCG/250 ML BAG 10 MCG IV CONT (09:40)
--- NOTE | 2024-03-18 09:41 | PM.PNCARD ---
Progress Note: A&P Assessment and Plan (1) ST elevation (STEMI) myocardial infarction: Code(s): I21.3 - ST elevation (STEMI) myocardial infarction of unspecified site Status: Acute Assessment and Plan: History of multivessel coronary disease admission to the hospital on 03/[address] elevation IA underwent successful percutaneous revascularization of his mid circumflex which was technically challenging because of his extensive vascular disease and difficult vascular access. Procedure was ultimately done with a good angiographic result. Previous stented vessels in his LAD and right mid right coronary were remaining patent. He has extensive peripheral vascular disease and has undergone right lower extremity amputation. Continue clopidogrel 75 mg daily, aspirin 81 mg daily, high intensity statin (2) Atrial fibrillation with RVR: Code(s): I48.91 - Unspecified atrial fibrillation Status: Acute Assessment and Plan: S/p DCCV earlier this week. Had AF RVR earlier today but back in sinus rhythm now. Anticoagulation has been held because of anemia requiring transfusion. Can consider resuming a/c if his H&H remains stable following this procedure. On oral amiodarone. Currently on 400 mg daily (3) Acute renal failure superimposed on stage 3 chronic kidney disease: Code(s): N17.9 - Acute kidney failure, unspecified; N18.30 - Chronic kidney disease, stage 3 unspecified Status: Acute Assessment and Plan: Multifactorial secondary to acute IA, hypotension, contrast exposure. SCr today 1.7 (4) Essential (primary) hypertension: Code(s): I10 - Essential (primary) hypertension Status: Chronic Assessment and Plan: At goal (5) Insulin dependent type 2 diabetes mellitus: Code(s): E11.9 - Type 2 diabetes mellitus without complications; Z79.4 - terminal operations manager (current) use of insulin Status: Acute Assessment and Plan: Management per hospitalist service (6) Peripheral arterial disease: Code(s): I73.9 - Peripheral vascular disease, unspecified Status: Acute Assessment and Plan: On ASA, plavix, statin (7) Dyslipidemia: Code(s): E78.5 - Hyperlipidemia, unspecified Status: Acute Assessment and Plan: Continue high intensity statin (8) CHF (congestive heart failure): Code(s): I50.9 - Heart failure, unspecified Status: Acute Assessment and Plan: Status post thoracentesis yesterday (9) Pericardial effusion: Code(s): I31.39 - Other pericardial effusion (noninflammatory) Status: Acute Assessment and Plan: Large by CT scan. Will repeat an echo this week Plan Sodium is increasing. Concern for intravascular volume depletion/contraction. Still on IV furosemide. Will discuss with Dr. Vazquez Subjective Date/time seen: 03/18/24 09:41 Interval history: Follow-up visit in this 63-year-old man with diffuse coronary and peripheral arterial disease. Presented to the hospital on 03/04/2024 with some neck pain and altered mental status. STEMI was declared because of inferolateral ST segment elevation. High-grade stenosis in the trunk of the circumflex was identified and treated with PCI as detailed in the catheterization lab report. Previous LAD and right coronary stents were patent. Patient remains hospitalized was having difficulty with recurrence of atrial fibrillation last evening. This was a accompanied by hypotension requiring transfer back to the ICU. Likely this is a combination of his atrial fib other medications that were on board for hypertension. He is receiving intravenous amiodarone at this time and persisting atrial fib with heart rate 100-110. He is resting relatively comfortably upon awakening he offers no specific complaints. Date of service 03/09/2024: He was not complaining of chest pain earlier today is reported but not complaints of significant reproducible chest
--- NOTE | 2024-03-18 09:47 | PM.PNNEP ---
Progress Note: A&P Assessment and Plan (1) SIM (acute kidney injury): Code(s): N17.9 - Acute kidney failure, unspecified Status: Acute Assessment and Plan: relatively stable - close to baseline suspect initial insult due to: acute ND concurrent ETHAN-I MULTICULTURAL MANAGER prerenal factors(?) cannot r/o an element of CKD progression second insult likely due to fluctuating hypotension/hemodynamic instability fluctuating H/H Afib with RVR contrast (cardiac cath + CT scan) UTI evaluation to date noted: urine eosinophil negative urine electrolytes prerenal mild proteinuria CPK normal renal ultrasound c/w CKD follow trend of repeat labs and UOP (2) Chronic kidney disease, stage 3: Code(s): N18.3 - Chronic kidney disease, stage 3 (moderate) Status: Chronic Assessment and Plan: baseline creatinine seems to run ~ 1.4 - 1.7mg/dl this would cause him to fluctuate between CKD stage 3A and stage 3B likely secondary to hypertension, diabetes, severe vascular disease (CAD + PAD + hyperlipidemia), and age (3) Hyperkalemia: Code(s): E87.5 - Hyperkalemia Status: Acute Assessment and Plan: resolved presumably due to #1 off lokelma follow repeat K+ levels (4) Acute respiratory failure: Code(s): J96.00 - Acute respiratory failure, unspecified whether with hypoxia or hypercapnia Status: Acute Assessment and Plan: suspect multifactorial etiology: large left pleural effusion/ whiteout of left hemithorax hypoxia AMS/encephalopathy intubated on 03/15/24 initiated on broad spectrum antibiotics diuresis as tolerated (on IV lasix) follow culture data continue bronchodilator therapy (5) Pleural effusion, left: Code(s): J90 - Pleural effusion, not elsewhere classified Status: Acute Assessment and Plan: as noted by recent CXR contributing component to #4 s/p left thoracentesis by IR on 03/15/24 pleural fluid studies/analysis noted on antibiotics (6) ST elevation (STEMI) myocardial infarction: Code(s): I21.3 - ST elevation (STEMI) myocardial infarction of unspecified site Status: Acute Assessment and Plan: admission EKG showed inferior lateral ST-elevation ND s/p cardiac cath with PTCA/PCI with KENYA x 1 to mid RCA which was 90% blocked no LV gram was performed due to renal dysfunction Cardiology following Echo results noted remains on DAPT and statin (7) Atrial fibrillation: Code(s): I48.91 - Unspecified atrial fibrillation Status: Acute Assessment and Plan: on amiodarone s/p cardioversion on 03/11 on anticoagulation Cardiology following (8) Anemia: Code(s): D64.9 - Anemia, unspecified Status: Acute Assessment and Plan: due in part to CKD and acute illness follow trend of H/H started Epogen while hospitalized givern renal dysfunction (9) UTI (urinary tract infection): Code(s): N39.0 - Urinary tract infection, site not specified Status: Acute Assessment and Plan: urine culture with Proteus completed 7 day course of antibiotics (10) Insulin dependent type 2 diabetes mellitus: Code(s): E11.9 - Type 2 diabetes mellitus without complications; Z79.4 - terminal superintendent (current) use of insulin Status: Acute Assessment and Plan: follow accu-cheks glycemic control per hospitalist/office assistant Will continue to follow. Subjective Date/time seen: 03/18/24 09:47 Interval history: Follow-up for acute kidney injury/acute renal failure on chronic kidney disease. Renal function remains stable with good diuresis with IV diuretics; hemodynamically stable without the need for vasopressor therapy; remains intubated/sedated and on mechanical ventilation; no other issues/events overnight or earlier this morning. Exam Narrative: General: elderly male intubated/sedated and on
--- NOTE | 2024-03-18 09:47 | P.PNNP_ITS ---
Progress Note: A&P Assessment and Plan (1) SIM (acute kidney injury): Code(s): N17.9 - Acute kidney failure, unspecified Status: Acute Assessment and Plan: * relatively stable - close to baseline * suspect initial insult due to: * acute [place] * concurrent ETHAN-I MINERALOGY PROFESSOR * prerenal factors(?) * cannot r/o an element of CKD progression * second insult likely due to * fluctuating hypotension/hemodynamic instability * fluctuating H/H * Afib with RVR * contrast (cardiac cath + CT scan) * UTI * evaluation to date noted: * urine eosinophil negative * urine electrolytes prerenal * mild proteinuria * CPK normal * renal ultrasound c/w CKD * follow trend of repeat labs and UOP (2) Chronic kidney disease, stage 3: Code(s): N18.3 - Chronic kidney disease, stage 3 (moderate) Status: Chronic Assessment and Plan: * baseline creatinine seems to run ~ 1.4 - 1.7mg/dl * this would cause him to fluctuate between CKD stage 3A and stage 3B * likely secondary to hypertension, diabetes, severe vascular disease (CAD + PAD + hyperlipidemia), and age (3) Hyperkalemia: Code(s): E87.5 - Hyperkalemia Status: Acute Assessment and Plan: * resolved * presumably due to #1 * off lokelma * follow repeat K+ levels (4) Acute respiratory failure: Code(s): J96.00 - Acute respiratory failure, unspecified whether with hypoxia or hypercapnia Status: Acute Assessment and Plan: * suspect multifactorial etiology: * large left pleural effusion/ whiteout of left hemithorax * hypoxia * AMS/encephalopathy * intubated on 03/15/24 * initiated on broad spectrum antibiotics * diuresis as tolerated (on IV lasix) * follow culture data * continue bronchodilator therapy (5) Pleural effusion, left: Code(s): J90 - Pleural effusion, not elsewhere classified Status: Acute Assessment and Plan: * as noted by recent CXR * contributing component to #4 * s/p left thoracentesis by IR on 03/15/24 * pleural fluid studies/analysis noted * on antibiotics (6) ST elevation (STEMI) myocardial infarction: Code(s): I21.3 - ST elevation (STEMI) myocardial infarction of unspecified site Status: Acute Assessment and Plan: * admission EKG showed inferior lateral ST-elevation [place] * s/p cardiac cath with PTCA/PCI with KENYA x 1 to mid RCA which was 90% blocked * no LV gram was performed due to renal dysfunction * Cardiology following * Echo results noted * remains on DAPT and statin (7) Atrial fibrillation: Code(s): I48.91 - Unspecified atrial fibrillation Status: Acute Assessment and Plan: * on amiodarone * s/p cardioversion on 03/11 * on anticoagulation * Cardiology following (8) Anemia: Code(s): D64.9 - Anemia, unspecified Status: Acute Assessment and Plan: * due in part to CKD and acute illness * follow trend of H/H * started Epogen while hospitalized givern renal dysfunction (9) UTI (urinary tract infection): Code(s): N39.0 - Urinary tract infection, site not specified Status: Acute Assessment and Plan: * urine culture with Proteus * completed 7 day course of antibiotics (10) Insulin dependent type 2 diabetes mellitus: Code(s): E11.9 - Type 2 diabetes mellitus without complications; Z79.4 - terminal operator (current) use of insulin Status: Acute Assessment and Plan: * follow accu-chek
--- NOTE | 2024-03-18 10:41 | PC.NURSE ---
attempted call to sister, Chaparrojason Omar. automatically went to [employer]; message left for a call back to ICU
[2024-03-18 11:34] LABS: Glucose Point of Care 38 mg/dl (65-105)
[2024-03-18] MEDS: DEXTROSE 50% 25 GM/50 ML SYRINGE IV PUSH ×3 (11:37→21:00)
[2024-03-18 11:47] LABS: Glucose Point of Care 150 mg/dl (65-105)
[2024-03-18 12:14] LABS: Glucose Point of Care 114 mg/dl (65-105)
[2024-03-18 13:14] LABS: Glucose Point of Care 69 mg/dl (65-105)
[2024-03-18] MEDS: DEXTROSE 10% 1,000 ML 25 ML IV CONT (13:21)
[2024-03-18] MEDS: MIDAZOLAM 100MG/NS 100ML(*CRX) 100 MG/100 ML BAG IV CONT (15:21)
[2024-03-18 16:54] LABS: Appearance Pleural Fluid Hazy (Clear); Color Pleural Fluid Yellow (Colorless); Pleural fluid source Pleural fluid
[2024-03-18 16:55] LABS: Lymphocytes Pleural Fluid 25 %; Macrophages Pleural Fluid 1 %; Monocytes Pleural Fluid 17 %; Neutrophils Pleural Fluid 57 % (0-25)
--- NOTE | 2024-03-18 17:11 | PM.IMPN ---
Progress Note: A&P Assessment and Plan (1) Hypotension: Code(s): I95.9 - Hypotension, unspecified Status: Acute Assessment and Plan: Patient developed low BP on 03/07 and transferred to ICU due to hypotension. CTA Ch/A/P 03/07 showing large pericardial effusion, possible exudative and L>R pleural effusion. Bedside limited echo 03/[address] chest with large pericardial effusion. (2) Atrial fibrillation: Code(s): I48.91 - Unspecified atrial fibrillation Status: Acute Assessment and Plan: Eliquis added but held due to potential of bleeding He is on aspirin and Plavix He underwent DC Cardioversion 03/11 with uatsdin of sinus rhythm using 200J x 1 Tele showing he is maintaining NSR. Started oral Amiodarone (3) ST elevation (STEMI) myocardial infarction: Code(s): I21.3 - ST elevation (STEMI) myocardial infarction of unspecified site Status: Acute Assessment and Plan: Patient presents with neck pain and found to have inferior and anterolateral ST-elevation [place]. Troponin normal x3. STEMI alert and patient went for [facility]: s/p PTCA/PCI with KENYA x1 to mid RCA which was 90% blocked and was the culprit vessel. No LV gram was performed due to acute on chronic kidney disease Echo showing EF 65-70%, Patient was started on aspirin, Plavix, rosuvastatin, (4) Acute renal failure superimposed on stage 3 chronic kidney disease: Code(s): N17.9 - Acute kidney failure, unspecified; N18.30 - Chronic kidney disease, stage 3 unspecified Status: Acute Assessment and Plan: CRF stage IV creatinine 2.8 and GFR 20 Creatinine slowly improving down to 2.2 today Diuresis started Nephrology following (5) UTI (urinary tract infection): Code(s): N39.0 - Urinary tract infection, site not specified Status: Acute Assessment and Plan: Urine cultures and sensitivity. Proteus mirabilis Continue IV hydration. 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 The patient's blood glucose was reviewed on 03/12 Glucose better controlled Continue AccuCheks covering with sliding scale. Hypoglycemia protocol available as needed. Continue to monitor for now (7) Anemia: Code(s): D64.9 - Anemia, unspecified Status: Acute Assessment and Plan: Chronic anemia with Hgb mostly in the 8-9 range H&H 8.1/25.7. No need for transfusion will continue to monitor (8) Peripheral vascular disease: Code(s): I73.9 - Peripheral vascular disease, unspecified Status: Acute Assessment and Plan: Chronic -right BKA -dopplerable pedal pulses on the left (9) Chest pain: Code(s): R07.9 - Chest pain, unspecified Status: Acute Assessment and Plan: As above Plan Acute respiratory failure with hypoxia and hypercapnia. Repeat ABG stat improved however still confused on BiPAP. Intubated 03/15/2024. CT chest to with pneumonia started on vancomycin aztreonam and Flagyl. Follow cultures Encephalopathy confusion could be from hypoxia. CT head was negative Large left pleural effusion status post thoracentesis with removal of 500 cc of pleural fluid, underwent thoracentesis on the right with removal of 550 cc pleural for DVT prophylaxis. left leg SCDs code status full code GI prophylaxis. PPI Code status full code dictation may have been done utilizing a voice recognition system. Attempts have been made to correct errors. However, there may be uncorrected grammatical, spelling, and recognition errors present. Subjective Date/time seen: 03/18/24 17:11 Interval history: No overnight events. Patient remains intubated and sedate
[2024-03-18 17:26] LABS: Glucose Point of Care 71 mg/dl (65-105)
[2024-03-18] MEDS: SENNA/DOCUSATE SODIUM TABLET 1 TAB PO (20:34)
[2024-03-18 21:19] LABS: Glucose Point of Care 67 mg/dl (65-105)
[2024-03-18 21:19] LABS: Glucose Point of Care 129 mg/dl (65-105)
[2024-03-19] VITALS (38 sets, daily range): BP systolic 99–139; BP diastolic 35–72; PULSE 61–74; RESP 19–22; TEMP 37–37.7; O2SAT 93–98
[2024-03-19] MEDS: AZTREONAM 2 GM in SODIUM CHLORIDE 0.9% IV 100 ML 200 ML IVPB ×4 (00:18→23:44)
[2024-03-19] MEDS: metroNIDAZOLE 500 MG/ISO 100ML 500 MG/100 ML BAG 100 MG IVPB ×3 (00:21→16:44)
[2024-03-19 00:41] LABS: Glucose Point of Care 114 mg/dl (65-105)
[2024-03-19] MEDS: IPRATROPIUM 0.5 MG/ALBUTEROL SULFATE 2.5 MG AMPUL.NEB 3 ML INHALATION ×4 (02:49→19:49)
[2024-03-19 03:12] LABS: Glucose Point of Care 110 mg/dl (65-105)
[2024-03-19 04:34] LABS: Basophils Percent Auto 0.2 % (0.2-1.2); Eosinophils Absolute Auto 0.2 K/mm3 (0-0.3); Eosinophils Percent Auto 1.3 % (0-4.4); Hematocrit 24.5 % (42.0-52.0); Hemoglobin 7.4 g/dL (14.0-18.0); Immature Granulocyte Absolute 0.08 K/mm3 (0.00-0.031); Immature Granulocyte Percent A 0.6 % (0-0.5); Lymphocytes Absolute Auto 1.46 K/mm3 (0.9-3.2); Lymphocytes Percent Auto 11.4 % (18.3-44.2); Mean Corpuscular HGB Conc 30.2 g/dl (32-36); Mean Corpuscular Hemoglobin 29.4 pg (26-34); Mean Corpuscular Volume 97.2 fl (80-100); Mean Platelet Volume 10.4 fl (7.4-10.4); Monocytes Absolute Auto 0.6 K/mm3 (0.1-0.6); Monocytes Percent Auto 4.5 % (2.6-8.5); Neutrophils Absolute Auto 10.5 K/mm3 (1.3-6.7); Platelet Count Result 202 k/mm3 (150-375); Red Blood Count 2.52 M/mm3 (4.6-6.20); Red Cell Distribution Width 17.6 % (11.5-14.5); White Blood Count 12.8 K/mm3 (4.5-10.0)
[2024-03-19 04:46] LABS: INR 1.7; Partial Thromboplastin Time 38.9 Seconds (22.3-36.8); Prothrombin Time 20.9 Seconds (11.1-14.7)
[2024-03-19 04:47] LABS: Alanine Aminotransferase 17 U/L (6-50); Albumin Level 3.2 g/dL (3.5-5.1); Alkaline Phosphatase 81 U/L (38-126); Anion Gap 3 mmol/L (4-12); Aspartate Amino Transferase 24 U/L (17-59); Bilirubin,Total 0.5 mg/dL (0.2-1.3); Blood Urea Nitrogen 61 mg/dL (9-20); Calcium 8.7 mg/dL (8.4-10.2); Carbon Dioxide 35 mmol/L (22-30); Chloride 111 mmol/L (98-107); Estimated CRCL calculation 52 ml/min; Estimated Glomerular Filt Rate 41; Glucose 155 mg/dL (65-110); Magnesium 1.9 mg/dL (1.6-2.3); Phosphorus 4.2 mg/dL (2.5-4.5); Sodium 149 mmol/L (137-145)
[2024-03-19] MEDS: CENTRAL LINE FLUSH 10 ML IV PUSH ×3 (05:55→21:07)
[2024-03-19] MEDS: FENTANYL 2,500MCG/NS250ML(*CRX 2,500 MCG/250 ML BAG 10 MCG IV CONT (05:57)
[2024-03-19 06:02] LABS: Alveolar/Arterial O2 Gradient 117.1 mmHg; Base Excess ABG 7.6 mEq/l (+/-2.0); Carboxyhemoglobin 0.3 % THb (0-2.0); Fractional Inspired Oxygen 35 %; HCO3 ABG 32.6 mEq/l (22.0-26.0); Methemoglobin ABG 0.5 %THb (0-1.5); Oxygen Content ABG 7.1 %vol (16.0-22.0); Oxyhemoglobin 93.5 % THb (90.0-100.0); PCO2 ABG 50.4 mmHg (35.0-45.0); PO2 ABG 73.9 mmHg (80.0-100.0); PO2 FiO2 Ratio Arterial Blood 2.11 %; Reduced Hemoglobin 5.7 %THb (0-5.0); pH ABG 7.428 (7.350-7.450)
[2024-03-19 06:04] LABS: Modified Allen's Test Pass; Site Drawn LEFT RADIAL; Total Hemoglobin 5.3 g/dL (12.0-18.0)
[2024-03-19 06:05] LABS: Arterial Blood Gas PEEP 8 cmH2O; Arterial Blood Gas Vent Mode CMV; Arterial Blood Gas Ventilator rate 20 /MIN; Device VENTILATOR
[2024-03-19 06:06] LABS: Arterial Blood Gas Tidal Volume 450 ml
[2024-03-19 09:09] LABS: Glucose Point of Care 219 mg/dl (65-105)
[2024-03-19] MEDS: CLOPIDOGREL BISULFATE 75 MG TABLET PO (09:09)
[2024-03-19] MEDS: AMIODARONE HCL 200 MG TABLET 400 MG PO (09:09)
[2024-03-19] MEDS: ASPIRIN 81 MG CHEWABLE TABLET PO (09:09)
[2024-03-19] MEDS: ROSUVASTATIN 10 MG TABLET 20 MG PO (09:10)
[2024-03-19] MEDS: ENOXAPARIN 40 MG/0.4 ML SYRINGE SUB-Q (09:12)
[2024-03-19] MEDS: polyethylene glycoL 3350 17 GM POWD.PACK PO (09:12)
[2024-03-19] MEDS: FUROSEMIDE INJ 40 MG/4 ML VIAL IV PUSH ×2 (09:12→20:59)
[2024-03-19] MEDS: PANTOPRAZOLE SODIUM IV 40 MG VIAL IV PUSH ×2 (09:12→20:52)
[2024-03-19] MEDS: INSULIN ASPART (*BKC) 100 UNITS/ML SUB-Q ×2 (09:13→11:34)
[2024-03-19] MEDS: MINERAL OIL/WHITE PETROLATUM OINTMENT 1 APPLIC EACH EYE ×2 (09:13→21:07)
--- NOTE | 2024-03-19 09:27 | WPDINTPN ---
Progress Note: A&P Assessment and Plan (1) Acute respiratory failure: Code(s): J96.00 - Acute respiratory failure, unspecified whether with hypoxia or hypercapnia Status: Acute Assessment and Plan: Acute respiratory failure likely related to large left pleural effusion, hypoxia, encephalopathy, mottling, requiring intubation. -03/15: Patient intubated due to impending respiratory failure -on CMV mode of ventilation, peep of 8, 35% FiO2 Chest x-ray Stable extensive left lower lobe consolidation with possible small left pleural effusion. Patchy hazy airspace disease right lung base, unchanged. Increase PEEP to 10 -sedated with fentanyl and Versed infusion, maintain RASS of 0 to -2, daily sedation vacation -continue bronchodilators -continue diuresis -continue vancomycin, aztreonam, Flagyl (03/16) -03/16: Blood cultures pending -03/16: Sputum cultures growing MRSA -03/16: Urine cultures pending 03/16/2024: CT chest/Abdomen/Pelvis non contrast IMPRESSION: 1. Lines and tubes in expected position. 2. Persistent consolidation in the left mid to lower lung zone correspond to a small left pleural effusion and associated atelectasis on prior CT. Superimposed pneumonia not excludable. 3. Increasing pulmonary vascular congestion with indistinct interstitial and hazy airspace opacity right mid to lower lung zone likely combination of mild pulmonary edema or pneumonia superimposed over a small to moderate-sized right pleural effusion which is much better appreciated on prior CT. 4. Large cardiac silhouette on prior CT correspond to a large pericardial effusion. (2) Pleural effusion, left: Code(s): J90 - Pleural effusion, not elsewhere classified Status: Acute Assessment and Plan: Large left pleural effusion -03/15: Left thoracentesis with drainage of 500 mL of yellowish fluid 5/ repeat thoracentesis on the left 550 mL fluid was removed -pleural fluid labs are pending -pleural fluid Gram stain did not show any organisms, pleural fluid culture no growth so far -antibiotics as above (3) Acute renal failure superimposed on stage 3 chronic kidney disease: Code(s): N17.9 - Acute kidney failure, unspecified; N18.30 - Chronic kidney disease, stage 3 unspecified Status: Acute Assessment and Plan: Acute on chronic renal disease -creatinine on admission is 2.50 (normal creatinine is between 1.30-1.70) -patient receiving post catheterization IV fluids and creatinine is improved to 2.0 and and then levels leveled 03/07 episode of hypotension and patient also received contrast for CTA ordered by Cardiology to rule out any retroperitoneal hemorrhage after initiation of Eliquis and drop in blood pressure 03/08 creatinine increased 2.5. Patient was given 2 L of fluid bolus yesterday post CT and also is getting 500 mL of albumin 03/11 creatinine 3.1 03/09: Renal ultrasound -Bilateral cortical atrophy. Moderate right renal atrophy. Renal sinus lipomatosis. Small right pleural effusion. 03/15: Will DC sodium bicarbonate at this time, patient is hyperkalemia, will treat. Continue diuresis, creatinine trending down, continue to monitor -/ good urine output in response to diuresis, negative fluid balance in the last 24 hours, continue diuresis. Creatinine 1.70 this morning. Close to baseline Monitor urine output electrolytes and creatinine Nephrology is following (4) Hypernatremia: Code(s): E87.0 - Hyperosmolality and hypernatremia Status: Acute Assessment and Plan: Sodium levels of 149. Will increase free water push (5) Hyperkalemia: Code(s): E87.5 - Hyperkalemia Status: Acute Assessment and Plan: 03/16: Resolved Continue to monitor (6) ST elevation (STEMI) myocardial infarction: Code(s): I21.3 - ST elevation (STEMI) myocardial infarction of unspecified site Status: Acute Assessment and Plan: Inferior lateral ST-elevation PR status post PTCA/PCI w
[2024-03-19] MEDS: VANCOMYCIN 1,500 MG/NS 500 ML 1,500 MG/500 ML BAG 250 MG IVPB (09:53)
--- NOTE | 2024-03-19 10:20 | PM.PNNEP ---
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(?) cannot r/o an element of CKD progression second insult likely due to fluctuating hypotension/hemodynamic instability fluctuating H/H Afib with RVR contrast (cardiac cath + CT scan) UTI evaluation to date noted: urine eosinophil negative urine electrolytes prerenal mild proteinuria CPK normal renal ultrasound c/w CKD follow trend of repeat labs and UOP (2) Chronic kidney disease, stage 3: Code(s): N18.3 - Chronic kidney disease, stage 3 (moderate) Status: Chronic Assessment and Plan: baseline creatinine seems to run ~ 1.4 - 1.7mg/dl this would cause him to fluctuate between CKD stage 3A and stage 3B likely secondary to hypertension, diabetes, severe vascular disease (CAD + PAD + hyperlipidemia), and age (3) Hyperkalemia: Code(s): E87.5 - Hyperkalemia Status: Acute Assessment and Plan: resolved presumably due to #1 off lokelma follow repeat K+ levels (4) Acute respiratory failure: Code(s): J96.00 - Acute respiratory failure, unspecified whether with hypoxia or hypercapnia Status: Acute Assessment and Plan: suspect multifactorial etiology: large left pleural effusion/ whiteout of left hemithorax hypoxia AMS/encephalopathy intubated on 03/15/24 initiated on broad spectrum antibiotics diuresis as tolerated (on IV lasix) follow culture data continue bronchodilator therapy (5) Pleural effusion, left: Code(s): J90 - Pleural effusion, not elsewhere classified Status: Acute Assessment and Plan: as noted by recent CXR contributing component to #4 s/p left thoracentesis by IR on 03/15/24 pleural fluid studies/analysis noted on antibiotics (6) ST elevation (STEMI) myocardial infarction: Code(s): I21.3 - ST elevation (STEMI) myocardial infarction of unspecified site Status: Acute Assessment and Plan: admission EKG showed inferior lateral ST-elevation [place] s/p cardiac cath with PTCA/PCI with KENYA x 1 to mid RCA which was 90% blocked no LV gram was performed due to renal dysfunction Cardiology following Echo results noted remains on DAPT and statin (7) Atrial fibrillation: Code(s): I48.91 - Unspecified atrial fibrillation Status: Acute Assessment and Plan: on amiodarone s/p cardioversion on 03/11 on anticoagulation Cardiology following (8) Anemia: Code(s): D64.9 - Anemia, unspecified Status: Acute Assessment and Plan: due in part to CKD and acute illness follow trend of H/H started Epogen while hospitalized given renal dysfunction (9) UTI (urinary tract infection): Code(s): N39.0 - Urinary tract infection, site not specified Status: Acute Assessment and Plan: urine culture with Proteus completed 7 day course of antibiotics (10) Insulin dependent type 2 diabetes mellitus: Code(s): E11.9 - Type 2 diabetes mellitus without complications; 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 Subjective Date/time seen: 03/19/24 10:20 Interval history: Follow-up for acute kidney injury/acute renal failure on chronic kidney disease. Remains intubated/sedated and on mechanical ventilation; renal function stable with good urine output in response to diuretic therapy; tolerating tube feeds and otherwise hemodynamically stable without the need for vasopressor therapy. Exam Narrative: General: elderly male intubated/sedated and on mechanical v
--- NOTE | 2024-03-19 10:20 | P.PNNP_ITS ---
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 * prerenal factors(?) * cannot r/o an element of CKD progression * second insult likely due to * fluctuating hypotension/hemodynamic instability * fluctuating H/H * Afib with RVR * contrast (cardiac cath + CT scan) * UTI * evaluation to date noted: * urine eosinophil negative * urine electrolytes prerenal * mild proteinuria * CPK normal * renal ultrasound c/w CKD * follow trend of repeat labs and UOP (2) Chronic kidney disease, stage 3: Code(s): N18.3 - Chronic kidney disease, stage 3 (moderate) Status: Chronic Assessment and Plan: * baseline creatinine seems to run ~ 1.4 - 1.7mg/dl * this would cause him to fluctuate between CKD stage 3A and stage 3B * likely secondary to hypertension, diabetes, severe vascular disease (CAD + PAD + hyperlipidemia), and age (3) Hyperkalemia: Code(s): E87.5 - Hyperkalemia Status: Acute Assessment and Plan: * resolved * presumably due to #1 * off lokelma * follow repeat K+ levels (4) Acute respiratory failure: Code(s): J96.00 - Acute respiratory failure, unspecified whether with hypoxia or hypercapnia Status: Acute Assessment and Plan: * suspect multifactorial etiology: * large left pleural effusion/ whiteout of left hemithorax * hypoxia * AMS/encephalopathy * intubated on 03/15/24 * initiated on broad spectrum antibiotics * diuresis as tolerated (on IV lasix) * follow culture data * continue bronchodilator therapy (5) Pleural effusion, left: Code(s): J90 - Pleural effusion, not elsewhere classified Status: Acute Assessment and Plan: * as noted by recent CXR * contributing component to #4 * s/p left thoracentesis by IR on 03/15/24 * pleural fluid studies/analysis noted * on antibiotics (6) ST elevation (STEMI) myocardial infarction: Code(s): I21.3 - ST elevation (STEMI) myocardial infarction of unspecified site Status: Acute Assessment and Plan: * admission EKG showed inferior lateral ST-elevation [place] * s/p cardiac cath with PTCA/PCI with KENYA x 1 to mid RCA which was 90% blocked * no LV gram was performed due to renal dysfunction * Cardiology following * Echo results noted * remains on DAPT and statin (7) Atrial fibrillation: Code(s): I48.91 - Unspecified atrial fibrillation Status: Acute Assessment and Plan: * on amiodarone * s/p cardioversion on 03/11 * on anticoagulation * Cardiology following (8) Anemia: Code(s): D64.9 - Anemia, unspecified Status: Acute Assessment and Plan: * due in part to CKD and acute illness * follow trend of H/H * started Epogen while hospitalized given renal dysfunction (9) UTI (urinary tract infection): Code(s): N39.0 - Urinary tract infection, site not specified Status: Acute Assessment and Plan: * urine culture with Proteus * completed 7 day course of antibiotics (10) Insulin dependent type 2 diabetes mellitus: Code(s): E11.9 - Type 2 diabetes mellitus without complications; Z79.4 - jail (current) use of insulin Status: Acute Assessment and Plan: * follow accu-cheks
--- NOTE | 2024-03-19 11:12 | PCNFU ---
Nutrition Follow-Up Complete: Increased protein energy needs related to mechanical ventilation as evidenced by NPO, need for full tube feeding Goal: Meet estimated protein energy needs Patient is progressing towards goal. We will continue current goal. Pt current nutrition is Nepro at 45 ml/hr with Prosource BID. Last recorded weight is 115.1 kg, down from 127.8 gm on admit-thoracentesis removed 550 ml. Bowel Motility:No BM reported. Labs Reviewed:Glu 155, GFR 41, NA 149, Hct 24.5, Hgb 7.4 Meds Noted:Miralax, Versed, Fentanyl, Protonix, Reglan, Lasix. Skin: WNL Additional Notes: Patient remains on mechanical vent. Tube feedings being tolerated of Nepro at 45 ml/hr. Protein Modular of Prosource providing an additional 160 kcals/40 gms protein. Total Nutrition: 1942 kcals/120 gm protein/720 ml water. Flush increased to 200 ml q 4 hours. Patient had Thoracentesis removing 550 ml fluid on 03/18. Agree with diet orders at this time. Monitoring tube feeding tolerance, weights, labs, output, plan of care Follow in rounds, reassess Monday and Monday per policy
[2024-03-19] MEDS: MIDAZOLAM 100MG/NS 100ML(*CRX) 100 MG/100 ML BAG IV CONT (11:35)
[2024-03-19 11:37] LABS: Glucose Point of Care 227 mg/dl (65-105)
[2024-03-19] MEDS: INSULIN GLARGINE (*BKC) 100 UNITS/ML 30 UNITS SUB-Q (12:46)
--- NOTE | 2024-03-19 13:24 | PM.PNCARD ---
Progress Note: A&P Assessment and Plan (1) ST elevation (STEMI) myocardial infarction: Code(s): I21.3 - ST elevation (STEMI) myocardial infarction of unspecified site Status: Acute Assessment and Plan: History of multivessel coronary disease admitted to the hospital on 03/[address] elevation [place], underwent successful percutaneous revascularization of his mid circumflex which was technically challenging because of his extensive vascular disease and difficult vascular access. Procedure was ultimately done with a good angiographic result. Previous stented vessels in his LAD and right mid right coronary were remaining patent. He has extensive peripheral vascular disease and has undergone right lower extremity amputation. Continue clopidogrel 75 mg daily, aspirin 81 mg daily, high intensity statin (2) Atrial fibrillation with RVR: Code(s): I48.91 - Unspecified atrial fibrillation Status: Acute Assessment and Plan: S/p DCCV this hospitalization. Had recurrence of AF RVR but back in sinus rhythm now. Anticoagulation has been held because of anemia requiring transfusion. Can consider resuming a/c if his H&H remains stable following this procedure. On oral amiodarone. Currently on 400 mg daily (3) Acute renal failure superimposed on stage 3 chronic kidney disease: Code(s): N17.9 - Acute kidney failure, unspecified; N18.30 - Chronic kidney disease, stage 3 unspecified Status: Acute Assessment and Plan: Multifactorial secondary to acute [place], hypotension, contrast exposure. 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 Status: Acute Assessment and Plan: Management per hospitalist service (6) Peripheral arterial disease: Code(s): I73.9 - Peripheral vascular disease, unspecified Status: Acute Assessment and Plan: On ASA, plavix, statin (7) Dyslipidemia: Code(s): E78.5 - Hyperlipidemia, unspecified Status: Acute Assessment and Plan: Continue high intensity statin (8) CHF (congestive heart failure): Code(s): I50.9 - Heart failure, unspecified Status: Acute Assessment and Plan: Status post thoracentesis (9) Pericardial effusion: Code(s): I31.39 - Other pericardial effusion (noninflammatory) Status: Acute Assessment and Plan: Large by CT scan. Will repeat an echo this week Subjective Date/time seen: 03/19/24 13:24 Interval history: Follow-up visit in this 63-year-old man with diffuse coronary and peripheral arterial disease. Presented to the hospital on 03/04/2024 with some neck pain and altered mental status. STEMI was declared because of inferolateral ST segment elevation. High-grade stenosis in the trunk of the circumflex was identified and treated with PCI as detailed in the catheterization lab report. Previous LAD and right coronary stents were patent. Patient remains hospitalized was having difficulty with recurrence of atrial fibrillation last evening. This was a accompanied by hypotension requiring transfer back to the ICU. Likely this is a combination of his atrial fib other medications that were on board for hypertension. He is receiving intravenous amiodarone at this time and persisting atrial fib with heart rate 100-110. He is resting relatively comfortably upon awakening he offers no specific complaints. Date of service 03/09/2024: He was not complaining of chest pain earlier today is reported but not complaints of significant reproducible chest pain worse with deep breathing, movement, coughing or any palpation. Morphine helps. BP variable, Khanh-Synephrine held secondary to hypertension. Date of servic
[2024-03-19 16:45] LABS: Glucose Point of Care 167 mg/dl (65-105)
--- NOTE | 2024-03-19 16:46 | PM.IMPN ---
Progress Note: A&P Assessment and Plan (1) Hypotension: Code(s): I95.9 - Hypotension, unspecified Status: Acute Assessment and Plan: Patient developed low BP on 03/07 and transferred to ICU due to hypotension. CTA Ch/A/P 03/07 showing large pericardial effusion, possible exudative and L>R pleural effusion. Bedside limited echo 03/[address] chest with large pericardial effusion. (2) Atrial fibrillation: Code(s): I48.91 - Unspecified atrial fibrillation Status: Acute Assessment and Plan: Eliquis added but held due to potential of bleeding He is on aspirin and Plavix He underwent DC Cardioversion 03/11 with pentecostalism of sinus rhythm using 200J x 1 Tele showing he is maintaining NSR. Started oral Amiodarone (3) ST elevation (STEMI) myocardial infarction: Code(s): I21.3 - ST elevation (STEMI) myocardial infarction of unspecified site Status: Acute Assessment and Plan: Patient presents with neck pain and found to have inferior and anterolateral ST-elevation [place]. Troponin normal x3. STEMI alert and patient went for [facility]: s/p PTCA/PCI with KENYA x1 to mid RCA which was 90% blocked and was the culprit vessel. No LV gram was performed due to acute on chronic kidney disease Echo showing EF 65-70%, Patient was started on aspirin, Plavix, rosuvastatin, (4) Acute renal failure superimposed on stage 3 chronic kidney disease: Code(s): N17.9 - Acute kidney failure, unspecified; N18.30 - Chronic kidney disease, stage 3 unspecified Status: Acute Assessment and Plan: CRF stage IV creatinine 2.8 and GFR 20 Creatinine slowly improving down to 2.2 today Diuresis started Nephrology following Creatinine improving and stable now (5) UTI (urinary tract infection): Code(s): N39.0 - Urinary tract infection, site not specified Status: Acute Assessment and Plan: Urine cultures and sensitivity. Proteus mirabilis Continue IV hydration. 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 The patient's blood glucose was reviewed on 4/30 Glucose better controlled Continue AccuCheks covering with sliding scale. Hypoglycemia protocol available as needed. Continue to monitor for now (7) Anemia: Code(s): D64.9 - Anemia, unspecified Status: Acute Assessment and Plan: Chronic anemia with Hgb mostly in the 8-9 range H&H 8.1/25.7. No need for transfusion will continue to monitor (8) Peripheral vascular disease: Code(s): I73.9 - Peripheral vascular disease, unspecified Status: Acute Assessment and Plan: Chronic -right BKA -dopplerable pedal pulses on the left (9) Chest pain: Code(s): R07.9 - Chest pain, unspecified Status: Acute Assessment and Plan: As above Plan Acute respiratory failure with hypoxia and hypercapnia. Repeat ABG stat improved however still confused on BiPAP. Intubated 03/15/2024. CT chest to with pneumonia started on vancomycin aztreonam and Flagyl. Follow cultures Encephalopathy confusion could be from hypoxia. CT head was negative Large left pleural effusion status post thoracentesis with removal of 500 cc of pleural fluid, underwent thoracentesis on the right with removal of 550 cc pleural for DVT prophylaxis. left leg SCDs code status full code GI prophylaxis. PPI Code status full code dictation may have been done utilizing a voice recognition system. Attempts have been made to correct errors. However, there may be uncorrected grammatical, spelling, and recognition errors present. Subjective Date/time seen: 03/19/24 16:47 Interval history: Remains intubated And
[2024-03-19 20:07] LABS: Glucose Point of Care 176 mg/dl (65-105)
[2024-03-19] MEDS: SENNA/DOCUSATE SODIUM TABLET 1 TAB PO (20:53)
[2024-03-19 23:36] LABS: Glucose Point of Care 177 mg/dl (65-105)
[2024-03-20] VITALS (34 sets, daily range): BP systolic 95–148; BP diastolic 38–87; PULSE 64–89; RESP 18–24; TEMP 37.1–38.2; O2SAT 96–100
[2024-03-20] MEDS: metroNIDAZOLE 500 MG/ISO 100ML 500 MG/100 ML BAG 100 MG IVPB ×3 (00:01→16:43)
[2024-03-20] MEDS: IPRATROPIUM 0.5 MG/ALBUTEROL SULFATE 2.5 MG AMPUL.NEB 3 ML INHALATION ×2 (02:49→07:39)
[2024-03-20 05:22] LABS: Base Excess ABG 3.7 mEq/l (+/-2.0); Carboxyhemoglobin 0.8 % THb (0-2.0); Fractional Inspired Oxygen 35 %; HCO3 ABG 30.4 mEq/l (22.0-26.0); Methemoglobin ABG 0.3 %THb (0-1.5); Oxygen Content ABG 15.2 %vol (16.0-22.0); Oxygen Saturation ABG 93.1 % (95.0-100.0); Oxyhemoglobin 92.6 % THb (90.0-100.0); PCO2 ABG 56.3 mmHg (35.0-45.0); PO2 ABG 70.6 mmHg (80.0-100.0); PO2 FiO2 Ratio Arterial Blood 2.02 %; Reduced Hemoglobin 6.3 %THb (0-5.0); Total Hemoglobin 11.6 g/dL (12.0-18.0)
[2024-03-20 05:30] LABS: Modified Allen's Test Pass; Site Drawn LEFT RADIAL
[2024-03-20 05:31] LABS: Device VENTILATOR
[2024-03-20 05:32] LABS: Arterial Blood Gas PEEP 10 cmH2O; Arterial Blood Gas Tidal Volume 450 ml; Arterial Blood Gas Vent Mode CMV; Arterial Blood Gas Ventilator rate 20 /MIN
[2024-03-20] MEDS: FENTANYL 2,500MCG/NS250ML(*CRX 2,500 MCG/250 ML BAG 7.5 MCG IV CONT (06:02)
[2024-03-20] MEDS: MIDAZOLAM 100MG/NS 100ML(*CRX) 100 MG/100 ML BAG IV CONT (06:04)
--- NOTE | 2024-03-20 07:33 | WPDINTPN ---
Progress Note: A&P Assessment and Plan (1) Acute respiratory failure: Code(s): J96.00 - Acute respiratory failure, unspecified whether with hypoxia or hypercapnia <Marianne Benzbernadette Student - Last Filed: 03/20/24 10:36> Status: Acute <Marianne Vega Student - Last Filed: 03/20/24 10:36> Assessment and Plan: Acute respiratory failure likely related to large left pleural effusion, hypoxia, encephalopathy, mottling, requiring intubation on 03/15/24. 03/18: Pleural effusion improving clinically and radiographically Microbiology studies: -03/16 Blood cx: no growth to date -03/16 Sputum cx: MRSA growth -03/16 Urine cx no growth -03/15 Left Pleural fluid: no organisms seen, pending cultures and cytology -03/18 Right pleural fluid: no organisms seen -continue CMV mode of ventilation, PEEP 10, FiO2 35% -continue vancomycin, aztreonam, Flagyl (03/16) -sedated with fentanyl and Versed infusion, maintain RASS of 0 to -2, daily sedation vacation -continue bronchodilators -continue diuresis -Advance ET tube by 3 cm inferiorly and recheck position on CXR -Hold sedation and trial SBT today 03/16/2024: CT chest/Abdomen/Pelvis non contrast IMPRESSION: 1. Lines and tubes in expected position. 2. Persistent consolidation in the left mid to lower lung zone correspond to a small left pleural effusion and associated atelectasis on prior CT. Superimposed pneumonia not excludable. 3. Increasing pulmonary vascular congestion with indistinct interstitial and hazy airspace opacity right mid to lower lung zone likely combination of mild pulmonary edema or pneumonia superimposed over a small to moderate-sized right pleural effusion which is much better appreciated on prior CT. 4. Large cardiac silhouette on prior CT correspond to a large pericardial effusion. (2) Pleural effusion, left: ?Code(s): J90 - Pleural effusion, not elsewhere classified ?Status:?Acute ?Assessment and Plan: Large left pleural effusion -03/15:? Left thoracentesis with drainage of 500 mL of yellowish fluid 03/18 repeat thoracentesis on the left 550 mL fluid was removed -pleural fluid labs are pending -pleural fluid Gram stain did not show any organisms, pleural fluid culture no growth so far -antibiotics as above (3) Acute renal failure superimposed on stage 3 chronic kidney disease: ?Code(s): N17.9 - Acute kidney failure, unspecified; N18.30 - Chronic kidney disease, stage 3 unspecified ?Status:?Acute ?Assessment and Plan: Acute on chronic renal disease -creatinine on admission is 2.50 (normal creatinine is between 1.30-1.70) -patient receiving post catheterization IV fluids and creatinine is improved to 2.0 and and then levels leveled 03/07 episode of hypotension and patient also received contrast for CTA ordered by Cardiology to rule out any retroperitoneal hemorrhage after initiation of Eliquis and drop in blood pressure 03/08 creatinine increased 2.5.? Patient was given 2 L of fluid bolus yesterday post CT and also is getting 500 mL of albumin 03/11 creatinine 3.1 03/09: Renal ultrasound -Bilateral cortical atrophy. Moderate right renal atrophy. Renal sinus lipomatosis. Small right pleural effusion. 03/15: Will DC sodium bicarbonate at this time, patient is hyperkalemia, will treat.? Continue diuresis, creatinine trending down, continue to monitor -5/6 good urine output in response to diuresis, negative fluid balance in the last 24 hours, continue diuresis.? Creatinine 1.70 this morning.? Close to baseline Monitor urine output electrolytes and creatinine Nephrology is following (4) Hypernatremia: ?Code(s): E87.0 - Hyperosmolality and hypernatremia ?Status:?Acute ?Assessment and Plan: ?Sodium levels of 146, improved with increased free water flushes Continue to monitor (5) Hyperkalemia: ?Code(s): E87.5 - Hyperkalemia ?Status:?Acute ?Assessment and Plan: 03/16:? Resolved Continue to monitor (6) ST elevation (STEMI) my
[2024-03-20] MEDS: ASPIRIN 81 MG CHEWABLE TABLET PO (07:54)
[2024-03-20] MEDS: CENTRAL LINE FLUSH 10 ML IV PUSH ×3 (07:55→20:14)
[2024-03-20] MEDS: AZTREONAM 2 GM in SODIUM CHLORIDE 0.9% IV 100 ML 200 ML IVPB ×2 (07:55→16:33)
[2024-03-20 07:56] LABS: Basophils Percent Auto 0.1 % (0.2-1.2); Eosinophils Absolute Auto 0.2 K/mm3 (0-0.3); Hematocrit 28.2 % (42.0-52.0); Hemoglobin 8.1 g/dL (14.0-18.0); Immature Granulocyte Absolute 0.11 K/mm3 (0.00-0.031); Immature Granulocyte Percent A 0.6 % (0-0.5); Lymphocytes Absolute Auto 1.26 K/mm3 (0.9-3.2); Lymphocytes Percent Auto 7.4 % (18.3-44.2); Mean Corpuscular HGB Conc 28.7 g/dl (32-36); Mean Corpuscular Hemoglobin 28.9 pg (26-34); Mean Corpuscular Volume 100.7 fl (80-100); Mean Platelet Volume 11.1 fl (7.4-10.4); Monocytes Absolute Auto 0.7 K/mm3 (0.1-0.6); Monocytes Percent Auto 3.9 % (2.6-8.5); Neutrophils Absolute Auto 14.8 K/mm3 (1.3-6.7); Platelet Count Result 212 k/mm3 (150-375); Red Cell Distribution Width 17.6 % (11.5-14.5)
[2024-03-20 08:07] LABS: Alanine Aminotransferase 19 U/L (6-50); Albumin Level 3.3 g/dL (3.5-5.1); Alkaline Phosphatase 90 U/L (38-126); Anion Gap 2 mmol/L (4-12); Aspartate Amino Transferase 26 U/L (17-59); Bilirubin,Total 0.4 mg/dL (0.2-1.3); Blood Urea Nitrogen 72 mg/dL (9-20); Calcium 8.8 mg/dL (8.4-10.2); Carbon Dioxide 34 mmol/L (22-30); Chloride 110 mmol/L (98-107); Estimated CRCL calculation 47 ml/min; Estimated Glomerular Filt Rate 38; Glucose 232 mg/dL (65-110); Potassium 4.3 mmol/L (3.4-5.0); Sodium 146 mmol/L (137-145)
--- NOTE | 2024-03-20 08:20 | PC.NURSE ---
0746-Sedation put on hold per doctor order.
[2024-03-20] MEDS: METOCLOPRAMIDE HCL 10 MG TABLET FEED TUBE ×2 (08:27→14:33)
[2024-03-20] MEDS: AMIODARONE HCL 200 MG TABLET 400 MG PO (08:27)
[2024-03-20] MEDS: CLOPIDOGREL BISULFATE 75 MG TABLET PO (08:28)
[2024-03-20] MEDS: ENOXAPARIN 40 MG/0.4 ML SYRINGE SUB-Q (08:28)
[2024-03-20] MEDS: FUROSEMIDE INJ 40 MG/4 ML VIAL IV PUSH ×2 (08:29→20:13)
[2024-03-20] MEDS: MINERAL OIL/WHITE PETROLATUM OINTMENT 1 APPLIC EACH EYE ×2 (08:29→20:14)
[2024-03-20] MEDS: ROSUVASTATIN 10 MG TABLET 20 MG PO (08:30)
[2024-03-20] MEDS: PANTOPRAZOLE SODIUM IV 40 MG VIAL IV PUSH ×2 (08:30→20:07)
[2024-03-20] MEDS: INSULIN ASPART (*BKC) 100 UNITS/ML SUB-Q ×3 (08:30→16:42)
[2024-03-20] MEDS: polyethylene glycoL 3350 17 GM POWD.PACK PO (08:30)
[2024-03-20] MEDS: INSULIN GLARGINE (*BKC) 100 UNITS/ML 30 UNITS SUB-Q (08:31)
[2024-03-20 08:40] LABS: Glucose Point of Care 210 mg/dl (65-105)
[2024-03-20 08:42] LABS: Vancomycin Trough 22.3 ug/mL (10.0-20.0)
[2024-03-20 09:08] LABS: Anisocytosis 1+; Platelet Estimate Adequate (Adequate); Schistocytes None Seen
[2024-03-20 09:09] LABS: Hypochromasia 1+; Target Cells 1+
[2024-03-20] MEDS: EPOETIN ALFA-EPBX 10,000 UNITS/ML VIAL 10000 UNITS SUB-Q (09:31)
[2024-03-20 10:22] LABS: Alveolar/Arterial O2 Gradient 103.4 mmHg; Base Excess ABG 5.1 mEq/l (+/-2.0); Carboxyhemoglobin 0.3 % THb (0-2.0); Device VENTILATOR; Fractional Inspired Oxygen 35 %; HCO3 ABG 31.4 mEq/l (22.0-26.0); Methemoglobin ABG 0.3 %THb (0-1.5); Modified Allen's Test Pass; Oxygen Content ABG 12.9 %vol (16.0-22.0); Oxygen Saturation ABG 95.4 % (95.0-100.0); Oxyhemoglobin 94.1 % THb (90.0-100.0); PCO2 ABG 55.9 mmHg (35.0-45.0); PO2 ABG 81.2 mmHg (80.0-100.0); PO2 FiO2 Ratio Arterial Blood 2.32 %; Reduced Hemoglobin 5.3 %THb (0-5.0); Site Drawn RIGHT RADIAL; Total Hemoglobin 9.7 g/dL (12.0-18.0); pH ABG 7.367 (7.350-7.450)
[2024-03-20 10:23] LABS: Arterial Blood Gas PEEP 8 cmH2O; Arterial Blood Gas Pressure Support 5 cmH2O; Arterial Blood Gas Vent Mode SPONTANEOUS
[2024-03-20 10:51] LABS: Triglycerides 63 mg/dL (<150)
--- NOTE | 2024-03-20 10:55 | PCFNICU ---
ICU Rounding Note: Pt current nutrition is Nepro at 45 ml/hr with Prosource BID. Last recorded weight is 107 kg, down from 127.8 kg on admit. Bowel Motility:No BM reported-patient is on Miralax. Labs Reviewed: Glu 232, Cr 1.8,BUN 72, GFR 38, Na 146 Meds Noted: Reglan, Miralax, Fentanyl, Versed, Lasix, Protonix Skin: DTI-coccyx. Additional Notes: Patient remains on mechanical vent. Sedation is on hold for breathing trail. Tube feeding order remain on Nepro at 45 ml/hr and being tolerating per nursing. Protein Modular of Prosource BID for additional providing providing 160 kcal and 40 gm protien. Possible extubated today if patient able to tolerate breathing trial. Agree with diet orders. Following daily in ICU rounds. Monitoring tube feeding tolerance, weights, labs, output, plan of care Follow in rounds, reassess Monday and Monday per policy.
[2024-03-20] MEDS: INSULIN GLARGINE (*BKC) 100 UNITS/ML 10 UNITS SUB-Q (10:57)
[2024-03-20] MEDS: PROPOFOL IV EMULSION 100 ML 3.21 MG IV CONT (11:30)
[2024-03-20 11:46] LABS: Glucose Point of Care 231 mg/dl (65-105)
--- NOTE | 2024-03-20 11:52 | P.PNNP_ITS ---
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 * prerenal factors(?) * cannot r/o an element of CKD progression * second insult likely due to * fluctuating hypotension/hemodynamic instability * fluctuating H/H * Afib with RVR * contrast (cardiac cath + CT scan) * UTI * evaluation to date noted: * urine eosinophil negative * urine electrolytes prerenal * mild proteinuria * CPK normal * renal ultrasound c/w CKD * follow trend of repeat labs and UOP (2) Chronic kidney disease, stage 3: Code(s): N18.3 - Chronic kidney disease, stage 3 (moderate) Status: Chronic Assessment and Plan: * baseline creatinine seems to run ~ 1.4 - 1.7mg/dl * this would cause him to fluctuate between CKD stage 3A and stage 3B * likely secondary to hypertension, diabetes, severe vascular disease (CAD + PAD + hyperlipidemia), and age (3) Hyperkalemia: Code(s): E87.5 - Hyperkalemia Status: Acute Assessment and Plan: * resolved * presumably due to #1 * off lokelma * follow repeat K+ levels (4) Acute respiratory failure: Code(s): J96.00 - Acute respiratory failure, unspecified whether with hypoxia or hypercapnia Status: Acute Assessment and Plan: * suspect multifactorial etiology: * large left pleural effusion/ whiteout of left hemithorax * hypoxia * AMS/encephalopathy * intubated on 03/15/24 * initiated on broad spectrum antibiotics * diuresis as tolerated (on IV lasix) * follow culture data * continue bronchodilator therapy (5) Pleural effusion, left: Code(s): J90 - Pleural effusion, not elsewhere classified Status: Acute Assessment and Plan: * as noted by recent CXR * contributing component to #4 * s/p left thoracentesis by IR on 03/15/24 * pleural fluid studies/analysis noted * on antibiotics (6) ST elevation (STEMI) myocardial infarction: Code(s): I21.3 - ST elevation (STEMI) myocardial infarction of unspecified site Status: Acute Assessment and Plan: * admission EKG showed inferior lateral ST-elevation CO * s/p cardiac cath with PTCA/PCI with KENYA x 1 to mid RCA which was 90% blocked * no LV gram was performed due to renal dysfunction * Cardiology following * Echo results noted * remains on DAPT and statin (7) Atrial fibrillation: Code(s): I48.91 - Unspecified atrial fibrillation Status: Acute Assessment and Plan: * on amiodarone * s/p cardioversion on 03/11 * on anticoagulation * Cardiology following (8) Anemia: Code(s): D64.9 - Anemia, unspecified Status: Acute Assessment and Plan: * due in part to CKD and acute illness * follow trend of H/H * started Epogen while hospitalized given renal dysfunction (9) UTI (urinary tract infection): Code(s): N39.0 - Urinary tract infection, site not specified Status: Acute Assessment and Plan: * urine culture with Proteus * completed 7 day course of antibiotics (10) Insulin dependent type 2 diabetes mellitus: Code(s): E11.9 - Type 2 diabetes mellitus without complications; Z79.4 - residential (current) use of insulin Status: Acute Assessment and Plan: * follow accu-cheks * glycemic co
--- NOTE | 2024-03-20 11:52 | PM.PNNEP ---
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 prerenal factors(?) cannot r/o an element of CKD progression second insult likely due to fluctuating hypotension/hemodynamic instability fluctuating H/H Afib with RVR contrast (cardiac cath + CT scan) UTI evaluation to date noted: urine eosinophil negative urine electrolytes prerenal mild proteinuria CPK normal renal ultrasound c/w CKD follow trend of repeat labs and UOP (2) Chronic kidney disease, stage 3: Code(s): N18.3 - Chronic kidney disease, stage 3 (moderate) Status: Chronic Assessment and Plan: baseline creatinine seems to run ~ 1.4 - 1.7mg/dl this would cause him to fluctuate between CKD stage 3A and stage 3B likely secondary to hypertension, diabetes, severe vascular disease (CAD + PAD + hyperlipidemia), and age (3) Hyperkalemia: Code(s): E87.5 - Hyperkalemia Status: Acute Assessment and Plan: resolved presumably due to #1 off lokelma follow repeat K+ levels (4) Acute respiratory failure: Code(s): J96.00 - Acute respiratory failure, unspecified whether with hypoxia or hypercapnia Status: Acute Assessment and Plan: suspect multifactorial etiology: large left pleural effusion/ whiteout of left hemithorax hypoxia AMS/encephalopathy intubated on 03/15/24 initiated on broad spectrum antibiotics diuresis as tolerated (on IV lasix) follow culture data continue bronchodilator therapy (5) Pleural effusion, left: Code(s): J90 - Pleural effusion, not elsewhere classified Status: Acute Assessment and Plan: as noted by recent CXR contributing component to #4 s/p left thoracentesis by IR on 03/15/24 pleural fluid studies/analysis noted on antibiotics (6) ST elevation (STEMI) myocardial infarction: Code(s): I21.3 - ST elevation (STEMI) myocardial infarction of unspecified site Status: Acute Assessment and Plan: admission EKG showed inferior lateral ST-elevation [place] s/p cardiac cath with PTCA/PCI with KENYA x 1 to mid RCA which was 90% blocked no LV gram was performed due to renal dysfunction Cardiology following Echo results noted remains on DAPT and statin (7) Atrial fibrillation: Code(s): I48.91 - Unspecified atrial fibrillation Status: Acute Assessment and Plan: on amiodarone s/p cardioversion on 03/11 on anticoagulation Cardiology following (8) Anemia: Code(s): D64.9 - Anemia, unspecified Status: Acute Assessment and Plan: due in part to CKD and acute illness follow trend of H/H started Epogen while hospitalized given renal dysfunction (9) UTI (urinary tract infection): Code(s): N39.0 - Urinary tract infection, site not specified Status: Acute Assessment and Plan: urine culture with Proteus completed 7 day course of antibiotics (10) Insulin dependent type 2 diabetes mellitus: Code(s): E11.9 - Type 2 diabetes mellitus without complications; Z79.4 - residential (current) use of insulin Status: Acute Assessment and Plan: follow accu-cheks 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 Subjective Date/time seen: 03/20/24 11:52 Interval history: Follow-up for acute kidney injury/acute renal failure on chronic kidney disease. No real significant change noted since I last saw him; remians intubated/sedated and on mechanical ventilation; making reasonable urine output with diureitc therapy but in positive fluid balance in the last 24 hours; remains hemodynamically stable. Exam Narrative: General: elderly male intubated/sedated and on mechanical ventila
[2024-03-20 16:43] LABS: Glucose Point of Care 201 mg/dl (65-105)
[2024-03-20] MEDS: PROPOFOL IV EMULSION 100 ML 9.63 MG IV CONT (18:44)
[2024-03-20 20:01] LABS: Glucose Point of Care 180 mg/dl (65-105)
[2024-03-20] MEDS: SENNA/DOCUSATE SODIUM TABLET 1 TAB PO (20:13)
[2024-03-20] MEDS: VANCOMYCIN 1,500 MG/NS 500 ML 1,500 MG/500 ML BAG 250 MG IVPB (20:14)
[2024-03-21] VITALS (31 sets, daily range): BP systolic 96–180; BP diastolic 42–68; PULSE 67–97; RESP 14–30; TEMP 37.1–37.8; O2SAT 84–100
--- NOTE | 2024-03-21 | ECHOL_ITS ---
Patient Info Name: Noel Rodriguez Age: 63 years : 1960 Gender: Male Ht: 70 in Wt: 258 lbs BSA: 2.45 m2 HR: 93 bpm BP: 143 / 53 mmHg Heart Rhythm: Sinus Rhythm Technical Quality: Fair Exam Date: 03/21/2024 2:18 PM Exam Location: Echo Lab Patient Status: Inpatient Admit Date: 03/04/2024 Staff Ordering Physician: Belle Baker MD (jose g/jarrett) Flight Operations Coordinator: Vincent Leach RDCS Attending Provider: Horacio Cleaning MD Referring Physician: Samuel MARQUEZ; Exam Type: CA echo limited Study Info Indications - pericardial effusion Limited two-dimensional transthoracic echocardiogram is performed. Summary 1. Normal left ventricular size and systolic contractility. 2. Normal right ventricular size, no sign of right ventricular diastolic collapse. 3. Small to moderate-sized circumferential pericardial. 1.5 cm anterior and 2.0 cm posterior to the heart+. 4. Mildly sclerotic aortic valve. Left Ventricle Left ventricular chamber dimension is normal. Left ventricular systolic function is normal, estimated at 60-65%. Right Ventricle Right ventricular chamber dimension is normal. Left Atria Left atrial chamber dimension is normal. Right Atria Right atrial chamber dimension is normal. Aortic Valve The aortic valve is trileaflet. There is mild aortic valve sclerosis. Pulmonic Valve The pulmonic valve is not well visualized. Mitral Valve The mitral valve has normal leaflets. Tricuspid Valve The tricuspid valve leaflets are normal. Pericardium/Pleural There is small circumferential pericardial effusion. Aorta The aortic root size at the sinus of Valsalva is normal. Report Signatures
[2024-03-21] MEDS: AZTREONAM 2 GM in SODIUM CHLORIDE 0.9% IV 100 ML 200 ML IVPB ×3 (00:42→17:03)
[2024-03-21] MEDS: metroNIDAZOLE 500 MG/ISO 100ML 500 MG/100 ML BAG 100 MG IVPB (00:43)
[2024-03-21] MEDS: METOCLOPRAMIDE HCL 10 MG TABLET FEED TUBE ×4 (00:43→17:03)
[2024-03-21 00:59] LABS: Glucose Point of Care 196 mg/dl (65-105)
[2024-03-21] MEDS: PROPOFOL IV EMULSION 100 ML 10.53 MG IV CONT (04:19)
[2024-03-21] MEDS: INSULIN ASPART (*BKC) 100 UNITS/ML SUB-Q ×5 (04:21→20:30)
[2024-03-21 04:50] LABS: Glucose Point of Care 227 mg/dl (65-105)
[2024-03-21 04:58] LABS: Alveolar/Arterial O2 Gradient 112.6 mmHg; Base Excess ABG 6.7 mEq/l (+/-2.0); Carboxyhemoglobin 0.9 % THb (0-2.0); Fractional Inspired Oxygen 35 %; HCO3 ABG 31.8 mEq/l (22.0-26.0); Methemoglobin ABG 0.3 %THb (0-1.5); Oxygen Content ABG 11.6 %vol (16.0-22.0); Oxygen Saturation ABG 95.9 % (95.0-100.0); Oxyhemoglobin 94.9 % THb (90.0-100.0); PCO2 ABG 49.4 mmHg (35.0-45.0); PO2 ABG 79.5 mmHg (80.0-100.0); PO2 FiO2 Ratio Arterial Blood 2.27 %; Reduced Hemoglobin 3.9 %THb (0-5.0); Total Hemoglobin 8.6 g/dL (12.0-18.0); pH ABG 7.427 (7.350-7.450)
[2024-03-21 05:00] LABS: Arterial Blood Gas PEEP 8 cmH2O; Arterial Blood Gas Tidal Volume 450 ml; Arterial Blood Gas Vent Mode CMV; Arterial Blood Gas Ventilator rate 20 /MIN; Device VENTILATOR; Modified Allen's Test Pass; Site Drawn RIGHT RADIAL
[2024-03-21] MEDS: CENTRAL LINE FLUSH 10 ML IV PUSH ×3 (05:12→20:29)
[2024-03-21 06:05] LABS: Alanine Aminotransferase 17 U/L (6-50); Albumin Level 3.2 g/dL (3.5-5.1); Alkaline Phosphatase 90 U/L (38-126); Anion Gap 5 mmol/L (4-12); Aspartate Amino Transferase 23 U/L (17-59); Bilirubin,Total 0.4 mg/dL (0.2-1.3); Blood Urea Nitrogen 83 mg/dL (9-20); Calcium 8.6 mg/dL (8.4-10.2); Carbon Dioxide 31 mmol/L (22-30); Chloride 112 mmol/L (98-107); Estimated CRCL calculation 49 ml/min; Estimated Glomerular Filt Rate 38; Glucose 232 mg/dL (65-110); Magnesium 2.1 mg/dL (1.6-2.3); Phosphorus 3.2 mg/dL (2.5-4.5); Potassium 3.7 mmol/L (3.4-5.0); Sodium 148 mmol/L (137-145)
[2024-03-21 06:53] LABS: Basophils Percent Auto 0.2 % (0.2-1.2); Eosinophils Absolute Auto 0.2 K/mm3 (0-0.3); Eosinophils Percent Auto 1.2 % (0-4.4); Hematocrit 28.7 % (42.0-52.0); Hemoglobin 8.2 g/dL (14.0-18.0); Immature Granulocyte Absolute 0.11 K/mm3 (0.00-0.031); Immature Granulocyte Percent A 0.7 % (0-0.5); Lymphocytes Absolute Auto 1.55 K/mm3 (0.9-3.2); Lymphocytes Percent Auto 9.5 % (18.3-44.2); Mean Corpuscular HGB Conc 28.6 g/dl (32-36); Mean Corpuscular Hemoglobin 28.4 pg (26-34); Mean Corpuscular Volume 99.3 fl (80-100); Mean Platelet Volume 12.2 fl (7.4-10.4); Monocytes Absolute Auto 0.7 K/mm3 (0.1-0.6); Monocytes Percent Auto 4.2 % (2.6-8.5); Neutrophils Absolute Auto 13.8 K/mm3 (1.3-6.7); Neutrophils Percent Auto 84.2 % (45.5-73.1); Platelet Count Result 213 k/mm3 (150-375); Red Blood Count 2.89 M/mm3 (4.6-6.20); Red Cell Distribution Width 17.4 % (11.5-14.5); White Blood Count 16.3 K/mm3 (4.5-10.0)
[2024-03-21 07:53] LABS: Glucose Point of Care 207 mg/dl (65-105)
[2024-03-21 08:06] LABS: Anisocytosis 1+; Hypochromasia 1+; Platelet Estimate Adequate (Adequate); Schistocytes None Seen
--- NOTE | 2024-03-21 08:12 | WPDINTPN ---
Progress Note: A&P Assessment and Plan (1) Acute respiratory failure: Qualifiers: Respiratory failure complication: unspecified whether with hypoxia or hypercapnia Qualified Code(s): J96.00 - Acute respiratory failure, unspecified whether with hypoxia or hypercapnia <Mariannedelonte Vega Student - Last Filed: 03/21/24 10:40> Code(s): J96.00 - Acute respiratory failure, unspecified whether with hypoxia or hypercapnia <Marianne Vega, Student - Last Filed: 03/21/24 10:40> Status: Acute <Mariannedelonte Vega Student - Last Filed: 03/21/24 10:40> Assessment and Plan: ? Acute respiratory failure likely related to large left pleural effusion, hypoxia, encephalopathy, mottling, requiring intubation on 03/15/24. 03/18: Pleural effusion improving clinically and radiographically Microbiology studies: -03/16 Blood cx: no growth to date -03/16 Sputum cx: MRSA growth -03/16 Urine cx no growth -03/15 Left Pleural fluid: no organisms seen, pending cultures and cytology -03/18 Right pleural fluid: no organisms seen. Pathology report without malignancy, pending cytology -sedation fentanyl and Versed infusion, maintain RASS of 0 to -2, daily sedation vacation -CMV mode of ventilation, PEEP 8, FiO2 35% -ABG reviewed. pH 7.43, CO2 49, HCO3 32 -continue bronchodilators -continue diuresis -continue vancomycin, aztreonam (03/16) for seven days -Completed 5 day course of Flagyl -Hold sedation and trial extubation today 03/16/2024: CT chest/Abdomen/Pelvis non contrast IMPRESSION: 1. Lines and tubes in expected position. 2. Persistent consolidation in the left mid to lower lung zone correspond to a small left pleural effusion and associated atelectasis on prior CT. Superimposed pneumonia not excludable. 3. Increasing pulmonary vascular congestion with indistinct interstitial and hazy airspace opacity right mid to lower lung zone likely combination of mild pulmonary edema or pneumonia superimposed over a small to moderate-sized right pleural effusion which is much better appreciated on prior CT. 4. Large cardiac silhouette on prior CT correspond to a large pericardial effusion. <Marianne Vega, Student - Last Filed: 03/21/24 10:40> ? Acute respiratory failure likely related to large left pleural effusion, hypoxia, encephalopathy, mottling, requiring intubation on 03/15/24. 03/18: Pleural effusion improving clinically and radiographically Microbiology studies: -03/16 Blood cx: no growth to date -03/16 Sputum cx: MRSA growth -03/16 Urine cx no growth -03/15 Left Pleural fluid: no organisms seen, pending cultures and cytology -03/18 Right pleural fluid: no organisms seen. Pathology report without malignancy, pending cytology -sedation fentanyl and Versed infusion, maintain RASS of 0 to -2, daily sedation vacation -CMV mode of ventilation, PEEP 8, FiO2 35% -ABG reviewed. pH 7.43, CO2 49, HCO3 32 -continue bronchodilators -continue diuresis -continue vancomycin, aztreonam (03/16) for seven days -Completed 5 day course of Flagyl -Hold sedation and weaning trial potential extubation today 03/16/2024: CT chest/Abdomen/Pelvis non contrast IMPRESSION: 1. Lines and tubes in expected position. 2. Persistent consolidation in the left mid to lower lung zone correspond to a small left pleural effusion and associated atelectasis on prior CT. Superimposed pneumonia not excludable. 3. Increasing pulmonary vascular congestion with indistinct interstitial and hazy airspace opacity right mid to lower lung zone likely combination of mild pulmonary edema or pneumonia superimposed over a small to moderate-sized right pleural effusion which is much better appreciated on prior CT. 4. Large cardiac silhouette on prior CT correspond to a large pericardial effusion. <Eliezer Patiño MD - Last Filed: 03/21/24 10:43> (2) Pleural effusion, left: Code(s): J90 - Pleural effusion, not elsewhere classified <Marianne Vega, Student - Last Filed: 03/21/24 10:
[2024-03-21] MEDS: ASPIRIN 81 MG CHEWABLE TABLET PO (08:53)
[2024-03-21] MEDS: ROSUVASTATIN 10 MG TABLET 20 MG PO (08:53)
[2024-03-21] MEDS: CLOPIDOGREL BISULFATE 75 MG TABLET PO (08:55)
[2024-03-21] MEDS: PANTOPRAZOLE SODIUM IV 40 MG VIAL IV PUSH ×2 (08:55→20:28)
[2024-03-21] MEDS: ENOXAPARIN 40 MG/0.4 ML SYRINGE SUB-Q (08:55)
[2024-03-21] MEDS: AMIODARONE HCL 200 MG TABLET 400 MG PO (08:55)
[2024-03-21] MEDS: polyethylene glycoL 3350 17 GM POWD.PACK PO (08:55)
[2024-03-21] MEDS: MINERAL OIL/WHITE PETROLATUM OINTMENT 1 APPLIC EACH EYE ×2 (08:56→20:29)
[2024-03-21] MEDS: INSULIN GLARGINE (*BKC) 100 UNITS/ML 40 UNITS SUB-Q (08:58)
--- NOTE | 2024-03-21 09:14 | PM.PNCARD ---
Progress Note: A&P Assessment and Plan (1) ST elevation (STEMI) myocardial infarction: Code(s): I21.3 - ST elevation (STEMI) myocardial infarction of unspecified site Status: Acute Assessment and Plan: History of multivessel coronary disease admitted to the hospital on 03/[address] elevation [place], underwent successful percutaneous revascularization of his mid circumflex which was technically challenging because of his extensive vascular disease and difficult vascular access. Procedure was ultimately done with a good angiographic result. Previous stented vessels in his LAD and right mid right coronary were remaining patent. He has extensive peripheral vascular disease and has undergone right lower extremity amputation. Continue clopidogrel 75 mg daily, aspirin 81 mg daily, high intensity statin (2) Atrial fibrillation with RVR: Code(s): I48.91 - Unspecified atrial fibrillation Status: Acute Assessment and Plan: S/p DCCV this hospitalization. Had recurrence of AF RVR but back in sinus rhythm now. Anticoagulation has been held because of anemia requiring transfusion. Can consider resuming a/c if his H&H remains stable following this procedure. On oral amiodarone. Currently on 400 mg daily (3) Acute renal failure superimposed on stage 3 chronic kidney disease: Code(s): N17.9 - Acute kidney failure, unspecified; N18.30 - Chronic kidney disease, stage 3 unspecified Status: Acute Assessment and Plan: Multifactorial secondary to acute [place], hypotension, contrast exposure. Nephrology consulted and following along. 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 Status: Acute Assessment and Plan: Management per hospitalist service (6) Peripheral arterial disease: Code(s): I73.9 - Peripheral vascular disease, unspecified Status: Acute Assessment and Plan: On ASA, plavix, statin (7) Dyslipidemia: Code(s): E78.5 - Hyperlipidemia, unspecified Status: Acute Assessment and Plan: Continue high intensity statin (8) CHF (congestive heart failure): Code(s): I50.9 - Heart failure, unspecified Status: Acute Assessment and Plan: Status post thoracentesis (9) Pericardial effusion: Code(s): I31.39 - Other pericardial effusion (noninflammatory) Status: Acute Assessment and Plan: Large by CT scan. Will repeat an echo today for follow up. Subjective Date/time seen: 03/21/24 09:14 Interval history: Follow-up visit in this 63-year-old man with diffuse coronary and peripheral arterial disease. Presented to the hospital on 03/04/2024 with some neck pain and altered mental status. STEMI was declared because of inferolateral ST segment elevation. High-grade stenosis in the trunk of the circumflex was identified and treated with PCI as detailed in the catheterization lab report. Previous LAD and right coronary stents were patent. Patient remains hospitalized was having difficulty with recurrence of atrial fibrillation last evening. This was a accompanied by hypotension requiring transfer back to the ICU. Likely this is a combination of his atrial fib other medications that were on board for hypertension. He is receiving intravenous amiodarone at this time and persisting atrial fib with heart rate 100-110. He is resting relatively comfortably upon awakening he offers no specific complaints. Date of service 03/09/2024: He was not complaining of chest pain earlier today is reported but not complaints of significant reproducible chest pain worse with deep breathing, movement, coughing or any palpation. Morphine helps. BP variable, Khanh-Syneph
[2024-03-21 09:19] LABS: Alveolar/Arterial O2 Gradient 123.3 mmHg; Base Excess ABG 5.1 mEq/l (+/-2.0); Carboxyhemoglobin 0.4 % THb (0-2.0); Fractional Inspired Oxygen 35 %; HCO3 ABG 30.8 mEq/l (22.0-26.0); Methemoglobin ABG 0.3 %THb (0-1.5); Oxygen Content ABG 13.5 %vol (16.0-22.0); Oxygen Saturation ABG 93.1 % (95.0-100.0); Oxyhemoglobin 92.5 % THb (90.0-100.0); PO2 FiO2 Ratio Arterial Blood 1.91 %; Reduced Hemoglobin 6.8 %THb (0-5.0); Total Hemoglobin 10.3 g/dL (12.0-18.0); pH ABG 7.399 (7.350-7.450)
[2024-03-21 09:20] LABS: Site Drawn LEFT RADIAL
[2024-03-21 09:21] LABS: Device VENTILATOR
[2024-03-21 09:22] LABS: Arterial Blood Gas PEEP 8 cmH2O; Arterial Blood Gas Pressure Support 5 cmH2O; Arterial Blood Gas Vent Mode SPONTANEOUS
[2024-03-21] MEDS: POTASSIUM BICARBONATE 25 MEQ TABEF FEED TUBE (09:28)
--- NOTE | 2024-03-21 09:50 | P.PNNP_ITS ---
Progress Note: A&P Assessment and Plan (1) SIM (acute kidney injury): Code(s): N17.9 - Acute kidney failure, unspecified Status: Acute Assessment and Plan: * relatively stable * suspect initial insult due to: * acute [place] * concurrent ETHAN-[facility] MANAGER ICU * prerenal factors(?) * cannot r/o an element of CKD progression * second insult likely due to * fluctuating hypotension/hemodynamic instability * fluctuating H/H * Afib with RVR * contrast (cardiac cath + CT scan) * UTI * evaluation to date noted: * urine eosinophil negative * urine electrolytes prerenal * mild proteinuria * CPK normal * renal ultrasound c/w CKD * follow trend of repeat labs and UOP (2) Chronic kidney disease, stage 3: Code(s): N18.3 - Chronic kidney disease, stage 3 (moderate) Status: Chronic Assessment and Plan: * baseline creatinine seems to run ~ 1.4 - 1.7mg/dl * this would cause him to fluctuate between CKD stage 3A and stage 3B * likely secondary to hypertension, diabetes, severe vascular disease (CAD + PAD + hyperlipidemia), and age (3) Hyperkalemia: Code(s): E87.5 - Hyperkalemia Status: Acute Assessment and Plan: * resolved * presumably due to #1 * off lokelma * follow repeat K+ levels (4) Acute respiratory failure: Qualifiers: Respiratory failure complication: unspecified whether with hypoxia or hypercapnia Qualified Code(s): J96.00 - Acute respiratory failure, unspecified whether with hypoxia or hypercapnia Code(s): J96.00 - Acute respiratory failure, unspecified whether with hypoxia or hypercapnia Status: Acute Assessment and Plan: * extubated but respiratory status tenuous * suspect multifactorial etiology: * large left pleural effusion/ whiteout of left hemithorax * hypoxia * AMS/encephalopathy * intubated on 03/15/24; extubated earlier today * on antibiotics * diuresis as tolerated (on IV lasix) * follow culture data * continue bronchodilator therapy (5) Pleural effusion, left: Code(s): J90 - Pleural effusion, not elsewhere classified Status: Acute Assessment and Plan: * as noted by recent CXR * contributing component to #4 * s/p left thoracentesis by IR on 03/15/24 * pleural fluid studies/analysis noted * on antibiotics (6) ST elevation (STEMI) myocardial infarction: Code(s): I21.3 - ST elevation (STEMI) myocardial infarction of unspecified site Status: Acute Assessment and Plan: * admission EKG showed inferior lateral ST-elevation [place] * s/p cardiac cath with PTCA/PCI with KENYA x 1 to mid RCA which was 90% blocked * no LV gram was performed due to renal dysfunction * Cardiology following * Echo results noted * remains on DAPT and statin (7) Atrial fibrillation: Code(s): I48.91 - Unspecified atrial fibrillation Status: Acute Assessment and Plan: * on amiodarone * s/p cardioversion on 03/11 * on anticoagulation * Cardiology following (8) Anemia: Code(s): D64.9 - Anemia, unspecified Status: Acute Assessment and Plan: * due in part to CKD and acute illness * follow trend of H/H * started Epogen while hospitalized given renal dysfunction (9) UTI (urinary tract infection): Code(s): N39.0 - Urinary tract infection, site not specified Status: Acute Assessment and Plan: * urine culture with Proteus * completed 7 day course of antibiotics (1
--- NOTE | 2024-03-21 09:50 | PM.PNNEP ---
Progress Note: A&P Assessment and Plan (1) SIM (acute kidney injury): Code(s): N17.9 - Acute kidney failure, unspecified Status: Acute Assessment and Plan: relatively stable suspect initial insult due to: acute [place] concurrent ETH[employer]-I [employer] prerenal factors(?) cannot r/o an element of CKD progression second insult likely due to fluctuating hypotension/hemodynamic instability fluctuating H/H Afib with RVR contrast (cardiac cath + CT scan) UTI evaluation to date noted: urine eosinophil negative urine electrolytes prerenal mild proteinuria CPK normal renal ultrasound c/w CKD follow trend of repeat labs and UOP (2) Chronic kidney disease, stage 3: Code(s): N18.3 - Chronic kidney disease, stage 3 (moderate) Status: Chronic Assessment and Plan: baseline creatinine seems to run ~ 1.4 - 1.7mg/dl this would cause him to fluctuate between CKD stage 3A and stage 3B likely secondary to hypertension, diabetes, severe vascular disease (CAD + PAD + hyperlipidemia), and age (3) Hyperkalemia: Code(s): E87.5 - Hyperkalemia Status: Acute Assessment and Plan: resolved presumably due to #1 off lokelma follow repeat K+ levels (4) Acute respiratory failure: Qualifiers: Respiratory failure complication: unspecified whether with hypoxia or hypercapnia Qualified Code(s): J96.00 - Acute respiratory failure, unspecified whether with hypoxia or hypercapnia Code(s): J96.00 - Acute respiratory failure, unspecified whether with hypoxia or hypercapnia Status: Acute Assessment and Plan: extubated but respiratory status tenuous suspect multifactorial etiology: large left pleural effusion/ whiteout of left hemithorax hypoxia AMS/encephalopathy intubated on 03/15/24; extubated earlier today on antibiotics diuresis as tolerated (on IV lasix) follow culture data continue bronchodilator therapy (5) Pleural effusion, left: Code(s): J90 - Pleural effusion, not elsewhere classified Status: Acute Assessment and Plan: as noted by recent CXR contributing component to #4 s/p left thoracentesis by IR on 03/15/24 pleural fluid studies/analysis noted on antibiotics (6) ST elevation (STEMI) myocardial infarction: Code(s): I21.3 - ST elevation (STEMI) myocardial infarction of unspecified site Status: Acute Assessment and Plan: admission EKG showed inferior lateral ST-elevation [place] s/p cardiac cath with PTCA/PCI with KENYA x 1 to mid RCA which was 90% blocked no LV gram was performed due to renal dysfunction Cardiology following Echo results noted remains on DAPT and statin (7) Atrial fibrillation: Code(s): I48.91 - Unspecified atrial fibrillation Status: Acute Assessment and Plan: on amiodarone s/p cardioversion on 03/11 on anticoagulation Cardiology following (8) Anemia: Code(s): D64.9 - Anemia, unspecified Status: Acute Assessment and Plan: due in part to CKD and acute illness follow trend of H/H started Epogen while hospitalized given renal dysfunction (9) UTI (urinary tract infection): Code(s): N39.0 - Urinary tract infection, site not specified Status: Acute Assessment and Plan: urine culture with Proteus completed 7 day course of antibiotics (10) Insulin dependent type 2 diabetes mellitus: Code(s): E11.9 - Type 2 diabetes mellitus without complications; Z79.4 - halfway (current) use of insulin Status: Acute Assessment and Plan: follow accu-cheks glycemic control per hospitalist/comedian Will continue to follow. Subjective Date/time seen: 03/21/24 09:50 Interval history: Follow-up for acute kidney injury/acute renal failure on chronic kidney disease. Just extubated earlier but he is requiring significant oxygen support at this time and there i
[2024-03-21] MEDS: ROCURONIUM BROMIDE 50 MG/5 ML VIAL IV PUSH (09:56)
[2024-03-21] MEDS: ETOMIDATE 20 MG/10 ML AMPUL IV PUSH (09:56)
--- NOTE | 2024-03-21 10:11 | WPDPROCEDUR ---
Procedures Intubation Intubation Date: 03/21/24 Intubation Time: 10:00 Consent: Patient was extubated but failed and had to be emergently reintubated. Patient is full code and unable to provide any consent at this time and no family is available Sedative: etomidate Mg given: 20 Paralytic: rocuronium Mg given: 50 Laryngoscope: fiber optic video scope Assist device used: fiber optic device ET tube size: 7.5 Tube secured depth (cm): 25 Tube secured location: lips Tube placement confirmation: visualized tube passing through cords, equal breath sounds bilaterally, no breath sounds over epigastrium and confirmation by capnometry Patient tolerated procedure: well Intubation complications: none Additional comments: Intubation patient was performed by student Marianne Vega under my supervision and I was present and assisting her throughout the procedure.
--- NOTE | 2024-03-21 10:12 | P.PNCROSS_ITS ---
Event Note Event Note Event Note: 03/20 PSV SBT done for more than 1 hour. RSBI, ABGI and Vitals acceptable. Patie nt did appear using abdominal muscles during the trial but patient is morbidly obese. Pt was awake and following commands. Patient was extubated but immediately after extubation patient desaturated. He had difficulty clearing his secretions and appeared stridorous. He developed respiratory distress. He was awake but unable to follow any commands or respond to questions. Patient was emergently reintubated. Chest x-ray pending. Will resume tube feeds and propofol for sedation..
--- NOTE | 2024-03-21 11:18 | PCFNICU ---
ICU Rounding Note: Pt current nutrition is Nepro at 45 ml/hr . Last recorded weight is 117.2 kg Bowel Motility: No BM reported. Miralax has been started. Labs Reviewed: Glu 232, Cr 1.8,BUN 83, Na 148, Alb 3.2,Hct 28.7,Hgb 8.2 Meds Noted:Miralax, Reglan, Vancomycin, Lantus, Senokot, Protonix, Propofol rate had been at 10.53 ml/hr providing an additional 278 kcals. Skin: Deep Tissue-coccyx Additional Notes: Patient was extubated and reintubated today. Tube feedings restarted on Nepro at 45ml/hr . Flush 200 ml q 4 hours. Agree with diet orders. Following daily in ICU rounds. Monitoring tube feeding tolerance, weights, labs, output, plan of care reassess Monday and Monday per policy.
[2024-03-21 11:29] LABS: Glucose Point of Care 222 mg/dl (65-105)
[2024-03-21] MEDS: methylPREDNISolone SOD SUCC 40 MG VIAL IV PUSH ×2 (13:00→17:03)
--- NOTE | 2024-03-21 13:30 | PC.NURSE ---
0900. Patient intubated on SBT. Following commands. 919. Orders per Dr Patiño, [employer] Machine to extubate patient. 929. Patient extubated, 8L HF/nl applied to patient , patient with increasing oxygen requirements. Patient no longer following commands. Dr Patiño made aware. 1000. Patient reintubated.
[2024-03-21] MEDS: PROPOFOL IV EMULSION 100 ML 14.04 MG IV CONT ×2 (18:00→21:52)
[2024-03-21 18:17] LABS: Glucose Point of Care 276 mg/dl (65-105)
[2024-03-21 18:21] LABS: Glucose Point of Care 316 mg/dl (65-105)
[2024-03-21 20:14] LABS: Glucose Point of Care 336 mg/dl (65-105)
[2024-03-21] MEDS: SENNA/DOCUSATE SODIUM TABLET 1 TAB PO (20:28)
[2024-03-21] MEDS: FUROSEMIDE INJ 40 MG/4 ML VIAL IV PUSH (20:28)
[2024-03-21] MEDS: INSULIN GLARGINE (*BKC) 100 UNITS/ML 30 UNITS SUB-Q (20:30)
[2024-03-22] VITALS (59 sets, daily range): BP systolic 103–190; BP diastolic 39–80; PULSE 62–93; RESP 15–26; TEMP 37.3–37.7; O2SAT 94–98
[2024-03-22] MEDS: METOCLOPRAMIDE HCL 10 MG TABLET FEED TUBE ×5 (00:12→23:56)
[2024-03-22] MEDS: methylPREDNISolone SOD SUCC 40 MG VIAL IV PUSH (00:12)
[2024-03-22] MEDS: INSULIN ASPART (*BKC) 100 UNITS/ML SUB-Q ×7 (00:13→23:56)
[2024-03-22] MEDS: AZTREONAM 2 GM in SODIUM CHLORIDE 0.9% IV 100 ML 200 ML IVPB ×3 (00:14→16:07)
[2024-03-22] MEDS: hydrALAZINE HCL 20 MG/ML VIAL 10 MG IV PUSH ×4 (00:35→17:03)
[2024-03-22 01:33] LABS: Glucose Point of Care 331 mg/dl (65-105)
[2024-03-22] MEDS: PROPOFOL IV EMULSION 100 ML 24.57 MG IV CONT (03:25)
[2024-03-22] MEDS: MORPHINE SULFATE (*CRX) 2 MG/ML INJ IV PUSH ×4 (03:26→10:04)
[2024-03-22] MEDS: BISACODYL 10 MG SUPPOSITORY RECTAL (03:27)
[2024-03-22] MEDS: METOPROLOL TARTRATE 25 MG TABLET PO (03:27)
[2024-03-22 05:20] LABS: Hematocrit 29.4 % (42.0-52.0); Hemoglobin 8.3 g/dL (14.0-18.0); Mean Corpuscular HGB Conc 28.2 g/dl (32-36); Mean Corpuscular Hemoglobin 27.5 pg (26-34); Mean Corpuscular Volume 97.4 fl (80-100); Mean Platelet Volume 12.2 fl (7.4-10.4); Platelet Count Result 234 k/mm3 (150-375); Red Blood Count 3.02 M/mm3 (4.6-6.20); Red Cell Distribution Width 17.2 % (11.5-14.5); White Blood Count 16.8 K/mm3 (4.5-10.0)
[2024-03-22 05:28] LABS: Base Excess ABG 5.5 mEq/l (+/-2.0); Carboxyhemoglobin 0.3 % THb (0-2.0); Fractional Inspired Oxygen 40 %; HCO3 ABG 30.2 mEq/l (22.0-26.0); Methemoglobin ABG 0.3 %THb (0-1.5); Oxygen Content ABG 14.3 %vol (16.0-22.0); Oxyhemoglobin 95.4 % THb (90.0-100.0); PCO2 ABG 44.9 mmHg (35.0-45.0); PO2 ABG 78.6 mmHg (80.0-100.0); PO2 FiO2 Ratio Arterial Blood 1.96 %; Total Hemoglobin 10.6 g/dL (12.0-18.0); pH ABG 7.446 (7.350-7.450)
[2024-03-22 05:30] LABS: Glucose Point of Care 371 mg/dl (65-105)
[2024-03-22 05:33] LABS: Alanine Aminotransferase 22 U/L (6-50); Albumin Level 3.4 g/dL (3.5-5.1); Alkaline Phosphatase 111 U/L (38-126); Anion Gap 5 mmol/L (4-12); Aspartate Amino Transferase 27 U/L (17-59); Bilirubin,Total 0.4 mg/dL (0.2-1.3); Blood Urea Nitrogen 86 mg/dL (9-20); Calcium 8.8 mg/dL (8.4-10.2); Carbon Dioxide 31 mmol/L (22-30); Chloride 110 mmol/L (98-107); Estimated CRCL calculation 55 ml/min; Estimated Glomerular Filt Rate 44; Glucose 412 mg/dL (65-110); Magnesium 2.3 mg/dL (1.6-2.3); Potassium 4.1 mmol/L (3.4-5.0); Sodium 146 mmol/L (137-145)
[2024-03-22 05:36] LABS: Triglycerides 123 mg/dL (<150)
[2024-03-22 05:43] LABS: Arterial Blood Gas PEEP 10 cmH2O; Arterial Blood Gas Tidal Volume 450 ml; Arterial Blood Gas Vent Mode CMV; Arterial Blood Gas Ventilator rate 20 /MIN; Device VENTILATOR; Modified Allen's Test Pass; Site Drawn LEFT RADIAL
[2024-03-22] MEDS: CENTRAL LINE FLUSH 10 ML IV PUSH ×3 (06:43→22:12)
[2024-03-22] MEDS: PROPOFOL IV EMULSION 100 ML 17.55 MG IV CONT ×2 (06:49→12:09)
--- NOTE | 2024-03-22 07:30 | WPDINTPN ---
Progress Note: A&P Assessment and Plan (1) Acute respiratory failure: Qualifiers: Respiratory failure complication: unspecified whether with hypoxia or hypercapnia Qualified Code(s): J96.00 - Acute respiratory failure, unspecified whether with hypoxia or hypercapnia <Marianne LopezDaren Silvia, Student - Last Filed: 03/22/24 09:58> Code(s): J96.00 - Acute respiratory failure, unspecified whether with hypoxia or hypercapnia <Marianne LopezDaren Silvia, Student - Last Filed: 03/22/24 09:58> Status: Acute <Marianne Vega, Student - Last Filed: 03/22/24 09:58> Assessment and Plan: ? Acute respiratory failure likely related to large left pleural effusion, hypoxia, encephalopathy, mottling, requiring intubation on 03/15/24. 03/18: Pleural effusion improving clinically and radiographically Microbiology studies: -03/16 Blood cx: no growth to date -03/16 Sputum cx: MRSA growth -03/16 Urine cx no growth -03/15 Left Pleural fluid: no organisms seen, pending cultures and cytology -03/18 Right pleural fluid: no organisms seen. Pathology report without malignancy, pending cytology -03/21: failed extubation and emergently reintubated after desaturating. Follow up chest CT without new cardiopulmonary disease changes, however possible cholecystitis. Received 40 mg IV methylprednisone after reintubation. -Order HIDA scan for further assessment -Continue Propofol infusion at 25 mcg/kg/min -Sedation goal RASS of 0 to -2, with daily sedation vacation -Continue CMV mode of ventilation, PEEP 10, FiO2 40% -ABG reviewed. pH 7.45, CO2 45, HCO3 30. No changes on vent settings -continue bronchodilators -Decrease diuresis to 40 mg IV q daily -continue vancomycin, aztreonam (03/16) for seven days -Completed 5 day course of Flagyl 03/16/2024: CT chest/Abdomen/Pelvis non contrast IMPRESSION: 1. Lines and tubes in expected position. 2. Persistent consolidation in the left mid to lower lung zone correspond to a small left pleural effusion and associated atelectasis on prior CT. Superimposed pneumonia not excludable. 3. Increasing pulmonary vascular congestion with indistinct interstitial and hazy airspace opacity right mid to lower lung zone likely combination of mild pulmonary edema or pneumonia superimposed over a small to moderate-sized right pleural effusion which is much better appreciated on prior CT. 4. Large cardiac silhouette on prior CT correspond to a large pericardial effusion. <Marianne Vega, Student - Last Filed: 03/22/24 09:58> ? Acute respiratory failure likely related to large left pleural effusion, hypoxia, encephalopathy, mottling, requiring intubation on 03/15/24. 03/18: Pleural effusion improving clinically and radiographically Microbiology studies: -03/16 Blood cx: no growth to date -03/16 Sputum cx: MRSA growth -03/16 Urine cx no growth -03/15 Left Pleural fluid: no organisms seen, pending cultures and cytology -03/18 Right pleural fluid: no organisms seen. Pathology report without malignancy, pending cytology -03/21: failed extubation and emergently reintubated after desaturating. Follow up chest CT without new cardiopulmonary disease changes, however possible cholecystitis. Received IV methylprednisone after reintubation for any potential airway edema. -Order HIDA scan for further assessment of gallbladder -Continue Propofol infusion at 25 mcg/kg/min -Sedation goal RASS of 0 to -2, with daily sedation vacation -Continue CMV mode of ventilation, PEEP 10, FiO2 40% -ABG reviewed. pH 7.45, CO2 45, HCO3 30. No changes on vent settings -continue bronchodilators -Decrease diuresis to 40 mg IV q daily -continue vancomycin, aztreonam (03/16) for seven days -Completed 5 day course of Flagyl 03/16/2024: CT chest/Abdomen/Pelvis non contrast
[2024-03-22 08:30] LABS: Glucose Point of Care 380 mg/dl (65-105)
[2024-03-22] MEDS: ASPIRIN 81 MG CHEWABLE TABLET PO (08:32)
[2024-03-22] MEDS: ROSUVASTATIN 10 MG TABLET 20 MG PO (08:32)
[2024-03-22] MEDS: AMIODARONE HCL 200 MG TABLET 400 MG PO (08:32)
[2024-03-22] MEDS: CLOPIDOGREL BISULFATE 75 MG TABLET PO (08:32)
[2024-03-22] MEDS: polyethylene glycoL 3350 17 GM POWD.PACK PO (08:32)
[2024-03-22] MEDS: ENOXAPARIN 40 MG/0.4 ML SYRINGE SUB-Q (08:36)
[2024-03-22] MEDS: FUROSEMIDE INJ 40 MG/4 ML VIAL IV PUSH (08:42)
[2024-03-22] MEDS: EPOETIN ALFA-EPBX 10,000 UNITS/ML VIAL 10000 UNITS SUB-Q (08:42)
[2024-03-22] MEDS: PANTOPRAZOLE SODIUM IV 40 MG VIAL IV PUSH ×2 (08:43→20:03)
[2024-03-22] MEDS: INSULIN GLARGINE (*BKC) 100 UNITS/ML 40 UNITS SUB-Q (08:43)
[2024-03-22] MEDS: MINERAL OIL/WHITE PETROLATUM OINTMENT 1 APPLIC EACH EYE ×2 (08:44→20:03)
[2024-03-22 09:10] LABS: Vancomycin Trough 15.5 ug/mL (10.0-20.0)
--- NOTE | 2024-03-22 09:43 | PM.PNCARD ---
Progress Note: A&P Assessment and Plan (1) ST elevation (STEMI) myocardial infarction: Code(s): I21.3 - ST elevation (STEMI) myocardial infarction of unspecified site Status: Acute Plan 63-year-old man with multivessel coronary disease, extensive peripheral vascular disease who remains ventilator dependent following emergency PCI to his circumflex on the day of admission. His infarct was complicated by atrial fibrillation which has been rendered quiescent on amiodarone following DC cardioversion subsequent to this. He does have a circumferential pericardial effusion which is small to moderate in size in contrast to what is being reported by Radiology. His perfusion is not resulting in hemodynamic compromise as he is not tachycardic and is hypertensive. Discussed with assurance officer today. This is not the reason that he is on weanable from the ventilator in my opinion. It is becoming more likely that this gentleman will need to be discharged unfortunately to a chronic ventilator facility. Horacio Cleaning MD [facility] Subjective Date/time seen: Date of service: 03/22/24 09:43 Interval history: Follow-up visit in this 63-year-old man with diffuse coronary and peripheral arterial disease. Presented to the hospital on 03/04/2024 with some neck pain and altered mental status. STEMI was declared because of inferolateral ST segment elevation. High-grade stenosis in the trunk of the circumflex was identified and treated with PCI as detailed in the catheterization lab report. Previous LAD and right coronary stents were patent. Patient remains hospitalized was having difficulty with recurrence of atrial fibrillation last evening. This was a accompanied by hypotension requiring transfer back to the ICU. Likely this is a combination of his atrial fib other medications that were on board for hypertension. He is receiving intravenous amiodarone at this time and persisting atrial fib with heart rate 100-110. He is resting relatively comfortably upon awakening he offers no specific complaints. Date of service 03/09/2024: He was not complaining of chest pain earlier today is reported but not complaints of significant reproducible chest pain worse with deep breathing, movement, coughing or any palpation. Morphine helps. BP variable, Khanh-Synephrine held secondary to hypertension. Date of service 03/10/2024: Patient is sleepy but arousable. Feels better today. No chest pain. Breathing stable. He is off Khanh-Synephrine. BP much more stable. Remains tachycardic in AFib with RVR heart rates 120s on average. Date of service 03/11/2024: The patient is hemodynamically stable is oxygenating adequately on nasal cannula O2 but is complaining that he is still short of breath with modest activity. Likely discussion with the patient today about the fact that he is persisting in atrial fibrillation now for the last 4 days despite intravenous amiodarone. Recommend attempting DC cardioversion. Because of his medical complexity and obesity will need to coordinate this with anesthesia for airway protection. Will try to get this scheduled for today Date of service 03/12/2024: No cardiovascular complaints today. Remaining in sinus rhythm. Intravenous amiodarone stopped today. Remains on p.o. amiodarone. Hemoglobin drops again to breathe over 88, intravenous heparin. Maintains on dual anti-platelet therapy. Patient complains of dysuria would like his Ayoub catheter removed if possible Date of service 03/13/2024: The patient does look more comfortable today and for the last couple of days. Moved out of ICU. Oxygenating well. No new cardiovascular complaints/concerns. Maintaining sinus rhythm on telemetry. Date of service 03/14/2024: He is complaining of some shortness of breath. He is also confused, has pulled out his IV and removed telemetry monitoring multiple times. Requiring restraints at this time. Date of service 03/15/2024: He developed
[2024-03-22] MEDS: VANCOMYCIN 1,500 MG/NS 500 ML 1,500 MG/500 ML BAG 250 MG IVPB (09:58)
--- NOTE | 2024-03-22 10:02 | P.PNNP_ITS ---
Progress Note: A&P Assessment and Plan (1) SIM (acute kidney injury): Code(s): N17.9 - Acute kidney failure, unspecified Status: Acute Assessment and Plan: * relatively stable if not close to baseline * suspect initial insult due to: * acute [place] * concurrent ETHAN-I [employer] S[employer]ER * prerenal factors(?) * cannot r/o an element of CKD progression * second insult likely due to * fluctuating hypotension/hemodynamic instability * fluctuating H/H * Afib with RVR * contrast (cardiac cath + CT scan) * UTI * evaluation to date noted: * urine eosinophil negative * urine electrolytes prerenal * mild proteinuria * CPK normal * renal ultrasound c/w CKD * follow trend of repeat labs and UOP (2) Chronic kidney disease, stage 3: Code(s): N18.3 - Chronic kidney disease, stage 3 (moderate) Status: Chronic Assessment and Plan: * baseline creatinine seems to run ~ 1.4 - 1.7mg/dl * this would cause him to fluctuate between CKD stage 3A and stage 3B * likely secondary to hypertension, diabetes, severe vascular disease (CAD + PAD + hyperlipidemia), and age (3) Hyperkalemia: Code(s): E87.5 - Hyperkalemia Status: Acute Assessment and Plan: * resolved * presumably due to #1 * off lokelma * follow repeat K+ levels (4) Acute respiratory failure: Qualifiers: Respiratory failure complication: unspecified whether with hypoxia or hypercapnia Qualified Code(s): J96.00 - Acute respiratory failure, unspecified whether with hypoxia or hypercapnia Code(s): J96.00 - Acute respiratory failure, unspecified whether with hypoxia or hypercapnia Status: Acute Assessment and Plan: * suspect multifactorial etiology: * large left pleural effusion/ whiteout of left hemithorax * hypoxia * AMS/encephalopathy * intubated on 03/15/24; extubated earlier on 03/21 but then quickly re-intubated * on antibiotics * diuresis as tolerated (on IV lasix) * follow culture data * continue bronchodilator therapy (5) Pleural effusion, left: Code(s): J90 - Pleural effusion, not elsewhere classified Status: Acute Assessment and Plan: * as noted by recent CXR * contributing component to #4 * s/p left thoracentesis by IR on 03/15/24 * pleural fluid studies/analysis noted * on antibiotics (6) ST elevation (STEMI) myocardial infarction: Code(s): I21.3 - ST elevation (STEMI) myocardial infarction of unspecified site Status: Acute Assessment and Plan: * admission EKG showed inferior lateral ST-elevation [place] * s/p cardiac cath with PTCA/PCI with KENYA x 1 to mid RCA which was 90% blocked * no LV gram was performed due to renal dysfunction * Cardiology following * Echo results noted * remains on DAPT and statin (7) Hypernatremia: Code(s): E87.0 - Hyperosmolality and hypernatremia Status: Acute Assessment and Plan: * due to free water deficit and free water loss from diuretics * adjust free water tube flushes to compensate * follow trend of sodium (8) Atrial fibrillation: Code(s): I48.91 - Unspecified atrial fibrillation Status: Acute Assessment and Plan: * on amiodarone * s/p cardioversion on 03/11 * on anticoagulation * Cardiology following (9) Anemia: Code(s): D64.9 - Anemia, unspecified Status: Acute Assessment and Plan: * due in part to CKD and acute illness * follow trend of H/H * started Epoge
--- NOTE | 2024-03-22 10:02 | PM.PNNEP ---
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 prerenal factors(?) cannot r/o an element of CKD progression second insult likely due to fluctuating hypotension/hemodynamic instability fluctuating H/H Afib with RVR contrast (cardiac cath + CT scan) UTI evaluation to date noted: urine eosinophil negative urine electrolytes prerenal mild proteinuria CPK normal renal ultrasound c/w CKD follow trend of repeat labs and UOP (2) Chronic kidney disease, stage 3: Code(s): N18.3 - Chronic kidney disease, stage 3 (moderate) Status: Chronic Assessment and Plan: baseline creatinine seems to run ~ 1.4 - 1.7mg/dl this would cause him to fluctuate between CKD stage 3A and stage 3B likely secondary to hypertension, diabetes, severe vascular disease (CAD + PAD + hyperlipidemia), and age (3) Hyperkalemia: Code(s): E87.5 - Hyperkalemia Status: Acute Assessment and Plan: resolved presumably due to #1 off lokelma follow repeat K+ levels (4) Acute respiratory failure: Qualifiers: Respiratory failure complication: unspecified whether with hypoxia or hypercapnia Qualified Code(s): J96.00 - Acute respiratory failure, unspecified whether with hypoxia or hypercapnia Code(s): J96.00 - Acute respiratory failure, unspecified whether with hypoxia or hypercapnia Status: Acute Assessment and Plan: suspect multifactorial etiology: large left pleural effusion/ whiteout of left hemithorax hypoxia AMS/encephalopathy intubated on 03/15/24; extubated earlier on 03/21 but then quickly re-intubated on antibiotics diuresis as tolerated (on IV lasix) follow culture data continue bronchodilator therapy (5) Pleural effusion, left: Code(s): J90 - Pleural effusion, not elsewhere classified Status: Acute Assessment and Plan: as noted by recent CXR contributing component to #4 s/p left thoracentesis by IR on 03/15/24 pleural fluid studies/analysis noted on antibiotics (6) ST elevation (STEMI) myocardial infarction: Code(s): I21.3 - ST elevation (STEMI) myocardial infarction of unspecified site Status: Acute Assessment and Plan: admission EKG showed inferior lateral ST-elevation [place] s/p cardiac cath with PTCA/PCI with KENYA x 1 to mid RCA which was 90% blocked no LV gram was performed due to renal dysfunction Cardiology following Echo results noted remains on DAPT and statin (7) Hypernatremia: Code(s): E87.0 - Hyperosmolality and hypernatremia Status: Acute Assessment and Plan: due to free water deficit and free water loss from diuretics adjust free water tube flushes to compensate follow trend of sodium (8) Atrial fibrillation: Code(s): I48.91 - Unspecified atrial fibrillation Status: Acute Assessment and Plan: on amiodarone s/p cardioversion on 03/11 on anticoagulation Cardiology following (9) Anemia: Code(s): D64.9 - Anemia, unspecified Status: Acute Assessment and Plan: due in part to CKD and acute illness follow trend of H/H started Epogen while hospitalized given renal dysfunction (10) Insulin dependent type 2 diabetes mellitus: Code(s): E11.9 - Type 2 diabetes mellitus without complications; Z79.4 - skilled nursing (current) use of insulin Status: Acute Assessment and Plan: follow accu-cheks glycemic control per hospitalist/bone tender Will continue to follow. Subjective Date/time seen: 03/22/24 10:02 Interval history: Follow-up for acute kidney injury/acute renal failure on chronic kidney disease. Events noted yesterday -- failed trial o
--- NOTE | 2024-03-22 10:53 | PCNFU ---
Nutrition Follow-Up Complete: Increased protein energy needs related to mechanical ventilation as evidenced by NPO, need for full tube feeding Goal: Meet estimated protein energy needs Patient is progressing towards goal. We will Pt current nutrition is Nepro at 45 ml/hr with Prosource BID. Last recorded weight is 117.7 kg Bowel Motility: +BM reported 03/22 Labs Reviewed:Glu 412, BUN 86, Cr 1.6,Alb 3.4,Na 146, Hct 29.6,Hgb 8.3 Meds Noted: Crestor, Lantus, Senokot, Miralax, Lasix, Reglan, Protonix, Propofol 25 wqtn=487 kcal daily. Skin:Deep Tissue-coccyx. Additional Notes: Patient remains on mechanical vent. Tube feedings of Nepro at 45 ml/hr and tolerating per nursing. Total Nutrition with protein modulars: 2405 kcals/122 gm protein/727 ml water. Flush 200 ml q 4 hours. Will continue to monitor propofol infusion for any tube feeding rate changes. If Propofol remains at 25 mcgs recommend decreasing tube feeding rate to 35 ml/hr to better meet caloric needs. Monitoring tube feeding tolerance, weights, labs, output, plan of care Follow in rounds, reassess Monday and Monday per policy
[2024-03-22 11:48] LABS: Glucose Point of Care 337 mg/dl (65-105)
[2024-03-22 15:41] LABS: Glucose Point of Care 232 mg/dl (65-105)
[2024-03-22] MEDS: PROPOFOL IV EMULSION 100 ML 14.04 MG IV CONT (19:49)
[2024-03-22] MEDS: SENNA/DOCUSATE SODIUM TABLET 1 TAB PO (20:03)
[2024-03-22 20:18] LABS: Glucose Point of Care 245 mg/dl (65-105)
[2024-03-23] VITALS (34 sets, daily range): BP systolic 114–190; BP diastolic 39–84; PULSE 67–92; RESP 13–23; TEMP 36.9–37.6; O2SAT 9–99
[2024-03-23 00:06] LABS: Glucose Point of Care 309 mg/dl (65-105)
[2024-03-23] MEDS: PROPOFOL IV EMULSION 100 ML 17.55 MG IV CONT ×4 (00:31→20:35)
[2024-03-23] MEDS: METOCLOPRAMIDE HCL 10 MG TABLET FEED TUBE ×3 (05:08→18:14)
[2024-03-23] MEDS: INSULIN ASPART (*BKC) 100 UNITS/ML SUB-Q ×4 (05:08→15:41)
[2024-03-23] MEDS: CENTRAL LINE FLUSH 10 ML IV PUSH ×3 (05:09→21:01)
[2024-03-23 05:21] LABS: Hemoglobin 7.9 g/dL (14.0-18.0); Mean Corpuscular HGB Conc 29.3 g/dl (32-36); Mean Corpuscular Volume 95.7 fl (80-100); Mean Platelet Volume 11.4 fl (7.4-10.4); Platelet Count Result 239 k/mm3 (150-375); Red Blood Count 2.82 M/mm3 (4.6-6.20); Red Cell Distribution Width 17.4 % (11.5-14.5); White Blood Count 14.4 K/mm3 (4.5-10.0)
[2024-03-23 05:22] LABS: Glucose Point of Care 323 mg/dl (65-105)
[2024-03-23 05:29] LABS: Alveolar/Arterial O2 Gradient 93.3 mmHg; Carboxyhemoglobin 0.6 % THb (0-2.0); Fractional Inspired Oxygen 35 %; HCO3 ABG 29.5 mEq/l (22.0-26.0); Oxygen Content ABG 12.6 %vol (16.0-22.0); Oxyhemoglobin 97.7 % THb (90.0-100.0); PCO2 ABG 43.3 mmHg (35.0-45.0); PO2 ABG 105.9 mmHg (80.0-100.0); PO2 FiO2 Ratio Arterial Blood 3.03 %; Reduced Hemoglobin 1.7 %THb (0-5.0); pH ABG 7.451 (7.350-7.450)
[2024-03-23 05:30] LABS: Device VENTILATOR; Modified Allen's Test Pass; Site Drawn LEFT RADIAL
[2024-03-23 05:31] LABS: Arterial Blood Gas PEEP 10 cmH2O; Arterial Blood Gas Tidal Volume 450 ml; Arterial Blood Gas Vent Mode CMV; Arterial Blood Gas Ventilator rate 20 /MIN
[2024-03-23 05:34] LABS: Alanine Aminotransferase 27 U/L (6-50); Albumin Level 3.1 g/dL (3.5-5.1); Alkaline Phosphatase 109 U/L (38-126); Anion Gap 2 mmol/L (4-12); Aspartate Amino Transferase 48 U/L (17-59); Bilirubin,Total 0.4 mg/dL (0.2-1.3); Blood Urea Nitrogen 95 mg/dL (9-20); Calcium 8.5 mg/dL (8.4-10.2); Carbon Dioxide 32 mmol/L (22-30); Chloride 112 mmol/L (98-107); Estimated CRCL calculation 55 ml/min; Estimated Glomerular Filt Rate 44; Glucose 329 mg/dL (65-110); Magnesium 2.3 mg/dL (1.6-2.3); Sodium 146 mmol/L (137-145)
[2024-03-23] MEDS: METOPROLOL TARTRATE 25 MG TABLET PO ×2 (08:32→21:01)
[2024-03-23] MEDS: AMIODARONE HCL 200 MG TABLET 400 MG PO (08:32)
[2024-03-23] MEDS: ASPIRIN 81 MG CHEWABLE TABLET PO (08:32)
[2024-03-23] MEDS: ENOXAPARIN 40 MG/0.4 ML SYRINGE SUB-Q (08:33)
[2024-03-23] MEDS: FUROSEMIDE INJ 40 MG/4 ML VIAL IV PUSH (08:33)
[2024-03-23] MEDS: CLOPIDOGREL BISULFATE 75 MG TABLET PO (08:33)
[2024-03-23] MEDS: ROSUVASTATIN 10 MG TABLET 20 MG PO (08:33)
[2024-03-23] MEDS: MINERAL OIL/WHITE PETROLATUM OINTMENT 1 APPLIC EACH EYE ×2 (08:34→21:01)
[2024-03-23] MEDS: polyethylene glycoL 3350 17 GM POWD.PACK PO (08:35)
[2024-03-23] MEDS: INSULIN GLARGINE (*BKC) 100 UNITS/ML 60 UNITS SUB-Q (08:35)
--- NOTE | 2024-03-23 08:51 | PM.PNCARD ---
Progress Note: A&P Assessment and Plan (1) ST elevation (STEMI) myocardial infarction: Code(s): I21.3 - ST elevation (STEMI) myocardial infarction of unspecified site Status: Acute Plan 63-year-old man with multivessel coronary disease presented initially with ST elevation IN and high-grade circumflex lesion was addressed successfully with emergency PCI/stenting. Previously deployed stents in his proximal LAD and right coronary arteries were found to be patent. After this procedure he was in atrial fibrillation and required cardioversion to restore sinus rhythm he also has been experiencing ongoing respiratory difficulty with requiring ongoing mechanical ventilator support. He was extubated for couple of days earlier in the hospitalization. Subsequently had to go back and in the ICU on the ventilator. Chest x-ray today does not look significantly congested. Likely will have another weaning attempt relatively soon. Continue dual anti-platelet therapy and amiodarone to maintain sinus rhythm Horacio Cleaning MD [facility] Subjective Date/time seen: Date of service: 03/23/24 08:51 Interval history: Follow-up visit in this 63-year-old man with diffuse coronary and peripheral arterial disease. Presented to the hospital on 03/04/2024 with some neck pain and altered mental status. STEMI was declared because of inferolateral ST segment elevation. High-grade stenosis in the trunk of the circumflex was identified and treated with PCI as detailed in the catheterization lab report. Previous LAD and right coronary stents were patent. Patient remains hospitalized was having difficulty with recurrence of atrial fibrillation last evening. This was a accompanied by hypotension requiring transfer back to the ICU. Likely this is a combination of his atrial fib other medications that were on board for hypertension. He is receiving intravenous amiodarone at this time and persisting atrial fib with heart rate 100-110. He is resting relatively comfortably upon awakening he offers no specific complaints. Date of service 03/09/2024: He was not complaining of chest pain earlier today is reported but not complaints of significant reproducible chest pain worse with deep breathing, movement, coughing or any palpation. Morphine helps. BP variable, Khanh-Synephrine held secondary to hypertension. Date of service 03/10/2024: Patient is sleepy but arousable. Feels better today. No chest pain. Breathing stable. He is off Khanh-Synephrine. BP much more stable. Remains tachycardic in AFib with RVR heart rates 120s on average. Date of service 03/11/2024: The patient is hemodynamically stable is oxygenating adequately on nasal cannula O2 but is complaining that he is still short of breath with modest activity. Likely discussion with the patient today about the fact that he is persisting in atrial fibrillation now for the last 4 days despite intravenous amiodarone. Recommend attempting DC cardioversion. Because of his medical complexity and obesity will need to coordinate this with anesthesia for airway protection. Will try to get this scheduled for today Date of service 03/12/2024: No cardiovascular complaints today. Remaining in sinus rhythm. Intravenous amiodarone stopped today. Remains on p.o. amiodarone. Hemoglobin drops again to breathe over 88, intravenous heparin. Maintains on dual anti-platelet therapy. Patient complains of dysuria would like his Ayoub catheter removed if possible Date of service 03/13/2024: The patient does look more comfortable today and for the last couple of days. Moved out of ICU. Oxygenating well. No new cardiovascular complaints/concerns. Maintaining sinus rhythm on telemetry. Date of service 03/14/2024: He is complaining of some shortness of breath. He is also confused, has pulled out his IV and removed telemetry monitoring multiple times. Requiring restraints at this time. Date of service 03/15/2024: He devel
--- NOTE | 2024-03-23 09:22 | WPDINTPN ---
Progress Note: A&P Assessment and Plan (1) Acute respiratory failure: Qualifiers: Respiratory failure complication: unspecified whether with hypoxia or hypercapnia Qualified Code(s): J96.00 - Acute respiratory failure, unspecified whether with hypoxia or hypercapnia Code(s): J96.00 - Acute respiratory failure, unspecified whether with hypoxia or hypercapnia Status: Acute Assessment and Plan: ? Acute respiratory failure likely related to large left pleural effusion, hypoxia, encephalopathy, mottling, requiring intubation on 03/15/24. 03/18: Pleural effusion improving clinically and radiographically Microbiology studies: -03/16 Blood cx: no growth to date -03/16 Sputum cx: MRSA growth -03/16 Urine cx no growth -03/15 Left Pleural fluid: no organisms seen, pending cultures and cytology -03/18 Right pleural fluid: no organisms seen. Pathology report without malignancy, pending cytology -03/21: failed extubation and emergently reintubated after desaturating. Follow up chest CT without new cardiopulmonary disease changes, however possible cholecystitis. Received IV methylprednisone after reintubation for any potential airway edema. -Continue Propofol infusion at 25 mcg/kg/min -Sedation goal RASS of 0 to -2, with daily sedation vacation -Continue CMV mode of ventilation, PEEP 10, FiO2 40% -ABG reviewed. Vent settings reviewed -continue bronchodilators -Decrease diuresis to 40 mg IV q daily -continue vancomycin, aztreonam (03/16) for seven days -Completed 5 day course of Flagyl -continue diuresis. Will attempt a weaning trial today 03/16/2024: CT chest/Abdomen/Pelvis non contrast IMPRESSION: 1. Lines and tubes in expected position. 2. Persistent consolidation in the left mid to lower lung zone correspond to a small left pleural effusion and associated atelectasis on prior CT. Superimposed pneumonia not excludable. 3. Increasing pulmonary vascular congestion with indistinct interstitial and hazy airspace opacity right mid to lower lung zone likely combination of mild pulmonary edema or pneumonia superimposed over a small to moderate-sized right pleural effusion which is much better appreciated on prior CT. 4. Large cardiac silhouette on prior CT correspond to a large pericardial effusion. (2) Pleural effusion, left: Code(s): J90 - Pleural effusion, not elsewhere classified Status: Acute Assessment and Plan: Large left pleural effusion -03/15:? Left thoracentesis with drainage of 500 mL of yellowish fluid 03/18 repeat thoracentesis on the left 550 mL fluid was removed -pleural fluid labs are pending -pleural fluid Gram stain did not show any organisms, pleural fluid culture no growth so far -antibiotics as above -03/22: Chest CT from 03/21 reviewed, persistent bilateral pleural effusions, although mild in size. (3) Pericardial effusion: Code(s): I31.39 - Other pericardial effusion (noninflammatory) Status: Acute Assessment and Plan: 03/16: CT chest showed large pericardial effusion, which was also seen on the CT CT scan of the chest on 03/07/2024 -cardiology is aware, no tamponade physiology at this time as blood pressures are stable -03/22: Repeat ECHO results reviewed ,small-moderate size pericardial effusion, not enough to cause hemodynamic instability. Will continue to monitor Date of Service: 03/21/24 Procedure(s): CA echo limited Summary ? 1. Normal left ventricular size and systolic contractility. ? 2. Normal right ventricular size, no sign of right ventricular diastolic collapse. ? 3. Small to moderate-sized circumferential pericardial.? 1.5 cm anterior and 2.0 cm posterior to the heart+. ? 4. Mildly sclerotic aortic valve Cardiology following (4) Acute renal failure superimposed on stage 3 chronic kidney disease: Code(s): N17.9 - Acute kidney failure, unspecified; N18.30 - Chronic kidney disease, stage 3 unspecified Status: Acute Assessment and Plan: Acute
[2024-03-23 09:43] LABS: Glucose Point of Care 303 mg/dl (65-105)
[2024-03-23] MEDS: PANTOPRAZOLE SODIUM IV 40 MG VIAL IV PUSH ×2 (09:54→21:01)
[2024-03-23] MEDS: hydrALAZINE HCL 20 MG/ML VIAL 10 MG IV PUSH (12:12)
[2024-03-23 12:13] LABS: Glucose Point of Care 304 mg/dl (65-105)
--- NOTE | 2024-03-23 13:07 | P.PNNP_ITS ---
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 His BUN has risen, probably due to hyper catabolic state from his illness. * The patient's urine output is very high even though he is only getting 40mg of Lasix per day. Possibly this is post ATN diuresis. (2) Chronic kidney disease, stage 3: Code(s): N18.3 - Chronic kidney disease, stage 3 (moderate) Status: Chronic Assessment and Plan: * baseline creatinine seems to run ~ 1.4 - 1.7mg/dl * this would cause him to fluctuate between CKD stage 3A and stage 3B * likely secondary to hypertension, diabetes, severe vascular disease (CAD + PAD + hyperlipidemia), and age (3) Hyperkalemia: Code(s): E87.5 - Hyperkalemia Status: Acute Assessment and Plan: * resolved * Potassium 4.0 today. (4) Acute respiratory failure: Qualifiers: Respiratory failure complication: unspecified whether with hypoxia or hypercapnia Qualified Code(s): J96.00 - Acute respiratory failure, unspecified whether with hypoxia or hypercapnia Code(s): J96.00 - Acute respiratory failure, unspecified whether with hypoxia or hypercapnia Status: Acute Assessment and Plan: * suspect multifactorial etiology: * large left pleural effusion/ whiteout of left hemithorax * hypoxia * AMS/encephalopathy * intubated on 03/15/24; extubated earlier on 03/21 but then quickly re-intubated * on aztreonam and vancomycin. * On Lasix 40mg IV daily. * MRSA in the sputum. He is on vancomycin. * continue supportive care (5) Pleural effusion, left: Code(s): J90 - Pleural effusion, not elsewhere classified Status: Acute Assessment and Plan: * as noted by recent CXR * contributing component to #4 * s/p left thoracentesis by IR on 03/15/24 * pleural fluid studies/analysis noted * on antibiotics as above (6) ST elevation (STEMI) myocardial infarction: Code(s): I21.3 - ST elevation (STEMI) myocardial infarction of unspecified site Status: Acute Assessment and Plan: * admission EKG showed inferior lateral ST-elevation [place] * s/p cardiac cath with PTCA/PCI with KENYA x 1 to mid RCA which was 90% blocked * no LV gram was performed due to renal dysfunction * Cardiology following * Echo results noted * remains on DAPT and statin (7) Hypernatremia: Code(s): E87.0 - Hyperosmolality and hypernatremia Status: Acute Assessment and Plan: * due to free water deficit and free water loss from diuretics * Sodium level is a little better over the last few days. * He is getting tube feeding flushes 200 Q 6. (8) Atrial fibrillation: Code(s): I48.91 - Unspecified atrial fibrillation Status: Acute Assessment and Plan: * on amiodarone * s/p cardioversion on 03/11 * on anticoagulation * Cardi
--- NOTE | 2024-03-23 13:07 | PM.PNNEP ---
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 His BUN has risen, probably due to hyper catabolic state from his illness. The patient's urine output is very high even though he is only getting 40mg of Lasix per day. Possibly this is post ATN diuresis. (2) Chronic kidney disease, stage 3: Code(s): N18.3 - Chronic kidney disease, stage 3 (moderate) Status: Chronic Assessment and Plan: baseline creatinine seems to run ~ 1.4 - 1.7mg/dl this would cause him to fluctuate between CKD stage 3A and stage 3B likely secondary to hypertension, diabetes, severe vascular disease (CAD + PAD + hyperlipidemia), and age (3) Hyperkalemia: Code(s): E87.5 - Hyperkalemia Status: Acute Assessment and Plan: resolved Potassium 4.0 today. (4) Acute respiratory failure: Qualifiers: Respiratory failure complication: unspecified whether with hypoxia or hypercapnia Qualified Code(s): J96.00 - Acute respiratory failure, unspecified whether with hypoxia or hypercapnia Code(s): J96.00 - Acute respiratory failure, unspecified whether with hypoxia or hypercapnia Status: Acute Assessment and Plan: suspect multifactorial etiology: large left pleural effusion/ whiteout of left hemithorax hypoxia AMS/encephalopathy intubated on 03/15/24; extubated earlier on 03/21 but then quickly re-intubated on aztreonam and vancomycin. On Lasix 40mg IV daily. MRSA in the sputum. He is on vancomycin. continue supportive care (5) Pleural effusion, left: Code(s): J90 - Pleural effusion, not elsewhere classified Status: Acute Assessment and Plan: as noted by recent CXR contributing component to #4 s/p left thoracentesis by IR on 03/15/24 pleural fluid studies/analysis noted on antibiotics as above (6) ST elevation (STEMI) myocardial infarction: Code(s): I21.3 - ST elevation (STEMI) myocardial infarction of unspecified site Status: Acute Assessment and Plan: admission EKG showed inferior lateral ST-elevation [place] s/p cardiac cath with PTCA/PCI with KENYA x 1 to mid RCA which was 90% blocked no LV gram was performed due to renal dysfunction Cardiology following Echo results noted remains on DAPT and statin (7) Hypernatremia: Code(s): E87.0 - Hyperosmolality and hypernatremia Status: Acute Assessment and Plan: due to free water deficit and free water loss from diuretics Sodium level is a little better over the last few days. He is getting tube feeding flushes 200 Q 6. (8) Atrial fibrillation: Code(s): I48.91 - Unspecified atrial fibrillation Status: Acute Assessment and Plan: on amiodarone s/p cardioversion on 03/11 on anticoagulation Cardiology following (9) Anemia: Code(s): D64.9 - Anemia, unspecified Status: Acute Assessment and Plan: due in part to CKD and acute illness Hemoglobin varying around 8.0. 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
[2024-03-23 15:54] LABS: Glucose Point of Care 259 mg/dl (65-105)
[2024-03-23 20:33] LABS: Glucose Point of Care 170 mg/dl (65-105)
[2024-03-23] MEDS: SENNA/DOCUSATE SODIUM TABLET 1 TAB PO (21:01)
[2024-03-23] MEDS: LABETALOL HCL INJ 100 MG/20 ML VIAL 20 MG IV PUSH (22:12)
[2024-03-24] VITALS (38 sets, daily range): BP systolic 117–195; BP diastolic 40–67; PULSE 67–82; RESP 16–25; TEMP 37.3–38.4; O2SAT 94–100
[2024-03-24] MEDS: METOCLOPRAMIDE HCL 10 MG TABLET FEED TUBE ×4 (00:14→23:45)
[2024-03-24 00:23] LABS: Glucose Point of Care 195 mg/dl (65-105)
[2024-03-24] MEDS: PROPOFOL IV EMULSION 100 ML 17.55 MG IV CONT ×2 (02:53→07:45)
[2024-03-24] MEDS: INSULIN ASPART (*BKC) 100 UNITS/ML SUB-Q ×6 (04:46→23:45)
[2024-03-24 04:51] LABS: Glucose Point of Care 272 mg/dl (65-105)
[2024-03-24 05:22] LABS: Alveolar/Arterial O2 Gradient 101.2 mmHg; Base Excess ABG 2.9 mEq/l (+/-2.0); Carboxyhemoglobin 0.6 % THb (0-2.0); Fractional Inspired Oxygen 35 %; HCO3 ABG 27.6 mEq/l (22.0-26.0); Methemoglobin ABG 0.3 %THb (0-1.5); Oxygen Content ABG 16.5 %vol (16.0-22.0); Oxygen Saturation ABG 97.6 % (95.0-100.0); PCO2 ABG 42.9 mmHg (35.0-45.0); PO2 ABG 98.5 mmHg (80.0-100.0); PO2 FiO2 Ratio Arterial Blood 2.81 %; Reduced Hemoglobin 2.1 %THb (0-5.0); pH ABG 7.427 (7.350-7.450)
[2024-03-24 05:23] LABS: Arterial Blood Gas Vent Mode CMV; Arterial Blood Gas Ventilator rate 16 /MIN; Device VENTILATOR; Modified Allen's Test Pass; Site Drawn LEFT RADIAL
[2024-03-24 05:24] LABS: Arterial Blood Gas PEEP 10 cmH2O; Arterial Blood Gas Tidal Volume 450 ml
[2024-03-24] MEDS: CENTRAL LINE FLUSH 10 ML IV PUSH ×3 (06:19→21:14)
[2024-03-24 06:23] LABS: Hematocrit 28.3 % (42.0-52.0); Hemoglobin 8.1 g/dL (14.0-18.0); Mean Corpuscular HGB Conc 28.6 g/dl (32-36); Mean Corpuscular Hemoglobin 27.6 pg (26-34); Mean Corpuscular Volume 96.6 fl (80-100); Mean Platelet Volume 11.8 fl (7.4-10.4); Platelet Count Result 239 k/mm3 (150-375); Red Blood Count 2.93 M/mm3 (4.6-6.20); Red Cell Distribution Width 17.2 % (11.5-14.5); White Blood Count 13.9 K/mm3 (4.5-10.0)
[2024-03-24 06:34] LABS: Alanine Aminotransferase 43 U/L (6-50); Alkaline Phosphatase 109 U/L (38-126); Anion Gap 2 mmol/L (4-12); Aspartate Amino Transferase 59 U/L (17-59); Bilirubin,Total 0.4 mg/dL (0.2-1.3); Blood Urea Nitrogen 89 mg/dL (9-20); Calcium 8.4 mg/dL (8.4-10.2); Carbon Dioxide 33 mmol/L (22-30); Chloride 111 mmol/L (98-107); Estimated CRCL calculation 66 ml/min; Estimated Glomerular Filt Rate 56; Glucose 285 mg/dL (65-110); Magnesium 2.2 mg/dL (1.6-2.3); Phosphorus 3.5 mg/dL (2.5-4.5); Potassium 3.7 mmol/L (3.4-5.0); Sodium 146 mmol/L (137-145)
--- NOTE | 2024-03-24 08:15 | PM.PNCARD ---
Progress Note: A&P Assessment and Plan (1) ST elevation (STEMI) myocardial infarction: Code(s): I21.3 - ST elevation (STEMI) myocardial infarction of unspecified site Status: Acute (2) Atrial fibrillation: Code(s): I48.91 - Unspecified atrial fibrillation Status: Acute Plan 63-year-old man with: Multivessel coronary disease with previous stenting. Presented initially to this hospital with STEMI related to high-grade stenosis in the mid circumflex. This was treated successfully with emergency drug-eluting stent with a good angiographic result. Event was complicated by atrial fibrillation which is quiescent on amiodarone following DC cardioversion. He also has extensive peripheral vascular disease and had acute on chronic kidney injury following the event. His respiratory status continues to be difficult and he remains dependent on ventilator. He was extubated for a couple of days in the middle of this hospitalization but following that remains dependent on ventilator support. If he is not weanable he will potentially need to be discharged to a chronic ventilator facility at some point Horacio Cleaning MD [facility] Subjective Date/time seen: Date of service: 03/24/24 08:15 Interval history: Follow-up visit in this 63-year-old man with diffuse coronary and peripheral arterial disease. Presented to the hospital on 03/04/2024 with some neck pain and altered mental status. STEMI was declared because of inferolateral ST segment elevation. High-grade stenosis in the trunk of the circumflex was identified and treated with PCI as detailed in the catheterization lab report. Previous LAD and right coronary stents were patent. Patient remains hospitalized was having difficulty with recurrence of atrial fibrillation last evening. This was a accompanied by hypotension requiring transfer back to the ICU. Likely this is a combination of his atrial fib other medications that were on board for hypertension. He is receiving intravenous amiodarone at this time and persisting atrial fib with heart rate 100-110. He is resting relatively comfortably upon awakening he offers no specific complaints. Date of service 03/09/2024: He was not complaining of chest pain earlier today is reported but not complaints of significant reproducible chest pain worse with deep breathing, movement, coughing or any palpation. Morphine helps. BP variable, Khanh-Synephrine held secondary to hypertension. Date of service 03/10/2024: Patient is sleepy but arousable. Feels better today. No chest pain. Breathing stable. He is off Khanh-Synephrine. BP much more stable. Remains tachycardic in AFib with RVR heart rates 120s on average. Date of service 03/11/2024: The patient is hemodynamically stable is oxygenating adequately on nasal cannula O2 but is complaining that he is still short of breath with modest activity. Likely discussion with the patient today about the fact that he is persisting in atrial fibrillation now for the last 4 days despite intravenous amiodarone. Recommend attempting DC cardioversion. Because of his medical complexity and obesity will need to coordinate this with anesthesia for airway protection. Will try to get this scheduled for today Date of service 03/12/2024: No cardiovascular complaints today. Remaining in sinus rhythm. Intravenous amiodarone stopped today. Remains on p.o. amiodarone. Hemoglobin drops again to breathe over 88, intravenous heparin. Maintains on dual anti-platelet therapy. Patient complains of dysuria would like his Ayoub catheter removed if possible Date of service 03/13/2024: The patient does look more comfortable today and for the last couple of days. Moved out of ICU. Oxygenating well. No new cardiovascular complaints/concerns. Maintaining sinus rhythm on telemetry. Date of service 03/14/2024: He is complaining of some shortness of breath. He is also confused, has pulled out his IV and remove
[2024-03-24] MEDS: CLOPIDOGREL BISULFATE 75 MG TABLET PO (08:30)
[2024-03-24] MEDS: METOPROLOL TARTRATE 25 MG TABLET PO ×2 (08:30→20:36)
[2024-03-24] MEDS: ASPIRIN 81 MG CHEWABLE TABLET PO (08:30)
[2024-03-24] MEDS: FUROSEMIDE INJ 40 MG/4 ML VIAL IV PUSH (08:31)
[2024-03-24] MEDS: PANTOPRAZOLE SODIUM IV 40 MG VIAL IV PUSH ×2 (08:31→20:36)
[2024-03-24] MEDS: POTASSIUM CHLORIDE 20 MEQ PACKET (FOR LIQUID) FEED TUBE (08:31)
[2024-03-24] MEDS: ENOXAPARIN 40 MG/0.4 ML SYRINGE SUB-Q (08:31)
[2024-03-24] MEDS: AMIODARONE HCL 200 MG TABLET 400 MG PO (08:31)
[2024-03-24] MEDS: ROSUVASTATIN 10 MG TABLET 20 MG PO (08:32)
[2024-03-24] MEDS: MINERAL OIL/WHITE PETROLATUM OINTMENT 1 APPLIC EACH EYE ×2 (08:32→20:37)
[2024-03-24] MEDS: polyethylene glycoL 3350 17 GM POWD.PACK PO (08:32)
[2024-03-24] MEDS: INSULIN GLARGINE (*BKC) 100 UNITS/ML 75 UNITS SUB-Q (08:53)
[2024-03-24 09:06] LABS: Glucose Point of Care 289 mg/dl (65-105)
--- NOTE | 2024-03-24 09:14 | WPDINTPN ---
Progress Note: A&P Assessment and Plan (1) Acute respiratory failure: Qualifiers: Respiratory failure complication: unspecified whether with hypoxia or hypercapnia Qualified Code(s): J96.00 - Acute respiratory failure, unspecified whether with hypoxia or hypercapnia Code(s): J96.00 - Acute respiratory failure, unspecified whether with hypoxia or hypercapnia Status: Acute Assessment and Plan: ? Acute respiratory failure likely related to large left pleural effusion, hypoxia, encephalopathy, mottling, requiring intubation on 03/15/24. 03/18: Pleural effusion improving clinically and radiographically Microbiology studies: -03/16 Blood cx: no growth to date -03/16 Sputum cx: MRSA growth -03/16 Urine cx no growth -03/15 Left Pleural fluid: no organisms seen, pending cultures and cytology -03/18 Right pleural fluid: no organisms seen. Pathology report without malignancy, pending cytology -03/21: failed extubation and emergently reintubated after desaturating. Follow up chest CT without new cardiopulmonary disease changes, however possible cholecystitis. Received IV methylprednisone after reintubation for any potential airway edema. -Continue Propofol infusion at 25 mcg/kg/min -Sedation goal RASS of 0 to -2, with daily sedation vacation -Continue CMV mode of ventilation, PEEP 10, FiO2 40% -ABG reviewed. Vent settings reviewed -continue bronchodilators -Decrease diuresis to 40 mg IV q daily -continue vancomycin, aztreonam (03/16) for seven days -Completed 5 day course of Flagyl -continue diuresis. - 03/24 failed weaning trial yesterday as patient developed respiratory distress with increased work of breathing on pressure support after some time. Will attempt a weaning trial again today 03/16/2024: CT chest/Abdomen/Pelvis non contrast IMPRESSION: 1. Lines and tubes in expected position. 2. Persistent consolidation in the left mid to lower lung zone correspond to a small left pleural effusion and associated atelectasis on prior CT. Superimposed pneumonia not excludable. 3. Increasing pulmonary vascular congestion with indistinct interstitial and hazy airspace opacity right mid to lower lung zone likely combination of mild pulmonary edema or pneumonia superimposed over a small to moderate-sized right pleural effusion which is much better appreciated on prior CT. 4. Large cardiac silhouette on prior CT correspond to a large pericardial effusion. (2) Pleural effusion, left: Code(s): J90 - Pleural effusion, not elsewhere classified Status: Acute Assessment and Plan: Large left pleural effusion -03/15:? Left thoracentesis with drainage of 500 mL of yellowish fluid 03/18 repeat thoracentesis on the left 550 mL fluid was removed -pleural fluid labs are pending -pleural fluid Gram stain did not show any organisms, pleural fluid culture no growth so far -antibiotics as above -03/22: Chest CT from 03/21 reviewed, persistent bilateral pleural effusions, although mild in size. (3) Pericardial effusion: Code(s): I31.39 - Other pericardial effusion (noninflammatory) Status: Acute Assessment and Plan: 03/16: CT chest showed large pericardial effusion, which was also seen on the CT CT scan of the chest on 03/07/2024 -cardiology is aware, no tamponade physiology at this time as blood pressures are stable -03/22: Repeat ECHO results reviewed ,small-moderate size pericardial effusion, not enough to cause hemodynamic instability. Will continue to monitor Date of Service: 03/21/24 Procedure(s): CA echo limited Summary ? 1. Normal left ventricular size and systolic contractility. ? 2. Normal right ventricular size, no sign of right ventricular diastolic collapse. ? 3. Small to moderate-sized circumferential pericardial.? 1.5 cm anterior and 2.0 cm posterior to the heart+. ? 4. Mildly sclerotic aortic valve Cardiology following (4) Acute renal failure superimposed on stage 3 chronic kidney disease: Code(
[2024-03-24 09:59] LABS: Triglycerides 102 mg/dL (<150)
--- NOTE | 2024-03-24 12:00 | P.PNNP_ITS ---
Progress Note: A&P Assessment and Plan (1) SIM (acute kidney injury): Code(s): N17.9 - Acute kidney failure, unspecified Status: Acute Assessment and Plan: * relatively stable if not close to baseline * suspect initial insult due to: * acute HI * concurrent [employer] * prerenal factors(?) * cannot r/o an element of CKD progression * second insult likely due to * fluctuating hypotension/hemodynamic instability * fluctuating H/H * Afib with RVR * contrast (cardiac cath + CT scan) * UTI * evaluation to date noted: * urine eosinophil negative * urine electrolytes prerenal * mild proteinuria * CPK normal * renal ultrasound c/w CKD * His creatinine is better today. * His creatinine is actually lower than his baseline. Probably because of his weakness, his creatinine turned over is lower. I think his kidneys are better but also with the lower creatinine turned over this enhances the improvement in the creatinine. * Urine output is much better. He made almost 4L of urine yesterday. (2) Chronic kidney disease, stage 3: Code(s): N18.3 - Chronic kidney disease, stage 3 (moderate) Status: Chronic Assessment and Plan: * baseline creatinine seems to run ~ 1.4 - 1.7mg/dl * this would cause him to fluctuate between CKD stage 3A and stage 3B * likely secondary to hypertension, diabetes, severe vascular disease (CAD + PAD + hyperlipidemia), and age (3) Hyperkalemia: Code(s): E87.5 - Hyperkalemia Status: Acute Assessment and Plan: * resolved * Potassium 3.7 today. (4) Acute respiratory failure: Qualifiers: Respiratory failure complication: unspecified whether with hypoxia or hypercapnia Qualified Code(s): J96.00 - Acute respiratory failure, unspecified whether with hypoxia or hypercapnia Code(s): J96.00 - Acute respiratory failure, unspecified whether with hypoxia or hypercapnia Status: Acute Assessment and Plan: * suspect multifactorial etiology: * large left pleural effusion/ whiteout of left hemithorax * hypoxia * AMS/encephalopathy * Weakness * Renal failure * intubated on 03/15/24; extubated earlier on 03/21 but then quickly re-intubated * on aztreonam and vancomycin. * On Lasix 40mg IV daily. * MRSA in the sputum. He is on vancomycin. * continue supportive care (5) Pleural effusion, left: Code(s): J90 - Pleural effusion, not elsewhere classified Status: Acute Assessment and Plan: * as noted by recent CXR * contributing component to #4 * s/p left thoracentesis by IR on 03/15/24 * pleural fluid studies/analysis noted * on antibiotics as above (6) ST elevation (STEMI) myocardial infarction: Code(s): I21.3 - ST elevation (STEMI) myocardial infarction of unspecified site Status: Acute Assessment and Plan: * admission EKG showed inferior lateral ST-elevation HI * s/p cardiac cath with PTCA/PCI with KENYA x 1 to mid RCA which was 90% blocked * no LV gram was performed due to renal dysfunction * Cardiology following * Echo results noted * remains on DAPT and statin * No sign of bleeding (7) Hypernatremia: Code(s): E87.0 - Hyperosmolality and hypernatremia Status: Acute Assessment and Plan: * due to free water deficit and free water loss from diuretics * Sodium level is a little better over the last few days. * He is getting tube feeding flushes 200 Q 6. * Sodium level is about the same today as it was before.
--- NOTE | 2024-03-24 12:00 | PM.PNNEP ---
Progress Note: A&P Assessment and Plan (1) SIM (acute kidney injury): Code(s): N17.9 - Acute kidney failure, unspecified Status: Acute Assessment and Plan: relatively stable if not close to baseline suspect initial insult due to: acute [place] concurrent [employer] ATT[employer]ANT prerenal factors(?) cannot r/o an element of CKD progression second insult likely due to fluctuating hypotension/hemodynamic instability fluctuating H/H Afib with RVR contrast (cardiac cath + CT scan) UTI evaluation to date noted: urine eosinophil negative urine electrolytes prerenal mild proteinuria CPK normal renal ultrasound c/w CKD His creatinine is better today. His creatinine is actually lower than his baseline. Probably because of his weakness, his creatinine turned over is lower. I think his kidneys are better but also with the lower creatinine turned over this enhances the improvement in the creatinine. Urine output is much better. He made almost 4L of urine yesterday. (2) Chronic kidney disease, stage 3: Code(s): N18.3 - Chronic kidney disease, stage 3 (moderate) Status: Chronic Assessment and Plan: baseline creatinine seems to run ~ 1.4 - 1.7mg/dl this would cause him to fluctuate between CKD stage 3A and stage 3B likely secondary to hypertension, diabetes, severe vascular disease (CAD + PAD + hyperlipidemia), and age (3) Hyperkalemia: Code(s): E87.5 - Hyperkalemia Status: Acute Assessment and Plan: resolved Potassium 3.7 today. (4) Acute respiratory failure: Qualifiers: Respiratory failure complication: unspecified whether with hypoxia or hypercapnia Qualified Code(s): J96.00 - Acute respiratory failure, unspecified whether with hypoxia or hypercapnia Code(s): J96.00 - Acute respiratory failure, unspecified whether with hypoxia or hypercapnia Status: Acute Assessment and Plan: suspect multifactorial etiology: large left pleural effusion/ whiteout of left hemithorax hypoxia AMS/encephalopathy Weakness Renal failure intubated on 03/15/24; extubated earlier on 03/21 but then quickly re-intubated on aztreonam and vancomycin. On Lasix 40mg IV daily. MRSA in the sputum. He is on vancomycin. continue supportive care (5) Pleural effusion, left: Code(s): J90 - Pleural effusion, not elsewhere classified Status: Acute Assessment and Plan: as noted by recent CXR contributing component to #4 s/p left thoracentesis by IR on 03/15/24 pleural fluid studies/analysis noted on antibiotics as above (6) ST elevation (STEMI) myocardial infarction: Code(s): I21.3 - ST elevation (STEMI) myocardial infarction of unspecified site Status: Acute Assessment and Plan: admission EKG showed inferior lateral ST-elevation MO s/p cardiac cath with PTCA/PCI with KENYA x 1 to mid RCA which was 90% blocked no LV gram was performed due to renal dysfunction Cardiology following Echo results noted remains on DAPT and statin No sign of bleeding (7) Hypernatremia: Code(s): E87.0 - Hyperosmolality and hypernatremia Status: Acute Assessment and Plan: due to free water deficit and free water loss from diuretics Sodium level is a little better over the last few days. He is getting tube feeding flushes 200 Q 6. Sodium level is about the same today as it was before. As renal function improves this should improve as well. (8) Atrial fibrillation: Code(s): I48.91 - Unspecified atrial fibrillation Status: Acute Assessment and Plan: on amiodarone s/p cardioversion on 03/11 on anticoagulation Cardiology following (9) Anemia: Code(s): D64.9 - Anemia, unspecified Status: Acute Assessment and Plan: due in part to CKD and acute illness Hemoglobin varying around 8.0. 8.1 today. On Epogen (10) Insulin dependent type
[2024-03-24 12:53] LABS: Glucose Point of Care 285 mg/dl (65-105)
[2024-03-24] MEDS: LABETALOL HCL INJ 100 MG/20 ML VIAL 20 MG IV PUSH ×2 (12:59→19:18)
[2024-03-24 16:25] LABS: Glucose Point of Care 265 mg/dl (65-105)
[2024-03-24] MEDS: hydrALAZINE HCL 20 MG/ML VIAL 10 MG IV PUSH ×2 (16:26→20:36)
--- NOTE | 2024-03-24 18:09 | PM.IMPN ---
Progress Note: A&P Assessment and Plan (1) Pleural effusion, left: Code(s): J90 - Pleural effusion, not elsewhere classified Status: Acute (2) Pericardial effusion: Code(s): I31.39 - Other pericardial effusion (noninflammatory) Status: Acute (3) Atrial fibrillation with RVR: Code(s): I48.91 - Unspecified atrial fibrillation Status: Acute (4) Anemia: Code(s): D64.9 - Anemia, unspecified Status: Acute (5) Cholecystitis: Code(s): K81.9 - Cholecystitis, unspecified Status: Acute Plan 63-year-old male with past medical history CAD, previous IL status post PCI, peripheral artery disease, ADHD, CKD stage 3, chronic pain syndrome, degenerative joint disease, history of right BKA, history of tobacco abuse, insulin-dependent diabetes mellitus, essential hypertension, hyperlipidemia presented to [facility] on 03/04/2024 with complaint of chest pain neck pain and shortness of breath. EKG demonstrated acute inferior lateral ST-elevation IL and patient was taken to the cardiac labor relations teacher where PCI with KENYA x1 to mid circumflex was placed due to 90% occlusion and believed to be the culprit artery. No left ventriculogram was performed due to elevated creatinine. On 03/15/2024 patient required intubation for acute respiratory failure likely related to large left pleural effusion, hypoxia, encephalopathy. Failed extubation on 03/21/2024 acquiring emergent re-intubation due to desaturating. Remains intubated. 03/24 Currently the patient's care is guided by the hot stone setter team along with Cardiology and Nephrology. He is currently not sedated and has a RASS of +1. Goal RASS 0 to negative to with daily sedation vacation. Antibiotics have been completed. Status post left thoracentesis yielding 500 mL of fluid on 03/15/2024 and again on 03/18/2024 yielding 550 mL of fluid. Continue to follow up cultures. Antibiotics have been completed. CT chest on 03/16 demonstrated a large pericardial effusion however at this moment cardiology recommends starting only as there is no tamponade physiology. Repeat echo on 03/22 demonstrates small to moderate-sized pericardial effusion. Throughout all of this the patient developed an SIM which continues to improve and urine output remains good. Nephrology is following. Hypernatremia has improved with free water flushes. Blood sugars pain uncontrolled and Lantus has been increased per the hot stone setter. Course also complicated by AFib with RVR -he received amiodarone bolus multiple times and then are cardioversion. Amiodarone is being continued and the patient is in normal sinus rhythm. Currently heparin is being held due to anemia. Lovenox being administered prophylactic dosing. FEN: Tube feeds. Saline lock IV. GI prophylaxis: Protonix DVT prophylaxis: Lovenox Lines: ETT Code Status: Full code Dispo: Stable in ICU. Subjective Date/time seen: 03/24/24 18:09 Interval history: Intubated. Does not indicate he is in pain or distress. Follows simple commands. Review of Systems Review of Systems: All systems reviewed & are unremarkable except as noted in HPI and below (Subjective) Exam Const: General: comfortable and no acute distress Other: Intubated. No sedation currently HENMT: Other: ETT Resp: Other: Coarse breath sounds, mechanical breath sounds Cardio: Rhythm: regular rhythm Extrem: General: edema Objective Data Vital Signs Vital Signs: Vital Signs - 24 hr 03/23/24 20:29 03/23/24 20:35 03/23/24 20:35 Temperature Pulse Rate 78 79 79 Respiratory Rate 20 20 Blood Pressure Pulse Oximetry 97 Oxygen Delivery Mechanical Ventilation Fraction of Inspired Oxygen 03/23/24 21:01 03/23/24 22:12 03/23/24 20:00 Temperature Pulse Rate 80 75 Respiratory Rate Blood Pressure Pulse Oximetry 98 Oxygen Delivery Mechanical Ventilation Fraction of Inspired Oxygen
[2024-03-24 20:27] LABS: Glucose Point of Care 283 mg/dl (65-105)
[2024-03-24] MEDS: SENNA/DOCUSATE SODIUM TABLET 1 TAB PO (20:37)
[2024-03-24] MEDS: PROPOFOL IV EMULSION 100 ML 10.53 MG IV CONT (23:45)
[2024-03-24] MEDS: ACETAMINOPHEN 325 MG TABLET 650 MG PO (23:45)
[2024-03-25] VITALS (42 sets, daily range): BP systolic 139–178; BP diastolic 42–117; PULSE 63–83; RESP 17–33; TEMP 37.7–38.3; O2SAT 92–99
[2024-03-25 00:29] LABS: Glucose Point of Care 300 mg/dl (65-105)
[2024-03-25 04:21] LABS: Glucose Point of Care 283 mg/dl (65-105)
[2024-03-25] MEDS: INSULIN ASPART (*BKC) 100 UNITS/ML SUB-Q ×6 (04:24→23:39)
[2024-03-25 05:45] LABS: Alveolar/Arterial O2 Gradient 136.5 mmHg; Base Excess ABG 6.4 mEq/l (+/-2.0); Carboxyhemoglobin 0.7 % THb (0-2.0); Fractional Inspired Oxygen 35 %; HCO3 ABG 30.2 mEq/l (22.0-26.0); Methemoglobin ABG 0.3 %THb (0-1.5); Oxygen Content ABG 13.3 %vol (16.0-22.0); Oxygen Saturation ABG 94.5 % (95.0-100.0); PCO2 ABG 40.2 mmHg (35.0-45.0); PO2 ABG 66.3 mmHg (80.0-100.0); PO2 FiO2 Ratio Arterial Blood 1.89 %; Total Hemoglobin 10.1 g/dL (12.0-18.0); pH ABG 7.493 (7.350-7.450)
[2024-03-25 05:46] LABS: Device VENTILATOR; Modified Allen's Test Pass; Site Drawn LEFT RADIAL
[2024-03-25 05:47] LABS: Arterial Blood Gas PEEP 10 cmH2O; Arterial Blood Gas Tidal Volume 450 ml; Arterial Blood Gas Vent Mode CMV; Arterial Blood Gas Ventilator rate 16 /MIN
[2024-03-25] MEDS: METOCLOPRAMIDE HCL 10 MG TABLET FEED TUBE ×4 (05:59→23:46)
[2024-03-25] MEDS: CENTRAL LINE FLUSH 10 ML IV PUSH ×3 (06:00→20:17)
[2024-03-25 06:14] LABS: Hematocrit 30.9 % (42.0-52.0); Hemoglobin 9.1 g/dL (14.0-18.0); Mean Corpuscular HGB Conc 29.4 g/dl (32-36); Mean Corpuscular Hemoglobin 28.2 pg (26-34); Mean Corpuscular Volume 95.7 fl (80-100); Platelet Count Result 285 k/mm3 (150-375); Red Blood Count 3.23 M/mm3 (4.6-6.20); Red Cell Distribution Width 17.4 % (11.5-14.5); White Blood Count 16.7 K/mm3 (4.5-10.0)
[2024-03-25 06:56] LABS: Alanine Aminotransferase 64 U/L (6-50); Albumin Level 3.4 g/dL (3.5-5.1); Alkaline Phosphatase 129 U/L (38-126); Anion Gap 8 mmol/L (4-12); Aspartate Amino Transferase 87 U/L (17-59); Bilirubin,Total 0.5 mg/dL (0.2-1.3); Blood Urea Nitrogen 83 mg/dL (9-20); Carbon Dioxide 31 mmol/L (22-30); Chloride 110 mmol/L (98-107); Estimated CRCL calculation 58 ml/min; Estimated Glomerular Filt Rate 47; Glucose 311 mg/dL (65-110); Magnesium 2.4 mg/dL (1.6-2.3); Phosphorus 3.7 mg/dL (2.5-4.5); Potassium 3.8 mmol/L (3.4-5.0); Sodium 149 mmol/L (137-145)
[2024-03-25 07:49] LABS: Glucose Point of Care 334 mg/dl (65-105)
[2024-03-25] MEDS: INSULIN GLARGINE (*BKC) 100 UNITS/ML 75 UNITS SUB-Q (08:22)
[2024-03-25] MEDS: ASPIRIN 81 MG CHEWABLE TABLET PO (08:24)
[2024-03-25] MEDS: PANTOPRAZOLE SODIUM IV 40 MG VIAL IV PUSH ×2 (08:25→20:15)
[2024-03-25] MEDS: ENOXAPARIN 40 MG/0.4 ML SYRINGE SUB-Q (08:25)
[2024-03-25] MEDS: EPOETIN ALFA-EPBX 10,000 UNITS/ML VIAL 10000 UNITS SUB-Q (08:25)
[2024-03-25] MEDS: polyethylene glycoL 3350 17 GM POWD.PACK PO (08:25)
[2024-03-25] MEDS: CLOPIDOGREL BISULFATE 75 MG TABLET PO (08:25)
[2024-03-25] MEDS: AMIODARONE HCL 200 MG TABLET 400 MG PO (08:25)
[2024-03-25] MEDS: ROSUVASTATIN 10 MG TABLET 20 MG PO (08:25)
[2024-03-25] MEDS: FUROSEMIDE INJ 40 MG/4 ML VIAL IV PUSH (08:26)
[2024-03-25] MEDS: METOPROLOL TARTRATE 25 MG TABLET PO ×2 (08:28→20:16)
[2024-03-25] MEDS: MINERAL OIL/WHITE PETROLATUM OINTMENT 1 APPLIC EACH EYE ×2 (08:45→20:17)
--- NOTE | 2024-03-25 08:47 | WPDINTPN ---
Progress Note: A&P Assessment and Plan (1) Acute respiratory failure: Qualifiers: Respiratory failure complication: unspecified whether with hypoxia or hypercapnia Qualified Code(s): J96.00 - Acute respiratory failure, unspecified whether with hypoxia or hypercapnia Code(s): J96.00 - Acute respiratory failure, unspecified whether with hypoxia or hypercapnia Status: Acute Assessment and Plan: ? Acute respiratory failure likely related to large left pleural effusion, hypoxia, encephalopathy, mottling, requiring intubation on 03/15/24. 03/18: Pleural effusion improving clinically and radiographically Microbiology studies: -03/16 Blood cx: no growth to date -03/16 Sputum cx: MRSA growth -03/16 Urine cx no growth -03/15 Left Pleural fluid: no organisms seen, pending cultures and cytology -03/18 Right pleural fluid: no organisms seen. Pathology report without malignancy, pending cytology -03/21: failed extubation and emergently reintubated after desaturating. Follow up chest CT without new cardiopulmonary disease changes, however possible cholecystitis. Received IV methylprednisone after reintubation for any potential airway edema. -Continue Propofol infusion at 25 mcg/kg/min -Sedation goal RASS of 0 to -2, with daily sedation vacation -Continue CMV mode of ventilation, PEEP 10, FiO2 40% -ABG reviewed. Vent settings reviewed -continue bronchodilators -Decrease diuresis to 40 mg IV q daily -completed 7 day course of vancomycin, aztreonam -Completed 5 day course of Flagyl - 03/24 failed weaning trial yesterday as patient developed respiratory distress with increased work of breathing on pressure support after some time. Will attempt a weaning trial again today - 03/25 decrease tidal volume to 420. Will re-attempt weaning trial again today. Continue diuretics 03/16/2024: CT chest/Abdomen/Pelvis non contrast IMPRESSION: 1. Lines and tubes in expected position. 2. Persistent consolidation in the left mid to lower lung zone correspond to a small left pleural effusion and associated atelectasis on prior CT. Superimposed pneumonia not excludable. 3. Increasing pulmonary vascular congestion with indistinct interstitial and hazy airspace opacity right mid to lower lung zone likely combination of mild pulmonary edema or pneumonia superimposed over a small to moderate-sized right pleural effusion which is much better appreciated on prior CT. 4. Large cardiac silhouette on prior CT correspond to a large pericardial effusion. (2) Pleural effusion, left: Code(s): J90 - Pleural effusion, not elsewhere classified Status: Acute Assessment and Plan: Large left pleural effusion -03/15:? Left thoracentesis with drainage of 500 mL of yellowish fluid 03/18 repeat thoracentesis on the left 550 mL fluid was removed -pleural fluid labs are pending -pleural fluid Gram stain did not show any organisms, pleural fluid culture no growth so far -antibiotics as above -03/22: Chest CT from 03/21 reviewed, persistent bilateral pleural effusions, although mild in size. (3) Pericardial effusion: Code(s): I31.39 - Other pericardial effusion (noninflammatory) Status: Acute Assessment and Plan: 03/16: CT chest showed large pericardial effusion, which was also seen on the CT CT scan of the chest on 03/07/2024 -cardiology is aware, no tamponade physiology at this time as blood pressures are stable -03/22: Repeat ECHO results reviewed ,small-moderate size pericardial effusion, not enough to cause hemodynamic instability. Will continue to monitor Date of Service: 03/21/24 Procedure(s): CA echo limited Summary ? 1. Normal left ventricular size and systolic contractility. ? 2. Normal right ventricular size, no sign of right ventricular diastolic collapse. ? 3. Small to moderate-sized circumferential pericardial.? 1.5 cm anterior and 2.0 cm posterior to the heart+. ? 4. Mildly sclerotic aortic valve Cardiology following (4) Acute
--- NOTE | 2024-03-25 10:23 | P.PNNP_ITS ---
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[employer] * prerenal factors(?) * cannot r/o an element of CKD progression * second insult likely due to * fluctuating hypotension/hemodynamic instability * fluctuating H/H * Afib with RVR * contrast (cardiac cath + CT scan) * UTI * evaluation to date noted: * urine eosinophil negative * urine electrolytes prerenal * mild proteinuria * CPK normal * renal ultrasound c/w CKD * creatinine is actually lower than his baseline * probably because of his weakness and bed-bound status, his creatinine turned over is lowe * continue follow trend of repeat labs and UOP (2) Chronic kidney disease, stage 3: Code(s): N18.3 - Chronic kidney disease, stage 3 (moderate) Status: Chronic Assessment and Plan: * baseline creatinine seems to run ~ 1.4 - 1.7mg/dl * this would cause him to fluctuate between CKD stage 3A and stage 3B * likely secondary to hypertension, diabetes, severe vascular disease (CAD + PAD + hyperlipidemia), and age (3) Acute respiratory failure: Qualifiers: Respiratory failure complication: unspecified whether with hypoxia or hypercapnia Qualified Code(s): J96.00 - Acute respiratory failure, unspecified whether with hypoxia or hypercapnia Code(s): J96.00 - Acute respiratory failure, unspecified whether with hypoxia or hypercapnia Status: Acute Assessment and Plan: * suspect multifactorial etiology: * large left pleural effusion/ whiteout of left hemithorax * hypoxia * AMS/encephalopathy * Weakness * Renal failure * intubated on 03/15/24; extubated earlier on 03/21 but then quickly re-intubated * on aztreonam and vancomycin * on IV lasix * continue supportive care (4) Pleural effusion, left: Code(s): J90 - Pleural effusion, not elsewhere classified Status: Acute Assessment and Plan: * as noted by recent CXR * contributing component to #4 * s/p left thoracentesis by IR on 03/15/24 * pleural fluid studies/analysis noted * on antibiotics as above (5) ST elevation (STEMI) myocardial infarction: Code(s): I21.3 - ST elevation (STEMI) myocardial infarction of unspecified site Status: Acute Assessment and Plan: * admission EKG showed inferior lateral ST-elevation [place] * s/p cardiac cath with PTCA/PCI with KENYA x 1 to mid RCA which was 90% blocked * no LV gram was performed due to renal dysfunction * Cardiology following * Echo results noted * remains on DAPT and statin (6) Hypernatremia: Code(s): E87.0 - Hyperosmolality and hypernatremia Status: Acute Assessment and Plan: * due to free water deficit and free water loss from diuretics * continue free water tube flushes with titration as needed * suspect as renal function improves, this should improve as well (7) Atrial fibrillation: Code(s): I48.91 - Unspecified atrial fibrillation Status: Acute Assessment and Plan: * on amiodarone * s/p cardioversion on 03/11 * on anticoagulation * Cardiology following (8) Anemia: Code(s): D64.9 - Anemia, unspecified Status: Acute Assessment and Plan: * due in part to CKD and acute illness * follow trend of H/H * on
--- NOTE | 2024-03-25 10:23 | PM.PNNEP ---
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(?) cannot r/o an element of CKD progression second insult likely due to fluctuating hypotension/hemodynamic instability fluctuating H/H Afib with RVR contrast (cardiac cath + CT scan) UTI evaluation to date noted: urine eosinophil negative urine electrolytes prerenal mild proteinuria CPK normal renal ultrasound c/w CKD creatinine is actually lower than his baseline probably because of his weakness and bed-bound status, his creatinine turned over is lowe continue follow trend of repeat labs and UOP (2) Chronic kidney disease, stage 3: Code(s): N18.3 - Chronic kidney disease, stage 3 (moderate) Status: Chronic Assessment and Plan: baseline creatinine seems to run ~ 1.4 - 1.7mg/dl this would cause him to fluctuate between CKD stage 3A and stage 3B likely secondary to hypertension, diabetes, severe vascular disease (CAD + PAD + hyperlipidemia), and age (3) Acute respiratory failure: Qualifiers: Respiratory failure complication: unspecified whether with hypoxia or hypercapnia Qualified Code(s): J96.00 - Acute respiratory failure, unspecified whether with hypoxia or hypercapnia Code(s): J96.00 - Acute respiratory failure, unspecified whether with hypoxia or hypercapnia Status: Acute Assessment and Plan: suspect multifactorial etiology: large left pleural effusion/ whiteout of left hemithorax hypoxia AMS/encephalopathy Weakness Renal failure intubated on 03/15/24; extubated earlier on 03/21 but then quickly re-intubated on aztreonam and vancomycin on IV lasix continue supportive care (4) Pleural effusion, left: Code(s): J90 - Pleural effusion, not elsewhere classified Status: Acute Assessment and Plan: as noted by recent CXR contributing component to #4 s/p left thoracentesis by IR on 03/15/24 pleural fluid studies/analysis noted on antibiotics as above (5) ST elevation (STEMI) myocardial infarction: Code(s): I21.3 - ST elevation (STEMI) myocardial infarction of unspecified site Status: Acute Assessment and Plan: admission EKG showed inferior lateral ST-elevation [place] s/p cardiac cath with PTCA/PCI with KENYA x 1 to mid RCA which was 90% blocked no LV gram was performed due to renal dysfunction Cardiology following Echo results noted remains on DAPT and statin (6) Hypernatremia: Code(s): E87.0 - Hyperosmolality and hypernatremia Status: Acute Assessment and Plan: due to free water deficit and free water loss from diuretics continue free water tube flushes with titration as needed suspect as renal function improves, this should improve as well (7) Atrial fibrillation: Code(s): I48.91 - Unspecified atrial fibrillation Status: Acute Assessment and Plan: on amiodarone s/p cardioversion on 03/11 on anticoagulation Cardiology following (8) Anemia: Code(s): D64.9 - Anemia, unspecified Status: Acute Assessment and Plan: due in part to CKD and acute illness follow trend of H/H on Epogen (9) Insulin dependent type 2 diabetes mellitus: Code(s): E11.9 - Type 2 diabetes mellitus without complications; Z79.4 - senior living (current) use of insulin Status: Acute Assessment and Plan: follow accu-cheks 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 Subjective Date/time seen: 03/25/24 10:23 Interval history: Follow-up for acute kidney injury/acute renal failure on chronic kidney disease. Chart reviewed since last seen - remains intubated/sedated and on mec
--- NOTE | 2024-03-25 10:33 | PCFNICU ---
ICU Rounding Note: Pt current nutrition is Nepro @ 45 ml/h. Prosource TF BID for additional 80 kcal and 20 g protein each. Flush 200 ml free water q 4 hours. Nutrition recommendation: No new nutrition recommendations. Continue current care plan and orders Last recorded weight is 116 kg. Bowel Motility: Last BM +1 03/24/24 Labs Reviewed: Hgb 9.1, Hct 30.9, Alb 3.4, Na 149, GFR 47, BUN 83, Cre 1.5, Glu 334, MAg 2.4 Meds Noted: Reglan, Protonix, lasix, miralax, lantus, propofol (on hold) Skin: DTU coccyx Additional Notes: Tolerating tube feeds. Sedation is on hold today. Continue to monitor Following daily in ICU rounds. Monitoring tube feeding tolerance, weights, labs, output, plan of care Follow in rounds, reassess Monday and Monday per policy.
[2024-03-25 11:31] LABS: Glucose Point of Care 356 mg/dl (65-105)
[2024-03-25] MEDS: PROPOFOL IV EMULSION 100 ML 10.53 MG IV CONT (11:45)
[2024-03-25] MEDS: VANCOMYCIN 1,250 MG/NS 250 ML 1,250 MG/250 ML BAG 166.67 MG IVPB (11:54)
--- NOTE | 2024-03-25 13:48 | PM.PNCARD ---
Progress Note: A&P Assessment and Plan (1) ST elevation (STEMI) myocardial infarction: Code(s): I21.3 - ST elevation (STEMI) myocardial infarction of unspecified site Status: Acute Assessment and Plan: History of multivessel coronary disease admission to the hospital on 03/[address] elevation IA underwent successful percutaneous revascularization of his mid circumflex which was technically challenging because of his extensive vascular disease and difficult vascular access. Procedure was ultimately done with a good angiographic result. Previous stented vessels in his LAD and right mid right coronary were remaining patent. He has extensive peripheral vascular disease and has undergone right lower extremity amputation. Continue clopidogrel 75 mg daily, aspirin 81 mg daily, high intensity statin (2) Atrial fibrillation with RVR: Code(s): I48.91 - Unspecified atrial fibrillation Status: Acute Assessment and Plan: S/p DCCV earlier during his hospitalization. Anticoagulation has not been initiated because of anemia requiring transfusion earlier in his hospitalization. (3) Acute renal failure superimposed on stage 3 chronic kidney disease: Code(s): N17.9 - Acute kidney failure, unspecified; N18.30 - Chronic kidney disease, stage 3 unspecified Status: Acute Assessment and Plan: Multifactorial secondary to acute IA, hypotension, contrast exposure. (4) Essential (primary) hypertension: Code(s): I10 - Essential (primary) hypertension Status: Chronic Assessment and Plan: Blood pressure is up and down. (5) Insulin dependent type 2 diabetes mellitus: Code(s): E11.9 - Type 2 diabetes mellitus without complications; Z79.4 - half-way (current) use of insulin Status: Acute Assessment and Plan: Management per hospitalist service (6) Peripheral arterial disease: Code(s): I73.9 - Peripheral vascular disease, unspecified Status: Acute Assessment and Plan: On ASA, plavix, statin (7) Dyslipidemia: Code(s): E78.5 - Hyperlipidemia, unspecified Status: Acute Assessment and Plan: Continue high intensity statin (8) CHF (congestive heart failure): Code(s): I50.9 - Heart failure, unspecified Status: Acute Assessment and Plan: Stable at this point Subjective Date/time seen: 03/25/24 13:48 Interval history: Follow-up visit in this 63-year-old man with diffuse coronary and peripheral arterial disease. Presented to the hospital on 03/04/2024 with some neck pain and altered mental status. STEMI was declared because of inferolateral ST segment elevation. High-grade stenosis in the trunk of the circumflex was identified and treated with PCI as detailed in the catheterization lab report. Previous LAD and right coronary stents were patent. Patient remains hospitalized was having difficulty with recurrence of atrial fibrillation last evening. This was a accompanied by hypotension requiring transfer back to the ICU. Likely this is a combination of his atrial fib other medications that were on board for hypertension. He is receiving intravenous amiodarone at this time and persisting atrial fib with heart rate 100-110. He is resting relatively comfortably upon awakening he offers no specific complaints. Date of service 03/09/2024: He was not complaining of chest pain earlier today is reported but not complaints of significant reproducible chest pain worse with deep breathing, movement, coughing or any palpation. Morphine helps. BP variable, Khanh-Synephrine held secondary to hypertension. Date of service 03/10/2024: Patient is sleepy but arousable. Feels better today. No chest pain. Breathing stable. He is off Khanh-Synephrine. BP much more stable. Remains tachycardic in AFib with RVR heart rates 120s on average. Date of service 03/11/2024: The patient is hemodynamically stable is oxygenating adequately
[2024-03-25] MEDS: LINEZOLID 600 MG/300 ML 600 MG/300 ML SOLN 300 MG IVPB ×2 (14:00→20:17)
[2024-03-25] MEDS: hydrALAZINE HCL 20 MG/ML VIAL 10 MG IV PUSH (15:04)
[2024-03-25 16:34] LABS: Glucose Point of Care 381 mg/dl (65-105)
[2024-03-25] MEDS: PROPOFOL IV EMULSION 100 ML 17.55 MG IV CONT (17:39)
[2024-03-25 20:05] LABS: Glucose Point of Care 369 mg/dl (65-105)
[2024-03-25] MEDS: TOLNAFTATE 1% POWDER 45 GM BTL 1 APPLIC TOPICAL (20:15)
[2024-03-25] MEDS: SENNA/DOCUSATE SODIUM TABLET 1 TAB PO (20:16)
[2024-03-25] MEDS: INSULIN GLARGINE (*BKC) 100 UNITS/ML 20 UNITS SUB-Q (20:17)
[2024-03-25] MEDS: PROPOFOL IV EMULSION 100 ML 21.06 MG IV CONT (22:24)
[2024-03-25 23:42] LABS: Glucose Point of Care 376 mg/dl (65-105)
[2024-03-26] VITALS (36 sets, daily range): BP systolic 90–170; BP diastolic 31–72; PULSE 72–87; RESP 16–29; TEMP 37.3–38.1; O2SAT 95–99
[2024-03-26 04:15] LABS: Glucose Point of Care 367 mg/dl (65-105)
[2024-03-26] MEDS: PROPOFOL IV EMULSION 100 ML 21.06 MG IV CONT (04:19)
[2024-03-26] MEDS: INSULIN ASPART (*BKC) 100 UNITS/ML SUB-Q ×5 (04:21→19:41)
[2024-03-26] MEDS: METOCLOPRAMIDE HCL 10 MG TABLET FEED TUBE ×2 (04:55→11:37)
[2024-03-26] MEDS: CENTRAL LINE FLUSH 10 ML IV PUSH ×3 (04:56→20:48)
[2024-03-26 05:01] LABS: Hematocrit 29.7 % (42.0-52.0); Hemoglobin 8.8 g/dL (14.0-18.0); Mean Corpuscular HGB Conc 29.6 g/dl (32-36); Mean Corpuscular Volume 94.6 fl (80-100); Mean Platelet Volume 11.8 fl (7.4-10.4); Platelet Count Result 319 k/mm3 (150-375); Red Blood Count 3.14 M/mm3 (4.6-6.20); Red Cell Distribution Width 17.8 % (11.5-14.5)
[2024-03-26 05:45] LABS: Alanine Aminotransferase 86 U/L (6-50); Albumin Level 3.3 g/dL (3.5-5.1); Alkaline Phosphatase 129 U/L (38-126); Anion Gap 6 mmol/L (4-12); Aspartate Amino Transferase 106 U/L (17-59); Bilirubin,Total 0.4 mg/dL (0.2-1.3); Blood Urea Nitrogen 94 mg/dL (9-20); Calcium 8.4 mg/dL (8.4-10.2); Carbon Dioxide 30 mmol/L (22-30); Chloride 106 mmol/L (98-107); Estimated CRCL calculation 51 ml/min; Estimated Glomerular Filt Rate 41; Glucose 352 mg/dL (65-110); Magnesium 2.4 mg/dL (1.6-2.3); Potassium 3.7 mmol/L (3.4-5.0); Sodium 142 mmol/L (137-145); Triglycerides 94 mg/dL (<150)
[2024-03-26 05:47] LABS: Alveolar/Arterial O2 Gradient 116.8 mmHg; Base Excess ABG 2.8 mEq/l (+/-2.0); Carboxyhemoglobin 0.5 % THb (0-2.0); Device VENTILATOR; Fractional Inspired Oxygen 35 %; HCO3 ABG 27.4 mEq/l (22.0-26.0); Methemoglobin ABG 0.3 %THb (0-1.5); Modified Allen's Test Pass; Oxygen Content ABG 13.6 %vol (16.0-22.0); Oxygen Saturation ABG 96.4 % (95.0-100.0); PCO2 ABG 42.5 mmHg (35.0-45.0); PO2 ABG 83.3 mmHg (80.0-100.0); PO2 FiO2 Ratio Arterial Blood 2.38 %; Reduced Hemoglobin 4.2 %THb (0-5.0); Site Drawn LEFT RADIAL; Total Hemoglobin 10.1 g/dL (12.0-18.0); pH ABG 7.428 (7.350-7.450)
[2024-03-26 05:48] LABS: Arterial Blood Gas PEEP 10 cmH2O; Arterial Blood Gas Tidal Volume 420 ml; Arterial Blood Gas Vent Mode CMV; Arterial Blood Gas Ventilator rate 16 /MIN
[2024-03-26 07:44] LABS: Glucose Point of Care 317 mg/dl (65-105)
[2024-03-26] MEDS: PROPOFOL IV EMULSION 100 ML 14.04 MG IV CONT (08:45)
[2024-03-26] MEDS: INSULIN GLARGINE (*BKC) 100 UNITS/ML 20 UNITS SUB-Q (08:46)
[2024-03-26] MEDS: INSULIN GLARGINE (*BKC) 100 UNITS/ML 60 UNITS SUB-Q ×3 (08:46→20:02)
[2024-03-26] MEDS: METOPROLOL TARTRATE 25 MG TABLET PO ×2 (08:51→19:42)
[2024-03-26] MEDS: ASPIRIN 81 MG CHEWABLE TABLET PO (08:53)
[2024-03-26] MEDS: AMIODARONE HCL 200 MG TABLET 400 MG PO (08:53)
[2024-03-26] MEDS: ENOXAPARIN 40 MG/0.4 ML SYRINGE SUB-Q (08:53)
[2024-03-26] MEDS: CLOPIDOGREL BISULFATE 75 MG TABLET PO (08:53)
[2024-03-26] MEDS: ROSUVASTATIN 10 MG TABLET 20 MG PO (08:54)
[2024-03-26] MEDS: PANTOPRAZOLE SODIUM IV 40 MG VIAL IV PUSH ×2 (08:54→20:47)
[2024-03-26] MEDS: MINERAL OIL/WHITE PETROLATUM OINTMENT 1 APPLIC EACH EYE ×2 (08:54→20:47)
[2024-03-26] MEDS: polyethylene glycoL 3350 17 GM POWD.PACK PO (08:54)
[2024-03-26] MEDS: LINEZOLID 600 MG/300 ML 600 MG/300 ML SOLN 300 MG IVPB ×2 (08:54→20:47)
[2024-03-26] MEDS: TOLNAFTATE 1% POWDER 45 GM BTL 1 APPLIC TOPICAL ×2 (08:54→20:47)
[2024-03-26] MEDS: FUROSEMIDE INJ 40 MG/4 ML VIAL IV PUSH (08:55)
--- NOTE | 2024-03-26 10:07 | P.PNNP_ITS ---
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(?) * cannot r/o an element of CKD progression * second insult likely due to * fluctuating hypotension/hemodynamic instability * fluctuating H/H * Afib with RVR * contrast (cardiac cath + CT scan) * UTI * evaluation to date noted: * urine eosinophil negative * urine electrolytes prerenal * mild proteinuria * CPK normal * renal ultrasound c/w CKD * creatinine is actually lower than his baseline * probably because of his weakness and bed-bound status, his creatinine turned over is lowe * continue follow trend of repeat labs and UOP (2) Chronic kidney disease, stage 3: Code(s): N18.3 - Chronic kidney disease, stage 3 (moderate) Status: Chronic Assessment and Plan: * baseline creatinine seems to run ~ 1.4 - 1.7mg/dl * this would cause him to fluctuate between CKD stage 3A and stage 3B * likely secondary to hypertension, diabetes, severe vascular disease (CAD + PAD + hyperlipidemia), and age (3) Acute respiratory failure: Qualifiers: Respiratory failure complication: unspecified whether with hypoxia or hypercapnia Qualified Code(s): J96.00 - Acute respiratory failure, unspecified whether with hypoxia or hypercapnia Code(s): J96.00 - Acute respiratory failure, unspecified whether with hypoxia or hypercapnia Status: Acute Assessment and Plan: * suspect multifactorial etiology: * large left pleural effusion/ whiteout of left hemithorax * hypoxia * AMS/encephalopathy * Weakness * renal failure * intubated on 03/15/24; extubated earlier on 03/21 but then quickly re-intubated * back off on diuretics due to rising BUN (?) * continue supportive care (4) Pleural effusion, left: Code(s): J90 - Pleural effusion, not elsewhere classified Status: Acute Assessment and Plan: * as noted by recent CXR * contributing component to #4 * s/p left thoracentesis by IR on 03/15/24 * pleural fluid studies/analysis noted * on antibiotics as above (5) ST elevation (STEMI) myocardial infarction: Code(s): I21.3 - ST elevation (STEMI) myocardial infarction of unspecified site Status: Acute Assessment and Plan: * admission EKG showed inferior lateral ST-elevation OK * s/p cardiac cath with PTCA/PCI with KENYA x 1 to mid RCA which was 90% blocked * no LV gram was performed due to renal dysfunction * Cardiology following * Echo results noted * remains on DAPT and statin (6) Hypernatremia: Code(s): E87.0 - Hyperosmolality and hypernatremia Status: Acute Assessment and Plan: * due to free water deficit and free water loss from diuretics * continue free water tube flushes with titration as needed * suspect as renal function improves, this should improve as well (7) Atrial fibrillation: Code(s): I48.91 - Unspecified atrial fibrillation Status: Acute Assessment and Plan: * on amiodarone * s/p cardioversion on 03/11 * on anticoagulation * Cardiology following (8) Anemia: Code(s): D64.9 - Anemia, unspecified Status: Acute Assessment and Plan: * due in part to CKD and acute illness * follow trend of H/H * on Epo
--- NOTE | 2024-03-26 10:07 | PM.PNNEP ---
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(?) cannot r/o an element of CKD progression second insult likely due to fluctuating hypotension/hemodynamic instability fluctuating H/H Afib with RVR contrast (cardiac cath + CT scan) UTI evaluation to date noted: urine eosinophil negative urine electrolytes prerenal mild proteinuria CPK normal renal ultrasound c/w CKD creatinine is actually lower than his baseline probably because of his weakness and bed-bound status, his creatinine turned over is lowe continue follow trend of repeat labs and UOP (2) Chronic kidney disease, stage 3: Code(s): N18.3 - Chronic kidney disease, stage 3 (moderate) Status: Chronic Assessment and Plan: baseline creatinine seems to run ~ 1.4 - 1.7mg/dl this would cause him to fluctuate between CKD stage 3A and stage 3B likely secondary to hypertension, diabetes, severe vascular disease (CAD + PAD + hyperlipidemia), and age (3) Acute respiratory failure: Qualifiers: Respiratory failure complication: unspecified whether with hypoxia or hypercapnia Qualified Code(s): J96.00 - Acute respiratory failure, unspecified whether with hypoxia or hypercapnia Code(s): J96.00 - Acute respiratory failure, unspecified whether with hypoxia or hypercapnia Status: Acute Assessment and Plan: suspect multifactorial etiology: large left pleural effusion/ whiteout of left hemithorax hypoxia AMS/encephalopathy Weakness renal failure intubated on 03/15/24; extubated earlier on 03/21 but then quickly re-intubated back off on diuretics due to rising BUN (?) continue supportive care (4) Pleural effusion, left: Code(s): J90 - Pleural effusion, not elsewhere classified Status: Acute Assessment and Plan: as noted by recent CXR contributing component to #4 s/p left thoracentesis by IR on 03/15/24 pleural fluid studies/analysis noted on antibiotics as above (5) ST elevation (STEMI) myocardial infarction: Code(s): I21.3 - ST elevation (STEMI) myocardial infarction of unspecified site Status: Acute Assessment and Plan: admission EKG showed inferior lateral ST-elevation [place] s/p cardiac cath with PTCA/PCI with KENYA x 1 to mid RCA which was 90% blocked no LV gram was performed due to renal dysfunction Cardiology following Echo results noted remains on DAPT and statin (6) Hypernatremia: Code(s): E87.0 - Hyperosmolality and hypernatremia Status: Acute Assessment and Plan: due to free water deficit and free water loss from diuretics continue free water tube flushes with titration as needed suspect as renal function improves, this should improve as well (7) Atrial fibrillation: Code(s): I48.91 - Unspecified atrial fibrillation Status: Acute Assessment and Plan: on amiodarone s/p cardioversion on 03/11 on anticoagulation Cardiology following (8) Anemia: Code(s): D64.9 - Anemia, unspecified Status: Acute Assessment and Plan: due in part to CKD and acute illness follow trend of H/H on Epogen (9) Insulin dependent type 2 diabetes mellitus: Code(s): E11.9 - Type 2 diabetes mellitus without complications; Z79.4 - shelter (current) use of insulin Status: Acute Assessment and Plan: follow accu-cheks 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 Subjective Date/time seen: 03/26/24 10:07 Interval history: Follow-up for acute kidney injury/acute renal failure on chronic kidney disease. No real significant change noted at this time -- remains intubated/
[2024-03-26 11:32] LABS: Glucose Point of Care 392 mg/dl (65-105)
[2024-03-26] MEDS: levoFLOXacin 750 MG/D5W 150 ML 750 MG/150 ML BAG 100 MG IVPB (11:37)
--- NOTE | 2024-03-26 11:54 | PCNFU ---
Addendum entered by Christina Noriega, RD, LDN 03/26/24 12:29: Spoke with MD regarding flush amount. Tube feeding is not as concentrated. MD orders for flush at 50 ml q 6 hours. Original Note: Nutrition Follow-Up Complete: Increased protein energy needs related to mechanical ventilation as evidenced by NPO, need for full tube feeding Goal: Meet estimated protein energy needs Patient is progressing towards goal. We will continue current goal. Pt current nutrition is Nepro at 45 ml/hr. Nutrition recommendation: Glucerna 1.2 at 70 ml/hr. Last recorded weight is 116 kg, down from 127.8 kg on admit. Bowel Motility: +BM reported 03/25 Labs Reviewed:Glu 352, Cr 1.7,BUN 94, GFR 41, Alb 3.3,Hct 29.7,Hgb 8.8 Meds Noted:Crestor, Lantus, Senokot, Vancomycin, Protonix, Reglan, Lasix. Skin: Deep Tissue-Coccyx Additional Notes: Patient remains on mechanical vent. Discussions during rounds in regards to elevated blood sugar levels. Plans for tube feeding formula change to Glucerna 1.2 at 70 ml/hr. Protein Modulars will continue BID. Total Nutrition: 2008 kcals/132 gm protein/1240 ml water. Agree with diet orders. Monitoring tube feeding tolerance, weights, labs, output, plan of care Follow in rounds, reassess Monday and Monday per policy
--- NOTE | 2024-03-26 12:12 | WPDINTPN ---
Progress Note: A&P Assessment and Plan (1) Acute respiratory failure: Qualifiers: Respiratory failure complication: unspecified whether with hypoxia or hypercapnia Qualified Code(s): J96.00 - Acute respiratory failure, unspecified whether with hypoxia or hypercapnia Code(s): J96.00 - Acute respiratory failure, unspecified whether with hypoxia or hypercapnia Status: Acute Assessment and Plan: ?Acute respiratory failure likely related to large left pleural effusion, hypoxia, encephalopathy, mottling, requiring intubation on 03/15/24. 03/18: Pleural effusion improving clinically and radiographically Microbiology studies: -03/16 Blood cx: no growth to date -03/16 Sputum cx: MRSA growth -03/16 Urine cx no growth -03/15 Left Pleural fluid: no organisms seen, pending cultures and cytology -03/18 Right pleural fluid: no organisms seen. Pathology report without malignancy, pending cytology -03/21: failed extubation and emergently reintubated after desaturating. Follow up chest CT without new cardiopulmonary disease changes, however possible cholecystitis. Received IV methylprednisone after reintubation for any potential airway edema. -Continue Propofol infusion for sedation -Sedation goal RASS of 0 to -2, with daily sedation vacation -Continue CMV mode of ventilation, PEEP 10, FiO2 35% -ABG reviewed.? Vent settings reviewed -continue bronchodilators -responding well to diuretics, continue Lasix 40 mg IV q.a.m. -completed 7 day course of vancomycin, aztreonam -Completed 5 day course of Flagyl -03/25: Patient with fevers, elevated WBC count, 03/16/2024: Sputum cultures grew MRSA, patient was started on linezolid -03/26: Added Levaquin will continue linezolid - 03/24 failed weaning trial yesterday as patient developed respiratory distress with increased work of breathing on pressure support after some time. Will attempt a weaning trial again today - 03/25 decrease tidal volume to 420.? Will re-attempt weaning trial again today.? Continue diuretics -03/26: Placed on ASV mode of ventilation this patient was tachypneic and dyssynchronous with the ventilator 03/16/2024: CT chest/Abdomen/Pelvis non contrast IMPRESSION: 1. Lines and tubes in expected position. 2. Persistent consolidation in the left mid to lower lung zone correspond to a small left pleural effusion and associated atelectasis on prior CT. Superimposed pneumonia not excludable. 3. Increasing pulmonary vascular congestion with indistinct interstitial and hazy airspace opacity right mid to lower lung zone likely combination of mild pulmonary edema or pneumonia superimposed over a small to moderate-sized right pleural effusion which is much better appreciated on prior CT. 4. Large cardiac silhouette on prior CT correspond to a large pericardial effusion (2) Pleural effusion, left: Code(s): J90 - Pleural effusion, not elsewhere classified Status: Acute Assessment and Plan: Large left pleural effusion -03/15:? Left thoracentesis with drainage of 500 mL of yellowish fluid 03/18 repeat thoracentesis on the left 550 mL fluid was removed -pleural fluid labs are pending -pleural fluid Gram stain did not show any organisms, pleural fluid culture no growth so far -antibiotics as above -03/22: Chest CT from 03/21 reviewed, persistent bilateral pleural effusions, although mild in size. (3) Pericardial effusion: Code(s): I31.39 - Other pericardial effusion (noninflammatory) Status: Acute Assessment and Plan: 03/16: CT chest showed large pericardial effusion, which was also seen on the CT CT scan of the chest on 03/07/2024 -cardiology is aware, no tamponade physiology at this time as blood pressures are stable -03/22: Repeat ECHO results reviewed ,small-moderate size pericardial effusion, not enough to cause hemodynamic instability. Will continue to monitor Date of Service: 03/21/24 Procedure(s): CA echo limited Summary ? 1. Normal left ventricular size and systo
--- NOTE | 2024-03-26 12:28 | PM.PNCARD ---
Progress Note: A&P Assessment and Plan (1) ST elevation (STEMI) myocardial infarction: Code(s): I21.3 - ST elevation (STEMI) myocardial infarction of unspecified site Status: Acute Assessment and Plan: History of multivessel coronary disease admitted to the hospital on 03/04/[address] elevation [place]. Underwent successful percutaneous revascularization of his mid circumflex which was technically challenging because of his extensive vascular disease and difficult vascular access. Procedure was ultimately done with a good angiographic result. Previous stented vessels in his LAD and right mid right coronary were remaining patent. He has extensive peripheral vascular disease and has undergone right lower extremity amputation. Continue clopidogrel 75 mg daily, aspirin 81 mg daily, high intensity statin (2) Atrial fibrillation with RVR: Code(s): I48.91 - Unspecified atrial fibrillation Status: Acute Assessment and Plan: S/p DCCV earlier during his hospitalization. Not on anticoagulation because of anemia requiring transfusion earlier during hospitalization. (3) Acute renal failure superimposed on stage 3 chronic kidney disease: Code(s): N17.9 - Acute kidney failure, unspecified; N18.30 - Chronic kidney disease, stage 3 unspecified Status: Acute Assessment and Plan: Multifactorial secondary to acute [place], hypotension, contrast exposure. (4) Essential (primary) hypertension: Code(s): I10 - Essential (primary) hypertension Status: Chronic Assessment and Plan: Stable (5) Insulin dependent type 2 diabetes mellitus: Code(s): E11.9 - Type 2 diabetes mellitus without complications; Z79.4 - medical terminologist (current) use of insulin Status: Acute Assessment and Plan: Management per hospitalist service (6) Peripheral arterial disease: Code(s): I73.9 - Peripheral vascular disease, unspecified Status: Acute Assessment and Plan: On ASA, plavix, statin (7) Dyslipidemia: Code(s): E78.5 - Hyperlipidemia, unspecified Status: Acute Assessment and Plan: Continue high intensity statin (8) CHF (congestive heart failure): Code(s): I50.9 - Heart failure, unspecified Status: Acute Assessment and Plan: Stable at this point Plan Recommendations and plan discussed with Chief Digital Media Officer. Subjective Date/time seen: 03/26/24 12:28 Interval history: Follow-up visit in this 63-year-old man with diffuse coronary and peripheral arterial disease. Presented to the hospital on 03/04/2024 with some neck pain and altered mental status. STEMI was declared because of inferolateral ST segment elevation. High-grade stenosis in the trunk of the circumflex was identified and treated with PCI as detailed in the catheterization lab report. Previous LAD and right coronary stents were patent. Patient remains hospitalized was having difficulty with recurrence of atrial fibrillation last evening. This was a accompanied by hypotension requiring transfer back to the ICU. Likely this is a combination of his atrial fib other medications that were on board for hypertension. He is receiving intravenous amiodarone at this time and persisting atrial fib with heart rate 100-110. He is resting relatively comfortably upon awakening he offers no specific complaints. Date of service 03/09/2024: He was not complaining of chest pain earlier today is reported but not complaints of significant reproducible chest pain worse with deep breathing, movement, coughing or any palpation. Morphine helps. BP variable, Khanh-Synephrine held secondary to hypertension. Date of service 03/10/2024: Patient is sleepy but arousable. Feels better today. No chest pain. Breathing stable. He is off Khanh-Synephrine. BP much more stable. Remains tachycardic in AFib with RVR heart rates 120s on average. Date of service 03/11/2024: The patient is hemodynamically stabl
[2024-03-26 15:44] LABS: Glucose Point of Care 357 mg/dl (65-105)
[2024-03-26] MEDS: PROPOFOL IV EMULSION 100 ML 10.53 MG IV CONT (15:47)
[2024-03-26 19:38] LABS: Glucose Point of Care 333 mg/dl (65-105)
[2024-03-26] MEDS: ENOXAPARIN 60 MG/0.6 ML SYRINGE 50 MG SUB-Q (19:41)
[2024-03-27] VITALS (33 sets, daily range): BP systolic 116–175; BP diastolic 46–83; PULSE 72–137; RESP 16–21; TEMP 37.7–38; O2SAT 94–99
[2024-03-27 00:08] LABS: Glucose Point of Care 323 mg/dl (65-105)
[2024-03-27] MEDS: INSULIN ASPART (*BKC) 100 UNITS/ML SUB-Q ×6 (00:10→19:48)
[2024-03-27] MEDS: PROPOFOL IV EMULSION 100 ML 7.02 MG IV CONT ×2 (00:11→13:36)
[2024-03-27 05:18] LABS: Glucose Point of Care 282 mg/dl (65-105)
[2024-03-27] MEDS: CENTRAL LINE FLUSH 10 ML IV PUSH ×3 (05:28→20:15)
[2024-03-27 05:38] LABS: Hematocrit 29.6 % (42.0-52.0); Hemoglobin 8.9 g/dL (14.0-18.0); Mean Corpuscular HGB Conc 30.1 g/dl (32-36); Mean Corpuscular Hemoglobin 28.2 pg (26-34); Mean Corpuscular Volume 93.7 fl (80-100); Mean Platelet Volume 12.2 fl (7.4-10.4); Platelet Count Result 332 k/mm3 (150-375); Red Blood Count 3.16 M/mm3 (4.6-6.20); Red Cell Distribution Width 17.5 % (11.5-14.5); White Blood Count 23.8 K/mm3 (4.5-10.0)
[2024-03-27 05:50] LABS: Alanine Aminotransferase 161 U/L (6-50); Albumin Level 3.3 g/dL (3.5-5.1); Alkaline Phosphatase 138 U/L (38-126); Anion Gap 8 mmol/L (4-12); Aspartate Amino Transferase 264 U/L (17-59); Bilirubin,Total 0.5 mg/dL (0.2-1.3); Blood Urea Nitrogen 100 mg/dL (9-20); Calcium 8.3 mg/dL (8.4-10.2); Carbon Dioxide 29 mmol/L (22-30); Chloride 108 mmol/L (98-107); Estimated CRCL calculation 50 ml/min; Estimated Glomerular Filt Rate 41; Glucose 321 mg/dL (65-110); Magnesium 2.5 mg/dL (1.6-2.3); Phosphorus 4.4 mg/dL (2.5-4.5); Potassium 3.9 mmol/L (3.4-5.0); Sodium 145 mmol/L (137-145)
[2024-03-27 06:14] LABS: Alveolar/Arterial O2 Gradient 96.4 mmHg; Base Excess ABG 0.8 mEq/l (+/-2.0); Fractional Inspired Oxygen 30 %; HCO3 ABG 23.1 mEq/l (22.0-26.0); Oxygen Content ABG 13.5 %vol (16.0-22.0); Oxygen Saturation ABG 97.3 % (95.0-100.0); PCO2 ABG 28.8 mmHg (35.0-45.0); PO2 ABG 83.7 mmHg (80.0-100.0); PO2 FiO2 Ratio Arterial Blood 2.79 %; Total Hemoglobin 9.9 g/dL (12.0-18.0)
[2024-03-27 06:15] LABS: Arterial Blood Gas Vent Mode ASV; Device VENTILATOR; Modified Allen's Test Pass; Site Drawn RIGHT RADIAL; pH ABG 7.522 (7.350-7.450)
[2024-03-27 06:16] LABS: Arterial Blood Gas Minute Volume 7.3 LPM; Arterial Blood Gas PEEP 10 cmH2O
--- NOTE | 2024-03-27 07:58 | ECG_ITS ---
SEE SCANNED COPY FOR CONFIRMED REPORT MTDD
[2024-03-27] MEDS: METOPROLOL TARTRATE INJ 5 MG/5 ML VIAL IV PUSH (08:10)
[2024-03-27 08:37] LABS: Glucose Point of Care 308 mg/dl (65-105)
--- NOTE | 2024-03-27 09:19 | PM.PNCARD ---
Progress Note: A&P Assessment and Plan (1) ST elevation (STEMI) myocardial infarction: Code(s): I21.3 - ST elevation (STEMI) myocardial infarction of unspecified site Status: Acute Assessment and Plan: History of multivessel coronary disease admitted to the hospital on 03/04/[address] elevation [place]. Underwent successful percutaneous revascularization of his mid circumflex which was technically challenging because of his extensive vascular disease and difficult vascular access. Procedure was ultimately done with a good angiographic result. Previous stented vessels in his LAD and right mid right coronary were remaining patent. He has extensive peripheral vascular disease and has undergone right lower extremity amputation. Continue Clopidogrel 75 mg daily, Aspirin 81 mg daily, high intensity statin (2) Acute respiratory failure: Qualifiers: Respiratory failure complication: unspecified whether with hypoxia or hypercapnia Qualified Code(s): J96.00 - Acute respiratory failure, unspecified whether with hypoxia or hypercapnia Code(s): J96.00 - Acute respiratory failure, unspecified whether with hypoxia or hypercapnia Status: Acute Assessment and Plan: On mechanical ventilation, but he cannot be weaned from the vent. Given prolonged intubation, ENT and GI have been consulted for trach and peg. (3) Atrial fibrillation with RVR: Code(s): I48.91 - Unspecified atrial fibrillation Status: Acute Assessment and Plan: S/p DCCV earlier during his hospitalization. Not on anticoagulation because of anemia requiring transfusion earlier during hospitalization. Continue Amiodarone 400mg daily. Given episode of atrial flutter 03/27, will increase his Metoprolol to 50mg BID. (4) Acute renal failure superimposed on stage 3 chronic kidney disease: Code(s): N17.9 - Acute kidney failure, unspecified; N18.30 - Chronic kidney disease, stage 3 unspecified Status: Acute Assessment and Plan: Multifactorial secondary to acute [place], hypotension, contrast exposure. (5) Essential (primary) hypertension: Code(s): I10 - Essential (primary) hypertension Status: Chronic Assessment and Plan: Stable (6) Insulin dependent type 2 diabetes mellitus: Code(s): E11.9 - Type 2 diabetes mellitus without complications; Z79.4 - terminal computer operator (current) use of insulin Status: Acute Assessment and Plan: Management per hospitalist service (7) Peripheral arterial disease: Code(s): I73.9 - Peripheral vascular disease, unspecified Status: Acute Assessment and Plan: On ASA, Plavix, statin (8) Dyslipidemia: Code(s): E78.5 - Hyperlipidemia, unspecified Status: Acute Assessment and Plan: Continue high intensity statin (9) CHF (congestive heart failure): Code(s): I50.9 - Heart failure, unspecified Status: Acute Assessment and Plan: Stable at this point Plan Recommendations and plan discussed with Seafood And Service Meat Manager. Subjective Date/time seen: 03/27/24 09:19 Interval history: Follow-up visit in this 63-year-old man with diffuse coronary and peripheral arterial disease. Presented to the hospital on 03/04/2024 with some neck pain and altered mental status. STEMI was declared because of inferolateral ST segment elevation. High-grade stenosis in the trunk of the circumflex was identified and treated with PCI as detailed in the catheterization lab report. Previous LAD and right coronary stents were patent. Patient remains hospitalized was having difficulty with recurrence of atrial fibrillation last evening. This was a accompanied by hypotension requiring transfer back to the ICU. Likely this is a combination of his atrial fib other medications that were on board for hypertension. He is receiving intravenous amiodarone at this time and persisting atrial fib with heart rate 100-110. He is resting relatively comf
[2024-03-27] MEDS: INSULIN GLARGINE (*BKC) 100 UNITS/ML 70 UNITS SUB-Q ×2 (09:22→19:49)
[2024-03-27] MEDS: CLOPIDOGREL BISULFATE 75 MG TABLET PO (09:33)
[2024-03-27] MEDS: ASPIRIN 81 MG CHEWABLE TABLET PO (09:33)
[2024-03-27] MEDS: AMIODARONE HCL 200 MG TABLET 400 MG PO (09:33)
[2024-03-27] MEDS: PANTOPRAZOLE SODIUM IV 40 MG VIAL IV PUSH ×2 (09:37→20:14)
[2024-03-27] MEDS: TOLNAFTATE 1% POWDER 45 GM BTL 1 APPLIC TOPICAL ×2 (09:38→20:14)
[2024-03-27] MEDS: LINEZOLID 600 MG/300 ML 600 MG/300 ML SOLN 300 MG IVPB ×2 (09:38→20:11)
[2024-03-27] MEDS: MINERAL OIL/WHITE PETROLATUM OINTMENT 1 APPLIC EACH EYE ×2 (09:39→20:14)
[2024-03-27] MEDS: ENOXAPARIN 60 MG/0.6 ML SYRINGE 50 MG SUB-Q ×2 (09:39→20:14)
[2024-03-27] MEDS: EPOETIN ALFA-EPBX 10,000 UNITS/ML VIAL 10000 UNITS SUB-Q (09:40)
--- NOTE | 2024-03-27 11:04 | PCFNICU ---
Addendum entered by Christina Noriega RD, LDN 03/27/24 11:14: Protein Modular being given of Prosource BID for additional 160 kcal and 40 gm protein. Original Note: ICU Rounding Note: Pt current nutrition is Glucerna 1.2 at 70 ml/hr. Last recorded weight is 108.5 kg. weight shifted down 16 ibs in 1 day. unsure of bed scale. Bowel Motility: +BM reported 03/27 Labs Reviewed: Glu 321, BUN 100, Cr 1.7, GFR 41 Meds Noted: Senokot, Lantus, Miralax, Vancomycin, Crestor,Propofol 10 rjpc=127 kcals. Skin: Deep Tissue-Coccyx Additional Notes: Patient remains on mechanical vent. Tube feedings are being tolerated of Glucerna 1.2 at 70 ml/hr. Flush 30 ml q 4 hours. Discussions regarding PEG/Trach with discharge plans for LTAC. Agree with diet orders at this time. Following daily in ICU rounds. Monitoring tube feeding tolerance, weights, labs, output, plan of care Follow in rounds, reassess Monday and Monday per policy.
[2024-03-27] MEDS: AZTREONAM 2 GM in SODIUM CHLORIDE 0.9% IV 100 ML 200 ML IVPB ×2 (11:51→20:15)
[2024-03-27 12:28] LABS: Glucose Point of Care 320 mg/dl (65-105)
--- NOTE | 2024-03-27 13:09 | WPDINTPN ---
Progress Note: A&P Assessment and Plan (1) Acute respiratory failure: Qualifiers: Respiratory failure complication: unspecified whether with hypoxia or hypercapnia Qualified Code(s): J96.00 - Acute respiratory failure, unspecified whether with hypoxia or hypercapnia Code(s): J96.00 - Acute respiratory failure, unspecified whether with hypoxia or hypercapnia Status: Acute Assessment and Plan: ?Acute respiratory failure likely related to large left pleural effusion, hypoxia, encephalopathy, mottling, requiring intubation on 03/15/24. 03/18: Pleural effusion improving clinically and radiographically Microbiology studies: -03/16 Blood cx: no growth to date -03/16 Sputum cx: MRSA growth -03/16 Urine cx no growth -03/15 Left Pleural fluid: no organisms seen, pending cultures and cytology -03/18 Right pleural fluid: no organisms seen. Pathology report without malignancy, pending cytology -03/21: failed extubation and emergently reintubated after desaturating. Follow up chest CT without new cardiopulmonary disease changes, however possible cholecystitis. Received IV methylprednisone after reintubation for any potential airway edema. -Continue Propofol infusion for sedation -Sedation goal RASS of 0 to -2, with daily sedation vacation -Continue CMV mode of ventilation, PEEP 10, FiO2 35% -ABG reviewed.? Vent settings reviewed -continue bronchodilators -responding well to diuretics, continue Lasix 40 mg IV q.a.m. -completed 7 day course of vancomycin, aztreonam -Completed 5 day course of Flagyl -03/25: Patient with fevers, elevated WBC count, 03/16/2024: Sputum cultures grew MRSA, patient was started on linezolid -03/26: Added Levaquin will continue linezolid 03/27: Worsening WBC count, will discontinue Levaquin and aztreonam. Continue linezolid - 03/24 failed weaning trial yesterday as patient developed respiratory distress with increased work of breathing on pressure support after some time. Will attempt a weaning trial again today - 03/25 decrease tidal volume to 420.? Will re-attempt weaning trial again today.? Continue diuretics -03/26: Placed on ASV mode of ventilation this patient was tachypneic and dyssynchronous with the ventilator 03/27: Tolerating ASV mode, will decrease to 90% minute ventilation, as ABGs reviewed, and patient has respiratory alkalosis Sister has agreed for tracheostomy and PEG tube placement 03/16/2024: CT chest/Abdomen/Pelvis non contrast IMPRESSION: 1. Lines and tubes in expected position. 2. Persistent consolidation in the left mid to lower lung zone correspond to a small left pleural effusion and associated atelectasis on prior CT. Superimposed pneumonia not excludable. 3. Increasing pulmonary vascular congestion with indistinct interstitial and hazy airspace opacity right mid to lower lung zone likely combination of mild pulmonary edema or pneumonia superimposed over a small to moderate-sized right pleural effusion which is much better appreciated on prior CT. 4. Large cardiac silhouette on prior CT correspond to a large pericardial effusion (2) Pleural effusion, left: Code(s): J90 - Pleural effusion, not elsewhere classified Status: Acute Assessment and Plan: Large left pleural effusion -03/15:? Left thoracentesis with drainage of 500 mL of yellowish fluid 03/18 repeat thoracentesis on the left 550 mL fluid was removed -pleural fluid labs are pending -pleural fluid Gram stain did not show any organisms, pleural fluid culture no growth so far -antibiotics as above -03/22: Chest CT from 03/21 reviewed, persistent bilateral pleural effusions, although mild in size. (3) Pericardial effusion: Code(s): I31.39 - Other pericardial effusion (noninflammatory) Status: Acute Assessment and Plan: 03/16: CT chest showed large pericardial effusion, which was also seen on the CT CT scan of the chest on 03/07/2024 -cardiology is aware, no tamponade physiology at this time as blood pressure
[2024-03-27] MEDS: LABETALOL HCL INJ 100 MG/20 ML VIAL 20 MG IV PUSH (13:10)
[2024-03-27 13:45] LABS: Ammonia < 9 umol/L (9-30)
--- NOTE | 2024-03-27 14:55 | WPDGICN ---
Assessment and Plan Assessment and plan (1) Acute respiratory failure: Qualifiers: Respiratory failure complication: unspecified whether with hypoxia or hypercapnia Qualified Code(s): J96.00 - Acute respiratory failure, unspecified whether with hypoxia or hypercapnia Code(s): J96.00 - Acute respiratory failure, unspecified whether with hypoxia or hypercapnia Status: Acute Assessment and Plan: prolonged intubation and unable to wean family talked to stopper setter and agreeable to tracheostomy and PEG placement, we can not hold plavix since he got cardiac stents for acute FL recently (2) Encephalopathy: Code(s): G93.40 - Encephalopathy, unspecified Status: Acute (3) Atrial fibrillation with RVR: Code(s): I48.91 - Unspecified atrial fibrillation Status: Acute Assessment and Plan: by cardiology hold lovenox tomorrow (4) Acute renal failure superimposed on stage 3 chronic kidney disease: Code(s): N17.9 - Acute kidney failure, unspecified; N18.30 - Chronic kidney disease, stage 3 unspecified Status: Acute (5) ST elevation (STEMI) myocardial infarction: Code(s): I21.3 - ST elevation (STEMI) myocardial infarction of unspecified site Status: Acute Assessment and Plan: treated with stents, on plavix (6) Peripheral vascular disease: Code(s): I73.9 - Peripheral vascular disease, unspecified Status: Acute GI Consult Note Consult date/time: 03/27/24 14:55 Reason for consult: prolonged intubation after STEMI and respiratory failure, unable to wean HPI: Noel Rodriguez is a 63 year old male halfway patient with PAD, CAD and other multiple medical problems admitted to ICU 03/04/2024 after found to have ST elevation [place]. Underwent successful percutaneous revascularization of his mid circumflex which was technically challenging because of his extensive vascular disease and difficult vascular access.? Procedure was ultimately done with a good angiographic result.? Previous stented vessels in his LAD and right mid right coronary were remaining patent.?He has respiratory failure and was intubated trial of extubation but developed stridor and had to be intubated right back, also had anemia that required transfusion, pleural/pericardial effusion, acute on CKD, encephalopathy. Family finally decided that he will get trach/peg and eventually LTAC placement. He is still on plavix because recent stent, also Afib on lovenox and amiodarone. History obtained from records. Review of Systems Review of Systems: ROS unobtainable: Yes unobtainable due to endotracheal tube and unobtainable due to mental status PMFSH Past Medical History Medical History ADHD (attention deficit hyperactivity disorder) Cellulitis of both feet Chronic kidney disease, stage 3 Baseline creatinine between 1.5 and 1.60. Chronic pain syndrome On long-term opiates. Coronary artery disease With history of stents. Degenerative disc disease Diabetic foot infection Gangrene of toe of right foot GERD (gastroesophageal reflux disease) History of DVT of lower extremity Hospital discharge follow-up Hyperlipidemia Hypertension Insulin dependent type 2 diabetes mellitus Myocardial infarction Osteoarthritis Peripheral arterial disease Status post right lower extremity revascularization per Dr. Altman. Shortness of breath on exertion Tobacco abuse Surgical History Surgical History H/O cardiac catheterization History of left-sided carotid endarterectomy History of revascularization procedure of lower extremity Right lower extremity angioplasty and stent per Dr. Hurt. Hx of right BKA Family History Family History Father , age 91 CAD Acute myocardial infarction Mother , age 85 CVA Cerebrovascula
[2024-03-27 15:47] LABS: Glucose Point of Care 356 mg/dl (65-105)
--- NOTE | 2024-03-27 16:45 | P.PNNP_ITS ---
Progress Note: A&P Assessment and Plan (1) SIM (acute kidney injury): Code(s): N17.9 - Acute kidney failure, unspecified Status: Acute Assessment and Plan: * relatively stable if not close to baseline * suspect initial insult due to: * acute UT * concurrent ETHAN-I GRAB JACK MAN * prerenal factors(?) * cannot r/o an element of CKD progression * second insult likely due to * fluctuating hypotension/hemodynamic instability * fluctuating H/H * Afib with RVR * contrast (cardiac cath + CT scan) * UTI * evaluation to date noted: * urine eosinophil negative * urine electrolytes prerenal * mild proteinuria * CPK normal * renal ultrasound c/w CKD * creatinine is actually lower than his baseline * probably because of his weakness and bed-bound status, his creatinine turned over is lowe * continue follow trend of repeat labs and UOP (2) Chronic kidney disease, stage 3: Code(s): N18.3 - Chronic kidney disease, stage 3 (moderate) Status: Chronic Assessment and Plan: * baseline creatinine seems to run ~ 1.4 - 1.7mg/dl * this would cause him to fluctuate between CKD stage 3A and stage 3B * likely secondary to hypertension, diabetes, severe vascular disease (CAD + PAD + hyperlipidemia), and age (3) Acute respiratory failure: Qualifiers: Respiratory failure complication: unspecified whether with hypoxia or hypercapnia Qualified Code(s): J96.00 - Acute respiratory failure, unspecified whether with hypoxia or hypercapnia Code(s): J96.00 - Acute respiratory failure, unspecified whether with hypoxia or hypercapnia Status: Acute Assessment and Plan: * suspect multifactorial etiology: * large left pleural effusion/ whiteout of left hemithorax * hypoxia * AMS/encephalopathy * Weakness * renal failure * intubated on 03/15/24; extubated earlier on 03/21 but then quickly re-intubated * back off on diuretics due to rising BUN (?) * noted plan for tracheostomy and G-tube placement * continue supportive care (4) Pleural effusion, left: Code(s): J90 - Pleural effusion, not elsewhere classified Status: Acute Assessment and Plan: * as noted by recent CXR * contributing component to #4 * s/p left thoracentesis by IR on 03/15/24 * pleural fluid studies/analysis noted * on antibiotics as above (5) ST elevation (STEMI) myocardial infarction: Code(s): I21.3 - ST elevation (STEMI) myocardial infarction of unspecified site Status: Acute Assessment and Plan: * admission EKG showed inferior lateral ST-elevation [place] * s/p cardiac cath with PTCA/PCI with KENYA x 1 to mid RCA which was 90% blocked * no LV gram was performed due to renal dysfunction * Cardiology following * Echo results noted * remains on DAPT and statin (6) Hypernatremia: Code(s): E87.0 - Hyperosmolality and hypernatremia Status: Acute Assessment and Plan: * due to free water deficit and free water loss from diuretics * continue free water tube flushes with titration as needed * suspect as renal function improves, this should improve as well (7) Atrial fibrillation: Code(s): I48.91 - Unspecified atrial fibrillation Status: Acute Assessment and Plan: * on amiodarone * s/p cardioversion on 03/11 * on anticoagulation * Cardiology following (8) Anemia: Code(s): D64.9 - Anemia, unspecified Status: Acute Assessment and Plan: * due in part to CKD an
--- NOTE | 2024-03-27 16:45 | PM.PNNEP ---
Progress Note: A&P Assessment and Plan (1) SIM (acute kidney injury): Code(s): N17.9 - Acute kidney failure, unspecified Status: Acute Assessment and Plan: relatively stable if not close to baseline suspect initial insult due to: acute MD concurrent ETHAN-I MANAGER QUALITY SYSTEMS prerenal factors(?) cannot r/o an element of CKD progression second insult likely due to fluctuating hypotension/hemodynamic instability fluctuating H/H Afib with RVR contrast (cardiac cath + CT scan) UTI evaluation to date noted: urine eosinophil negative urine electrolytes prerenal mild proteinuria CPK normal renal ultrasound c/w CKD creatinine is actually lower than his baseline probably because of his weakness and bed-bound status, his creatinine turned over is lowe continue follow trend of repeat labs and UOP (2) Chronic kidney disease, stage 3: Code(s): N18.3 - Chronic kidney disease, stage 3 (moderate) Status: Chronic Assessment and Plan: baseline creatinine seems to run ~ 1.4 - 1.7mg/dl this would cause him to fluctuate between CKD stage 3A and stage 3B likely secondary to hypertension, diabetes, severe vascular disease (CAD + PAD + hyperlipidemia), and age (3) Acute respiratory failure: Qualifiers: Respiratory failure complication: unspecified whether with hypoxia or hypercapnia Qualified Code(s): J96.00 - Acute respiratory failure, unspecified whether with hypoxia or hypercapnia Code(s): J96.00 - Acute respiratory failure, unspecified whether with hypoxia or hypercapnia Status: Acute Assessment and Plan: suspect multifactorial etiology: large left pleural effusion/ whiteout of left hemithorax hypoxia AMS/encephalopathy Weakness renal failure intubated on 03/15/24; extubated earlier on 03/21 but then quickly re-intubated back off on diuretics due to rising BUN (?) noted plan for tracheostomy and G-tube placement continue supportive care (4) Pleural effusion, left: Code(s): J90 - Pleural effusion, not elsewhere classified Status: Acute Assessment and Plan: as noted by recent CXR contributing component to #4 s/p left thoracentesis by IR on 03/15/24 pleural fluid studies/analysis noted on antibiotics as above (5) ST elevation (STEMI) myocardial infarction: Code(s): I21.3 - ST elevation (STEMI) myocardial infarction of unspecified site Status: Acute Assessment and Plan: admission EKG showed inferior lateral ST-elevation MD s/p cardiac cath with PTCA/PCI with KENYA x 1 to mid RCA which was 90% blocked no LV gram was performed due to renal dysfunction Cardiology following Echo results noted remains on DAPT and statin (6) Hypernatremia: Code(s): E87.0 - Hyperosmolality and hypernatremia Status: Acute Assessment and Plan: due to free water deficit and free water loss from diuretics continue free water tube flushes with titration as needed suspect as renal function improves, this should improve as well (7) Atrial fibrillation: Code(s): I48.91 - Unspecified atrial fibrillation Status: Acute Assessment and Plan: on amiodarone s/p cardioversion on 03/11 on anticoagulation Cardiology following (8) Anemia: Code(s): D64.9 - Anemia, unspecified Status: Acute Assessment and Plan: due in part to CKD and acute illness follow trend of H/H on Epogen (9) Insulin dependent type 2 diabetes mellitus: Code(s): E11.9 - Type 2 diabetes mellitus without complications; Z79.4 - intermodal customer service (current) use of insulin Status: Acute Assessment and Plan: follow accu-cheks glycemic control per hospitalist/administrative assistant Will continue to follow. Subjective Date/time seen: 03/27/24 16:45 Interval history: Follow-up for acute kidney injury/acute renal failure on chronic kidney disease. Noted family dis
[2024-03-27 19:18] LABS: Glucose Point of Care 307 mg/dl (65-105)
[2024-03-27] MEDS: METOPROLOL TARTRATE 50 MG TAB PO (20:14)
[2024-03-27 23:58] LABS: Glucose Point of Care 216 mg/dl (65-105)
[2024-03-28] VITALS (33 sets, daily range): BP systolic 122–168; BP diastolic 45–55; PULSE 63–79; RESP 13–99; TEMP 37.1–38.1; O2SAT 17–100
[2024-03-28] MEDS: PROPOFOL IV EMULSION 100 ML 7.02 MG IV CONT ×2 (03:21→13:48)
[2024-03-28 04:51] LABS: Hematocrit 28.8 % (42.0-52.0); Hemoglobin 8.6 g/dL (14.0-18.0); Mean Corpuscular HGB Conc 29.9 g/dl (32-36); Mean Corpuscular Hemoglobin 27.8 pg (26-34); Mean Corpuscular Volume 93.2 fl (80-100); Mean Platelet Volume 12.5 fl (7.4-10.4); Platelet Count Result 343 k/mm3 (150-375); Red Blood Count 3.09 M/mm3 (4.6-6.20); Red Cell Distribution Width 17.8 % (11.5-14.5)
[2024-03-28 05:03] LABS: Alanine Aminotransferase 281 U/L (6-50); Albumin Level 3.2 g/dL (3.5-5.1); Alkaline Phosphatase 130 U/L (38-126); Anion Gap 5 mmol/L (4-12); Aspartate Amino Transferase 520 U/L (17-59); Bilirubin,Total 0.4 mg/dL (0.2-1.3); Blood Urea Nitrogen 101 mg/dL (9-20); Calcium 8.3 mg/dL (8.4-10.2); Carbon Dioxide 31 mmol/L (22-30); Chloride 109 mmol/L (98-107); Estimated CRCL calculation 47 ml/min; Estimated Glomerular Filt Rate 38; Glucose 98 mg/dL (65-110); INR 1.2; Magnesium 2.8 mg/dL (1.6-2.3); Phosphorus 4.6 mg/dL (2.5-4.5); Potassium 3.7 mmol/L (3.4-5.0); Prothrombin Time 16.2 Seconds (11.1-14.7); Sodium 145 mmol/L (137-145); Triglycerides 105 mg/dL (<150)
[2024-03-28 05:04] LABS: Partial Thromboplastin Time 38.7 Seconds (22.3-36.8)
[2024-03-28] MEDS: AZTREONAM 2 GM in SODIUM CHLORIDE 0.9% IV 100 ML IVPB ×3 (05:25→22:16)
[2024-03-28] MEDS: CENTRAL LINE FLUSH 10 ML IV PUSH ×3 (05:26→22:17)
[2024-03-28 06:00] LABS: Alveolar/Arterial O2 Gradient 101.4 mmHg; Base Excess ABG 2.7 mEq/l (+/-2.0); Carboxyhemoglobin 0.4 % THb (0-2.0); Fractional Inspired Oxygen 30 %; Methemoglobin ABG 0.3 %THb (0-1.5); Oxygen Saturation ABG 95.7 % (95.0-100.0); PCO2 ABG 34.7 mmHg (35.0-45.0); PO2 ABG 71.7 mmHg (80.0-100.0); PO2 FiO2 Ratio Arterial Blood 2.39 %; Reduced Hemoglobin 5.3 %THb (0-5.0); Total Hemoglobin 9.8 g/dL (12.0-18.0); pH ABG 7.492 (7.350-7.450)
[2024-03-28 06:01] LABS: Arterial Blood Gas Vent Mode ASV; Device VENTILATOR; Modified Allen's Test Pass; Site Drawn RIGHT RADIAL
[2024-03-28 06:02] LABS: Arterial Blood Gas PEEP 10 cmH2O
[2024-03-28 08:02] LABS: Glucose Point of Care 97 mg/dl (65-105)
[2024-03-28] MEDS: LINEZOLID 600 MG/300 ML 600 MG/300 ML SOLN 300 MG IVPB ×2 (08:42→22:15)
[2024-03-28] MEDS: AMIODARONE HCL 200 MG TABLET 400 MG PO (08:42)
[2024-03-28] MEDS: PANTOPRAZOLE SODIUM IV 40 MG VIAL IV PUSH ×2 (08:42→22:15)
[2024-03-28] MEDS: ASPIRIN 81 MG CHEWABLE TABLET PO (08:42)
[2024-03-28] MEDS: TOLNAFTATE 1% POWDER 45 GM BTL 1 APPLIC TOPICAL ×2 (08:43→22:17)
[2024-03-28] MEDS: CLOPIDOGREL BISULFATE 75 MG TABLET PO (08:43)
[2024-03-28] MEDS: METOPROLOL TARTRATE 50 MG TAB PO ×2 (08:43→22:17)
[2024-03-28] MEDS: MINERAL OIL/WHITE PETROLATUM OINTMENT 1 APPLIC EACH EYE ×2 (08:44→22:17)
--- NOTE | 2024-03-28 09:59 | PM.PNCARD ---
Progress Note: A&P Assessment and Plan (1) ST elevation (STEMI) myocardial infarction: Code(s): I21.3 - ST elevation (STEMI) myocardial infarction of unspecified site Status: Acute Assessment and Plan: History of multivessel coronary disease admitted to the hospital on 03/04/[address] elevation [place]. Underwent successful percutaneous revascularization of his mid circumflex which was technically challenging because of his extensive vascular disease and difficult vascular access. Procedure was ultimately done with a good angiographic result. Previous stented vessels in his LAD and right mid right coronary were remaining patent. He has extensive peripheral vascular disease and has undergone right lower extremity amputation. Continue Clopidogrel 75 mg daily, Aspirin 81 mg daily, high intensity statin (2) Acute respiratory failure: Qualifiers: Respiratory failure complication: unspecified whether with hypoxia or hypercapnia Qualified Code(s): J96.00 - Acute respiratory failure, unspecified whether with hypoxia or hypercapnia Code(s): J96.00 - Acute respiratory failure, unspecified whether with hypoxia or hypercapnia Status: Acute Assessment and Plan: On mechanical ventilation, but he cannot be weaned from the vent. Given prolonged intubation, ENT and GI have been consulted for trach and peg. (3) Atrial fibrillation with RVR: Code(s): I48.91 - Unspecified atrial fibrillation Status: Acute Assessment and Plan: S/p DCCV earlier during his hospitalization. Was not on anticoagulation earlier in hospitalization due to anemia requiring transfusion, however, has been receiving therapeutic Lovenox and tolerating thus far. Will eventually switch to NOAC prior to discharge. Continue Amiodarone and Metoprolol. (4) Acute renal failure superimposed on stage 3 chronic kidney disease: Code(s): N17.9 - Acute kidney failure, unspecified; N18.30 - Chronic kidney disease, stage 3 unspecified Status: Acute Assessment and Plan: Multifactorial secondary to acute [place], hypotension, contrast exposure. (5) Essential (primary) hypertension: Code(s): I10 - Essential (primary) hypertension Status: Chronic Assessment and Plan: Stable (6) Insulin dependent type 2 diabetes mellitus: Code(s): E11.9 - Type 2 diabetes mellitus without complications; Z79.4 - exterminator helper termite (current) use of insulin Status: Acute Assessment and Plan: Management per hospitalist service (7) Peripheral arterial disease: Code(s): I73.9 - Peripheral vascular disease, unspecified Status: Acute Assessment and Plan: On ASA, Plavix, statin (8) Dyslipidemia: Code(s): E78.5 - Hyperlipidemia, unspecified Status: Acute Assessment and Plan: Continue high intensity statin (9) CHF (congestive heart failure): Code(s): I50.9 - Heart failure, unspecified Status: Acute Assessment and Plan: Stable at this point Plan Recommendations and plan discussed with Remote Medical Coder. Subjective Date/time seen: 03/28/24 09:59 Interval history: Follow-up visit in this 63-year-old man with diffuse coronary and peripheral arterial disease. Presented to the hospital on 03/04/2024 with some neck pain and altered mental status. STEMI was declared because of inferolateral ST segment elevation. High-grade stenosis in the trunk of the circumflex was identified and treated with PCI as detailed in the catheterization lab report. Previous LAD and right coronary stents were patent. Patient remains hospitalized was having difficulty with recurrence of atrial fibrillation last evening. This was a accompanied by hypotension requiring transfer back to the ICU. Likely this is a combination of his atrial fib other medications that were on board for hypertension. He is receiving intravenous amiodarone at this time and persisting atrial fib with heart rat
--- NOTE | 2024-03-28 10:35 | PCFNICU ---
ICU Rounding Note: Pt current nutrition is Glucerna 1.2 @ 70 ml/h goal rate -ON HOLD for PEG placement. Nutrition recommendation: Order Timmy flushes BID tomorrow when able to feed through PEG Last recorded weight is 108.5 kg. Bowel Motility: +1 BM 03/28/24 Labs Reviewed: Hgb 8.6, Hct 28.8, Alb 3.2, BUN 101, Cre 1.8, MAG 2.8 Meds Noted: Reglan, protonix, Lasix, propofol @ 7.02 ml/h: 185 kcal Skin: Stage 3 pressure injury coccyx - not previously on Timmy Additional Notes: Pt is NPO for getting PEG placed today. Will do Timym flushes starting tomorrow for wound care. Trach placement planned for Monday and LTACH placement Following daily in ICU rounds. Monitoring tube feeding tolerance, weights, labs, output, plan of care Follow in rounds, reassess Monday and Monday per policy.
--- NOTE | 2024-03-28 10:41 | WPDINTPN ---
Progress Note: A&P Assessment and Plan (1) Acute respiratory failure: Qualifiers: Respiratory failure complication: unspecified whether with hypoxia or hypercapnia Qualified Code(s): J96.00 - Acute respiratory failure, unspecified whether with hypoxia or hypercapnia Code(s): J96.00 - Acute respiratory failure, unspecified whether with hypoxia or hypercapnia Status: Acute Assessment and Plan: ?Acute respiratory failure likely related to large left pleural effusion, hypoxia, encephalopathy, mottling, requiring intubation on 03/15/24. 03/18: Pleural effusion improving clinically and radiographically Microbiology studies: -03/16 Blood cx: no growth to date -03/16 Sputum cx: MRSA growth -03/16 Urine cx no growth -03/15 Left Pleural fluid: no organisms seen, pending cultures and cytology -03/18 Right pleural fluid: no organisms seen. Pathology report without malignancy, pending cytology -03/21: failed extubation and emergently reintubated after desaturating. Follow up chest CT without new cardiopulmonary disease changes, however possible cholecystitis. Received IV methylprednisone after reintubation for any potential airway edema. -Continue Propofol infusion for sedation -Sedation goal RASS of 0 to -2, with daily sedation vacation -Continue CMV mode of ventilation, PEEP 10, FiO2 35% -ABG reviewed.? Vent settings reviewed -continue bronchodilators -responding well to diuretics, continue Lasix 40 mg IV q.a.m. -completed 7 day course of vancomycin, aztreonam -Completed 5 day course of Flagyl -03/25: Patient with fevers, elevated WBC count, 03/16/2024: Sputum cultures grew MRSA, patient was started on linezolid -03/26: Added Levaquin will continue linezolid 03/27: Worsening WBC count, will discontinue Levaquin and aztreonam. Continue linezolid 03/28: Fever curve improved, leukocytosis improving - 03/24 failed weaning trial yesterday as patient developed respiratory distress with increased work of breathing on pressure support after some time. Will attempt a weaning trial again today - 03/25 decrease tidal volume to 420.? Will re-attempt weaning trial again today.? Continue diuretics -03/26: Placed on ASV mode of ventilation this patient was tachypneic and dyssynchronous with the ventilator 03/27: Tolerating ASV mode, will decrease to 90% minute ventilation, as ABGs reviewed, and patient has respiratory alkalosis 03/28: Patient placed on pressure support ventilation 10/20, tolerating well. Had to switch back to CMV mode due to PEG tube placement procedure. Will retry pressure support ventilation Sister has agreed for tracheostomy and PEG tube placement 03/28: Peg tube to be placed today, tracheostomy will be placed on 04/01/[address] Saenz 03/16/2024: CT chest/Abdomen/Pelvis non contrast IMPRESSION: 1. Lines and tubes in expected position. 2. Persistent consolidation in the left mid to lower lung zone correspond to a small left pleural effusion and associated atelectasis on prior CT. Superimposed pneumonia not excludable. 3. Increasing pulmonary vascular congestion with indistinct interstitial and hazy airspace opacity right mid to lower lung zone likely combination of mild pulmonary edema or pneumonia superimposed over a small to moderate-sized right pleural effusion which is much better appreciated on prior CT. 4. Large cardiac silhouette on prior CT correspond to a large pericardial effusion (2) Pleural effusion, left: Code(s): J90 - Pleural effusion, not elsewhere classified Status: Acute Assessment and Plan: Large left pleural effusion -03/15:? Left thoracentesis with drainage of 500 mL of yellowish fluid 03/18 repeat thoracentesis on the left 550 mL fluid was removed -pleural fluid labs are pending -pleural fluid Gram stain did not show any organisms, pleural fluid culture no growth so far -antibiotics as above -03/22: Chest CT from 03/21 reviewed, persistent bilateral pleural effusions, although mild in size. (3)
[2024-03-28] MEDS: fentaNYL CITRATE INJ (*CRX) 100 MCG/2 ML VIAL IV PUSH (11:10)
--- NOTE | 2024-03-28 11:23 | SUR.OPER ---
IN ROOM 1047: 122/47, 100%, 99.0, 64, 20 IVET [place] AT BEDSIDE PROCEDURE START 1101: 128/53, 100%, 99.0, 64, 14 PROCEDURE END 1116: 91/39, 99%, 99.0, 63, 20 OUT ROOM 1123: 77/35, 99%, 99/1, 63, 20. IVET [place] NOTIFIED AND AWARE
[2024-03-28 11:58] LABS: Glucose Point of Care 135 mg/dl (65-105)
[2024-03-28] MEDS: SCOPOLAMINE 1 MG PATCH 1 PATCH TRANSDERM (12:23)
--- NOTE | 2024-03-28 12:35 | PM.PNNEP ---
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(?) cannot r/o an element of CKD progression second insult likely due to fluctuating hypotension/hemodynamic instability fluctuating H/H Afib with RVR contrast (cardiac cath + CT scan) UTI evaluation to date noted: urine eosinophil negative urine electrolytes prerenal mild proteinuria CPK normal renal ultrasound c/w CKD creatinine is actually lower than his baseline probably because of his weakness and bed-bound status, his creatinine turned over is low continue follow trend of repeat labs and UOP (2) Chronic kidney disease, stage 3: Code(s): N18.3 - Chronic kidney disease, stage 3 (moderate) Status: Chronic Assessment and Plan: baseline creatinine seems to run ~ 1.4 - 1.7mg/dl this would cause him to fluctuate between CKD stage 3A and stage 3B likely secondary to hypertension, diabetes, severe vascular disease (CAD + PAD + hyperlipidemia), and age (3) Acute respiratory failure: Qualifiers: Respiratory failure complication: unspecified whether with hypoxia or hypercapnia Qualified Code(s): J96.00 - Acute respiratory failure, unspecified whether with hypoxia or hypercapnia Code(s): J96.00 - Acute respiratory failure, unspecified whether with hypoxia or hypercapnia Status: Acute Assessment and Plan: suspect multifactorial etiology: large left pleural effusion/ whiteout of left hemithorax hypoxia AMS/encephalopathy Weakness renal failure intubated on 03/15/24; extubated earlier on 03/21 but then quickly re-intubated holding diuretics due to rising BUN noted plan for tracheostomy s/p G-tube placement earlier today continue supportive care (4) Pleural effusion, left: Code(s): J90 - Pleural effusion, not elsewhere classified Status: Acute Assessment and Plan: as noted by recent CXR contributing component to #4 s/p left thoracentesis by IR on 03/15/24 pleural fluid studies/analysis noted on antibiotics as above (5) ST elevation (STEMI) myocardial infarction: Code(s): I21.3 - ST elevation (STEMI) myocardial infarction of unspecified site Status: Acute Assessment and Plan: admission EKG showed inferior lateral ST-elevation LA s/p cardiac cath with PTCA/PCI with KENYA x 1 to mid RCA which was 90% blocked no LV gram was performed due to renal dysfunction Cardiology following Echo results noted remains on DAPT and statin (6) Hypernatremia: Code(s): E87.0 - Hyperosmolality and hypernatremia Status: Acute Assessment and Plan: due to free water deficit and free water loss from diuretics continue free water tube flushes with titration as needed suspect as renal function improves, this should improve as well (7) Atrial fibrillation: Code(s): I48.91 - Unspecified atrial fibrillation Status: Acute Assessment and Plan: on amiodarone s/p cardioversion on 03/11 on anticoagulation Cardiology following (8) Anemia: Code(s): D64.9 - Anemia, unspecified Status: Acute Assessment and Plan: due in part to CKD and acute illness follow trend of H/H on Epogen (9) Insulin dependent type 2 diabetes mellitus: Code(s): E11.9 - Type 2 diabetes mellitus without complications; Z79.4 - talent associate (current) use of insulin Status: Acute Assessment and Plan: follow accu-cheks glycemic control per hospitalist/department supervisor Will continue to follow. Subjective Date/time seen: 03/28/24 12:35 Interval history: Follow-up for acute kidney injury/acute renal failure on chronic kidney disease. S/P PEG
--- NOTE | 2024-03-28 12:35 | P.PNNP_ITS ---
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 * prerenal factors(?) * cannot r/o an element of CKD progression * second insult likely due to * fluctuating hypotension/hemodynamic instability * fluctuating H/H * Afib with RVR * contrast (cardiac cath + CT scan) * UTI * evaluation to date noted: * urine eosinophil negative * urine electrolytes prerenal * mild proteinuria * CPK normal * renal ultrasound c/w CKD * creatinine is actually lower than his baseline * probably because of his weakness and bed-bound status, his creatinine turned over is low * continue follow trend of repeat labs and UOP (2) Chronic kidney disease, stage 3: Code(s): N18.3 - Chronic kidney disease, stage 3 (moderate) Status: Chronic Assessment and Plan: * baseline creatinine seems to run ~ 1.4 - 1.7mg/dl * this would cause him to fluctuate between CKD stage 3A and stage 3B * likely secondary to hypertension, diabetes, severe vascular disease (CAD + PAD + hyperlipidemia), and age (3) Acute respiratory failure: Qualifiers: Respiratory failure complication: unspecified whether with hypoxia or hypercapnia Qualified Code(s): J96.00 - Acute respiratory failure, unspecified whether with hypoxia or hypercapnia Code(s): J96.00 - Acute respiratory failure, unspecified whether with hypoxia or hypercapnia Status: Acute Assessment and Plan: * suspect multifactorial etiology: * large left pleural effusion/ whiteout of left hemithorax * hypoxia * AMS/encephalopathy * Weakness * renal failure * intubated on 03/15/24; extubated earlier on 03/21 but then quickly re-intubated * holding diuretics due to rising BUN * noted plan for tracheostomy * s/p G-tube placement earlier today * continue supportive care (4) Pleural effusion, left: Code(s): J90 - Pleural effusion, not elsewhere classified Status: Acute Assessment and Plan: * as noted by recent CXR * contributing component to #4 * s/p left thoracentesis by IR on 03/15/24 * pleural fluid studies/analysis noted * on antibiotics as above (5) ST elevation (STEMI) myocardial infarction: Code(s): I21.3 - ST elevation (STEMI) myocardial infarction of unspecified site Status: Acute Assessment and Plan: * admission EKG showed inferior lateral ST-elevation [place] * s/p cardiac cath with PTCA/PCI with KENYA x 1 to mid RCA which was 90% blocked * no LV gram was performed due to renal dysfunction * Cardiology following * Echo results noted * remains on DAPT and statin (6) Hypernatremia: Code(s): E87.0 - Hyperosmolality and hypernatremia Status: Acute Assessment and Plan: * due to free water deficit and free water loss from diuretics * continue free water tube flushes with titration as needed * suspect as renal function improves, this should improve as well (7) Atrial fibrillation: Code(s): I48.91 - Unspecified atrial fibrillation Status: Acute Assessment and Plan: * on amiodarone * s/p cardioversion on 03/11 * on anticoagulation * Cardiology following (8) Anemia: Code(s): D64.9 - Anemia, unspecified Status: Acute Assessment and Plan: * due in
[2024-03-28 14:07] LABS: Hepatitis B Surface Antigen Negative (Negative)
[2024-03-28 14:11] LABS: HAV RESULT Negative (Negative); Hepatitis B Core IgM Result Negative (Negative)
[2024-03-28 14:23] LABS: Hepatitis C Virus Antibody Negative (Negative)
[2024-03-28 16:14] LABS: Glucose Point of Care 123 mg/dl (65-105)
[2024-03-28] MEDS: METOCLOPRAMIDE HCL 10 MG TABLET FEED TUBE (17:56)
[2024-03-28] MEDS: INSULIN GLARGINE (*BKC) 100 UNITS/ML 70 UNITS SUB-Q (22:15)
[2024-03-28] MEDS: ENOXAPARIN 60 MG/0.6 ML SYRINGE 50 MG SUB-Q (22:17)
[2024-03-28 23:40] LABS: Glucose Point of Care 183 mg/dl (65-105)
[2024-03-28 23:40] LABS: Glucose Point of Care 247 mg/dl (65-105)
[2024-03-29] VITALS (33 sets, daily range): BP systolic 134–169; BP diastolic 46–109; PULSE 66–75; RESP 12–28; TEMP 37.1–37.7; O2SAT 97–100
[2024-03-29] MEDS: INSULIN ASPART (*BKC) 100 UNITS/ML SUB-Q ×4 (00:05→11:58)
[2024-03-29] MEDS: METOCLOPRAMIDE HCL 10 MG TABLET FEED TUBE ×5 (00:07→23:23)
[2024-03-29] MEDS: PROPOFOL IV EMULSION 100 ML 10.53 MG IV CONT (00:47)
[2024-03-29 05:34] LABS: Alveolar/Arterial O2 Gradient 63.4 mmHg; Base Excess ABG 0.9 mEq/l (+/-2.0); Carboxyhemoglobin 0.3 % THb (0-2.0); Fractional Inspired Oxygen 30 %; HCO3 ABG 23.8 mEq/l (22.0-26.0); Methemoglobin ABG 0.3 %THb (0-1.5); Oxygen Content ABG 13.8 %vol (16.0-22.0); Oxygen Saturation ABG 98.5 % (95.0-100.0); Oxyhemoglobin 97.8 % THb (90.0-100.0); PCO2 ABG 31.3 mmHg (35.0-45.0); PO2 ABG 113.7 mmHg (80.0-100.0); PO2 FiO2 Ratio Arterial Blood 3.79 %; Reduced Hemoglobin 1.6 %THb (0-5.0); Total Hemoglobin 9.9 g/dL (12.0-18.0); pH ABG 7.498 (7.350-7.450)
[2024-03-29 05:36] LABS: Arterial Blood Gas PEEP 10 cmH2O; Arterial Blood Gas Tidal Volume 450 ml; Arterial Blood Gas Vent Mode CMV; Arterial Blood Gas Ventilator rate 20 /MIN; Device VENTILATOR; Modified Allen's Test Pass; Site Drawn RIGHT RADIAL
[2024-03-29 05:56] LABS: Mean Corpuscular Hemoglobin 28.2 pg (26-34); Mean Platelet Volume 12.9 fl (7.4-10.4); Platelet Count Result 387 k/mm3 (150-375); Red Blood Count 3.19 M/mm3 (4.6-6.20); Red Cell Distribution Width 18.1 % (11.5-14.5); White Blood Count 16.1 K/mm3 (4.5-10.0)
[2024-03-29 06:01] LABS: Glucose Point of Care 220 mg/dl (65-105)
[2024-03-29 06:26] LABS: Alanine Aminotransferase 329 U/L (6-50); Albumin Level 3.3 g/dL (3.5-5.1); Alkaline Phosphatase 150 U/L (38-126); Anion Gap 6 mmol/L (4-12); Aspartate Amino Transferase 497 U/L (17-59); Bilirubin,Total 0.5 mg/dL (0.2-1.3); Blood Urea Nitrogen 113 mg/dL (9-20); Calcium 8.4 mg/dL (8.4-10.2); Carbon Dioxide 27 mmol/L (22-30); Chloride 111 mmol/L (98-107); Estimated CRCL calculation 47 ml/min; Estimated Glomerular Filt Rate 38; Glucose 228 mg/dL (65-110); Phosphorus 5.4 mg/dL (2.5-4.5); Potassium 4.2 mmol/L (3.4-5.0); Sodium 144 mmol/L (137-145)
[2024-03-29] MEDS: AZTREONAM 2 GM in SODIUM CHLORIDE 0.9% IV 100 ML IVPB ×3 (06:40→21:10)
[2024-03-29] MEDS: CENTRAL LINE FLUSH 10 ML IV PUSH ×3 (06:50→21:11)
[2024-03-29 08:01] LABS: Glucose Point of Care 207 mg/dl (65-105)
[2024-03-29] MEDS: CLOPIDOGREL BISULFATE 75 MG TABLET PO (08:06)
[2024-03-29] MEDS: METOPROLOL TARTRATE 50 MG TAB PO ×2 (08:06→20:57)
[2024-03-29] MEDS: PANTOPRAZOLE SODIUM IV 40 MG VIAL IV PUSH ×2 (08:06→20:58)
[2024-03-29] MEDS: ASPIRIN 81 MG CHEWABLE TABLET PO (08:06)
[2024-03-29] MEDS: AMIODARONE HCL 200 MG TABLET 400 MG PO (08:06)
[2024-03-29] MEDS: ENOXAPARIN 60 MG/0.6 ML SYRINGE 50 MG SUB-Q (08:07)
[2024-03-29] MEDS: LINEZOLID 600 MG/300 ML 600 MG/300 ML SOLN 300 MG IVPB ×2 (08:07→21:05)
[2024-03-29] MEDS: INSULIN GLARGINE (*BKC) 100 UNITS/ML 70 UNITS SUB-Q ×2 (08:08→20:58)
[2024-03-29] MEDS: EPOETIN ALFA-EPBX 10,000 UNITS/ML VIAL 10000 UNITS SUB-Q (08:08)
[2024-03-29] MEDS: MINERAL OIL/WHITE PETROLATUM OINTMENT 1 APPLIC EACH EYE ×2 (08:13→21:05)
[2024-03-29] MEDS: TOLNAFTATE 1% POWDER 45 GM BTL 1 APPLIC TOPICAL ×2 (08:13→21:13)
--- NOTE | 2024-03-29 08:50 | WPDINTPN ---
Progress Note: A&P Assessment and Plan (1) Acute respiratory failure: Qualifiers: Respiratory failure complication: unspecified whether with hypoxia or hypercapnia Qualified Code(s): J96.00 - Acute respiratory failure, unspecified whether with hypoxia or hypercapnia Code(s): J96.00 - Acute respiratory failure, unspecified whether with hypoxia or hypercapnia Status: Acute Assessment and Plan: ?Acute respiratory failure likely related to large left pleural effusion, hypoxia, encephalopathy, mottling, requiring intubation on 03/15/24. 03/18: Pleural effusion improving clinically and radiographically Microbiology studies: -03/16 Blood cx: no growth to date -03/16 Sputum cx: MRSA growth -03/16 Urine cx no growth -03/15 Left Pleural fluid: no organisms seen, pending cultures and cytology -03/18 Right pleural fluid: no organisms seen. Pathology report without malignancy, pending cytology -03/21: failed extubation and emergently reintubated after desaturating. Follow up chest CT without new cardiopulmonary disease changes, however possible cholecystitis. Received IV methylprednisone after reintubation for any potential airway edema. -Continue Propofol infusion for sedation -Sedation goal RASS of 0 to -2, with daily sedation vacation -Continue CMV mode of ventilation, PEEP 10, FiO2 35% -ABG reviewed.? Vent settings reviewed -continue bronchodilators -responding well to diuretics, continue Lasix 40 mg IV q.a.m. -completed 7 day course of vancomycin, aztreonam -Completed 5 day course of Flagyl -03/25: Patient with fevers, elevated WBC count, 03/16/2024: Sputum cultures grew MRSA, patient was started on linezolid -03/26: Added Levaquin will continue linezolid 03/27: Worsening WBC count, will discontinue Levaquin and started on aztreonam. Continue linezolid 03/28: Fever curve improved, leukocytosis improving 03/29: Fever curve remains improved, leukocytosis improving, will continue linezolid and aztreonam - 03/24 failed weaning trial yesterday as patient developed respiratory distress with increased work of breathing on pressure support after some time. Will attempt a weaning trial again today - 03/25 decrease tidal volume to 420.? Will re-attempt weaning trial again today.? Continue diuretics -03/26: Placed on ASV mode of ventilation this patient was tachypneic and dyssynchronous with the ventilator 03/27: Tolerating ASV mode, will decrease to 90% minute ventilation, as ABGs reviewed, and patient has respiratory alkalosis 03/28: Patient placed on pressure support ventilation 10/20, tolerating well. Had to switch back to CMV mode due to PEG tube placement procedure. Will retry pressure support ventilation -03/29: Placed patient on pressure support ventilation 10/20, tolerating well asked the bedside RN to decrease the propofol, will wean PSV and place him a SBT Sister has agreed for tracheostomy and PEG tube placement 03/28: PEG tube placed 04/01: Tracheostomy has been scheduled 03/16/2024: CT chest/Abdomen/Pelvis non contrast IMPRESSION: 1. Lines and tubes in expected position. 2. Persistent consolidation in the left mid to lower lung zone correspond to a small left pleural effusion and associated atelectasis on prior CT. Superimposed pneumonia not excludable. 3. Increasing pulmonary vascular congestion with indistinct interstitial and hazy airspace opacity right mid to lower lung zone likely combination of mild pulmonary edema or pneumonia superimposed over a small to moderate-sized right pleural effusion which is much better appreciated on prior CT. 4. Large cardiac silhouette on prior CT correspond to a large pericardial effusion (2) Pleural effusion, left: Code(s): J90 - Pleural effusion, not elsewhere classified Status: Acute Assessment and Plan: Large left pleural effusion -03/15:? Left thoracentesis with drainage of 500 mL of yellowish fluid 03/18 repeat thoracentesis on the left 550 mL fluid was removed -pleural
--- NOTE | 2024-03-29 10:12 | P.PNNP_ITS ---
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(?) * cannot r/o an element of CKD progression * second insult likely due to * fluctuating hypotension/hemodynamic instability * fluctuating H/H * Afib with RVR * contrast (cardiac cath + CT scan) * UTI * evaluation to date noted: * urine eosinophil negative * urine electrolytes prerenal * mild proteinuria * CPK normal * renal ultrasound c/w CKD * creatinine is actually lower than his baseline * probably because of his weakness and bed-bound status, his creatinine turned over is low * continue follow trend of repeat labs and UOP (2) Chronic kidney disease, stage 3: Code(s): N18.3 - Chronic kidney disease, stage 3 (moderate) Status: Chronic Assessment and Plan: * baseline creatinine seems to run ~ 1.4 - 1.7mg/dl * this would cause him to fluctuate between CKD stage 3A and stage 3B * likely secondary to hypertension, diabetes, severe vascular disease (CAD + PAD + hyperlipidemia), and age (3) Acute respiratory failure: Qualifiers: Respiratory failure complication: unspecified whether with hypoxia or hypercapnia Qualified Code(s): J96.00 - Acute respiratory failure, unspecified whether with hypoxia or hypercapnia Code(s): J96.00 - Acute respiratory failure, unspecified whether with hypoxia or hypercapnia Status: Acute Assessment and Plan: * suspect multifactorial etiology: * large left pleural effusion/ whiteout of left hemithorax * hypoxia * AMS/encephalopathy * weakness * renal failure * intubated on 03/15/24; extubated earlier on 03/21 but then quickly re-intubated * off diuretics due to rising BUN * noted plan for tracheostomy and G-tube placement * G-tube placed on 03/28 * tracheostomy scheduled for next week * continue supportive care (4) Pleural effusion, left: Code(s): J90 - Pleural effusion, not elsewhere classified Status: Acute Assessment and Plan: * as noted by recent CXR * contributing component to #4 * s/p left thoracentesis by IR on 03/15/24 * pleural fluid studies/analysis noted * on antibiotics as above (5) ST elevation (STEMI) myocardial infarction: Code(s): I21.3 - ST elevation (STEMI) myocardial infarction of unspecified site Status: Acute Assessment and Plan: * admission EKG showed inferior lateral ST-elevation [place] * s/p cardiac cath with PTCA/PCI with KENYA x 1 to mid RCA which was 90% blocked * no LV gram was performed due to renal dysfunction * Cardiology following * Echo results noted * remains on DAPT and statin (6) Hypernatremia: Code(s): E87.0 - Hyperosmolality and hypernatremia Status: Acute Assessment and Plan: * due to free water deficit and free water loss from diuretics * continue free water tube flushes with titration as needed (7) Atrial fibrillation: Code(s): I48.91 - Unspecified atrial fibrillation Status: Acute Assessment and Plan: * on amiodarone * s/p cardioversion on 03/11 * on anticoagulation * Cardiology following (8) Anemia: Code(s): D64.9 - Anemia, unspecified Status: Acute Assessment and Plan: * due in part to CKD and acu
--- NOTE | 2024-03-29 10:12 | PM.PNNEP ---
Progress Note: A&P Assessment and Plan (1) SIM (acute kidney injury): Code(s): N17.9 - Acute kidney failure, unspecified Status: Acute Assessment and Plan: relatively stable if not close to baseline suspect initial insult due to: acute SC concurrent [employer] prerenal factors(?) cannot r/o an element of CKD progression second insult likely due to fluctuating hypotension/hemodynamic instability fluctuating H/H Afib with RVR contrast (cardiac cath + CT scan) UTI evaluation to date noted: urine eosinophil negative urine electrolytes prerenal mild proteinuria CPK normal renal ultrasound c/w CKD creatinine is actually lower than his baseline probably because of his weakness and bed-bound status, his creatinine turned over is low continue follow trend of repeat labs and UOP (2) Chronic kidney disease, stage 3: Code(s): N18.3 - Chronic kidney disease, stage 3 (moderate) Status: Chronic Assessment and Plan: baseline creatinine seems to run ~ 1.4 - 1.7mg/dl this would cause him to fluctuate between CKD stage 3A and stage 3B likely secondary to hypertension, diabetes, severe vascular disease (CAD + PAD + hyperlipidemia), and age (3) Acute respiratory failure: Qualifiers: Respiratory failure complication: unspecified whether with hypoxia or hypercapnia Qualified Code(s): J96.00 - Acute respiratory failure, unspecified whether with hypoxia or hypercapnia Code(s): J96.00 - Acute respiratory failure, unspecified whether with hypoxia or hypercapnia Status: Acute Assessment and Plan: suspect multifactorial etiology: large left pleural effusion/ whiteout of left hemithorax hypoxia AMS/encephalopathy weakness renal failure intubated on 03/15/24; extubated earlier on 03/21 but then quickly re-intubated off diuretics due to rising BUN noted plan for tracheostomy and G-tube placement G-tube placed on 03/28 tracheostomy scheduled for next week continue supportive care (4) Pleural effusion, left: Code(s): J90 - Pleural effusion, not elsewhere classified Status: Acute Assessment and Plan: as noted by recent CXR contributing component to #4 s/p left thoracentesis by IR on 03/15/24 pleural fluid studies/analysis noted on antibiotics as above (5) ST elevation (STEMI) myocardial infarction: Code(s): I21.3 - ST elevation (STEMI) myocardial infarction of unspecified site Status: Acute Assessment and Plan: admission EKG showed inferior lateral ST-elevation SC s/p cardiac cath with PTCA/PCI with KENYA x 1 to mid RCA which was 90% blocked no LV gram was performed due to renal dysfunction Cardiology following Echo results noted remains on DAPT and statin (6) Hypernatremia: Code(s): E87.0 - Hyperosmolality and hypernatremia Status: Acute Assessment and Plan: due to free water deficit and free water loss from diuretics continue free water tube flushes with titration as needed (7) Atrial fibrillation: Code(s): I48.91 - Unspecified atrial fibrillation Status: Acute Assessment and Plan: on amiodarone s/p cardioversion on 03/11 on anticoagulation Cardiology following (8) Anemia: Code(s): D64.9 - Anemia, unspecified Status: Acute Assessment and Plan: due in part to CKD and acute illness follow trend of H/H on Epogen (9) Insulin dependent type 2 diabetes mellitus: Code(s): E11.9 - Type 2 diabetes mellitus without complications; 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 Subjective Date/time seen: 03/29/24 10:12 Interval history: Follow-up for acute kidney injury/acute renal failure on chronic kidne
--- NOTE | 2024-03-29 10:24 | PM.PNCARD ---
Progress Note: A&P Assessment and Plan (1) ST elevation (STEMI) myocardial infarction: Code(s): I21.3 - ST elevation (STEMI) myocardial infarction of unspecified site Status: Acute Assessment and Plan: History of multivessel coronary disease admitted to the hospital on 03/04/[address] elevation NH. Underwent successful percutaneous revascularization of his mid circumflex which was technically challenging because of his extensive vascular disease and difficult vascular access. Procedure was ultimately done with a good angiographic result. Previous stented vessels in his LAD and right mid right coronary were remaining patent. He has extensive peripheral vascular disease and has undergone right lower extremity amputation. Continue Clopidogrel 75 mg daily, Aspirin 81 mg daily, high intensity statin (2) Acute respiratory failure: Qualifiers: Respiratory failure complication: unspecified whether with hypoxia or hypercapnia Qualified Code(s): J96.00 - Acute respiratory failure, unspecified whether with hypoxia or hypercapnia Code(s): J96.00 - Acute respiratory failure, unspecified whether with hypoxia or hypercapnia Status: Acute Assessment and Plan: On mechanical ventilation, but he cannot be weaned from the vent. Given prolonged intubation, ENT and GI have been consulted for trach and peg. S/p peg tube 03/28. Trach planned for Monday. (3) Atrial fibrillation with RVR: Code(s): I48.91 - Unspecified atrial fibrillation Status: Acute Assessment and Plan: S/p DCCV earlier during his hospitalization. Was not on anticoagulation earlier in hospitalization due to anemia requiring transfusion, however, has been receiving therapeutic Lovenox and tolerating thus far. Will eventually switch to NOAC prior to discharge. Continue Amiodarone and Metoprolol. (4) Acute renal failure superimposed on stage 3 chronic kidney disease: Code(s): N17.9 - Acute kidney failure, unspecified; N18.30 - Chronic kidney disease, stage 3 unspecified Status: Acute Assessment and Plan: Multifactorial secondary to acute NH, hypotension, contrast exposure. 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 Subjective Date/time seen: 03/29/24 10:24 Interval history: Follow-up visit in this 63-year-old man with diffuse coronary and peripheral arterial disease. Presented to the hospital on 03/04/2024 with some neck pain and altered mental status. STEMI was declared because of inferolateral ST segment elevation. High-grade stenosis in the trunk of the circumflex was identified and treated with PCI as detailed in the catheterization lab report. Previous LAD and right coronary stents were patent. Patient remains hospitalized was having difficulty with recurrence of atrial fibrillation last evening. This was a accompanied by hypotension requiring transfer back to the ICU. Likely this is a combination of his atrial fib other medications that were on board for hypertension. He is receiving intravenous amiodarone at this
[2024-03-29] MEDS: PROPOFOL IV EMULSION 100 ML 7.02 MG IV CONT (11:30)
--- NOTE | 2024-03-29 11:38 | PCNFU ---
Addendum entered by Christina Noriega RD, LDN 03/29/24 11:57: Meds: Propofol currently at 10 mcgs or 1.02 ml/hr providing an additional 185 kcals. Will continue to monitor infusion. Original Note: Nutrition Follow-Up Complete: Increased protein energy needs related to mechanical ventilation as evidenced by NPO, need for full tube feeding Goal: Meet estimated protein energy needs Patient is progressing towards goal. We will continue current goal. Pt current nutrition is Glucerna 1.2 at 70 ml/hr with Prosource BID Nutrition recommendation: Timmy BID. Last recorded weight is 110 kg, stable. Bowel Motility:+BM reported 03/28 Labs Reviewed:GFR 38, BUN 113, Glu 228,Alb 3.3,Hct 30.0, Hgb 9.0 Meds Noted:Crestor, Lantus, Senokot, Vancomycin, Miralax. Skin:Deep Tissue-pressure ulcer reported,not stage III Additional Notes: Patient had PEG placed 03/28. Tube feedings are being tolerated of Glucerna 1.2 at 70 ml/hr with Prosource BID. Total Nutrition: 2008 kcal/132 gm protein/1240 ml water. Flush 50 ml q 6 hours. Plans for Trach 04/01. Agree with diet orders. Monitoring tube feeding tolerance, weights, labs, output, plan of care Follow in rounds, reassess Monday and Monday per policy
[2024-03-29 12:07] LABS: Glucose Point of Care 204 mg/dl (65-105)
--- NOTE | 2024-03-29 16:03 | WPDGIPROGNO ---
Progress Note: A&P Assessment and Plan (1) Acute respiratory failure: Qualifiers: Respiratory failure complication: unspecified whether with hypoxia or hypercapnia Qualified Code(s): J96.00 - Acute respiratory failure, unspecified whether with hypoxia or hypercapnia Code(s): J96.00 - Acute respiratory failure, unspecified whether with hypoxia or hypercapnia Status: Acute Assessment and Plan: s/p peg placement and tolerating tube feeding trach in few more days (2) ST elevation (STEMI) myocardial infarction: Code(s): I21.3 - ST elevation (STEMI) myocardial infarction of unspecified site Status: Acute Assessment and Plan: treated by emergent cardiac cath with stents, on plavix cardiology on board (3) Acute renal failure superimposed on stage 3 chronic kidney disease: Code(s): N17.9 - Acute kidney failure, unspecified; N18.30 - Chronic kidney disease, stage 3 unspecified Status: Acute (4) Elevated LFTs: Code(s): R79.89 - Other specified abnormal findings of blood chemistry Status: Acute Assessment and Plan: hida scan patent cystic duct, noted cholelithiasis without acute inflammation hepatitis panel negative probably multifactorial from renal disease, stemi/afib, medication, etc monitor (5) CHF (congestive heart failure): Code(s): I50.9 - Heart failure, unspecified Status: Acute (6) Atrial fibrillation: Code(s): I48.91 - Unspecified atrial fibrillation Status: Acute Subjective Date/time seen: 03/29/24 16:03 Interval history: egd yesterday with g-tube placement, he is tolerating TF at 70 ml/h still intubated Review of Systems Review of Systems: All systems reviewed & are unremarkable except as noted in HPI and below Exam Narrative: General:? Patient is intubated, sedated with propofol in no distress HEENT:? Pupils equal and reactive, sclerae is clear, ETT in place Neck:? Supple Respiratory:? coarse breath sounds bilaterally, decreased air entry on left lower region.? No wheezing, adequate air entry Cardiac:? S1-S2 was normal, regular rate and rhythm Abdomen:? 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 Patient is intubated and sedated, patient is awake, eyes open, nods to questions but today does not follow any simple commands, withdraws to pain in all extremities Skin:? Chronic venous stasis changes Psych:? Unable to assess at this time Objective Data Vital Signs Vital Signs: Vital Signs - 24 hr 03/28/24 16:05 03/28/24 18:00 03/28/24 18:00 Temperature 98.9 F Pulse Rate 69 70 70 Respiratory Rate 20 Blood Pressure 166/53 H Pulse Oximetry 100 100 Oxygen Delivery Mechanical Ventilation Fraction of Inspired Oxygen 30 03/28/24 17:00 03/28/24 18:35 03/28/24 19:56 Temperature Pulse Rate 79 69 71 Respiratory Rate 22 H 18 Blood Pressure Pulse Oximetry 100 Oxygen Delivery Mechanical Ventilation Fraction of Inspired Oxygen 30 03/28/24 20:00 03/28/24 20:00 03/28/24 22:17 Temperature Pulse Rate 73 74 Respiratory Rate 18 Blood Pressure Pulse Oximetry 100 Oxygen Delivery Mechanical Ventilation Fraction of Inspired Oxygen 30 30 03/28/24 23:25 03/28/24 20:00 03/28/24 22:00 Temperature Pulse Rate 71 73 74 Respiratory Rate Blood Pressure Pulse Oximetry 100 Oxygen Delivery Mechanical Ventilation Fraction of Inspired Oxygen 30 03/28/24 20:00 03/28/24 22:00 03/29/24 00:00 Temperature 99.3 F 99.4 F Pulse Rate 73 74 70 Respiratory Rate 18 18 18 Blood Pressure 155/49 H 159/54 H Pulse Oximetry 100 100 100 Oxygen Delivery Mechanical Ventilation Fraction of Inspired Oxygen 30 03/29/24 00:00 03/29/24 00:00 03/29/24 00:00 Temperature 99.7 F H Pulse Rate 68 68 Respiratory Rate 20 Blood Pressure 148/49 H Pulse Oximetry 100 Oxygen Delivery Fr
[2024-03-29 16:20] LABS: Glucose Point of Care 122 mg/dl (65-105)
[2024-03-29] MEDS: LABETALOL HCL INJ 100 MG/20 ML VIAL 20 MG IV PUSH (16:22)
--- NOTE | 2024-03-29 17:57 | PM.IMPN ---
Progress Note: A&P Assessment and Plan (1) Acute respiratory failure: Qualifiers: Respiratory failure complication: unspecified whether with hypoxia or hypercapnia Qualified Code(s): J96.00 - Acute respiratory failure, unspecified whether with hypoxia or hypercapnia Code(s): J96.00 - Acute respiratory failure, unspecified whether with hypoxia or hypercapnia Status: Acute Plan Unable to wean for several days now. Plan for tracheostomy. Continue Lovenox 110 mg subQ b.i.d.. Full code. Subjective Date/time seen: 03/29/24 17:57 Interval history: Patient examined while intubated. He has a RASS of 0 and tracks with his eyes. Review of Systems Review of Systems: All systems reviewed & are unremarkable except as noted in HPI and below ROS unobtainable: Yes unobtainable due to mental status Exam Const: General: comfortable and no acute distress Eyes: Pupils: Equal, round and reactive pupils present Neck: Neck: supple Resp: Effort & Inspection: normal respiratory effort Auscultation: clear to auscultation bilaterally Cardio: Rate: regular rate Rhythm: regular rhythm GI: GI Palp: No Tenderness to palpation present (GI) Extrem: Other: Right BKA Objective Data Vital Signs Vital Signs: Vital Signs - 24 hr 03/28/24 18:00 03/28/24 18:00 03/28/24 18:35 Temperature 98.9 F Pulse Rate 70 70 69 Respiratory Rate 20 18 Blood Pressure 166/53 H Pulse Oximetry 100 Oxygen Delivery Fraction of Inspired Oxygen 03/28/24 19:56 03/28/24 20:00 03/28/24 20:00 Temperature Pulse Rate 71 73 Respiratory Rate 18 Blood Pressure Pulse Oximetry 100 100 Oxygen Delivery Mechanical Ventilation Mechanical Ventilation Fraction of Inspired Oxygen 30 30 30 03/28/24 22:17 03/28/24 23:25 03/28/24 20:00 Temperature Pulse Rate 74 71 73 Respiratory Rate Blood Pressure Pulse Oximetry 100 Oxygen Delivery Mechanical Ventilation Fraction of Inspired Oxygen 30 03/28/24 22:00 03/28/24 20:00 03/28/24 22:00 Temperature 99.3 F 99.4 F Pulse Rate 74 73 74 Respiratory Rate 18 18 Blood Pressure 155/49 H 159/54 H Pulse Oximetry 100 100 Oxygen Delivery Fraction of Inspired Oxygen 03/29/24 00:00 03/29/24 00:00 03/29/24 00:00 Temperature Pulse Rate 70 68 Respiratory Rate 18 Blood Pressure Pulse Oximetry 100 Oxygen Delivery Mechanical Ventilation Fraction of Inspired Oxygen 30 30 03/29/24 00:00 03/29/24 00:00 03/28/24 20:00 Temperature 99.7 F H Pulse Rate 68 68 73 Respiratory Rate 20 18 18 Blood Pressure 148/49 H Pulse Oximetry 100 Oxygen Delivery Fraction of Inspired Oxygen 03/28/24 22:00 03/29/24 00:22 03/29/24 00:47 Temperature Pulse Rate 75 70 69 Respiratory Rate 20 20 20 Blood Pressure Pulse Oximetry Oxygen Delivery Fraction of Inspired Oxygen 03/29/24 02:00 03/29/24 02:00 03/29/24 04:00 Temperature 99.9 F H Pulse Rate 73 71 71 Respiratory Rate 20 20 Blood Pressure 160/54 H Pulse Oximetry 100 100 Oxygen Delivery Mechanical Ventilation Fraction of Inspired Oxygen 30 03/29/24 04:00 03/29/24 04:00 03/29/24 04:00 Temperature 99.9 F H Pulse Rate 73 73 Respiratory Rate 20 Blood Pressure 161/53 H Pulse Oximetry 99 Oxygen Delivery Fraction of Inspired Oxygen 30 03/29/24 02:18 03/29/24 05:24 03/29/24 06:00 Temperature Pulse Rate 71 72 74 Respiratory Rate Blood Pressure Pulse Oximetry 100 99 Oxygen Delivery Mechanical Ventilation Mechanical Ventilation Fraction of Inspired Oxygen 30 30 03/29/24 06:00 03/29/24 02:00 03/29/24 04:00 Temperature 99.5 F Pulse Rate 74 75 73 Respiratory Rate 18 18 20 Blood Pressure 155/48 H Pulse Oximetry 99 Oxygen Delivery Fraction of Inspired Oxygen 03/29/24 06:00 03/29/24 07:30 03/29/24 08:06 Temperature Pulse Rate 74 73 73 Respiratory Rate 18 Blood Pressure P
[2024-03-29] MEDS: ENOXAPARIN 120 MG/0.8 ML SYRINGE 110 MG SUB-Q (20:57)
[2024-03-29] MEDS: SENNA/DOCUSATE SODIUM TABLET 1 TAB PO (20:57)
[2024-03-29 22:13] LABS: Glucose Point of Care 121 mg/dl (65-105)
[2024-03-29 23:35] LABS: Glucose Point of Care 177 mg/dl (65-105)
[2024-03-30] VITALS (30 sets, daily range): BP systolic 119–161; BP diastolic 45–57; PULSE 67–79; RESP 14–22; TEMP 37.2–37.8; O2SAT 97–100
[2024-03-30] MEDS: PROPOFOL IV EMULSION 100 ML 7.02 MG IV CONT ×2 (00:46→13:19)
[2024-03-30 03:18] LABS: Glucose Point of Care 180 mg/dl (65-105)
[2024-03-30 05:04] LABS: Alveolar/Arterial O2 Gradient 84.4 mmHg; Base Excess ABG 2.1 mEq/l (+/-2.0); Carboxyhemoglobin 0.3 % THb (0-2.0); Fractional Inspired Oxygen 30 %; HCO3 ABG 25.4 mEq/l (22.0-26.0); Methemoglobin ABG 0.3 %THb (0-1.5); Oxygen Content ABG 13.6 %vol (16.0-22.0); Oxygen Saturation ABG 97.4 % (95.0-100.0); Oxyhemoglobin 96.6 % THb (90.0-100.0); PCO2 ABG 34.5 mmHg (35.0-45.0); PO2 FiO2 Ratio Arterial Blood 2.97 %; Reduced Hemoglobin 2.8 %THb (0-5.0); Total Hemoglobin 9.9 g/dL (12.0-18.0); pH ABG 7.485 (7.350-7.450)
[2024-03-30 05:06] LABS: Device VENTILATOR; Modified Allen's Test Pass; Site Drawn RIGHT RADIAL
[2024-03-30 05:07] LABS: Arterial Blood Gas PEEP 5 cmH2O; Arterial Blood Gas Vent Mode ASV; Peak Inspiratory Pressure 16 cmH2O
[2024-03-30] MEDS: AZTREONAM 2 GM in SODIUM CHLORIDE 0.9% IV 100 ML IVPB (05:26)
[2024-03-30] MEDS: CENTRAL LINE FLUSH 10 ML IV PUSH ×3 (05:27→21:29)
[2024-03-30 05:39] LABS: Hematocrit 30.6 % (42.0-52.0); Mean Corpuscular HGB Conc 29.4 g/dl (32-36); Mean Corpuscular Hemoglobin 28.1 pg (26-34); Mean Corpuscular Volume 95.6 fl (80-100); Mean Platelet Volume 11.7 fl (7.4-10.4); Platelet Count Result 378 k/mm3 (150-375); Red Cell Distribution Width 18.4 % (11.5-14.5)
[2024-03-30 05:55] LABS: Alanine Aminotransferase 307 U/L (6-50); Albumin Level 3.2 g/dL (3.5-5.1); Alkaline Phosphatase 141 U/L (38-126); Anion Gap 6 mmol/L (4-12); Aspartate Amino Transferase 407 U/L (17-59); Bilirubin,Total 0.4 mg/dL (0.2-1.3); Blood Urea Nitrogen 94 mg/dL (9-20); Calcium 8.1 mg/dL (8.4-10.2); Carbon Dioxide 26 mmol/L (22-30); Chloride 114 mmol/L (98-107); Estimated CRCL calculation 56 ml/min; Estimated Glomerular Filt Rate 47; Glucose 159 mg/dL (65-110); Magnesium 2.9 mg/dL (1.6-2.3); Phosphorus 4.5 mg/dL (2.5-4.5); Potassium 4.1 mmol/L (3.4-5.0); Sodium 146 mmol/L (137-145); Triglycerides 106 mg/dL (<150)
--- NOTE | 2024-03-30 09:04 | WPDINTPN ---
Progress Note: A&P Assessment and Plan (1) Acute respiratory failure: Qualifiers: Respiratory failure complication: unspecified whether with hypoxia or hypercapnia Qualified Code(s): J96.00 - Acute respiratory failure, unspecified whether with hypoxia or hypercapnia Code(s): J96.00 - Acute respiratory failure, unspecified whether with hypoxia or hypercapnia Status: Acute Assessment and Plan: ?Acute respiratory failure likely related to large left pleural effusion, hypoxia, encephalopathy, mottling, requiring intubation on 03/15/24. 03/18: Pleural effusion improving clinically and radiographically Microbiology studies: -03/16 Blood cx: no growth to date -03/16 Sputum cx: MRSA growth -03/16 Urine cx no growth -03/15 Left Pleural fluid: no organisms seen, pending cultures and cytology -03/18 Right pleural fluid: no organisms seen. Pathology report without malignancy, pending cytology -03/21: failed extubation and emergently reintubated after desaturating. Follow up chest CT without new cardiopulmonary disease changes, however possible cholecystitis. Received IV methylprednisone after reintubation for any potential airway edema. -Continue Propofol infusion for sedation -Sedation goal RASS of 0 to -2, with daily sedation vacation -Continue CMV mode of ventilation, PEEP 10, FiO2 35% -ABG reviewed.? Vent settings reviewed -continue bronchodilators -responding well to diuretics, continue Lasix 40 mg IV q.a.m. -completed 7 day course of vancomycin, aztreonam -Completed 5 day course of Flagyl -03/25: Patient with fevers, elevated WBC count, 03/16/2024: Sputum cultures grew MRSA, patient was started on linezolid -03/26: Added Levaquin will continue linezolid 03/27: Worsening WBC count, will discontinue Levaquin and started on aztreonam. Continue linezolid 03/28: Fever curve improved, leukocytosis improving 03/29: Fever curve remains improved, leukocytosis improving, will continue linezolid and aztreonam 03/27: Sputum cultures growing MRSA - 03/24 failed weaning trial yesterday as patient developed respiratory distress with increased work of breathing on pressure support after some time. Will attempt a weaning trial again today - 03/25 decrease tidal volume to 420.? Will re-attempt weaning trial again today.? Continue diuretics -03/26: Placed on ASV mode of ventilation this patient was tachypneic and dyssynchronous with the ventilator 03/27: Tolerating ASV mode, will decrease to 90% minute ventilation, as ABGs reviewed, and patient has respiratory alkalosis 03/28: Patient placed on pressure support ventilation 12/8, tolerating well. Had to switch back to CMV mode due to PEG tube placement procedure. Will retry pressure support ventilation -03/29: Placed patient on pressure support ventilation /8, tolerating well asked the bedside RN to decrease the propofol, tolerated pressure support 08/17 -03/30: Currently on ASV mode of ventilation, patient is more awake will place him on pressure support ventilation Sister has agreed for tracheostomy and PEG tube placement 03/28: PEG tube placed 04/01: Tracheostomy has been scheduled 03/16/2024: CT chest/Abdomen/Pelvis non contrast IMPRESSION: 1. Lines and tubes in expected position. 2. Persistent consolidation in the left mid to lower lung zone correspond to a small left pleural effusion and associated atelectasis on prior CT. Superimposed pneumonia not excludable. 3. Increasing pulmonary vascular congestion with indistinct interstitial and hazy airspace opacity right mid to lower lung zone likely combination of mild pulmonary edema or pneumonia superimposed over a small to moderate-sized right pleural effusion which is much better appreciated on prior CT. 4. Large cardiac silhouette on prior CT correspond to a large pericardial effusion (2) Pleural effusion, left: Code(s): J90 - Pleural effusion, not elsewhere classified Status: Acute Assessment and Plan: Large left pleura
[2024-03-30] MEDS: PANTOPRAZOLE SODIUM IV 40 MG VIAL IV PUSH ×2 (09:09→20:13)
[2024-03-30] MEDS: CLOPIDOGREL BISULFATE 75 MG TABLET PO (09:11)
[2024-03-30] MEDS: AMIODARONE HCL 200 MG TABLET 400 MG PO (09:11)
[2024-03-30] MEDS: METOPROLOL TARTRATE 50 MG TAB PO ×2 (09:12→20:13)
[2024-03-30] MEDS: ENOXAPARIN 120 MG/0.8 ML SYRINGE 110 MG SUB-Q ×2 (09:12→20:13)
[2024-03-30] MEDS: ASPIRIN 81 MG CHEWABLE TABLET PO (09:12)
[2024-03-30] MEDS: LINEZOLID 600 MG/300 ML 600 MG/300 ML SOLN 300 MG IVPB ×2 (09:14→20:13)
[2024-03-30] MEDS: TOLNAFTATE 1% POWDER 45 GM BTL 1 APPLIC TOPICAL ×2 (09:14→20:14)
[2024-03-30] MEDS: MINERAL OIL/WHITE PETROLATUM OINTMENT 1 APPLIC EACH EYE ×2 (09:15→20:13)
[2024-03-30] MEDS: INSULIN GLARGINE (*BKC) 100 UNITS/ML 50 UNITS SUB-Q ×2 (09:36→20:14)
[2024-03-30 09:41] LABS: Glucose Point of Care 174 mg/dl (65-105)
[2024-03-30 11:57] LABS: Glucose Point of Care 194 mg/dl (65-105)
[2024-03-30] MEDS: AZTREONAM 2 GM in SODIUM CHLORIDE 0.9% IV 100 ML 200 ML IVPB ×2 (13:52→21:29)
[2024-03-30 16:07] LABS: Glucose Point of Care 246 mg/dl (65-105)
[2024-03-30] MEDS: INSULIN ASPART (*BKC) 100 UNITS/ML SUB-Q (16:08)
[2024-03-30 20:08] LABS: Glucose Point of Care 190 mg/dl (65-105)
[2024-03-31] VITALS (33 sets, daily range): BP systolic 105–171; BP diastolic 44–71; PULSE 63–88; RESP 15–33; TEMP 37.2–37.7; O2SAT 97–99
[2024-03-31] LABS: Glucose Point of Care 267 mg/dl (65-105)
[2024-03-31] MEDS: INSULIN ASPART (*BKC) 100 UNITS/ML SUB-Q ×4 (00:02→16:08)
[2024-03-31] MEDS: PROPOFOL IV EMULSION 100 ML 7.02 MG IV CONT ×2 (00:03→12:26)
[2024-03-31] MEDS: hydrALAZINE HCL 20 MG/ML VIAL 10 MG IV PUSH ×2 (00:20→09:34)
[2024-03-31] MEDS: LABETALOL HCL INJ 100 MG/20 ML VIAL 20 MG IV PUSH ×2 (03:05→12:27)
[2024-03-31] MEDS: ACETAMINOPHEN 325 MG TABLET 650 MG PO (03:42)
[2024-03-31 04:04] LABS: Glucose Point of Care 234 mg/dl (65-105)
[2024-03-31 05:40] LABS: Alveolar/Arterial O2 Gradient 70.4 mmHg; Base Excess ABG -0.7 mEq/l (+/-2.0); Carboxyhemoglobin 0.5 % THb (0-2.0); Device VENTILATOR; Fractional Inspired Oxygen 30 %; HCO3 ABG 22.6 mEq/l (22.0-26.0); Methemoglobin ABG 0.3 %THb (0-1.5); Modified Allen's Test Unable to perform; Oxygen Content ABG 13.3 %vol (16.0-22.0); Oxygen Saturation ABG 98.2 % (95.0-100.0); Oxyhemoglobin 97.3 % THb (90.0-100.0); PCO2 ABG 32.2 mmHg (35.0-45.0); PO2 ABG 105.7 mmHg (80.0-100.0); PO2 FiO2 Ratio Arterial Blood 3.52 %; Reduced Hemoglobin 1.9 %THb (0-5.0); Site Drawn RIGHT RADIAL; Total Hemoglobin 9.6 g/dL (12.0-18.0); pH ABG 7.464 (7.350-7.450)
[2024-03-31 05:41] LABS: Arterial Blood Gas Minute Volume 6.7 LPM; Arterial Blood Gas PEEP 5 cmH2O; Arterial Blood Gas Vent Mode ASV
[2024-03-31] MEDS: AZTREONAM 2 GM in SODIUM CHLORIDE 0.9% IV 100 ML 200 ML IVPB ×3 (06:20→22:13)
[2024-03-31 06:35] LABS: Basophils Absolute Auto 0.1 K/mm3 (0.0-0.1); Basophils Percent Auto 0.5 % (0.2-1.2); Eosinophils Absolute Auto 0.1 K/mm3 (0-0.3); Eosinophils Percent Auto 0.8 % (0-4.4); Hematocrit 29.8 % (42.0-52.0); Hemoglobin 8.6 g/dL (14.0-18.0); Immature Granulocyte Absolute 0.17 K/mm3 (0.00-0.031); Lymphocytes Absolute Auto 1.45 K/mm3 (0.9-3.2); Lymphocytes Percent Auto 8.2 % (18.3-44.2); Mean Corpuscular HGB Conc 28.9 g/dl (32-36); Mean Corpuscular Volume 97.1 fl (80-100); Monocytes Absolute Auto 0.7 K/mm3 (0.1-0.6); Monocytes Percent Auto 3.9 % (2.6-8.5); Neutrophils Absolute Auto 15.2 K/mm3 (1.3-6.7); Neutrophils Percent Auto 85.6 % (45.5-73.1); Nucleated Red Blood Cells Perc 0.1 % (0.0-0.2); Platelet Count Result 410 k/mm3 (150-375); Red Blood Count 3.07 M/mm3 (4.6-6.20); Red Cell Distribution Width 18.7 % (11.5-14.5); White Blood Count 17.7 K/mm3 (4.5-10.0)
[2024-03-31 06:53] LABS: Alanine Aminotransferase 262 U/L (6-50); Albumin Level 3.1 g/dL (3.5-5.1); Alkaline Phosphatase 132 U/L (38-126); Anion Gap 7 mmol/L (4-12); Aspartate Amino Transferase 175 U/L (17-59); Bilirubin,Total 0.4 mg/dL (0.2-1.3); Blood Urea Nitrogen 105 mg/dL (9-20); Calcium 7.9 mg/dL (8.4-10.2); Carbon Dioxide 23 mmol/L (22-30); Chloride 116 mmol/L (98-107); Estimated CRCL calculation 61 ml/min; Estimated Glomerular Filt Rate 51; Glucose 232 mg/dL (65-110); Magnesium 2.9 mg/dL (1.6-2.3); Phosphorus 4.4 mg/dL (2.5-4.5); Potassium 4.4 mmol/L (3.4-5.0); Sodium 146 mmol/L (137-145)
[2024-03-31 07:25] LABS: Anisocytosis 1+; Hypochromasia 1+; Platelet Estimate Adequate (Adequate); Schistocytes None Seen
--- NOTE | 2024-03-31 08:36 | WPDINTPN ---
Progress Note: A&P Assessment and Plan (1) Acute respiratory failure: Qualifiers: Respiratory failure complication: unspecified whether with hypoxia or hypercapnia Qualified Code(s): J96.00 - Acute respiratory failure, unspecified whether with hypoxia or hypercapnia Code(s): J96.00 - Acute respiratory failure, unspecified whether with hypoxia or hypercapnia Status: Acute Assessment and Plan: ?Acute respiratory failure likely related to large left pleural effusion, hypoxia, encephalopathy, mottling, requiring intubation on 03/15/24. 03/18: Pleural effusion improving clinically and radiographically Microbiology studies: -03/16 Blood cx: no growth to date -03/16 Sputum cx: MRSA growth -03/16 Urine cx no growth -03/15 Left Pleural fluid: no organisms seen, pending cultures and cytology -03/18 Right pleural fluid: no organisms seen. Pathology report without malignancy, pending cytology -03/21: failed extubation and emergently reintubated after desaturating. Follow up chest CT without new cardiopulmonary disease changes, however possible cholecystitis. Received IV methylprednisone after reintubation for any potential airway edema. -Continue Propofol infusion for sedation -Sedation goal RASS of 0 to -2, with daily sedation vacation -Continue CMV mode of ventilation, PEEP 10, FiO2 35% -ABG reviewed.? Vent settings reviewed -continue bronchodilators -responding well to diuretics, continue Lasix 40 mg IV q.a.m. -completed 7 day course of vancomycin, aztreonam -Completed 5 day course of Flagyl -03/25: Patient with fevers, elevated WBC count, 03/16/2024: Sputum cultures grew MRSA, patient was started on linezolid -03/26: Added Levaquin will continue linezolid 03/27: Worsening WBC count, will discontinue Levaquin and started on aztreonam. Continue linezolid 03/28: Fever curve improved, leukocytosis improving 03/29: Fever curve remains improved, leukocytosis improving, will continue linezolid and aztreonam 03/27: Sputum cultures growing MRSA - 03/24 failed weaning trial yesterday as patient developed respiratory distress with increased work of breathing on pressure support after some time. Will attempt a weaning trial again today - 03/25 decrease tidal volume to 420.? Will re-attempt weaning trial again today.? Continue diuretics -03/26: Placed on ASV mode of ventilation this patient was tachypneic and dyssynchronous with the ventilator 03/27: Tolerating ASV mode, will decrease to 90% minute ventilation, as ABGs reviewed, and patient has respiratory alkalosis 03/28: Patient placed on pressure support ventilation 10/20, tolerating well. Had to switch back to CMV mode due to PEG tube placement procedure. Will retry pressure support ventilation -03/29: Placed patient on pressure support ventilation 10/20, tolerating well asked the bedside RN to decrease the propofol, tolerated pressure support 08/17 -03/30: Currently on ASV mode of ventilation, patient is more awake will place him on pressure support ventilation -tolerating ASV mode at night and pressor support ventilation 08/17 Sister has agreed for tracheostomy and PEG tube placement 03/28: PEG tube placed 04/01: Tracheostomy has been scheduled 03/16/2024: CT chest/Abdomen/Pelvis non contrast IMPRESSION: 1. Lines and tubes in expected position. 2. Persistent consolidation in the left mid to lower lung zone correspond to a small left pleural effusion and associated atelectasis on prior CT. Superimposed pneumonia not excludable. 3. Increasing pulmonary vascular congestion with indistinct interstitial and hazy airspace opacity right mid to lower lung zone likely combination of mild pulmonary edema or pneumonia superimposed over a small to moderate-sized right pleural effusion which is much better appreciated on prior CT. 4. Large cardiac silhouette on prior CT correspond to a large pericardial effusion (2) Pleural effusion, left: Code(s): J90 - Pleural effusion, not elsewhere classified
[2024-03-31 09:20] LABS: Glucose Point of Care 199 mg/dl (65-105)
[2024-03-31] MEDS: SCOPOLAMINE 1 MG PATCH 1 PATCH TRANSDERM (09:30)
[2024-03-31] MEDS: PANTOPRAZOLE SODIUM IV 40 MG VIAL IV PUSH ×2 (09:32→20:47)
[2024-03-31] MEDS: ENOXAPARIN 120 MG/0.8 ML SYRINGE 110 MG SUB-Q ×2 (09:37→20:47)
[2024-03-31] MEDS: INSULIN GLARGINE (*BKC) 100 UNITS/ML 50 UNITS SUB-Q ×2 (09:39→21:01)
[2024-03-31] MEDS: METOPROLOL TARTRATE 50 MG TAB PO ×2 (09:42→20:47)
[2024-03-31] MEDS: CLOPIDOGREL BISULFATE 75 MG TABLET PO (09:43)
[2024-03-31] MEDS: ASPIRIN 81 MG CHEWABLE TABLET PO (09:43)
[2024-03-31] MEDS: AMIODARONE HCL 200 MG TABLET 400 MG PO (09:43)
[2024-03-31] MEDS: LINEZOLID 600 MG/300 ML 600 MG/300 ML SOLN 300 MG IVPB ×2 (09:43→20:47)
[2024-03-31] MEDS: TOLNAFTATE 1% POWDER 45 GM BTL 1 APPLIC TOPICAL ×2 (09:47→20:48)
[2024-03-31] MEDS: MINERAL OIL/WHITE PETROLATUM OINTMENT 1 APPLIC EACH EYE ×2 (09:47→20:47)
[2024-03-31] MEDS: CENTRAL LINE FLUSH 10 ML IV PUSH ×3 (09:58→22:14)
[2024-03-31 10:06] LABS: Appearance Urine Turbid (Clear); Bacteria Urine None Seen /hpf; Bilirubin Urine Negative (Negative); Blood Urine 3+ (Negative); Color Urine Yellow (Yellow); Glucose Urine UA Negative (Negative); Granular Casts Urine Present /lpf; Ketones Urine Negative (Negative); Leukocyte Esterase Ur 2+ LEU/UL (Negative); Nitrate Urine Negative (Negative); Non Pathogenic Casts 0-2; Protein Urine 1+ mg/dL (Negative); RBC Urine 51-100 /hpf (0-2); Squamous Epithelial Cell Urine Occasional /hpf (Few); Urobilinogen Urine 0.2 mg/dL (<2.0); WBC Urine 0-5 /hpf (0-3)
[2024-03-31 10:11] LABS: Add Urine Microscopic? YES
[2024-03-31 12:06] LABS: Glucose Point of Care 268 mg/dl (65-105)
[2024-03-31 16:08] LABS: Glucose Point of Care 243 mg/dl (65-105)
[2024-03-31 20:07] LABS: Glucose Point of Care 187 mg/dl (65-105)
[2024-04-01] VITALS (31 sets, daily range): BP systolic 108–154; BP diastolic 26–59; PULSE 64–81; RESP 15–30; TEMP 37.4–37.9; O2SAT 95–100
[2024-04-01] MEDS: PROPOFOL IV EMULSION 100 ML 7.02 MG IV CONT ×2 (00:40→13:21)
[2024-04-01] MEDS: INSULIN ASPART (*BKC) 100 UNITS/ML SUB-Q (00:41)
[2024-04-01 00:50] LABS: Glucose Point of Care 226 mg/dl (65-105)
[2024-04-01 04:28] LABS: Glucose Point of Care 184 mg/dl (65-105)
[2024-04-01 04:32] LABS: Basophils Absolute Auto 0.1 K/mm3 (0.0-0.1); Basophils Percent Auto 0.4 % (0.2-1.2); Eosinophils Absolute Auto 0.2 K/mm3 (0-0.3); Eosinophils Percent Auto 1.3 % (0-4.4); Hematocrit 26.4 % (42.0-52.0); Hemoglobin 7.7 g/dL (14.0-18.0); Immature Granulocyte Absolute 0.21 K/mm3 (0.00-0.031); Immature Granulocyte Percent A 1.2 % (0-0.5); Lymphocytes Absolute Auto 2.11 K/mm3 (0.9-3.2); Lymphocytes Percent Auto 12.4 % (18.3-44.2); Mean Corpuscular HGB Conc 29.2 g/dl (32-36); Mean Corpuscular Hemoglobin 28.1 pg (26-34); Mean Corpuscular Volume 96.4 fl (80-100); Mean Platelet Volume 11.5 fl (7.4-10.4); Monocytes Absolute Auto 0.8 K/mm3 (0.1-0.6); Monocytes Percent Auto 4.4 % (2.6-8.5); Neutrophils Absolute Auto 13.7 K/mm3 (1.3-6.7); Neutrophils Percent Auto 80.3 % (45.5-73.1); Nucleated Red Blood Cells Perc 0.2 % (0.0-0.2); Platelet Count Result 380 k/mm3 (150-375); Red Blood Count 2.74 M/mm3 (4.6-6.20); Red Cell Distribution Width 19.1 % (11.5-14.5)
[2024-04-01 04:53] LABS: Alanine Aminotransferase 209 U/L (6-50); Albumin Level 2.9 g/dL (3.5-5.1); Alkaline Phosphatase 114 U/L (38-126); Anion Gap 6 mmol/L (4-12); Aspartate Amino Transferase 104 U/L (17-59); Bilirubin,Total 0.4 mg/dL (0.2-1.3); Blood Urea Nitrogen 112 mg/dL (9-20); Calcium 8.1 mg/dL (8.4-10.2); Carbon Dioxide 23 mmol/L (22-30); Chloride 118 mmol/L (98-107); Estimated CRCL calculation 61 ml/min; Estimated Glomerular Filt Rate 51; Glucose 199 mg/dL (65-110); Potassium 4.3 mmol/L (3.4-5.0); Sodium 147 mmol/L (137-145)
[2024-04-01 04:56] LABS: Anisocytosis 1+; Hypochromasia 1+; Platelet Estimate Slightly Increased (Adequate); Schistocytes None Seen
[2024-04-01 05:23] LABS: Alveolar/Arterial O2 Gradient 93.9 mmHg; Base Excess ABG -1.8 mEq/l (+/-2.0); Carboxyhemoglobin 0.7 % THb (0-2.0); Fractional Inspired Oxygen 30 %; HCO3 ABG 21.6 mEq/l (22.0-26.0); Methemoglobin ABG 0.3 %THb (0-1.5); Oxygen Content ABG 11.4 %vol (16.0-22.0); Oxygen Saturation ABG 96.8 % (95.0-100.0); Oxyhemoglobin 95.5 % THb (90.0-100.0); PCO2 ABG 31.3 mmHg (35.0-45.0); PO2 ABG 83.2 mmHg (80.0-100.0); PO2 FiO2 Ratio Arterial Blood 2.77 %; Reduced Hemoglobin 3.5 %THb (0-5.0); Total Hemoglobin 8.4 g/dL (12.0-18.0); pH ABG 7.457 (7.350-7.450)
[2024-04-01 05:24] LABS: Device VENTILATOR; Modified Allen's Test Pass; Site Drawn RIGHT RADIAL
[2024-04-01 05:25] LABS: Arterial Blood Gas PEEP 5 cmH2O; Arterial Blood Gas Vent Mode ASV; Peak Inspiratory Pressure 16 cmH2O
[2024-04-01] MEDS: CENTRAL LINE FLUSH 10 ML IV PUSH ×3 (05:28→21:58)
[2024-04-01] MEDS: AZTREONAM 2 GM in SODIUM CHLORIDE 0.9% IV 100 ML 200 ML IVPB ×3 (05:28→21:55)
--- NOTE | 2024-04-01 07:25 | WPDCN ---
Assessment and Plan Assessment and plan (1) Respiratory failure: Code(s): J96.90 - Respiratory failure, unspecified, unspecified whether with hypoxia or hypercapnia Status: Acute Plan This patient has respiratory failure and inability to wean from vent after STEMI, hx of CKD, DM. ENT consulted for tracheostomy which we will place in the OR today. Please obtain and verify consent. Brenton Saenz MD [facility] Data of Consult Date/Time: 04/01/24 07:25 Requesting Physician: Horacio Cleaning MD Primary Care Provider: Chan Rizo, Consult Narrative Reason for consult: trach Narrative: Noel Rodriguez is a 63 year old male with hx of STEMI and inability to extubate due to ventilatory requirements, ENT consulted for tracheostomy. PEG placed previously. Review of Systems Review of Systems: ROS unobtainable: Yes unobtainable due to endotracheal tube PMFSH Past Medical History Medical History ADHD (attention deficit hyperactivity disorder) Cellulitis of both feet Chronic kidney disease, stage 3 Baseline creatinine between 1.5 and 1.60. Chronic pain syndrome On long-term opiates. Coronary artery disease With history of stents. Degenerative disc disease Diabetic foot infection Gangrene of toe of right foot GERD (gastroesophageal reflux disease) History of DVT of lower extremity Hospital discharge follow-up Hyperlipidemia Hypertension Insulin dependent type 2 diabetes mellitus Myocardial infarction Osteoarthritis Peripheral arterial disease Status post right lower extremity revascularization per Dr. Altman. Shortness of breath on exertion Tobacco abuse Surgical History Surgical History H/O cardiac catheterization History of left-sided carotid endarterectomy History of revascularization procedure of lower extremity Right lower extremity angioplasty and stent per Dr. Hurt. Hx of right BKA Family History Family History Father , age 91 CAD Acute myocardial infarction Mother , age 85 CVA Cerebrovascular accident Other Family history of arthritis Family history of cardiovascular disease Family history of chronic obstructive pulmonary disease Family history of mental disorder Hypertension Social History Social History Social History: The patient is currently at [facility]. He designates his cousin Jaskaran Carr as his surrogate decision-maker and he wishes to be a full code. 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 He smokes between 5 and 20 cigarettes and 20 cigarettes/day. No drug use. He has no children. He has never been . Smoking packs per day: 0.5 Smoking cigarettes per day: 10.0 Years smoked: 44 Smoking pack-years: 22.00 Smoking status: Current every day smoker Second hand tobacco smoke exposure: Yes Additional smoking assessment comments: patient stated i smoke one cigar every 6 hours Alcohol intake: former Substance use: current Substance use type: does not use Other substance usage details: tried marijuana for pain relief 03/16/2020 Last use: 03/16/2020 Do You Feel Safe in your Home?: Yes Lack of Transportation: No Lack of Food: Never True Current Housing: I Have Housing Concerned About Future Housing: No Difficulty Paying Gas/Electric Bills: No Difficulty Paying for Meds: No Currently Unemployed: No Education: Bachelor's Degree Difficulty w/ Childcare or Family Care: No Gender identity (if verbalized by the patient): Male Spiritual care concerns: No Agree to blood products: Yes Meds Home Medications and Allergies Home Medications Medication Instructions Recorded Confirmed Type cyanocobalamin (vitamin B-12) 1,000 mcg PO DAILY
[2024-04-01 07:51] LABS: Glucose Point of Care 173 mg/dl (65-105)
[2024-04-01] MEDS: ASPIRIN 81 MG CHEWABLE TABLET PO (08:22)
[2024-04-01] MEDS: AMIODARONE HCL 200 MG TABLET 400 MG PO (08:22)
[2024-04-01] MEDS: TOLNAFTATE 1% POWDER 45 GM BTL 1 APPLIC TOPICAL ×2 (08:23→20:12)
[2024-04-01] MEDS: CLOPIDOGREL BISULFATE 75 MG TABLET PO (08:23)
[2024-04-01] MEDS: MINERAL OIL/WHITE PETROLATUM OINTMENT 1 APPLIC EACH EYE ×2 (08:23→20:13)
[2024-04-01] MEDS: PANTOPRAZOLE SODIUM IV 40 MG VIAL IV PUSH ×2 (08:23→20:12)
[2024-04-01] MEDS: EPOETIN ALFA-EPBX 10,000 UNITS/ML VIAL 10000 UNITS SUB-Q (08:23)
[2024-04-01] MEDS: METOPROLOL TARTRATE 50 MG TAB PO ×2 (08:23→20:12)
--- NOTE | 2024-04-01 09:34 | WPDINTPN ---
Progress Note: A&P Assessment and Plan (1) Acute respiratory failure: Qualifiers: Respiratory failure complication: unspecified whether with hypoxia or hypercapnia Qualified Code(s): J96.00 - Acute respiratory failure, unspecified whether with hypoxia or hypercapnia Code(s): J96.00 - Acute respiratory failure, unspecified whether with hypoxia or hypercapnia Status: Acute Assessment and Plan: ?Acute respiratory failure likely related to large left pleural effusion, hypoxia, encephalopathy, mottling, requiring intubation on 03/15/24. 03/18: Pleural effusion improving clinically and radiographically Microbiology studies: -03/16 Blood cx: no growth to date -03/16 Sputum cx: MRSA growth -03/16 Urine cx no growth -03/15 Left Pleural fluid: no organisms seen, pending cultures and cytology -03/18 Right pleural fluid: no organisms seen. Pathology report without malignancy, pending cytology -03/21: failed extubation and emergently reintubated after desaturating. Follow up chest CT without new cardiopulmonary disease changes, however possible cholecystitis. Received IV methylprednisone after reintubation for any potential airway edema. -Continue Propofol infusion for sedation -Sedation goal RASS of 0 to -2, with daily sedation vacation -Continue CMV mode of ventilation, PEEP 10, FiO2 35% -ABG reviewed.? Vent settings reviewed -continue bronchodilators -responding well to diuretics, continue Lasix 40 mg IV q.a.m. -completed 7 day course of vancomycin, aztreonam -Completed 5 day course of Flagyl -03/25: Patient with fevers, elevated WBC count, 03/16/2024: Sputum cultures grew MRSA, patient was started on linezolid -03/26: Added Levaquin will continue linezolid 03/27: Worsening WBC count, will discontinue Levaquin and started on aztreonam. Continue linezolid 03/28: Fever curve improved, leukocytosis improving 03/29: Fever curve remains improved, leukocytosis improving, will continue linezolid and aztreonam 03/27: Sputum cultures growing MRSA - 03/24 failed weaning trial yesterday as patient developed respiratory distress with increased work of breathing on pressure support after some time. Will attempt a weaning trial again today - 03/25 decrease tidal volume to 420.? Will re-attempt weaning trial again today.? Continue diuretics -03/26: Placed on ASV mode of ventilation this patient was tachypneic and dyssynchronous with the ventilator 03/27: Tolerating ASV mode, will decrease to 90% minute ventilation, as ABGs reviewed, and patient has respiratory alkalosis 03/28: Patient placed on pressure support ventilation 12/8, tolerating well. Had to switch back to CMV mode due to PEG tube placement procedure. Will retry pressure support ventilation -03/29: Placed patient on pressure support ventilation 12/8, tolerating well asked the bedside RN to decrease the propofol, tolerated pressure support 10/ -03/30 and 03/31: Currently on ASV mode of ventilation, patient is more awake will place him on pressure support ventilation -tolerating ASV mode at night and pressor support ventilation 08/17 -patient to get tracheostomy today, will keep on ASV mode of ventilation now and will switch to CMV mode when he goes to the OR Sister has agreed for tracheostomy and PEG tube placement 03/28: PEG tube placed 04/01: Tracheostomy has been scheduled for today 03/16/2024: CT chest/Abdomen/Pelvis non contrast IMPRESSION: 1. Lines and tubes in expected position. 2. Persistent consolidation in the left mid to lower lung zone correspond to a small left pleural effusion and associated atelectasis on prior CT. Superimposed pneumonia not excludable. 3. Increasing pulmonary vascular congestion with indistinct interstitial and hazy airspace opacity right mid to lower lung zone likely combination of mild pulmonary edema or pneumonia superimposed over a small to moderate-sized right pleural effusion which is much better appreciated on prior CT. 4. Large cardiac silhouette on p
--- NOTE | 2024-04-01 09:37 | P.OP_ITS ---
Procedure Note - Detailed Date of Procedure 04/01/24 Pre-op Diagnosis Respiratory failure Post-op Diagnosis Same Procedure Performed Tracheostomy Surgeon Brenton Saenz MD Anesthesia General Indications Respiratory failure Findings 8-0 DCT shiley placed Description of Procedure The patient was previously consented by family. They were then brought back to the OR and induced with anesthesia through the endotracheal tube. They were then transferred to the OR table. A shoulder roll was placed. Landmarks were palpated and marked. A timeout was performed. An 8-0 DCT cuffed shiley tracheostomy tube was selected and tested. The patient was prepped and drapped in the usual sterile fashion for an tracheotostomy. A horizontal incision was made along the marked line 1-2 cm above the suprasternal notch. Dissection was carried down in the midline through subcutaneous tissues using a hemostat and retraction by vein retractor and then [employer] retractors. The strap muscles were identified and divided using a co mbination of blunt dissection through the median raphe and electrocautery. The thyroid isthmus was encounted and divided using electrocautery and retracted. The trachea was encountered. A cricoid hook was placed to stabilize and elevate the trachea. The tracheostomy tube was tested on the field and showed no leak. After confirmation with anesthesia and the die maintenance technician ensuring FiO2 was acceptable an #11 blade was used to make a horizontal incision into the trachea. Heavy scissors were used to make parallel vertical cuts laterally through the second ring. The endotracheal tube was pulled. The tracheostomy tube was placed and successfully hooked up the circuit. The airway was stabilized and verified by anesthesia. The cricoid/tracheal hook was carefully removed. The tracheotomy tube was then secured with 0 silk sutures placed at each corner of the trach tube and the underlying skin. A tracheal tie was then placed. This ended this portion of the procedure and care of the patient was returned to anesthesia who recovered him in the ICU. Brenton Saenz M.D. Estimated Blood Loss 0 Urine Output 600 Drains No Packing No Pathology None sent Complications No immediate complications Condition Stable Disposition ICU
--- NOTE | 2024-04-01 09:37 | WPDHPUPDATE1 ---
History and Physical Update Update Date/Time: 04/01/24 09:37 History and Physical has been reviewed, including an updated exam of the patient. There are NO changes in the patient's condition. Risks, benefits, and alternatives have been discussed and questions answered. Patient agrees to proceed with procedure.
--- NOTE | 2024-04-01 10:08 | WPDANESEPPF ---
Anes - Initial Pre Proc Eval Procedure: Operation Date: 03/04/24 11:30 Proposed Procedures p Left Heart Cath - Horacio Cleaning MD Operation Date: 03/11/24 13:00 Proposed Procedures p Electrical Cardioversion - Horacio Cleaning MD Operation Date: 03/28/24 14:30 Proposed Procedures p Percutaneous Endoscopic Gastrostomy - Edson Aguirre MD Operation Date: 04/01/24 11:00 Proposed Procedures p Tracheostomy - Brenton Saenz MD Date/Time: 04/01/24 10:08 Surgeon: Horacio Cleaning MD Pre Op Diagnosis: Inferolateral ST Elevation CT Patient Data Age: 63 Gender: M Height: 1.78 m Weight: 113 kg Last Vital Signs Temp 99.8 F H 04/01/24 08:00 Pulse 78 04/01/24 08:23 Resp 24 H 04/01/24 08:00 BP 141/46 H 04/01/24 08:00 Pulse Ox 97 04/01/24 08:16 O2 Del Method Mechanical Ventilation 04/01/24 08:16 O2 Flow Rate 8 03/21/24 09:35 FiO2 30 04/01/24 08:16 Allergies Allergy/AdvReac Type Severity Reaction Status Date / Time amoxicillin Allergy Severe shortness Verified 01/27/21 13:10 of breath Penicillins Allergy Severe Anaphylactic Verified 01/27/21 13:10 Shock trimethoprim Allergy Intermediate Unknown Verified 01/27/21 13:10 cefuroxime Allergy Unknown Verified 08/04/22 16:29 cephalexin Allergy Unknown Verified 08/04/22 16:29 clindamycin Allergy Unknown Verified 08/04/22 16:29 gabapentin Allergy Unknown Verified 08/04/22 16:29 Home Medications Medication Instructions Recorded Confirmed Type cyanocobalamin (vitamin B-12) 1,000 mcg PO DAILY 11/08/19 03/04/24 History 2,500 mcg tablet insulin syr/ndl U100 half liz 0.3 #100 ea 12/12/19 03/04/24 Rx mL 31 gauge x 5/16 (BD Insulin Syringe Ultra-Fine (half unit)) insulin syringe-needle U-100 1/2 #90 ea 03/05/20 03/04/24 History mL 31 gauge x 15/64 nitroglycerin 0.4 mg sublingual 0.4 mg sublingual Q5M PRN Chest 03/05/20 03/04/24 History tablet Pain pen needle, diabetic 31 gauge x #30 ea 03/05/20 03/04/24 History 3/16 insulin glargine 100 unit/mL (3 See Rx Instructions .Route 03/13/20 03/04/24 Rx mL) subcutaneous pen (Basaglar .COMPLEX #15 mL KwikPen U-100 Insulin) sodium chloride 0.65 % nasal spray 2 spray intranasal Q4H PRN Nasal 03/17/20 03/04/24 History aerosol (Saline Nasal) Congestion polyethylene glycol 3350 17 gram 17 g PO QAM PRN Constipation 30 03/25/20 03/04/24 Rx oral powder packet (Miralax) days #30 ea blood-glucose meter #1 ea 04/23/20 03/04/24 Rx lisinopril 10 mg tablet See Rx Instructions .Route 10/26/21 03/04/24 Rx .COMPLEX #90 tabs aspirin 81 mg tablet,delayed 81 mg PO QAM #30 tabs 06/19/23 03/04/24 Rx release metoprolol tartrate 25 mg tablet 25 mg PO Q12HR #60 tabs 06/19/23 03/04/24 Rx orphenadrine citrate 100 mg 100 mg PO Q12H PRN spasms #14 tabs 07/09/23 03/04/24 Rx tablet,extended release Benadryl 50 mg PO Q6H PRN Itching 11/15/23 03/04/24 History GlycoLax 17 g PO DAILY PRN Constipation 11/15/23 03/04/24 History Senna Plus 1 tablet PO DAILY PRN Constipation 11/15/23 03/04/24 History bupropion HCl 100 mg tablet,12 hr 100 mg PO DAILY 11/15/23 03/04/24 History sustained-release clotrimazole 1 % topical cream 1 applic topical BID 11/15/23 03/04/24 History insulin lispro 100 unit/mL 17 unit subcut AC 11/15/23 03/04/24 History subcutaneous solution (Admelog U-100 Insulin lispro) magnesium oxide 400 mg PO DAILY 11/15/23 03/04/24 History melatonin 10 mg PO HS PRN Insomnia 11/15/23 03/04/24 History metoclopramide HCl 10 mg tablet 10 mg PO Q6H PRN Nausea 11/15/23 03/04/24 History pregabalin 150 mg capsule 150 mg PO TID 11/15/23 03/04/24 History tramadol 50 mg tablet 50 mg PO Q12H PRN Pain 11/15/23 03/04/24 History albuterol sulfate 90 mcg/actuation 2 puff inhalation Q4H PRN 03/04/24 03/04/24 History aerosol inhaler Shortness Of Breath Or Wheezing bisacodyl 10 mg rectal suppository 10 mg RECTAL DAILY PRN Constipation 03/04/24 03/04/24 History
[2024-04-01] MEDS: LIDO 1%/EPINEPHRINE 1:100,000 50 ML VIAL INFILTRATE (10:31)
--- NOTE | 2024-04-01 11:19 | PCNFU ---
Nutrition Follow-Up Complete: Increased protein energy needs related to mechanical ventilation as evidenced by NPO, need for full tube feeding Meet estimated protein energy needs - Goal being met with tube feeding Goal: Pt current nutrition is Glucerna 1.2 @ goal rate 70 ml/h - ON HOLD for tracheostomy placement. Nutrition recommendation: Resume tube feeding orders after procedure. Glucerna 1.2 @ goal rate 70 ml/h with Prosource TF BID Last recorded weight is 113 kg. Bowel Motility: BM today 04/01/24 Labs Reviewed: Hgb 7.7, Hct 26/4, Alb 2.9, Na 147, GFR 51, BUN 1.4, Glu 173 Meds Noted: Propofol @ 7 ml/h: 185 kcal. Reglan, protonix, lasix, lantus, miralax, senna Skin: Deep tissue coccyx Additional Notes: Tube feeding on hold for tracheostomy today. Tolerating tube feeds. No change to to nutrition care plan. Continue to monitor. Monitoring tube feeding tolerance, weights, labs, output, plan of care Follow in rounds, reassess Monday and Monday per policy
--- NOTE | 2024-04-01 11:46 | PM.PNCARD ---
Progress Note: A&P Assessment and Plan (1) ST elevation (STEMI) myocardial infarction: Code(s): I21.3 - ST elevation (STEMI) myocardial infarction of unspecified site Status: Acute Assessment and Plan: History of multivessel coronary disease admitted to the hospital on 03/04/[address] [place]. Underwent successful percutaneous revascularization of his mid circumflex which was technically challenging because of his extensive vascular disease and difficult vascular access. Procedure was ultimately done with a good angiographic result. Previous stented vessels in his LAD and right mid right coronary were remaining patent. He has extensive peripheral vascular disease and has undergone right lower extremity amputation. Continue Clopidogrel 75 mg daily, Aspirin 81 mg daily, high intensity statin (2) Acute respiratory failure: Qualifiers: Respiratory failure complication: unspecified whether with hypoxia or hypercapnia Qualified Code(s): J96.00 - Acute respiratory failure, unspecified whether with hypoxia or hypercapnia Code(s): J96.00 - Acute respiratory failure, unspecified whether with hypoxia or hypercapnia Status: Acute Assessment and Plan: On mechanical ventilation, but he cannot be weaned from the vent. S/p trach placement today. (3) Atrial fibrillation with RVR: Code(s): I48.91 - Unspecified atrial fibrillation Status: Acute Assessment and Plan: S/p DCCV earlier during his hospitalization. Was not on anticoagulation earlier in hospitalization due to anemia requiring transfusion, however, has been receiving therapeutic Lovenox and tolerating thus far. Held for trach placement. Will eventually switch to NOAC prior to discharge. Continue Amiodarone and Metoprolol. (4) Acute renal failure superimposed on stage 3 chronic kidney disease: Code(s): N17.9 - Acute kidney failure, unspecified; N18.30 - Chronic kidney disease, stage 3 unspecified Status: Acute Assessment and Plan: Multifactorial secondary to acute [place], hypotension, contrast exposure. (5) Essential (primary) hypertension: Code(s): I10 - Essential (primary) hypertension Status: Chronic Assessment and Plan: Stable (6) Insulin dependent type 2 diabetes mellitus: Code(s): E11.9 - Type 2 diabetes mellitus without complications; Z79.4 - lobsterman (current) use of insulin Status: Acute Assessment and Plan: Management per hospitalist service (7) Peripheral arterial disease: Code(s): I73.9 - Peripheral vascular disease, unspecified Status: Acute Assessment and Plan: On ASA, Plavix, statin (8) Dyslipidemia: Code(s): E78.5 - Hyperlipidemia, unspecified Status: Acute Assessment and Plan: Continue high intensity statin (9) CHF (congestive heart failure): Code(s): I50.9 - Heart failure, unspecified Status: Acute Assessment and Plan: Stable at this point Subjective Date/time seen: 04/01/24 11:46 Interval history: Follow-up visit in this 63-year-old man with diffuse coronary and peripheral arterial disease. Presented to the hospital on 03/04/2024 with some neck pain and altered mental status. STEMI was declared because of inferolateral ST segment elevation. High-grade stenosis in the trunk of the circumflex was identified and treated with PCI as detailed in the catheterization lab report. Previous LAD and right coronary stents were patent. Patient remains hospitalized was having difficulty with recurrence of atrial fibrillation last evening. This was a accompanied by hypotension requiring transfer back to the ICU. Likely this is a combination of his atrial fib other medications that were on board for hypertension. He is receiving intravenous amiodarone at this time and persisting atrial fib with heart rate 100-110. He is resting relatively comfortably upon awakening he offers no specific com
[2024-04-01 12:04] LABS: Glucose Point of Care 123 mg/dl (65-105)
[2024-04-01 13:29] LABS: Hematocrit 26.5 % (42.0-52.0); Hemoglobin 7.8 g/dL (14.0-18.0); Mean Corpuscular HGB Conc 29.4 g/dl (32-36); Mean Corpuscular Hemoglobin 28.9 pg (26-34); Mean Corpuscular Volume 98.1 fl (80-100); Mean Platelet Volume 11.5 fl (7.4-10.4); Platelet Count Result 383 k/mm3 (150-375); Red Cell Distribution Width 19.2 % (11.5-14.5); White Blood Count 18.8 K/mm3 (4.5-10.0)
[2024-04-01 16:03] LABS: Glucose Point of Care 144 mg/dl (65-105)
[2024-04-01 19:55] LABS: Glucose Point of Care 163 mg/dl (65-105)
[2024-04-01] MEDS: ACETAMINOPHEN 325 MG TABLET 650 MG PO (20:12)
[2024-04-01] MEDS: INSULIN GLARGINE (*BKC) 100 UNITS/ML 50 UNITS SUB-Q (20:13)
[2024-04-02] VITALS (26 sets, daily range): BP systolic 115–158; BP diastolic 45–77; PULSE 65–88; RESP 16–28; TEMP 37.2–37.7; O2SAT 98–100
[2024-04-02] MEDS: PROPOFOL IV EMULSION 100 ML 7.02 MG IV CONT (01:36)
[2024-04-02 03:37] LABS: Glucose Point of Care 147 mg/dl (65-105)
[2024-04-02 03:37] LABS: Glucose Point of Care 162 mg/dl (65-105)
[2024-04-02] MEDS: AZTREONAM 2 GM in SODIUM CHLORIDE 0.9% IV 100 ML 200 ML IVPB ×2 (05:17→13:51)
[2024-04-02] MEDS: CENTRAL LINE FLUSH 10 ML IV PUSH ×3 (05:17→21:19)
[2024-04-02 06:07] LABS: Basophils Absolute Auto 0.1 K/mm3 (0.0-0.1); Basophils Percent Auto 0.5 % (0.2-1.2); Eosinophils Absolute Auto 0.3 K/mm3 (0-0.3); Eosinophils Percent Auto 1.8 % (0-4.4); Hematocrit 24.9 % (42.0-52.0); Hemoglobin 7.2 g/dL (14.0-18.0); Immature Granulocyte Absolute 0.28 K/mm3 (0.00-0.031); Immature Granulocyte Percent A 1.7 % (0-0.5); Lymphocytes Absolute Auto 1.99 K/mm3 (0.9-3.2); Lymphocytes Percent Auto 11.9 % (18.3-44.2); Mean Corpuscular HGB Conc 28.9 g/dl (32-36); Mean Corpuscular Hemoglobin 28.8 pg (26-34); Mean Corpuscular Volume 99.6 fl (80-100); Mean Platelet Volume 11.1 fl (7.4-10.4); Monocytes Absolute Auto 0.9 K/mm3 (0.1-0.6); Monocytes Percent Auto 5.5 % (2.6-8.5); Neutrophils Absolute Auto 13.2 K/mm3 (1.3-6.7); Neutrophils Percent Auto 78.6 % (45.5-73.1); Nucleated Red Blood Cells Perc 0.5 % (0.0-0.2); Platelet Count Result 380 k/mm3 (150-375); Red Cell Distribution Width 19.6 % (11.5-14.5); White Blood Count 16.8 K/mm3 (4.5-10.0)
[2024-04-02 06:20] LABS: Alanine Aminotransferase 177 U/L (6-50); Albumin Level 2.8 g/dL (3.5-5.1); Alkaline Phosphatase 96 U/L (38-126); Anion Gap 6 mmol/L (4-12); Aspartate Amino Transferase 74 U/L (17-59); Bilirubin,Total 0.3 mg/dL (0.2-1.3); Blood Urea Nitrogen 110 mg/dL (9-20); Calcium 8.1 mg/dL (8.4-10.2); Carbon Dioxide 22 mmol/L (22-30); Chloride 119 mmol/L (98-107); Estimated CRCL calculation 65 ml/min; Estimated Glomerular Filt Rate 56; Glucose 133 mg/dL (65-110); Magnesium 2.9 mg/dL (1.6-2.3); Phosphorus 4.5 mg/dL (2.5-4.5); Potassium 4.7 mmol/L (3.4-5.0); Sodium 147 mmol/L (137-145)
[2024-04-02 07:32] LABS: Hypochromasia 1+
[2024-04-02 07:33] LABS: Platelet Estimate Slightly Increased (Adequate); Schistocytes None Seen
[2024-04-02] MEDS: PANTOPRAZOLE SODIUM IV 40 MG VIAL IV PUSH ×2 (08:16→21:19)
[2024-04-02] MEDS: CLOPIDOGREL BISULFATE 75 MG TABLET PO (08:16)
[2024-04-02] MEDS: METOPROLOL TARTRATE 50 MG TAB PO ×2 (08:16→21:18)
[2024-04-02] MEDS: ASPIRIN 81 MG CHEWABLE TABLET PO (08:16)
[2024-04-02] MEDS: AMIODARONE HCL 200 MG TABLET 400 MG PO (08:16)
[2024-04-02] MEDS: INSULIN GLARGINE (*BKC) 100 UNITS/ML 50 UNITS SUB-Q (08:17)
[2024-04-02] MEDS: MINERAL OIL/WHITE PETROLATUM OINTMENT 1 APPLIC EACH EYE ×2 (08:20→20:38)
[2024-04-02] MEDS: TOLNAFTATE 1% POWDER 45 GM BTL 1 APPLIC TOPICAL ×2 (08:21→21:09)
[2024-04-02] MEDS: ACETAMINOPHEN 325 MG TABLET 650 MG PO (08:33)
[2024-04-02 08:46] LABS: Glucose Point of Care 136 mg/dl (65-105)
--- NOTE | 2024-04-02 09:18 | WPDINTPN ---
Progress Note: A&P Assessment and Plan (1) Acute respiratory failure: Qualifiers: Respiratory failure complication: unspecified whether with hypoxia or hypercapnia Qualified Code(s): J96.00 - Acute respiratory failure, unspecified whether with hypoxia or hypercapnia Code(s): J96.00 - Acute respiratory failure, unspecified whether with hypoxia or hypercapnia Status: Acute Assessment and Plan: ?Acute respiratory failure likely related to large left pleural effusion, hypoxia, encephalopathy, mottling, requiring intubation on 03/15/24. 03/18: Pleural effusion improving clinically and radiographically -03/21: failed extubation and emergently reintubated after desaturating. Follow up chest CT without new cardiopulmonary disease changes, however possible cholecystitis. Received IV methylprednisone after reintubation for any potential airway edema. -Continue Propofol infusion for sedation -Sedation goal RASS of 0 to -2, with daily sedation vacation -ABG reviewed.? Vent settings reviewed -continue bronchodilators - 03/24 failed weaning trial yesterday as patient developed respiratory distress with increased work of breathing on pressure support after some time. Will attempt a weaning trial again today - 03/25 decrease tidal volume to 420.? Will re-attempt weaning trial again today.? Continue diuretics -03/26: Placed on ASV mode of ventilation this patient was tachypneic and dyssynchronous with the ventilator 03/27: Tolerating ASV mode, will decrease to 90% minute ventilation, as ABGs reviewed, and patient has respiratory alkalosis 03/28: Patient placed on pressure support ventilation 10/20, tolerating well. Had to switch back to CMV mode due to PEG tube placement procedure. Will retry pressure support ventilation -03/29: Placed patient on pressure support ventilation 10/20, tolerating well asked the bedside RN to decrease the propofol, tolerated pressure support 08/17 -03/30 and 03/31: Currently on ASV mode of ventilation, patient is more awake will place him on pressure support ventilation -tolerating ASV mode at night and pressor support ventilation 08/17 -patient to get tracheostomy today, will keep on ASV mode of ventilation now and will switch to CMV mode when he goes to the OR Sister has agreed for tracheostomy and PEG tube placement 03/28: PEG tube placed 04/01: Tracheostomy done 04/02 will try PSV again today this morning after sedation holiday 03/16/2024: CT chest/Abdomen/Pelvis non contrast IMPRESSION: 1. Lines and tubes in expected position. 2. Persistent consolidation in the left mid to lower lung zone correspond to a small left pleural effusion and associated atelectasis on prior CT. Superimposed pneumonia not excludable. 3. Increasing pulmonary vascular congestion with indistinct interstitial and hazy airspace opacity right mid to lower lung zone likely combination of mild pulmonary edema or pneumonia superimposed over a small to moderate-sized right pleural effusion which is much better appreciated on prior CT. 4. Large cardiac silhouette on prior CT correspond to a large pericardial effusion (2) Sepsis: Code(s): A41.9 - Sepsis, unspecified organism Status: Acute Assessment and Plan: Microbiology studies: -03/16 Blood cx: no growth to date -03/16 Sputum cx: MRSA growth -03/16 Urine cx no growth -03/15 Left Pleural fluid: no organisms seen, pending cultures and cytology -03/18 Right pleural fluid: no organisms seen. Pathology report without malignancy, pending cytology Patient completed a 7 day course of vancomycin and aztreonam. After holding antibiotics patient's fever returned and patient was restarted on linezolid 03/27: Worsening WBC count, will discontinue Levaquin and started on aztreonam. Continue linezolid 03/27: Sputum cultures again growing MRSA He completed a 14 days course of vancomycin and linezolid. He is currently on aztreonam. Will remove Ayoub catheter If process will consider extended pat
--- NOTE | 2024-04-02 09:45 | P.PNNP_ITS ---
Progress Note: A&P Assessment and Plan (1) SIM (acute kidney injury): Code(s): N17.9 - Acute kidney failure, unspecified Status: Acute Assessment and Plan: * relatively stable if not close to baseline * suspect initial insult due to: * acute GA * concurrent ETHAN-I LINER REROLL TENDER * prerenal factors(?) * cannot r/o an element of CKD progression * second insult likely due to * fluctuating hypotension/hemodynamic instability * fluctuating H/H * Afib with RVR * contrast (cardiac cath + CT scan) * UTI * evaluation to date noted: * urine eosinophil negative * urine electrolytes prerenal * mild proteinuria * CPK normal * renal ultrasound c/w CKD * creatinine is actually lower than his baseline * probably because of his weakness and bed-bound status, his creatinine turned over is low * BUN elevated -- suspect due to catabolic state * continue follow trend of repeat labs and UOP (2) Chronic kidney disease, stage 3: Code(s): N18.3 - Chronic kidney disease, stage 3 (moderate) Status: Chronic Assessment and Plan: * baseline creatinine seems to run ~ 1.4 - 1.7mg/dl * this would cause him to fluctuate between CKD stage 3A and stage 3B * likely secondary to hypertension, diabetes, severe vascular disease (CAD + PAD + hyperlipidemia), and age (3) Acute respiratory failure: Qualifiers: Respiratory failure complication: unspecified whether with hypoxia or hypercapnia Qualified Code(s): J96.00 - Acute respiratory failure, unspecified whether with hypoxia or hypercapnia Code(s): J96.00 - Acute respiratory failure, unspecified whether with hypoxia or hypercapnia Status: Acute Assessment and Plan: * suspect multifactorial etiology: * large left pleural effusion/ whiteout of left hemithorax * hypoxia * AMS/encephalopathy * weakness * renal failure * intubated on 03/15/24; extubated earlier on 03/21 but then quickly re-intubated * off diuretics due to rising BUN * noted plan for tracheostomy and G-tube placement * G-tube placed on 03/28 * tracheostomy on 04/01 * continue supportive care (4) Pleural effusion, left: Code(s): J90 - Pleural effusion, not elsewhere classified Status: Acute Assessment and Plan: * as noted by recent CXR * contributing component to #4 * s/p left thoracentesis by IR on 03/15/24 * pleural fluid studies/analysis noted * on antibiotics as above (5) ST elevation (STEMI) myocardial infarction: Code(s): I21.3 - ST elevation (STEMI) myocardial infarction of unspecified site Status: Acute Assessment and Plan: * admission EKG showed inferior lateral ST-elevation [place] * s/p cardiac cath with PTCA/PCI with KENYA x 1 to mid RCA which was 90% blocked * no LV gram was performed due to renal dysfunction * Cardiology following * Echo results noted * remains on DAPT and statin (6) Hypernatremia: Code(s): E87.0 - Hyperosmolality and hypernatremia Status: Acute Assessment and Plan: * due to free water deficit and insensible losses * continue free water tube flushes with titration as needed (7) Atrial fibrillation: Code(s): I48.91 - Unspecified atrial fibrillation Status: Acute Assessment and Plan: * on amiodarone * s/p cardioversion on 03/11 * on anticoagulation * Cardiology following (8) Anemia: Code(s): D64.9 - Anemia, unspecified Status: Acute Assessment and Plan: * d
--- NOTE | 2024-04-02 09:45 | PM.PNNEP ---
Progress Note: A&P Assessment and Plan (1) SIM (acute kidney injury): Code(s): N17.9 - Acute kidney failure, unspecified Status: Acute Assessment and Plan: relatively stable if not close to baseline suspect initial insult due to: acute NC concurrent ETHAN-I SHAMPOOER prerenal factors(?) cannot r/o an element of CKD progression second insult likely due to fluctuating hypotension/hemodynamic instability fluctuating H/H Afib with RVR contrast (cardiac cath + CT scan) UTI evaluation to date noted: urine eosinophil negative urine electrolytes prerenal mild proteinuria CPK normal renal ultrasound c/w CKD creatinine is actually lower than his baseline probably because of his weakness and bed-bound status, his creatinine turned over is low BUN elevated -- suspect due to catabolic state continue follow trend of repeat labs and UOP (2) Chronic kidney disease, stage 3: Code(s): N18.3 - Chronic kidney disease, stage 3 (moderate) Status: Chronic Assessment and Plan: baseline creatinine seems to run ~ 1.4 - 1.7mg/dl this would cause him to fluctuate between CKD stage 3A and stage 3B likely secondary to hypertension, diabetes, severe vascular disease (CAD + PAD + hyperlipidemia), and age (3) Acute respiratory failure: Qualifiers: Respiratory failure complication: unspecified whether with hypoxia or hypercapnia Qualified Code(s): J96.00 - Acute respiratory failure, unspecified whether with hypoxia or hypercapnia Code(s): J96.00 - Acute respiratory failure, unspecified whether with hypoxia or hypercapnia Status: Acute Assessment and Plan: suspect multifactorial etiology: large left pleural effusion/ whiteout of left hemithorax hypoxia AMS/encephalopathy weakness renal failure intubated on 03/15/24; extubated earlier on 03/21 but then quickly re-intubated off diuretics due to rising BUN noted plan for tracheostomy and G-tube placement G-tube placed on 03/28 tracheostomy on 04/01 continue supportive care (4) Pleural effusion, left: Code(s): J90 - Pleural effusion, not elsewhere classified Status: Acute Assessment and Plan: as noted by recent CXR contributing component to #4 s/p left thoracentesis by IR on 03/15/24 pleural fluid studies/analysis noted on antibiotics as above (5) ST elevation (STEMI) myocardial infarction: Code(s): I21.3 - ST elevation (STEMI) myocardial infarction of unspecified site Status: Acute Assessment and Plan: admission EKG showed inferior lateral ST-elevation NC s/p cardiac cath with PTCA/PCI with KENYA x 1 to mid RCA which was 90% blocked no LV gram was performed due to renal dysfunction Cardiology following Echo results noted remains on DAPT and statin (6) Hypernatremia: Code(s): E87.0 - Hyperosmolality and hypernatremia Status: Acute Assessment and Plan: due to free water deficit and insensible losses continue free water tube flushes with titration as needed (7) Atrial fibrillation: Code(s): I48.91 - Unspecified atrial fibrillation Status: Acute Assessment and Plan: on amiodarone s/p cardioversion on 03/11 on anticoagulation Cardiology following (8) Anemia: Code(s): D64.9 - Anemia, unspecified Status: Acute Assessment and Plan: due in part to CKD and acute illness follow trend of H/H on Epogen (9) Insulin dependent type 2 diabetes mellitus: Code(s): E11.9 - Type 2 diabetes mellitus without complications; Z79.4 - superintendent container terminal (current) use of insulin Status: Acute Assessment and Plan: follow accu-cheks glycemic control per hospitalist/glass breaker Will continue to follow from a distance. Subjective Date/time seen: 04/02/24 09:45 Interval history: Follow-up for acute kidney injury/acute renal failure on chronic kidney diseas
--- NOTE | 2024-04-02 10:08 | PCFNICU ---
ICU Rounding Note: Pt current nutrition is Glucerna 1.2 at 70 ml/hr with Prosource BID. Last recorded weight is 111 kg, stable Bowel Motility: +BM reported 04/01 Labs Reviewed:Na 147,Glu 133, Hct 24.9,Hgb 7.2 Meds Noted:Lantus, Senokot,Crestor, NovoLog Skin: Deep Tissue-Coccyx. Additional Notes: Patient current with Trach and PEG. Awaiting LTAC placement. Tube feedings are being tolerated of Glucerna 1.2 at 70 ml/hr with Prosource BID providing 2008 kcal/132 gm protein/1240 ml water. Flush increased to 150 ml q 4 hours / to Na 147. Agree with diet orders. Monitoring tube feeding tolerance, weights, labs, output, plan of care Follow in rounds, reassess Monday and Monday per policy.
--- NOTE | 2024-04-02 10:11 | PM.PNCARD ---
Progress Note: A&P Assessment and Plan (1) ST elevation (STEMI) myocardial infarction: Code(s): I21.3 - ST elevation (STEMI) myocardial infarction of unspecified site Status: Acute Assessment and Plan: History of multivessel coronary disease admitted to the hospital on 03/04/[address] elevation [place]. Underwent successful percutaneous revascularization of his mid circumflex which was technically challenging because of his extensive vascular disease and difficult vascular access. Procedure was ultimately done with a good angiographic result. Previous stented vessels in his LAD and right mid right coronary were remaining patent. He has extensive peripheral vascular disease and has undergone right lower extremity amputation. Continue Clopidogrel 75 mg daily, Aspirin 81 mg daily, high intensity statin (2) Acute respiratory failure: Qualifiers: Respiratory failure complication: unspecified whether with hypoxia or hypercapnia Qualified Code(s): J96.00 - Acute respiratory failure, unspecified whether with hypoxia or hypercapnia Code(s): J96.00 - Acute respiratory failure, unspecified whether with hypoxia or hypercapnia Status: Acute Assessment and Plan: On mechanical ventilation, but was not able to be weaned from the vent. S/p trach placement 04/01. (3) Atrial fibrillation with RVR: Code(s): I48.91 - Unspecified atrial fibrillation Status: Acute Assessment and Plan: S/p DCCV earlier during his hospitalization. Was not on anticoagulation earlier in hospitalization due to anemia requiring transfusion, however, has been receiving therapeutic Lovenox and tolerating thus far. Held for trach placement. Will eventually switch to NOAC prior to discharge. Continue Amiodarone and Metoprolol. (4) Acute renal failure superimposed on stage 3 chronic kidney disease: Code(s): N17.9 - Acute kidney failure, unspecified; N18.30 - Chronic kidney disease, stage 3 unspecified Status: Acute Assessment and Plan: Multifactorial secondary to acute [place], hypotension, contrast exposure. (5) Essential (primary) hypertension: Code(s): I10 - Essential (primary) hypertension Status: Chronic Assessment and Plan: Stable (6) Insulin dependent type 2 diabetes mellitus: Code(s): E11.9 - Type 2 diabetes mellitus without complications; Z79.4 - terminal make up operator (current) use of insulin Status: Acute Assessment and Plan: Management per hospitalist service (7) Peripheral arterial disease: Code(s): I73.9 - Peripheral vascular disease, unspecified Status: Acute Assessment and Plan: On ASA, Plavix, statin (8) Dyslipidemia: Code(s): E78.5 - Hyperlipidemia, unspecified Status: Acute Assessment and Plan: Continue high intensity statin (9) CHF (congestive heart failure): Code(s): I50.9 - Heart failure, unspecified Status: Acute Assessment and Plan: Stable at this point Plan Recommendations and plan discussed with Webbing Inspector. Subjective Date/time seen: 04/02/24 10:11 Interval history: Follow-up visit in this 63-year-old man with diffuse coronary and peripheral arterial disease. Presented to the hospital on 03/04/2024 with some neck pain and altered mental status. STEMI was declared because of inferolateral ST segment elevation. High-grade stenosis in the trunk of the circumflex was identified and treated with PCI as detailed in the catheterization lab report. Previous LAD and right coronary stents were patent. Patient remains hospitalized was having difficulty with recurrence of atrial fibrillation last evening. This was a accompanied by hypotension requiring transfer back to the ICU. Likely this is a combination of his atrial fib other medications that were on board for hypertension. He is receiving intravenous amiodarone at this time and persisting atrial fib with heart rate 100-110. He is res
[2024-04-02 12:16] LABS: Glucose Point of Care 118 mg/dl (65-105)
--- NOTE | 2024-04-02 13:44 | PM.IMPN ---
Progress Note: A&P Assessment and Plan (1) Sepsis: Code(s): A41.9 - Sepsis, unspecified organism Status: Acute (2) Respiratory failure: Code(s): J96.90 - Respiratory failure, unspecified, unspecified whether with hypoxia or hypercapnia Status: Acute (3) ST elevation (STEMI) myocardial infarction: Code(s): I21.3 - ST elevation (STEMI) myocardial infarction of unspecified site Status: Acute (4) Tracheostomy status: Code(s): Z93.0 - Tracheostomy status Status: Acute Plan 63-year-old male with a history of CAD, and diabetes mellitus, hypertension, CKD, PAD presented with neck pain found to have STEMI. On 03/04 he underwent PCI with KENYA x1 to mid RCA. Transfer to ICU on 03/07 for hypotension and decreased responsiveness. Developed AFib with RVR. On 03/09 received 1 unit packed RBCs for hemoglobin 6.9. Successful cardioversion on 03/11 and transfer out of ICU on 03/12. On 03/15 the patient was intubated for impending respiratory failure and confusion. On 03/21 was extubated and then shortly reintubated. On 03/28 a PEG tube was placed. On 04/01 a size 8 Shiley was placed. He has been largely managed by the electronic warfare technician and cardiology teams. He has been on antibiotics for sepsis. On 04/02 remains dependent on the tracheostomy and [facility]. Subjective Date/time seen: 04/02/24 13:44 Interval history: No acute overnight events. Patient opens eyes and tracks but does not follow commands Review of Systems Review of Systems: ROS unobtainable: Yes unobtainable due to endotracheal tube and unobtainable due to medical condition Exam Const: General: comfortable Other: Intubated and sedated. Cam positive. RASS 0 Eyes: Sclera: sclerae normal Pupils: Equal, round and reactive pupils present Resp: Other: Mechanical breath sounds. Cardio: Rate: regular rate Rhythm: regular rhythm GI: GI Palp: Yes Soft to palpation and No Tenderness to palpation present (GI) Extrem: General: edema Other: Right BKA Objective Data Vital Signs Vital Signs: Vital Signs - 24 hr 04/01/24 14:00 04/01/24 14:00 04/01/24 16:00 Temperature 99.4 F Pulse Rate 72 72 Respiratory Rate 23 H Blood Pressure 131/50 L Pulse Oximetry 98 100 Oxygen Delivery Mechanical Ventilation Fraction of Inspired Oxygen 30 04/01/24 16:00 04/01/24 16:00 04/01/24 16:00 Temperature 99.4 F Pulse Rate 78 78 Respiratory Rate 19 20 Blood Pressure 153/55 H Pulse Oximetry 98 Oxygen Delivery Fraction of Inspired Oxygen 30 04/01/24 16:00 04/01/24 17:07 04/01/24 18:00 Temperature Pulse Rate 78 79 75 Respiratory Rate 26 H Blood Pressure Pulse Oximetry 98 Oxygen Delivery Mechanical Ventilation Fraction of Inspired Oxygen 30 04/01/24 18:00 04/01/24 18:00 04/01/24 18:55 Temperature 99.6 F Pulse Rate 75 75 80 Respiratory Rate 26 H 23 H Blood Pressure 154/51 H Pulse Oximetry 100 Oxygen Delivery Fraction of Inspired Oxygen 04/01/24 20:12 04/01/24 20:12 04/01/24 20:00 Temperature 99.7 F H Pulse Rate 81 81 Respiratory Rate 25 H Blood Pressure Pulse Oximetry Oxygen Delivery Fraction of Inspired Oxygen 04/01/24 20:50 04/01/24 20:00 04/01/24 20:00 Temperature Pulse Rate 75 80 Respiratory Rate Blood Pressure Pulse Oximetry 99 98 Oxygen Delivery Mechanical Ventilation Mechanical Ventilation Fraction of Inspired Oxygen 30 30 04/01/24 21:12 04/01/24 20:00 04/01/24 20:00 Temperature 99.9 F H 99.7 F H Pulse Rate 81 Respiratory Rate 26 H Blood Pressure 146/53 H Pulse Oximetry 98 Oxygen Delivery Fraction of Inspired Oxygen 30 04/01/24 21:59 04/01/24 22:00 04/01/24 22:00 Temperature 100.2 F H Pulse Rate 67 69 68 Respiratory Rate 22 H 22 H Blood Pressure 143/48 H Pulse Oximetry 99 Oxygen Delivery Fraction of Inspired O
--- NOTE | 2024-04-02 13:51 | PM.DS ---
DS: Admitting Diagnosis Discharge Date 04/02/2024 Admitting Diagnosis STEMI DS: Summary Hospital Course Hospital Course: History of multivessel coronary disease admitted to the hospital on 03/04/[address] elevation [place]. Underwent successful percutaneous revascularization of his mid circumflex which was technically challenging because of his extensive vascular disease and difficult vascular access.? Procedure was ultimately done with a good angiographic result.? Previous stented vessels in his LAD and right mid right coronary were remaining patent.?Patient to be on ASA, Plavix, Metoprolol, high intensity statin. Patient required ICU stay for hypotension and decreased responsiveness. Patient also had issues with AFIB with RVR, which necessitated electrical cardioversion. Anticoagulation was initially started, however, had to be discontinued due to anemia requiring blood transfusions. Had received therapeutic Lovenox once Hgb was stable, however, trended down to 7s, so was not restarted back on therapeutic anticoagulation. Started on Amiodarone, in addition to Metoprolol, and has since maintained sinus rhythm. Patient had issues with acute respiratory failure necessitating intubation and mechanical ventilation. He had prolonged intubation course and was not able to be weaned off of mechanical ventilation (had failed extubation). Underwent PEG tube placement on 03/29 and underwent trach placement on 04/01. Hospital course also complicated by SIM with SCr as high as 3.2; secondary to acute FL, hypotension, contrast exposure. SIM resolved prior to discharge. He was treated with broad spectrum antibiotics for sepsis (blood cultures negative, sputum culture with MRSA), will be completing course with Aztreonam (3 doses remaining at time of discharge). Status at Discharge Cognitive/behavioral status at discharge: Stable Time Spent with Patient Time attestation: Total time spent providing and/or coordinating discharge services: Exam Narrative: See cardiology progress note dated 04/02/2024. DS: Data Data Completed and Pending Completed studies during hospitalization: Cardiac Cath Procedure Note Date of procedure:: 03/04/24 Performing physician:: Horacio Cleaning MD Indication:: ?inferolateral ST-elevation FL Brief clinical history:: ?this is a 63-year-old man with history of coronary disease, previous FL and PCI details of which are unknown to me.? [facility] with an episode of neck pain that occurred earlier this morning and ECG evidence of acute inferolateral ST segment elevation FL. he has previous severe peripheral vascular disease and has had a right lower extremity [id number] amputation. Procedure Procedure performed:: ? Emergency coronary angiography ?emergency PCI(KENYA)? to the? mid circumflex trunk Sedation/Medication given:: ?fentanyl 75 mg ?Versed 2 mg ?case start time 11:49 a.m. ?case end time 12:26 p.m. ?sedation provided by Lyric Gutierres RN, ? trained observer Access site:: ?left femoral artery Estimated blood loss:: ?50 cc Procedure note:: ?patient was brought to the cardiac slab miller operator in the emergent setting described above.? There was a pulse palpable in the left groin so the left femoral triangle was prepped and draped in the normal fashion.? Anesthesia was given with 10 cc of lidocaine infiltrated locally.? With some difficulty number punctures were made but ultimately the left femoral artery was accessed and a wooly wire was advanced into the central aorta.? The peripheral vascular disease made arterial access more difficult and challenging for this reason.? Following establishment of access a 6 [place] vascular sheath was placed.? The patient had received aspirin and 180 mg of Brilinta in the emergency room was given no additional anti-platelet therapy in the slab miller operator.? The left coronary was engaged and injected using a standard 5 [place] FL4 catheter for the right coronary ar
[2024-04-02 16:02] LABS: Glucose Point of Care 98 mg/dl (65-105)
[2024-04-02 21:19] LABS: Glucose Point of Care 68 mg/dl (65-105)
[2024-04-02] MEDS: DEXTROSE 50% 25 GM/50 ML SYRINGE IV PUSH (21:31)
[2024-04-02 21:47] LABS: Glucose Point of Care 107 mg/dl (65-105)
--- NOTE | 2024-05-06 20:19 | P.PCNBED_ITS ---
Procedures Central Line Placement Right IJ: Central Line Date: 04/03/24 Central Line Time: :23 Consent: I have discussed with the patient and/or surrogate, the non-emergent placement of a central venous catheter, including its clinical necessity/indication and associated potential risks and complications. The patient and/or surrogate understand(s) and acknowledge(s) the need to proceed with central venous catheter insertion as an important element of the patient's clinical management. Time Out Performed: Yes Patient Position: trendelenburg Patient placed on monitor/pulse ox: Yes Provider Prep: mask, sterile gown, sterile gloves, Max. sterile barrier precautions, cap and hand hygiene with conventional soap/water or alcohol based hand rub Central line prep: 2% Chlorhexidine scrub Local anesthesia used: lidocaine 1% Amount of anesthesia used (ml): 5 Sterile US Technique with sterile gel/sterile probe covers: Yes [place]: 15 Length (cm): 15 Depth of Insertion (cm): 15 Post Procedure: sutured in place, good blood return, all ports aspirated, flushed, capped, transparent dressing and aseptic technique maintained throughout procedure Post procedure x-ray: tip of catheter in good position Patient tolerated procedure: well and no complications Complications: none
== END 2024-04-02 22:05 | DRG 4 ==
LOC: ANHED 11:35 → ANHICU 12:51 → ANHIMU 03-06 00:08 → ANHICU 03-07 14:39 → ANHIMU 03-12 17:39 → ANHICU 03-15 04:42
PROVIDERS: Internal Medicine; Internal Medicine Gastroenterology; Internal Medicine Nephrology; Nurse Practitioner; Otolaryngology; Admitting Provider Specialist; Emergency Provider Emergency Medicine; PCP Internal Medicine; Visit Provider Internal Medicine
PROC: 027034Z Dilation of Coronary Artery, One Artery with Drug-eluting Intraluminal Device, Percutaneous Approach (ICD-10-PCS; CPT 93454; principal; 2024-03-04 11:30)
PROC: 027034Z Dilation of Coronary Artery, One Artery with Drug-eluting Intraluminal Device, Percutaneous Approach (ICD-10-PCS; 2024-03-04 11:30)
PROC: 5A2204Z Restoration of Cardiac Rhythm, Single (ICD-10-PCS; principal; 2024-03-11 13:00)
PROC: 0DH63UZ Insertion of Feeding Device into Stomach, Percutaneous Approach (ICD-10-PCS; CPT 43246; principal; 2024-03-28 14:30)
PROC: 0B110F4 Bypass Trachea to Cutaneous with Tracheostomy Device, Open Approach (ICD-10-PCS; principal; 2024-04-01 11:00)
DX: I21.11 ST elevation (STEMI) myocardial infarction involving right coronary artery (principal); N39.0 Urinary tract infection, site not specified; B96.4 Proteus (mirabilis) (morganii) as the cause of diseases classified elsewhere; I25.10 Atherosclerotic heart disease of native coronary artery without angina pectoris; F17.210 Nicotine dependence, cigarettes, uncomplicated; I12.9 Hypertensive chronic kidney disease with stage 1 through stage 4 chronic kidney disease, or unspecified chronic kidney disease; N18.4 Chronic kidney disease, stage 4 (severe); N17.9 Acute kidney failure, unspecified; E11.22 Type 2 diabetes mellitus with diabetic chronic kidney disease; D63.1 Anemia in chronic kidney disease; I95.2 Hypotension due to drugs; G89.4 Chronic pain syndrome; E87.5 Hyperkalemia; J96.01 Acute respiratory failure with hypoxia; J96.02 Acute respiratory failure with hypercapnia; K21.9 Gastro-esophageal reflux disease without esophagitis; E87.0 Hyperosmolality and hypernatremia; I48.19 Other persistent atrial fibrillation; I31.39 Other pericardial effusion (noninflammatory); G93.49 Other encephalopathy; J90 Pleural effusion, not elsewhere classified; K81.9 Cholecystitis, unspecified; E78.5 Hyperlipidemia, unspecified; B95.62 Methicillin resistant Staphylococcus aureus infection as the cause of diseases classified elsewhere; M19.90 Unspecified osteoarthritis, unspecified site; I73.9 Peripheral vascular disease, unspecified; F90.9 Attention-deficit hyperactivity disorder, unspecified type; E66.01 Morbid (severe) obesity due to excess calories; A41.9 Sepsis, unspecified organism; I50.9 Heart failure, unspecified; Z68.35 Body mass index [BMI] 35.0-35.9, adult; Z89.511 Acquired absence of right leg below knee; Z86.718 Personal history of other venous thrombosis and embolism; Z95.5 Presence of coronary angioplasty implant and graft; Z79.4 Long term (current) use of insulin
CPT/HCPCS: 31500; 32555; 36415; 36430; 36600; 43246; 70450; 71045; 71250; 71260; 74176; 74177; 76705; 76775; 78226; 80048; 80053; 80061; 80074; 80202; 81001; 81050; 82042; 82140; 82150; 82375; 82550; 82570; 82805; 82945; 82948; 83036; 83050; 83605; 83615; 83690; 83735; 83986; 84100; 84145; 84156; 84157; 84300; 84311; 84478; 84484; 84540; 85025; 85027; 85610; 85730; 85999; 86140; 86706; 86850; 86900; 86901; 86923; 87040; 87070; 87075; 87077; 87086; 87088; 87102; 87181; 87186; 87205; 87206; 87340; 87641; 88108; 88305; 89051; 92960; 93005; 93308; 93454; 93971; 94002; 94003; 94640; 97110; 97163; 97166; 97530; 97535; 99291; A9270; A9537; C1725; C1751; C1769; C1784; C1874; C1887; C1894; C8929; C9113; C9606; J0282; J0360; J0457; J0583; J1170; J1644; J1650; J1815; J1836; J1940; J1956; J2020; J2060; J2250; J2270; J2371; J2704; J2919; J3010; J3370; J7030; J7040; J7050; J7060; J7120; P9016; P9045; P9047; Q4081; Q5105; Q9957; Q9967

== ENCOUNTER 2024-07-08 04:44 | Inpatient (IN) | payer BC, SELFPAY ==
[2024-07-08] VITALS (13 sets, daily range): BP systolic 136–176; BP diastolic 50–110; PULSE 78–879; RESP 14–27; TEMP 36.3–36.8; O2SAT 91–98; BMI 33.5
--- NOTE | ~2024-07-08 | CT_ITS ---
EXAMINATION: CT soft tissue neck wo con DATE: 07/09/2024 14:31 INDICATION: Stridor. TECHNIQUE: Computed tomography (CT) of the neck was performed without intravenous contrast. Automated exposure control and iterative reconstruction technique were employed. The dose-length product was 5 94.83 mGy-cm. COMPARISON: Chest CT March 08 and FINDINGS: There is mild atelectasis in the visualized portion of left lung. There is focal stenosis o f the trachea at the site of prior tracheostomy. The orbits are normal. There are no pathologically e nlarged lymph nodes. There is calcified atherosclerosis of the aorta and many of the other arteries. There are small bilateral mastoid effusions. The paranasal sinuses are clear. There is mild cervical spondylosis. IMPRESSION: 1. Focal stenosis of the trachea at the site of prior tracheostomy. Reviewed, dictated and finalized at location A.
--- NOTE | ~2024-07-08 | CT_ITS ---
CT Scan of the Chest without Contrast: Clinical Indication: Left lobe consolidation Technique: Contiguous sections were acquired throughout the chest without intravenous contrast. Dose reduction technique was used on this scan by utilizing automated exposure control and iterative recon struction technique. The dose-length product (DLP) was 726.04 mGy-cm. COMPARISON: 03/21/2024 Findings: There is no evidence of any significant mediastinal, hilar or axillary lymphadenopathy. The mediastin al soft tissues appear normal. Small pericardial effusion present. There is no evidence of pleural or pericardial effusion. There is extensive left lower lobe consolidation, as well as partial consolidation of the lingula. Ri ght lung is clear. Images through the upper abdomen reveal prominently distended gallbladder. Impression: Extensive left lower lobe consolidation and partial lingular consolidation. Correlate for atelectasis versus pneumonia. Small pericardial effusion, decreased from prior exam. Right lung clear. Prominently distended gallbladder, similar to prior exam. Reviewed, dictated and finalized at [facility]. Impression: Extensive left lower lobe consolidation and partial lingular consolidation. Cor relate for atelectasis versus pneumonia. Small pericardial effusion, decreased from prior exam. Right lung clear. Prominently distended gallbladder, similar to prior exam.
--- NOTE | ~2024-07-08 | XR_ITS ---
Portable chest x-ray Comparison: 04/02/2024 Clinical History: Shortness of breath Findings: There is left lower lobe consolidation and possible small left pleural effusion. Right piper g clear. Cardiomediastinal silhouette is stable. Bones and soft tissues are unremarkable. Impression: Extensive left lower lobe consolidation could reflect pulmonary edema/atelectasis versus pneumonia. C orrelate clinically. Associated probable small left pleural effusion. Reviewed, dictated and finalized at location M. Impression: Extensive left lower lobe consolidation could reflect pulmonary edema/atelectas is versus pneumonia. Correlate clinically. Associated probable small left pleural effusion.
--- NOTE | ~2024-07-08 | XR_ITS ---
Portable chest x-ray Comparison: 07/09/2024 Clinical History: Shortness of breath, tube placement Findings: Endotracheal tube is present, tip just above the thoracic inlet at the C7 region. NG tube in satisfactory position. There is extensive left lower lobe consolidation and possible small left pl eural effusion. There is mild haziness right lung base. Possible new nodular opacity right upper lobe measuring 15 mm. Cardiomediastinal silhouette is stable. Bones and soft tissues are unremarkable. Impression: ET tube tip is at C7. Further advancement advised. NG tube in satisfactory position. Extensive left lower lobe consolidation and left basilar pleural effusion. Correlate for atelectasis or pneumonia. Patchy haziness right lung base with possible new 15 mm nodular opacity right upper lobe. Findings co uld reflect positional pulmonary edema versus infection. Reviewed, dictated and finalized at [facility]. Impression: ET tube tip is at C7. Further advancement advised. NG tube in satisfactory posi tion. Extensive left lower lobe consolidation and left basilar pleural effusion. Merry elate for atelectasis or pneumonia. Patchy haziness right lung base with possible new 15 mm nodular opacity right u pper lobe. Findings could reflect positional pulmonary edema versus infection.
--- NOTE | ~2024-07-08 | XR_ITS ---
Portable chest x-ray Comparison: 07/08/2024 Clinical History: Shortness of breath Findings: Left basilar consolidation and possible small effusion are present, similar to prior exam. There is mild right basilar haziness. Cardiomediastinal silhouette is stable. Bones and soft tissue s are unremarkable. Impression: Left basilar consolidation and probable small left pleural effusion, similar to prior exam. Mild haziness right lung base which could reflect developing pulmonary edema versus pneumonia. Reviewed, dictated and finalized at location . Impression: Left basilar consolidation and probable small left pleural effusion, similar to prior exam. Mild haziness right lung base which could reflect developing pulmonary edema ve rsus pneumonia.
--- NOTE | ~2024-07-08 | XR_ITS ---
Upright portable view of the abdomen Clinical history: NG tube placement Findings: NG tube in satisfactory position. Percutaneous gastrostomy tube also noted. Bowel gas patte rn is nonspecific. No evidence for obstruction or free air. No abnormal mass lesion or calcification is seen. Osseous structures are intact. Left lower lobe consolidation likely present. Impression: NG tube and previous gastrostomy tube in place. Probable left lower lobe consolidation. Reviewed, dictated and finalized at location M. Impression: NG tube and previous gastrostomy tube in place. Probable left lower lobe consolidation.
--- NOTE | 2024-07-08 04:51 | ECG_ITS ---
Test Date: 2024-07-08 04:55:17 Measurements Intervals [place] Rate: 85 P: 0 AK: 0 QRS: 5 QRSD: 97 T: 0 QT: 365 QTc: 434 Interpretive Statements POOR QUALITY ECG BECAUSE OF BASELINE ARTIFACT SINUS RHYTHM INFERIOR MYOCARDIAL INFARCTION , OF INDETERMINATE AGE [40+ ms Q WAVE AND/OR ST/T ABNORMALITY IN II/aVF] ANTEROLATERAL MYOCARDIAL INFARCTION , OF INDETERMINATE AGE [40+ ms Q WAVE IN I/aVL/V3-V6] ABNORMAL ECG No previous ECG available for comparison Electronically Signed On 07-09-2024 07:16:17 CDT by Horacio Cleaning M.D.
[2024-07-08] MEDS: IPRATROPIUM 0.5 MG/ALBUTEROL SULFATE 2.5 MG AMPUL.NEB 3 ML INHALATION ×2 (05:10→20:56)
[2024-07-08 05:24] LABS: Basophils Absolute Auto 0.1 K/mm3 (0.0-0.1); Basophils Percent Auto 0.6 % (0.2-1.2); Eosinophils Absolute Auto 0.1 K/mm3 (0-0.3); Eosinophils Percent Auto 1.1 % (0-4.4); Hematocrit 30.9 % (42.0-52.0); Hemoglobin 9.4 g/dL (14.0-18.0); Immature Granulocyte Absolute 0.03 K/mm3 (0.00-0.031); Immature Granulocyte Percent A 0.4 % (0-0.5); Lymphocytes Absolute Auto 2.17 K/mm3 (0.9-3.2); Lymphocytes Percent Auto 26.9 % (18.3-44.2); Mean Corpuscular HGB Conc 30.4 g/dl (32-36); Mean Corpuscular Hemoglobin 29.4 pg (26-34); Mean Corpuscular Volume 96.6 fl (80-100); Mean Platelet Volume 10.7 fl (7.4-10.4); Monocytes Absolute Auto 0.7 K/mm3 (0.1-0.6); Monocytes Percent Auto 8.4 % (2.6-8.5); Neutrophils Absolute Auto 5.1 K/mm3 (1.3-6.7); Neutrophils Percent Auto 62.6 % (45.5-73.1); Platelet Count Result 243 k/mm3 (150-375); Red Cell Distribution Width 16.1 % (11.5-14.5); White Blood Count 8.1 K/mm3 (4.5-10.0)
[2024-07-08 05:28] LABS: Add Urine Microscopic? NO; Appearance Urine Clear (Clear); Bilirubin Urine Negative (Negative); Blood Urine Negative (Negative); Color Urine Yellow (Yellow); Glucose Urine UA 3+ mg/dL (Negative); Ketones Urine Negative (Negative); Leukocyte Esterase Ur Negative LEU/UL (Negative); Nitrate Urine Negative (Negative); Protein Urine Negative (Negative); Specific Grav Ur 1.019 (1.001-1.035); Urobilinogen Urine 0.2 mg/dL (<2.0)
[2024-07-08 05:34] LABS: Alanine Aminotransferase 17 U/L (6-50); Albumin Level 3.7 g/dL (3.5-5.1); Alkaline Phosphatase 111 U/L (38-126); Anion Gap 6 mmol/L (4-12); Aspartate Amino Transferase 19 U/L (17-59); Bilirubin,Total 0.3 mg/dL (0.2-1.3); Blood Urea Nitrogen 56 mg/dL (9-20); Calcium 9.2 mg/dL (8.4-10.2); Carbon Dioxide 36 mmol/L (22-30); Chloride 90 mmol/L (98-107); Estimated CRCL calculation 99 ml/min; Estimated Glomerular Filt Rate > 60; Glucose 410 mg/dL (65-110); Potassium 4.7 mmol/L (3.4-5.0); Sodium 132 mmol/L (137-145)
[2024-07-08 05:41] LABS: NT Pro B Type Natriuretic Pept 922 pg/mL (19.9-100)
--- NOTE | 2024-07-08 06:23 | ED.GENADULT ---
HPI - General Adult General Chief complaint: Shortness of Breath/Dyspnea Stated complaint: Wheezing Time Seen by Provider: 07/08/24 04:47 History of Present Illness HPI narrative: Patient is a 64-year-old male who presents to the emergency department this evening from his extended care facility due to concern for shortness of breath. EMS was called for increased work of breathing, upon arrival patient was already on nasal cannula 6 L and was satting about 95%. Patient admits that he does have a history of COPD and states that his shortness of breath started to get worse yesterday. Patient does also have history of anxiety and does appear to be anxious. EMS did administer a DuoNeb breathing treatment and IV Solu-Medrol due to bilateral wheeze in all lung schultz. Patient does not wear any oxygen at his extended care facility. He is currently denying any chest pain,, nausea, vomiting, or any abdominal pain. No additional symptoms or concerns at this time. Related Data Home Medications Medication Instructions Recorded Confirmed insulin syringe-needle U-100 11/14 #90 ea 03/05/20 03/04/24 mL 31 gauge x 15/64 pen needle, diabetic 31 gauge x #30 ea 03/05/20 03/04/2401/26 sodium chloride 0.65 % nasal spray 2 spray intranasal Q4H PRN Nasal 03/17/20 03/04/24 aerosol (Saline Nasal) Congestion bupropion HCl 100 mg tablet,12 hr 100 mg PO DAILY 11/15/23 03/04/24 sustained-release clotrimazole 1 % topical cream 1 applic topical BID 11/15/23 03/04/24 pregabalin 150 mg capsule 150 mg PO TID 11/15/23 03/04/24 tramadol 50 mg tablet 50 mg PO Q12H PRN Pain 11/15/23 03/04/24 albuterol sulfate 90 mcg/actuation 2 puff inhalation Q4H PRN 03/04/24 03/04/24 aerosol inhaler Shortness Of Breath Or Wheezing budesonide-formoterol HFA 160 2 puff inhalation Q12H 03/04/24 03/04/24 mcg-4.5 mcg/actuation aerosol inhaler (Symbicort) cyclobenzaprine 10 mg tablet 10 mg PO Q8H PRN muscle spasm 03/04/24 03/04/24 sodium phosphates 19 gram-7 118 ml RECTAL ONCE PRN Constipation 03/04/24 03/04/24 gram/118 mL enema (Fleet Enema) tamsulosin 0.4 mg capsule (Flomax) 0.4 mg PO DAILY 03/04/24 03/04/24 Allergies Allergy/AdvReac Type Severity Reaction Status Date / Time amoxicillin Allergy Severe shortness Verified 07/08/24 05:02 of breath Penicillins Allergy Severe Anaphylactic Verified 07/08/24 05:02 Shock trimethoprim Allergy Intermediate Unknown Verified 07/08/24 05:02 cefuroxime Allergy Unknown Verified 07/08/24 05:02 cephalexin Allergy Unknown Verified 07/08/24 05:02 clindamycin Allergy Unknown Verified 07/08/24 05:02 gabapentin Allergy Unknown Verified 07/08/24 05:02 Review of Systems Review of Systems: All systems are reviewed and are negative unless stated otherwise in the HPI. [facility] Past Medical History Medical History ADHD (attention deficit hyperactivity disorder) Cellulitis of both feet Chronic kidney disease, stage 3 Baseline creatinine between 1.5 and 1.60. Chronic pain syndrome On long-term opiates. Coronary artery disease With history of stents. Degenerative disc disease Diabetic foot infection Gangrene of toe of right foot GERD (gastroesophageal reflux disease) History of DVT of lower extremity Hospital discharge follow-up Hyperlipidemia Hypertension Insulin dependent type 2 diabetes mellitus Myocardial infarction Osteoarthritis Peripheral arterial disease Status post right lower extremity revascularization per Dr. Altman. Shortness of breath on exertion Tobacco abuse Surgical History Surgical History H/O cardiac catheterization History of left-sided carotid endarterectomy History of revascularization procedure of lower extremity Right lower extremity angioplasty and stent per Dr. Hurt. Hx of right BKA Tracheostomy status Placed on 04/01/2024 due to prolonged intubation status post STEMI
--- NOTE | 2024-07-08 06:44 | PC.NURSE ---
Patient's brief changed. Patient noted to have ulcer on his sacrum/coccyx. Unalble to evaluate for stage of ulcer.
--- NOTE | 2024-07-08 07:15 | ADMGEN ---
This patient, Noel Rodriguez, was admitted to Medical Room 261-01. Patient/family oriented to hospital policies and general routines including ID bracelet, bed and alarms, visiting hours, pain management, procedures, bathroom and other care routines, personal items, smoking policy, room service/diet, and visiting hours. Information on how to activate the Rapid Response Team has been discussed. Patient/Family are encouraged to report perceived risks to care and to ask questions if they do not understand what they are told or what they should do.
--- NOTE | 2024-07-08 08:44 | PM.IMHP ---
H&P: HPI History of Present Illness Date/Time: 07/08/24 08:44 Chief Complaint: Shortness of breath Narrative: Patient is a 64-year-old male who presents to the emergency department this evening from his extended care facility due to concern for shortness of breath. EMS was called for increased work of breathing, upon arrival patient was already on nasal cannula 6 L and was satting about 95%. Patient admits that he does have a history of COPD and states that his shortness of breath started to get worse yesterday. Patient does also have history of anxiety. EMS administered a DuoNeb breathing treatment and IV Solu-Medrol due to bilateral wheeze in all lung schultz. Patient does not wear any oxygen at his extended care facility. No chest pain nausea vomiting abdominal pain. No fever Review of Systems Review of Systems: - CONSTITUTIONAL: Denies weight loss, fever and chills. - HEENT: Denies changes in vision and hearing - RESPIRATORY: Reports SOB and reports cough. - CV: Denies palpitations and CP. - GI: Denies abdominal pain, nausea, vomiting and diarrhea. - : Denies dysuria and urinary frequency. - MSK: Denies myalgia and joint pain. - SKIN: Denies rash and pruritus. - NEUROLOGICAL: Denies headache and syncope. - PSYCHIATRIC: Denies recent changes in mood. Denies anxiety and depression. PMFSH Past Medical History Medical History ADHD (attention deficit hyperactivity disorder) Cellulitis of both feet Chronic kidney disease, stage 3 Baseline creatinine between 1.5 and 1.60. Chronic pain syndrome On long-term opiates. Coronary artery disease With history of stents. Degenerative disc disease Diabetic foot infection Gangrene of toe of right foot GERD (gastroesophageal reflux disease) History of DVT of lower extremity Hospital discharge follow-up Hyperlipidemia Hypertension Insulin dependent type 2 diabetes mellitus Myocardial infarction Osteoarthritis Peripheral arterial disease Status post right lower extremity revascularization per Dr. Altman. Shortness of breath on exertion Tobacco abuse Surgical History Surgical History H/O cardiac catheterization History of left-sided carotid endarterectomy History of revascularization procedure of lower extremity Right lower extremity angioplasty and stent per Dr. Hurt. Hx of right BKA Tracheostomy status Placed on 04/01/2024 due to prolonged intubation status post STEMI Family History Family History Father , age 91 CAD Acute myocardial infarction Mother , age 85 CVA Cerebrovascular accident Other Family history of arthritis Family history of cardiovascular disease Family history of chronic obstructive pulmonary disease Family history of mental disorder Hypertension Social History Social History Social History: The patient is currently at [facility]. He designates his cousin Jaskaran Carr as his surrogate decision-maker and he wishes to be a full code. 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 He smokes between 5 and 20 cigarettes and 20 cigarettes/day. No drug use. He has no children. He has never been . Smoking packs per day: 3 Smoking cigarettes per day: 60.0 Years smoked: 44 Smoking pack-years: 132.00 Smoking status: Former smoker Tobacco type: cigarettes Second hand tobacco smoke exposure: No Additional smoking assessment comments: patient stated i smoke one cigar every 6 hours Alcohol intake: never Substance use: former Substance use type: marijuana Other substance usage details: [facility]; used for [facility] Last use: 03/16/2020 Do You Feel Safe in your Home?: Yes Lack of Transportation: YES [place]
[2024-07-08 11:14] LABS: Hemoglobin A1C 8.3 % (<5.7)
[2024-07-08] MEDS: levoFLOXacin 750 MG/D5W 150 ML 750 MG/150 ML BAG 100 MG IVPB (12:24)
[2024-07-08] MEDS: ENOXAPARIN 40 MG/0.4 ML SYRINGE SUB-Q (12:24)
[2024-07-08] MEDS: guaiFENesin 12 HR 600 MG TABCR 1200 MG PO ×2 (12:24→20:42)
[2024-07-08 13:18] LABS: Influenza A QL RT-PCR Negative (Negative); Influenza B QL RT-PCR Negative (Negative); RSV RNA, RT-PCR Negative (Negative); SARS-CoV-2 RNA PCR Negative (Negative)
--- NOTE | 2024-07-08 14:07 | P.CDI_ITS ---
CDI Query Clarification Request BMI: 33.5 Nutritional Diagnostic Statement: Please refer to the comprehensive nutrition assessment for further information. If you agree with diagnosis of Moderate Protein Calorie Malnutrition as related to increased protein needs in the setting of chronic disease as evidenced by < 75% of Estimated Energy Requirements for > 1 month and significant weight loss of 32 ibs (12%) in 3 months. Please specify severity if known: * Mild * Moderate * Severe * Other/Unknown <Christina Bird RN - Last Filed: 07/08/24 14:09> Provider Comments Moderate protein calorie mild nutrition <Jefferson Kumari MD - Last Filed: 07/08/24 18:55>
[2024-07-08 14:50] LABS: MRSA (PCR) DETECTED (NOT DETECTE)
[2024-07-08] MEDS: VANCOMYCIN 1,250 MG/NS 250 ML 1,250 MG/250 ML BAG 166.67 MG IVPB ×2 (14:50→14:52)
--- NOTE | 2024-07-08 15:19 | PCSTNOTE ---
Please refer to the Bedside Swallow Evaluation in the EMR. Please note, silent aspiration cannot be ruled out at bedside.
[2024-07-08 18:06] LABS: Glucose Point of Care 500 mg/dl (65-105)
[2024-07-08] MEDS: INSULIN ASPART (*BKC) 100 UNITS/ML 20 UNITS SUB-Q (18:44)
[2024-07-08] MEDS: INSULIN GLARGINE (*BKC) 100 UNITS/ML 25 UNITS SUB-Q (18:44)
[2024-07-08] MEDS: metroNIDAZOLE 500 MG/ISO 100ML 500 MG/100 ML BAG 100 MG IVPB ×2 (20:33→23:44)
[2024-07-08] MEDS: INSULIN ASPART (*BKC) 100 UNITS/ML 7 UNITS SUB-Q ×2 (20:39→23:42)
[2024-07-08] MEDS: METOPROLOL TARTRATE 50 MG TAB FEED TUBE (20:42)
[2024-07-08] MEDS: LANSOPRAZOLE ODT 30 MG TAB.RAP.DR FEED TUBE (20:42)
[2024-07-08] MEDS: MIRTAZAPINE SOLTAB 15 MG TAB.DISPER FEED TUBE (20:43)
[2024-07-08] MEDS: amLODIPine BESYLATE 5 MG TABLET FEED TUBE (20:43)
[2024-07-08] MEDS: VANCOMYCIN 1,500 MG/NS 500 ML 1,500 MG/500 ML BAG 250 MG IVPB (22:27)
[2024-07-08 22:44] LABS: Glucose Point of Care 445 mg/dl (65-105)
[2024-07-08 23:28] LABS: Glucose Point of Care 432 mg/dl (65-105)
[2024-07-09] VITALS (19 sets, daily range): BP systolic 133–157; BP diastolic 42–85; PULSE 65–104; RESP 18–20; TEMP 36.1–37.1; O2SAT 95–100
[2024-07-09] MEDS: IPRATROPIUM 0.5 MG/ALBUTEROL SULFATE 2.5 MG AMPUL.NEB 3 ML INHALATION ×4 (02:04→20:59)
[2024-07-09] MEDS: INSULIN ASPART (*BKC) 100 UNITS/ML 7 UNITS SUB-Q (05:36)
[2024-07-09] MEDS: metroNIDAZOLE 500 MG/ISO 100ML 500 MG/100 ML BAG 100 MG IVPB ×4 (05:36→23:53)
[2024-07-09 06:07] LABS: Glucose Point of Care > 500 mg/dl (65-105)
[2024-07-09 06:09] LABS: Basophils Percent Auto 0.1 % (0.2-1.2); Hematocrit 29.6 % (42.0-52.0); Immature Granulocyte Absolute 0.03 K/mm3 (0.00-0.031); Immature Granulocyte Percent A 0.3 % (0-0.5); Lymphocytes Absolute Auto 0.86 K/mm3 (0.9-3.2); Lymphocytes Percent Auto 9.8 % (18.3-44.2); Mean Corpuscular HGB Conc 30.4 g/dl (32-36); Mean Corpuscular Hemoglobin 29.6 pg (26-34); Mean Corpuscular Volume 97.4 fl (80-100); Mean Platelet Volume 10.8 fl (7.4-10.4); Monocytes Absolute Auto 0.8 K/mm3 (0.1-0.6); Monocytes Percent Auto 8.6 % (2.6-8.5); Neutrophils Absolute Auto 7.1 K/mm3 (1.3-6.7); Neutrophils Percent Auto 81.2 % (45.5-73.1); Platelet Count Result 255 k/mm3 (150-375); Red Blood Count 3.04 M/mm3 (4.6-6.20); Red Cell Distribution Width 16.6 % (11.5-14.5); White Blood Count 8.8 K/mm3 (4.5-10.0)
[2024-07-09 06:31] LABS: Alanine Aminotransferase 17 U/L (6-50); Albumin Level 3.5 g/dL (3.5-5.1); Alkaline Phosphatase 96 U/L (38-126); Anion Gap 9 mmol/L (4-12); Aspartate Amino Transferase 21 U/L (17-59); Bilirubin,Total 0.5 mg/dL (0.2-1.3); Blood Urea Nitrogen 49 mg/dL (9-20); Calcium 9.2 mg/dL (8.4-10.2); Carbon Dioxide 31 mmol/L (22-30); Chloride 95 mmol/L (98-107); Estimated CRCL calculation 112 ml/min; Estimated Glomerular Filt Rate > 60; Glucose 557 mg/dL (65-110); Magnesium 1.8 mg/dL (1.6-2.3); Potassium 4.9 mmol/L (3.4-5.0); Sodium 135 mmol/L (137-145)
[2024-07-09] MEDS: INSULIN ASPART (*BKC) 100 UNITS/ML 10 UNITS SUB-Q ×4 (06:54→23:52)
[2024-07-09 08:28] LABS: Glucose Point of Care 438 mg/dl (65-105)
[2024-07-09] MEDS: amLODIPine BESYLATE 5 MG TABLET FEED TUBE (09:20)
[2024-07-09] MEDS: guaiFENesin 12 HR 600 MG TABCR 1200 MG PO ×2 (09:21→20:22)
[2024-07-09] MEDS: METOPROLOL TARTRATE 50 MG TAB FEED TUBE ×2 (09:21→20:24)
[2024-07-09] MEDS: CLOPIDOGREL BISULFATE 75 MG TABLET FEED TUBE (09:21)
[2024-07-09] MEDS: LANSOPRAZOLE ODT 30 MG TAB.RAP.DR FEED TUBE ×2 (09:21→17:29)
[2024-07-09] MEDS: ATORVASTATIN 40 MG TABLET FEED TUBE (09:21)
[2024-07-09] MEDS: ACIDOPHILUS/BULGARICUS CHEWABLE TABLET 1 TABLET FEED TUBE (09:21)
[2024-07-09] MEDS: VANCOMYCIN 1,500 MG/NS 500 ML 1,500 MG/500 ML BAG 250 MG IVPB (09:21)
[2024-07-09] MEDS: levoFLOXacin 750 MG/D5W 150 ML 750 MG/150 ML BAG 100 MG IVPB (09:22)
[2024-07-09] MEDS: SILVER SULFADIAZINE 1% CR 400 GM JAR (*BKC) 1 APPLIC TOPICAL (09:22)
[2024-07-09] MEDS: AMIODARONE HCL 100 MG TABLET FEED TUBE (09:23)
[2024-07-09] MEDS: INSULIN GLARGINE (*BKC) 100 UNITS/ML 35 UNITS SUB-Q (09:30)
[2024-07-09] MEDS: ENOXAPARIN 40 MG/0.4 ML SYRINGE SUB-Q (09:34)
[2024-07-09] MEDS: ONDANSETRON HCL ODT 4 MG TABLET PO (09:45)
--- NOTE | 2024-07-09 10:22 | PCNFU ---
Nutrition Follow-Up Complete: Moderate Protein Calorie Malnutrition as related to increased protein needs in the setting of chronic disease as evidenced by < 75% of Estimated Energy Requirements for > 1 month and significant weight loss of 32 ibs (12%) in 3 months. Goal: Meet estimated nutritional needs Patient is progressing towards goal. We will continue current goal. Pt current nutrition is Vital AF 1.2 at 70 ml/hr. Last recorded weight is 105.9 kg, no new weight to report. Bowel Motility:Last reported BM 07/05 Labs Reviewed: Glu 557, BUN 49, Na 135 Meds Noted: Lantus, NovoLog,Lipitor, Remeron. Skin: Sacrum and left ankle-stage III pressure ulcer. Additional Notes: Patient started on Vital 1.5 at 55 ml/hr on 07/08. Home tube feedings are of Pivot 1.5 at 55 ml/hr. Hospital does not carry this tube feeding formula. Blood sugars elevated overnight. Tube feeding formula change to Vital AF 1.2 at 70 ml/hr. Total carbs 110gm per Liter vs 187 gm per Liter. Tube feeding rate increased to 70 ml/hr to better meet caloric need. Total nutrition: 1848 kcal/116 gm protein/1240 ml water. Additional protein needs due to stage III pressure ulcer reported. Water Flush 240 ml q 6 hours. All discussed with Hospitalist today. Agree with diet orders. Will monitor weight, labs, skin, tube feedings, meds every Monday and Monday.
[2024-07-09 12:02] LABS: Glucose Point of Care 347 mg/dl (65-105)
--- NOTE | 2024-07-09 12:23 | PM.CNPUL ---
Assessment and Plan Assessment and plan (1) Lobar pneumonia: Code(s): J18.1 - Lobar pneumonia, unspecified organism Status: Acute Assessment and Plan: patient presents with 2-3 days worsening her cough with phlegm production or, he has no dyspnea on exertion or change in his shortness of breath. He had no white blood cell count. COVID influenza RSV RT PCR negative. CT scan of the chest with worsening left lingular infiltrate and improved left lower lobe consolidation and superior segment of the left lower lobe consolidations compared to 03/21/2024. Patient is MRSA nasal swab positive. For sputum contains greater than 25 epithelial cells per high-power field and therefore not cultured. Plan: Agree with treatment for possible pneumonia. Continue vancomycin, levofloxacin and Flagyl, all day 2. Legionella, pneumococcal urine studies sent. Mycoplasma IgM pending. will reorder sputum culture. Goal saturation 90-94%. Currently the patient is on 0.5 L with saturations 96%. I decreased him to room air and saturations were 93%. I told the patient that he could go without oxygen and he said this makes him very anxious and he would prefer I leave it on 0.5 L which I have done. Patient may remain not have COPD. he has no wheezing. Currently is on DuoNebs q.6 hours, guaifenesin 1200 b.i.d. At this time I do not feel this is a COPD exacerbation and do not recommend inhaled or systemic steroids. Discussed with Dr. Kumari, will follow with you. (2) Tracheostomy status: Code(s): Z93.0 - Tracheostomy status Status: Acute Assessment and Plan: Patient is status post tracheostomy on 04/02/2024 for failure to wean. He was transferred to LTAC and he tells me he was de cannulated approximately 5 weeks ago. Since then he has a raspy voice and at times feels as though his phlegm is stuck in his throat. On physical scan M he intermittently has inspiratory stridorous sounds on deep inspiration. Patient is in no respiratory distress and has no inspiratory stridor sounds on normal respiration. Plan: Will obtain CT scan of the neck today. ENT consult has been placed and they will be available on 07/10/2024. History of Present Illness History of Present Illness Consult date: 07/09/24 Chief complaint: COPD/Pneumonia Narrative: 07/09/2024: This is a new pulmonary consult for pneumonia. 64-year-old with a history of diabetes status post right BKA, hypertension, peripheral arterial disease, anxiety, coronary artery disease, atrial fibrillation, COPD and tobacco use. Patient was admitted to [facility] on 03/04/[address]-elevation MO and had a stent placed is mid circumflex. This was complicated by shock, altered mental status, AFib with RVR, acute kidney injury, respiratory failure requiring intubation and failure to wean status post PEG on 03/29/2024 and status post tracheostomy on 04/01/2024. patient was transferred to LTAC on 04/02/2024. Patient was eventually transferred to [facility] assisted. He tells me he was de cannulated about 5 weeks ago. He tells me he has been at [facility]. He has not been able to walk for 3-4 years after his right BKA. He smokes 2 cigars a day. Since his decannulation his voice is changed and it is more raspy now. He tells me his breathing has been about the same since decannulation and he sometimes has a hard time coughing up phlegm. Patient presented to the emergency department on 07/08/2024. Patient tells me that 2-3 days ago he started with Worsening cough, increased phlegm production with no blood. he denies any shortness of breath. He denies fever or chills. In the emergency room his white blood cell count was 8.1, his creatinine was 0.8, his BUN was 56, his COVID, influenza and RSV RT PCR studies were negative. His MRSA was positive and his room air saturations were 97%. Patient had a CT scan of the chest that demonstrated improved conso
[2024-07-09] MEDS: INSULIN ASPART (*BKC) 100 UNITS/ML SUB-Q (12:59)
[2024-07-09] MEDS: INSULIN ASPART (*BKC) 100 UNITS/ML 15 UNITS SUB-Q (13:00)
--- NOTE | 2024-07-09 13:14 | PM.IMPN ---
Progress Note: A&P Assessment and Plan (1) COPD exacerbation: Code(s): J44.1 - Chronic obstructive pulmonary disease with (acute) exacerbation Status: Acute (2) Lobar pneumonia: Code(s): J18.1 - Lobar pneumonia, unspecified organism Status: Acute (3) Acute respiratory failure: Qualifiers: Respiratory failure complication: unspecified whether with hypoxia or hypercapnia Qualified Code(s): J96.00 - Acute respiratory failure, unspecified whether with hypoxia or hypercapnia Code(s): J96.00 - Acute respiratory failure, unspecified whether with hypoxia or hypercapnia Status: Acute (4) Chronic kidney disease, stage 3: Code(s): N18.3 - Chronic kidney disease, stage 3 (moderate) Status: Chronic (5) Normocytic anemia: Code(s): D64.9 - Anemia, unspecified Status: Acute (6) Dyslipidemia: Code(s): E78.5 - Hyperlipidemia, unspecified Status: Acute (7) Diabetic peripheral neuropathy: Code(s): E11.42 - Type 2 diabetes mellitus with diabetic polyneuropathy Status: Acute (8) Tobacco abuse: Code(s): Z72.0 - Tobacco use Status: Acute (9) Essential (primary) hypertension: Code(s): I10 - Essential (primary) hypertension Status: Chronic (10) Coronary artery disease involving pamunkey coronary artery of pamunkey heart: Qualifiers: Associated angina: without angina Qualified Code(s): I25.10 - Atherosclerotic heart disease of pamunkey coronary artery without angina pectoris Code(s): I25.10 - Atherosclerotic heart disease of pamunkey coronary artery without angina pectoris Status: Acute (11) Peripheral vascular disease: Code(s): I73.9 - Peripheral vascular disease, unspecified Status: Acute (12) Peripheral arterial disease: Code(s): I73.9 - Peripheral vascular disease, unspecified Status: Acute (13) Insulin dependent type 2 diabetes mellitus: Code(s): E11.9 - Type 2 diabetes mellitus without complications; Z79.4 - intermediate card tender (current) use of insulin Status: Acute Plan Patient is a 64-year-old male who presents to the emergency department this evening from his extended care facility due to concern for shortness of breath. EMS was called for increased work of breathing, upon arrival patient was already on nasal cannula 6 L and was satting about 95%. Patient admits that he does have a history of COPD and states that his shortness of breath started to get worse yesterday. Patient does also have history of anxiety. EMS administered a DuoNeb breathing treatment and IV Solu-Medrol due to bilateral wheeze in all lung schultz. Patient does not wear any oxygen at his extended care facility. No chest pain nausea vomiting abdominal pain. No fever. And ED evaluation he was hypertensive under diffusely wheezy. Patient received additional DuoNeb treatment. EKG showed sinus rhythm with no acute ST-T changes. Laboratory evaluation revealed hemoglobin of 9.4 WBC of 8.1 mildly hyponatremic at 1:32 a.m. proBNP of 922 glucose was 410. Urinalysis reveals 3+ glucose otherwise unremarkable. Chest x-ray revealed extensive left lower lobe consolidation which could represent of pulmonary edema/atelectasis versus pneumonia. Associated probable small left pleural effusion. Blood cultures were obtained and was started on IV Levaquin. He has allergies to penicillin. While in the ER his oxygen has been tapered down to room air. COPD does not sound to be in acute exacerbation. Continue bronchodilators for now. Avoid steroid due to acute bacterial pneumonia. Some wheezing noted. Will get CT neck due to tracheostomy status. Some stridor suspected by Pulmonary. Will get ENT consultation. Will add budesonide nebs avoid steroid due to hypoglycemia Left lower lobe consolidation history of MRSA pneumonia in the past. Nasal MRSA was positive as well. Started on vancomycin. COVID flu swab negative On levofloxa
[2024-07-09 17:04] LABS: Glucose Point of Care 189 mg/dl (65-105)
[2024-07-09] MEDS: traMADol HCL (*CRX) 50 MG TABLET FEED TUBE (17:42)
[2024-07-09] MEDS: INSULIN GLARGINE (*BKC) 100 UNITS/ML 25 UNITS SUB-Q (20:22)
[2024-07-09] MEDS: MIRTAZAPINE SOLTAB 15 MG TAB.DISPER FEED TUBE (20:22)
[2024-07-09] MEDS: BUDESONIDE RESPULE NEB 0.5 MG/2 ML AMP INHALATION (20:59)
[2024-07-09 21:09] LABS: Glucose Point of Care 232 mg/dl (65-105)
[2024-07-09 21:55] LABS: Vancomycin Trough 32.7 ug/mL (10.0-20.0)
[2024-07-09 23:49] LABS: Glucose Point of Care 180 mg/dl (65-105)
[2024-07-10] VITALS (14 sets, daily range): BP systolic 127–130; BP diastolic 45–60; PULSE 64–80; RESP 16–20; TEMP 36.1–37.1; O2SAT 97–99
[2024-07-10] MEDS: IPRATROPIUM 0.5 MG/ALBUTEROL SULFATE 2.5 MG AMPUL.NEB 3 ML INHALATION ×3 (01:56→21:15)
[2024-07-10] MEDS: metroNIDAZOLE 500 MG/ISO 100ML 500 MG/100 ML BAG 100 MG IVPB ×3 (05:01→22:47)
[2024-07-10 05:31] LABS: Basophils Percent Auto 0.5 % (0.2-1.2); Eosinophils Percent Auto 0.4 % (0-4.4); Hemoglobin 8.9 g/dL (14.0-18.0); Immature Granulocyte Absolute 0.05 K/mm3 (0.00-0.031); Immature Granulocyte Percent A 0.6 % (0-0.5); Immature Platelet Fraction Pct 2.3 % (0.9-11.2); Lymphocytes Absolute Auto 2.16 K/mm3 (0.9-3.2); Lymphocytes Percent Auto 25.4 % (18.3-44.2); Mean Corpuscular HGB Conc 28.7 g/dl (32-36); Mean Corpuscular Hemoglobin 28.9 pg (26-34); Mean Corpuscular Volume 100.6 fl (80-100); Mean Platelet Volume 10.5 fl (7.4-10.4); Monocytes Absolute Auto 0.7 K/mm3 (0.1-0.6); Monocytes Percent Auto 8.7 % (2.6-8.5); Neutrophils Absolute Auto 5.5 K/mm3 (1.3-6.7); Neutrophils Percent Auto 64.4 % (45.5-73.1); Platelet Count Result 226 k/mm3 (150-375); Red Blood Count 3.08 M/mm3 (4.6-6.20); White Blood Count 8.5 K/mm3 (4.5-10.0)
[2024-07-10 05:36] LABS: Glucose Point of Care 180 mg/dl (65-105)
[2024-07-10 05:44] LABS: Alanine Aminotransferase 16 U/L (6-50); Albumin Level 3.6 g/dL (3.5-5.1); Alkaline Phosphatase 80 U/L (38-126); Anion Gap 9 mmol/L (4-12); Aspartate Amino Transferase 21 U/L (17-59); Bilirubin,Total 0.2 mg/dL (0.2-1.3); Blood Urea Nitrogen 52 mg/dL (9-20); Calcium 9.2 mg/dL (8.4-10.2); Carbon Dioxide 31 mmol/L (22-30); Chloride 98 mmol/L (98-107); Estimated CRCL calculation 99 ml/min; Estimated Glomerular Filt Rate > 60; Glucose 178 mg/dL (65-110); Magnesium 1.9 mg/dL (1.6-2.3); Potassium 4.8 mmol/L (3.4-5.0); Sodium 138 mmol/L (137-145)
[2024-07-10] MEDS: INSULIN ASPART (*BKC) 100 UNITS/ML 10 UNITS SUB-Q ×3 (05:44→18:17)
[2024-07-10 05:50] LABS: Vancomycin Random 27.7 ug/mL (10-20)
[2024-07-10 05:53] LABS: Hypochromasia 1+; Platelet Estimate Adequate (Adequate)
[2024-07-10 05:54] LABS: Anisocytosis 1+; Ovalocytes 1+; Schistocytes None Seen
[2024-07-10] MEDS: amLODIPine BESYLATE 5 MG TABLET FEED TUBE (08:12)
[2024-07-10] MEDS: guaiFENesin 12 HR 600 MG TABCR 1200 MG PO ×2 (08:12→20:20)
[2024-07-10] MEDS: LANSOPRAZOLE ODT 30 MG TAB.RAP.DR FEED TUBE ×2 (08:12→18:16)
[2024-07-10] MEDS: ACIDOPHILUS/BULGARICUS CHEWABLE TABLET 1 TABLET FEED TUBE (08:13)
[2024-07-10] MEDS: levoFLOXacin 750 MG/D5W 150 ML 750 MG/150 ML BAG 100 MG IVPB (08:13)
[2024-07-10] MEDS: ZINC OXIDE 20% OINT 30 GM TUBE 1 APPLIC TOPICAL (08:13)
[2024-07-10] MEDS: SILVER SULFADIAZINE 1% CR 400 GM JAR (*BKC) 1 APPLIC TOPICAL (08:13)
[2024-07-10] MEDS: ATORVASTATIN 40 MG TABLET FEED TUBE (08:13)
[2024-07-10] MEDS: ENOXAPARIN 40 MG/0.4 ML SYRINGE SUB-Q (08:13)
[2024-07-10] MEDS: METOPROLOL TARTRATE 50 MG TAB FEED TUBE ×2 (08:13→20:24)
[2024-07-10] MEDS: AMIODARONE HCL 100 MG TABLET FEED TUBE (08:13)
[2024-07-10] MEDS: INSULIN GLARGINE (*BKC) 100 UNITS/ML 25 UNITS SUB-Q ×2 (08:13→20:25)
--- NOTE | 2024-07-10 09:03 | PM.PNPUL ---
Progress Note: A&P Assessment and Plan (1) Lobar pneumonia: Code(s): J18.1 - Lobar pneumonia, unspecified organism Status: Acute Assessment and Plan: patient presents with 2-3 days worsening her cough with phlegm production or, he has no dyspnea on exertion or change in his shortness of breath. He had no white blood cell count. COVID influenza RSV RT PCR negative. CT scan of the chest with worsening left lingular infiltrate and improved left lower lobe consolidation and superior segment of the left lower lobe consolidations compared to 03/21/2024. Patient is MRSA nasal swab positive. For sputum contains greater than 25 epithelial cells per high-power field and therefore not cultured. Plan: Agree with treatment for possible pneumonia. Continue vancomycin, levofloxacin and Flagyl, all day 2. Legionella, pneumococcal urine studies sent. Mycoplasma IgM pending. will reorder sputum culture. Goal saturation 90-94%. Currently the patient is on 0.5 L with saturations 96%. I decreased him to room air and saturations were 93%. I told the patient that he could go without oxygen and he said this makes him very anxious and he would prefer I leave it on 0.5 L which I have done. Patient may remain not have COPD. he has no wheezing. Currently is on DuoNebs q.6 hours, guaifenesin 1200 b.i.d. At this time I do not feel this is a COPD exacerbation and do not recommend inhaled or systemic steroids. Discussed with Dr. Kumari, will follow with you. 07/10/2024: Patient states that he is breathing okay. His cough is the same as his usual with a little bit of phlegm production. His raspy voice continues and he has positional stridor. His white blood cell count is 8.5 creatinine is 0.8. He is afebrile. Suspect the majority of patient's respiratory symptoms are related to his tracheal stenosis. will continue to treat for possible pneumonia as he has new lingular infiltrates on his CT scan. Plan: Will continue vancomycin, levofloxacin and Flagyl, all day 3. If the patient remains clinically stable blood cultures are negative will begin deescalation on 07/11/2024. Continue DuoNebs q.6 hours and guaifenesin 1200 BID. Discussed with dayana Mercer, will follow with you. (2) Tracheostomy status: Code(s): Z93.0 - Tracheostomy status Status: Acute Assessment and Plan: Patient is status post tracheostomy on 04/02/2024 for failure to wean. He was transferred to LT[facility] and he tells me he was de cannulated approximately 5 weeks ago. Since then he has a raspy voice and at times feels as though his phlegm is stuck in his throat. On physical scan M he intermittently has inspiratory stridorous sounds on deep inspiration. Patient is in no respiratory distress and has no inspiratory stridor sounds on normal respiration. Plan: Will obtain CT scan of the neck today. ENT consult has been placed and they will be available on 07/10/2024. Later in the day, CT scan of the neck that demonstrated focal stenosis at the site of his tracheostomy. 07/10/2024: Patient has positional inspiratory stridor worse when he was laying relatively flat and improved when he said him upright. Raspy voice continues. Plan: Await ENT evaluation. Patient received Plavix yesterday. I will hold the Plavix today and have the hospitalist discussed with Cardiology best treatment options for him with a stent on 03/04/2024 and the likely need for a tracheal procedure. Subjective Date/time seen: 07/10/24 09:03 Interval history: 07/09/2024: This is a new pulmonary consult for pneumonia. 64-year-old with a history of diabetes status post right BKA, hypertension, peripheral arterial disease, anxiety, coronary artery disease, atrial fibrillation, COPD and tobacco use. Patient was admitted to [facility] on 03/04/[address]-elevation PR and had a stent placed is mid circumflex. This was complicated by shock, altered menta
--- NOTE | 2024-07-10 11:11 | PCRCNOTE ---
Window of time for administration has passed. See next scheduled administration.
[2024-07-10 12:00] LABS: Glucose Point of Care 277 mg/dl (65-105)
[2024-07-10] MEDS: INSULIN ASPART (*BKC) 100 UNITS/ML SUB-Q ×2 (12:27→18:17)
[2024-07-10] MEDS: traMADol HCL (*CRX) 50 MG TABLET FEED TUBE ×2 (12:39→20:19)
--- NOTE | 2024-07-10 15:44 | PC.NURSE ---
Hospitalist notified of purulent drainage @ peg tube site. No redness noted but pt states it is tender. No orders received at this time.
--- NOTE | 2024-07-10 16:55 | WPDCN ---
Assessment and Plan Assessment and plan (1) Tracheostomy status: Code(s): Z93.0 - Tracheostomy status Status: Acute Assessment and Plan: CT personally reviewed demonstrates tracheal stenosis at site of previous tracheostomy. Patient absolutely refused flexible laryngoscopy. I explained for over 10 minutes the importance of this procedure. Patient said in no way will I be able to perform this procedure. Given that I am not able to further ascertain the status of the patient's airway I have no official recommendations. The patient does state that if he were able to be put to sleep under general anesthesia 1 could take a look. We do not have the proper instrumentation to put in to sleep and correct this stenosis at [facility]. One consideration could be to transfer him to a tertiary facility that could correct the stenosis or treat the stenosis in the operating room. I have privileges for 48 more hours and would be happy to perform flexible laryngoscopy me should the patient change his mind. HPI Data of Consult Date/Time: 07/10/24 16:55 Requesting Physician: Yahir Dubon MD Primary Care Provider: Chan Rizo, Consult Narrative Narrative: Noel Rodriguez is a 64 year old male Stridor history of tracheostomy patient reports decannulated about 5 weeks ago. On exam patient has mildly stridulous on oxygen. Tracheostomy site healing well PMFSH Past Medical History Medical History ADHD (attention deficit hyperactivity disorder) Cellulitis of both feet Chronic kidney disease, stage 3 Baseline creatinine between 1.5 and 1.60. Chronic pain syndrome On long-term opiates. Coronary artery disease With history of stents. Degenerative disc disease Diabetic foot infection Gangrene of toe of right foot GERD (gastroesophageal reflux disease) History of DVT of lower extremity Hospital discharge follow-up Hyperlipidemia Hypertension Insulin dependent type 2 diabetes mellitus Myocardial infarction Osteoarthritis Peripheral arterial disease Status post right lower extremity revascularization per Dr. Altman. Shortness of breath on exertion Tobacco abuse Surgical History Surgical History H/O cardiac catheterization History of left-sided carotid endarterectomy History of revascularization procedure of lower extremity Right lower extremity angioplasty and stent per Dr. Hurt. Hx of right BKA Tracheostomy status Placed on 04/01/2024 due to prolonged intubation status post STEMI Family History Family History Father , age 91 CAD Acute myocardial infarction Mother , age 85 CVA Cerebrovascular accident Other Family history of arthritis Family history of cardiovascular disease Family history of chronic obstructive pulmonary disease Family history of mental disorder Hypertension Social History Social History Social History: The patient is currently at [facility]. He designates his cousin Jaskaran Carr as his surrogate decision-maker and he wishes to be a full code. 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 He smokes between 5 and 20 cigarettes and 20 cigarettes/day. No drug use. He has no children. He has never been . Smoking packs per day: 3 Smoking cigarettes per day: 60.0 Years smoked: 44 Smoking pack-years: 132.00 Smoking status: Former smoker Tobacco type: cigarettes Second hand tobacco smoke exposure: No Additional smoking assessment comments: patient stated i smoke one cigar every 6 hours Alcohol intake: never Substance use: former Substance use type: marijuana Other substance usage details: [facility]; used for pain Last use: 03/16/2020
--- NOTE | 2024-07-10 17:50 | PM.IMPN ---
Progress Note: A&P Assessment and Plan (1) COPD exacerbation: Code(s): J44.1 - Chronic obstructive pulmonary disease with (acute) exacerbation Status: Acute Assessment and Plan: - Real Estate Legal Secretary following. - Continue Budesonide, duoneb updrafts, mucinex. - Currently on vancomycin, levaquin and flagyl. - Further mgt per senior support engineer. (2) Lobar pneumonia: Code(s): J18.1 - Lobar pneumonia, unspecified organism Status: Acute Assessment and Plan: - Currently on 1L supplemental O2 for sats > 90 %. - Continue IV abx as noted above. - Urine legionella Ag and Pneumophila Ag pending. - Further mgt per senior support engineer. (3) Tracheal stenosis: Code(s): J39.8 - Other specified diseases of upper respiratory tract Status: Acute Assessment and Plan: - CT neck soft-tissue done 07/09/24 .shows focal stenosis of the trachea at the site of prior tracheostomy. - Patient with audible stridor. - Patient refused ENT evaluation. - Plans underway to transfer patient to [facility]. - Continue supplemental O2 to maintain sats > 90 %. (4) Acute respiratory failure: Qualifiers: Respiratory failure complication: unspecified whether with hypoxia or hypercapnia Qualified Code(s): J96.00 - Acute respiratory failure, unspecified whether with hypoxia or hypercapnia Code(s): J96.00 - Acute respiratory failure, unspecified whether with hypoxia or hypercapnia Status: Acute Assessment and Plan: - Possibly related to COPD exacerbation +/vs Lobar PNA +/vs tracheal stenosis. - [facility] called for possible transfer and awaiting response. - Continue supplemental O2 to maintain sats > 90 %. (5) Coronary artery disease involving [place] coronary artery of [place] heart: Qualifiers: Associated angina: without angina Qualified Code(s): I25.10 - Atherosclerotic heart disease of [place] coronary artery without angina pectoris Code(s): I25.10 - Atherosclerotic heart disease of [place] coronary artery without angina pectoris Status: Acute Assessment and Plan: - Continue metoprolol and plavix. (6) Diabetic peripheral neuropathy: Code(s): E11.42 - Type 2 diabetes mellitus with diabetic polyneuropathy Status: Acute Assessment and Plan: - BGL moderately elevated. - Insulin dose slightly adjusted. - Continue to adjust insulin for optimal control. (7) Paroxysmal A-fib: Code(s): I48.0 - Paroxysmal atrial fibrillation Status: Acute Assessment and Plan: - Stable. - Continue metoprolol and amiodarone. (8) Chronic kidney disease, stage 3: Code(s): N18.3 - Chronic kidney disease, stage 3 (moderate) Status: Chronic Assessment and Plan: - Currently Cr trending wnl. - BUN still elevated. - Continue to trend renal panel. - Avoid nephrotoxic agents. (9) Normocytic anemia: Code(s): D64.9 - Anemia, unspecified Status: Acute Assessment and Plan: - Hgb stable. - Continue to monitor closely. (10) Dyslipidemia: Code(s): E78.5 - Hyperlipidemia, unspecified Status: Acute Assessment and Plan: - Stable. (11) Tobacco abuse: Code(s): Z72.0 - Tobacco use Status: Acute Assessment and Plan: - Nicotine patch PRN. (12) Essential (primary) hypertension: Code(s): I10 - Essential (primary) hypertension Status: Chronic Assessment and Plan: - BP well controlled. - Continue amlodipine and metoprolol. (13) Peripheral vascular disease: Code(s): I73.9 - Peripheral vascular disease, unspecified Status: Acute Assessment and Plan: Continue metoprolol and plavix. (14) Peripheral arterial disease: Code(s): I73.9 - Peripheral vascular disease, unspecified Status: Acute (15) Insulin dependent type 2 diabetes mellitus: Code(s): E11.9 - Type 2 diabetes mellitus without complications; Z79.4 - ocean transportation intermediary (current) use of insulin
[2024-07-10 18:11] LABS: Glucose Point of Care 293 mg/dl (65-105)
[2024-07-10] MEDS: MIRTAZAPINE SOLTAB 15 MG TAB.DISPER FEED TUBE (20:21)
[2024-07-10 21:05] LABS: Glucose Point of Care 292 mg/dl (65-105)
[2024-07-10] MEDS: BUDESONIDE RESPULE NEB 0.5 MG/2 ML AMP INHALATION (21:15)
[2024-07-11] VITALS (13 sets, daily range): BP systolic 117–151; BP diastolic 49–71; PULSE 20–79; RESP 18–71; TEMP 36.4–36.6; O2SAT 94–100
[2024-07-11 00:32] LABS: Glucose Point of Care 286 mg/dl (65-105)
[2024-07-11] MEDS: INSULIN ASPART (*BKC) 100 UNITS/ML SUB-Q ×3 (00:35→12:43)
[2024-07-11] MEDS: INSULIN ASPART (*BKC) 100 UNITS/ML 14 UNITS SUB-Q ×4 (00:36→18:13)
[2024-07-11] MEDS: IPRATROPIUM 0.5 MG/ALBUTEROL SULFATE 2.5 MG AMPUL.NEB 3 ML INHALATION ×4 (02:45→20:01)
[2024-07-11] MEDS: traMADol HCL (*CRX) 50 MG TABLET FEED TUBE ×2 (03:41→21:12)
[2024-07-11 05:28] LABS: Estimated CRCL calculation 98 ml/min; Estimated Glomerular Filt Rate > 60
[2024-07-11 05:33] LABS: Vancomycin Trough 15.9 ug/mL (10.0-20.0)
[2024-07-11] MEDS: metroNIDAZOLE 500 MG/ISO 100ML 500 MG/100 ML BAG 100 MG IVPB (05:59)
[2024-07-11] MEDS: ONDANSETRON HCL ODT 4 MG TABLET PO (06:08)
[2024-07-11 07:19] LABS: Glucose Point of Care 269 mg/dl (65-105)
[2024-07-11] MEDS: VANCOMYCIN 1,500 MG/NS 500 ML 1,500 MG/500 ML BAG 250 MG IVPB (08:39)
[2024-07-11] MEDS: ACIDOPHILUS/BULGARICUS CHEWABLE TABLET 1 TABLET FEED TUBE (08:53)
[2024-07-11] MEDS: guaiFENesin 12 HR 600 MG TABCR 1200 MG PO ×2 (08:53→21:12)
[2024-07-11] MEDS: LANSOPRAZOLE ODT 30 MG TAB.RAP.DR FEED TUBE ×2 (08:53→18:10)
[2024-07-11] MEDS: ATORVASTATIN 40 MG TABLET FEED TUBE (08:53)
[2024-07-11] MEDS: amLODIPine BESYLATE 5 MG TABLET FEED TUBE (08:53)
[2024-07-11] MEDS: METOPROLOL TARTRATE 50 MG TAB FEED TUBE ×2 (08:54→21:12)
[2024-07-11] MEDS: ENOXAPARIN 40 MG/0.4 ML SYRINGE SUB-Q (08:54)
[2024-07-11] MEDS: AMIODARONE HCL 100 MG TABLET FEED TUBE (08:54)
[2024-07-11] MEDS: levoFLOXacin 750 MG/D5W 150 ML 750 MG/150 ML BAG 100 MG IVPB (08:55)
--- NOTE | 2024-07-11 09:32 | PM.PNPUL ---
Progress Note: A&P Assessment and Plan (1) Lobar pneumonia: Code(s): J18.1 - Lobar pneumonia, unspecified organism Status: Acute Assessment and Plan: patient presents with 2-3 days worsening her cough with phlegm production or, he has no dyspnea on exertion or change in his shortness of breath. He had no white blood cell count. COVID influenza RSV RT PCR negative. CT scan of the chest with worsening left lingular infiltrate and improved left lower lobe consolidation and superior segment of the left lower lobe consolidations compared to 03/21/2024. Patient is MRSA nasal swab positive. For sputum contains greater than 25 epithelial cells per high-power field and therefore not cultured. Plan: Agree with treatment for possible pneumonia. Continue vancomycin, levofloxacin and Flagyl, all day 2. Legionella, pneumococcal urine studies sent. Mycoplasma IgM pending. will reorder sputum culture. Goal saturation 90-94%. Currently the patient is on 0.5 L with saturations 96%. I decreased him to room air and saturations were 93%. I told the patient that he could go without oxygen and he said this makes him very anxious and he would prefer I leave it on 0.5 L which I have done. Patient may remain not have COPD. he has no wheezing. Currently is on DuoNebs q.6 hours, guaifenesin 1200 b.i.d. At this time I do not feel this is a COPD exacerbation and do not recommend inhaled or systemic steroids. Discussed with Dr. Kumari, will follow with you. 07/10/2024: Patient states that he is breathing okay. His cough is the same as his usual with a little bit of phlegm production. His raspy voice continues and he has positional stridor. His white blood cell count is 8.5 creatinine is 0.8. He is afebrile. Suspect the majority of patient's respiratory symptoms are related to his tracheal stenosis. will continue to treat for possible pneumonia as he has new lingular infiltrates on his CT scan. Plan: Will continue vancomycin, levofloxacin and Flagyl, all day 3. If the patient remains clinically stable blood cultures are negative will begin deescalation on 07/11/2024. Continue DuoNebs q.6 hours and guaifenesin 1200 BID. 07/11/24: Patient states he is breathing at his baseline. He still has some shortness of breath. He has a raspy voice with intermittent stridor. He is afebrile. He remains on 0.5 mL nasal cannula with saturations 96%. Plan: continue vancomycin and Levaquin, day 4. Flagyl is discontinued today. No wheezes. Continue DuoNebs q.6 and guaifenesin 1200/2 b.i.d.. Discussed with dayana Mercer, will follow with you. (2) Tracheostomy status: Code(s): Z93.0 - Tracheostomy status Status: Acute Assessment and Plan: Patient is status post tracheostomy on 04/02/2024 for failure to wean. He was transferred to LTAC and he tells me he was de cannulated approximately 5 weeks ago. Since then he has a raspy voice and at times feels as though his phlegm is stuck in his throat. On physical scan M he intermittently has inspiratory stridorous sounds on deep inspiration. Patient is in no respiratory distress and has no inspiratory stridor sounds on normal respiration. Plan: Will obtain CT scan of the neck today. ENT consult has been placed and they will be available on 07/10/2024. Later in the day, CT scan of the neck that demonstrated focal stenosis at the site of his tracheostomy. 07/10/2024: Patient has positional inspiratory stridor worse when he was laying relatively flat and improved when he said him upright. Raspy voice continues. Plan: Await ENT evaluation. Patient received Plavix yesterday. I will hold the Plavix today and have the hospitalist discussed with Cardiology best treatment options for him with a stent on 03/04/2024 and the likely need for a tracheal procedure. Later in the day the patient was evaluated by ENT but the patient refused any airway inspection. Recommen
[2024-07-11] MEDS: INSULIN GLARGINE (*BKC) 100 UNITS/ML 25 UNITS SUB-Q ×2 (10:35→21:27)
[2024-07-11 12:07] LABS: Glucose Point of Care 214 mg/dl (65-105)
--- NOTE | 2024-07-11 16:08 | PM.IMPN ---
Progress Note: A&P Assessment and Plan (1) COPD exacerbation: Code(s): J44.1 - Chronic obstructive pulmonary disease with (acute) exacerbation Status: Acute Assessment and Plan: - Freezer Laboratory Technician following. - Steroids discontinued. - Continue Budesonide, duoneb updrafts, mucinex. - Currently on vancomycin, levaquin and flagyl. - Patient comfortable only with supplemental O2, now on 0.5L/NC. - Further mgt per java mobile developer. (2) Lobar pneumonia: Code(s): J18.1 - Lobar pneumonia, unspecified organism Status: Acute Assessment and Plan: - Currently on 1L supplemental O2 for sats > 90 %. - Continue IV abx as noted above. - Urine legionella Ag and Pneumophila Ag pending. - Further mgt per java mobile developer. (3) Tracheal stenosis: Code(s): J39.8 - Other specified diseases of upper respiratory tract Status: Acute Assessment and Plan: - CT neck soft-tissue done 07/09/24 .shows focal stenosis of the trachea at the site of prior tracheostomy. - Patient with audible stridor. - Patient refused ENT evaluation. - Plans underway to transfer patient to [facility]. - Continue supplemental O2 for patient comfort to maintain sats > 90 %. (4) Acute respiratory failure: Qualifiers: Respiratory failure complication: unspecified whether with hypoxia or hypercapnia Qualified Code(s): J96.00 - Acute respiratory failure, unspecified whether with hypoxia or hypercapnia Code(s): J96.00 - Acute respiratory failure, unspecified whether with hypoxia or hypercapnia Status: Acute Assessment and Plan: - Possibly related to COPD exacerbation +/vs Lobar PNA +/vs tracheal stenosis. - Appears to be stabilizing. - Awaiting [facility] transfer for possible tracheal stenosis eval. - Continue supplemental O2 to maintain sats > 90 %. (5) Coronary artery disease involving [place] coronary artery of [place] heart: Qualifiers: Associated angina: without angina Qualified Code(s): I25.10 - Atherosclerotic heart disease of [place] coronary artery without angina pectoris Code(s): I25.10 - Atherosclerotic heart disease of [place] coronary artery without angina pectoris Status: Acute Assessment and Plan: - Continue metoprolol and plavix. (6) Diabetic peripheral neuropathy: Code(s): E11.42 - Type 2 diabetes mellitus with diabetic polyneuropathy Status: Acute Assessment and Plan: - BGL moderately elevated. - Insulin dose slightly adjusted. - Continue to adjust insulin for optimal control. (7) Paroxysmal A-fib: Code(s): I48.0 - Paroxysmal atrial fibrillation Status: Acute Assessment and Plan: - Stable. - Continue metoprolol and amiodarone. (8) Chronic kidney disease, stage 3: Code(s): N18.3 - Chronic kidney disease, stage 3 (moderate) Status: Chronic Assessment and Plan: - Currently Cr trending wnl. - BUN still elevated. - Continue to trend renal panel. - Avoid nephrotoxic agents. (9) Normocytic anemia: Code(s): D64.9 - Anemia, unspecified Status: Acute Assessment and Plan: - Hgb stable. - Continue to monitor closely. (10) Dyslipidemia: Code(s): E78.5 - Hyperlipidemia, unspecified Status: Acute Assessment and Plan: - Stable. (11) Tobacco abuse: Code(s): Z72.0 - Tobacco use Status: Acute Assessment and Plan: - Nicotine patch PRN. (12) Essential (primary) hypertension: Code(s): I10 - Essential (primary) hypertension Status: Chronic Assessment and Plan: - BP well controlled. - Continue amlodipine and metoprolol. (13) Peripheral vascular disease: Code(s): I73.9 - Peripheral vascular disease, unspecified Status: Acute Assessment and Plan: Continue metoprolol and plavix. (14) Peripheral arterial disease: Code(s): I73.9 - Peripheral vascular disease, unspecified Status: Acute (15) Insulin dependent typ
[2024-07-11 17:57] LABS: Glucose Point of Care 143 mg/dl (65-105)
[2024-07-11] MEDS: SILVER SULFADIAZINE 1% CR 400 GM JAR (*BKC) 1 APPLIC TOPICAL (18:10)
[2024-07-11] MEDS: ZINC OXIDE 20% OINT 30 GM TUBE 1 APPLIC TOPICAL (18:10)
[2024-07-11] MEDS: MIRTAZAPINE SOLTAB 15 MG TAB.DISPER FEED TUBE (21:13)
[2024-07-11 21:49] LABS: Glucose Point of Care 145 mg/dl (65-105)
[2024-07-11 23:48] LABS: Glucose Point of Care 145 mg/dl (65-105)
[2024-07-12] VITALS (12 sets, daily range): BP systolic 105–134; BP diastolic 41–47; PULSE 61–72; RESP 16–20; TEMP 36.5–37.2; O2SAT 96–99
[2024-07-12] MEDS: INSULIN ASPART (*BKC) 100 UNITS/ML 14 UNITS SUB-Q ×3 (00:36→17:34)
[2024-07-12] MEDS: ACETAMINOPHEN 325 MG TABLET 650 MG FEED TUBE (01:46)
[2024-07-12] MEDS: IPRATROPIUM 0.5 MG/ALBUTEROL SULFATE 2.5 MG AMPUL.NEB 3 ML INHALATION ×4 (02:06→20:53)
[2024-07-12] MEDS: ONDANSETRON HCL ODT 4 MG TABLET PO (05:55)
[2024-07-12] MEDS: traMADol HCL (*CRX) 50 MG TABLET FEED TUBE ×2 (05:55→20:39)
[2024-07-12 06:25] LABS: Glucose Point of Care 115 mg/dl (65-105)
[2024-07-12] MEDS: VANCOMYCIN 1,500 MG/NS 500 ML 1,500 MG/500 ML BAG 250 MG IVPB (08:26)
--- NOTE | 2024-07-12 08:27 | PM.PNPUL ---
Progress Note: A&P Assessment and Plan (1) Lobar pneumonia: Code(s): J18.1 - Lobar pneumonia, unspecified organism Status: Acute Assessment and Plan: patient presents with 2-3 days worsening her cough with phlegm production or, he has no dyspnea on exertion or change in his shortness of breath. He had no white blood cell count. COVID influenza RSV RT PCR negative. CT scan of the chest with worsening left lingular infiltrate and improved left lower lobe consolidation and superior segment of the left lower lobe consolidations compared to 03/21/2024. Patient is MRSA nasal swab positive. For sputum contains greater than 25 epithelial cells per high-power field and therefore not cultured. Plan: Agree with treatment for possible pneumonia. Continue vancomycin, levofloxacin and Flagyl, all day 2. Legionella, pneumococcal urine studies sent. Mycoplasma IgM pending. will reorder sputum culture. Goal saturation 90-94%. Currently the patient is on 0.5 L with saturations 96%. I decreased him to room air and saturations were 93%. I told the patient that he could go without oxygen and he said this makes him very anxious and he would prefer I leave it on 0.5 L which I have done. Patient may remain not have COPD. he has no wheezing. Currently is on DuoNebs q.6 hours, guaifenesin 1200 b.i.d. At this time I do not feel this is a COPD exacerbation and do not recommend inhaled or systemic steroids. Discussed with Dr. Kumari, will follow with you. 07/10/2024: Patient states that he is breathing okay. His cough is the same as his usual with a little bit of phlegm production. His raspy voice continues and he has positional stridor. His white blood cell count is 8.5 creatinine is 0.8. He is afebrile. Suspect the majority of patient's respiratory symptoms are related to his tracheal stenosis. will continue to treat for possible pneumonia as he has new lingular infiltrates on his CT scan. Plan: Will continue vancomycin, levofloxacin and Flagyl, all day 3. If the patient remains clinically stable blood cultures are negative will begin deescalation on 07/11/2024. Continue DuoNebs q.6 hours and guaifenesin 1200 BID. 07/11/24: Patient states he is breathing at his baseline. He still has some shortness of breath. He has a raspy voice with intermittent stridor. He is afebrile. He remains on 0.5 mL nasal cannula with saturations 96%. Plan: continue vancomycin and Levaquin, day 4. Flagyl is discontinued today. No wheezes. Continue DuoNebs q.6 and guaifenesin 1200/2 b.i.d.. 07/12/2024: When I enter the room the patient was sleeping on room air his saturations were 92%. He had no stridor when he was sleeping and no respiratory distress. When I woke him up and he started moving around and talking he had coarse mild inspiratory stridorous sounds. Overall he says he is breathing normal. He denies cough or phlegm production. He is afebrile. His weight is 106.9. Cumulative he is -1.6 L since admission. The bedside nurse stated that [facility] called last night and there were no available beds. Plan: Breathing at his baseline. On room air, goal saturation 90-94%. Continue vancomycin and Levaquin, day 5. Recommend completing 7 days of vancomycin and Levaquin. Continue DuoNebs q.6 hours and guaifenesin 1200 b.i.d.. Discussed with dayana Mercer, will sign off, call with questions. (2) Tracheostomy status: Code(s): Z93.0 - Tracheostomy status Status: Acute Assessment and Plan: Patient is status post tracheostomy on 04/02/2024 for failure to wean. He was transferred to LTAC and he tells me he was de cannulated approximately 5 weeks ago. Since then he has a raspy voice and at times feels as though his phlegm is stuck in his throat. On physical scan M he intermittently has inspiratory stridorous sounds on deep inspiration. Patient is in no respiratory distress and has no inspiratory stridor sounds on [place]
[2024-07-12] MEDS: levoFLOXacin 750 MG/D5W 150 ML 750 MG/150 ML BAG 100 MG IVPB (09:56)
[2024-07-12] MEDS: ATORVASTATIN 40 MG TABLET FEED TUBE (09:56)
[2024-07-12] MEDS: AMIODARONE HCL 100 MG TABLET FEED TUBE (09:56)
[2024-07-12] MEDS: guaiFENesin 12 HR 600 MG TABCR 1200 MG PO ×2 (09:56→20:39)
[2024-07-12] MEDS: LANSOPRAZOLE ODT 30 MG TAB.RAP.DR FEED TUBE ×2 (09:56→15:01)
[2024-07-12] MEDS: ACIDOPHILUS/BULGARICUS CHEWABLE TABLET 1 TABLET FEED TUBE (09:56)
[2024-07-12] MEDS: ENOXAPARIN 40 MG/0.4 ML SYRINGE SUB-Q (09:57)
[2024-07-12] MEDS: METOPROLOL TARTRATE 50 MG TAB FEED TUBE ×2 (09:57→20:38)
[2024-07-12] MEDS: CLOPIDOGREL BISULFATE 75 MG TABLET FEED TUBE (09:57)
[2024-07-12] MEDS: amLODIPine BESYLATE 5 MG TABLET FEED TUBE (09:57)
[2024-07-12] MEDS: ZINC OXIDE 20% OINT 30 GM TUBE 1 APPLIC TOPICAL (09:58)
[2024-07-12] MEDS: SILVER SULFADIAZINE 1% CR 400 GM JAR (*BKC) 1 APPLIC TOPICAL (09:58)
[2024-07-12] MEDS: INSULIN GLARGINE (*BKC) 100 UNITS/ML 25 UNITS SUB-Q (10:12)
--- NOTE | 2024-07-12 11:45 | PCNFU ---
Nutrition Follow-Up Complete: Moderate Protein Calorie Malnutrition as related to increased protein needs in the setting of chronic disease as evidenced by < 75% of Estimated Energy Requirements for > 1 month and significant weight loss of 32 ibs (12%) in 3 months. Goal:Meet estimated nutritional needs Patient is meeting current goal. No new goal. Pt current nutrition is Vital AF 1.2 at 70 ml/hr. Last recorded weight is 106.9 kg, up from 105.9 kg on admit. Bowel Motility: No BM reported-spoke with nursing today regarding Miralax PRN order. Labs Reviewed: no new labs to report. Meds Noted: Remeron, Lantus, NovoLog, Levaquin. Skin: WNL Additional Notes: Patient remains on G tube feedings of Vital AF 1.2 at 70 ml/hr and tolerating per nursing. Tube feedings providing 1848 kcal/116 gm protein/1240 ml water. Meeting 100% of kcal and protein needs. Flush 240 ml q 4 hours. Will monitor weight, labs, skin, tube feedings, meds every Monday and Monday.
[2024-07-12 11:58] LABS: Glucose Point of Care 202 mg/dl (65-105)
[2024-07-12] MEDS: INSULIN ASPART (*BKC) 100 UNITS/ML SUB-Q (12:13)
[2024-07-12] MEDS: ALPRAZolam (*CRX) 0.5 MG TABLET PO ×2 (15:01→20:40)
[2024-07-12 16:54] LABS: Glucose Point of Care 142 mg/dl (65-105)
--- NOTE | 2024-07-12 17:15 | PM.IMPN ---
Progress Note: A&P Assessment and Plan (1) COPD exacerbation: Code(s): J44.1 - Chronic obstructive pulmonary disease with (acute) exacerbation Status: Acute Assessment and Plan: - Turn Down Attendant following on the side for now. - Steroids discontinued. - Continue Budesonide, duoneb updrafts, mucinex. - Currently on vancomycin, levaquin. Flagyl discontinued. - Currently comfortable on RA with sats > 90 %. - Further mgt per garde manger. (2) Lobar pneumonia: Code(s): J18.1 - Lobar pneumonia, unspecified organism Status: Acute Assessment and Plan: - Currently on RA for sats > 90 %. - Continue IV Vanc and Levaquin. - Urine legionella Ag and Pneumophila Ag pending. (3) Tracheal stenosis: Code(s): J39.8 - Other specified diseases of upper respiratory tract Status: Acute Assessment and Plan: - CT neck soft-tissue done 07/09/24 .shows focal stenosis of the trachea at the site of prior tracheostomy. - Patient with audible stridor. - Patient refused ENT evaluation at this facility. - Plans underway to transfer patient to [facility] and [facility] contacted as well. - Currently good O2 sats on RA > 90 %. (4) Acute respiratory failure: Qualifiers: Respiratory failure complication: unspecified whether with hypoxia or hypercapnia Qualified Code(s): J96.00 - Acute respiratory failure, unspecified whether with hypoxia or hypercapnia Code(s): J96.00 - Acute respiratory failure, unspecified whether with hypoxia or hypercapnia Status: Acute Assessment and Plan: - Possibly related to COPD exacerbation +/vs Lobar PNA +/vs tracheal stenosis. - Appears to be stabilizing. - Awaiting [facility] transfer for possible tracheal stenosis eval or possibly [facility]. - Currently good O2 sars > 90 % on RA. (5) Coronary artery disease involving [place] coronary artery of [place] heart: Qualifiers: Associated angina: without angina Qualified Code(s): I25.10 - Atherosclerotic heart disease of [place] coronary artery without angina pectoris Code(s): I25.10 - Atherosclerotic heart disease of [place] coronary artery without angina pectoris Status: Acute Assessment and Plan: - Continue metoprolol and plavix. (6) Diabetic peripheral neuropathy: Code(s): E11.42 - Type 2 diabetes mellitus with diabetic polyneuropathy Status: Acute Assessment and Plan: - BGL moderately elevated. - Insulin dose slightly adjusted. - Continue to adjust insulin for optimal control. (7) Paroxysmal A-fib: Code(s): I48.0 - Paroxysmal atrial fibrillation Status: Acute Assessment and Plan: - Stable. - Continue metoprolol and amiodarone. (8) Chronic kidney disease, stage 3: Code(s): N18.3 - Chronic kidney disease, stage 3 (moderate) Status: Chronic Assessment and Plan: -BUN levels possibly related to chronic hypoxia. - Continue to avoid nephrotoxic agents. (9) Normocytic anemia: Code(s): D64.9 - Anemia, unspecified Status: Acute Assessment and Plan: - Hgb stable. - Continue to monitor closely. (10) Dyslipidemia: Code(s): E78.5 - Hyperlipidemia, unspecified Status: Acute Assessment and Plan: - Continue statin. (11) Tobacco abuse: Code(s): Z72.0 - Tobacco use Status: Acute Assessment and Plan: - Nicotine patch PRN. (12) Essential (primary) hypertension: Code(s): I10 - Essential (primary) hypertension Status: Chronic Assessment and Plan: - BP well controlled. - Continue amlodipine and metoprolol. (13) Peripheral vascular disease: Code(s): I73.9 - Peripheral vascular disease, unspecified Status: Acute Assessment and Plan: Continue metoprolol and plavix. (14) Peripheral arterial disease: Code(s): I73.9 - Peripheral vascular disease, unspecified Status: Acute Assessment and Plan: Continue Plavix and statin (15) In
[2024-07-12] MEDS: MIRTAZAPINE SOLTAB 15 MG TAB.DISPER FEED TUBE (20:39)
[2024-07-13] VITALS (23 sets, daily range): BP systolic 127–151; BP diastolic 44–88; PULSE 55–96; RESP 16–26; TEMP 35.2–36.7; O2SAT 92–100
[2024-07-13 00:46] LABS: Glucose Point of Care 128 mg/dl (65-105)
[2024-07-13] MEDS: IPRATROPIUM 0.5 MG/ALBUTEROL SULFATE 2.5 MG AMPUL.NEB 3 ML INHALATION ×4 (02:40→19:58)
[2024-07-13 04:59] LABS: Glucose Point of Care 182 mg/dl (65-105)
[2024-07-13 07:21] LABS: Estimated CRCL calculation 88 ml/min; Estimated Glomerular Filt Rate > 60
[2024-07-13 07:42] LABS: Vancomycin Trough 19.4 ug/mL (10.0-20.0)
[2024-07-13] MEDS: levoFLOXacin 750 MG/D5W 150 ML 750 MG/150 ML BAG 100 MG IVPB (08:07)
[2024-07-13] MEDS: traMADol HCL (*CRX) 50 MG TABLET FEED TUBE ×2 (08:44→17:18)
[2024-07-13] MEDS: ALPRAZolam (*CRX) 0.5 MG TABLET PO ×3 (08:44→21:43)
[2024-07-13] MEDS: CLOPIDOGREL BISULFATE 75 MG TABLET FEED TUBE (08:45)
[2024-07-13] MEDS: ATORVASTATIN 40 MG TABLET FEED TUBE (08:45)
[2024-07-13] MEDS: amLODIPine BESYLATE 5 MG TABLET FEED TUBE (08:45)
[2024-07-13] MEDS: METOPROLOL TARTRATE 50 MG TAB FEED TUBE ×2 (08:45→20:32)
[2024-07-13] MEDS: guaiFENesin 12 HR 600 MG TABCR 1200 MG PO ×2 (08:45→20:32)
[2024-07-13] MEDS: ACIDOPHILUS/BULGARICUS CHEWABLE TABLET 1 TABLET FEED TUBE (08:46)
[2024-07-13] MEDS: LANSOPRAZOLE ODT 30 MG TAB.RAP.DR FEED TUBE ×2 (08:46→17:18)
[2024-07-13] MEDS: AMIODARONE HCL 100 MG TABLET FEED TUBE (08:46)
[2024-07-13] MEDS: ENOXAPARIN 40 MG/0.4 ML SYRINGE SUB-Q (09:01)
[2024-07-13] MEDS: SILVER SULFADIAZINE 1% CR 400 GM JAR (*BKC) 1 APPLIC TOPICAL (09:01)
[2024-07-13] MEDS: ZINC OXIDE 20% OINT 30 GM TUBE 1 APPLIC TOPICAL (09:01)
[2024-07-13] MEDS: INSULIN GLARGINE (*BKC) 100 UNITS/ML 25 UNITS SUB-Q ×2 (09:09→20:46)
[2024-07-13] MEDS: VANCOMYCIN 1,250 MG/NS 250 ML 1,250 MG/250 ML BAG 166.67 MG IVPB (10:21)
[2024-07-13 12:02] LABS: Glucose Point of Care 256 mg/dl (65-105)
[2024-07-13] MEDS: INSULIN ASPART (*BKC) 100 UNITS/ML SUB-Q (12:21)
[2024-07-13] MEDS: INSULIN ASPART (*BKC) 100 UNITS/ML 14 UNITS SUB-Q (12:22)
--- NOTE | 2024-07-13 12:34 | PM.IMPN ---
Progress Note: A&P Assessment and Plan (1) COPD exacerbation: Code(s): J44.1 - Chronic obstructive pulmonary disease with (acute) exacerbation Status: Acute Assessment and Plan: - Hematology Technician following on the side for now. - Steroids discontinued. - Continue Budesonide, duoneb updrafts, mucinex. - Currently on vancomycin, levaquin for 7 days treatment. Flagyl discontinued. - Currently comfortable on RA with sats > 90 %. - Continue to monitor closely. (2) Lobar pneumonia: Code(s): J18.1 - Lobar pneumonia, unspecified organism Status: Acute Assessment and Plan: - Currently on RA for sats > 90 %. - Continue IV Vanc and Levaquin. - Urine legionella Ag and Pneumophila Ag pending. (3) Tracheal stenosis: Code(s): J39.8 - Other specified diseases of upper respiratory tract Status: Acute Assessment and Plan: - CT neck soft-tissue done 07/09/24 - ocal stenosis of the trachea at the site of prior tracheostomy. - Patient with audible stridor. - Patient refused ENT evaluation at this facility. - Awaiting transfer to [facility]. We'll consider [facility] as well if patient still here in 2 days. - Currently good O2 sats on RA > 90 %. (4) Acute respiratory failure: Qualifiers: Respiratory failure complication: unspecified whether with hypoxia or hypercapnia Qualified Code(s): J96.00 - Acute respiratory failure, unspecified whether with hypoxia or hypercapnia Code(s): J96.00 - Acute respiratory failure, unspecified whether with hypoxia or hypercapnia Status: Acute Assessment and Plan: - Possibly related to COPD exacerbation +/vs Lobar PNA +/vs tracheal stenosis. - Appears stabilized. - Awaiting [facility] transfer for tracheal stenosis eval. Consider [facility] as well. - Currently good O2 sats > 90 % on RA. (5) Coronary artery disease involving [place] coronary artery of [place] heart: Qualifiers: Associated angina: without angina Qualified Code(s): I25.10 - Atherosclerotic heart disease of [place] coronary artery without angina pectoris Code(s): I25.10 - Atherosclerotic heart disease of [place] coronary artery without angina pectoris Status: Acute Assessment and Plan: - Continue metoprolol and plavix. (6) Diabetic peripheral neuropathy: Code(s): E11.42 - Type 2 diabetes mellitus with diabetic polyneuropathy Status: Acute Assessment and Plan: - BGL labile elevated. - Monitor for now. - Continue to adjust insulin for optimal control. (7) Paroxysmal A-fib: Code(s): I48.0 - Paroxysmal atrial fibrillation Status: Acute Assessment and Plan: - Stable. - Continue metoprolol and amiodarone. (8) Chronic kidney disease, stage 3: Code(s): N18.3 - Chronic kidney disease, stage 3 (moderate) Status: Chronic Assessment and Plan: -BUN levels possibly chronically related to chronic hypoxia. - Continue to avoid nephrotoxic agents. (9) Normocytic anemia: Code(s): D64.9 - Anemia, unspecified Status: Acute Assessment and Plan: - Hgb stable. - Continue to monitor closely. (10) Dyslipidemia: Code(s): E78.5 - Hyperlipidemia, unspecified Status: Acute Assessment and Plan: - Continue statin. (11) Tobacco abuse: Code(s): Z72.0 - Tobacco use Status: Acute Assessment and Plan: - Nicotine patch PRN. (12) Essential (primary) hypertension: Code(s): I10 - Essential (primary) hypertension Status: Chronic Assessment and Plan: - BP well controlled. - Continue amlodipine and metoprolol. (13) Peripheral vascular disease: Code(s): I73.9 - Peripheral vascular disease, unspecified Status: Acute Assessment and Plan: Continue metoprolol and plavix. (14) Peripheral arterial disease: Code(s): I73.9 - Peripheral vascular disease, unspecified Status: Acute Assessment and Plan: Continue Plavix and s
[2024-07-13 17:04] LABS: Pneumococcal Antigen Urine NOT DETECTED
[2024-07-13 17:12] LABS: Glucose Point of Care 120 mg/dl (65-105)
--- NOTE | 2024-07-13 19:18 | PC.NURSE ---
Patient is refusing IV stick at this time. He states he only is an ultrasound stick. I was made aware we do not have vascular access over the next two days. student specialist made aware of this situation.
[2024-07-13] MEDS: MIRTAZAPINE SOLTAB 15 MG TAB.DISPER FEED TUBE (20:33)
[2024-07-13] MEDS: IPRATROPIUM 0.5 MG/ALBUTEROL SULFATE 2.5 MG AMPUL.NEB 3 ML (21:25)
[2024-07-13 21:46] LABS: Glucose Point of Care 199 mg/dl (65-105)
--- NOTE | 2024-07-13 21:55 | ECG_ITS ---
Test Date: 2024-07-13 22:00:26 Measurements Intervals [place] Rate: 65 P: 28 CO: 178 QRS: 8 QRSD: 113 T: 35 QT: 418 QTc: 435 Interpretive Statements SINUS RHYTHM INTRAVENTRICULAR CONDUCTION DELAY LEFT VENTRICULAR HYPERTROPHY INFERIOR MYOCARDIAL INFARCTION , OF INDETERMINATE AGE EXTENSIVE ANTERIOR INFARCT, AGE INDETERMINATE BASELINE ARTIFACT- I, II, III, AVR, AVL, AVF, V1-V6 ABNORMAL ECG Compared to ECG 07/08/2024 04:55:17 No significant changes Electronically Signed On 07-14-2024 07:54:31 CDT by Monico Guerra D.O.
[2024-07-13 22:09] LABS: Alveolar/Arterial O2 Gradient 180.2 mmHg; Base Excess ABG 0.9 mEq/l (+/-2.0); Fractional Inspired Oxygen 60 %; HCO3 ABG 34.9 mEq/l (22.0-26.0); Oxygen Content ABG 13.7 %vol (16.0-22.0); Oxygen Saturation ABG 89.7 % (95.0-100.0); Oxyhemoglobin 91.8 % THb (90.0-100.0); PO2 ABG 88.9 mmHg (80.0-100.0); PO2 FiO2 Ratio Arterial Blood 1.48 %; Total Hemoglobin 10.5 g/dL (12.0-18.0)
[2024-07-13 22:11] LABS: Modified Allen's Test Pass; PCO2 ABG 144.3 mmHg (35.0-45.0); Site Drawn LEFT RADIAL; pH ABG 7.001 (7.350-7.450)
[2024-07-13 22:12] LABS: Device NON-REBREATHER MASK
--- NOTE | 2024-07-13 22:24 | PC.NURSE ---
Patient's sister Mandyne called and made aware of transfer to ICU, change in mental and respiratory status including need for intubation, central line placement, and head CT, Ct angiogram head and brain. Consent received for central line placement and angiogram and [id number] by second nurse Geni Castro RN.
[2024-07-13 22:25] LABS: Glucose Point of Care 293 mg/dl (65-105)
[2024-07-13] MEDS: ETOMIDATE 20 MG/10 ML AMPUL IV PUSH (22:47)
[2024-07-13] MEDS: SUCCINYLCHOLINE CHLORIDE 20 MG/ML 10 ML VIAL 100 MG IV PUSH (22:48)
[2024-07-13] MEDS: PROPOFOL IV EMULSION 100 ML 3.15 MG IV CONT (22:50)
[2024-07-13] MEDS: MIDAZOLAM HCL (*CRX) 2 MG/2 ML VIAL 4 MG IV PUSH (23:11)
--- NOTE | 2024-07-13 23:21 | P.RRN_ITS ---
Critical Care Event Note Summary Code activated: Yes (Rapid response) Narrative: This case had a high probability of a clinically significant, sudden, or life threatening deterioration of this patient's condition which required my full and direct attention, intervention and personal management. I was alerted to a rapid response on this patient at 10:00 p.m.. Upon arrival to the patient's room he was found to have a GCS of 6, not responding to verbal and tactile stimulation, tachypneic and overall unwell. Patient is here for treatment of left lobar pneumonia. He has been receiving vancomycin, Flagyl and Levaquin. Secondary to his tracheal stenosis he is awaiting a bed at [facility] ICU. Baseline labs were obtained including ABG demonstrating a pH of 7.001, pCO2 of 144.3, PO2 of 88.9 bicarb of 34.9 on 15 L non-rebreather. Given his GCS of 6, his history of tracheal stenosis and his obvious new development acute hypercapnic respiratory failure with respiratory acidosis the decision was made to intubate. Patient was moved to ICU at this time and intubation occurred with 1 attempt, 7.0 tube using a 4 blade without difficulty. Patient's vital signs are stable with tidal volume currently 440, 100% FiO2, respiratory rate of 24 and peep of 5. Patient on propofol drip to maintain sedation. Patient's chest x-ray shows successful intubation. Left lung is nearly sofi out with consolidation forming in the right lower lobe. I called [facility] as he was on the wait list for transfer there and updated them of the patient's condition, they advised they should be able to accommodate the patient and will call back with his bed. Critical care time: 75 - 104 mins
--- NOTE | 2024-07-13 23:26 | PM.TDS ---
Transfer Discharge Sum: Prov Provider Date of admission: 07/08/24 06:22 Primary care physician: Chan Rizo, MD Admitting clinician: Yahir Dubon MD Attending physician on admission: Jefferson Kumari Consults: 07/08/24 Consult to Respiratory Therapy Routine Reason for Consult:: PEP therapy 07/09/24 10:36 Consult to Physician Routine Comment: Spoke to 1042 (-) Consulting Provider: Horacio Cordero almond blancher/MD group to consult: pulmonary Reason for consultation: pneumonia Has provider been notified: Yes 07/09/24 12:35 Consult to Physician Routine Comment: for 07.10.24 @ 0840--/us Consulting Provider: Marquez Denis almond blancher/MD group to consult: ent Reason for consultation: status post tracheostomy, recently decannulated, with mild stridor Has provider been notified: Yes Attending physician on discharge: Eunice Mckeon Discharging clinician: Eunice Mckeon Anticipated date of transfer: 07/13/24 Receiving physician/facility: [facility]. DS: Admitting Diagnosis Discharge Date 07/13/24 Admitting Diagnosis COPD exacerbation Lobar pneumonia Acute respiratory failure Chronic kidney disease stage 3 Chronic normocytic anemia Chronic dyslipidemia Diabetic peripheral neuropathy Tobacco abuse Hypertension Coronary artery disease Peripheral vascular disease Peripheral arterial disease Type 2 diabetes mellitus insulin-dependent DS: Discharge Diagnosis Discharge Diagnosis (1) COPD exacerbation: Code(s): J44.1 - Chronic obstructive pulmonary disease with (acute) exacerbation Status: Acute Assessment and Plan: - Credit Representative following on the side for now. - Steroids discontinued. - Continue Budesonide, duoneb updrafts, mucinex. - Currently on vancomycin, levaquin for 7 days treatment. Flagyl discontinued. - Currently comfortable on RA with sats > 90 %. - Continue to monitor closely. 07/13/24: Patient with development of acute hypercapnic respiratory failure, intubated and moved to ICU. (2) Lobar pneumonia: Code(s): J18.1 - Lobar pneumonia, unspecified organism Status: Acute Assessment and Plan: - Currently on RA for sats > 90 %. - Continue IV Vanc and Levaquin. - Urine legionella Ag and Pneumophila Ag pending. 07/13/24: Patient with development of acute hypercapnic respiratory failure, intubated and moved to ICU. (3) Tracheal stenosis: Code(s): J39.8 - Other specified diseases of upper respiratory tract Status: Acute Assessment and Plan: - CT neck soft-tissue done 07/09/24 - ocal stenosis of the trachea at the site of prior tracheostomy. - Patient with audible stridor. - Patient refused ENT evaluation at this facility. - Awaiting transfer to [facility]. We'll consider [facility] as well if patient still here in 2 days. - Currently good O2 sats on RA > 90 %. 07/13/24: Patient with development of acute hypercapnic respiratory failure, intubated and moved to ICU. (4) Acute respiratory failure: Qualifiers: Respiratory failure complication: unspecified whether with hypoxia or hypercapnia Qualified Code(s): J96.00 - Acute respiratory failure, unspecified whether with hypoxia or hypercapnia Code(s): J96.00 - Acute respiratory failure, unspecified whether with hypoxia or hypercapnia Status: Acute Assessment and Plan: - Possibly related to COPD exacerbation +/vs Lobar PNA +/vs tracheal stenosis. - Appears stabilized. - Awaiting [facility] transfer for tracheal stenosis eval. Consider [facility] as well. - Currently good O2 sats > 90 % on RA. 07/13/24: Patient with development of acute hypercapnic respiratory failure, intubated and moved to ICU. (5) Coronary artery disease involving [place] coronary artery of [place] heart: Qualifiers: Associated angina: without angina Qualified Code(s): I25.10 - Atherosclerotic heart disease of [place] coronary artery without angina pectoris Code(
--- NOTE | 2024-07-13 23:49 | WPDPROCEDUR ---
Procedures Intubation Intubation Date: 07/13/24 Intubation Time: 22:30 A pre-procedural Time-Out was completed immediately before starting the procedure and confirmed: Patient Identification, Site, Procedure, Patient Position and the Availability of Requisite Equipment: Yes Sedative: etomidate Mg given: 20 Paralytic: succinylcholine Mg given: 100 Laryngoscope: Comfort Assist device used: Bougie ET tube size: 7 Tube secured depth (cm): 24 Tube secured location: lips Tube placement confirmation: visualized tube passing through cords, equal breath sounds bilaterally and confirmation by capnometry Patient tolerated procedure: well Intubation complications: none
[2024-07-13 23:55] LABS: Glucose Point of Care 297 mg/dl (65-105)
[2024-07-14 00:15] VITALS: BP 100/35; PULSE 64; RESP 16; TEMP 36.5; O2SAT 100
--- NOTE | 2024-07-14 00:21 | PC.NURSE ---
07/13/[address] Mckeon and patient no longer needs CT of head or CTA head and chest. Ok to cancel and also received order for dustin RODRIGUEZ.
[2024-07-14 00:36] LABS: Alveolar/Arterial O2 Gradient 174.6 mmHg; Base Excess ABG 4.3 mEq/l (+/-2.0); Carboxyhemoglobin 0.5 % THb (0-2.0); Fractional Inspired Oxygen 50 %; HCO3 ABG 28.4 mEq/l (22.0-26.0); Oxygen Content ABG 12.5 %vol (16.0-22.0); Oxygen Saturation ABG 98.8 % (95.0-100.0); Oxyhemoglobin 98.8 % THb (90.0-100.0); PCO2 ABG 40.9 mmHg (35.0-45.0); PO2 ABG 135.9 mmHg (80.0-100.0); PO2 FiO2 Ratio Arterial Blood 2.72 %; Reduced Hemoglobin 0.7 %THb (0-5.0); Total Hemoglobin 8.8 g/dL (12.0-18.0)
[2024-07-14 00:37] LABS: Device VENTILATOR; Modified Allen's Test Pass; Site Drawn RIGHT RADIAL
[2024-07-14 00:39] LABS: Arterial Blood Gas PEEP 5 cmH2O; Arterial Blood Gas Tidal Volume 440 ml; Arterial Blood Gas Vent Mode CMV; Arterial Blood Gas Ventilator rate 24 /MIN
[2024-07-14] MEDS: SODIUM CHLORIDE 0.9% IV 1,000 ML 999 ML IV CONT (00:40)
[2024-07-14 00:42] LABS: Basophils Absolute Auto 0.1 K/mm3 (0.0-0.1); Basophils Percent Auto 0.4 % (0.2-1.2); Eosinophils Absolute Auto 0.1 K/mm3 (0-0.3); Eosinophils Percent Auto 0.6 % (0-4.4); Hematocrit 28.7 % (42.0-52.0); Hemoglobin 8.4 g/dL (14.0-18.0); Immature Granulocyte Absolute 0.28 K/mm3 (0.00-0.031); Immature Granulocyte Percent A 1.9 % (0-0.5); Lymphocytes Percent Auto 6.9 % (18.3-44.2); Mean Corpuscular HGB Conc 29.3 g/dl (32-36); Mean Corpuscular Volume 102.5 fl (80-100); Mean Platelet Volume 10.7 fl (7.4-10.4); Monocytes Absolute Auto 0.7 K/mm3 (0.1-0.6); Neutrophils Absolute Auto 12.3 K/mm3 (1.3-6.7); Neutrophils Percent Auto 85.2 % (45.5-73.1); Platelet Count Result 208 k/mm3 (150-375); Red Cell Distribution Width 17.1 % (11.5-14.5); White Blood Count 14.4 K/mm3 (4.5-10.0)
[2024-07-14 00:55] LABS: Lactic Acid Reflex 1.1 mmol/L (0.7-2.0)
[2024-07-14 00:55] LABS: Alanine Aminotransferase 16 U/L (6-50); Albumin Level 3.1 g/dL (3.5-5.1); Alkaline Phosphatase 68 U/L (38-126); Anion Gap 8 mmol/L (4-12); Aspartate Amino Transferase 28 U/L (17-59); Bilirubin,Total 0.5 mg/dL (0.2-1.3); Blood Urea Nitrogen 47 mg/dL (9-20); Calcium 8.3 mg/dL (8.4-10.2); Carbon Dioxide 25 mmol/L (22-30); Chloride 97 mmol/L (98-107); Estimated CRCL calculation 99 ml/min; Estimated Glomerular Filt Rate > 60; Glucose 297 mg/dL (65-110); Magnesium 1.8 mg/dL (1.6-2.3); Phosphorus 4.6 mg/dL (2.5-4.5); Potassium 4.7 mmol/L (3.4-5.0); Sodium 130 mmol/L (137-145); Triglycerides 111 mg/dL (<150)
[2024-07-14 01:06] LABS: Troponin I < 0.012 ng/mL (0.000-0.034)
[2024-07-14 01:47] LABS: Anisocytosis 1+; Ovalocytes 1+; Platelet Estimate Adequate (Adequate)
[2024-07-14 01:48] LABS: Schistocytes None Seen
[2024-07-15 22:33] LABS: Legionella pneumophila Ag Ur NOT DETECTED
--- NOTE | 2024-07-20 15:21 | PM.EVENT ---
Event Note Event Note Event Note: 07/13/2024 Rapid response was called on the patient and the responding provider (Linda العراقي) planned for intubation however the patient had no IV access. Consent form filled out for femoral central line placement. The patient is status post right [id number] amputation and his vascular anatomy on both sides was distorted. There were no good veins to attempt central line insertion and it was aborted. A large-bore IV was obtained in the right forearm under ultrasound guidance.
[2024-07-24 22:14] LABS: Mycoplasma IgM Antibody Titer 136 U/mL
== END 2024-07-14 01:30 | disposition short-term general hospital (02) | DRG 139 ==
LOC: ANHED 05:38 → ANH2MED 06:41 → ANHICU 07-13 22:17
PROVIDERS: Internal Medicine; Admitting Provider Internal Medicine; Emergency Provider Emergency Medicine; PCP Internal Medicine; Visit Provider Nurse Practitioner Adult Health
DX: J18.1 Lobar pneumonia, unspecified organism (principal); J44.1 Chronic obstructive pulmonary disease with (acute) exacerbation; J44.0 Chronic obstructive pulmonary disease with (acute) lower respiratory infection; J39.8 Other specified diseases of upper respiratory tract; E11.42 Type 2 diabetes mellitus with diabetic polyneuropathy; E11.22 Type 2 diabetes mellitus with diabetic chronic kidney disease; I12.9 Hypertensive chronic kidney disease with stage 1 through stage 4 chronic kidney disease, or unspecified chronic kidney disease; N18.30 Chronic kidney disease, stage 3 unspecified; D64.9 Anemia, unspecified; I25.10 Atherosclerotic heart disease of native coronary artery without angina pectoris; I73.9 Peripheral vascular disease, unspecified; J96.01 Acute respiratory failure with hypoxia; Z20.822 Contact with and (suspected) exposure to COVID-19; F41.9 Anxiety disorder, unspecified; F90.9 Attention-deficit hyperactivity disorder, unspecified type; G89.4 Chronic pain syndrome; K21.9 Gastro-esophageal reflux disease without esophagitis; E78.5 Hyperlipidemia, unspecified; M19.90 Unspecified osteoarthritis, unspecified site; F17.210 Nicotine dependence, cigarettes, uncomplicated; J96.02 Acute respiratory failure with hypercapnia; I48.0 Paroxysmal atrial fibrillation; Z79.4 Long term (current) use of insulin; I25.2 Old myocardial infarction; Z95.5 Presence of coronary angioplasty implant and graft; Z86.718 Personal history of other venous thrombosis and embolism; Z89.511 Acquired absence of right leg below knee; E44.1 Mild protein-calorie malnutrition; Z68.33 Body mass index [BMI] 33.0-33.9, adult; Z22.322 Carrier or suspected carrier of Methicillin resistant Staphylococcus aureus
CPT/HCPCS: 31500; 36415; 36600; 70490; 71045; 71250; 80053; 80202; 81003; 82375; 82565; 82805; 82948; 83036; 83050; 83605; 83735; 83880; 84100; 84478; 84484; 85025; 85055; 86738; 87040; 87070; 87205; 87449; 87637; 87641; 87899; 92610; 93005; 94002; 94640; 99285; A9270; C1751; J0330; J1650; J1815; J1836; J1956; J2250; J2704; J3370; J7030

== ENCOUNTER 2024-07-28 02:53 | Emergency (ER) | payer BC, SELFPAY ==
--- NOTE | ~2024-07-28 | XR_ITS ---
EXAMINATION: XR chest 1V portable DATE: 07/28/2024 03:25 INDICATION: Shortness of breath TECHNIQUE: frontal view of the chest was obtained. COMPARISON: Chest radiograph dated 07/13/2024 FINDINGS: Elevation the left hemidiaphragm. Improving aeration at the left lung base with persistent opacities in the left mid and lower lung zone which could represent atelectasis or pneumonia, possibly with sma ll in the left pleural effusion. Decrease in the prior interstitial and airspace opacities in the rig ht lower lung zone suggesting improvement in pulmonary edema. No pneumothorax or right-sided pleural effusion. Cardiomegaly. IMPRESSION: 1. Volume loss in left hemithorax with improvement in opacities in the left mid and lower lung zone w hich could represent improving atelectasis and/or pneumonia, possibly with small left pleural effusio n. 2. Pulmonary vascular congestion with improvement in likely prior pulmonary edema in the right lower lung zone. 3. Cardiomegaly. Reviewed, dictated and finalized at location [facility]. IMPRESSION: 1. Volume loss in left hemithorax with improvement in opacities in the left mid and lower lung zone which could represent improving atelectasis and/or pneumon ia, possibly with small left pleural effusion. 2. Pulmonary vascular congestion with improvement in likely prior pulmonary ricardo ma in the right lower lung zone. 3. Cardiomegaly.
[2024-07-28 02:54] VITALS: BP 142/130; PULSE 87; RESP 23; TEMP 36.8; O2SAT 97
--- NOTE | 2024-07-28 03:05 | ECG_ITS ---
Test Date: 2024-07-28 03:08:58 Measurements Intervals [place] Rate: 83 P: 51 NH: 192 QRS: 3 QRSD: 88 T: 65 QT: 351 QTc: 413 Interpretive Statements SINUS RHYTHM LEFT VENTRICULAR HYPERTROPHY WITH ST-T CHANGE INFERIOR INFARCT, AGE INDETERMINATE ANTEROLATERAL INFARCT, AGE INDETERMINATE BASELINE ARTIFACT- I, II, III, AVR, AVL, AVF, V1-V6 ABNORMAL ECG Compared to ECG 07/13/2024 22:00:26 NO SIGNIFICANT CHANGE Electronically Signed On 07-28-2024 06:42:02 CDT by Monico Guerra D.O.
[2024-07-28 03:18] VITALS: PULSE 88; RESP 12; O2SAT 98
[2024-07-28 03:40] LABS: Basophils Absolute Auto 0.1 K/mm3 (0.0-0.1); Basophils Percent Auto 0.6 % (0.2-1.2); Eosinophils Absolute Auto 0.2 K/mm3 (0-0.3); Hematocrit 27.7 % (42.0-52.0); Hemoglobin 8.4 g/dL (14.0-18.0); Immature Granulocyte Absolute 0.05 K/mm3 (0.00-0.031); Immature Granulocyte Percent A 0.6 % (0-0.5); Lymphocytes Absolute Auto 1.27 K/mm3 (0.9-3.2); Lymphocytes Percent Auto 14.8 % (18.3-44.2); Mean Corpuscular HGB Conc 30.3 g/dl (32-36); Mean Corpuscular Hemoglobin 29.9 pg (26-34); Mean Corpuscular Volume 98.6 fl (80-100); Mean Platelet Volume 10.9 fl (7.4-10.4); Monocytes Absolute Auto 0.7 K/mm3 (0.1-0.6); Monocytes Percent Auto 8.1 % (2.6-8.5); Neutrophils Absolute Auto 6.3 K/mm3 (1.3-6.7); Neutrophils Percent Auto 73.9 % (45.5-73.1); Platelet Count Result 201 k/mm3 (150-375); Red Blood Count 2.81 M/mm3 (4.6-6.20); Red Cell Distribution Width 17.2 % (11.5-14.5); White Blood Count 8.6 K/mm3 (4.5-10.0)
[2024-07-28 04:03] LABS: Alanine Aminotransferase 18 U/L (6-50); Albumin Level 3.3 g/dL (3.5-5.1); Alkaline Phosphatase 81 U/L (38-126); Anion Gap 6 mmol/L (4-12); Aspartate Amino Transferase 19 U/L (17-59); Bilirubin,Total 0.7 mg/dL (0.2-1.3); Blood Urea Nitrogen 25 mg/dL (9-20); Carbon Dioxide 33 mmol/L (22-30); Chloride 92 mmol/L (98-107); Estimated CRCL calculation 95 ml/min; Estimated Glomerular Filt Rate > 60; Glucose 282 mg/dL (65-110); Potassium 4.5 mmol/L (3.4-5.0); Sodium 131 mmol/L (137-145)
[2024-07-28 04:08] VITALS: PULSE 82; RESP 21
[2024-07-28 04:15] VITALS: PULSE 85; RESP 18; O2SAT 96
[2024-07-28 04:22] LABS: Add Urine Microscopic? YES; Appearance Urine Clear (Clear); Bacteria Urine None Seen /hpf; Bilirubin Urine Negative (Negative); Blood Urine Negative (Negative); Color Urine Yellow (Yellow); Glucose Urine UA Negative (Negative); Ketones Urine Negative (Negative); Leukocyte Esterase Ur Trace LEU/UL (Negative); Nitrate Urine Negative (Negative); Non Pathogenic Casts 0-2; Protein Urine Negative (Negative); RBC Urine 0-2 /hpf (0-2); Specific Grav Ur 1.013 (1.001-1.035); Squamous Epithelial Cell Urine None Seen /hpf (Few); WBC Urine 0-5 /hpf (0-3); pH Urine 6.5 (5.0-9.0)
[2024-07-28 04:30] VITALS: O2SAT 98
[2024-07-28 04:52] LABS: Influenza A QL RT-PCR Negative (Negative); Influenza B QL RT-PCR Negative (Negative); RSV RNA, RT-PCR Negative (Negative); SARS-CoV-2 RNA PCR Negative (Negative)
--- NOTE | 2024-07-28 05:02 | ED.GENADULT ---
HPI - General Adult General Chief complaint: Shortness of Breath/Dyspnea Stated complaint: SOB X 4 DAYS Time Seen by Provider: 07/28/24 03:23 History of Present Illness HPI narrative: Patient is a 64-year-old gentleman who presents emergency department with chief complaint of shortness of breath. The patient has chronic COPD and chronic tracheal stenosis that causes stridor the patient was discharged from [facility] recently and reports that there been multiple people at a been sick at the facility where he is resident of and reports this evening the facility would not answer his call button to drain his urinal and the patient reports that they decided to send him to the emergency department the patient reports that his breathing is doing better currently denies fever Related Data Home Medications Medication Instructions Recorded Confirmed insulin syringe-needle U-100 11/14 #90 ea 03/05/20 07/08/24 mL 31 gauge x pen needle, diabetic 31 gauge x #30 ea 03/05/20 07/08/2401/26 tramadol 50 mg tablet 50 mg PO Q6H PRN Pain 11/15/23 07/08/24 sodium phosphates 19 gram-7 118 ml RECTAL ONCE PRN Constipation 03/04/24 07/08/24 gram/118 mL enema (Fleet Enema) Lactobacillus acidophilus 250 mg feeding tube DAILY 07/08/24 07/08/24 acetaminophen 325 mg tablet 650 mg feeding tube Q6H PRN pain 07/08/24 07/08/24 or fever amiodarone 100 mg tablet 100 mg feeding tube DAILY 07/08/24 07/08/24 amlodipine 5 mg tablet 5 mg feeding tube DAILY 07/08/24 07/08/24 atorvastatin 40 mg tablet 40 mg feeding tube DAILY 07/08/24 07/08/24 bisacodyl 10 mg rectal suppository 10 mg RECTAL DAILY PRN Constipation 07/08/24 07/08/24 clopidogrel 75 mg tablet 75 mg feeding tube QAM 07/08/24 07/08/24 ergocalciferol (vitamin D2) 50,000 50,000 unit WEEKLY 07/08/24 07/08/24 unit tablet guaifenesin 100 mg/5 mL oral liquid 200 mg PO Q4H PRN Cough 07/08/24 07/08/24 insulin aspart U-100 100 unit/mL 1 sliding scale dose subcut 07/08/24 07/08/24 (3 mL) subcutaneous pen (Novolog USEASDIRECTD FlexPen U-100 Insulin aspart) insulin glargine 100 unit/mL (3 25 unit subcut BID 07/08/24 07/08/24 mL) subcutaneous pen magnesium citrate 296 ml PO DAILY PRN Constipation 07/08/24 07/08/24 magnesium hydroxide 400 mg/5 mL 30 ml PO HS PRN Constipation 07/08/24 07/08/24 oral suspension (Milk of Magnesia) menthol 0.44 %-zinc oxide 20.6 % 1 applic topical DAILY 07/08/24 07/08/24 topical ointment (Calmoseptine) metoprolol tartrate 50 mg tablet 50 mg feeding tube Q12HR 07/08/24 07/08/24 mirtazapine 15 mg disintegrating 15 mg feeding tube HS 07/08/24 07/08/24 tablet omeprazole 40 mg capsule,delayed 40 mg feeding tube BID 07/08/24 07/08/24 release ondansetron 4 mg disintegrating 4 mg PO Q6H PRN Nausea And Vomiting 07/08/24 07/08/24 tablet polyethylene glycol 3350 17 gram 17 g feeding tube QAM PRN 07/08/24 07/08/24 oral powder packet (Miralax) Constipation silver sulfadiazine 1 % topical 1 applic topical DAILY 07/08/24 07/08/24 cream (Silvadene) Allergies Allergy/AdvReac Type Severity Reaction Status Date / Time amoxicillin Allergy Severe shortness Verified 07/08/24 05:02 of breath Penicillins Allergy Severe Anaphylactic Verified 07/08/24 05:02 Shock trimethoprim Allergy Intermediate Unknown Verified 07/08/24 05:02 cefuroxime Allergy Unknown Verified 07/08/24 05:02 cephalexin Allergy Unknown Verified 07/08/24 05:02 clindamycin Allergy Unknown Verified 07/08/24 05:02 gabapentin Allergy Unknown Verified 07/08/24 05:02 Review of Systems Review of Systems: A 10 system review of systems was completed on the patient and is negative except for what is stated in the HPI. Nursing and ancillary documentation was reviewed. [facility] Past Medical History Medical History ADHD (attention deficit hyperactivity disorder) Cellulitis of both feet Chronic kidney disease, stage 3 Baseline creatinine betwe
--- NOTE | 2024-07-28 05:24 | PC.NURSE ---
Report called to ALICIA Denis at 0520. Patient waiting for transport back to the facility. Patient transferred back with his chart and belongings.
== END 2024-07-28 07:03 ==
PROVIDERS: Emergency Provider Emergency Medicine; PCP Internal Medicine
DX: J44.9 Chronic obstructive pulmonary disease, unspecified (principal); J39.8 Other specified diseases of upper respiratory tract; Z20.822 Contact with and (suspected) exposure to COVID-19; F90.9 Attention-deficit hyperactivity disorder, unspecified type; I12.9 Hypertensive chronic kidney disease with stage 1 through stage 4 chronic kidney disease, or unspecified chronic kidney disease; E11.22 Type 2 diabetes mellitus with diabetic chronic kidney disease; N18.30 Chronic kidney disease, stage 3 unspecified; Z79.4 Long term (current) use of insulin; K21.9 Gastro-esophageal reflux disease without esophagitis; I25.2 Old myocardial infarction; M19.90 Unspecified osteoarthritis, unspecified site
CPT/HCPCS: 36415; 71045; 80053; 81001; 85025; 87637; 93005; 99284

== ENCOUNTER 2024-07-29 22:19 | Emergency (ER) | payer BC, SELFPAY ==
--- NOTE | ~2024-07-29 | XR_ITS ---
Portable chest x-ray Comparison: 07/28/2024 Clinical History: Dyspnea Findings: There is left basilar airspace consolidation and suspected small left pleural effusion. Ri ght lung clear. Cardiomediastinal silhouette is stable. Bones and soft tissues are unremarkable. Impression: Small left pleural effusion with left basilar atelectasis and/or pneumonia. Correlate clinically. Reviewed, dictated and finalized at location . Impression: Small left pleural effusion with left basilar atelectasis and/or pneumonia. Cor relate clinically.
[2024-07-29 22:21] VITALS: PULSE 86; RESP 23; TEMP 36.8; O2SAT 99
[2024-07-29 22:41] VITALS: PULSE 83; RESP 17
[2024-07-29] MEDS: IPRATROPIUM 0.5 MG/ALBUTEROL SULFATE 2.5 MG AMPUL.NEB 3 ML INHALATION (22:41)
[2024-07-29 22:43] LABS: Base Excess ABG 3.1 mEq/l (+/-2.0); Fractional Inspired Oxygen 44 %; HCO3 ABG 27.3 mEq/l (22.0-26.0); Oxygen Content ABG 12.2 %vol (16.0-22.0); Oxygen Saturation ABG 97.3 % (95.0-100.0); Oxyhemoglobin 96.2 % THb (90.0-100.0); PCO2 ABG 40.2 mmHg (35.0-45.0); PO2 ABG 90.9 mmHg (80.0-100.0); PO2 FiO2 Ratio Arterial Blood 2.07 %; Total Hemoglobin 8.9 g/dL (12.0-18.0)
[2024-07-29 22:51] LABS: Device NASAL CANNULA; Modified Allen's Test Pass; Site Drawn LEFT RADIAL
[2024-07-29 22:53] VITALS: PULSE 78; RESP 18
[2024-07-29 23:05] LABS: Basophils Percent Auto 0.3 % (0.2-1.2); Eosinophils Absolute Auto 0.1 K/mm3 (0-0.3); Eosinophils Percent Auto 0.9 % (0-4.4); Hematocrit 25.8 % (42.0-52.0); Hemoglobin 7.9 g/dL (14.0-18.0); Immature Granulocyte Absolute 0.04 K/mm3 (0.00-0.031); Immature Granulocyte Percent A 0.4 % (0-0.5); Lymphocytes Absolute Auto 0.83 K/mm3 (0.9-3.2); Lymphocytes Percent Auto 7.9 % (18.3-44.2); Mean Corpuscular HGB Conc 30.6 g/dl (32-36); Mean Corpuscular Hemoglobin 30.3 pg (26-34); Mean Corpuscular Volume 98.9 fl (80-100); Mean Platelet Volume 10.3 fl (7.4-10.4); Monocytes Absolute Auto 0.6 K/mm3 (0.1-0.6); Monocytes Percent Auto 5.6 % (2.6-8.5); Neutrophils Absolute Auto 8.9 K/mm3 (1.3-6.7); Neutrophils Percent Auto 84.9 % (45.5-73.1); Platelet Count Result 190 k/mm3 (150-375); Red Blood Count 2.61 M/mm3 (4.6-6.20); Red Cell Distribution Width 17.5 % (11.5-14.5); White Blood Count 10.5 K/mm3 (4.5-10.0)
[2024-07-29 23:22] LABS: Alanine Aminotransferase 16 U/L (6-50); Albumin Level 3.2 g/dL (3.5-5.1); Alkaline Phosphatase 71 U/L (38-126); Anion Gap 8 mmol/L (4-12); Aspartate Amino Transferase 19 U/L (17-59); Bilirubin,Total 0.4 mg/dL (0.2-1.3); Blood Urea Nitrogen 21 mg/dL (9-20); Calcium 8.7 mg/dL (8.4-10.2); Carbon Dioxide 33 mmol/L (22-30); Chloride 93 mmol/L (98-107); Estimated CRCL calculation 75 ml/min; Estimated Glomerular Filt Rate > 60; Glucose 338 mg/dL (65-110); Magnesium 1.5 mg/dL (1.6-2.3); Potassium 4.3 mmol/L (3.4-5.0); Sodium 134 mmol/L (137-145)
[2024-07-29 23:23] VITALS: O2SAT 98
[2024-07-29 23:23] LABS: Lactic Acid Reflex 1.6 mmol/L (0.7-2.0)
[2024-07-29 23:34] LABS: NT Pro B Type Natriuretic Pept 649 pg/mL (19.9-100); Troponin I 0.023 ng/mL (0.000-0.034)
[2024-07-29 23:54] LABS: Procalcitonin 0.7 ng/mL
[2024-07-29 23:58] LABS: Influenza A QL RT-PCR Negative (Negative); Influenza B QL RT-PCR Negative (Negative); RSV RNA, RT-PCR Negative (Negative); SARS-CoV-2 RNA PCR Negative (Negative)
--- NOTE | 2024-07-30 00:18 | ED.GENADULT ---
HPI - General Adult General Chief complaint: Shortness of Breath/Dyspnea Stated complaint: RESP DISTRESS Time Seen by Provider: 07/29/24 22:19 History of Present Illness HPI narrative: Patient is 64 old gentleman who presents emergency department with chief complaint of shortness of breath. The patient has history of tracheal stenosis and was sent from the nursing facility where he is a resident of. The patient was placed on CPAP by EMS for respiratory distress Related Data Home Medications Medication Instructions Recorded Confirmed insulin syringe-needle U-100 / #90 ea 03/05/20 07/08/24 mL 31 gauge x 15/64 pen needle, diabetic 31 gauge x #30 ea 03/05/20 07/08/2401/26 tramadol 50 mg tablet 50 mg PO Q6H PRN Pain 11/15/23 07/08/24 sodium phosphates 19 gram-7 118 ml RECTAL ONCE PRN Constipation 03/04/24 07/08/24 gram/118 mL enema (Fleet Enema) Lactobacillus acidophilus 250 mg feeding tube DAILY 07/08/24 07/08/24 acetaminophen 325 mg tablet 650 mg feeding tube Q6H PRN pain 07/08/24 07/08/24 or fever amiodarone 100 mg tablet 100 mg feeding tube DAILY 07/08/24 07/08/24 amlodipine 5 mg tablet 5 mg feeding tube DAILY 07/08/24 07/08/24 atorvastatin 40 mg tablet 40 mg feeding tube DAILY 07/08/24 07/08/24 bisacodyl 10 mg rectal suppository 10 mg RECTAL DAILY PRN Constipation 07/08/24 07/08/24 clopidogrel 75 mg tablet 75 mg feeding tube QAM 07/08/24 07/08/24 ergocalciferol (vitamin D2) 50,000 50,000 unit WEEKLY 07/08/24 07/08/24 unit tablet guaifenesin 100 mg/5 mL oral liquid 200 mg PO Q4H PRN Cough 07/08/24 07/08/24 insulin aspart U-100 100 unit/mL 1 sliding scale dose subcut 07/08/24 07/08/24 (3 mL) subcutaneous pen (Novolog USEASDIRECTD FlexPen U-100 Insulin aspart) insulin glargine 100 unit/mL (3 25 unit subcut BID 07/08/24 07/08/24 mL) subcutaneous pen magnesium citrate 296 ml PO DAILY PRN Constipation 07/08/24 07/08/24 magnesium hydroxide 400 mg/5 mL 30 ml PO HS PRN Constipation 07/08/24 07/08/24 oral suspension (Milk of Magnesia) menthol 0.44 %-zinc oxide 20.6 % 1 applic topical DAILY 07/08/24 07/08/24 topical ointment (Calmoseptine) metoprolol tartrate 50 mg tablet 50 mg feeding tube Q12HR 07/08/24 07/08/24 mirtazapine 15 mg disintegrating 15 mg feeding tube HS 07/08/24 07/08/24 tablet omeprazole 40 mg capsule,delayed 40 mg feeding tube BID 07/08/24 07/08/24 release ondansetron 4 mg disintegrating 4 mg PO Q6H PRN Nausea And Vomiting 07/08/24 07/08/24 tablet polyethylene glycol 3350 17 gram 17 g feeding tube QAM PRN 07/08/24 07/08/24 oral powder packet (Miralax) Constipation silver sulfadiazine 1 % topical 1 applic topical DAILY 07/08/24 07/08/24 cream (Silvadene) Allergies Allergy/AdvReac Type Severity Reaction Status Date / Time amoxicillin Allergy Severe shortness Verified 07/08/24 05:02 of breath Penicillins Allergy Severe Anaphylactic Verified 07/08/24 05:02 Shock trimethoprim Allergy Intermediate Unknown Verified 07/08/24 05:02 cefuroxime Allergy Unknown Verified 07/08/24 05:02 cephalexin Allergy Unknown Verified 07/08/24 05:02 clindamycin Allergy Unknown Verified 07/08/24 05:02 gabapentin Allergy Unknown Verified 07/08/24 05:02 Review of Systems Review of Systems: A 10 system review of systems was completed on the patient and is negative except for what is stated in the HPI. Nursing and ancillary documentation was reviewed. [facility] Past Medical History Medical History ADHD (attention deficit hyperactivity disorder) Cellulitis of both feet Chronic kidney disease, stage 3 Baseline creatinine between 1.5 and 1.60. Chronic pain syndrome On long-term opiates. Coronary artery disease With history of stents. Degenerative disc disease Diabetic foot infection Gangrene of toe of right foot GERD (gastroesophageal reflux disease) History of DVT of lower extremity Hospital discharge follow-up Hyperl
[2024-07-30 00:20] VITALS: BP 111/63; PULSE 80; RESP 20; TEMP 36.6; O2SAT 99
[2024-07-30 00:21] VITALS: O2SAT 96
[2024-07-30 01:23] VITALS: BP 131/98; PULSE 86; PULSE 92; RESP 19; TEMP 36.6; O2SAT 99
[2024-07-30] MEDS: IPRATROPIUM 0.5 MG/ALBUTEROL SULFATE 2.5 MG AMPUL.NEB 3 ML INHALATION (01:23)
[2024-07-30 01:29] VITALS: PULSE 85; RESP 19
[2024-07-30 02:00] VITALS: O2SAT 98
== END 2024-07-30 02:30 ==
PROVIDERS: Emergency Provider Emergency Medicine; PCP Internal Medicine
DX: J44.9 Chronic obstructive pulmonary disease, unspecified (principal); J39.8 Other specified diseases of upper respiratory tract; Z20.822 Contact with and (suspected) exposure to COVID-19; E11.22 Type 2 diabetes mellitus with diabetic chronic kidney disease; I12.9 Hypertensive chronic kidney disease with stage 1 through stage 4 chronic kidney disease, or unspecified chronic kidney disease; N18.30 Chronic kidney disease, stage 3 unspecified; E11.51 Type 2 diabetes mellitus with diabetic peripheral angiopathy without gangrene; I73.9 Peripheral vascular disease, unspecified; I25.10 Atherosclerotic heart disease of native coronary artery without angina pectoris; I25.2 Old myocardial infarction; E78.5 Hyperlipidemia, unspecified; G89.4 Chronic pain syndrome; K21.9 Gastro-esophageal reflux disease without esophagitis; M19.90 Unspecified osteoarthritis, unspecified site; F90.9 Attention-deficit hyperactivity disorder, unspecified type; F17.210 Nicotine dependence, cigarettes, uncomplicated; Z95.5 Presence of coronary angioplasty implant and graft; Z86.718 Personal history of other venous thrombosis and embolism; Z89.511 Acquired absence of right leg below knee; Z79.4 Long term (current) use of insulin; Z79.899 Other long term (current) drug therapy
CPT/HCPCS: 36415; 36600; 71045; 80053; 82805; 82810; 83605; 83735; 83880; 84145; 84484; 85025; 87637; 94640; 99284

== ENCOUNTER 2024-07-30 19:36 | Emergency (ER) | payer BC, SELFPAY ==
[2024-07-30] VITALS (16 sets, daily range): BP systolic 112–212; BP diastolic 40–83; PULSE 102–124; RESP 16–24; TEMP 36.8; O2SAT 93–100
--- NOTE | ~2024-07-30 | XR_ITS ---
EXAMINATION: XR chest 1V portable Exam Date/Time: 07/30/2024 20:10 CDT HISTORY: PEGGY BEST OBTAINABLE PATIENT TRYING TO ROLL TO LEFT Comparison: 07/30/2024 at 12:13 AM. RESULT: Lines, tubes, and devices: Peripheral catheter projecting over the right axilla. Lungs and pleura: Lobar left mid/lower lung consolidation with moderate to severe left costophrenic angle blunting. Slightly decreased aeration of the left upper lung. Mild diffuse reticular opacities. Cardiomediastinal silhouette: Stable. Other: No acute osseous or upper abdominal finding. IMPRESSION: Worsening atelectasis/consolidation in the left mid/lower lung. Moderate left pleural effusion. Mild interstitial edema.. Reviewed, dictated and finalized at location K. IMPRESSION: Worsening atelectasis/consolidation in the left mid/lower lung. Moderate left p leural effusion. Mild interstitial edema..
--- NOTE | ~2024-07-30 | XR_ITS ---
EXAMINATION: XR chest ET placement Exam Date/Time: 07/30/2024 21:55 CDT HISTORY: ETT PLACEMENT Comparison: Same date at 8:11 PM; x-ray abdomen 07/13/2024. FINDINGS/IMPRESSION: New endotracheal tube, terminating 3.1 cm above the vanessa. NG tube tip and side port project over the gastric fundus. Unchanged left mid/lower lung atelectasis/consolidation, moderate left effusion, and interstitial ricardo ma Reviewed, dictated and finalized at location K.
--- NOTE | 2024-07-30 19:46 | ECG_ITS ---
Test Date: 2024-07-30 19:45:47 Measurements Intervals [place] Rate: 108 P: 74 CA: 179 QRS: 26 QRSD: 100 T: -62 QT: 324 QTc: 435 Interpretive Statements SINUS TACHYCARDIA INFERIOR MYOCARDIAL INFARCTION , OF INDETERMINATE AGE EXTENSIVE ANTERIOR INFARCT, AGE INDETERMINATE BORDERLINE ST-T WAVE ABNORMALITY- HIGH LATERAL LEADS BASELINE ARTIFACT- I, II, III, AVR, AVL, AVF, V1-V6 ABNORMAL ECG Compared to ECG 07/28/2024 03:08:58 HEART RATE HAS INCREASED Electronically Signed On 07-30-2024 20:32:08 CDT by Monico Guerra D.O.
--- NOTE | 2024-07-30 19:58 | ED.SOB ---
HPI - SOB/Dyspnea General Chief Complaint: Shortness of Breath/Dyspnea <Bibi Wiley MD - Last Filed: 07/31/24 06:35> Stated Complaint: SOB, HYPOXIA <Bibi Wiley MD - Last Filed: 07/31/24 06:35> Time Seen by Provider: 07/30/24 19:38 <Bibi iWley MD - Last Filed: 07/31/24 06:35> History of Present Illness HPI Narrative: Patient with history of COPD, DM, tracheal stenosis who has now presented to hospital multiple times in last 2 weeks, was found wheezing by residential staff and hypoxic to the 60s, EMS was called and they did give him oxygen, breathing treatments, steroids, and magnesium prior to arrival here <Bibi Wiley MD - Last Filed: 07/31/24 06:35> Related Data Home Medications: Home Medications Medication Instructions Recorded Confirmed insulin syringe-needle U-100 11/14 #90 ea 03/05/20 07/08/24 mL 31 gauge x 15/64 pen needle, diabetic 31 gauge x #30 ea 03/05/20 07/08/2401/26 tramadol 50 mg tablet 50 mg PO Q6H PRN Pain 11/15/23 07/08/24 sodium phosphates 19 gram-7 118 ml RECTAL ONCE PRN Constipation 03/04/24 07/08/24 gram/118 mL enema (Fleet Enema) Lactobacillus acidophilus 250 mg feeding tube DAILY 07/08/24 07/08/24 acetaminophen 325 mg tablet 650 mg feeding tube Q6H PRN pain 07/08/24 07/08/24 or fever amiodarone 100 mg tablet 100 mg feeding tube DAILY 07/08/24 07/08/24 amlodipine 5 mg tablet 5 mg feeding tube DAILY 07/08/24 07/08/24 atorvastatin 40 mg tablet 40 mg feeding tube DAILY 07/08/24 07/08/24 bisacodyl 10 mg rectal suppository 10 mg RECTAL DAILY PRN Constipation 07/08/24 07/08/24 clopidogrel 75 mg tablet 75 mg feeding tube QAM 07/08/24 07/08/24 ergocalciferol (vitamin D2) 50,000 50,000 unit WEEKLY 07/08/24 07/08/24 unit tablet guaifenesin 100 mg/5 mL oral liquid 200 mg PO Q4H PRN Cough 07/08/24 07/08/24 insulin aspart U-100 100 unit/mL 1 sliding scale dose subcut 07/08/24 07/08/24 (3 mL) subcutaneous pen (Novolog USEASDIRECTD FlexPen U-100 Insulin aspart) insulin glargine 100 unit/mL (3 25 unit subcut BID 07/08/24 07/08/24 mL) subcutaneous pen magnesium citrate 296 ml PO DAILY PRN Constipation 07/08/24 07/08/24 magnesium hydroxide 400 mg/5 mL 30 ml PO HS PRN Constipation 07/08/24 07/08/24 oral suspension (Milk of Magnesia) menthol 0.44 %-zinc oxide 20.6 % 1 applic topical DAILY 07/08/24 07/08/24 topical ointment (Calmoseptine) metoprolol tartrate 50 mg tablet 50 mg feeding tube Q12HR 07/08/24 07/08/24 mirtazapine 15 mg disintegrating 15 mg feeding tube HS 07/08/24 07/08/24 tablet omeprazole 40 mg capsule,delayed 40 mg feeding tube BID 07/08/24 07/08/24 release ondansetron 4 mg disintegrating 4 mg PO Q6H PRN Nausea And Vomiting 07/08/24 07/08/24 tablet polyethylene glycol 3350 17 gram 17 g feeding tube QAM PRN 07/08/24 07/08/24 oral powder packet (Miralax) Constipation silver sulfadiazine 1 % topical 1 applic topical DAILY 07/08/24 07/08/24 cream (Silvadene) <Bibi Wiley MD - Last Filed: 07/31/24 06:35> Allergies/Adverse Reactions: Allergies Allergy/AdvReac Type Severity Reaction Status Date / Time amoxicillin Allergy Severe shortness Verified 07/31/24 09:28 of breath Penicillins Allergy Severe Anaphylactic Verified 07/31/24 09:28 Shock trimethoprim Allergy Intermediate Unknown Verified 07/31/24 09:28 cefuroxime Allergy Unknown Verified 07/31/24 09:28 cephalexin Allergy Unknown Verified 07/31/24 09:28 clindamycin Allergy Unknown Verified 07/31/24 09:28 gabapentin Allergy Unknown Verified 07/31/24 09:28 <Bibi Wiley MD - Last Filed: 07/31/24 06:35> Review of Systems Review of Systems: All systems reviewed & are unremarkable except as noted in HPI and below <Bibi Wiley MD - Last Filed: 07/31/24 06:35> [facility] Past Medical History Medical History: Medical History ADHD (attention deficit hyperactivity disorder) Cellulitis of both feet Chronic ki
--- NOTE | 2024-07-30 20:20 | PC.NURSE ---
Pt placed on 15L NRB by respiratory per vorb Dr. Wiley
[2024-07-30] MEDS: ALBUTEROL SULFATE NEB 2.5 MG/3 ML INH 15 MG INHALATION (20:27)
[2024-07-30] MEDS: IPRATROPIUM BR 0.02% INH SOLN 0.5 MG/2.5 ML VIAL 1 MG INHALATION (20:28)
[2024-07-30 20:30] LABS: Alveolar/Arterial O2 Gradient 437.2 mmHg; Base Excess ABG 2.8 mEq/l (+/-2.0); Fractional Inspired Oxygen 100 %; HCO3 ABG 31.5 mEq/l (22.0-26.0); Oxygen Content ABG 13.5 %vol (16.0-22.0); Oxygen Saturation ABG 99.1 % (95.0-100.0); Oxyhemoglobin 98.6 % THb (90.0-100.0); PO2 ABG 200.2 mmHg (80.0-100.0); Total Hemoglobin 9.4 g/dL (12.0-18.0)
[2024-07-30 20:32] LABS: Device NON-REBREATHER MASK; Modified Allen's Test Pass; PCO2 ABG 75.6 mmHg (35.0-45.0); Site Drawn LEFT RADIAL; pH ABG 7.237 (7.350-7.450)
--- NOTE | 2024-07-30 20:49 | PC.NURSE ---
This RN and christian Hathaway attempting to get labs from pt. Pt grabbed call light and attempted to swing it at Rivas. Pt also stated Fuck you, asshole to Rivas. Every time we attempted to get blood, patient would start shaking his arm until needle came out. Pt placed on bipap and refuses to keep the mask on. ED Security at bedside. ED Charge notified.
[2024-07-30 20:53] LABS: Basophils Percent Auto 0.4 % (0.2-1.2); Eosinophils Absolute Auto 0.1 K/mm3 (0-0.3); Eosinophils Percent Auto 0.7 % (0-4.4); Hematocrit 28.4 % (42.0-52.0); Hemoglobin 8.5 g/dL (14.0-18.0); Immature Granulocyte Absolute 0.07 K/mm3 (0.00-0.031); Immature Granulocyte Percent A 0.7 % (0-0.5); Lymphocytes Absolute Auto 1.23 K/mm3 (0.9-3.2); Lymphocytes Percent Auto 12.2 % (18.3-44.2); Mean Corpuscular HGB Conc 29.9 g/dl (32-36); Mean Corpuscular Hemoglobin 30.1 pg (26-34); Mean Corpuscular Volume 100.7 fl (80-100); Mean Platelet Volume 10.7 fl (7.4-10.4); Monocytes Absolute Auto 0.7 K/mm3 (0.1-0.6); Monocytes Percent Auto 6.9 % (2.6-8.5); Neutrophils Percent Auto 79.1 % (45.5-73.1); Platelet Count Result 209 k/mm3 (150-375); Red Blood Count 2.82 M/mm3 (4.6-6.20); Red Cell Distribution Width 17.2 % (11.5-14.5); White Blood Count 10.1 K/mm3 (4.5-10.0)
[2024-07-30 21:04] LABS: Alanine Aminotransferase 16 U/L (6-50); Albumin Level 3.7 g/dL (3.5-5.1); Alkaline Phosphatase 88 U/L (38-126); Anion Gap 8 mmol/L (4-12); Aspartate Amino Transferase 20 U/L (17-59); Bilirubin,Total 0.7 mg/dL (0.2-1.3); Blood Urea Nitrogen 22 mg/dL (9-20); Calcium 8.9 mg/dL (8.4-10.2); Carbon Dioxide 34 mmol/L (22-30); Chloride 89 mmol/L (98-107); Estimated Glomerular Filt Rate > 60; Glucose 371 mg/dL (65-110); Magnesium 2.3 mg/dL (1.6-2.3); Potassium 4.2 mmol/L (3.4-5.0); Sodium 131 mmol/L (137-145)
[2024-07-30 21:06] LABS: Hypochromasia 1+; Platelet Estimate Adequate (Adequate)
[2024-07-30 21:07] LABS: Ovalocytes 1+; Schistocytes None Seen; Stomatocytes 1+
[2024-07-30] MEDS: LORazepam INJ (*CRX) 2 MG/ML VIAL 0.5 MG IV PUSH (21:14)
[2024-07-30 21:16] LABS: NT Pro B Type Natriuretic Pept 999 pg/mL (19.9-100); Troponin I < 0.012 ng/mL (0.000-0.034)
--- NOTE | 2024-07-30 21:19 | PC.NURSE ---
Respiratory at bedside. Pt refusing to keep bipap mask on. Respiratory notified EDP Dr. Wiley. Dr Wiley, ED respiratory, 3 RNs, security, & 1 tech at bedside preparing for intubation. Pt was 58% on bipap at this time Pt given 0.5mg ativan per [facility] EDP @ 2058 Pt 100% on bipap at this time. 20g US IV placed in left AC by Dr. Wiley. Blood cultures obtained. All Intubation & Crich supplies at bedside.
--- NOTE | 2024-07-30 21:35 | PC.NURSE ---
2135 : This RN & EDP at bedside. Pt attempting to take off bipap mask Respiratory & Anesthesiology called for intubation
--- NOTE | 2024-07-30 21:40 | PC.NURSE ---
2140 : EDP, 3 RN, ED Respiratory & Anesthesiology at bedside 2147: 10mL Etomidate 2147: 5mL Rocuronium 9 : 7.5 ET Tube placed (24 @ teeth) color change, bilateral breath sounds, chest x-ray showed correct placement 18fr OG- 60 @ teeth (350mL output) 2200 : 16fr temp hemphill placed 2237 : soft restraints placed
[2024-07-30] MEDS: RAPID SEQUENCE INTUBATION KIT 1 EACH (21:47)
--- NOTE | 2024-07-30 21:57 | WPDPROCEDUR ---
Procedures Intubation Intubation Date: 07/30/24 Intubation Time: 21:50 A pre-procedural Time-Out was completed immediately before starting the procedure and confirmed: Patient Identification, Site, Procedure, Patient Position and the Availability of Requisite Equipment: Yes Sedative: etomidate (20 mg) Mg given: 20 Paralytic: rocuronium Mg given: 50 Laryngoscope: fiber optic video scope (3 Glidescope) ET tube size: cuffed Tube secured depth (cm): 24 Tube secured location: teeth Tube placement confirmation: visualized tube passing through cords, equal breath sounds bilaterally, no breath sounds over epigastrium and confirmation by capnometry Patient tolerated procedure: well Intubation complications: none Additional comments: Called to ED 13 for respiratory distress, assistance requested for possible difficult intubation as pt has known tracheal stenosis s/o trach. Pre O2 with 100% O2, medications per ED Rn, easy mask ventilation, DVOI x1 with glidescope 3 x 1 attempt. + ETCO2, BBS equal, ETT secured at 24cm/teeth, pCXR ordered for tube placement confirmation. VSS throughout. RT present for ventilatory support.
[2024-07-30] MEDS: fentaNYL CITRATE INJ (*CRX) 100 MCG/2 ML VIAL IV PUSH (22:21)
[2024-07-30] MEDS: FENTANYL 2,500MCG/NS250ML(*CRX 2,500 MCG/250 ML BAG IV CONT (22:23)
[2024-07-30] MEDS: FUROSEMIDE INJ 40 MG/4 ML VIAL IV PUSH (22:30)
[2024-07-30] MEDS: LORazepam INJ (*CRX) 2 MG/ML VIAL (22:31)
[2024-07-30] MEDS: levoFLOXacin 500 MG/D5W 100 ML 500 MG/100 ML BAG 100 MG IVPB (22:34)
[2024-07-30] MEDS: MIDAZOLAM 100MG/NS 100ML(*CRX) 100 MG/100 ML BAG IV CONT (23:25)
[2024-07-31] VITALS (25 sets, daily range): BP systolic 113–163; BP diastolic 41–97; PULSE 65–115; RESP 14–20; TEMP 37.1–37.4; O2SAT 95–100
[2024-07-31] MEDS: MIDAZOLAM HCL (*CRX) 10 MG/2 ML VIAL 5 MG IV PUSH (02:25)
--- NOTE | 2024-07-31 02:28 | PC.NURSE ---
respiratory attempting to get post intubation ABG. Pt moving around and becoming restless. per [facility] EDP, pt to receive versed bolus
[2024-07-31 03:12] LABS: Alveolar/Arterial O2 Gradient 223.3 mmHg; Base Excess ABG 6.1 mEq/l (+/-2.0); Carboxyhemoglobin 0.4 % THb (0-2.0); Fractional Inspired Oxygen 50 %; HCO3 ABG 27.9 mEq/l (22.0-26.0); Methemoglobin ABG 0.3 %THb (0-1.5); Oxygen Saturation ABG 98.4 % (95.0-100.0); Oxyhemoglobin 97.8 % THb (90.0-100.0); PCO2 ABG 29.6 mmHg (35.0-45.0); PO2 ABG 99.9 mmHg (80.0-100.0); Reduced Hemoglobin 1.5 %THb (0-5.0); Total Hemoglobin 8.6 g/dL (12.0-18.0)
[2024-07-31 03:14] LABS: Device VENTILATOR; Modified Allen's Test Pass; Site Drawn RIGHT BRACHIAL; pH ABG 7.592 (7.350-7.450)
[2024-07-31 03:15] LABS: Arterial Blood Gas PEEP 5 cmH2O; Arterial Blood Gas Tidal Volume 450 ml; Arterial Blood Gas Vent Mode CMV; Arterial Blood Gas Ventilator rate 18 /MIN
--- NOTE | 2024-07-31 06:37 | PC.NURSE ---
Attempting to change pt depends when pt started to wake up. versed increased to 4mL
[2024-07-31] MEDS: fentaNYL CITRATE INJ (*CRX) 100 MCG/2 ML VIAL 50 MCG IV PUSH (06:52)
--- NOTE | 2024-07-31 08:36 | PC.NURSE ---
PT NOTED TO HAVE R ARM TWITCHING, DR BRO TO BEDSIDE TO JOSIANE.
--- NOTE | 2024-07-31 08:45 | PC.NURSE ---
SHAKING STOPPED AFTER WARM BLANKETS PLACED
--- NOTE | 2024-07-31 10:17 | PC.NURSE ---
PT HAS NOW RECEIVED BED AT [facility]; WILL BE ER HOLD UNTIL TRANSPORT IS AVAILABLE.
--- NOTE | 2024-07-31 10:25 | PC.NURSE ---
1022 bed [id number] received at [facility]
== END 2024-07-31 11:46 | disposition short-term general hospital (02) ==
LOC: ANHED 07-31 06:23 → ANHICU 07-31 08:54 → ANHED 07-31 11:24
PROVIDERS: Emergency Provider Emergency Medicine; PCP Internal Medicine
DX: J96.01 Acute respiratory failure with hypoxia (principal); J96.02 Acute respiratory failure with hypercapnia; J44.1 Chronic obstructive pulmonary disease with (acute) exacerbation; J18.9 Pneumonia, unspecified organism; J39.8 Other specified diseases of upper respiratory tract; I50.9 Heart failure, unspecified; I13.0 Hypertensive heart and chronic kidney disease with heart failure and stage 1 through stage 4 chronic kidney disease, or unspecified chronic kidney disease; E11.22 Type 2 diabetes mellitus with diabetic chronic kidney disease; N18.30 Chronic kidney disease, stage 3 unspecified; I25.10 Atherosclerotic heart disease of native coronary artery without angina pectoris; G89.4 Chronic pain syndrome; F90.9 Attention-deficit hyperactivity disorder, unspecified type; E78.5 Hyperlipidemia, unspecified; I25.2 Old myocardial infarction; E11.51 Type 2 diabetes mellitus with diabetic peripheral angiopathy without gangrene; I73.9 Peripheral vascular disease, unspecified; M19.90 Unspecified osteoarthritis, unspecified site; Z89.511 Acquired absence of right leg below knee; Z86.718 Personal history of other venous thrombosis and embolism; Z79.4 Long term (current) use of insulin; Z79.899 Other long term (current) drug therapy; R00.0 Tachycardia, unspecified; R94.31 Abnormal electrocardiogram [ECG] [EKG]
CPT/HCPCS: 31500; 36415; 36600; 71045; 80053; 82375; 82805; 82810; 83050; 83735; 83880; 84484; 85025; 87040; 93005; 94002; 94640; 99285; J1940; J1956; J2060; J2250; J3010

== ENCOUNTER 2024-08-18 06:40 | Inpatient (IN) | payer BC, SELFPAY ==
[2024-08-18] VITALS (26 sets, daily range): BP systolic 120–158; BP diastolic 68–96; PULSE 72–118; RESP 15–31; TEMP 36.4–36.8; O2SAT 92–100
--- NOTE | ~2024-08-18 | CT_ITS ---
EXAMINATION: CT chest abdomen pelvis wo con DATE: 08/18/2024 08:47 INDICATION: Shortness of breath TECHNIQUE: Computed tomography (CT) of the chest, abdomen, and pelvis was performed without intraveno us contrast. Automated exposure control and iterative reconstruction technique were employed. The dos e-length product was 1556.94 mGy-cm. COMPARISON: None FINDINGS: CHEST CT: Chronic elevation of the left hemidiaphragm. Consolidation in the lingula and left lower lobe with le sser degree of volume loss in left lower lobe and would be expected for isolated atelectasis and favo r combination of atelectasis and pneumonia. Subtle patchy groundglass opacities in the right middle l obe and anterior right lower lobe also consistent with pneumonia. No pulmonary edema or pleural effus ion. Mild cardio likely. Atherosclerotic coronary artery calcific lesion. No pericardial effusion. Th oracic aorta is normal in caliber. No pathologically enlarged thoracic lymphadenopathy. Nonspecific s ubcutaneous edema in the right pectoral region. Bilateral gynecomastia. ABDOMEN/PELVIS CT: Gallbladder is dilated but without evident, bladder wall thickening or pericholecystic inflammatory s tranding to suggest acute cholecystitis. Liver and bilateral adrenal glands are normal. There are few small splenic desiccation consistent with old granulomatous disease. Multiple dystrophic calcificati on along the pancreas suggesting sequela of chronic pancreatitis. Small amount of atherosclerotic marium iccation at the bilateral renal brenda. No hydronephrosis or suspected urolithiasis. There is moderate right renal atrophy. Percutaneous gastrostomy tube in the distal body of the stomach. Bowels includin g the appendix are normal with no obstruction. Ayoub catheter within the decompressed bladder. Modera te-sized bilateral fat-containing inguinal hernias. No free intraperitoneal gas or fluid. No patholog ically enlarged abdominal or pelvic lymphadenopathy. There is packing material at a deep sacral decub itus ulcer extending to near the surface of the bone at the sacrococcygeal junction. No definitive co rtical erosion to suggest osteomyelitis. Prominent heterotopic ossification about the posterior aspec t of the left hip joint. IMPRESSION: 1. Consolidation in the left lower lobe and lingula likely representing combination of atelectasis an d pneumonia with additional more subtle pneumonia in the right middle and lower lobes. 2. Cardiomegaly. 3. Scattered tiny parenchymal calcifications at the pancreas likely sequela of chronic pancreatitis. 4. Deep sacral decubitus ulcer. 5. Nonspecific stranding in the subcutaneous fat at the right pectoral region. Correlate clinically f or either recent contusion or cellulitis. Reviewed, dictated and finalized at location A. IMPRESSION: 1. Consolidation in the left lower lobe and lingula likely representing combina tion of atelectasis and pneumonia with additional more subtle pneumonia in the right middle and lower lobes. 2. Cardiomegaly. 3. Scattered tiny parenchymal calcifications at the pancreas likely sequela of chronic pancreatitis. 4. Deep sacral decubitus ulcer. 5. Nonspecific stranding in the subcutaneous fat at the right pectoral region. Correlate clinically for either recent contusion or cellulitis.
--- NOTE | ~2024-08-18 | XR_ITS ---
EXAMINATION: XR chest 1V portable DATE: 08/18/2024 08:08 INDICATION: Shortness of breath TECHNIQUE: frontal view of the chest was obtained. COMPARISON: Chest radiograph dated 07/30/[address] dated 07/08/2024 FINDINGS: Opacification of the inferior half the left hemithorax, likely combination of elevation of left hemid iaphragm and left basilar lung disease which could represent atelectasis, pneumonia, small left pleur al effusion or some combination thereof. This obscures the left heart border with cardiomegaly eviden t on prior CT. Right lung remains clear. No pneumothorax or right-sided pleural effusion. IMPRESSION: 1. Persistent opacification of the left lower lung zone due to combination of elevation of the left h emidiaphragm and inferior lung disease which could be due to atelectasis, pneumonia, small left pleur al effusion or some combination thereof. 2. Cardiomegaly partial obscured by the adjacent opacities. Reviewed, dictated and finalized at location A. IMPRESSION: 1. Persistent opacification of the left lower lung zone due to combination of e levation of the left hemidiaphragm and inferior lung disease which could be due to atelectasis, pneumonia, small left pleural effusion or some combination the reof. 2. Cardiomegaly partial obscured by the adjacent opacities.
--- NOTE | ~2024-08-18 | XR_ITS ---
EXAMINATION: XR chest 1V portable DATE: 08/18/2024 09:54 INDICATION: PICC line placement TECHNIQUE: frontal view of the chest was obtained. COMPARISON: Chest CT dated 08/18/2024 FINDINGS: Right upper extremity peripherally inserted central venous catheter (PICC) tip at the mid superior v thania cava. Opacification of the left lower lung zone which on CT correspond to combination of elevatio n the left hemidiaphragm and associated likely combination of atelectasis and pneumonia. Calcified ri ght hilar lymph nodes consistent with old granulomatous disease. Right lung is clear. No pneumothorax or right-sided pleural effusion. Small left pleural effusion could not be excluded on the radiograph s but was not evident on the immediately prior CT. Also evident on prior CT is mild cardiomegaly whic h is obscured by the lung disease on the current radiographs. IMPRESSION: 1. Right PICC line tip at the midsuperior vena cava. 2. Elevation of the left hemidiaphragm with likely combination of atelectasis and pneumonia in the le ft lower lung zone. Reviewed, dictated and finalized at location A. IMPRESSION: 1. Right PICC line tip at the midsuperior vena cava. 2. Elevation of the left hemidiaphragm with likely combination of atelectasis a nd pneumonia in the left lower lung zone.
--- NOTE | ~2024-08-18 | XR_ITS ---
EXAMINATION: XR chest 1V portable DATE: 08/21/2024 12:36 INDICATION: Atelectasis. TECHNIQUE: A single frontal view of the chest was obtained. COMPARISON: Chest single view 08/18/2024, 03/08/2024, chest CT 08/18/2024 FINDINGS: There is elevation of left hemidiaphragm. There are airspace opacities in the right lower l estelle zone and left mid and lower lung zones. No pneumothorax. The heart size is normal. A right upper extremity peripherally inserted central venous catheter (PICC) is seen with tip in the superior vena cava. There is focal stenosis of the trachea at the thoracic inlet. IMPRESSION: 1. Stable airspace opacities in right lower lung zone and left mid and lower lung zones, likely a com bination of pneumonia and atelectasis. 2. Chronic elevation of left hemidiaphragm. 3. Focal stenosis of the trachea at the site of prior tracheostomy. Reviewed, dictated and finalized at location A. IMPRESSION: 1. Stable airspace opacities in right lower lung zone and left mid and lower colin ng zones, likely a combination of pneumonia and atelectasis. 2. Chronic elevation of left hemidiaphragm. 3. Focal stenosis of the trachea at the site of prior tracheostomy.
--- NOTE | ~2024-08-18 | CT_ITS ---
EXAMINATION: CT soft tissue neck wo con DATE: 08/21/2024 11:37 INDICATION: Tracheal stenosis. TECHNIQUE: Computed tomography (CT) of the neck was performed without intravenous contrast. Automated exposure control and iterative reconstruction technique were employed. The dose-length product was 8 86.84 mGy-cm. COMPARISON: Neck CT 07/09/2024, chest CT 08/18/2024, 07/08/24 FINDINGS: There is focal stenosis of the trachea at the site of the prior tracheostomy. The orbits ar e normal. There are no pathologically enlarged lymph nodes. Again seen is fat stranding in anterior r ight upper chest. A right upper extremity peripherally inserted central venous catheter (PICC) is see n with tip not included. There is mild cervical spondylosis. IMPRESSION: 1. Focal stenosis of the trachea at the site of the prior tracheostomy, improved from the CT on 2023. 2. Fat stranding again seen in anterior right upper chest, likely edema or inflammation. Reviewed, dictated and finalized at location A. IMPRESSION: 1. Focal stenosis of the trachea at the site of the prior tracheostomy, improve d from the CT on 07/09/2024. 2. Fat stranding again seen in anterior right upper chest, likely edema or infl ammation.
--- NOTE | 2024-08-18 06:45 | ECG_ITS ---
Test Date: 2024-08-18 06:56:55 Measurements Intervals [place] Rate: 103 P: 69 KS: 171 QRS: 26 QRSD: 101 T: 233 QT: 339 QTc: 445 Interpretive Statements SINUS TACHYCARDIA WITH OCCASIONAL ECTOPIC PREMATURE COMPLEXES baseline artifact limits interpretation INFERIOR MYOCARDIAL INFARCTION , OF INDETERMINATE AGE [40+ ms Q WAVE AND/OR ST/T ABNORMALITY IN II/aVF] Compared to ECG 07/30/2024 19:45:47 basal artifact limits interpretation no change compared to prior EKG Electronically Signed On 08-18-2024 11:38:15 CDT by Irvin Nixon M.D.
[2024-08-18 06:51] LABS: Alveolar/Arterial O2 Gradient 542.7 mmHg; Base Excess ABG -4.4 mEq/l (+/-2.0); Fractional Inspired Oxygen 100 %; Oxygen Content ABG 14.7 %vol (16.0-22.0); Oxygen Saturation ABG 96.9 % (95.0-100.0); Oxyhemoglobin 96.3 % THb (90.0-100.0); PO2 ABG 109.4 mmHg (80.0-100.0); PO2 FiO2 Ratio Arterial Blood 1.09 %; Total Hemoglobin 10.7 g/dL (12.0-18.0)
--- NOTE | 2024-08-18 06:53 | ED_ITS ---
HPI - General Adult General Chief complaint: Shortness of Breath/Dyspnea <Toby Sargent MD - Last Filed: 08/18/24 07:01> Stated complaint: Fall, resp distress <Toby Sargent MD - Last Filed: 08/18/24 07:01> Time Seen by Provider: 08/18/24 06:43 <Toby Sargent MD - Last Filed: 08/18/24 07:01> History of Present Illness HPI narrative: Patient is a 64-year-old gentleman well known to our emergency department with history of tracheal stenosis and COPD that presents emergency department chief complaint of shortness of breath. Patient apparently fell out of his bed this evening struck his face and was found minimally responsive by EMS having shortness of breath. The patient had some assisted ventilations done by EMS and then woke up and was combative with them the patient now is able answer some questions <Toby Sargent MD - Last Filed: 08/18/24 07:01> Related Data Home medications: Home Medications Medication Instructions Recorded Confirmed insulin syringe-needle U-100 11/14 #90 ea 03/05/20 08/18/24 mL 31 gauge x 15/64 pen needle, diabetic 31 gauge x #30 ea 03/05/20 08/18/24/16 sodium phosphates 19 gram-7 118 ml RECTAL ONCE PRN Constipation 03/04/2405/06 gram/118 mL enema (Fleet Enema) acetaminophen 325 mg tablet 650 mg feeding tube Q4H PRN pain 07/08/24 08/18/24 or fever amlodipine 5 mg tablet 5 mg feeding tube DAILY 07/08/24 08/18/24 atorvastatin 40 mg tablet 40 mg feeding tube HS 07/08/24 08/18/24 bisacodyl 10 mg rectal suppository 10 mg RECTAL DAILY PRN Constipation 07/08/24 08/18/24 clopidogrel 75 mg tablet 75 mg feeding tube QAM 07/08/24 08/18/24 insulin glargine 100 unit/mL (3 25 unit subcut DAILY 07/08/24 08/18/24 mL) subcutaneous pen magnesium citrate 296 ml PO DAILY PRN Constipation 07/08/24 08/18/24 magnesium hydroxide 400 mg/5 mL 30 ml PO HS PRN Constipation 07/08/24 08/18/24 oral suspension (Milk of Magnesia) metoprolol tartrate 50 mg tablet 25 mg feeding tube Q12HR 07/08/24 08/18/24 apixaban 5 mg tablet 5 mg feeding tube BID 08/18/24 08/18/24 ascorbic acid (vitamin C) 500 mg 500 mg feeding tube DAILY 08/18/24 08/18/24 tablet aspirin 81 mg tablet,delayed 81 mg feeding tube DAILY 08/18/24 08/18/24 release balsam jordi-castor oil topical 1 applic topical BID 08/18/24 08/18/24 ointment (Venelex topical ointment) fluticasone propionate 50 2 spray intranasal DAILY 08/18/24 08/18/24 mcg/actuation nasal spray,suspension insulin lispro 100 unit/mL See Rx Instructions .Route .COMPLEX 08/18/24 08/18/24 subcutaneous solution (Humalog U-100 Insulin) ipratropium 0.5 mg-albuterol 3 mg 3 ml inhalation Q6H 08/18/24 08/18/24 (2.5 mg base)/3 mL nebulization soln lansoprazole 30 mg delayed 30 mg PO DAILY 08/18/24 08/18/24 release,disintegrating tablet (Prevacid SoluTab) meclizine 12.5 mg tablet 12.5 mg feeding tube TID PRN 08/18/24 08/18/24 Dizziness miconazole nitrate 2 % topical 1 applic topical TID 08/18/24 08/18/24 cream (Micatin) multivitamin with minerals-folic 1 tablet PO DAILY 08/18/24 08/18/24 acid 0.4 mg tablet oxycodone 5 mg tablet 5 mg PO Q6H PRN Pain, Moderate 08/18/24 08/18/24 polyethylene glycol 3350 17 gram 17 g feeding tube DAILY 08/18/24 08/18/24 oral powder packet simethicone 40 mg/0.6 mL oral 40 mg feeding tube HS PRN 08/18/24 08/18/24 drops,suspension Gastrointestinal Spasms Or Cramping tamsulosin 0.4 mg capsule (Flomax) 0.4 mg PO DAILY 08/18/24 08/18/24 zinc sulfate 220 mg capsule 220 mg PO DAILY 08/18/24 08/18/24 <Toby Sargent MD - Last Filed: 08/18/24 07:01> Allergies/adverse reactions: Allergies Allergy/AdvReac Type Severity Reaction Status Date / Time amoxicillin Allergy Severe shortness Verified 07/31/24 09:28 of breath Penicillins Allergy Severe Anaphylactic Verified 07/31/24 09:28 Shock trimethoprim Allergy Intermediate Unknown Verified 07/31/24 09:28 latex Allergy Unknown Unknown Verified 08/18/24 13:50 sulfamethoxazole Allergy Unknown Unknown Verified 08/18/24 13:51 cefuroxime Allergy Unknown Verified 07/31/24 09:28 cephalexin Allergy Unknown Verified 07/31/24 09:28 clindamycin Allergy Unknown Verified 07/31/24 09:28 gabapentin Allergy Unknown Verified 07/31/24 09:28 <Toby Sargent MD - Last Filed: 08/18/24 07:01> Review of Systems Review of Systems: A 10 system review of systems was completed on the patient and is negative except for what is stated in the HPI. Nursing and ancillary documentation was reviewed. <Toby Sargent MD - Last Filed: 08/18/24 07:01> [facility] Past Medical History Medical History: Medical History ADHD (attention deficit hyperactivity disorder) Cellulitis of both feet Chronic kidney disease, stage 3 Baseline creatinine between 1.5 and 1.60. Chronic pain syndrome On long-term opiates. Coronary artery disease With history of stents. Degenerative disc disease Diabetic foot infection Gangrene of toe of right foot GERD (gastroesophageal reflux disease) History of DVT of lower extremity Hospital discharge follow-up Hyperlipidemia Hypertension Insulin dependent type 2 diabetes mellitus Myocardial infarction Osteoarthritis Peripheral arterial disease Status post right lower extremity revascularization per Dr. Altman. Shortness of breath on exertion Tobacco abuse <Toby Sargent MD - Last Filed: 08/18/24 07:01> Surgical History Surgical History: Surgical History H/O cardiac catheterization History of left-sided carotid endarterectomy History of revascularization procedure of lower extremity Right lower extremity angioplasty and stent per Dr. Hurt. Hx of right BKA Tracheostomy status Placed on 04/01/2024 due to prolonged intubation status post STEMI <Toby Sargent MD - Last Filed: 08/18/24 07:01> Family History Family History: Family History Father , age 91 CAD Acute myocardial infarction Mother , age 85 CVA Cerebrovascular accident Other Family history of arthritis Family history of cardiovascular disease Family history of chronic obstructive pulmonary disease Family history of mental disorder Hypertension <Toby Sargent MD - Last Filed: 08/18/24 07:01> Social History Social History: Social History Social History: The patient is currently at [facility]. He designates his cousin Jaskaran Carr as his surrogate decision-maker and he wishes to be a full code. 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 He smokes between 5 and 20 cigarettes and 20 cigarettes/day. No drug use. He has no children. He has never been . Smoking packs per day: 3 Smoking cigarettes per day: 60.0 Years smoked: 44 Smoking pack-years: 132.00 Smoking status: Former smoker Tobacco type: cigarettes Second hand tobacco smoke exposure: No Additional smoking assessment comments: patient stated i smoke one cigar every 6 hours Alcohol intake: never Substance use: former Substance use type: marijuana Other substance usage details: once a month before [facility] admission; used for pain Last use: 03/16/2020 Do You Feel Safe in your Home?: Yes Lack of Transportation: YES Lack of Food: Never True Current Housing: I Do Not Have Housing Concerned About Future Housing: YES Difficulty Paying Gas/Electric Bills: YES Difficulty Paying for Meds: No Currently Unemployed: No Education: Bachelor's Degree Difficulty w/ Childcare or Family Care: No Gender identity (if verbalized by the patient): Male Spiritual care concerns: No Agree to blood products: Yes <Toby Sargent MD - Last Filed: 08/18/24 07:01> Exam Narrative: GENERAL: Ill-appearing, well-nourished, and in no acute distress. HEAD: Normocephalic, atraumatic. EYES: PERRLA and EOMI. ENT: Nares clear, no rhinorrhea or epistaxis. Mucous membranes moist. NECK: Supple. CHEST: Clear to auscultation. No respiratory distress. HEART: Regular rate and rhythm. No murmur heard. Normal peripheral pulses. ABDOMEN: Soft, nontender, nondistended, normal active bowel sounds. EXTREMITIES: Normal range of motion bilateral below-knee. No edema. SKIN: Warm, dry, no rash. NEURO: No focal deficits. Alert and oriented x3. PSYCH: Normal mood and affect. <Toby Sargent MD - Last Filed: 08/18/24 07:01> Course Course Emergency Course: 64-year-old male presents emergency department for evaluation of worsening shortness of breath. Chest x-ray was concerning for pneumonia. Patient also has a significant decubitus ulcer. Patient was started on antibiotics for both pneumonia and the decubitus ulcer. Patient's initial ABG showed an elevated pCO2 but after being on BiPAP in the emergency department patient's ABG has significantly improved. His current settings are 16/8 with an FiO2 of only 40%. FiO2 is being decreased after the most recent ABG. Case was discussed with the hospitalist. Due to the patient's respiratory status improved patient will be admitted to the IMU. <Kurt Malagon MD - Last Filed: 08/18/24 17:03> Vital Signs Vital signs: Vital Signs Temperature 98.2 F 08/18/24 06:37 Pulse Rate 100 08/18/24 06:37 Respiratory Rate 26 H 08/18/24 06:37 Blood Pressure 133/92 H 08/18/24 06:37 Pulse Oximetry 92 08/18/24 06:37 Oxygen Delivery Non-Rebreather Mask 08/18/24 06:37 Oxygen Flow Rate 15 08/18/24 06:37 Temperature 97.8 F 08/18/24 16:00 Pulse Rate 90 08/18/24 16:00 Respiratory Rate 20 08/18/24 16:00 Blood Pressure 158/80 H 08/18/24 16:00 Pulse Oximetry 99 08/18/24 16:00 Oxygen Delivery BiPAP 08/18/24 14:25 Oxygen Flow Rate 15 08/18/24 06:37 Fraction of Inspired Oxygen 30 08/18/24 14:24 <Toby Sargent MD - Last Filed: 08/18/24 07:01> Vital Signs Temperature 98.2 F 08/18/24 06:37 Pulse Rate 100 08/18/24 06:37 Respiratory Rate 26 H 08/18/24 06:37 Blood Pressure 133/92 H 08/18/24 06:37 Pulse Oximetry 92 08/18/24 06:37 Oxygen Delivery Non-Rebreather Mask 08/18/24 06:37 Oxygen Flow Rate 15 08/18/24 06:37 Temperature 97.8 F 08/18/24 16:00 Pulse Rate 90 08/18/24 16:00 Respiratory Rate 20 08/18/24 16:00 Blood Pressure 158/80 H 08/18/24 16:00 Pulse Oximetry 99 08/18/24 16:00 Oxygen Delivery BiPAP 08/18/24 14:25 Oxygen Flow Rate 15 08/18/24 06:37 Fraction of Inspired Oxygen 30 08/18/24 14:24 <Kurt Malagon MD - Last Filed: 08/18/24 17:03> Medical Decision Making MDM Narrative Medical decision making narrative: 64 old male presenting to the emergency department for evaluation for an episode of respiratory distress that did improve with BiPAP. Patient's initial pCO2 was elevated at 60.9. Patient's repeat ABG pCO2 of 23.7. Patient was observed in the emergency department for 3 hours and continue to improve. Patient has no stridor and no evidence of respiratory distress. Patient was afebrile but does have an elevated white blood cell count of 18.5 and hemoglobin of 9.0. Hemoglobin is similar to his baseline. Patient was hyperglycemic but no evidence of DKA. Patient's initial troponin was elevated at 0.130 patient has an elevated BNP greater than 3000, no acute changes on the EKG. Patient was negative for influenza RSV and for COVID. Patient was started on antibiotics for concern for pneumonia and for a decubitus ulcer. <Kurt Malagon MD - Last Filed: 08/18/24 17:03> Differential Diagnosis Differential Diagnosis: Pneumonia, cellulitis, ACS, CHF <Kurt Malagon MD - Last Filed: 08/18/24 17:03> Vital Signs Vital Signs: Vital Signs Temperature 98.2 F 08/18/24 06:37 Pulse Rate 100 08/18/24 06:37 Respiratory Rate 26 H 10/06/24 06:37 Blood Pressure 133/92 H 08/18/24 06:37 Pulse Oximetry 92 08/18/24 06:37 Oxygen Delivery Non-Rebreather Mask 08/18/24 06:37 Oxygen Flow Rate 15 08/18/24 06:37 Temperature 97.8 F 08/18/24 16:00 Pulse Rate 90 08/18/24 16:00 Respiratory Rate 20 08/18/24 16:00 Blood Pressure 158/80 H 08/18/24 16:00 Pulse Oximetry 99 08/18/24 16:00 Oxygen Delivery BiPAP 08/18/24 14:25 Oxygen Flow Rate 15 08/18/24 06:37 Fraction of Inspired Oxygen 30 08/18/24 14:24 <Toby Sargent MD - Last Filed: 08/18/24 07:01> Vital Signs Temperature 98.2 F 08/18/24 06:37 Pulse Rate 100 08/18/24 06:37 Respiratory Rate 26 H 08/18/24 06:37 Blood Pressure 133/92 H 08/18/24 06:37 Pulse Oximetry 92 08/18/24 06:37 Oxygen Delivery Non-Rebreather Mask 08/18/24 06:37 Oxygen Flow Rate 15 08/18/24 06:37 Temperature 97.8 F 08/18/24 16:00 Pulse Rate 90 08/18/24 16:00 Respiratory Rate 20 08/18/24 16:00 Blood Pressure 158/80 H 08/18/24 16:00 Pulse Oximetry 99 08/18/24 16:00 Oxygen Delivery BiPAP 08/18/24 14:25 Oxygen Flow Rate 15 08/18/24 06:37 Fraction of Inspired Oxygen 30 08/18/24 14:24 <Kurt Malagon MD - Last Filed: 08/18/24 17:03> Lab Data Result diagrams: 08/18/24 10:50 08/18/24 10:50 <Toby Sargent MD - Last Filed: 08/18/24 07:01> Labs: Lab Results 08/18/24 08/18/24 08/18/24 Range/Units 08:22 08:26 10:38 WBC (4.5-10.0) K/mm3 RBC (4.6-6.20) M/mm3 Hgb (14.0-18.0) g/dL Hct (42.0-52.0) % MCV (80-100) fl MCH (26-34) pg MCHC (32-36) g/dl RDW (11.5-14.5) % Plt Count (150-375) k/mm3 MPV (7.4-10.4) fl Immature Gran % (Auto) (0-0.5) % Neut % (Auto) (45.5-73.1) % Lymph % (Auto) (18.3-44.2) % [place] % (Auto) (2.6-8.5) % Eos % (Auto) (0-4.4) % Baso % (Auto) (0.2-1.2) % Lymph # (Auto) (0.9-3.2) K/mm3 [place] # (Auto) (0.1-0.6) K/mm3 Eos # (Auto) (0-0.3) K/mm3 Baso # (Auto) (0.0-0.1) K/mm3 Abs Immat Gran (auto) (0.00-0.031) K/mm3 Absolute Neuts (auto) (1.3-6.7) K/mm3 Absolute Nucleated RBC (0.0-0.012) K/mm3 Nucleated RBC % (0.0-0.2) % Platelet Estimate (Adequate) Anisocytosis Schistocytes PT (11.1-14.7) Seconds INR APTT (22.3-36.8) Seconds Methemoglobin 0.1 (0-1.5) %THb Expiratory Pressure 8 cmH2O Inspiratory Pressure 16 cmH2O Sodium (137-145) mmol/L Potassium (3.4-5.0) mmol/L Chloride (98-107) mmol/L Carbon Dioxide (22-30) mmol/L Anion Gap (4-12) mmol/L BUN (9-20) mg/dL Creatinine (0.7-1.3) mg/dL Estim Creat Clear Calc ml/min Estimated GFR (59 - ) Glucose (65-110) mg/dL Lactic Acid (0.7-2.0) mmol/L Calcium (8.4-10.2) mg/dL Magnesium (1.6-2.3) mg/dL Total Bilirubin (0.2-1.3) mg/dL AST (17-59) U/L ALT (6-50) U/L Alkaline Phosphatase (38-126) U/L Troponin I (0.000-0.034) ng/mL NT-Pro-B Natriuret Pep (19.9-100) pg/mL Total Protein (6.3-8.2) g/dL Albumin (3.5-5.1) g/dL Lipase (23-300) U/L Procalcitonin ng/mL Urine Color Pending Urine Appearance Pending Urine pH Pending Ur Specific [place] Pending Urine Protein Pending Urine Glucose (UA) Pending Urine Ketones Pending Ur Blood (Man) Pending Urine Nitrate Pending Urine Bilirubin Pending Urine Urobilinogen Pending Leukocyte Esterase Rfl Pending Influenza A (RT-PCR) Negative (Negative) Influenza B (RT-PCR) Negative (Negative) RSV (RT-PCR) Negative (Negative) SARS-CoV-2 RNA (RT-PCR) Negative (Negative) 08/18/24 Range/Units 10:50 WBC 18.5 H (4.5-10.0) K/mm3 RBC 2.92 L (4.6-6.20) M/mm3 Hgb 9.0 L (14.0-18.0) g/dL Hct 28.9 L (42.0-52.0) % MCV 99.0 (80-100) fl MCH 30.8 (26-34) pg MCHC 31.1 L (32-36) g/dl RDW 19.5 H (11.5-14.5) % Plt Count 233 (150-375) k/mm3 MPV 10.8 H (7.4-10.4) fl Immature Gran % (Auto) 0.8 H (0-0.5) % Neut % (Auto) 96.1 H (45.5-73.1) % Lymph % (Auto) 1.9 L (18.3-44.2) % [place] % (Auto) 1.0 L (2.6-8.5) % Eos % (Auto) 0.0 (0-4.4) % Baso % (Auto) 0.2 (0.2-1.2) % Lymph # (Auto) 0.36 L (0.9-3.2) K/mm3 [place] # (Auto) 0.2 (0.1-0.6) K/mm3 Eos # (Auto) 0.0 (0-0.3) K/mm3 Baso # (Auto) 0.0 (0.0-0.1) K/mm3 Abs Immat Gran (auto) 0.14 H (0.00-0.031) K/mm3 Absolute Neuts (auto) 17.8 H (1.3-6.7) K/mm3 Absolute Nucleated RBC 0.000 (0.0-0.012) K/mm3 Nucleated RBC % 0.0 (0.0-0.2) % Platelet Estimate Adequate (Adequate) Anisocytosis 1+ Schistocytes None seen PT 14.2 (11.1-14.7) Seconds INR 1.1 APTT 21.6 L (22.3-36.8) Seconds Methemoglobin (0-1.5) %THb Expiratory Pressure cmH2O Inspiratory Pressure cmH2O Sodium 131 L (137-145) mmol/L Potassium 5.3 H (3.4-5.0) mmol/L Chloride 94 L (98-107) mmol/L Carbon Dioxide 26 (22-30) mmol/L Anion Gap 11 (4-12) mmol/L BUN 39 H D (9-20) mg/dL Creatinine 0.80 (0.7-1.3) mg/dL Estim Creat Clear Calc 95 ml/min Estimated GFR > 60 (59 - ) Glucose 585 H* (65-110) mg/dL Lactic Acid 1.7 (0.7-2.0) mmol/L Calcium 9.3 (8.4-10.2) mg/dL Magnesium 2.2 (1.6-2.3) mg/dL Total Bilirubin 1.3 (0.2-1.3) mg/dL AST 28 (17-59) U/L ALT 27 (6-50) U/L Alkaline Phosphatase 162 H (38-126) U/L Troponin I 0.130 H* (0.000-0.034) ng/mL NT-Pro-B Natriuret Pep 3050 H (19.9-100) pg/mL Total Protein 7.0 (6.3-8.2) g/dL Albumin 3.8 (3.5-5.1) g/dL Lipase 37 (23-300) U/L Procalcitonin 3.6 ng/mL Urine Color Urine Appearance Urine pH Ur Specific [place] Urine Protein Urine Glucose (UA) Urine Ketones Ur Blood (Man) Urine Nitrate Urine Bilirubin Urine Urobilinogen Leukocyte Esterase Rfl Influenza A (RT-PCR) (Negative) Influenza B (RT-PCR) (Negative) RSV (RT-PCR) (Negative) SARS-CoV-2 RNA (RT-PCR) (Negative) <Toby Sargent MD - Last Filed: 08/18/24 07:01> Lab Results 08/18/24 08/18/24 08/18/24 Range/Units 08:22 08:26 10:38 WBC (4.5-10.0) K/mm3 RBC (4.6-6.20) M/mm3 Hgb (14.0-18.0) g/dL Hct (42.0-52.0) % MCV (80-100) fl MCH (26-34) pg MCHC (32-36) g/dl RDW (11.5-14.5) % Plt Count (150-375) k/mm3 MPV (7.4-10.4) fl Immature Gran % (Auto) (0-0.5) % Neut % (Auto) (45.5-73.1) % Lymph % (Auto) (18.3-44.2) % [place] % (Auto) (2.6-8.5) % Eos % (Auto) (0-4.4) % Baso % (Auto) (0.2-1.2) % Lymph # (Auto) (0.9-3.2) K/mm3 [place] # (Auto) (0.1-0.6) K/mm3 Eos # (Auto) (0-0.3) K/mm3 Baso # (Auto) (0.0-0.1) K/mm3 Abs Immat Gran (auto) (0.00-0.031) K/mm3 Absolute Neuts (auto) (1.3-6.7) K/mm3 Absolute Nucleated RBC (0.0-0.012) K/mm3 Nucleated RBC % (0.0-0.2) % Platelet Estimate (Adequate) Anisocytosis Schistocytes PT (11.1-14.7) Seconds INR APTT (22.3-36.8) Seconds Methemoglobin 0.1 (0-1.5) %THb Expiratory Pressure 8 cmH2O Inspiratory Pressure 16 cmH2O Sodium (137-145) mmol/L Potassium (3.4-5.0) mmol/L Chloride (98-107) mmol/L Carbon Dioxide (22-30) mmol/L Anion Gap (4-12) mmol/L BUN (9-20) mg/dL Creatinine (0.7-1.3) mg/dL Estim Creat Clear Calc ml/min Estimated GFR (59 - ) Glucose (65-110) mg/dL Lactic Acid (0.7-2.0) mmol/L Calcium (8.4-10.2) mg/dL Magnesium (1.6-2.3) mg/dL Total Bilirubin (0.2-1.3) mg/dL AST (17-59) U/L ALT (6-50) U/L Alkaline Phosphatase (38-126) U/L Troponin I (0.000-0.034) ng/mL NT-Pro-B Natriuret Pep (19.9-100) pg/mL Total Protein (6.3-8.2) g/dL Albumin (3.5-5.1) g/dL Lipase (23-300) U/L Procalcitonin ng/mL Urine Color Pending Urine Appearance Pending Urine pH Pending Ur Specific [place] Pending Urine Protein Pending Urine Glucose (UA) Pending Urine Ketones Pending Ur Blood (Man) Pending Urine Nitrate Pending Urine Bilirubin Pending Urine Urobilinogen Pending Leukocyte Esterase Rfl Pending Influenza A (RT-PCR) Negative (Negative) Influenza B (RT-PCR) Negative (Negative) RSV (RT-PCR) Negative (Negative) SARS-CoV-2 RNA (RT-PCR) Negative (Negative) 08/18/24 Range/Units 10:50 WBC 18.5 H (4.5-10.0) K/mm3 RBC 2.92 L (4.6-6.20) M/mm3 Hgb 9.0 L (14.0-18.0) g/dL Hct 28.9 L (42.0-52.0) % MCV 99.0 (80-100) fl MCH 30.8 (26-34) pg MCHC 31.1 L (32-36) g/dl RDW 19.5 H (11.5-14.5) % Plt Count 233 (150-375) k/mm3 MPV 10.8 H (7.4-10.4) fl Immature Gran % (Auto) 0.8 H (0-0.5) % Neut % (Auto) 96.1 H (45.5-73.1) % Lymph % (Auto) 1.9 L (18.3-44.2) % [place] % (Auto) 1.0 L (2.6-8.5) % Eos % (Auto) 0.0 (0-4.4) % Baso % (Auto) 0.2 (0.2-1.2) % Lymph # (Auto) 0.36 L (0.9-3.2) K/mm3 [place] # (Auto) 0.2 (0.1-0.6) K/mm3 Eos # (Auto) 0.0 (0-0.3) K/mm3 Baso # (Auto) 0.0 (0.0-0.1) K/mm3 Abs Immat Gran (auto) 0.14 H (0.00-0.031) K/mm3 Absolute Neuts (auto) 17.8 H (1.3-6.7) K/mm3 Absolute Nucleated RBC 0.000 (0.0-0.012) K/mm3 Nucleated RBC % 0.0 (0.0-0.2) % Platelet Estimate Adequate (Adequate) Anisocytosis 1+ Schistocytes None seen PT 14.2 (11.1-14.7) Seconds INR 1.1 APTT 21.6 L (22.3-36.8) Seconds Methemoglobin (0-1.5) %THb Expiratory Pressure cmH2O Inspiratory Pressure cmH2O Sodium 131 L (137-145) mmol/L Potassium 5.3 H (3.4-5.0) mmol/L Chloride 94 L (98-107) mmol/L Carbon Dioxide 26 (22-30) mmol/L Anion Gap 11 (4-12) mmol/L BUN 39 H D (9-20) mg/dL Creatinine 0.80 (0.7-1.3) mg/dL Estim Creat Clear Calc 95 ml/min Estimated GFR > 60 (59 - ) Glucose 585 H* (65-110) mg/dL Lactic Acid 1.7 (0.7-2.0) mmol/L Calcium 9.3 (8.4-10.2) mg/dL Magnesium 2.2 (1.6-2.3) mg/dL Total Bilirubin 1.3 (0.2-1.3) mg/dL AST 28 (17-59) U/L ALT 27 (6-50) U/L Alkaline Phosphatase 162 H (38-126) U/L Troponin I 0.130 H* (0.000-0.034) ng/mL NT-Pro-B Natriuret Pep 3050 H (19.9-100) pg/mL Total Protein 7.0 (6.3-8.2) g/dL Albumin 3.8 (3.5-5.1) g/dL Lipase 37 (23-300) U/L Procalcitonin 3.6 ng/mL Urine Color Urine Appearance Urine pH Ur Specific [place] Urine Protein Urine Glucose (UA) Urine Ketones Ur Blood (Man) Urine Nitrate Urine Bilirubin Urine Urobilinogen Leukocyte Esterase Rfl Influenza A (RT-PCR) (Negative) Influenza B (RT-PCR) (Negative) RSV (RT-PCR) (Negative) SARS-CoV-2 RNA (RT-PCR) (Negative) <Kurt Malagon MD - Last Filed: 08/18/24 17:03> ABG Data ABG results: 08/18/24 08/18/24 06:49 10:38 Puncture Site Left radial Left radial ABG pH 7.213 L* 7.472 H ABG pCO2 60.9 H* 23.7 L* ABG pO2 109.4 H 136.7 H ABG PO2/FiO2 Ratio 1.09 3.42 ABG HCO3 24.0 16.9 L ABG O2 Saturation 96.9 98.9 ABG O2 Content 14.7 L 11.0 L ABG Base Excess -4.4 -5.8 A-a Gradient 542.7 121.2 Oxyhemoglobin 96.3 98.4 Carboxyhemoglobin 0.5 Reduced Hemoglobin 1.0 Total Hemoglobin 10.7 L 7.7 L* O2 Delivery Device Non-rebreather mask Bipap O2 Liters/Min 15.0 Not Reportable FiO2 100 40 <Toby Sargent MD - Last Filed: 08/18/24 07:01> 08/18/24 08/18/24 06:49 10:38 Puncture Site Left radial Left radial ABG pH 7.213 L* 7.472 H ABG pCO2 60.9 H* 23.7 L* ABG pO2 109.4 H 136.7 H ABG PO2/FiO2 Ratio 1.09 3.42 ABG HCO3 24.0 16.9 L ABG O2 Saturation 96.9 98.9 ABG O2 Content 14.7 L 11.0 L ABG Base Excess -4.4 -5.8 A-a Gradient 542.7 121.2 Oxyhemoglobin 96.3 98.4 Carboxyhemoglobin 0.5 Reduced Hemoglobin 1.0 Total Hemoglobin 10.7 L 7.7 L* O2 Delivery Device Non-rebreather mask Bipap O2 Liters/Min 15.0 Not Reportable FiO2 100 40 <Kurt Malagon MD - Last Filed: 08/18/24 17:03> Discharge Plan Discharge Clinical Impression: Decubitus ulcer, Pneumonia, Hypercapnia, Hyperglycemia, Elevated troponin <Toby Sargent MD - Last Filed: 08/18/24 07:01> Patient Disposition: Still a Patient <Toby Sargent MD - Last Filed: 08/18/24 07:01> Condition: Serious <Toby Sargent MD - Last Filed: 08/18/24 07:01>
[2024-08-18 06:54] LABS: Modified Allen's Test Pass; PCO2 ABG 60.9 mmHg (35.0-45.0); Site Drawn LEFT RADIAL; pH ABG 7.213 (7.350-7.450)
[2024-08-18 06:55] LABS: Device NON-REBREATHER MASK
[2024-08-18] MEDS: IPRATROPIUM 0.5 MG/ALBUTEROL SULFATE 2.5 MG AMPUL.NEB 3 ML INHALATION (07:05)
[2024-08-18 09:09] LABS: Influenza A QL RT-PCR Negative (Negative); Influenza B QL RT-PCR Negative (Negative); RSV RNA, RT-PCR Negative (Negative); SARS-CoV-2 RNA PCR Negative (Negative)
[2024-08-18 10:51] LABS: Alveolar/Arterial O2 Gradient 121.2 mmHg; Base Excess ABG -5.8 mEq/l (+/-2.0); Carboxyhemoglobin 0.5 % THb (0-2.0); Fractional Inspired Oxygen 40 %; HCO3 ABG 16.9 mEq/l (22.0-26.0); Methemoglobin ABG 0.1 %THb (0-1.5); Oxygen Saturation ABG 98.9 % (95.0-100.0); Oxyhemoglobin 98.4 % THb (90.0-100.0); PO2 ABG 136.7 mmHg (80.0-100.0); PO2 FiO2 Ratio Arterial Blood 3.42 %; pH ABG 7.472 (7.350-7.450)
[2024-08-18 10:52] LABS: PCO2 ABG 23.7 mmHg (35.0-45.0)
[2024-08-18 10:53] LABS: Device BIPAP; Modified Allen's Test Pass; Site Drawn LEFT RADIAL; Total Hemoglobin 7.7 g/dL (12.0-18.0)
[2024-08-18 10:54] LABS: Expiratory Pressure 8 cmH2O; Inspiratory Pressure 16 cmH2O
[2024-08-18 10:56] LABS: Basophils Percent Auto 0.2 % (0.2-1.2); Hematocrit 28.9 % (42.0-52.0); Immature Granulocyte Absolute 0.14 K/mm3 (0.00-0.031); Immature Granulocyte Percent A 0.8 % (0-0.5); Lymphocytes Absolute Auto 0.36 K/mm3 (0.9-3.2); Lymphocytes Percent Auto 1.9 % (18.3-44.2); Mean Corpuscular HGB Conc 31.1 g/dl (32-36); Mean Corpuscular Hemoglobin 30.8 pg (26-34); Mean Platelet Volume 10.8 fl (7.4-10.4); Monocytes Absolute Auto 0.2 K/mm3 (0.1-0.6); Neutrophils Absolute Auto 17.8 K/mm3 (1.3-6.7); Neutrophils Percent Auto 96.1 % (45.5-73.1); Platelet Count Result 233 k/mm3 (150-375); Red Blood Count 2.92 M/mm3 (4.6-6.20); Red Cell Distribution Width 19.5 % (11.5-14.5); White Blood Count 18.5 K/mm3 (4.5-10.0)
[2024-08-18 11:04] LABS: Lactic Acid Reflex 1.7 mmol/L (0.7-2.0)
[2024-08-18 11:05] LABS: INR 1.1; Prothrombin Time 14.2 Seconds (11.1-14.7)
[2024-08-18 11:06] LABS: Partial Thromboplastin Time 21.6 Seconds (22.3-36.8)
[2024-08-18 11:09] LABS: Platelet Estimate Adequate (Adequate)
[2024-08-18 11:10] LABS: Alanine Aminotransferase 27 U/L (6-50); Albumin Level 3.8 g/dL (3.5-5.1); Alkaline Phosphatase 162 U/L (38-126); Anion Gap 11 mmol/L (4-12); Anisocytosis 1+; Aspartate Amino Transferase 28 U/L (17-59); Bilirubin,Total 1.3 mg/dL (0.2-1.3); Blood Urea Nitrogen 39 mg/dL (9-20); Calcium 9.3 mg/dL (8.4-10.2); Carbon Dioxide 26 mmol/L (22-30); Chloride 94 mmol/L (98-107); Estimated CRCL calculation 95 ml/min; Estimated Glomerular Filt Rate > 60; Glucose 585 mg/dL (65-110); Lipase 37 U/L (23-300); Magnesium 2.2 mg/dL (1.6-2.3); Potassium 5.3 mmol/L (3.4-5.0); Schistocytes None Seen; Sodium 131 mmol/L (137-145)
[2024-08-18 11:20] LABS: NT Pro B Type Natriuretic Pept 3050 pg/mL (19.9-100)
[2024-08-18 11:48] LABS: Procalcitonin 3.6 ng/mL
--- NOTE | 2024-08-18 11:59 | PC.NURSE ---
pt had large BM when providing pericare large stage 4 pressure ulcer noted to coccyx. area irrigated with NS to clean off fecal matter, wet to dry dressing to wound then mepilex applied
[2024-08-18] MEDS: SODIUM CHLORIDE 0.9% IV 1,000 ML 250 ML IV CONT (12:20)
[2024-08-18] MEDS: metroNIDAZOLE 500 MG/ISO 100ML 500 MG/100 ML BAG 100 MG IVPB ×2 (12:20→17:16)
[2024-08-18] MEDS: INSULIN HUMAN REGULAR (*BKC) 100 UNITS/ML 6 UNITS IV PUSH (12:23)
--- NOTE | 2024-08-18 12:42 | ADMGEN ---
This patient, Noel Rodriguez, was admitted to IMU Room 232-01. Patient/family oriented to hospital policies and general routines including ID bracelet, bed and alarms, visiting hours, pain management, procedures, bathroom and other care routines, personal items, smoking policy, room service/diet, and visiting hours. Information on how to activate the Rapid Response Team has been discussed. Patient/Family are encouraged to report perceived risks to care and to ask questions if they do not understand what they are told or what they should do.
--- NOTE | 2024-08-18 13:11 | PM.IMHP ---
H&P: HPI History of Present Illness Date/Time: 08/18/24 13:11 Chief Complaint: shortness of breath Narrative: Patient is a 64-year-old gentleman who presents to the emergency department with chief complaints of shortness of breath. Patient apparently fell out of his bed this evening struck his face and was found minimally responsive by EMS having shortness of breath. The patient had some assisted ventilations done by EMS and then woke up and was combative with them the patient now is able answer some questions. He was recently discharged from [facility] after being admitted for intubation. He was placed on non-rebreather mask on arrival to the ED. he was eventually switched to BiPAP and has been feeling better since then. Patient is awake and alert hard for me to understand with the BiPAP on received DuoNeb treatment and IV antibiotics. His blood sugar was high for which he got some insulin. Repeat ABG was improved and hence was admitted to IMU for further treatment. It was discussed with the ED physician before he could be admitted because of his recurrent admissions and status of tracheal stenosis which cannot be dealt here in this hospital. Review of Systems Review of Systems: ROS unobtainable: Yes unobtainable due to mental status PMFSH Past Medical History Medical History ADHD (attention deficit hyperactivity disorder) Cellulitis of both feet Chronic kidney disease, stage 3 Baseline creatinine between 1.5 and 1.60. Chronic pain syndrome On long-term opiates. Coronary artery disease With history of stents. Degenerative disc disease Diabetic foot infection Gangrene of toe of right foot GERD (gastroesophageal reflux disease) History of DVT of lower extremity Hospital discharge follow-up Hyperlipidemia Hypertension Insulin dependent type 2 diabetes mellitus Myocardial infarction Osteoarthritis Peripheral arterial disease Status post right lower extremity revascularization per Dr. Altman. Shortness of breath on exertion Tobacco abuse Surgical History Surgical History H/O cardiac catheterization History of left-sided carotid endarterectomy History of revascularization procedure of lower extremity Right lower extremity angioplasty and stent per Dr. Hurt. Hx of right BKA Tracheostomy status Placed on 04/01/2024 due to prolonged intubation status post STEMI Family History Family History Father , age 91 CAD Acute myocardial infarction Mother , age 85 CVA Cerebrovascular accident Other Family history of arthritis Family history of cardiovascular disease Family history of chronic obstructive pulmonary disease Family history of mental disorder Hypertension Social History Social History Social History: The patient is currently at [facility]. He designates his cousin Jaskaran Carr as his surrogate decision-maker and he wishes to be a full code. 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 He smokes between 5 and 20 cigarettes and 20 cigarettes/day. No drug use. He has no children. He has never been . Smoking packs per day: 3 Smoking cigarettes per day: 60.0 Years smoked: 44 Smoking pack-years: 132.00 Smoking status: Former smoker Tobacco type: cigarettes Second hand tobacco smoke exposure: No Additional smoking assessment comments: patient stated i smoke one cigar every 6 hours Alcohol intake: never Substance use: former Substance use type: marijuana Other substance usage details: [facility]; used for [facility] Last use: 03/16/2020 Do You Feel Safe in your Home?: Yes Lack of Transportation: YES Lack of Food: Never True Current Housing: I Do Not Have Housing Concerned About Future Housing: YES Difficulty Paying Gas/Electric Bills: YES Difficulty Paying for Meds: No Currently Unemployed: No Education: Bachelor's Degree Difficulty w/ Childcare or Family Care: No Gender identity (if verbalized by the patient): Male Spiritual care concerns: No Agree to blood products: Yes Meds Home Medications and Allergies Home Medications Medication Instructions Recorded Confirmed Type insulin syr/ndl U100 half liz 0.3 #100 ea 12/12/19 07/08/24 Rx mL 31 gauge x 5/16 (BD Insulin Syringe Ultra-Fine (half unit)) insulin syringe-needle U-100 1/2 #90 ea 03/05/20 07/08/24 History mL 31 gauge x 15/64 pen needle, diabetic 31 gauge x #30 ea 03/05/20 07/08/24 History 3/16 blood-glucose meter #1 ea 04/23/20 07/08/24 Rx tramadol 50 mg tablet 50 mg PO Q6H PRN Pain 11/15/23 07/08/24 History sodium phosphates 19 gram-7 118 ml RECTAL ONCE PRN Constipation 03/04/24 07/08/24 History gram/118 mL enema (Fleet Enema) Lactobacillus acidophilus 250 mg feeding tube DAILY 07/08/24 07/08/24 History acetaminophen 325 mg tablet 650 mg feeding tube Q4H PRN pain 07/08/24 08/18/24 History or fever amlodipine 5 mg tablet 5 mg feeding tube DAILY 07/08/24 08/18/24 History atorvastatin 40 mg tablet 40 mg feeding tube HS 07/08/24 08/18/24 History bisacodyl 10 mg rectal suppository 10 mg RECTAL DAILY PRN Constipation 07/08/24 08/18/24 History clopidogrel 75 mg tablet 75 mg feeding tube QAM 07/08/24 08/18/24 History ergocalciferol (vitamin D2) 50,000 50,000 unit WEEKLY 07/08/24 07/08/24 History unit tablet guaifenesin 100 mg/5 mL oral liquid 200 mg PO Q4H PRN Cough 07/08/24 07/08/24 History insulin aspart U-100 100 unit/mL 1 sliding scale dose subcut 07/08/24 07/08/24 History (3 mL) subcutaneous pen (Novolog USEASDIRECTD FlexPen U-100 Insulin aspart) insulin glargine 100 unit/mL (3 25 unit subcut BID 07/08/24 07/08/24 History mL) subcutaneous pen magnesium citrate 296 ml PO DAILY PRN Constipation 07/08/24 07/08/24 History magnesium hydroxide 400 mg/5 mL 30 ml PO HS PRN Constipation 07/08/24 07/08/24 History oral suspension (Milk of Magnesia) menthol 0.44 %-zinc oxide 20.6 % 1 applic topical DAILY 07/08/24 07/08/24 History topical ointment (Calmoseptine) metoprolol tartrate 50 mg tablet 50 mg feeding tube Q12HR 07/08/24 07/08/24 History mirtazapine 15 mg disintegrating 15 mg feeding tube HS 07/08/24 07/08/24 History tablet omeprazole 40 mg capsule,delayed 40 mg feeding tube BID 07/08/24 07/08/24 History release ondansetron 4 mg disintegrating 4 mg PO Q6H PRN Nausea And Vomiting 07/08/24 07/08/24 History tablet polyethylene glycol 3350 17 gram 17 g feeding tube QAM PRN 07/08/24 07/08/24 History oral powder packet (Miralax) Constipation silver sulfadiazine 1 % topical 1 applic topical DAILY 07/08/24 07/08/24 History cream (Silvadene) apixaban 5 mg tablet 5 mg PO BID 08/18/24 08/18/24 History ascorbic acid (vitamin C) 500 mg 500 mg PO DAILY 08/18/24 08/18/24 History tablet aspirin 81 mg tablet,delayed 81 mg feeding tube DAILY 08/18/24 08/18/24 History release Allergies Allergy/AdvReac Type Severity Reaction Status Date / Time amoxicillin Allergy Severe shortness Verified 07/31/24 09:28 of breath Penicillins Allergy Severe Anaphylactic Verified 07/31/24 09:28 Shock trimethoprim Allergy Intermediate Unknown Verified 07/31/24 09:28 latex Allergy Unknown Unknown Verified 08/18/24 13:50 sulfamethoxazole Allergy Unknown Unknown Verified 08/18/24 13:51 cefuroxime Allergy Unknown Verified 07/31/24 09:28 cephalexin Allergy Unknown Verified 07/31/24 09:28 clindamycin Allergy Unknown Verified 07/31/24 09:28 gabapentin Allergy Unknown Verified 07/31/24 09:28 Vital Signs Vital Signs - 24 hr 08/18/24 06:37 08/18/24 06:48 08/18/24 07:19 Temperature 98.2 F Pulse Rate 100 116 H 118 H Respiratory Rate 26 H 27 H 27 H Blood Pressure 133/92 H Pulse Oximetry 92 Oxygen Delivery Non-Rebreather Mask BiPAP Oxygen Flow Rate 15 08/18/24 07:28 08/18/24 09:02 08/18/24 07:00 Temperature Pulse Rate 115 H 108 H Respiratory Rate 25 H 31 H Blood Pressure Pulse Oximetry Oxygen Delivery BiPAP BiPAP Oxygen Flow Rate 08/18/24 07:01 08/18/24 07:45 08/18/24 08:48 Temperature 97.6 F 97.9 F Pulse Rate 106 H 110 H 112 H Respiratory Rate 24 H 15 23 H Blood Pressure 138/96 H 136/94 H 128/88 Pulse Oximetry 100 100 100 Oxygen Delivery Oxygen Flow Rate 08/18/24 09:30 08/18/24 10:35 08/18/24 11:15 Temperature 97.8 F 97.9 F 97.7 F Pulse Rate 103 H 103 H 104 H Respiratory Rate 23 H 20 16 Blood Pressure 126/76 120/68 Pulse Oximetry 98 100 100 Oxygen Delivery Oxygen Flow Rate 08/18/24 11:59 08/18/24 12:49 08/18/24 13:05 Temperature 98 F Pulse Rate 103 H 95 100 Respiratory Rate 27 H 20 26 H Blood Pressure 141/69 H Pulse Oximetry 97 Oxygen Delivery BiPAP BiPAP Oxygen Flow Rate Exam Narrative: GENERAL: Ill-appearing, well-nourished, and in no acute distress. On BiPAP alert and awake HEAD: Normocephalic, atraumatic. EYES: PERRLA and EOMI. ENT: Nares clear, no rhinorrhea or epistaxis. Mucous membranes moist. NECK: Supple. CHEST: Coarse breath sound bilaterally no wheezing No respiratory distress. HEART: Regular rate and rhythm. No murmur heard. Normal peripheral pulses. ABDOMEN: Soft, nontender, nondistended, normal active bowel sounds. G-tube in place EXTREMITIES: Normal range of motion bilateral below-knee. No edema. SKIN: Warm, dry, no rash. NEURO: No focal deficits. Alert and awake PSYCH: Intermittently agitated H&P: Results Labs Labs: Short CBC 08/18/24 Range/Units 10:50 WBC 18.5 H (4.5-10.0) K/mm3 Hgb 9.0 L (14.0-18.0) g/dL Hct 28.9 L (42.0-52.0) % Plt Count 233 (150-375) k/mm3 BMP 08/18/24 10:50 Sodium 131 L Potassium 5.3 H Chloride 94 L Carbon Dioxide 26 BUN 39 H D Creatinine 0.80 Glucose 585 H* Calcium 9.3 Cardiac Enzymes 08/18/24 Range/Units 10:50 Troponin I 0.130 H* (0.000-0.034) ng/mL Liver Function 08/18/24 Range/Units 10:50 Total Bilirubin 1.3 (0.2-1.3) mg/dL AST 28 (17-59) U/L ALT 27 (6-50) U/L Alkaline Phosphatase 162 H (38-126) U/L Albumin 3.8 (3.5-5.1) g/dL Assessment and Plan Assessment and plan (1) Pneumonia: Code(s): J18.9 - Pneumonia, unspecified organism Status: Acute (2) Hypercapnia: Code(s): R06.89 - Other abnormalities of breathing Status: Acute (3) Hyperglycemia: Code(s): R73.9 - Hyperglycemia, unspecified Status: Acute (4) Elevated troponin: Code(s): R79.89 - Other specified abnormal findings of blood chemistry Status: Acute (5) Paroxysmal A-fib: Code(s): I48.0 - Paroxysmal atrial fibrillation Status: Acute (6) Tracheal stenosis: Code(s): J39.8 - Other specified diseases of upper respiratory tract Status: Acute (7) Decubitus ulcer: Code(s): L89.90 - Pressure ulcer of unspecified site, unspecified stage Status: Acute (8) COPD exacerbation: Code(s): J44.1 - Chronic obstructive pulmonary disease with (acute) exacerbation Status: Acute (9) Respiratory failure: Code(s): J96.90 - Respiratory failure, unspecified, unspecified whether with hypoxia or hypercapnia Status: Acute Plan This is a 64-year-old male presents emergency department for evaluation of worsening shortness of breath. On arrival to the ED he was afebrile with stable vitals except for tachypnea. He was initially on non-rebreather mask. Influenza RSV COVID swab was negative. ABG showed 7.21/60/109/24. He was placed on BiPAP Placed on non-rebreather mask. Repeat ABG after BiPAP was 7.47/23/136/16. EKG showed sinus tachycardia with occasional premature ectopic complexes nonspecific ST-T [place]. [place] [address] hemoglobin of 9 hematocrit of 29 platelet of 233. Potassium was 5.3 creatinine was 0.8 blood sugar was 585 BNP 3050. Troponin was 0.130. Chest x-ray showed right PICC line at mid SVC elevation of the left hemidiaphragm with likely combination of atelectasis and pneumonia in the left lower lung zone. CT chest abdomen pelvis without contrast showed consultation in the left lower lobe and lingula likely representing combination of atelectasis and pneumonia with additional more subtle pneumonia in the right middle and lower lungs. Cardiomegaly. Scattered tiny parenchymal calcification at the pancreatic likely sequelae of chronic pancreatitis. Deep sacral decubitus ulcer. Nonspecific stranding in the subcutaneous fat at the right pectoral region. Blood cultures has been obtained. Nasal MRSA swab was positive. Patient is started on vancomycin Levaquin and Flagyl. Acute on chronic hypercapnic respiratory failure Multifocal pneumonia urine antigens ordered Sacral decubitus ulcer wound consult Tracheal stenosis at the site of his tracheostomy History of tracheostomy 04/02/2024 for failure to wean Status post PEG tube placement on tube feed Status post right BKA Hypertension Peripheral arterial disease Anxiety Coronary artery disease with history of STEMI 02/2024 Paroxysmal Atrial fibrillation with history of electrical cardioversion in the past Diabetic peripheral neuropathy CKD stage 3 Normal sciatic anemia chronic Dyslipidemia Tobacco abuse Hypertension Type 2 diabetes on insulin DVT prophylaxis Code status full code
[2024-08-18] MEDS: VANCOMYCIN 1,250 MG/NS 250 ML 1,250 MG/250 ML BAG 166.67 MG IVPB ×2 (13:16→13:17)
[2024-08-18 13:43] LABS: Glucose Point of Care 485 mg/dl (65-105)
[2024-08-18] MEDS: IPRATROPIUM 0.5 MG/ALBUTEROL SULFATE 2.5 MG AMPUL.NEB 3 ML NEBULIZE ×2 (14:24→20:08)
[2024-08-18 14:44] LABS: Troponin I 0.186 ng/mL (0.000-0.034)
[2024-08-18 14:57] LABS: Hemoglobin A1C 8.2 % (<5.7)
[2024-08-18] MEDS: INSULIN ASPART (*BKC) 100 UNITS/ML 15 UNITS SUB-Q (16:01)
[2024-08-18] MEDS: CENTRAL LINE FLUSH 10 ML IV PUSH (16:05)
[2024-08-18 17:02] LABS: Glucose Point of Care 475 mg/dl (65-105)
[2024-08-18] MEDS: levoFLOXacin 750 MG/D5W 150 ML 750 MG/150 ML BAG 100 MG IVPB (17:03)
[2024-08-18] MEDS: APIXABAN 5 MG TABLET FEED TUBE (17:04)
[2024-08-18] MEDS: INSULIN ASPART (*BKC) 100 UNITS/ML SUB-Q (17:23)
[2024-08-18] MEDS: INSULIN GLARGINE (*BKC) 100 UNITS/ML 30 UNITS SUB-Q (17:24)
[2024-08-18] MEDS: MICONAZOLE NITRATE 2% CREAM 30 GM TUBE 1 APPLIC TOPICAL (17:36)
[2024-08-18 17:48] LABS: Add Urine Microscopic? YES; Appearance Urine Clear (Clear); Bacteria Urine None Seen /hpf; Bilirubin Urine Negative (Negative); Blood Urine Negative (Negative); Color Urine Yellow (Yellow); Glucose Urine UA 3+ mg/dL (Negative); Ketones Urine 1+ mg/dL (Negative); Leukocyte Esterase Ur Negative LEU/UL (Negative); Nitrate Urine Negative (Negative); Non Pathogenic Casts 0-2; Protein Urine 1+ mg/dL (Negative); RBC Urine 0-2 /hpf (0-2); Specific Grav Ur 1.025 (1.001-1.035); Squamous Epithelial Cell Urine None Seen /hpf (Few); Urobilinogen Urine 0.2 mg/dL (<2.0); WBC Urine 0-5 /hpf (0-3)
[2024-08-18] MEDS: oxyCODONE HCL (*CRX) 5 MG TAB IR FEED TUBE (17:59)
[2024-08-18 19:25] LABS: MRSA (PCR) DETECTED (NOT DETECTE)
[2024-08-18 19:32] LABS: Troponin I 0.171 ng/mL (0.000-0.034)
[2024-08-18] MEDS: ATORVASTATIN 40 MG TABLET FEED TUBE (21:00)
[2024-08-18] MEDS: METOPROLOL TARTRATE 25 MG TABLET FEED TUBE (21:00)
[2024-08-19] VITALS (28 sets, daily range): BP systolic 126–160; BP diastolic 48–98; PULSE 70–125; RESP 18–28; TEMP 36.3–37; O2SAT 96–100; BMI 36.0
[2024-08-19 00:15] LABS: Glucose Point of Care 288 mg/dl (65-105)
[2024-08-19] MEDS: CENTRAL LINE FLUSH 10 ML IV PUSH ×4 (00:44→21:50)
[2024-08-19] MEDS: metroNIDAZOLE 500 MG/ISO 100ML 500 MG/100 ML BAG 100 MG IVPB ×4 (00:54→17:16)
[2024-08-19] MEDS: INSULIN ASPART (*BKC) 100 UNITS/ML SUB-Q ×4 (00:58→17:43)
[2024-08-19] MEDS: oxyCODONE HCL (*CRX) 5 MG TAB IR FEED TUBE ×5 (01:00→20:51)
[2024-08-19] MEDS: IPRATROPIUM 0.5 MG/ALBUTEROL SULFATE 2.5 MG AMPUL.NEB 3 ML NEBULIZE ×4 (01:29→21:23)
[2024-08-19] MEDS: VANCOMYCIN 1,500 MG/NS 500 ML 1,500 MG/500 ML BAG 250 MG IVPB ×2 (02:01→13:13)
[2024-08-19 06:10] LABS: Glucose Point of Care 385 mg/dl (65-105)
[2024-08-19 08:09] LABS: Estimated CRCL calculation 85 ml/min; Estimated Glomerular Filt Rate > 60
--- NOTE | 2024-08-19 08:39 | PCRCNOTE ---
Addendum entered by Luisa Ma, [employer] 08/19/24 08:39: RN aware Original Note: Pt refused ABG'S at this time
[2024-08-19] MEDS: THERAPEUTIC MULTIVITAMINS/MINERALS TAB (*BKC) 1 TABLET PO (08:57)
[2024-08-19] MEDS: amLODIPine BESYLATE 5 MG TABLET FEED TUBE (08:57)
[2024-08-19] MEDS: CLOPIDOGREL BISULFATE 75 MG TABLET FEED TUBE (08:57)
[2024-08-19] MEDS: APIXABAN 5 MG TABLET FEED TUBE ×2 (08:57→17:05)
[2024-08-19] MEDS: ASCORBIC ACID 500 MG TABLET PO (08:57)
[2024-08-19] MEDS: ASPIRIN 81 MG CHEWABLE TABLET FEED TUBE (08:57)
[2024-08-19] MEDS: LANSOPRAZOLE ODT 30 MG TAB.RAP.DR FEED TUBE (08:57)
[2024-08-19] MEDS: METOPROLOL TARTRATE 25 MG TABLET FEED TUBE ×2 (08:58→20:51)
[2024-08-19] MEDS: MICONAZOLE NITRATE 2% CREAM 30 GM TUBE 1 APPLIC TOPICAL ×3 (09:00→17:16)
[2024-08-19] MEDS: FLUTICASONE PROPIONATE 0.05% NA SPR 16 GM BTL (*BKC) 2 SPRAY NASAL (09:00)
[2024-08-19 09:02] LABS: Albumin Level 3.4 g/dL (3.5-5.1); Alkaline Phosphatase 114 U/L (38-126); Anion Gap 11 mmol/L (4-12); Aspartate Amino Transferase 24 U/L (17-59); Bilirubin,Total 0.7 mg/dL (0.2-1.3); Blood Urea Nitrogen 35 mg/dL (9-20); Calcium 9.2 mg/dL (8.4-10.2); Carbon Dioxide 25 mmol/L (22-30); Chloride 99 mmol/L (98-107); Estimated CRCL calculation 85 ml/min; Estimated Glomerular Filt Rate > 60; Glucose 352 mg/dL (65-110); Sodium 135 mmol/L (137-145)
[2024-08-19] MEDS: INSULIN GLARGINE (*BKC) 100 UNITS/ML 25 UNITS SUB-Q (09:02)
[2024-08-19] MEDS: polyethylene glycoL 3350 17 GM POWD.PACK FEED TUBE (09:03)
[2024-08-19 09:06] LABS: Alanine Aminotransferase 29 U/L (6-50)
[2024-08-19 09:10] LABS: Hematocrit 25.4 % (42.0-52.0); Mean Corpuscular HGB Conc 31.5 g/dl (32-36); Mean Corpuscular Volume 98.4 fl (80-100); Mean Platelet Volume 10.9 fl (7.4-10.4); Platelet Count Result 203 k/mm3 (150-375); Red Blood Count 2.58 M/mm3 (4.6-6.20); Red Cell Distribution Width 19.7 % (11.5-14.5); White Blood Count 13.5 K/mm3 (4.5-10.0)
--- NOTE | 2024-08-19 10:00 | P.CONPL_ITS ---
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 The patient has been on vancomycin, levofloxacin, and metronidazole. His respiratory status has improved, and currently, the patient is on room air. He tested positive for MRSA. Other issues include a large decubitus ulcer, for which he has been on pain medications. The patient carries a diagnosis of COPD, although his pulmonary function testing four years ago did not clearly show obstructive airway disease. The patient has had left lower lobe collapse, which was also present during previous hospitalizations in June and July of this year. It is unclear whether this left lower lobe collapse is related to mucus plugging or due to trapped lung. Plan: Continue with the current antibiotic regimen, monitor arterial blood gases, and consider BiPAP support p.r.n. Repositioning the patient in bed, keeping the left side up, will be considered. We will continue with pulmonary toilet using nebulized short-acting bronchodilators q.i.d. and nebulized mucolytic agents twice daily along with incentive spirometry. We may consider bronchoscopy if the left lower lobe collapse persists. We will monitor the patient along with you. (2) Decubitus ulcer: Code(s): L89.90 - Pressure ulcer of unspecified site, unspecified stage Status: Acute (3) Hypercapnia: Code(s): R06.89 - Other abnormalities of breathing Status: Acute (4) Tracheal stenosis: Code(s): J39.8 - Other specified diseases of upper respiratory tract Status: Acute (5) Respiratory failure: Code(s): J96.90 - Respiratory failure, unspecified, unspecified whether with hypoxia or hypercapnia Status: Acute History of Present Illness History of Present Illness Consult date: 08/19/24 Chief complaint: Pneumonia, decubitus ulcer Narrative: This 64-year-old man was brought into the emergency room due to shortness of breath. This report is based on information found in the patient's electronic chart and after consulting with the patient's hospitalist. The patient himself is a poor historian. Reportedly, he fell out of bed and also experienced some shortness of breath. He was brought in by EMS. In the emergency room, he was unresponsive and briefly treated with BiPAP support. Initial arterial blood gases showed combined respiratory and metabolic acidosis with a pH of 7.21, pCO2 of 61, and bicarbonate at 24. Chest imaging studies, including a chest x-ray, revealed left lower lobe consolidation with possible pneumonia. The patient has been treated for healthcare-associated pneumonia as his MRSA PCR was positive. Currently, he is on room air. Upon questioning, he admitted to having some thick yellow phlegm which is new. He also has blood-streaked sputum. He has had a large deep sacral decubitus ulcer for which he has been on pain medications. 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 A review of his previous medical records shows that the patient carries a diagnosis of COPD. Pulmonary function testing done in January 2020 showed a nonspecific pattern with an FEV1 of 2.24 L and mildly reduced lung diffusion capacity. The patient has been hospitalized on multiple occasions over the last 5 years for complications related to his diabetes, coronary artery disease, congestive heart failure, or peripheral arterial disease. In February of this year, he was hospitalized with a STEMI and underwent stent placement. Chest imaging studies in February 2024 showed bilateral pleural effusions and a large pericardial effusion. Since March of this year, the patient has had left lower lobe collapse/possible pneumonia. In June of this year, he had extensive left lower lobe atelectasis. He has a history of multiple intubations for respiratory failure with a previous stay at [facility] for chronic tracheostomy. Last month, he was diagnosed with tracheal narrowing related to a previous endotracheal tube and was transferred to [facility]. It is unclear whether the patient underwent a procedure to dilate the tracheal narrowing. No records from hospitalizations at other facilities are available. Review of Systems Review of Systems: All systems reviewed & are unremarkable except as noted in HPI and below (HPI and below) [facility] Past Medical History Medical History ADHD (attention deficit hyperactivity disorder) Cellulitis of both feet Chronic kidney disease, stage 3 Baseline creatinine between 1.5 and 1.60. Chronic pain syndrome On long-term opiates. Coronary artery disease With history of stents. Degenerative disc disease Diabetic foot infection Gangrene of toe of right foot GERD (gastroesophageal reflux disease) History of DVT of lower extremity Hospital discharge follow-up Hyperlipidemia Hypertension Insulin dependent type 2 diabetes mellitus Myocardial infarction Osteoarthritis Peripheral arterial disease Status post right lower extremity revascularization per Dr. Altman. Shortness of breath on exertion Tobacco abuse Surgical History Surgical History H/O cardiac catheterization History of left-sided carotid endarterectomy History of revascularization procedure of lower extremity Right lower extremity angioplasty and stent per Dr. Hurt. Hx of right BKA Tracheostomy status Placed on 04/01/2024 due to prolonged intubation status post STEMI Family History Family History Father , age 91 CAD Acute myocardial infarction Mother , age 85 CVA Cerebrovascular accident Other Family history of arthritis Family history of cardiovascular disease Family history of chronic obstructive pulmonary disease Family history of mental disorder Hypertension Social History Social History Social History: The patient is currently at [facility]. He designates his cousin Jaskaran Carr as his surrogate decision-maker and he wishes to be a full code. 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 He smokes between 5 and 20 cigarettes and 20 cigarettes/day. No drug use. He has no children. He has never been . Smoking packs per day: 3 Smoking cigarettes per day: 60.0 Years smoked: 44 Smoking pack-years: 132.00 Smoking status: Former smoker Tobacco type: cigarettes Second hand tobacco smoke exposure: No Additional smoking assessment comments: patient stated i smoke one cigar every 6 hours Alcohol intake: never Substance use: former Substance use type: marijuana Other substance usage details: [facility] a [facility]; used for pain Last use: 03/16/2020 Do You Feel Safe in your Home?: Yes Lack of Transportation: YES Lack of Food: Never True Current Housing: I Do Not Have Housing Concerned About Future Housing: YES Difficulty Paying Gas/Electric Bills: YES Difficulty Paying for Meds: No Currently Unemployed: No Education: Bachelor's Degree Difficulty w/ Childcare or Family Care: No Gender identity (if verbalized by the patient): Male Spiritual care concerns: No Agree to blood products: Yes Meds Home Medications and Allergies Home Medications Medication Instructions Recorded Confirmed Type insulin syr/ndl U100 half liz 0.3 #100 ea 12/12/19 08/18/24 Rx mL 31 gauge x 5/16 (BD Insulin Syringe Ultra-Fine (half unit)) insulin syringe-needle U-100 1/2 #90 ea 03/05/20 08/18/24 History mL 31 gauge x 15/64 pen needle, diabetic 31 gauge x #30 ea 03/05/20 08/18/24 History 3/16 blood-glucose meter #1 ea 04/23/20 08/18/24 Rx sodium phosphates 19 gram-7 118 ml RECTAL ONCE PRN Constipation 03/04/24 08/18/24 History gram/118 mL enema (Fleet Enema) acetaminophen 325 mg tablet 650 mg feeding tube Q4H PRN pain 07/08/24 08/18/24 History or fever amlodipine 5 mg tablet 5 mg feeding tube DAILY 07/08/24 08/18/24 History atorvastatin 40 mg tablet 40 mg feeding tube HS 07/08/24 08/18/24 History bisacodyl 10 mg rectal suppository 10 mg RECTAL DAILY PRN Constipation 07/08/24 08/18/24 History clopidogrel 75 mg tablet 75 mg feeding tube QAM 07/08/24 08/18/24 History insulin glargine 100 unit/mL (3 25 unit subcut DAILY 07/08/24 08/18/24 History mL) subcutaneous pen magnesium citrate 296 ml PO DAILY PRN Constipation 07/08/24 08/18/24 History magnesium hydroxide 400 mg/5 mL 30 ml PO HS PRN Constipation 07/08/24 08/18/24 History oral suspension (Milk of Magnesia) metoprolol tartrate 50 mg tablet 25 mg feeding tube Q12HR 07/08/24 08/18/24 History apixaban 5 mg tablet 5 mg feeding tube BID 08/18/24 08/18/24 History ascorbic acid (vitamin C) 500 mg 500 mg feeding tube DAILY 08/18/24 08/18/24 History tablet aspirin 81 mg tablet,delayed 81 mg feeding tube DAILY 08/18/24 08/18/24 History release balsam jordi-castor oil topical 1 applic topical BID 08/18/24 08/18/24 History ointment (Venelex topical ointment) fluticasone propionate 50 2 spray intranasal DAILY 08/18/24 08/18/24 History mcg/actuation nasal spray,suspension insulin lispro 100 unit/mL See Rx Instructions .Route .COMPLEX 08/18/24 08/18/24 History subcutaneous solution (Humalog U-100 Insulin) ipratropium 0.5 mg-albuterol 3 mg 3 ml inhalation Q6H 08/18/24 08/18/24 History (2.5 mg base)/3 mL nebulization soln lansoprazole 30 mg delayed 30 mg PO DAILY 08/18/24 08/18/24 History release,disintegrating tablet (Prevacid SoluTab) meclizine 12.5 mg tablet 12.5 mg feeding tube TID PRN 08/18/24 08/18/24 History Dizziness miconazole nitrate 2 % topical 1 applic topical TID 08/18/24 08/18/24 History cream (Micatin) multivitamin with minerals-folic 1 tablet PO DAILY 08/18/24 08/18/24 History acid 0.4 mg tablet oxycodone 5 mg tablet 5 mg PO Q6H PRN Pain, Moderate 08/18/24 08/18/24 History polyethylene glycol 3350 17 gram 17 g feeding tube DAILY 08/18/24 08/18/24 Histo ry oral powder packet simethicone 40 mg/0.6 mL oral 40 mg feeding tube HS PRN 08/18/24 08/18/24 History drops,suspension Gastrointestinal Spasms Or Cramping tamsulosin 0.4 mg capsule (Flomax) 0.4 mg PO DAILY 08/18/24 08/18/24 History zinc sulfate 220 mg capsule 220 mg PO DAILY 08/18/24 08/18/24 History Allergies Allergy/AdvReac Type Severity Reaction Status Date / Time amoxicillin Allergy Severe shortness Verified 07/31/24 09:28 of breath Penicillins Allergy Severe Anaphylactic Verified 07/31/24 09:28 Shock trimethoprim Allergy Intermediate Unknown Verified 07/31/24 09:28 latex Allergy Unknown Unknown Verified 08/18/24 13:50 sulfamethoxazole Allergy Unknown Unknown Verified 08/18/24 13:51 cefuroxime Allergy Unknown Verified 07/31/24 09:28 cephalexin Allergy Unknown Verified 07/31/24 09:28 clindamycin Allergy Unknown Verified 07/31/24 09:28 gabapentin Allergy Unknown Verified 07/31/24 09:28 Vital Signs Vital Signs - 24 hr 08/18/24 10:35 08/18/24 11:15 08/18/24 11:59 Temperature 36.6 C 36.5 C Pulse Rate 103 H 104 H 103 H Respiratory Rate 20 16 27 H Blood Pressure 126/76 120/68 Pulse Oximetry 100 100 Oxygen Delivery BiPAP Fraction of Inspired Oxygen 08/18/24 12:49 08/18/24 13:05 08/18/24 14:24 Temperature 36.6 C Pulse Rate 95 100 Respiratory Rate 20 26 H Blood Pressure 141/69 H Pulse Oximetry 97 96 Oxygen Delivery BiPAP BiPAP Fraction of Inspired Oxygen 30 08/18/24 14:25 08/18/24 14:24 08/18/24 14:00 Temperature Pulse Rate 89 89 94 Respiratory Rate 18 18 Blood Pressure Pulse Oximetry 96 Oxygen Delivery BiPAP Fraction of Inspired Oxygen 08/18/24 16:00 08/18/24 16:00 08/18/24 18:00 Temperature 36.6 C Pulse Rate 94 90 96 Respiratory Rate 20 Blood Pressure 158/80 H Pulse Oximetry 99 Oxygen Delivery Fraction of Inspired Oxygen 08/18/24 20:00 08/18/24 20:10 08/18/24 20:11 Temperature 36.7 C Pulse Rate 85 84 Respiratory Rate 18 25 H Blood Pressure 125/82 Pulse Oximetry 100 99 Oxygen Delivery BiPAP Fraction of Inspired Oxygen 30 08/18/24 20:11 08/18/24 21:00 08/18/24 22:20 Temperature Pulse Rate 84 94 74 Respiratory Rate 23 H 20 Blood Pressure Pulse Oximetry 99 100 Oxygen Delivery BiPAP BiPAP Fraction of Inspired Oxygen 08/18/24 20:00 08/18/24 20:00 08/18/24 22:00 Temperature Pulse Rate 86 74 72 Respiratory Rate 20 Blood Pressure Pulse Oximetry 100 Oxygen Delivery BiPAP Fraction of Inspired Oxygen 30 08/19/24 00:00 08/19/24 00:00 08/19/24 01:30 Temperature 36.8 C Pulse Rate 77 78 77 Respiratory Rate 23 H 18 28 H Blood Pressure 132/86 Pulse Oximetry 99 99 Oxygen Delivery BiPAP Fraction of Inspired Oxygen 08/18/24 20:16 08/19/24 00:00 08/19/24 00:00 Temperature Pulse Rate 89 77 77 Respiratory Rate 25 H 28 H Blood Pressure Pulse Oximetry 99 Oxygen Delivery BiPAP Fraction of Inspired Oxygen 30 08/19/24 02:38 08/19/24 03:00 08/19/24 04:00 Temperature Pulse Rate 78 78 Respiratory Rate 28 H 28 H Blood Pressure Pulse Oximetry 99 99 Oxygen Delivery BiPAP BiPAP Fraction of Inspired Oxygen 30 08/19/24 04:00 08/19/24 05:15 08/19/24 04:00 Temperature 36.7 C Pulse Rate 78 81 80 Respiratory Rate 18 22 H Blood Pressure 160/64 H Pulse Oximetry 100 100 Oxygen Delivery BiPAP Fraction of Inspired Oxygen 08/19/24 06:00 08/19/24 06:55 08/19/24 06:55 Temperature Pulse Rate 81 82 82 Respiratory Rate 22 H 22 H Blood Pressure Pulse Oximetry 100 Oxygen Delivery BiPAP Fraction of Inspired Oxygen 08/19/24 07:05 08/19/24 08:00 08/19/24 08:58 Temperature 36.3 C L Pulse Rate 84 88 86 Respiratory Rate 22 H 22 H Blood Pressure 153/81 H Pulse Oximetry 98 Oxygen Delivery Fraction of Inspired Oxygen Exam Narrative: GENERAL APPEARANCE: Well developed, well nourished, alert and non cooperative, appears in mild respiratory distress while on room air HEENT: Sclerae anicteric and conjunctivae pink and moist. Extraocular movements were intact and pupils were equal. NECK: Supple. There was no thyroid enlargement, and no tenderness, or masses were felt. LUNGS: Decreased breath sounds left base posteriorly, no wheezing CARDIAC: There was a regular rate and rhythm without any murmurs, gallops, rubs. ABDOMEN: Soft and nontender with normal bowel sounds. There was no organomegaly. LYMPH NODES: No lymphadenopathy was appreciated in the neck. EXTREMITIES: No cyanosis, clubbing or edema left lower extremity; chronic stasis dermatitis left lower extremity. Right BKA. NEUROLOGIC: Alert and oriented x 3. Normal affect. Results Laboratory Findings 08/19/24 09:04 08/19/24 07:55 ABG, PT/INR, D-dimer: ABG ABG pH 7.472 (7.350-7.450) H 08/18/24 10:38 ABG pCO2 23.7 mmHg (35.0-45.0) L* 08/18/24 10:38 ABG pO2 136.7 mmHg (80.0-100.0) H 08/18/24 10:38 ABG O2 Saturation 98.9 % (95.0-100.0) 08/18/24 10:38 PT/INR, D-dimer PT 14.2 Seconds (11.1-14.7) 08/18/24 10:50 INR 1.1 08/18/24 10:50 Abnormal lab findings: Abnormal Labs 08/18/24 08/18/24 08/18/24 06:49 10:38 10:50 WBC 18.5 H RBC 2.92 L Hgb 9.0 L Hct 28.9 L MCHC 31.1 L RDW 19.5 H MPV 10.8 H Immature Gran % (Auto) 0.8 H Neut % (Auto) 96.1 H Lymph % (Auto) 1.9 L [place] % (Auto) 1.0 L Lymph # (Auto) 0.36 L Abs Immat Gran (auto) 0.14 H Absolute Neuts (auto) 17.8 H APTT 21.6 L ABG pH 7.213 L* 7.472 H ABG pCO2 60.9 H* 23.7 L* ABG pO2 109.4 H 136.7 H ABG HCO3 16.9 L ABG O2 Content 14.7 L 11.0 L Total Hemoglobin 10.7 L 7.7 L* Sodium 131 L Potassium 5.3 H Chloride 94 L BUN 39 H D Glucose 585 H* POC Capillary Glucose Hemoglobin A1c Alkaline Phosphatase 162 H Troponin I 0.130 H* NT-Pro-B Natriuret Pep 3050 H Albumin Urine Protein Urine Glucose (UA) Urine Ketones Nasal MRSA (PCR) 08/18/24 08/18/24 08/18/24 13:38 14:02 14:06 WBC RBC Hgb Hct MCHC RDW MPV Immature Gran % (Auto) Neut % (Auto) Lymph % (Auto) [place] % (Auto) Lymph # (Auto) Abs Immat Gran (auto) Absolute Neuts (auto) APTT ABG pH ABG pCO2 ABG pO2 ABG HCO3 ABG O2 Content Total Hemoglobin Sodium Potassium Chloride BUN Glucose POC Capillary Glucose 485 H Hemoglobin A1c 8.2 H Alkaline Phosphatase Troponin I 0.186 H* D NT-Pro-B Natriuret Pep Albumin Urine Protein Urine Glucose (UA) Urine Ketones Nasal MRSA (PCR) 08/18/24 08/18/24 08/18/24 16:58 17:34 18:55 WBC RBC Hgb Hct MCHC RDW MPV Immature Gran % (Auto) Neut % (Auto) Lymph % (Auto) [place] % (Auto) Lymph # (Auto) Abs Immat Gran (auto) Absolute Neuts (auto) APTT ABG pH ABG pCO2 ABG pO2 ABG HCO3 ABG O2 Content Total Hemoglobin Sodium Potassium Chloride BUN Glucose POC Capillary Glucose 475 H Hemoglobin A1c Alkaline Phosphatase Troponin I 0.171 H* NT-Pro-B Natriuret Pep Albumin Urine Protein 1+ H Urine Glucose (UA) 3+ H Urine Ketones 1+ H Nasal MRSA (PCR) Detected A* 08/19/24 08/19/24 08/19/24 00:10 06:06 07:55 WBC RBC Hgb Hct MCHC RDW MPV Immature Gran % (Auto) Neut % (Auto) Lymph % (Auto) [place] % (Auto) Lymph # (Auto) Abs Immat Gran (auto) Absolute Neuts (auto) APTT ABG pH ABG pCO2 ABG pO2 ABG HCO3 ABG O2 Content Total Hemoglobin Sodium 135 L Potassium Chloride BUN 35 H Glucose 352 H POC Capillary Glucose 288 H 385 H Hemoglobin A1c Alkaline Phosphatase Troponin I NT-Pro-B Natriuret Pep Albumin 3.4 L Urine Protein Urine Glucose (UA) Urine Ketones Nasal MRSA (PCR) 08/19/24 09:04 WBC 13.5 H RBC 2.58 L Hgb 8.0 L Hct 25.4 L MCHC 31.5 L RDW 19.7 H MPV 10.9 H Immature Gran % (Auto) Neut % (Auto) Lymph % (Auto) [place] % (Auto) Lymph # (Auto) Abs Immat Gran (auto) Absolute Neuts (auto) APTT ABG pH ABG pCO2 ABG pO2 ABG HCO3 ABG O2 Content Total Hemoglobin Sodium Potassium Chloride BUN Glucose POC Capillary Glucose Hemoglobin A1c Alkaline Phosphatase Troponin I NT-Pro-B Natriuret Pep Albumin Urine Protein Urine Glucose (UA) Urine Ketones Nasal MRSA (PCR)
--- NOTE | 2024-08-19 11:20 | PC.NURSE ---
Notified Dr Kumari of patients continued complaints of pain. MD gave order to change frequency to q4h. Order read back and verified.
[2024-08-19 11:40] LABS: Glucose Point of Care 326 mg/dl (65-105)
--- NOTE | 2024-08-19 13:43 | PCSTNOTE ---
Therapist spoke with Dr. Kumari who requested MBS and YUNIOR Barry. Asha indicated that she feels patient is not ready to participate in a MBS this afternoon and it will be deferred with updated orders tomorrow morning.
--- NOTE | 2024-08-19 14:03 | PM.IMPN ---
Progress Note: A&P Assessment and Plan (1) Pneumonia: Code(s): J18.9 - Pneumonia, unspecified organism Status: Acute (2) Hypercapnia: Code(s): R06.89 - Other abnormalities of breathing Status: Acute (3) Hyperglycemia: Code(s): R73.9 - Hyperglycemia, unspecified Status: Acute (4) Elevated troponin: Code(s): R79.89 - Other specified abnormal findings of blood chemistry Status: Acute (5) Paroxysmal A-fib: Code(s): I48.0 - Paroxysmal atrial fibrillation Status: Acute (6) Tracheal stenosis: Code(s): J39.8 - Other specified diseases of upper respiratory tract Status: Acute (7) Decubitus ulcer: Code(s): L89.90 - Pressure ulcer of unspecified site, unspecified stage Status: Acute (8) COPD exacerbation: Code(s): J44.1 - Chronic obstructive pulmonary disease with (acute) exacerbation Status: Acute (9) Respiratory failure: Code(s): J96.90 - Respiratory failure, unspecified, unspecified whether with hypoxia or hypercapnia Status: Acute Plan This is a 64-year-old male presents emergency department for evaluation of worsening shortness of breath. On arrival to the ED he was afebrile with stable vitals except for tachypnea. He was initially on non-rebreather mask. Influenza RSV COVID swab was negative. ABG showed 7.21/60/109/24. He was placed on BiPAP Placed on non-rebreather mask. Repeat ABG after BiPAP was 7.47/23/136/16. EKG showed sinus tachycardia with occasional premature ectopic complexes nonspecific ST-T [place]. [place] [address] hemoglobin of 9 hematocrit of 29 platelet of 233. Potassium was 5.3 creatinine was 0.8 blood sugar was 585 BNP 3050. Troponin was 0.130. Chest x-ray showed right PICC line at mid SVC elevation of the left hemidiaphragm with likely combination of atelectasis and pneumonia in the left lower lung zone. CT chest abdomen pelvis without contrast showed consultation in the left lower lobe and lingula likely representing combination of atelectasis and pneumonia with additional more subtle pneumonia in the right middle and lower lungs. Cardiomegaly. Scattered tiny parenchymal calcification at the pancreatic likely sequelae of chronic pancreatitis. Deep sacral decubitus ulcer. Nonspecific stranding in the subcutaneous fat at the right pectoral region. Blood cultures has been obtained. Nasal MRSA swab was positive. Patient is started on vancomycin Levaquin and Flagyl. Blood culture 1 of them turned positive for Gram-positive cocci in clusters. Will await finalization already on vancomycin. Acute on chronic hypercapnic respiratory failure needing BiPAP support on admission. Stopped and will use p.r.n.. Pulmonary on board. Multifocal pneumonia urine antigens ordered. 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 Hold off on oral diet until speech evaluation. Will plan for MBS. DVT prophylaxis Code status full code Subjective Date/time seen: 08/19/24 14:03 Interval history: Patient was taken off BiPAP this a.m.. Wants to see a speech therapist. Still has some shortness of breath with exertion. No other complaints. Review of Systems Review of Systems: All systems reviewed & are unremarkable except as noted in HPI and below Exam Narrative: GENERAL: Ill-appearing, well-nourished, and in no acute distress. Awake and alert and conversant HEAD: Normocephalic, atraumatic. EYES: PERRLA and EOMI. ENT: Nares clear, no rhinorrhea or epistaxis. Mucous membranes moist. NECK: Supple. CHEST: Coarse breath sound bilaterally no wheezing No respiratory distress. HEART: Regular rate and rhythm. No murmur heard. Normal peripheral pulses. ABDOMEN: Soft, nontender, nondistended, normal active bowel sounds. G-tube in place EXTREMITIES: Normal range of motion bilateral below-knee. No edema. SKIN: Warm, dry, no rash. NEURO: No focal deficits. Alert and awake and conversant PSYCH: Normal mood Objective Data Vital Signs Vital Signs: Vital Signs - 24 hr 08/18/24 14:24 08/18/24 14:25 08/18/24 14:24 Temperature Pulse Rate 89 89 Respiratory Rate 18 18 Blood Pressure Pulse Oximetry 96 96 Oxygen Delivery BiPAP BiPAP Fraction of Inspired Oxygen 30 08/18/24 16:00 08/18/24 16:00 08/18/24 18:00 Temperature 97.8 F Pulse Rate 94 90 96 Respiratory Rate 20 Blood Pressure 158/80 H Pulse Oximetry 99 Oxygen Delivery Fraction of Inspired Oxygen 08/18/24 20:00 08/18/24 20:10 08/18/24 20:11 Temperature 98.1 F Pulse Rate 85 84 Respiratory Rate 18 25 H Blood Pressure 125/82 Pulse Oximetry 100 99 Oxygen Delivery BiPAP Fraction of Inspired Oxygen 30 08/18/24 20:11 08/18/24 21:00 08/18/24 22:20 Temperature Pulse Rate 84 94 74 Respiratory Rate 23 H 20 Blood Pressure Pulse Oximetry 99 100 Oxygen Delivery BiPAP BiPAP Fraction of Inspired Oxygen 08/18/24 20:00 08/18/24 20:00 08/18/24 22:00 Temperature Pulse Rate 86 74 72 Respiratory Rate 20 Blood Pressure Pulse Oximetry 100 Oxygen Delivery BiPAP Fraction of Inspired Oxygen 30 08/19/24 00:00 08/19/24 00:00 08/19/24 01:30 Temperature 98.3 F Pulse Rate 77 78 77 Respiratory Rate 23 H 18 28 H Blood Pressure 132/86 Pulse Oximetry 99 99 Oxygen Delivery BiPAP Fraction of Inspired Oxygen 08/18/24 20:16 08/19/24 00:00 08/19/24 00:00 Temperature Pulse Rate 89 77 77 Respiratory Rate 25 H 28 H Blood Pressure Pulse Oximetry 99 Oxygen Delivery BiPAP Fraction of Inspired Oxygen 30 08/19/24 02:38 08/19/24 03:00 08/19/24 04:00 Temperature Pulse Rate 78 78 Respiratory Rate 28 H 28 H Blood Pressure Pulse Oximetry 99 99 Oxygen Delivery BiPAP BiPAP Fraction of Inspired Oxygen 30 08/19/24 04:00 08/19/24 05:15 08/19/24 04:00 Temperature 98.1 F Pulse Rate 78 81 80 Respiratory Rate 18 22 H Blood Pressure 160/64 H Pulse Oximetry 100 100 Oxygen Delivery BiPAP Fraction of Inspired Oxygen 08/19/24 06:00 08/19/24 06:55 08/19/24 06:55 Temperature Pulse Rate 81 82 82 Respiratory Rate 22 H 22 H Blood Pressure Pulse Oximetry 100 Oxygen Delivery BiPAP Fraction of Inspired Oxygen 08/19/24 07:05 08/19/24 08:00 08/19/24 08:58 Temperature 97.4 F L Pulse Rate 84 88 86 Respiratory Rate 22 H 22 H Blood Pressure 153/81 H Pulse Oximetry 98 Oxygen Delivery Fraction of Inspired Oxygen 08/19/24 08:00 08/19/24 10:00 08/19/24 11:43 Temperature 98.1 F Pulse Rate 89 75 70 Respiratory Rate Blood Pressure 126/48 L Pulse Oximetry 98 Oxygen Delivery Fraction of Inspired Oxygen 08/19/24 12:55 08/19/24 13:05 08/19/24 09:00 Temperature Pulse Rate 86 85 87 Respiratory Rate 20 20 22 H Blood Pressure Pulse Oximetry 97 Oxygen Delivery Room Air Fraction of Inspired Oxygen Intake/Output Intake/Output: Intake & Output 08/16/24 08/17/24 08/18/24 08/19/24 23:59 23:59 23:59 23:59 Intake Total 250 700 Output Total 1000 500 Balance -750 200 Meds/Results Medications: Active Medications Generic Name Dose Route Start Last Admin Trade Name Freq PRN Reason Stop Dose Admin Acetaminophen 650 mg 08/18/24 14:47 Acetaminophen Elixir 325 Mg/10.15 Ml Udc FEED TUBE Q4H PRN pain or fever Acetylcysteine 200 mg 08/19/24 21:00 Acetylcysteine 20% Inhal Soln 800 Mg/4 Ml Vial INHALATION Q12HR RHONDA Albuterol/Ipratropium 3 ml 08/18/24 20:00 08/19/24 12:58 Ipratropium 0.5 Mg/Albuterol Sulfate 2.5 Mg Ampul.Neb 3 Ml NEBULIZE 3 ml Q6HRT RHONDA Administration Amlodipine Besylate 5 mg 08/19/24 09:00 08/19/24 08:57 Amlodipine Besylate 5 Mg Tablet FEED TUBE 5 mg DAILY RHONDA Administration Apixaban 5 mg 08/18/24 17:00 08/19/24 08:57 Apixaban 5 Mg Tablet FEED TUBE 5 mg BID RHONDA Administration Ascorbic Acid 500 mg 08/19/24 09:00 08/19/24 08:57 Ascorbic Acid 500 Mg Tablet PO 500 mg DAILY RHONDA Administration Aspirin 81 mg 08/19/24 08:00 08/19/24 08:57 Aspirin 81 Mg Chewable Tablet FEED TUBE 81 mg DAILY@0800 RHONDA Administration Atorvastatin Calcium 40 mg 08/18/24 21:00 08/18/24 21:00 Atorvastatin 40 Mg Tablet FEED TUBE 40 mg HS RHONDA Administration Bisacodyl 10 mg 08/18/24 14:33 Bisacodyl 10 Mg Suppository RECTAL DAILY PRN Constipation Clopidogrel Bisulfate 75 mg 08/19/24 09:00 08/19/24 08:57 Clopidogrel Bisulfate 75 Mg Tablet FEED TUBE 75 mg QAM RHONDA Administration Dextrose 12.5 gm 08/18/24 14:17 Dextrose 50% 25 Gm/50 Ml Syringe IV PUSH PRN PRN Hypoglycemia Protocol Fluticasone Propionate 2 spray 08/19/24 09:00 08/19/24 09:00 Fluticasone Propionate 0.05% Na Spr 16 Gm Btl (*Bkc) NASAL 2 spray DAILY RHONDA Administration Glucagon 1 mg 08/18/24 14:17 Glucagon For Inj 1 Mg Vial IM PRN PRN Hypoglycemia Protocol Glucose 15 gm 08/18/24 14:17 Glucose Oral Gel 15 Gm Of Glucse In 37.5 Gm Tube PO PRN PRN Hypoglycemia Protocol Metronidazole 500 mg in 100 mls @ 100 mls/hr 08/18/24 18:00 08/19/24 11:52 Flagyl 500 Mg/Iso Soln 100 Ml IVPB 100 mls/hr Q6H RHONDA Administration Vancomycin HCl 1,500 mg in 500 mls @ 250 mls/hr 08/19/24 01:00 08/19/24 13:13 Vancomycin 1,500 Mg/Ns 500 Ml IVPB 250 mls/hr Q12H RHONDA Administration Dextrose 1,000 mls @ 100 mls/hr 08/18/24 14:17 Dextrose 5% 1,000 Ml IVPB PRN PRN Hypoglycemia Protocol Levofloxacin/Dextrose 750 mg in 150 mls @ 100 mls/hr 08/18/24 17:00 08/18/24 18:35 Levaquin 750 Mg/D5w 150 Ml IVPB Infused Q24H RHONDA Infusion Insulin Aspart 4 - 8 units 08/18/24 18:00 08/19/24 11:53 Insulin Aspart (*Bkc) 100 Units/Ml SUB-Q 6 units Q6HR RHONDA Administration Protocol Insulin Glargine 30 units 08/18/24 21:00 08/18/24 17:24 Insulin Glargine (*Bkc) 100 Units/Ml 0.25 units/kg (30 units) 30 units SUB-Q Administration HS [facility] Insulin Glargine 25 units 08/19/24 09:00 08/19/24 09:02 Insulin Glargine (*Bkc) 100 Units/Ml SUB-Q 25 units DAILY RHONDA Administration Lansoprazole 30 mg 08/19/24 09:00 08/19/24 08:57 Lansoprazole Odt 30 Mg Tab.Rap.Dr FEED TUBE 30 mg DAILY RHONDA Administration Magnesium Citrate 296 ml 08/18/24 15:20 Magnesium Citrate 300 Ml Btl PO DAILY PRN Constipation Magnesium Hydroxide 30 ml 08/18/24 15:20 Magnesium Hydroxide Susp 30 Ml Udc PO HS PRN Constipation Meclizine HCl 12.5 mg 08/18/24 15:20 Meclizine Hcl 12.5 Mg Tablet FEED TUBE TID PRN Dizziness Metoprolol Tartrate 25 mg 08/18/24 21:00 08/19/24 08:58 Metoprolol Tartrate 25 Mg Tablet FEED TUBE 25 mg Q12HR [facility] Administration Miconazole Nitrate 1 applic 08/18/24 17:00 08/19/24 13:13 Miconazole Nitrate 2% Cream 30 Gm Tube TOPICAL 1 applic TID RHONDA Administration Miscellaneous Information 1 each 08/19/24 00:01 Order Clarification XX 09/18/24 00:00 CLARIFY [facility] Multivitamins/Calcium 1 tablet 08/19/24 09:00 08/19/24 08:57 Therapeutic Multivitamins/Minerals Tab (*Bkc) PO 1 tablet DAILY [facility] Administration Non-Formulary Medication 118 ml 08/18/24 15:20 Sodium Phosphates [Fleet Enema] RECTAL ONCE PRN Constipation Oxycodone HCl 5 mg 08/19/24 11:20 08/19/24 13:04 Oxycodone Hcl (*Crx) 5 Mg Tab Ir FEED TUBE 5 mg Q4H PRN Administration Pain, Moderate Polyethylene Glycol 17 gm 08/19/24 09:00 08/19/24 09:03 Polyethylene Glycol 3350 17 Gm Powd.Pack FEED TUBE 17 gm DAILY [facility] Administration Simethicone 0.6 ml 08/18/24 15:20 Simethicone Oral Suspension 20 Mg/0.3 Ml 30 Ml Bottle FEED TUBE HS PRN GI SPASMS/CRAMPS Sodium Chloride 20 ml 08/18/24 09:43 Central Line Flush IV PUSH PRN PRN after blood draws Sodium Chloride 10 ml 08/18/24 09:43 Central Line Flush IV PUSH PRN PRN with TPN bag changes Sodium Chloride 10 ml 08/18/24 14:00 08/19/24 13:15 Central Line Flush IV PUSH 10 ml Q8HR RHONDA Administration Radiology Results: ITS Impressions Chest/Abdomen/Pelvis CT 08/18/24 09:30 IMPRESSION: 1. Consolidation in the left lower lobe and lingula likely representing combination of atelectasis and pneumonia with additional more subtle pneumonia in the right middle and lower lobes. 2. Cardiomegaly. 3. Scattered tiny parenchymal calcifications at the pancreas likely sequela of chronic pancreatitis. 4. Deep sacral decubitus ulcer. 5. Nonspecific stranding in the subcutaneous fat at the right pectoral region. Correlate clinically for either recent contusion or cellulitis. Chest X-Ray 08/18/24 10:05 IMPRESSION: 1. Right PICC line tip at the midsuperior vena cava. 2. Elevation of the left hemidiaphragm with likely combination of atelectasis and pneumonia in the left lower lung zone. Labs Labs: Laboratory Results - last 24 hr 08/18/24 08/18/24 08/18/24 14:02 14:06 16:58 WBC RBC Hgb Hct MCV MCH MCHC RDW Plt Count MPV Sodium Potassium Chloride Carbon Dioxide Anion Gap BUN Creatinine Estim Creat Clear Calc Estimated GFR Glucose POC Capillary Glucose 475 H Hemoglobin A1c 8.2 H Calcium Total Bilirubin AST ALT Alkaline Phosphatase Troponin I 0.186 H* D Total Protein Albumin Urine Color Urine Appearance Urine pH Ur Specific [place] Urine Protein Urine Glucose (UA) Urine Ketones Ur Blood (Man) Urine Nitrate Urine Bilirubin Urine Urobilinogen Leukocyte Esterase Rfl Urine RBC Urine WBC Ur Squamous Epith Cells Urine Bacteria Urine Casts Nasal MRSA (PCR) 08/18/24 08/18/24 08/19/24 17:34 18:55 00:10 WBC RBC Hgb Hct MCV MCH MCHC RDW Plt Count MPV Sodium Potassium Chloride Carbon Dioxide Anion Gap BUN Creatinine Estim Creat Clear Calc Estimated GFR Glucose POC Capillary Glucose 288 H Hemoglobin A1c Calcium Total Bilirubin AST ALT Alkaline Phosphatase Troponin I 0.171 H* Total Protein Albumin Urine Color Yellow Urine Appearance Clear Urine pH 5.0 Ur Specific [place] 1.025 Urine Protein 1+ H Urine Glucose (UA) 3+ H Urine Ketones 1+ H Ur Blood (Man) Negative Urine Nitrate Negative Urine Bilirubin Negative Urine Urobilinogen 0.2 Leukocyte Esterase Rfl Negative Urine RBC 0-2 Urine WBC 0-5 Ur Squamous Epith Cells None seen Urine Bacteria None seen Urine Casts 0-2 Nasal MRSA (PCR) Detected A* 08/19/24 08/19/24 08/19/24 06:06 07:55 07:55 WBC RBC Hgb Hct MCV MCH MCHC RDW Plt Count MPV Sodium 135 L Potassium 4.0 Chloride 99 Carbon Dioxide 25 Anion Gap 11 BUN 35 H Creatinine 0.80 0.80 Estim Creat Clear Calc 85 Estimated GFR Glucose POC Capillary Glucose 385 H Hemoglobin A1c Calcium Total Bilirubin AST ALT Alkaline Phosphatase Troponin I Total Protein Albumin Urine Color Urine Appearance Urine pH Ur Specific [place] Urine Protein Urine Glucose (UA) Urine Ketones Ur Blood (Man) Urine Nitrate Urine Bilirubin Urine Urobilinogen Leukocyte Esterase Rfl Urine RBC Urine WBC Ur Squamous Epith Cells Urine Bacteria Urine Casts Nasal MRSA (PCR) 08/19/24 08/19/24 08/19/24 07:55 07:55 09:04 WBC 13.5 H RBC 2.58 L Hgb 8.0 L Hct 25.4 L MCV 98.4 MCH 31.0 MCHC 31.5 L RDW 19.7 H Plt Count 203 MPV 10.9 H Sodium Potassium Chloride Carbon Dioxide Anion Gap BUN Creatinine Estim Creat Clear Calc 85 Estimated GFR > 60 > 60 Glucose 352 H POC Capillary Glucose Hemoglobin A1c Calcium 9.2 Total Bilirubin 0.7 AST 24 ALT 29 Alkaline Phosphatase 114 Troponin I Total Protein 7.0 Albumin 3.4 L Urine Color Urine Appearance Urine pH Ur Specific [place] Urine Protein Urine Glucose (UA) Urine Ketones Ur Blood (Man) Urine Nitrate Urine Bilirubin Urine Urobilinogen Leukocyte Esterase Rfl Urine RBC Urine WBC Ur Squamous Epith Cells Urine Bacteria Urine Casts Nasal MRSA (PCR) 08/19/24 11:37 WBC RBC Hgb Hct MCV MCH MCHC RDW Plt Count MPV Sodium Potassium Chloride Carbon Dioxide Anion Gap BUN Creatinine Estim Creat Clear Calc Estimated GFR Glucose POC Capillary Glucose 326 H Hemoglobin A1c Calcium Total Bilirubin AST ALT Alkaline Phosphatase Troponin I Total Protein Albumin Urine Color Urine Appearance Urine pH Ur Specific [place] Urine Protein Urine Glucose (UA) Urine Ketones Ur Blood (Man) Urine Nitrate Urine Bilirubin Urine Urobilinogen Leukocyte Esterase Rfl Urine RBC Urine WBC Ur Squamous Epith Cells Urine Bacteria Urine Casts Nasal MRSA (PCR)
[2024-08-19] MEDS: levoFLOXacin 750 MG/D5W 150 ML 750 MG/150 ML BAG 150 MG IVPB (17:15)
[2024-08-19 17:38] LABS: Glucose Point of Care 310 mg/dl (65-105)
[2024-08-19] MEDS: ATORVASTATIN 40 MG TABLET FEED TUBE (20:51)
[2024-08-19] MEDS: ACETYLCYSTEINE 20% INHAL SOLN 800 MG/4 ML VIAL 200 MG INHALATION (21:23)
[2024-08-19] MEDS: INSULIN GLARGINE (*BKC) 100 UNITS/ML 30 UNITS SUB-Q (21:56)
[2024-08-19 22:12] LABS: Glucose Point of Care 272 mg/dl (65-105)
[2024-08-20] VITALS (28 sets, daily range): BP systolic 115–159; BP diastolic 57–99; PULSE 68–102; RESP 20–29; TEMP 36.3–37.1; O2SAT 96–100
[2024-08-20 00:44] LABS: Glucose Point of Care 263 mg/dl (65-105)
[2024-08-20] MEDS: metroNIDAZOLE 500 MG/ISO 100ML 500 MG/100 ML BAG 100 MG IVPB ×5 (00:46→23:52)
[2024-08-20] MEDS: INSULIN ASPART (*BKC) 100 UNITS/ML SUB-Q ×4 (00:47→18:07)
[2024-08-20] MEDS: oxyCODONE HCL (*CRX) 5 MG TAB IR FEED TUBE ×5 (02:16→20:55)
[2024-08-20 02:18] LABS: Basophils Percent Auto 0.2 % (0.2-1.2); Eosinophils Percent Auto 0.2 % (0-4.4); Hematocrit 28.7 % (42.0-52.0); Hemoglobin 8.4 g/dL (14.0-18.0); Immature Granulocyte Absolute 0.06 K/mm3 (0.00-0.031); Immature Granulocyte Percent A 0.5 % (0-0.5); Lymphocytes Absolute Auto 1.31 K/mm3 (0.9-3.2); Mean Corpuscular HGB Conc 29.3 g/dl (32-36); Mean Corpuscular Hemoglobin 30.5 pg (26-34); Mean Corpuscular Volume 104.4 fl (80-100); Monocytes Absolute Auto 0.6 K/mm3 (0.1-0.6); Monocytes Percent Auto 4.9 % (2.6-8.5); Neutrophils Absolute Auto 9.9 K/mm3 (1.3-6.7); Neutrophils Percent Auto 83.2 % (45.5-73.1); Platelet Count Result 207 k/mm3 (150-375); Red Blood Count 2.75 M/mm3 (4.6-6.20); Red Cell Distribution Width 20.1 % (11.5-14.5); White Blood Count 11.9 K/mm3 (4.5-10.0)
[2024-08-20 02:30] LABS: Alanine Aminotransferase 21 U/L (6-50); Albumin Level 3.3 g/dL (3.5-5.1); Alkaline Phosphatase 105 U/L (38-126); Anion Gap 11 mmol/L (4-12); Anisocytosis 1+; Aspartate Amino Transferase 21 U/L (17-59); Bilirubin,Total 0.8 mg/dL (0.2-1.3); Blood Urea Nitrogen 33 mg/dL (9-20); Carbon Dioxide 20 mmol/L (22-30); Chloride 102 mmol/L (98-107); Estimated CRCL calculation 110 ml/min; Estimated Glomerular Filt Rate > 60; Glucose 314 mg/dL (65-110); Magnesium 1.6 mg/dL (1.6-2.3); Platelet Estimate Adequate (Adequate); Potassium 4.3 mmol/L (3.4-5.0); Schistocytes None Seen; Sodium 133 mmol/L (137-145)
[2024-08-20] MEDS: IPRATROPIUM 0.5 MG/ALBUTEROL SULFATE 2.5 MG AMPUL.NEB 3 ML NEBULIZE ×4 (02:57→20:17)
[2024-08-20 04:06] LABS: Vancomycin Trough 27.3 ug/mL (10.0-20.0)
[2024-08-20 05:37] LABS: Glucose Point of Care 308 mg/dl (65-105)
[2024-08-20] MEDS: CENTRAL LINE FLUSH 10 ML IV PUSH ×2 (05:38→20:57)
[2024-08-20] MEDS: ACETYLCYSTEINE 20% INHAL SOLN 800 MG/4 ML VIAL 200 MG INHALATION (07:57)
[2024-08-20] MEDS: polyethylene glycoL 3350 17 GM POWD.PACK FEED TUBE (08:28)
[2024-08-20] MEDS: VANCOMYCIN 1,500 MG/NS 500 ML 1,500 MG/500 ML BAG 250 MG IVPB (08:29)
[2024-08-20] MEDS: METOPROLOL TARTRATE 25 MG TABLET FEED TUBE ×2 (08:30→20:56)
[2024-08-20] MEDS: ASCORBIC ACID 500 MG TABLET PO (08:30)
[2024-08-20] MEDS: CLOPIDOGREL BISULFATE 75 MG TABLET FEED TUBE (08:30)
[2024-08-20] MEDS: THERAPEUTIC MULTIVITAMINS/MINERALS TAB (*BKC) 1 TABLET PO (08:30)
[2024-08-20] MEDS: APIXABAN 5 MG TABLET FEED TUBE ×2 (08:30→17:11)
[2024-08-20] MEDS: FLUTICASONE PROPIONATE 0.05% NA SPR 16 GM BTL (*BKC) 2 SPRAY NASAL (08:31)
[2024-08-20] MEDS: amLODIPine BESYLATE 5 MG TABLET FEED TUBE (08:31)
[2024-08-20] MEDS: LANSOPRAZOLE ODT 30 MG TAB.RAP.DR FEED TUBE (08:31)
[2024-08-20] MEDS: ASPIRIN 81 MG CHEWABLE TABLET FEED TUBE (08:31)
[2024-08-20] MEDS: MICONAZOLE NITRATE 2% CREAM 30 GM TUBE 1 APPLIC TOPICAL ×3 (08:32→17:12)
[2024-08-20] MEDS: INSULIN GLARGINE (*BKC) 100 UNITS/ML 25 UNITS SUB-Q (08:44)
--- NOTE | 2024-08-20 09:06 | P.PNPL_ITS ---
Progress Note: A&P Assessment and Plan (1) Acute respiratory failure: Qualifiers: Respiratory failure complication: unspecified whether with hypoxia or hypercapnia Qualified Code(s): J96.00 - Acute respiratory failure, unspecified whether with hypoxia or hypercapnia Code(s): J96.00 - Acute respiratory failure, unspecified whether with hypoxia or hypercapnia Status: Acute Assessment and Plan: This 64-year-old man with multiple medical problems, including diabetes mellitus, coronary artery disease, peripheral artery disease, chronic left lung atelectasis, and frequent hospitalizations for respiratory failure with previous intubation and 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 The patient has been on vancomycin, levofloxacin, and metronidazole. His respiratory status has improved, and currently, the patient is on room air. He tested positive for MRSA. Other issues include a large decubitus ulcer, for which he has been on pain medications. The patient carries a diagnosis of COPD, although his pulmonary function testing four years ago did not clearly show obstructive airway disease. The patient has had left lower lobe collapse, which was also present during previous hospitalizations in June and July of this year. It is unclear whether this left lower lobe collapse is related to mucus plugging or due to trapped lung. Possible left diaphragm paralysis may also contribute to chronic left lower lobe atelectasis. Respiratory status seems to be improving in the sense that the patient has less sputum production, remains on room air and white cell count is trending down. Plan: Continue with the current antibiotic regimen. Consider BiPAP support as needed. Reposition the patient in bed, keeping the left side up, as necessary. Continue pulmonary toilet using nebulized short-acting bronchodilators four times daily and nebulized mucolytic agents twice daily, along with incentive spirometry. I discussed the option of bronchoscopy with the patient, but the patient expressed reluctance to undergo the procedure at this time. Repeat a chest X-ray in the morning. (2) Pneumonia: Code(s): J18.9 - Pneumonia, unspecified organism Status: Acute (3) Pulmonary atelectasis: Code(s): J98.11 - Atelectasis Status: Acute (4) Tracheal stenosis: Code(s): J39.8 - Other specified diseases of upper respiratory tract Status: Acute Subjective Date/time seen: 08/20/24 09:06 Interval history: Patient reports no new respiratory symptoms. He stated that his breathing seems to be getting better. He has less sputum. Remains on room air Review of Systems Review of Systems: All systems reviewed & are unremarkable except as noted in HPI and below (HPI and below) Exam Narrative: GENERAL APPEARANCE: Well developed, well nourished, alert and non cooperative, appears in mild respiratory distress while on room air HEENT: Sclerae anicteric and conjunctivae pink and moist. Extraocular movements were intact and pupils were equal. NECK: Supple. There was no thyroid enlargement, and no tenderness, or masses were felt. LUNGS: Decreased breath sounds left base posteriorly, no wheezing CARDIAC: There was a regular rate and rhythm without any murmurs, gallops, rubs. ABDOMEN: Soft and nontender with normal bowel sounds. There was no organomegaly. LYMPH NODES: No lymphadenopathy was appreciated in the neck. EXTREMITIES: No cyanosis, clubbing or edema left lower extremity; chronic stasis dermatitis left lower extremity. Right BKA. NEUROLOGIC: Alert and oriented x 3. Normal affect. Objective Data Vital Signs Vital Signs: Vital Signs - 24 hr 08/19/24 10:00 08/19/24 11:43 08/19/24 12:55 Temperature 36.7 C Pulse Rate 75 70 86 Respiratory Rate 20 Blood Pressure 126/48 L Pulse Oximetry 98 Oxygen Delivery Fraction of Inspired Oxygen 08/19/24 13:05 08/19/24 12:00 08/19/24 14:00 Temperature Pulse Rate 85 72 125 H Respiratory Rate 20 Blood Pressure Pulse Oximetry Oxygen Delivery Fraction of Inspired Oxygen 08/19/24 16:00 08/19/24 18:00 08/19/24 17:30 Temperature 36.8 C Pulse Rate 74 79 77 Respiratory Rate 20 Blood Pressure 132/98 H Pulse Oximetry 96 Oxygen Delivery Fraction of Inspired Oxygen 08/19/24 20:17 08/19/24 20:51 08/19/24 21:27 Temperature 37.0 C Pulse Rate 85 83 79 Respiratory Rate 20 20 Blood Pressure 128/62 Pulse Oximetry 97 Oxygen Delivery Fraction of Inspired Oxygen 08/19/24 20:00 08/19/24 20:00 08/19/24 23:51 Temperature Pulse Rate 79 80 79 Respiratory Rate 20 20 Blood Pressure Pulse Oximetry 97 97 Oxygen Delivery Room Air BiPAP Fraction of Inspired Oxygen 30 08/19/24 22:00 08/19/24 23:58 08/20/24 00:00 Temperature 36.5 C Pulse Rate 82 92 84 Respiratory Rate 20 Blood Pressure 152/67 H Pulse Oximetry 96 Oxygen Delivery Fraction of Inspired Oxygen 08/20/24 02:00 08/20/24 02:57 08/20/24 02:58 Temperature Pulse Rate 95 86 86 Respiratory Rate 22 H 29 H Blood Pressure Pulse Oximetry 98 Oxygen Delivery BiPAP Fraction of Inspired Oxygen 08/20/24 03:08 08/20/24 04:00 08/20/24 04:00 Temperature Pulse Rate 89 89 97 Respiratory Rate 26 H 26 H Blood Pressure Pulse Oximetry 98 Oxygen Delivery BiPAP Fraction of Inspired Oxygen 30 08/20/24 06:00 08/20/24 06:53 08/20/24 07:58 Temperature 36.9 C Pulse Rate 99 101 H Respiratory Rate 20 Blood Pressure 159/60 H Pulse Oximetry 97 97 Oxygen Delivery Room Air Fraction of Inspired Oxygen 08/20/24 07:58 08/20/24 08:09 08/20/24 08:30 Temperature Pulse Rate 99 92 102 H Respiratory Rate 20 20 Blood Pressure Pulse Oximetry Oxygen Delivery Fraction of Inspired Oxygen 08/20/24 08:53 Temperature 37.1 C Pulse Rate 101 H Respiratory Rate Blood Pressure 140/99 H Pulse Oximetry 100 Oxygen Delivery Fraction of Inspired Oxygen Intake/Output Intake/Output: Intake & Output 08/17/24 08/18/24 08/19/24 08/20/24 23:59 23:59 23:59 23:59 Intake Total 250 1550 200 Output Total 1000 1300 700 Balance -750 250 -500 Meds/Results Medications: Active Medications Generic Name Dose Route Start Last Admin Trade Name Freq PRN Reason Stop Dose Admin Acetaminophen 650 mg 08/18/24 14:47 Acetaminophen Elixir 325 Mg/10.15 Ml Udc FEED TUBE Q4H PRN pain or fever Acetylcysteine 200 mg 08/19/24 21:00 08/20/24 07:57 Acetylcysteine 20% Inhal Soln 800 Mg/4 Ml Vial INHALATION 200 mg Q12HR RHONDA Administration Albuterol/Ipratropium 3 ml 08/18/24 20:00 08/20/24 07:57 Ipratropium 0.5 Mg/Albuterol Sulfate 2.5 Mg Ampul.Neb 3 Ml NEBULIZE 3 ml Q6HRT RHONDA Administration Amlodipine Besylate 5 mg 08/19/24 09:00 08/20/24 08:31 Amlodipine Besylate 5 Mg Tablet FEED TUBE 5 mg DAILY RHONDA Administration Apixaban 5 mg 08/18/24 17:00 08/20/24 08:30 Apixaban 5 Mg Tablet FEED TUBE 5 mg BID RHONDA Administration Ascorbic Acid 500 mg 08/19/24 09:00 08/20/24 08:30 Ascorbic Acid 500 Mg Tablet PO 500 mg DAILY RHONDA Administration Aspirin 81 mg 08/19/24 08:00 08/20/24 08:31 Aspirin 81 Mg Chewable Tablet FEED TUBE 81 mg DAILY@0800 [facility]ONDA Administration Atorvastatin Calcium 40 mg 08/18/24 21:00 08/19/24 20:51 Atorvastatin 40 Mg Tablet FEED TUBE 40 mg HS RHONDA Administration Bisacodyl 10 mg 08/18/24 14:33 Bisacodyl 10 Mg Suppository RECTAL DAILY PRN Constipation Clopidogrel Bisulfate 75 mg 08/19/24 09:00 08/20/24 08:30 Clopidogrel Bisulfate 75 Mg Tablet FEED TUBE 75 mg QAM RHONDA Administration Dextrose 12.5 gm 08/18/24 14:17 Dextrose 50% 25 Gm/50 Ml Syringe IV PUSH PRN PRN Hypoglycemia Protocol Fluticasone Propionate 2 spray 08/19/24 09:00 08/20/24 08:31 Fluticasone Propionate 0.05% Na Spr 16 Gm Btl (*Bkc) NASAL 2 spray DAILY [facility]ONDA Administration Glucagon 1 mg 08/18/24 14:17 Glucagon For Inj 1 Mg Vial IM PRN PRN Hypoglycemia Protocol Glucose 15 gm 08/18/24 14:17 Glucose Oral Gel 15 Gm Of Glucse In 37.5 Gm Tube PO PRN PRN Hypoglycemia Protocol Metronidazole 500 mg in 100 mls @ 100 mls/hr 08/18/24 18:00 08/20/24 06:40 Flagyl 500 Mg/Iso Soln 100 Ml IVPB Infused Q6H [facility]ONDA Infusion Dextrose 1,000 mls @ 100 mls/hr 08/18/24 14:17 Dextrose 5% 1,000 Ml IVPB PRN PRN Hypoglycemia Protocol Levofloxacin/Dextrose 750 mg in 150 mls @ 100 mls/hr 08/18/24 17:00 08/19/24 18:51 Levaquin 750 Mg/D5w 150 Ml IVPB Infused Q24H [facility]ONDA Infusion Vancomycin HCl 1,500 mg in 500 mls @ 250 mls/hr 08/20/24 09:00 08/20/24 08:29 Vancomycin 1,500 Mg/Ns 500 Ml IVPB 250 mls/hr Q18H [facility]ONDA Administration Insulin Aspart 4 - 8 units 08/18/24 18:00 08/20/24 05:36 Insulin Aspart (*Bkc) 100 Units/Ml SUB-Q 6 units Q6HR [facility] Administration Protocol Insulin Glargine 30 units 08/18/24 21:00 08/19/24 21:56 Insulin Glargine (*Bkc) 100 Units/Ml 0.25 units/kg (30 units) 30 units SUB-Q Administration [facility] Insulin Glargine 25 units 08/19/24 09:00 08/20/24 08:44 Insulin Glargine (*Bkc) 100 Units/Ml SUB-Q 25 units DAILY [facility] Administration Lansoprazole 30 mg 08/19/24 09:00 08/20/24 08:31 Lansoprazole Odt 30 Mg Tab.Rap.Dr FEED TUBE 30 mg DAILY [facility] Administration Magnesium Citrate 296 ml 08/18/24 15:20 Magnesium Citrate 300 Ml Btl PO DAILY PRN Constipation Magnesium Hydroxide 30 ml 08/18/24 15:20 Magnesium Hydroxide Susp 30 Ml Udc PO HS PRN Constipation Meclizine HCl 12.5 mg 08/18/24 15:20 Meclizine Hcl 12.5 Mg Tablet FEED TUBE TID PRN Dizziness Metoprolol Tartrate 25 mg 08/18/24 21:00 08/20/24 08:30 Metoprolol Tartrate 25 Mg Tablet FEED TUBE 25 mg Q12HR [facility] Administration Miconazole Nitrate 1 applic 08/18/24 17:00 08/20/24 08:32 Miconazole Nitrate 2% Cream 30 Gm Tube TOPICAL 1 applic TID [facility] Administration Miscellaneous Information 1 each 08/19/24 00:01 Order Clarification XX 09/18/24 00:00 CLARIFY [facility] Multivitamins/Calcium 1 tablet 08/19/24 09:00 08/20/24 08:30 Therapeutic Multivitamins/Minerals Tab (*Bkc) PO 1 tablet DAILY [facility] Administration Non-Formulary Medication 118 ml 08/18/24 15:20 Sodium Phosphates [Fleet Enema] RECTAL ONCE PRN Constipation Oxycodone HCl 5 mg 08/19/24 11:20 08/20/24 06:14 Oxycodone Hcl (*Crx) 5 Mg Tab Ir FEED TUBE 5 mg Q4H PRN Administration Pain, Moderate Polyethylene Glycol 17 gm 08/19/24 09:00 08/20/24 08:28 Polyethylene Glycol 3350 17 Gm Powd.Pack FEED TUBE 17 gm DAILY [facility]ONDA Administration Simethicone 0.6 ml 08/18/24 15:20 Simethicone Oral Suspension 20 Mg/0.3 Ml 30 Ml Bottle FEED TUBE HS PRN GI SPASMS/CRAMPS Sodium Chloride 20 ml 08/18/24 09:43 Central Line Flush IV PUSH PRN PRN after blood draws Sodium Chloride 10 ml 08/18/24 09:43 Central Line Flush IV PUSH PRN PRN with TPN bag changes Sodium Chloride 10 ml 08/18/24 14:00 08/20/24 05:38 Central Line Flush IV PUSH 10 ml Q8HR [facility]ONDA Administration Radiology Results: ITS Impressions Chest/Abdomen/Pelvis CT 08/18/24 09:30 IMPRESSION: 1. Consolidation in the left lower lobe and lingula likely representing com bination of atelectasis and pneumonia with additional more subtle pneumonia in the right middle and lower lobes. 2. Cardiomegaly. 3. Scattered tiny parenchymal calcifications at the pancreas likely sequela of chronic pancreatitis. 4. Deep sacral decubitus ulcer. 5. Nonspecific stranding in the subcutaneous fat at the right pectoral region. Correlate clinically for either recent contusion or cellulitis. Chest X-Ray 08/18/24 10:05 IMPRESSION: 1. Right PICC line tip at the midsuperior vena cava. 2. Elevation of the left hemidiaphragm with likely combination of atelectasis and pneumonia in the left lower lung zone. Labs Labs: Laboratory Results - last 24 hr 08/19/24 08/19/24 08/19/24 07:55 09:04 11:37 WBC 13.5 H RBC 2.58 L Hgb 8.0 L Hct 25.4 L MCV 98.4 MCH 31.0 MCHC 31.5 L RDW 19.7 H Plt Count 203 MPV 10.9 H Immature Gran % (Auto) Neut % (Auto) Lymph % (Auto) [place] % (Auto) Eos % (Auto) Baso % (Auto) Lymph # (Auto) [place] # (Auto) Eos # (Auto) Baso # (Auto) Abs Immat Gran (auto) Absolute Neuts (auto) Absolute Nucleated RBC Nucleated RBC % Platelet Estimate Anisocytosis Schistocytes Sodium Potassium Chloride Carbon Dioxide Anion Gap BUN Creatinine Estim Creat Clear Calc Estimated GFR Glucose POC Capillary Glucose 326 H Calcium Magnesium Total Bilirubin AST ALT 29 Alkaline Phosphatase Total Protein Albumin Vancomycin Trough 08/19/24 08/19/24 08/20/24 17:34 21:55 00:40 WBC RBC Hgb Hct MCV MCH MCHC RDW Plt Count MPV Immature Gran % (Auto) Neut % (Auto) Lymph % (Auto) [place] % (Auto) Eos % (Auto) Baso % (Auto) Lymph # (Auto) [place] # (Auto) Eos # (Auto) Baso # (Auto) Abs Immat Gran (auto) Absolute Neuts (auto) Absolute Nucleated RBC Nucleated RBC % Platelet Estimate Anisocytosis Schistocytes Sodium Potassium Chloride Carbon Dioxide Anion Gap BUN Creatinine Estim Creat Clear Calc Estimated GFR Glucose POC Capillary Glucose 310 H 272 H 263 H Calcium Magnesium Total Bilirubin AST ALT Alkaline Phosphatase Total Protein Albumin Vancomycin Trough 08/20/24 08/20/24 02:13 05:33 WBC 11.9 H RBC 2.75 L Hgb 8.4 L Hct 28.7 L MCV 104.4 H D MCH 30.5 MCHC 29.3 L RDW 20.1 H Plt Count 207 MPV 11.0 H Immature Gran % (Auto) 0.5 Neut % (Auto) 83.2 H Lymph % (Auto) 11.0 L [place] % (Auto) 4.9 Eos % (Auto) 0.2 Baso % (Auto) 0.2 Lymph # (Auto) 1.31 [place] # (Auto) 0.6 Eos # (Auto) 0.0 Baso # (Auto) 0.0 Abs Immat Gran (auto) 0.06 H Absolute Neuts (auto) 9.9 H Absolute Nucleated RBC 0.000 Nucleated RBC % 0.0 Platelet Estimate Adequate Anisocytosis 1+ Schistocytes None seen Sodium 133 L Potassium 4.3 Chloride 102 Carbon Dioxide 20 L Anion Gap 11 BUN 33 H Creatinine 0.60 L Estim Creat Clear Calc 110 Estimated GFR > 60 Glucose 314 H POC Capillary Glucose 308 H Calcium 9.0 Magnesium 1.6 Total Bilirubin 0.8 AST 21 ALT 21 Alkaline Phosphatase 105 Total Protein 7.0 Albumin 3.3 L Vancomycin Trough 27.3 H
--- NOTE | 2024-08-20 09:27 | PCSTNOTE ---
Order for Bedside Swallow Evaluation cancelled. Will be undergoing Modified Barium Swallow study tomorrow.
[2024-08-20 12:17] LABS: Glucose Point of Care 344 mg/dl (65-105)
--- NOTE | 2024-08-20 13:00 | PM.IMPN ---
Progress Note: A&P Assessment and Plan (1) Pneumonia: Code(s): J18.9 - Pneumonia, unspecified organism Status: Acute (2) Hypercapnia: Code(s): R06.89 - Other abnormalities of breathing Status: Acute (3) Hyperglycemia: Code(s): R73.9 - Hyperglycemia, unspecified Status: Acute (4) Elevated troponin: Code(s): R79.89 - Other specified abnormal findings of blood chemistry Status: Acute (5) Paroxysmal A-fib: Code(s): I48.0 - Paroxysmal atrial fibrillation Status: Acute (6) Tracheal stenosis: Code(s): J39.8 - Other specified diseases of upper respiratory tract Status: Acute (7) Decubitus ulcer: Code(s): L89.90 - Pressure ulcer of unspecified site, unspecified stage Status: Acute (8) COPD exacerbation: Code(s): J44.1 - Chronic obstructive pulmonary disease with (acute) exacerbation Status: Acute (9) Respiratory failure: Code(s): J96.90 - Respiratory failure, unspecified, unspecified whether with hypoxia or hypercapnia Status: Acute Plan This is a 64-year-old male presents emergency department for evaluation of worsening shortness of breath. On arrival to the ED he was afebrile with stable vitals except for tachypnea. He was initially on non-rebreather mask. Influenza RSV COVID swab was negative. ABG showed 7.21/60/109/24. He was placed on BiPAP Placed on non-rebreather mask. Repeat ABG after BiPAP was 7.47/23/136/16. EKG showed sinus tachycardia with occasional premature ectopic complexes nonspecific ST-T [place]. [place] [address] hemoglobin of 9 hematocrit of 29 platelet of 233. Potassium was 5.3 creatinine was 0.8 blood sugar was 585 BNP 3050. Troponin was 0.130. Chest x-ray showed right PICC line at mid SVC elevation of the left hemidiaphragm with likely combination of atelectasis and pneumonia in the left lower lung zone. CT chest abdomen pelvis without contrast showed consultation in the left lower lobe and lingula likely representing combination of atelectasis and pneumonia with additional more subtle pneumonia in the right middle and lower lungs. Cardiomegaly. Scattered tiny parenchymal calcification at the pancreatic likely sequelae of chronic pancreatitis. Deep sacral decubitus ulcer. Nonspecific stranding in the subcutaneous fat at the right pectoral region. Blood cultures has been obtained. Nasal MRSA swab was positive. Patient is started on vancomycin Levaquin and Flagyl. Blood culture 1 of them turned positive for Gram-positive cocci in clusters which is identified as Staph epidermidis. Likely contamination. Acute on chronic hypercapnic respiratory failure needing BiPAP support on admission. Stopped and will use p.r.n. Pulmonary on board. Multifocal pneumonia urine antigens ordered. Continue broad-spectrum antibiotics as ordered. 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 He states he got some procedure done for this at [facility]. Will get records. Will do soft tissue neck CT to further evaluate this area. History of tracheostomy 04/02/2024 for failure to wean Status post PEG tube placement on tube feed Status post right BKA Hypertension Peripheral arterial disease Anxiety Coronary artery disease with history of STEMI 02/2024 Paroxysmal Atrial fibrillation with history of electrical cardioversion in the past Diabetic peripheral neuropathy CKD stage 3 Normal sciatic anemia chronic Dyslipidemia Tobacco abuse Hypertension Type 2 diabetes on insulin Diet on tube feeds. Hold off on oral diet until speech evaluation. Will plan for MBS for a.m. has could not be done today DVT prophylaxis Code status full code Subjective Date/time seen: 08/20/24 13:00 Interval history: No overnight events. Still has intermittent shortness of breath. Continues to suction oral secretions. MBS could not be done today. Review of Systems Review of Systems: All systems reviewed & are unremarkable except as noted in HPI and below Exam Narrative: GENERAL: Ill-appearing, well-nourished, and in no acute distress. Awake and alert and conversant HEAD: Normocephalic, atraumatic. EYES: PERRLA and EOMI. ENT: Nares clear, no rhinorrhea or epistaxis. Mucous membranes moist. NECK: Supple. CHEST: Coarse breath sound bilaterally no wheezing No respiratory distress. HEART: Regular rate and rhythm. No murmur heard. Normal peripheral pulses. ABDOMEN: Soft, nontender, nondistended, normal active bowel sounds. G-tube in place EXTREMITIES: Normal range of motion bilateral below-knee. No edema. SKIN: Warm, dry, no rash. NEURO: No focal deficits. Alert and awake and conversant PSYCH: Normal mood Objective Data Vital Signs Vital Signs: Vital Signs - 24 hr 08/19/24 13:05 08/19/24 14:00 08/19/24 16:00 Temperature Pulse Rate 85 125 H 74 Respiratory Rate 20 Blood Pressure Pulse Oximetry Oxygen Delivery Fraction of Inspired Oxygen 08/19/24 18:00 08/19/24 17:30 08/19/24 20:17 Temperature 98.2 F 98.6 F Pulse Rate 79 77 85 Respiratory Rate 20 20 Blood Pressure 132/98 H 128/62 Pulse Oximetry 96 97 Oxygen Delivery Fraction of Inspired Oxygen 08/19/24 20:51 08/19/24 21:27 08/19/24 20:00 Temperature Pulse Rate 83 79 79 Respiratory Rate 20 20 Blood Pressure Pulse Oximetry 97 Oxygen Delivery Room Air Fraction of Inspired Oxygen 08/19/24 20:00 08/19/24 23:51 08/19/24 22:00 Temperature Pulse Rate 80 79 82 Respiratory Rate 20 Blood Pressure Pulse Oximetry 97 Oxygen Delivery BiPAP Fraction of Inspired Oxygen 30 08/19/24 23:58 08/20/24 00:00 08/20/24 02:00 Temperature 97.7 F Pulse Rate 92 84 95 Respiratory Rate 20 Blood Pressure 152/67 H Pulse Oximetry 96 Oxygen Delivery Fraction of Inspired Oxygen 08/20/24 02:57 08/20/24 02:58 08/20/24 03:08 Temperature Pulse Rate 86 86 89 Respiratory Rate 22 H 29 H 26 H Blood Pressure Pulse Oximetry 98 Oxygen Delivery BiPAP Fraction of Inspired Oxygen 08/20/24 04:00 08/20/24 04:00 08/20/24 06:00 Temperature Pulse Rate 89 97 99 Respiratory Rate 26 H Blood Pressure Pulse Oximetry 98 Oxygen Delivery BiPAP Fraction of Inspired Oxygen 30 08/20/24 06:53 08/20/24 07:58 08/20/24 07:58 Temperature 98.5 F Pulse Rate 101 H 99 Respiratory Rate 20 20 Blood Pressure 159/60 H Pulse Oximetry 97 97 Oxygen Delivery Room Air Fraction of Inspired Oxygen 08/20/24 08:09 08/20/24 08:30 08/20/24 08:53 Temperature 98.7 F Pulse Rate 92 102 H 101 H Respiratory Rate 20 Blood Pressure 140/99 H Pulse Oximetry 100 Oxygen Delivery Fraction of Inspired Oxygen 08/20/24 08:00 08/20/24 09:45 08/20/24 08:00 Temperature Pulse Rate 99 83 83 Respiratory Rate 20 Blood Pressure Pulse Oximetry 100 Oxygen Delivery Room Air Fraction of Inspired Oxygen 08/20/24 12:09 Temperature 98.0 F Pulse Rate 76 Respiratory Rate 22 H Blood Pressure 129/58 L Pulse Oximetry 96 Oxygen Delivery Fraction of Inspired Oxygen Intake/Output Intake/Output: Intake & Output 08/17/24 08/18/24 08/19/24 08/20/24 23:59 23:59 23:59 23:59 Intake Total 250 1550 200 Output Total 1000 1300 700 Balance -750 250 -500 Meds/Results Medications: Active Medications Generic Name Dose Route Start Last Admin Trade Name Freq PRN Reason Stop Dose Admin Acetaminophen 650 mg 08/18/24 14:47 Acetaminophen Elixir 325 Mg/10.15 Ml Udc FEED TUBE Q4H PRN pain or fever Acetylcysteine 200 mg 08/19/24 21:00 08/20/24 07:57 Acetylcysteine 20% Inhal Soln 800 Mg/4 Ml Vial INHALATION 200 mg Q12HR RHONDA Administration Albuterol/Ipratropium 3 ml 08/18/24 20:00 08/20/24 07:57 Ipratropium 0.5 Mg/Albuterol Sulfate 2.5 Mg Ampul.Neb 3 Ml NEBULIZE 3 ml Q6HRT RHONDA Administration Amlodipine Besylate 5 mg 08/19/24 09:00 08/20/24 08:31 Amlodipine Besylate 5 Mg Tablet FEED TUBE 5 mg DAILY RHONDA Administration Apixaban 5 mg 08/18/24 17:00 08/20/24 08:30 Apixaban 5 Mg Tablet FEED TUBE 5 mg BID RHONDA Administration Ascorbic Acid 500 mg 08/19/24 09:00 08/20/24 08:30 Ascorbic Acid 500 Mg Tablet PO 500 mg DAILY RHONDA Administration Aspirin 81 mg 08/19/24 08:00 08/20/24 08:31 Aspirin 81 Mg Chewable Tablet FEED TUBE 81 mg DAILY@0800 RHONDA Administration Atorvastatin Calcium 40 mg 08/18/24 21:00 08/19/24 20:51 Atorvastatin 40 Mg Tablet FEED TUBE 40 mg HS RHONDA Administration Bisacodyl 10 mg 08/18/24 14:33 Bisacodyl 10 Mg Suppository RECTAL DAILY PRN Constipation Clopidogrel Bisulfate 75 mg 08/19/24 09:00 08/20/24 08:30 Clopidogrel Bisulfate 75 Mg Tablet FEED TUBE 75 mg QAM RHONDA Administration Dextrose 12.5 gm 08/18/24 14:17 Dextrose 50% 25 Gm/50 Ml Syringe IV PUSH PRN PRN Hypoglycemia Protocol Fluticasone Propionate 2 spray 08/19/24 09:00 08/20/24 08:31 Fluticasone Propionate 0.05% Na Spr 16 Gm Btl (*Bkc) NASAL 2 spray DAILY RHONDA Administration Glucagon 1 mg 08/18/24 14:17 Glucagon For Inj 1 Mg Vial IM PRN PRN Hypoglycemia Protocol Glucose 15 gm 08/18/24 14:17 Glucose Oral Gel 15 Gm Of Glucse In 37.5 Gm Tube PO PRN PRN Hypoglycemia Protocol Metronidazole 500 mg in 100 mls @ 100 mls/hr 08/18/24 18:00 08/20/24 12:20 Flagyl 500 Mg/Iso Soln 100 Ml IVPB 100 mls/hr Q6H RHONDA Administration Dextrose 1,000 mls @ 100 mls/hr 08/18/24 14:17 Dextrose 5% 1,000 Ml IVPB PRN PRN Hypoglycemia Protocol Levofloxacin/Dextrose 750 mg in 150 mls @ 100 mls/hr 08/18/24 17:00 08/19/24 18:51 Levaquin 750 Mg/D5w 150 Ml IVPB Infused Q24H RHONDA Infusion Vancomycin HCl 1,500 mg in 500 mls @ 250 mls/hr 08/20/24 09:00 08/20/24 08:29 Vancomycin 1,500 Mg/Ns 500 Ml IVPB 250 mls/hr Q18H RHONDA Administration Insulin Aspart 4 - 8 units 08/18/24 18:00 08/20/24 12:19 Insulin Aspart (*Bkc) 100 Units/Ml SUB-Q 6 units Q6HR RHONDA Administration Protocol Insulin Glargine 30 units 08/18/24 21:00 08/19/24 21:56 Insulin Glargine (*Bkc) 100 Units/Ml 0.25 units/kg (30 units) 30 units SUB-Q Administration HS RHONDA Insulin Glargine 25 units 08/19/24 09:00 08/20/24 08:44 Insulin Glargine (*Bkc) 100 Units/Ml SUB-Q 25 units DAILY RHONDA Administration Lansoprazole 30 mg 08/19/24 09:00 08/20/24 08:31 Lansoprazole Odt 30 Mg Tab.Rap.Dr FEED TUBE 30 mg DAILY RHONDA Administration Magnesium Citrate 296 ml 08/18/24 15:20 Magnesium Citrate 300 Ml Btl PO DAILY PRN Constipation Magnesium Hydroxide 30 ml 08/18/24 15:20 Magnesium Hydroxide Susp 30 Ml Udc PO HS PRN Constipation Meclizine HCl 12.5 mg 08/18/24 15:20 Meclizine Hcl 12.5 Mg Tablet FEED TUBE TID PRN Dizziness Metoprolol Tartrate 25 mg 08/18/24 21:00 08/20/24 08:30 Metoprolol Tartrate 25 Mg Tablet FEED TUBE 25 mg Q12HR RHONDA Administration Miconazole Nitrate 1 applic 08/18/24 17:00 08/20/24 12:20 Miconazole Nitrate 2% Cream 30 Gm Tube TOPICAL 1 applic TID RHONDA Administration Miscellaneous Information 1 each 08/19/24 00:01 Order Clarification XX 09/18/24 00:00 CLARIFY RHONDA Multivitamins/Calcium 1 tablet 08/19/24 09:00 08/20/24 08:30 Therapeutic Multivitamins/Minerals Tab (*Bkc) PO 1 tablet DAILY RHONDA Administration Non-Formulary Medication 118 ml 08/18/24 15:20 Sodium Phosphates [Fleet Enema] RECTAL ONCE PRN Constipation Oxycodone HCl 5 mg 08/19/24 11:20 08/20/24 10:37 Oxycodone Hcl (*Crx) 5 Mg Tab Ir FEED TUBE 5 mg Q4H PRN Administration Pain, Moderate Polyethylene Glycol 17 gm 08/19/24 09:00 08/20/24 08:28 Polyethylene Glycol 3350 17 Gm Powd.Pack FEED TUBE 17 gm DAILY RHONDA Administration Simethicone 0.6 ml 08/18/24 15:20 Simethicone Oral Suspension 20 Mg/0.3 Ml 30 Ml Bottle FEED TUBE HS PRN GI SPASMS/CRAMPS Sodium Chloride 20 ml 08/18/24 09:43 Central Line Flush IV PUSH PRN PRN after blood draws Sodium Chloride 10 ml 08/18/24 09:43 Central Line Flush IV PUSH PRN PRN with TPN bag changes Sodium Chloride 10 ml 08/18/24 14:00 08/20/24 05:38 Central Line Flush IV PUSH 10 ml Q8HR RHONDA Administration Radiology Results: ITS Impressions Chest/Abdomen/Pelvis CT 08/18/24 09:30 IMPRESSION: 1. Consolidation in the left lower lobe and lingula likely representing combination of atelectasis and pneumonia with additional more subtle pneumonia in the right middle and lower lobes. 2. Cardiomegaly. 3. Scattered tiny parenchymal calcifications at the pancreas likely sequela of chronic pancreatitis. 4. Deep sacral decubitus ulcer. 5. Nonspecific stranding in the subcutaneous fat at the right pectoral region. Correlate clinically for either recent contusion or cellulitis. Chest X-Ray 08/18/24 10:05 IMPRESSION: 1. Right PICC line tip at the midsuperior vena cava. 2. Elevation of the left hemidiaphragm with likely combination of atelectasis and pneumonia in the left lower lung zone. Labs Labs: Laboratory Results - last 24 hr 08/19/24 08/19/24 08/20/24 17:34 21:55 00:40 WBC RBC Hgb Hct MCV MCH MCHC RDW Plt Count MPV Immature Gran % (Auto) Neut % (Auto) Lymph % (Auto) [place] % (Auto) Eos % (Auto) Baso % (Auto) Lymph # (Auto) [place] # (Auto) Eos # (Auto) Baso # (Auto) Abs Immat Gran (auto) Absolute Neuts (auto) Absolute Nucleated RBC Nucleated RBC % Platelet Estimate Anisocytosis Schistocytes Sodium Potassium Chloride Carbon Dioxide Anion Gap BUN Creatinine Estim Creat Clear Calc Estimated GFR Glucose POC Capillary Glucose 310 H 272 H 263 H Calcium Magnesium Total Bilirubin AST ALT Alkaline Phosphatase Total Protein Albumin Vancomycin Trough 08/20/24 08/20/24 08/20/24 02:13 05:33 12:08 WBC 11.9 H RBC 2.75 L Hgb 8.4 L Hct 28.7 L MCV 104.4 H D MCH 30.5 MCHC 29.3 L RDW 20.1 H Plt Count 207 MPV 11.0 H Immature Gran % (Auto) 0.5 Neut % (Auto) 83.2 H Lymph % (Auto) 11.0 L [place] % (Auto) 4.9 Eos % (Auto) 0.2 Baso % (Auto) 0.2 Lymph # (Auto) 1.31 [place] # (Auto) 0.6 Eos # (Auto) 0.0 Baso # (Auto) 0.0 Abs Immat Gran (auto) 0.06 H Absolute Neuts (auto) 9.9 H Absolute Nucleated RBC 0.000 Nucleated RBC % 0.0 Platelet Estimate Adequate Anisocytosis 1+ Schistocytes None seen Sodium 133 L Potassium 4.3 Chloride 102 Carbon Dioxide 20 L Anion Gap 11 BUN 33 H Creatinine 0.60 L Estim Creat Clear Calc 110 Estimated GFR > 60 Glucose 314 H POC Capillary Glucose 308 H 344 H Calcium 9.0 Magnesium 1.6 Total Bilirubin 0.8 AST 21 ALT 21 Alkaline Phosphatase 105 Total Protein 7.0 Albumin 3.3 L Vancomycin Trough 27.3 H
[2024-08-20] MEDS: INSULIN ASPART (*BKC) 100 UNITS/ML 8 UNITS SUB-Q ×3 (15:09→23:51)
[2024-08-20] MEDS: levoFLOXacin 750 MG/D5W 150 ML 750 MG/150 ML BAG 150 MG IVPB (17:11)
[2024-08-20 18:21] LABS: Glucose Point of Care 253 mg/dl (65-105)
[2024-08-20] MEDS: ATORVASTATIN 40 MG TABLET FEED TUBE (20:56)
[2024-08-20] MEDS: INSULIN GLARGINE (*BKC) 100 UNITS/ML 30 UNITS SUB-Q (20:56)
--- NOTE | 2024-08-20 21:07 | PCRCNOTE ---
Pt refused his PM Mucomyst tx this evening, stating he does not like the smell. Pt would not take this tx. Bronchodilator nebulizer tx still given. Therapist will try in the AM for mucomyst.
[2024-08-21] VITALS (20 sets, daily range): BP systolic 108–142; BP diastolic 49–106; PULSE 66–105; RESP 18–24; TEMP 36.4–37.1; O2SAT 94–100
[2024-08-21 00:05] LABS: Glucose Point of Care 154 mg/dl (65-105)
[2024-08-21] MEDS: IPRATROPIUM 0.5 MG/ALBUTEROL SULFATE 2.5 MG AMPUL.NEB 3 ML NEBULIZE ×4 (02:17→20:06)
[2024-08-21] MEDS: oxyCODONE HCL (*CRX) 5 MG TAB IR FEED TUBE ×5 (02:19→21:54)
[2024-08-21] MEDS: VANCOMYCIN 1,500 MG/NS 500 ML 1,500 MG/500 ML BAG 250 MG IVPB (02:23)
[2024-08-21 06:05] LABS: Estimated CRCL calculation 110 ml/min; Estimated Glomerular Filt Rate > 60
[2024-08-21] MEDS: INSULIN ASPART (*BKC) 100 UNITS/ML SUB-Q ×2 (06:19→17:57)
[2024-08-21] MEDS: INSULIN ASPART (*BKC) 100 UNITS/ML 8 UNITS SUB-Q ×3 (06:19→17:57)
[2024-08-21] MEDS: CENTRAL LINE FLUSH 10 ML IV PUSH ×3 (06:20→21:44)
[2024-08-21] MEDS: metroNIDAZOLE 500 MG/ISO 100ML 500 MG/100 ML BAG 100 MG IVPB ×2 (06:21→12:49)
[2024-08-21 06:28] LABS: Glucose Point of Care 257 mg/dl (65-105)
[2024-08-21] MEDS: ACETAMINOPHEN ELIXIR 325 MG/10.15 ML UDC 650 MG FEED TUBE ×4 (06:29→21:55)
[2024-08-21] MEDS: ASPIRIN 81 MG CHEWABLE TABLET FEED TUBE (09:05)
[2024-08-21] MEDS: ASCORBIC ACID 500 MG TABLET PO (09:05)
[2024-08-21] MEDS: CLOPIDOGREL BISULFATE 75 MG TABLET FEED TUBE (09:05)
[2024-08-21] MEDS: APIXABAN 5 MG TABLET FEED TUBE ×2 (09:05→17:56)
[2024-08-21] MEDS: LANSOPRAZOLE ODT 30 MG TAB.RAP.DR FEED TUBE (09:05)
[2024-08-21] MEDS: METOPROLOL TARTRATE 25 MG TABLET FEED TUBE ×2 (09:06→20:08)
[2024-08-21] MEDS: THERAPEUTIC MULTIVITAMINS/MINERALS TAB (*BKC) 1 TABLET PO (09:06)
[2024-08-21] MEDS: amLODIPine BESYLATE 5 MG TABLET FEED TUBE (09:06)
[2024-08-21] MEDS: MICONAZOLE NITRATE 2% CREAM 30 GM TUBE 1 APPLIC TOPICAL ×3 (09:07→17:57)
[2024-08-21] MEDS: polyethylene glycoL 3350 17 GM POWD.PACK FEED TUBE (09:07)
[2024-08-21] MEDS: FLUTICASONE PROPIONATE 0.05% NA SPR 16 GM BTL (*BKC) 2 SPRAY NASAL (09:07)
[2024-08-21] MEDS: INSULIN GLARGINE (*BKC) 100 UNITS/ML 30 UNITS SUB-Q ×2 (09:12→20:11)
--- NOTE | 2024-08-21 11:16 | PCSTNOTE ---
Dr. Andrade, Hospitalist, notified this therapist that MBS is on hold for today. Will discuss possible MBS tomorrow morning.
[2024-08-21 11:43] LABS: Glucose Point of Care 188 mg/dl (65-105)
--- NOTE | 2024-08-21 11:57 | P.PNPL_ITS ---
Progress Note: A&P Assessment and Plan (1) Acute respiratory failure: Qualifiers: Respiratory failure complication: unspecified whether with hypoxia or hypercapnia Qualified Code(s): J96.00 - Acute respiratory failure, unspecified whether with hypoxia or hypercapnia Code(s): J96.00 - Acute respiratory failure, unspecified whether with hypoxia or hypercapnia Status: Acute Assessment and Plan: This 64-year-old man with multiple medical problems, including diabetes mellitus, coronary artery disease, peripheral artery disease, chronic left lung atelectasis, and frequent hospitalizations for respiratory failure with previous intubation and 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 The patient has been on vancomycin, levofloxacin, and metronidazole. His respiratory status has improved, and currently, the patient is on room air. He tested positive for MRSA. Other issues include a large decubitus ulcer, for which he has been on pain medications. The patient carries a diagnosis of COPD, although his pulmonary function testing four years ago did not clearly show obstructive airway disease. The patient has had left lower lobe collapse, which was also present during previous hospitalizations in June and July of this year. It is unclear whether this left lower lobe collapse is related to mucus plugging or due to trapped lung. Possible left diaphragm paralysis may also contribute to chronic left lower lobe atelectasis. On today's physical exam his chest expansion is more symmetrical than before whi ch may suggest improvement nor even resolution of the left lower lobe collapse. WBC trending down on current antibiotic regimen. Plan: Stat chest x-ray to assess left lung atelectasis Continue with the current antibiotic regimen. Consider BiPAP support as needed. Reposition the patient in bed, keeping the left side up, as necessary. Continue pulmonary toilet using nebulized short-acting bronchodilators four times daily and nebulized mucolytic agents twice daily, along with incentive spirometry. (2) Pneumonia: Code(s): J18.9 - Pneumonia, unspecified organism Status: Acute (3) Pulmonary atelectasis: Code(s): J98.11 - Atelectasis Status: Acute (4) Tracheal stenosis: Code(s): J39.8 - Other specified diseases of upper respiratory tract Status: Acute Subjective Date/time seen: 08/21/24 11:57 Interval history: Patient has no new respiratory symptoms. Used BiPAP support for short period of time only last night.. Has had sputum production but less than before. Remains on room air. Review of Systems Review of Systems: All systems reviewed & are unremarkable except as noted in HPI and below (HPI and below) Exam Narrative: GENERAL APPEARANCE: Well developed, well nourished, alert and non cooperative, appears in mild respiratory distress while on room air HEENT: Sclerae anicteric and conjunctivae pink and moist. Extraocular movements were intact and pupils were equal. NECK: Supple. There was no thyroid enlargement, and no tenderness, or masses were felt. LUNGS: Decreased breath sounds left base posteriorly, no wheezing CARDIAC: There was a regular rate and rhythm without any murmurs, gallops, rubs. ABDOMEN: Soft and nontender with normal bowel sounds. There was no organomegaly. LYMPH NODES: No lymphadenopathy was appreciated in the neck. EXTREMITIES: No cyanosis, clubbing or edema left lower extremity; chronic stasis dermatitis left lower extremity. Right BKA. NEUROLOGIC: Alert and oriented x 3. Normal affect. Objective Data Vital Signs Vital Signs: Vital Signs - 24 hr 08/20/24 12:09 08/20/24 13:50 08/20/24 12:00 Temperature 36.7 C Pulse Rate 76 79 80 Respiratory Rate 22 H 20 Blood Pressure 129/58 L Pulse Oximetry 96 Oxygen Delivery 08/20/24 12:00 08/20/24 13:59 08/20/24 14:01 Temperature Pulse Rate 79 77 79 Respiratory Rate 20 20 Blood Pressure Pulse Oximetry 96 Oxygen Delivery Room Air 08/20/24 16:00 08/20/24 16:00 08/20/24 16:00 Temperature 36.7 C Pulse Rate 73 77 77 Respiratory Rate 20 Blood Pressure 153/57 H Pulse Oximetry 97 97 Oxygen Delivery Room Air 08/20/24 18:00 08/20/24 20:00 08/20/24 20:19 Temperature 36.3 C L Pulse Rate 86 88 Respiratory Rate 20 Blood Pressure 115/60 Pulse Oximetry 97 97 Oxygen Delivery Room Air 08/20/24 20:19 08/20/24 20:31 08/20/24 20:37 Temperature Pulse Rate 88 82 83 Respiratory Rate 20 20 28 H Blood Pressure Pulse Oximetry 98 Oxygen Delivery BiPAP 08/20/24 20:56 08/20/24 20:00 08/20/24 23:05 Temperature Pulse Rate 99 68 Respiratory Rate 24 H Blood Pressure Pulse Oximetry 98 98 Oxygen Delivery BiPAP BiPAP 08/20/24 20:00 08/20/24 22:00 08/21/24 00:00 Temperature Pulse Rate 89 71 73 Respiratory Rate Blood Pressure Pulse Oximetry Oxygen Delivery 08/21/24 00:00 08/21/24 00:00 08/21/24 02:00 Temperature 37.1 C Pulse Rate 73 80 Respiratory Rate 20 Blood Pressure 127/49 L Pulse Oximetry 98 100 Oxygen Delivery BiPAP 08/21/24 02:19 08/21/24 02:27 08/21/24 04:00 Temperature 36.6 C Pulse Rate 79 82 82 Respiratory Rate 20 20 18 Blood Pressure 142/73 H Pulse Oximetry 97 Oxygen Delivery 08/21/24 04:00 08/21/24 06:00 08/21/24 04:00 Temperature Pulse Rate 85 94 Respiratory Rate Blood Pressure Pulse Oximetry 96 Oxygen Delivery Room Air 08/21/24 07:52 08/21/24 07:52 08/21/24 08:01 Temperature Pulse Rate 90 84 Respiratory Rate 24 H 24 H Blood Pressure Pulse Oximetry 97 Oxygen Delivery Room Air 08/21/24 07:52 08/21/24 09:06 08/21/24 08:00 Temperature 37.1 C Pulse Rate 88 85 91 Respiratory Rate 24 H Blood Pressure 108/72 Pulse Oximetry 97 Oxygen Delivery 08/21/24 10:00 Temperature Pulse Rate 81 Respiratory Rate Blood Pressure Pulse Oximetry Oxygen Delivery Intake/Output Intake/Output: Intake & Output 08/18/24 08/19/24 08/20/24 08/21/24 23:59 23:59 23:59 23:59 Intake Total 250 1550 1050 5480 Output Total 1000 1300 1550 650 Balance -750 250 -500 4830 Meds/Results Medications: Active Medications Generic Name Dose Route Start Last Admin Trade Name Freq PRN Reason Stop Dose Admin Acetaminophen 650 mg 08/18/24 14:47 08/21/24 10:34 Acetaminophen Elixir 325 Mg/10.15 Ml Udc FEED TUBE 650 mg Q4H PRN Administration pain or fever Acetylcysteine 200 mg 08/19/24 21:00 08/21/24 07:56 Acetylcysteine 20% Inhal Soln 800 Mg/4 Ml Vial INHALATION Not Given Q12HR [facility]ONDA Albuterol/Ipratropium 3 ml 08/18/24 20:00 08/21/24 07:51 Ipratropium 0.5 Mg/Albuterol Sulfate 2.5 Mg Ampul.Neb 3 Ml NEBULIZE 3 ml Q6HRT RHONDA Administration Amlodipine Besylate 5 mg 08/19/24 09:00 08/21/24 09:06 Amlodipine Besylate 5 Mg Tablet FEED TUBE 5 mg DAILY RHONDA Administration Apixaban 5 mg 08/18/24 17:00 08/21/24 09:05 Apixaban 5 Mg Tablet FEED TUBE 5 mg BID RHONDA Administration Ascorbic Acid 500 mg 08/19/24 09:00 08/21/24 09:05 Ascorbic Acid 500 Mg Tablet PO 500 mg DAILY [facility]ONDA Administration Aspirin 81 mg 08/19/24 08:00 08/21/24 09:05 Aspirin 81 Mg Chewable Tablet FEED TUBE 81 mg DAILY@0800 RHONDA Administration Atorvastatin Calcium 40 mg 08/18/24 21:00 08/20/24 20:56 Atorvastatin 40 Mg Tablet FEED TUBE 40 mg HS [facility]ONDA Administration Bisacodyl 10 mg 08/18/24 14:33 Bisacodyl 10 Mg Suppository RECTAL DAILY PRN Constipation Clopidogrel Bisulfate 75 mg 08/19/24 09:00 08/21/24 09:05 Clopidogrel Bisulfate 75 Mg Tablet FEED TUBE 75 mg QAM [facility]ONDA Administration Dextrose 12.5 gm 08/20/24 13:09 Dextrose 50% 25 Gm/50 Ml Syringe IV PUSH PRN PRN Hypoglycemia Protocol Fluticasone Propionate 2 spray 08/19/24 09:00 08/21/24 09:07 Fluticasone Propionate 0.05% Na Spr 16 Gm Btl (*Bkc) NASAL 2 spray DAILY [facility]ONDA Administration Glucagon 1 mg 08/20/24 13:09 Glucagon For Inj 1 Mg Vial IM PRN PRN Hypoglycemia Protocol Glucose 15 gm 08/20/24 13:09 Glucose Oral Gel 15 Gm Of Glucse In 37.5 Gm Tube PO PRN PRN Hypoglycemia Protocol Metronidazole 500 mg in 100 mls @ 100 mls/hr 08/18/24 18:00 08/21/24 07:21 Flagyl 500 Mg/Iso Soln 100 Ml IVPB Infused Q6H [facility] Infusion Levofloxacin/Dextrose 750 mg in 150 mls @ 100 mls/hr 08/18/24 17:00 08/20/24 18:03 Levaquin 750 Mg/D5w 150 Ml IVPB Infused Q24H [facility] Infusion Vancomycin HCl 1,500 mg in 500 mls @ 250 mls/hr 08/20/24 09:00 08/21/24 04:23 Vancomycin 1,500 Mg/Ns 500 Ml IVPB Infused Q18H [facility] Infusion Dextrose 1,000 mls @ 100 mls/hr 08/20/24 13:09 Dextrose 5% 1,000 Ml IVPB PRN PRN Hypoglycemia Protocol Insulin Aspart 4 - 8 units 08/18/24 18:00 08/21/24 11:55 Insulin Aspart (*Bkc) 100 Units/Ml SUB-Q Not Given Q6HR [facility] Protocol Insulin Aspart 8 units 08/20/24 13:10 08/21/24 06:19 Insulin Aspart (*Bkc) 100 Units/Ml SUB-Q 8 units Q6HR [facility]ONDA Administration Insulin Glargine 30 units 08/20/24 21:00 08/21/24 09:12 Insulin Glargine (*Bkc) 100 Units/Ml 0.25 units/kg (30 units) 30 units SUB-Q Administration Q12HR [facility] Lansoprazole 30 mg 08/19/24 09:00 08/21/24 09:05 Lansoprazole Odt 30 Mg Tab.Rap.Dr FEED TUBE 30 mg DAILY [facility]ONDA Administration Magnesium Citrate 296 ml 08/18/24 15:20 Magnesium Citrate 300 Ml Btl PO DAILY PRN Constipation Magnesium Hydroxide 30 ml 08/18/24 15:20 Magnesium Hydroxide Susp 30 Ml Udc PO HS PRN Constipation Meclizine HCl 12.5 mg 08/18/24 15:20 Meclizine Hcl 12.5 Mg Tablet FEED TUBE TID PRN Dizziness Metoprolol Tartrate 25 mg 08/18/24 21:00 08/21/24 09:06 Metoprolol Tartrate 25 Mg Tablet FEED TUBE 25 mg Q12HR [facility] Administration Miconazole Nitrate 1 applic 08/18/24 17:00 08/21/24 09:07 Miconazole Nitrate 2% Cream 30 Gm Tube TOPICAL 1 applic TID [facility] Administration Miscellaneous Information 1 each 08/19/24 00:01 08/21/24 11:55 Order Clarification XX 09/18/24 00:00 Not Given CLARIFY [facility] Multivitamins/Calcium 1 tablet 08/19/24 09:00 08/21/24 09:06 Therapeutic Multivitamins/Minerals Tab (*Bkc) PO 1 tablet DAILY [facility]ONDA Administration Non-Formulary Medication 118 ml 08/18/24 15:20 Sodium Phosphates [Fleet Enema] RECTAL ONCE PRN Constipation Oxycodone HCl 5 mg 08/19/24 11:20 08/21/24 10:34 Oxycodone Hcl (*Crx) 5 Mg Tab Ir FEED TUBE 5 mg Q4H PRN Administration Pain, Moderate Polyethylene Glycol 17 gm 08/19/24 09:00 08/21/24 09:07 Polyethylene Glycol 3350 17 Gm Powd.Pack FEED TUBE 17 gm DAILY [facility]ONDA Administration Simethicone 0.6 ml 08/18/24 15:20 Simethicone Oral Suspension 20 Mg/0.3 Ml 30 Ml Bottle FEED TUBE HS PRN GI SPASMS/CRAMPS Sodium Chloride 20 ml 08/18/24 09:43 Central Line Flush IV PUSH PRN PRN after blood draws Sodium Chloride 10 ml 08/18/24 09:43 Central Line Flush IV PUSH PRN PRN with TPN bag changes Sodium Chloride 10 ml 08/18/24 14:00 08/21/24 06:20 Central Line Flush IV PUSH 10 ml Q8HR [facility]ON[facility] Administration Radiology Results: ITS Impressions Chest/Abdomen/Pelvis CT 08/18/24 09:30 IMPRESSION: 1. Consolidation in the left lower lobe and lingula likely representing combination of atelectasis and pneumonia with additional more subtle pneumonia in the right middle and lower lobes. 2. Cardiomegaly. 3. Scattered tiny parenchymal calcifications at the pancreas likely sequela of chronic pancreatitis. 4. Deep sacral decubitus ulcer. 5. Nonspecific stranding in the subcutaneous fat at the right pectoral region. Correlate clinically for either recent contusion or cellulitis. Chest X-Ray 08/18/24 10:05 IMPRESSION: 1. Right PICC line tip at the midsuperior vena cava. 2. Elevation of the left hemidiaphragm with likely combination of atelectasis and pneumonia in the left lower lung zone. Labs Labs: Laboratory Results - last 24 hr 08/20/24 08/20/24 08/20/24 12:08 18:07 23:49 Creatinine Estim Creat Clear Calc Estimated GFR POC Capillary Glucose 344 H 253 H 154 H 08/21/24 08/21/24 08/21/24 05:44 06:18 11:17 Creatinine 0.60 L Estim Creat Clear Calc 110 Estimated GFR > 60 POC Capillary Glucose 257 H 188 H
--- NOTE | 2024-08-21 14:04 | PM.IMPN ---
Progress Note: A&P Assessment and Plan (1) Pneumonia: Code(s): J18.9 - Pneumonia, unspecified organism Status: Acute (2) Hypercapnia: Code(s): R06.89 - Other abnormalities of breathing Status: Acute (3) Hyperglycemia: Code(s): R73.9 - Hyperglycemia, unspecified Status: Acute (4) Elevated troponin: Code(s): R79.89 - Other specified abnormal findings of blood chemistry Status: Acute (5) Paroxysmal A-fib: Code(s): I48.0 - Paroxysmal atrial fibrillation Status: Acute (6) Tracheal stenosis: Code(s): J39.8 - Other specified diseases of upper respiratory tract Status: Acute (7) Decubitus ulcer: Code(s): L89.90 - Pressure ulcer of unspecified site, unspecified stage Status: Acute (8) COPD exacerbation: Code(s): J44.1 - Chronic obstructive pulmonary disease with (acute) exacerbation Status: Acute (9) Respiratory failure: Code(s): J96.90 - Respiratory failure, unspecified, unspecified whether with hypoxia or hypercapnia Status: Acute Plan HPI - This is a 64-year-old male presents emergency department for evaluation of worsening shortness of breath. ED - On arrival to the ED he was afebrile with stable vitals except for tachypnea. He was initially on non-rebreather mask. Influenza RSV COVID swab was negative. ABG showed 7.21/60/109/24. He was placed on BiPAP Placed on non-rebreather mask. Repeat ABG after BiPAP was 7.47/23/136/16. EKG showed sinus tachycardia with occasional premature ectopic complexes nonspecific ST-T [place]. [place] [address] hemoglobin of 9 hematocrit of 29 platelet of 233. Potassium was 5.3 creatinine was 0.8 blood sugar was 585 BNP 3050. Troponin was 0.130. Chest x-ray showed right PICC line at mid SVC elevation of the left hemidiaphragm with likely combination of atelectasis and pneumonia in the left lower lung zone. CT chest abdomen pelvis without contrast showed consultation in the left lower lobe and lingula likely representing combination of atelectasis and pneumonia with additional more subtle pneumonia in the right middle and lower lungs. Cardiomegaly. Scattered tiny parenchymal calcification at the pancreatic likely sequelae of chronic pancreatitis. Deep sacral decubitus ulcer. Nonspecific stranding in the subcutaneous fat at the right pectoral region. Hosp coarse - Blood cultures were obtained. Nasal MRSA swab was positive. Patient was started on vancomycin, Levaquin and Flagyl. Blood culture 1 of them positive for Staph epidermidis likely contamination. Acute on chronic hypercapnic respiratory failure needing BiPAP support on admission. Stopped and will use p.r.n. Pulmonary on board. Probably related to PNA (aspiration?) and/or tracheal stensis. Multifocal pneumonia - urine antigens ordered. Broad-spectrum antibiotics adjusted after discussion with pharmD ID. Sputum culture contaminated. 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 He states he got some procedure done for this at [facility]. Will get records but no records in chart yet. Soft tissue neck CT showing focal stenosis of the trachea at the site of the prior tracheostomy improved from 07/09/24. Fat stranding seen anterior right upper chest related to ecchymosis. History of tracheostomy 04/02/2024 for failure to wean Status post PEG tube placement on tube feed - continue Status post right BKA Hypertension Peripheral arterial disease Anxiety Coronary artery disease with history of STEMI 02/2024 Paroxysmal Atrial fibrillation with history of electrical cardioversion in the past Diabetic peripheral neuropathy CKD stage 3 Normal sciatic anemia chronic Dyslipidemia Tobacco abuse Hypertension Type 2 diabetes on insulin Diet on tube feeds. Hold off on oral diet and MBS since concern for aspiration DVT prophylaxis Code status full code Improved. Okay to downgrade. Possible discharge tomorrow. Subjective Date/time seen: 08/21/24 14:04 Interval history: 64yo male with CKD, CAD, DM, HTN, PAD and tracheal stenosis here for shortness of breath. Assuming care. Chart reviewed. Patient complains of sore throat for the past 4-5 days. He has having trouble sleeping. No chest pain. Has been feeling shortness of breath. He has been having nausea with vomiting. Has a chalky taste in his mouth. He has a bedside suction and states he has been suctioning whitish sputum. RN has not witnessed overt vomiting. Exam Narrative: AF 98.3 128/100 73 24 97% ra Gen - NARD sitting up in bed Chest - inspiratory and expiratory stridor, scattered inspiratory rhonchi, decreased bibasilar BS L>R -- Right upper chest large land sized dark purple ecchymosis without obvious hematoma. CV - RRR S1/S2. Tele showing sinus arrhythmias Abd - Soft, NT, Gutbe site mild erythema at base without exudate - Ayoub secured draining clear yellow urine Ext - Rt BKA. Left medial and posterior foot dressing clean and dry. no pedal edema Psych - Nml mood and affect Skin - chronic venous stasis skin changes bilateral LE Objective Data Vital Signs Vital Signs: Vital Signs - 24 hr 08/20/24 16:00 08/20/24 16:00 08/20/24 16:00 Temperature 98.0 F Pulse Rate 73 77 77 Respiratory Rate 20 Blood Pressure 153/57 H Pulse Oximetry 97 97 Oxygen Delivery Room Air 08/20/24 18:00 08/20/24 20:00 08/20/24 20:19 Temperature 97.4 F L Pulse Rate 86 88 Respiratory Rate 20 Blood Pressure 115/60 Pulse Oximetry 97 97 Oxygen Delivery Room Air 08/20/24 20:19 08/20/24 20:31 08/20/24 20:37 Temperature Pulse Rate 88 82 83 Respiratory Rate 20 20 28 H Blood Pressure Pulse Oximetry 98 Oxygen Delivery BiPAP 08/20/24 20:56 08/20/24 20:00 08/20/24 23:05 Temperature Pulse Rate 99 68 Respiratory Rate 24 H Blood Pressure Pulse Oximetry 98 98 Oxygen Delivery BiPAP BiPAP 08/20/24 20:00 08/20/24 22:00 08/21/24 00:00 Temperature Pulse Rate 89 71 73 Respiratory Rate Blood Pressure Pulse Oximetry Oxygen Delivery 08/21/24 00:00 08/21/24 00:00 08/21/24 02:00 Temperature 98.7 F Pulse Rate 73 80 Respiratory Rate 20 Blood Pressure 127/49 L Pulse Oximetry 98 100 Oxygen Delivery BiPAP 08/21/24 02:19 08/21/24 02:27 08/21/24 04:00 Temperature 97.8 F Pulse Rate 79 82 82 Respiratory Rate 20 20 18 Blood Pressure 142/73 H Pulse Oximetry 97 Oxygen Delivery 08/21/24 04:00 08/21/24 06:00 08/21/24 04:00 Temperature Pulse Rate 85 94 Respiratory Rate Blood Pressure Pulse Oximetry 96 Oxygen Delivery Room Air 08/21/24 07:52 08/21/24 07:52 08/21/24 08:01 Temperature Pulse Rate 90 84 Respiratory Rate 24 H 24 H Blood Pressure Pulse Oximetry 97 Oxygen Delivery Room Air 08/21/24 07:52 08/21/24 09:06 08/21/24 08:00 Temperature 98.8 F Pulse Rate 88 85 91 Respiratory Rate 24 H Blood Pressure 108/72 Pulse Oximetry 97 Oxygen Delivery 08/21/24 10:00 08/21/24 12:00 08/21/24 12:00 Temperature 98.3 F Pulse Rate 81 71 80 Respiratory Rate 24 H Blood Pressure 128/100 H Pulse Oximetry 97 Oxygen Delivery 08/21/24 13:21 08/21/24 13:30 Temperature Pulse Rate 75 73 Respiratory Rate 24 H 24 H Blood Pressure Pulse Oximetry Oxygen Delivery Intake/Output Intake/Output: Intake & Output 08/18/24 08/19/24 08/20/24 08/21/24 23:59 23:59 23:59 23:59 Intake Total 250 1550 1050 5480 Output Total 1000 1300 1550 650 Balance -750 250 -500 4830 Meds/Results Medications: Active Medications Generic Name Dose Route Start Last Admin Trade Name Freq PRN Reason Stop Dose Admin Acetaminophen 650 mg 08/18/24 14:47 08/21/24 10:34 Acetaminophen Elixir 325 Mg/10.15 Ml Udc FEED TUBE 650 mg Q4H PRN Administration pain or fever Acetylcysteine 200 mg 08/19/24 21:00 08/21/24 07:56 Acetylcysteine 20% Inhal Soln 800 Mg/4 Ml Vial INHALATION Not Given Q12HR RHONDA Albuterol/Ipratropium 3 ml 08/18/24 20:00 08/21/24 13:20 Ipratropium 0.5 Mg/Albuterol Sulfate 2.5 Mg Ampul.Neb 3 Ml NEBULIZE 3 ml Q6HRT RHONDA Administration Amlodipine Besylate 5 mg 08/19/24 09:00 08/21/24 09:06 Amlodipine Besylate 5 Mg Tablet FEED TUBE 5 mg DAILY RHONDA Administration Apixaban 5 mg 08/18/24 17:00 08/21/24 09:05 Apixaban 5 Mg Tablet FEED TUBE 5 mg BID RHONDA Administration Ascorbic Acid 500 mg 08/19/24 09:00 08/21/24 09:05 Ascorbic Acid 500 Mg Tablet PO 500 mg DAILY RHONDA Administration Aspirin 81 mg 08/19/24 08:00 08/21/24 09:05 Aspirin 81 Mg Chewable Tablet FEED TUBE 81 mg DAILY@0800 RHONDA Administration Atorvastatin Calcium 40 mg 08/18/24 21:00 08/20/24 20:56 Atorvastatin 40 Mg Tablet FEED TUBE 40 mg HS RHONDA Administration Bisacodyl 10 mg 08/18/24 14:33 Bisacodyl 10 Mg Suppository RECTAL DAILY PRN Constipation Clopidogrel Bisulfate 75 mg 08/19/24 09:00 08/21/24 09:05 Clopidogrel Bisulfate 75 Mg Tablet FEED TUBE 75 mg QAM RHONDA Administration Dextrose 12.5 gm 08/20/24 13:09 Dextrose 50% 25 Gm/50 Ml Syringe IV PUSH PRN PRN Hypoglycemia Protocol Fluticasone Propionate 2 spray 08/19/24 09:00 08/21/24 09:07 Fluticasone Propionate 0.05% Na Spr 16 Gm Btl (*Bkc) NASAL 2 spray DAILY RHONDA Administration Glucagon 1 mg 08/20/24 13:09 Glucagon For Inj 1 Mg Vial IM PRN PRN Hypoglycemia Protocol Glucose 15 gm 08/20/24 13:09 Glucose Oral Gel 15 Gm Of Glucse In 37.5 Gm Tube PO PRN PRN Hypoglycemia Protocol Metronidazole 500 mg in 100 mls @ 100 mls/hr 08/18/24 18:00 08/21/24 12:49 Flagyl 500 Mg/Iso Soln 100 Ml IVPB 100 mls/hr Q6H RHONDA Administration Levofloxacin/Dextrose 750 mg in 150 mls @ 100 mls/hr 08/18/24 17:00 08/20/24 18:03 Levaquin 750 Mg/D5w 150 Ml IVPB Infused Q24H RHONDA Infusion Vancomycin HCl 1,500 mg in 500 mls @ 250 mls/hr 08/20/24 09:00 08/21/24 04:23 Vancomycin 1,500 Mg/Ns 500 Ml IVPB Infused Q18H RHONDA Infusion Dextrose 1,000 mls @ 100 mls/hr 08/20/24 13:09 Dextrose 5% 1,000 Ml IVPB PRN PRN Hypoglycemia Protocol Insulin Aspart 4 - 8 units 08/18/24 18:00 08/21/24 11:55 Insulin Aspart (*Bkc) 100 Units/Ml SUB-Q Not Given Q6HR RHONDA Protocol Insulin Aspart 8 units 08/20/24 13:10 08/21/24 12:49 Insulin Aspart (*Bkc) 100 Units/Ml SUB-Q 8 units Q6HR RHONDA Administration Insulin Glargine 30 units 08/20/24 21:00 08/21/24 09:12 Insulin Glargine (*Bkc) 100 Units/Ml 0.25 units/kg (30 units) 30 units SUB-Q Administration Q12HR [facility] Lansoprazole 30 mg 08/19/24 09:00 08/21/24 09:05 Lansoprazole Odt 30 Mg Tab.Rap.Dr FEED TUBE 30 mg DAILY RHONDA Administration Magnesium Citrate 296 ml 08/18/24 15:20 Magnesium Citrate 300 Ml Btl PO DAILY PRN Constipation Magnesium Hydroxide 30 ml 08/18/24 15:20 Magnesium Hydroxide Susp 30 Ml Udc PO HS PRN Constipation Meclizine HCl 12.5 mg 08/18/24 15:20 Meclizine Hcl 12.5 Mg Tablet FEED TUBE TID PRN Dizziness Metoprolol Tartrate 25 mg 08/18/24 21:00 08/21/24 09:06 Metoprolol Tartrate 25 Mg Tablet FEED TUBE 25 mg Q12HR RHONDA Administration Miconazole Nitrate 1 applic 08/18/24 17:00 08/21/24 12:49 Miconazole Nitrate 2% Cream 30 Gm Tube TOPICAL 1 applic TID RHONDA Administration Miscellaneous Information 1 each 08/19/24 00:01 08/21/24 11:55 Order Clarification XX 09/18/24 00:00 Not Given CLARIFY [facility] Multivitamins/Calcium 1 tablet 08/19/24 09:00 08/21/24 09:06 Therapeutic Multivitamins/Minerals Tab (*Bkc) PO 1 tablet DAILY RHONDA Administration Non-Formulary Medication 118 ml 08/18/24 15:20 Sodium Phosphates [Fleet Enema] RECTAL ONCE PRN Constipation Oxycodone HCl 5 mg 08/19/24 11:20 08/21/24 10:34 Oxycodone Hcl (*Crx) 5 Mg Tab Ir FEED TUBE 5 mg Q4H PRN Administration Pain, Moderate Polyethylene Glycol 17 gm 08/19/24 09:00 08/21/24 09:07 Polyethylene Glycol 3350 17 Gm Powd.Pack FEED TUBE 17 gm DAILY RHONDA Administration Simethicone 0.6 ml 08/18/24 15:20 Simethicone Oral Suspension 20 Mg/0.3 Ml 30 Ml Bottle FEED TUBE HS PRN GI SPASMS/CRAMPS Sodium Chloride 20 ml 08/18/24 09:43 Central Line Flush IV PUSH PRN PRN after blood draws Sodium Chloride 10 ml 08/18/24 09:43 Central Line Flush IV PUSH PRN PRN with TPN bag changes Sodium Chloride 10 ml 08/18/24 14:00 08/21/24 06:20 Central Line Flush IV PUSH 10 ml Q8HR RHONDA Administration Radiology Results: ITS Impressions Chest/Abdomen/Pelvis CT 08/18/24 09:30 IMPRESSION: 1. Consolidation in the left lower lobe and lingula likely representing combination of atelectasis and pneumonia with additional more subtle pneumonia in the right middle and lower lobes. 2. Cardiomegaly. 3. Scattered tiny parenchymal calcifications at the pancreas likely sequela of chronic pancreatitis. 4. Deep sacral decubitus ulcer. 5. Nonspecific stranding in the subcutaneous fat at the right pectoral region. Correlate clinically for either recent contusion or cellulitis. Soft Tissue Neck CT 08/21/24 11:59 IMPRESSION: 1. Focal stenosis of the trachea at the site of the prior tracheostomy, improved from the CT on 07/09/2024. 2. Fat stranding again seen in anterior right upper chest, likely edema or inflammation. Chest X-Ray 08/21/24 12:44 IMPRESSION: 1. Stable airspace opacities in right lower lung zone and left mid and lower lung zones, likely a combination of pneumonia and atelectasis. 2. Chronic elevation of left hemidiaphragm. 3. Focal stenosis of the trachea at the site of prior tracheostomy. Labs Labs: Laboratory Results - last 24 hr 08/20/24 08/20/24 08/21/24 18:07 23:49 05:44 Creatinine 0.60 L Estim Creat Clear Calc 110 Estimated GFR > 60 POC Capillary Glucose 253 H 154 H 08/21/24 08/21/24 06:18 11:17 Creatinine Estim Creat Clear Calc Estimated GFR POC Capillary Glucose 257 H 188 H
[2024-08-21 17:44] LABS: Glucose Point of Care 243 mg/dl (65-105)
[2024-08-21] MEDS: levoFLOXacin 750 MG TABLET FEED TUBE (17:57)
[2024-08-21 20:01] LABS: Glucose Point of Care 226 mg/dl (65-105)
[2024-08-21] MEDS: DOXYCYCLINE HYCLATE 100 MG TABLET FEED TUBE (20:07)
[2024-08-21] MEDS: ATORVASTATIN 40 MG TABLET FEED TUBE (20:07)
[2024-08-21] MEDS: metroNIDAZOLE 500 MG TABLET FEED TUBE (21:44)
[2024-08-22] VITALS (10 sets, daily range): BP systolic 114–129; BP diastolic 48–69; PULSE 62–88; RESP 19–27; TEMP 36.3–37.2; O2SAT 96–100
[2024-08-22] MEDS: IPRATROPIUM 0.5 MG/ALBUTEROL SULFATE 2.5 MG AMPUL.NEB 3 ML NEBULIZE ×3 (01:01→12:44)
--- NOTE | 2024-08-22 06:00 | PC.NURSE ---
Pt. refused all glucose checks & insulin administration after 0000. Pt. was verbally aggressive with staff members, holding his fist to staff, & threatening staff. Pt. refused to roll over to complete wound care to his DTW but RN managed to apply a dressing.
[2024-08-22] MEDS: ACETYLCYSTEINE 20% INHAL SOLN 800 MG/4 ML VIAL 200 MG INHALATION (06:46)
[2024-08-22] MEDS: CENTRAL LINE FLUSH 10 ML IV PUSH ×2 (06:46→16:40)
[2024-08-22] MEDS: metroNIDAZOLE 500 MG TABLET FEED TUBE ×2 (06:54→13:51)
[2024-08-22] MEDS: ACETAMINOPHEN ELIXIR 325 MG/10.15 ML UDC 650 MG FEED TUBE ×2 (06:55→17:28)
[2024-08-22] MEDS: oxyCODONE HCL (*CRX) 5 MG TAB IR FEED TUBE ×3 (06:55→13:51)
[2024-08-22] MEDS: MICONAZOLE NITRATE 2% CREAM 30 GM TUBE 1 APPLIC TOPICAL ×3 (10:00→19:08)
[2024-08-22] MEDS: INSULIN GLARGINE (*BKC) 100 UNITS/ML 30 UNITS SUB-Q (10:19)
[2024-08-22] MEDS: ASPIRIN 81 MG CHEWABLE TABLET FEED TUBE (10:21)
[2024-08-22] MEDS: ASCORBIC ACID 500 MG TABLET PO (10:22)
[2024-08-22] MEDS: CLOPIDOGREL BISULFATE 75 MG TABLET FEED TUBE (10:23)
[2024-08-22] MEDS: amLODIPine BESYLATE 5 MG TABLET FEED TUBE (10:23)
[2024-08-22] MEDS: APIXABAN 5 MG TABLET FEED TUBE ×2 (10:23→17:27)
[2024-08-22] MEDS: DOXYCYCLINE HYCLATE 100 MG TABLET FEED TUBE (10:24)
[2024-08-22] MEDS: METOPROLOL TARTRATE 25 MG TABLET FEED TUBE (10:24)
[2024-08-22] MEDS: polyethylene glycoL 3350 17 GM POWD.PACK FEED TUBE (10:26)
[2024-08-22] MEDS: THERAPEUTIC MULTIVITAMINS/MINERALS TAB (*BKC) 1 TABLET PO (10:26)
[2024-08-22] MEDS: FLUTICASONE PROPIONATE 0.05% NA SPR 16 GM BTL (*BKC) 2 SPRAY NASAL (10:27)
[2024-08-22] MEDS: LANSOPRAZOLE ODT 30 MG TAB.RAP.DR FEED TUBE (10:35)
--- NOTE | 2024-08-22 11:58 | P.DS_ITS ---
DS: Admitting Diagnosis Discharge Date 08/22/24 Admitting Diagnosis Shortness of breath DS: Discharge Diagnosis Discharge Diagnosis (1) Pneumonia: Code(s): J18.9 - Pneumonia, unspecified organism Status: Acute (2) Respiratory failure: Code(s): J96.90 - Respiratory failure, unspecified, unspecified whether with hypoxia or hypercapnia Status: Acute (3) COPD exacerbation: Code(s): J44.1 - Chronic obstructive pulmonary disease with (acute) exacerbation Status: Acute (4) Decubitus ulcer: Code(s): L89.90 - Pressure ulcer of unspecified site, unspecified stage Status: Acute (5) Hypercapnia: Code(s): R06.89 - Other abnormalities of breathing Status: Acute (6) Hyperglycemia: Code(s): R73.9 - Hyperglycemia, unspecified Status: Acute (7) Elevated troponin: Code(s): R79.89 - Other specified abnormal findings of blood chemistry Status: Acute (8) Paroxysmal A-fib: Code(s): I48.0 - Paroxysmal atrial fibrillation Status: Acute (9) Tracheal stenosis: Code(s): J39.8 - Other specified diseases of upper respiratory tract Status: Acute DS: Summary Hospital Course Reason for hospitalization: 64yo male with CKD, CAD, DM, HTN, PAD and tracheal stenosis here for shortness of breath. Please see H&P for details. Hospital Course: Patient presented with shortness of breath. He was afebrile with stable vitals except for tachypnea. He was initially minimally responsive requiring assisted ventilation by EMS and placed on non-rebreather mask. Influenza, RSV, and COVID PCR was negative. ABG showed 7.21/60/109/24 on NRB mask. He was placed on BiPAP with repeat ABG after BiPAP was 7.47/23/136/17. EKG showed sinus tachycardia with occasional premature ectopic complexes nonspecific ST-T changes. Laboratory evaluation showed WBC of 18K, Hgb 9 and platelet of 233. Potassium was 5.3, creatinine was 0.8 and blood sugar was 585. BNP 3050. Troponin was 0.130 and peaked at 0.186. CT ch/abd/pelvis without contrast showed LLL and lingula consolidation likely representing combination of atelectasis and pneumonia with additional more subtle pneumonia in the right middle and lower lungs; cardiomegaly; scattered tiny parenchymal calcification at the pancreatic likely sequelae of chronic pancreatitis; deep sacral decubitus ulcer; and nonspecific stranding in the subcutaneous fat at the right pectoral region. Blood cultures were obtained and was started on vancomycin, Levaquin and Flagyl. Nasal MRSA swab was positive. Blood culture 1 aerobic bottle only grew Staph epidermidis likely contamination. Bronchodilators started. Pulmonary consulted. We were able to wean him off BiPAP and he was only using BiPAP at night and with naps toward the end of the hospitalization. He is supposed to be on BiPAP at night chronically. Patient with multifocal pneumonia. Urine antigens pending. Concern for aspiration. Weaned to room air. Sputum culture contaminated. Broad- spectrum antibiotics adjusted per pharmD ID. Sacral decubitus ulcer noted. Wound RN consulted and wound care continued here. Patient with chronic tracheal stenosis at the site of his tracheostomy. He states he had some procedure done for this at [facility]. We requested records. Soft tissue neck CT showing focal stenosis of the trachea at the site of the prior tracheostomy improved from 07/09/24. Fat stranding seen anterior right upper chest related to ecchymosis. We continued tube feedings and he remained NPO. He was compliant with BiPAP here. His last CXR showed improvement with stable airspace disease in RLL, LLL and lingula with chronic elevation of the left julieta-diaphragm but improvement in the consolidation. He overall did well and was [facility]. He requested to be discharged to a different facility but care coordination stated that they have tried to find other locations but that no other facility will accept him due to his combative nature. On Plavix, Eliquis and ASA. hx of PAD and CAD with stents but nothing recent (<1yr). ASA stopped. Status at Discharge Cognitive/behavioral status at discharge: stable Time Spent with Patient Time attestation: Total time spent providing and/or coordinating discharge services: 40 minutes Time spent: Greater than 30 minutes Exam Narrative: AF 97.4 114/54 64 24 97% ra Gen - NARD sitting up in bed Chest - inspiratory stridor, scattered rhonchi. Right upper chest dark purple ecchymosis CV - RRR S1/S2. Tele showing no significant dysrhythmias Abd - Soft, NT, GTube site dressing clean and dry - Ayoub secured draining clear yellow urine Ext - Rt BKA. Left medial and posterior foot dressing clean and dry. no pedal edema Psych - Nml mood Skin - chronic venous stasis skin changes LLE DS: Data Data Completed and Pending Labs on day of discharge: Labs from last 24 hours 08/21/24 08/21/24 19:47 17:42 POC Capillary Glucose 226 H 243 H Preliminary micro results at discharge 08/18/24 10:50 Blood Culture - Preliminary Blood Staphylococcus epidermidis 08/18/24 10:51 Blood Culture - Preliminary Blood Discharge Plan Discharge Attending physician on discharge: Toby Andrade Consulting providers: Dany Antoine Discharging Clinician: Toby Andrade Anticipated Discharge Date/Time: 08/22/24 12:47 Patient Disposition: NH Intermediate/Asst Living Activity: as tolerated Diet: NPO, tube feeding and other - see discharge instructions Discharge Instructions: Continue Tube feedings with Vital 1.2 at 70mL/hour with 30mL free water flushes every 4 hours Please check glucose M0licip. Record for the doctor's review. Check blood pressure 1 to 2 times a day. Record for the doctor's review. Continue BiPAP using current settings at night, with naps and as needed when feeling short of breath. Routine oral care Routine GTube care Routine Ayoub care Continue current wound care to the sacral area and left foot/ankle. Rotate patient frequently with patient spending more time with right side down. Take precautions to avoid falls. Rise slowly from a lying or sitting position. Contact the doctor if the patient has fevers or other worrisome symptoms. Avoid NSAIDs (ibuprofen, naproxen, Aleve). Tylenol is safe to take. Follow-up with the provider at the facility. Follow-up with Pulmonology in 3-4 weeks. Please call for an appointment. Thank you for using [facility] for your health care needs. Patient Instructions: Antibiotic Form, Apixaban (By mouth), Pneumonia (DC), BiPAP (GEN), PICC (Peripherally Inserted Central Catheter) (GEN) Stand Alone Forms: General Discharge Information Follow-up/Referrals: Dany Antoine MD [Physician] - Call for Appointment Discharge Medications: New insulin glargine [Lantus U-100 Insulin] 100 unit/mL Solution 30 unit subcut Q12HR Qty: 10 0RF doxycycline hyclate 100 mg Tablet 100 mg feeding tube Q12HR Qty: 6 0RF insulin aspart U-100 [Novolog U-100 Insulin aspart] 100 unit/mL Solution 8 unit subcut Q6HR Qty: 10 0RF metronidazole 500 mg Tablet 500 mg feeding tube Q8HR Qty: 10 0RF levofloxacin 750 mg tablet 750 mg PO 1800 Qty: 3 0RF Continued (DME) insulin syringe-needle U-100 1/2 mL 31 gauge x 15/64 syringe See Rx Instructions .ROUTE .MEDSUPPLY Qty: 90 Rx Instructions: As directed (DME) pen needle, diabetic 31 gauge x 3/16 needle See Rx Instructions .ROUTE .MEDSUPPLY Qty: 30 Rx Instructions: As directed atorvastatin 40 mg tablet 40 mg feeding tube HS acetaminophen 325 mg Tablet 650 mg feeding tube Q4H PRN (Reason: pain or fever) amlodipine 5 mg tablet 5 mg feeding tube DAILY bisacodyl 10 mg Suppository 10 mg RECTAL DAILY PRN (Reason: Constipation) Rx Instructions: if no results from milk of magnesium clopidogrel 75 mg tablet 75 mg feeding tube QAM metoprolol tartrate 50 mg tablet 25 mg feeding tube Q12HR Fleet Enema 19-7 gram/118 mL Enema 118 ml RECTAL ONCE PRN (Reason: Constipation) Rx Instructions: if no results 1 day after suppository ascorbic acid (vitamin C) 500 mg Tablet 500 mg feeding tube DAILY apixaban 5 mg Tablet 5 mg feeding tube BID polyethylene glycol 3350 17 gram Powder In Packet 17 g feeding tube DAILY miconazole nitrate [Micatin] 2 % Cream 1 applic TOPICAL TID meclizine 12.5 mg Tablet 12.5 mg feeding tube TID PRN (Reason: Dizziness) simethicone 40 mg/0.6 mL Drops,Suspension 40 mg feeding tube HS PRN (Reason: Gastrointestinal Spasms Or Cramping) Rx Instructions: Put in 8oz water insulin lispro [Humalog U-100 Insulin] 100 unit/mL Solution See Rx Instructions .ROUTE .COMPLEX Rx Instructions: 181-200=3 units, 201-250=6 units, 251-300=9 units, 301-350=12 units, 351- 400=15 units, 401-999= 18 units and call provider fluticasone propionate 50 mcg/actuation [place],Suspension 2 spray INTRANASAL DAILY Rx Instructions: administer into each nostril lansoprazole [Prevacid SoluTab] 30 mg Tablet,Disintegrat, Delay Rel 30 mg PO DAILY (DME) BD Insulin Syringe (half unit) 0.3 mL 31 gauge x 5/16 syringe See Rx Instructions .ROUTE .MEDSUPPLY Qty: 100 1RF Rx Instructions: As directed (DME) blood-glucose meter Kit See Rx Instructions .ROUTE .MEDSUPPLY Qty: 1 0RF Rx Instructions: Patient test up to 5 times per day Changed oxycodone 5 mg Tablet 5 mg feeding tube Q6H PRN (Reason: Pain, Moderate) Qty: 5 0RF magnesium hydroxide [Milk of Magnesia] 400 mg/5 mL Suspension 30 ml feeding tube HS PRN (Reason: Constipation) Qty: 30 0RF Rx Instructions: if no BM in 3 days ipratropium-albuterol 0.5 mg-3 mg(2.5 mg base)/3 mL solution for nebulization 3 ml INHALATION Q6H PRN (Reason: Shortness Of Breath) Qty: 90 0RF magnesium citrate Solution 296 ml feeding tube DAILY PRN (Reason: Constipation) Qty: 296 0RF Rx Instructions: if no results from enema Held tamsulosin [Flomax] 0.4 mg Capsule 0.4 mg PO DAILY Hold Instructions: Hold - resume when okay with the provider zinc sulfate 220 mg Capsule 220 mg PO DAILY Hold Instructions: Hold - resume when okay with the provider multivit with min-folic acid [Adult One Daily Multivitamin] 0.4 mg Tablet 1 tablet PO DAILY Hold Instructions: Hold - resume when okay with the provider Discontinued insulin glargine 100 unit/mL (3 mL) Insulin Pen 25 unit SUBCUT DAILY aspirin 81 mg tablet,delayed release (DR/EC) 81 mg feeding tube DAILY balsam jordi-castor oil [Venelex] Ointment 1 applic TOPICAL BID Date of admission: 08/18/24 13:11 Primary Care Provider: HalleChan Admitting Provider: Jefferson Kumari Attending physician on admission: Jefferson Kumari Condition: Stable Hospitalist MIPS Heart Failure (Exclusion) Patient has history of Heart Transplant or Left Ventricular Assistive Device?: No IF YES, STOP HERE Heart Failure (Qualifier) Patient has current or prior documentation of LVEF less than or equal to 40%, or mod/servere depressed LVSF?: No IF NO, STOP HERE
[2024-08-22 12:34] LABS: Glucose Point of Care 366 mg/dl (65-105)
[2024-08-22] MEDS: INSULIN ASPART (*BKC) 100 UNITS/ML 8 UNITS SUB-Q ×2 (12:42→19:07)
[2024-08-22] MEDS: INSULIN ASPART (*BKC) 100 UNITS/ML SUB-Q ×2 (12:43→19:08)
[2024-08-22] MEDS: levoFLOXacin 750 MG TABLET FEED TUBE (17:28)
[2024-08-22 17:35] LABS: Glucose Point of Care 206 mg/dl (65-105)
[2024-08-22 18:09] LABS: Pneumococcal Antigen Urine NOT DETECTED
--- NOTE | 2024-08-22 20:11 | PC.NURSE ---
[facility] arrived to transfer the pt. back to [facility] at 194. Report was made to EMS & [facility] was notified of his ETA to facility.
[2024-08-24 18:28] LABS: Mycoplasma IgM Antibody Titer 100 U/mL
[2024-08-24 22:09] LABS: Legionella pneumophila Ag Ur NOT DETECTED
--- NOTE | 2024-08-26 10:05 | PC.NURSE ---
Urine legionella and pneumococcal are both not detected. Mycoplasm is WNL at 100. Dr. Lupe hatfield.
== END 2024-08-22 20:00 | DRG 139 ==
LOC: ANHED 11:05 → ANHIMU 11:53
PROVIDERS: Emergency Medicine; Admitting Provider Internal Medicine; Emergency Provider Emergency Medicine; PCP Internal Medicine; Visit Provider Internal Medicine
DX: J18.9 Pneumonia, unspecified organism (principal); J96.22 Acute and chronic respiratory failure with hypercapnia; J44.1 Chronic obstructive pulmonary disease with (acute) exacerbation; J44.0 Chronic obstructive pulmonary disease with (acute) lower respiratory infection; I48.0 Paroxysmal atrial fibrillation; J39.8 Other specified diseases of upper respiratory tract; I25.10 Atherosclerotic heart disease of native coronary artery without angina pectoris; I12.9 Hypertensive chronic kidney disease with stage 1 through stage 4 chronic kidney disease, or unspecified chronic kidney disease; E11.22 Type 2 diabetes mellitus with diabetic chronic kidney disease; E11.42 Type 2 diabetes mellitus with diabetic polyneuropathy; N18.30 Chronic kidney disease, stage 3 unspecified; I73.9 Peripheral vascular disease, unspecified; K21.9 Gastro-esophageal reflux disease without esophagitis; Z20.822 Contact with and (suspected) exposure to COVID-19; W06.XXXA Fall from bed, initial encounter; Z79.4 Long term (current) use of insulin; F90.9 Attention-deficit hyperactivity disorder, unspecified type; Z95.5 Presence of coronary angioplasty implant and graft; E78.5 Hyperlipidemia, unspecified; I25.2 Old myocardial infarction; Z95.820 Peripheral vascular angioplasty status with implants and grafts; Z89.511 Acquired absence of right leg below knee; Z87.891 Personal history of nicotine dependence; E11.65 Type 2 diabetes mellitus with hyperglycemia; Z86.718 Personal history of other venous thrombosis and embolism; Z93.1 Gastrostomy status
CPT/HCPCS: 36415; 36569; 36600; 70490; 71045; 71250; 74176; 80053; 80202; 81001; 82375; 82565; 82805; 82948; 83036; 83050; 83605; 83690; 83735; 83880; 84145; 84484; 85018; 85025; 85027; 85610; 85730; 86738; 87040; 87070; 87181; 87205; 87449; 87637; 87641; 87899; 93005; 94002; 94003; 94640; 96374; 96375; 99285; A9270; C1751; G0378; G0379; J1815; J1836; J1956; J3370; J7030

== ENCOUNTER 2024-09-05 15:01 | Inpatient (IN) | payer BC, SELFPAY ==
[2024-09-05] VITALS (13 sets, daily range): BP systolic 119–174; BP diastolic 57–76; PULSE 86–106; RESP 12–25; TEMP 36.5–36.9; O2SAT 99–100; BMI 32.3
--- NOTE | ~2024-09-05 | XR_ITS ---
EXAMINATION: XR chest ET placement, XR abdomen gastric tube insert DATE: 09/05/2024 15:32 INDICATION: Endotracheal tube placement. Nasogastric tube placement TECHNIQUE: 1. Frontal view of the chest was obtained. 2. AP supine view of the abdomen was obtained. COMPARISON: Chest radiograph dated 08/31/2024 FINDINGS: Chest: Endotracheal tube tip 4.3 cm above the vanessa. Unchanged elevation of the left hemidiaphragm. There i s improvement in aeration at the left lung base with some persistent airspace opacities in the perihi lar left mid to lower lung. Diffuse mild increased interstitial pattern in both lungs consistent with mild pulmonary edema. No pleural effusion or pneumothorax. Heart size is normal. Abdomen: Nasogastric tube tip in proximal side port in the body of the stomach. There is also the bulb of a pe rcutaneous gastrostomy tube in the body the stomach near the tip of the nasogastric tube. There is so me gas and stool in the visualized colon. No dilated loops of gas-filled bowel. IMPRESSION: 1. Endotracheal tube and nasogastric tube in expected positions. 2. Mild increased interstitial pattern in the lungs suggesting mild pulmonary edema. 3. Opacities in the left mid and lower lung zone with improved aeration at the left lung base consist ent with decreasing atelectasis and/or pneumonia. Reviewed, dictated and finalized at location A. IMPRESSION: 1. Endotracheal tube and nasogastric tube in expected positions. 2. Mild increased interstitial pattern in the lungs suggesting mild pulmonary e teresa. 3. Opacities in the left mid and lower lung zone with improved aeration at the left lung base consistent with decreasing atelectasis and/or pneumonia.
--- NOTE | ~2024-09-05 | CT_ITS ---
EXAMINATION: CT brain wo con DATE: 09/05/2024 16:38 INDICATION: Status post cardiac arrest TECHNIQUE: Computed tomography (CT) of the head was performed without intravenous contrast. Sagittal and coronal reconstructions were performed. The mA was adjusted according to patient size. Iterative reconstruction technique was employed. The dose-length product was 1362.00 mGy-cm. COMPARISON: head CT dated 03/27/2024 FINDINGS: Unchanged small focus of encephalomalacia in the posterior left frontal lobe consistent with sequela of chronic infarct. Additional unchanged small old lacunar infarct at the posterior limb of the right internal capsule. No acute intracranial hemorrhage, acute infarction or abnormal extra axial fluid c ollection. There is mild scattered white matter hypoattenuation consistent with chronic small vessel ischemic disease. Ventricles are normal and symmetric. No mass/mass effect. Interval decrease in now very small bilateral mastoid effusions. Middle ear cavities and paranasal sinuses are clear. The orb its are normal. Mucosal thickening in the bilateral sphenoid sinuses. Orogastric tube and endotrachea l tube extends through the oral cavity. Intracranial calcified cerebral atherosclerosis is noted. Lik lakia developmentally unfused posterior ring of C1. IMPRESSION: 1. 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 No a cute intracranial process. Reviewed, dictated and finalized at location A. IMPRESSION: 1. 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 No acute intracranial process.
--- NOTE | 2024-09-05 15:05 | ECG_ITS ---
Test Date: 2024-09-05 15:05:25 Measurements Intervals [place] Rate: 104 P: 65 W[place]: 169 QRS: 38 QRSD: 110 T: 126 QT: 332 QTc: 437 Interpretive Statements SINUS TACHYCARDIA INFERIOR MYOCARDIAL INFARCTION , PROBABLY OLD [40+ ms Q WAVE AND/OR ST/T ABNORMALITY IN II/aVF] ANTEROLATERAL MYOCARDIAL INFARCTION , OF INDETERMINATE AGE [40+ ms Q WAVE IN I/aVL/V3-V6] Compared to ECG 08/18/2024 06:56:55 No significant changes Electronically Signed On 09-05-2024 15:33:40 CDT by Belle Baker M.D.
--- NOTE | 2024-09-05 15:13 | ED.GENADULT ---
HPI - General Adult General Chief complaint: Recheck/Abnormal Lab/Rx Stated complaint: ams Time Seen by Provider: 09/05/24 15:12 Source: EMS Mode of arrival: EMS History of Present Illness HPI narrative: patient came to the ED by ambulance, ambu bag ventilation in process Patient was in his normal health condition 20 minutes before found unresponsive, pulseless, not breathing. CPR started for 5 minutes, EMT arrived, patient is responsive to painful stimulation, hypoxic running in the 80s on Ambu bag. No family member at the bedside on arrival to the ED Related Data Home Medications Medication Instructions Recorded Confirmed insulin syringe-needle U-100 11/14 #90 ea 03/05/20 08/18/24 mL 31 gauge x 15/64 pen needle, diabetic 31 gauge x #30 ea 03/05/20 08/18/24/16 sodium phosphates 19 gram-7 118 ml RECTAL ONCE PRN Constipation 03/04/24 08/18/24 gram/118 mL enema (Fleet Enema) acetaminophen 325 mg tablet 650 mg feeding tube Q4H PRN pain 07/08/24 08/18/24 or fever amlodipine 5 mg tablet 5 mg feeding tube DAILY 07/08/24 08/18/24 atorvastatin 40 mg tablet 40 mg feeding tube HS 07/08/24 08/18/24 bisacodyl 10 mg rectal suppository 10 mg RECTAL DAILY PRN Constipation 07/08/24 08/18/24 clopidogrel 75 mg tablet 75 mg feeding tube QAM 07/08/24 08/18/24 metoprolol tartrate 50 mg tablet 25 mg feeding tube Q12HR 07/08/24 08/18/24 apixaban 5 mg tablet 5 mg feeding tube BID 08/18/24 08/18/24 ascorbic acid (vitamin C) 500 mg 500 mg feeding tube DAILY 08/18/24 08/18/24 tablet fluticasone propionate 50 2 spray intranasal DAILY 08/18/24 08/18/24 mcg/actuation nasal spray,suspension insulin lispro 100 unit/mL See Rx Instructions .Route .COMPLEX 08/18/24 08/18/24 subcutaneous solution (Humalog U-100 Insulin) lansoprazole 30 mg delayed 30 mg PO DAILY 08/18/24 08/18/24 release,disintegrating tablet (Prevacid SoluTab) meclizine 12.5 mg tablet 12.5 mg feeding tube TID PRN 08/18/24 08/18/24 Dizziness miconazole nitrate 2 % topical 1 applic topical TID 08/18/24 08/18/24 cream (Micatin) multivitamin with minerals-folic 1 tablet PO DAILY 08/18/24 08/18/24 acid 0.4 mg tablet polyethylene glycol 3350 17 gram 17 g feeding tube DAILY 08/18/24 08/18/24 oral powder packet simethicone 40 mg/0.6 mL oral 40 mg feeding tube HS PRN 08/18/24 08/18/24 drops,suspension Gastrointestinal Spasms Or Cramping tamsulosin 0.4 mg capsule (Flomax) 0.4 mg PO DAILY 08/18/24 08/18/24 zinc sulfate 220 mg capsule 220 mg PO DAILY 08/18/24 08/18/24 Allergies Allergy/AdvReac Type Severity Reaction Status Date / Time amoxicillin Allergy Severe shortness Verified 09/05/24 18:53 of breath Penicillins Allergy Severe Anaphylactic Verified 09/05/24 18:53 Shock trimethoprim Allergy Intermediate Unknown Verified 09/05/24 18:53 latex Allergy Unknown Unknown Verified 09/05/24 18:53 sulfamethoxazole Allergy Unknown Unknown Verified 09/05/24 18:53 cefuroxime Allergy Unknown Verified 09/05/24 18:53 cephalexin Allergy Unknown Verified 09/05/24 18:53 clindamycin Allergy Unknown Verified 09/05/24 18:53 gabapentin Allergy Unknown Verified 09/05/24 18:53 Review of Systems Review of Systems: ROS unobtainable: Yes unobtainable due to medical condition PMFSH Past Medical History Medical History ADHD (attention deficit hyperactivity disorder) Cellulitis of both feet Chronic kidney disease, stage 3 Baseline creatinine between 1.5 and 1.60. Chronic pain syndrome On long-term opiates. Coronary artery disease With history of stents. Degenerative disc disease Diabetic foot infection Gangrene of toe of right foot GERD (gastroesophageal reflux disease) History of DVT of lower extremity Hospital discharge follow-up Hyperlipidemia Hypertension Insulin dependent type 2 diabetes mellitus Myocardial infarction Osteoarthritis Peripheral arterial disease Status post right lower extremity revascularization per Dr. Altman. Shortness of breath on exertion Tobacco abuse Surgical History Surgical History H/O cardiac catheterization History of left-sided carotid endarterectomy History of revascularization procedure of lower extremity Right lower extremity angioplasty and stent per Dr. Hurt. Hx of right BKA Tracheostomy status Placed on 04/01/2024 due to prolonged intubation status post STEMI Family History Family History Father , age 91 CAD Acute myocardial infarction Mother , age 85 CVA Cerebrovascular accident Other Family history of arthritis Family history of cardiovascular disease Family history of chronic obstructive pulmonary disease Family history of mental disorder Hypertension Social History Social History Social History: The patient is currently at [facility]. He designates his cousin Jaskaran Carr as his surrogate decision-maker and he wishes to be a full code. 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 He smokes between 5 and 20 cigarettes and 20 cigarettes/day. No drug use. He has no children. He has never been . Smoking packs per day: 3 Smoking cigarettes per day: 60.0 Years smoked: 44 Smoking pack-years: 132.00 Smoking status: Unknown if ever smoked Tobacco type: cigarettes Second hand tobacco smoke exposure: No Additional smoking assessment comments: patient stated i smoke one cigar every 6 hours Alcohol intake: never Substance use: former Substance use type: marijuana Other substance usage details: [facility]; used for pain Last use: 03/16/2020 Do You Feel Safe in your Home?: Yes Lack of Transportation: YES Lack of Food: Never True Current Housing: I Do Not Have Housing Concerned About Future Housing: YES Difficulty Paying Gas/Electric Bills: YES Difficulty Paying for Meds: No Currently Unemployed: No Education: Bachelor's Degree Difficulty w/ Childcare or Family Care: No Gender identity (if verbalized by the patient): Male Spiritual care concerns: No Agree to blood products: Yes Exam Narrative: General appearance: Well-developed, well-nourished, agonal breathing Skin: Normal color Head: Normocephalic, nontraumatic Eyes: Clear conjunctiva ENT: Dry oral cavity, tracheostomy scar Neck: no mass or lymphadenopathy or bruises Chest and respiratory: Airway patent, no respiratory distress, no accessory muscle use Heart: Regular rate/rhythm Abdomen: Soft, nontender, no organomegaly, quiet bowel sounds, feeding tube in place Musculoskeletal: right below-knee amputation Neurologic: responsive to painful stimulation Course Consultations Consultation #1: Dr. MAGAÑA ADMIT TO ICU Date: 09/05/24 Vital Signs Vital signs: Vital Signs Pulse Rate 106 H 09/05/24 14:59 Respiratory Rate 20 09/05/24 14:59 Blood Pressure 174/76 H 09/05/24 14:59 Pulse Oximetry 100 09/05/24 14:59 Oxygen Delivery Bag Valve Mask 09/05/24 14:59 Temperature 36.9 C 09/05/24 16:47 Pulse Rate 92 09/05/24 17:29 Respiratory Rate 16 09/05/24 17:29 Blood Pressure 125/59 L 09/05/24 16:43 Pulse Oximetry 100 09/05/24 16:45 Oxygen Delivery Mechanical Ventilation 09/05/24 16:45 Fraction of Inspired Oxygen 60 09/05/24 16:45 Procedures Intubation Intubation #1: Intubation Date: 09/05/24 Time out performed: Yes (5) sedative: Versed Mg Given: 4 paralytic: Succinylcholine Mg Given: 100 Laryngoscope: fiber optic video scope Tube Size (cm): 7.5 Method of Intubation: orotracheal Number of Attempts: 1 Tube Placement Confirmation: visualized tube passing through cords, equal breath sounds bilaterally and no breath sounds over epigastrium Patient Tolerated Procedure: well Intubation Complications: none Medical Decision Making MDM Narrative Medical decision making narrative: PATIENT CAME TO THE ED FROM [facility] BY AMBULANCE STATUS POST CARDIAC ARREST VITAL SIGNS ON ARRIVAL SHOWED BLOOD PRESSURE 174/76, HEART RATE OF 106, OXYGEN 100% ON BAG-VALVE MASK PHYSICAL EXAMINATION SHOWING AGONAL BREATHING, RESPONSIVE TO PAINFUL STIMULATION, IO LEFT LOWER LEG PATIENT GOT INTUBATED, PATIENT IS HARD STICK, CT HEAD SHOWED NO ACUTE ABNORMALITY CHEST X-RAY SHOWED POSSIBLE MILD PULMONARY EDEMA, PNEUMONIA PATIENT'S SISTER LYNDSEY MAE, ,CHANGE CODE STATUS TO COMFORT MEASURES ONLY. AND REQUESTED THAT PATIENT CAN BE EXTUBATED, NO FURTHER LABS OR IMAGING ARE REQUIRED AT THIS TIME. . THE HOSPITALIST WAS NOTIFIED,. Vital Signs Vital Signs: Vital Signs Pulse Rate 106 H 09/05/24 14:59 Respiratory Rate 20 09/05/24 14:59 Blood Pressure 174/76 H 09/05/24 14:59 Pulse Oximetry 100 09/05/24 14:59 Oxygen Delivery Bag Valve Mask 09/05/24 14:59 Temperature 36.9 C 09/05/24 16:47 Pulse Rate 92 09/05/24 17:29 Respiratory Rate 16 09/05/24 17:29 Blood Pressure 125/59 L 09/05/24 16:43 Pulse Oximetry 100 09/05/24 16:45 Oxygen Delivery Mechanical Ventilation 09/05/24 16:45 Fraction of Inspired Oxygen 60 09/05/24 16:45 Lab Data Labs: Lab Results 09/05/24 Range/Units 16:02 Urine Color Yellow (Yellow) Urine Appearance Clear (Clear) Urine pH 5.0 (5.0-9.0) Ur Specific [place] 1.021 (1.001-1.035) Urine Protein 2+ H (Negative) mg/dL Urine Glucose (UA) 3+ H (Negative) mg/dL Urine Ketones Negative (Negative) mg/dL Ur Blood (Man) Negative (Negative) Urine Nitrate Negative (Negative) Urine Bilirubin Negative (Negative) Urine Urobilinogen 0.2 (<2.0) mg/dL Add Ur Microanalysis Reviewed Leukocyte Esterase Rfl Trace H (Negative) CHERYL/UL Urine RBC 0-2 (0-2) /hpf Urine WBC 11-20 H (0-3) /hpf Ur Squamous Epith Cells None seen (Few) /hpf Urine Bacteria None seen /hpf Urine Casts >20 Hyaline Casts Present (None) /lpf Urine Yeast (Budding) Present H (None) /hpf Imaging Data Radiologist's impression: Impressions Abdomen X-Ray 09/05/24 15:34 IMPRESSION: 1. Endotracheal tube and nasogastric tube in expected positions. 2. Mild increased interstitial pattern in the lungs suggesting mild pulmonary edema. 3. Opacities in the left mid and lower lung zone with improved aeration at the left lung base consistent with decreasing atelectasis and/or pneumonia. Chest X-Ray 09/05/24 15:34 IMPRESSION: 1. Endotracheal tube and nasogastric tube in expected positions. 2. Mild increased interstitial pattern in the lungs suggesting mild pulmonary edema. 3. Opacities in the left mid and lower lung zone with improved aeration at the left lung base consistent with decreasing atelectasis and/or pneumonia. Head CT 09/05/24 16:54 IMPRESSION: 1. 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 No acute intracranial process. Critical Care Time Critical Care Time Critical Care Time: Yes Total Critical Care Time: 30 Discharge Plan Discharge Clinical Impression: Acute hypoxemic respiratory failure, Comfort measures only status Patient Disposition: Hospice [facility] Inpatient Condition: Terminal
[2024-09-05] MEDS: SUCCINYLCHOLINE CHLORIDE 20 MG/ML 10 ML VIAL 100 MG IV PUSH (15:33)
[2024-09-05] MEDS: MIDAZOLAM HCL (*CRX) 2 MG/2 ML VIAL 4 MG IV PUSH (15:33)
[2024-09-05] MEDS: MIDAZOLAM HCL (*CRX) 2 MG/2 ML VIAL IV PUSH ×2 (15:38→15:40)
[2024-09-05] MEDS: FENTANYL 2,500MCG/NS250ML(*CRX 2,500 MCG/250 ML BAG 10 MCG IV CONT (16:14)
[2024-09-05] MEDS: MIDAZOLAM 100MG/NS 100ML(*CRX) 100 MG/100 ML BAG IV CONT (16:15)
[2024-09-05 16:25] LABS: Add Urine Microscopic? YES; Appearance Urine Clear (Clear); Bacteria Urine None Seen /hpf; Bilirubin Urine Negative (Negative); Blood Urine Negative (Negative); Budding Yeast Urine Present /hpf; Color Urine Yellow (Yellow); Glucose Urine UA 3+ mg/dL (Negative); Hyaline Casts Urine Present /lpf; Ketones Urine Negative (Negative); Leukocyte Esterase Ur Trace LEU/UL (Negative); Need Manual Microscopic Reviewed; Nitrate Urine Negative (Negative); Non Pathogenic Casts >20; Protein Urine 2+ mg/dL (Negative); RBC Urine 0-2 /hpf (0-2); Specific Grav Ur 1.021 (1.001-1.035); Squamous Epithelial Cell Urine None Seen /hpf (Few); Urobilinogen Urine 0.2 mg/dL (<2.0)
--- NOTE | 2024-09-05 16:50 | PC.NURSE ---
This typewriter aligner was witness and verified with sister of the pt (Ana) that the pt should be placed on Hospice/Comfort measures
[2024-09-05] MEDS: MORPHINE SULFATE (*CRX) 2 MG/ML INJ IV PUSH ×3 (17:23→23:07)
--- NOTE | 2024-09-05 17:23 | PC.NURSE ---
DELL from [facility] for Morphine 2mg and Ativan 1 mg IVP x1 for comfort measures
[2024-09-05] MEDS: LORazepam INJ (*CRX) 2 MG/ML VIAL 1 MG IV PUSH ×2 (17:26→20:42)
--- NOTE | 2024-09-05 18:35 | ADMGEN ---
This patient, Noel Rodriguez, was admitted to Medical Room 255-. Patient/family oriented to hospital policies and general routines including ID bracelet, bed and alarms, visiting hours, pain management, procedures, bathroom and other care routines, personal items, smoking policy, room service/diet, and visiting hours. Information on how to activate the Rapid Response Team has been discussed. Patient/Family are encouraged to report perceived risks to care and to ask questions if they do not understand what they are told or what they should do.
--- NOTE | 2024-09-05 18:41 | P.HP_ITS ---
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 It was reported to EMS that patient was his normal health condition 20 minutes prior to being found unresponsive. CPR was given in the field for 5 minutes before achieving ROSC. Upon arrival to the emergency room patient was responsive to painful stimuli however was hypoxic with SpO2 readings in the 80's. He was then ventilated with 100% bag mask ventilation and intubated successfully in the emergency room. He was then started on fentanyl and Versed. workup in the ER included a head CT which showed small old infarcts in the left frontal lobe and posterior limb of the right internal capsule, no acute intracranial process. Chest x-ray and abdominal x-ray showed ET tube and nasogastric tube in expected position, mild increased interstitial patterns in the lungs suggesting mild pulmonary edema, opacities in the left mid and lower lung zone with improved aeration at the left lung base consistent with decreasing atelectasis. a UA was obtained which showed 2+ urine protein, 3+ urine glucose, trace leukocyte, 11-20 urine wbc's, greater than 20 urine cast, yeast present. No other labs were obtained in the emergency room. Urine culture was obtained and pending. EKG showed sinus tachycardia with inferior myocardial infarction which was probably old with a rate of 104, QTC 437. Dr. Prdie initially reached out to Dr. Patiño who is the cartridge assembler for the possible need of hypothermia protocol however patient was somewhat responsive to painful stimuli and was deemed not necessary. Dr. Patiño then reached out to me regarding this patient as he was unaware of the patient's history of tracheal stenosis and had concerns that the patient would need to be transferred to [place] due to the possibility of a difficult extubation as we do not have ENT coverage here at [place]. Dr. Pride the ER physician reached out to patient's sister Ana Nelson who is the next of kin about his condition and code status. After that conversation, Ana decided to make him DNR/DNI and comfort measures only per Dr. Pride. Considering that the patient has a history tracheal stenosis and was intubated in the emergency room, I made a 2nd phone call to Ana who is the patient's sister to verify that she understands the difference between comfort measures and active treatment as he would need to be transferred to [place] if she were to want active treatment provided for him. Ana stated that she did understand and would still like to proceed with comfort measures only including extubation at this time and placing him on medications to keep him comfortable. She did say that she is unable to be there in person to discuss end of life care as she lives in [facility] and there are no family members that live close by. Patient was then extubated in the emergency room, fentanyl and Versed were stopped, He was given a dose Ativan and morphine, and than sent to inpatient floor on full comfort measures. Patient was unresponsive at time of exam and was only able to open eyes briefly to voice, agonal breath pattern noted. Of note, patient was recently discharged on 08/22/2024 after being treated for acute respiratory failure due to multifocal pneumonia and was started on vancomycin, Levaquin, and Flagyl while inpatient. Pulmonology was consulted and assisted with care during that hospitalization. He was requiring BiPAP support initially and was weaned to room air with BiPAP at night. His condition improved and [facility] with continued antibiotics Flagyl, doxycycline, and Levaquin. Patient was instructed to follow up with his provider at the facility and also with pulmonology in 3-4 weeks for follow-up. Review of Systems Review of Systems: ROS unobtainable: Yes unobtainable due to medical condition and unobtainable due to mental status [facility] Past Medical History Medical History ADHD (attention deficit hyperactivity disorder) Cellulitis of both feet Chronic kidney disease, stage 3 Baseline creatinine between 1.5 and 1.60. Chronic pain syndrome On long-term opiates. Coronary artery disease With history of stents. Degenerative disc disease Diabetic foot infection Gangrene of toe of right foot GERD (gastroesophageal reflux disease) History of DVT of lower extremity Hospital discharge follow-up Hyperlipidemia Hypertension Insulin dependent type 2 diabetes mellitus Myocardial infarction Osteoarthritis Peripheral arterial disease Status post right lower extremity revascularization per Dr. Altman. Shortness of breath on exertion Tobacco abuse Surgical History Surgical History H/O cardiac catheterization History of left-sided carotid endarterectomy History of revascularization procedure of lower extremity Right lower extremity angioplasty and stent per Dr. Hurt. Hx of right BKA Tracheostomy status Placed on 04/01/2024 due to prolonged intubation status post STEMI Family History Family History Father , age 91 CAD Acute myocardial infarction Mother , age 85 CVA Cerebrovascular accident Other Family history of arthritis Family history of cardiovascular disease Family history of chronic obstructive pulmonary disease Family history of mental disorder Hypertension Social History Social History Social History: The patient is currently at [facility]. He designates his cousin Jaskaran Carr as his surrogate decision-maker and he wishes to be a full code. 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 He smokes between 5 and 20 cigarettes and 20 cigarettes/day. No drug use. He has no children. He has never been . Smoking packs per day: 3 Smoking cigarettes per day: 60.0 Years smoked: 44 Smoking pack-years: 132.00 Smoking status: Unknown if ever smoked Tobacco type: cigarettes Second hand tobacco smoke exposure: No Additional smoking assessment comments: patient stated i smoke one cigar every 6 hours Alcohol intake: unknown Substance use: unknown Substance use type: marijuana Other substance usage details: once a month before [facility] admission; used for pain Last use: 03/16/2020 Do You Feel Safe in your Home?: Yes Lack of Transportation: YES Lack of Food: Never True Current Housing: I Do Not Have Housing Concerned About Future Housing: YES Difficulty Paying Gas/Electric Bills: YES Difficulty Paying for Meds: No Currently Unemployed: No Education: Bachelor's Degree Difficulty w/ Childcare or Family Care: No Gender identity (if verbalized by the patient): Male Spiritual care concerns: No Agree to blood products: Yes Meds Home Medications and Allergies Home Medications Medication Instructions Recorded Confirmed Type insulin syringe-needle U-100 11/14 #90 ea 03/05/20 09/05/24 History mL 31 gauge x 15/64 pen needle, diabetic 31 gauge x #30 ea 03/05/20 09/05/24 History 3/16 blood-glucose meter #1 ea 04/23/20 09/05/24 Rx sodium phosphates 19 gram-7 118 ml RECTAL ONCE PRN Constipation 03/04/24 09/05/24 History gram/118 mL enema (Fleet Enema) acetaminophen 325 mg tablet 650 mg feeding tube Q4H PRN pain 07/08/24 09/05/24 History or fever amlodipine 5 mg tablet 5 mg feeding tube DAILY 07/08/24 09/05/24 History atorvastatin 40 mg tablet 40 mg feeding tube HS 07/08/24 09/05/24 History bisacodyl 10 mg rectal suppository 10 mg RECTAL DAILY PRN Constipation 07/08/24 09/05/24 History clopidogrel 75 mg tablet 75 mg feeding tube QAM 07/08/24 09/05/24 History metoprolol tartrate 50 mg tablet 25 mg feeding tube Q12HR 07/08/24 09/05/24 History apixaban 5 mg tablet 5 mg feeding tube BID 08/18/24 09/05/24 History ascorbic acid (vitamin C) 500 mg 500 mg feeding tube DAILY 08/18/24 09/05/24 History tablet fluticasone propionate 50 2 spray intranasal DAILY 08/18/24 09/05/24 History mcg/actuation nasal spray,suspension insulin lispro 100 unit/mL See Rx Instructions .Route .COMPLEX 08/18/24 09/05/24 History subcutaneous solution (Humalog U-100 Insulin) lansoprazole 30 mg delayed 30 mg PO DAILY 08/18/24 09/05/24 History release,disintegrating tablet (Prevacid SoluTab) meclizine 12.5 mg tablet 12.5 mg feeding tube TID PRN 08/18/24 09/05/24 History Dizziness miconazole nitrate 2 % topical 1 applic topical TID 08/18/24 09/05/24 History cream (Micatin) multivitamin with minerals-folic 1 tablet PO DAILY 08/18/24 09/05/24 History acid 0.4 mg tablet polyethylene glycol 3350 17 gram 17 g feeding tube DAILY 08/18/24 09/05/24 History oral powder packet simethicone 40 mg/0.6 mL oral 40 mg feeding tube HS PRN 08/18/24 09/05/24 History drops,suspension Gastrointestinal Spasms Or Cramping tamsulosin 0.4 mg capsule (Flomax) 0.4 mg PO DAILY 08/18/24 09/05/24 History zinc sulfate 220 mg capsule 220 mg PO DAILY 08/18/24 09/05/24 History doxycycline hyclate 100 mg tablet 100 mg feeding tube Q12HR #6 tabs 08/22/24 09/05/24 Rx insulin aspart U-100 100 unit/mL 8 unit (0.08 mL) subcut Q6HR #10 mL 08/22/24 09/05/24 Rx subcutaneous solution (Novolog U-100 Insulin aspart) insulin glargine 100 unit/mL 30 unit (0.3 mL) subcut Q12HR #10 08/22/24 09/05/24 Rx subcutaneous solution (Lantus mL U-100 Insulin) ipratropium 0.5 mg-albuterol 3 mg 3 ml inhalation Q6H PRN Shortness 08/22/24 09/05/24 Rx (2.5 mg base)/3 mL nebulization Of Breath #90 mL soln magnesium citrate 296 ml feeding tube DAILY PRN 08/22/24 09/05/24 Rx Constipation #296 mL magnesium hydroxide 400 mg/5 mL 30 ml feeding tube HS PRN 08/22/24 09/05/24 Rx oral suspension (Milk of Magnesia) Constipation #30 mL oxycodone 5 mg tablet 5 mg feeding tube Q6H PRN Pain, 08/22/24 09/05/24 Rx Moderate #5 tabs insulin syr/ndl U100 half liz 0.3 09/05/24 09/05/24 History mL 31 gauge x 03/28 Allergies Allergy/AdvReac Type Severity Reaction Status Date / Time amoxicillin Allergy Severe shortness Verified 09/05/24 18:53 of breath Penicillins Allergy Severe Anaphylactic Verified 09/05/24 18:53 Shock trimethoprim Allergy Intermediate Unknown Verified 09/05/24 18:53 latex Allergy Unknown Unknown Verified 09/05/24 18:53 sulfamethoxazole Allergy Unknown Unknown Verified 09/05/24 18:53 cefuroxime Allergy Unknown Verified 09/05/24 18:53 cephalexin Allergy Unknown Verified 09/05/24 18:53 clindamycin Allergy Unknown Verified 09/05/24 18:53 gabapentin Allergy Unknown Verified 09/05/24 18:53 Vital Signs Vital Signs - 24 hr 09/05/24 14:59 09/05/24 15:20 09/05/24 15:40 Temperature 97.9 F Pulse Rate 106 H 105 H 99 Respiratory Rate 20 22 H Blood Pressure 174/76 H 119/64 Pulse Oximetry 100 100 Oxygen Delivery Bag Valve Mask Mechanical Ventilation Fraction of Inspired Oxygen 80 09/05/24 15:47 09/05/24 15:56 09/05/24 16:14 Temperature 98.2 F Pulse Rate 100 95 Respiratory Rate 25 H 19 20 Blood Pressure 129/57 L Pulse Oximetry 99 Oxygen Delivery Fraction of Inspired Oxygen 09/05/24 16:15 09/05/24 16:41 09/05/24 16:43 Temperature 98.4 F Pulse Rate 93 89 89 Respiratory Rate 14 18 19 Blood Pressure 125/59 L Pulse Oximetry 100 Oxygen Delivery Fraction of Inspired Oxygen 09/05/24 16:47 09/05/24 16:45 09/05/24 17:29 Temperature 98.4 F Pulse Rate 86 93 Respiratory Rate 17 Blood Pressure Pulse Oximetry 100 Oxygen Delivery Mechanical Ventilation Fraction of Inspired Oxygen 60 09/05/24 17:29 Temperature Pulse Rate 92 Respiratory Rate 16 Blood Pressure Pulse Oximetry Oxygen Delivery Fraction of Inspired Oxygen Exam Narrative: General:Chronically ill appearance, well nourished Head: atraumatic, midline Eyes: PERRLA, sclera injected ENT: dry pale mucous membranes, nasal passages clear Neck: supple, no JVD, no adenopathy, trachea midline, old tracheostomy scar Cardiac: Normal S1 and S2. No murmur, gallops or friction rubs, peripheral pulses intact. Respiratory: Agonal breath pattern, expiratory wheeze noted bilaterally, currently on room air Gastrointestinal: soft, non-distended, non-tender, normoactive bowel sounds, G- tube present with dry crust at insertion site. : Ayoub catheter in place draining cloudy yellow urine Extremities: Flaccid, Right BKA Skin: left heel chronic diabetic foot wound open to air, sacral decubitus ulcer appears to be atleast stage 3 Neuro: Opens eyes to voice and quickly drifts back to sleep Psych: unable to assess due to mental status H&P: Results Labs Labs: Urine 09/05/24 Range/Units 16:02 Urine Color Yellow (Yellow) Urine Appearance Clear (Clear) Urine pH 5.0 (5.0-9.0) Ur Specific Whitt 1.021 (1.001-1.035) Urine Protein 2+ H (Negative) mg/dL Urine Glucose (UA) 3+ H (Negative) mg/dL Imaging CT scan - head: Radiologist's impression: EXAMINATION: CT brain wo con DATE: 09/05/2024 16:38 INDICATION: Status post cardiac arrest TECHNIQUE: Computed tomography (CT) of the head was performed without intr avenous contrast. Sagittal and coronal reconstructions were performed. The mA was adjusted according to patient size. Iterative reconstruction technique was employed. The dose-length product was 1362.00 mGy-cm. COMPARISON: head CT dated 03/27/2024 FINDINGS: Unchanged small focus of encephalomalacia in the posterior left frontal lobe consistent with sequela of chronic infarct. Additional unchanged small old lacunar infarct at the posterior limb of the right internal capsule. No acute intracranial hemorrhage, acute infarction or abnormal extra axial fluid collection. There is mild scattered white matter hypoattenuation consistent with chronic small vessel ischemic disease. Ventricles are normal and symmetric. No mass/mass effect. Interval decrease in now very small bilateral mastoid effus ions. Middle ear cavities and paranasal sinuses are clear. The orbits are normal. Mucosal thickening in the bilateral sphenoid sinuses. Orogastric tube and endotracheal tube extends through the oral cavity. Intracranial calcified cerebral atherosclerosis is noted. Likely developmentally unfused posterior ring of C1. IMPRESSION: 1. 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 No acute intracranial process. Reviewed, dictated and finalized at location A. Chest x-ray: Radiologist's impression: EXAMINATION: XR chest ET placement, XR abdomen gastric tube insert DATE: 09/05/2024 15:32 INDICATION: Endotracheal tube placement. Nasogastric tube placement TECHNIQUE: 1. Frontal view of the chest was obtained. 2. AP supine view of the abdomen was obtained. COMPARISON: Chest radiograph dated 08/31/2024 FINDINGS: Chest: Endotracheal tube tip 4.3 cm above the vanessa. Unchanged elevation of the left hemidiaphragm. There is improvement in aeration at the left lung base with some persistent airspace opacities in the perihilar left mid to lower lung. Diffuse mild increased interstitial pattern in both lungs consistent with mild pulmonary edema. No pleural effusion or pneumothorax. Heart size is normal. Abdomen: Nasogastric tube tip in proximal side port in the body of the stomach. There is also the bulb of a percutaneous gastrostomy tube in the body the stomach near the tip of the nasogastric tube. There is some gas and stool in the visualized colon. No dilated loops of gas-filled bowel. IMPRESSION: 1. Endotracheal tube and nasogastric tube in expected positions. 2. Mild increased interstitial pattern in the lungs suggesting mild pulmonary edema. 3. Opacities in the left mid and lower lung zone with improved aeration at the left lung base consistent with decreasing atelectasis and/or pneumonia. Reviewed, dictated and finalized at location A. Abdominal x-ray: Radiologist's impression: EXAMINATION: XR chest ET placement, XR abdomen gastric tube insert DATE: 09/05/2024 15:32 INDICATION: Endotracheal tube placement. Nasogastric tube placement TECHNIQUE: 1. Frontal view of the chest was obtained. 2. AP supine view of the abdomen was obtained. COMPARISON: Chest radiograph dated 08/31/2024 FINDINGS: Chest: Endotracheal tube tip 4.3 cm above the vanessa. Unchanged elevation of the left hemidiaphragm. There is improvement in aeration at the left lung base with some persistent airspace opacities in the perihilar left mid to lower lung. Diffuse mild increased interstitial pattern in both lungs consistent with mild pulmonary edema. No pleural effusion or pneumothorax. Heart size is normal. Abdomen: Nasogastric tube tip in proximal side port in the body of the stomach. There is also the bulb of a percutaneous gastrostomy tube in the body the stomach near the tip of the nasogastric tube. There is some gas and stool in the visualized colon. No dilated loops of gas-filled bowel. IMPRESSION: 1. Endotracheal tube and nasogastric tube in expected positions. 2. Mild increased interstitial pattern in the lungs suggesting mild pulmonary edema. 3. Opacities in the left mid and lower lung zone with improved aeration at the left lung base consistent with decreasing atelectasis and/or pneumonia. Reviewed, dictated and finalized at location A. Assessment and Plan Assessment and plan (1) Cardiopulmonary arrest with successful resuscitation: Code(s): I46.9 - Cardiac arrest, cause unspecified Status: Acute Assessment and Plan: * likely due to chronic respiratory with hypoxia * patient found unresponsive without a pulse or respirations at his nursing facility and CPR was started in the field. He received 5 minutes CPR before achieving ROSC. Patient was responsive to painful stimuli and was noted to be moving extremities post CPR. he was deemed not a candidate for hypothermia protocol. (2) Acute on chronic hypoxic respiratory failure: Code(s): J96.21 - Acute and chronic respiratory failure with hypoxia Status: Acute Assessment and Plan: * upon arrival to the emergency room he was found to be with oxygen sat of 80% on room air. He was intubated successfully in the ED however was later extubated after speaking with next of kin who decided to make him comfort measures only. See above history of presenting illness for further detail. * Recently discharged on 08/22/2024 after being hospitalized for acute on chronic respiratory failure with hypoxia requiring BiPAP therapy due to multifocal pneumonia. * History of tracheal stenosis at site of old tracheostomy * Currently agonal breathing pattern and comfort measures only (3) Comfort measures only status: Code(s): Z51.5 - Encounter for palliative care Status: Acute Assessment and Plan: * continue morphine every 2 hours for pain control * atropine for secretions ordered * Ativan ordered for anxiety /restlessness * continue bed rest * urinary catheter placed for comfort * continue DNR DNI status * next of kin Roleclarisa Nelson, sister (4) Tracheal stenosis: Code(s): J39.8 - Other specified diseases of upper respiratory tract Status: Chronic Assessment and Plan: * of note,patient has history of tracheal stenosis at the area old tracheostomy site Quality If No VTE Prophylaxis Answer both mechanical and pharmacologic: Reason no mechanical VTE proph: low risk/not indicated ( patient comfort measures only) Reason no pharmacologic proph: low risk/not indicated ( patient comfort measures only) Hospitalist MIPS Advance Care Plan I have confirmed that the patient's Advanced Care Plan is present, code status is documented, or surrogate decision maker is listed in patient medical record.: Yes Medication Reconciliation I have utilized all available resources to obtain, update and review the patients current medications (includes all prescriptions, OTC, herbals, cannabis, and nutritional supplements).: Yes
--- NOTE | 2024-09-05 18:44 | PC.NURSE ---
pt weighs 101 kg
[2024-09-05] MEDS: [UNRECOGNIZED DRUG - REMARK] 1 EACH XX (18:47)
[2024-09-06] MEDS: LORazepam INJ (*CRX) 2 MG/ML VIAL 1 MG IV PUSH ×4 (01:08→14:48)
[2024-09-06] MEDS: MORPHINE SULFATE (*CRX) 2 MG/ML INJ IV PUSH ×3 (02:50→14:49)
[2024-09-06] MEDS: ATROPINE SULFATE 1% OPHTH SOLN 5 ML BOTTLE 1 DROP SUBLINGUAL (04:14)
--- NOTE | 2024-09-06 07:37 | PCWOUND ---
WOCN NOTE Spoke with RN patient to be hospice. No wound care assessment needed at this time.
--- NOTE | 2024-09-06 11:43 | PCDIET ---
Nutrition note. Pt is to be hospice/comfort measures. No nutrition interventions. Please consult if nutrition needs arise.
--- NOTE | 2024-09-06 12:53 | P.PNIM_ITS ---
Progress Note: A&P Assessment and Plan (1) Comfort measures only status: Code(s): Z51.5 - Encounter for palliative care Status: Acute Assessment and Plan: * consult to hospice * Morphine * Ativan * Atropine gtt * hemphill urinary catheter * Antipyretics (2) Cardiopulmonary arrest with successful resuscitation: Code(s): I46.9 - Cardiac arrest, cause unspecified Status: Acute Assessment and Plan: * SEE ABOVE (3) Acute on chronic hypoxic respiratory failure: Code(s): J96.21 - Acute and chronic respiratory failure with hypoxia Status: Acute Assessment and Plan: * SEE ABOVE Plan Code status: Comfort measures Disposition: currently admitted on comfort measures, CC consulted for discharge to hospice Time Spent With Patient Time with patient: 15 - 25 minutes Subjective Date/time seen: 09/06/24 12:53 Interval history: 64 year old male admitted after respiratory arrest intubated and then extubated placed on comfor measures. 09/06/2024: Assumed Care Patient still with agonal breathing, pupils dilated and fixed, unresponsive, and tachypnea. Spoke with LACY Perez would like to proceed with hospice care and withdrawal in care or interventions. Review of Systems Review of Systems: ROS unobtainable: Yes unobtainable due to medical condition Exam Narrative: * GENERAL: Unresponsive * EYES: Pupils fixed and dilated. * LUNGS: Agonal breathing * CARDIOVASCULAR: Tachycardia * ABDOMEN: Soft Peg tube * EXTREMITIES: RT BKA * SKIN: No rashes or lesions. Skin warm, dry. * NEUROLOGIC: Unable to assess Objective Data Vital Signs Vital Signs: Vital Signs - 24 hr 09/05/24 14:59 09/05/24 15:20 09/05/24 15:40 Temperature 97.9 F Pulse Rate 106 H 105 H 99 Respiratory Rate 20 22 H Blood Pressure 174/76 H 119/64 Pulse Oximetry 100 100 Oxygen Delivery Bag Valve Mask Mechanical Ventilation Fraction of Inspired Oxygen 80 09/05/24 15:47 09/05/24 15:56 09/05/24 16:14 Temperature 98.2 F Pulse Rate 100 95 Respiratory Rate 25 H 19 20 Blood Pressure 129/57 L Pulse Oximetry 99 Oxygen Delivery Fraction of Inspired Oxygen 09/05/24 16:15 09/05/24 16:41 09/05/24 16:43 Temperature 98.4 F Pulse Rate 93 89 89 Respiratory Rate 14 18 19 Blood Pressure 125/59 L Pulse Oximetry 100 Oxygen Delivery Fraction of Inspired Oxygen 09/05/24 16:47 09/05/24 16:45 09/05/24 17:29 Temperature 98.4 F Pulse Rate 86 93 Respiratory Rate 17 Blood Pressure Pulse Oximetry 100 Oxygen Delivery Mechanical Ventilation Fraction of Inspired Oxygen 60 09/05/24 17:29 09/05/24 19:45 Temperature 97.7 F Pulse Rate 92 89 Respiratory Rate 16 12 Blood Pressure 133/61 Pulse Oximetry 100 Oxygen Delivery Fraction of Inspired Oxygen Intake/Output Intake/Output: Intake & Output 09/03/24 09/04/24 09/05/24 09/06/24 23:59 23:59 23:59 23:59 Intake Total 14.5 Output Total 300 Balance 14.5 -300 Meds/Results Medications: Active Medications Generic Name Dose Route Start Last Admin Trade Name Freq PRN Reason Stop Dose Admin Acetaminophen 650 mg 09/05/24 19:44 Acetaminophen 325 Mg Tablet PO Q4H PRN Mild Pain (1-3) or Fever Atropine Sulfate 1 drop 09/05/24 19:44 09/06/24 04:14 Atropine Sulfate 1% Ophth Soln 5 Ml Bottle SUBLINGUAL 1 drop Q4H PRN Administration Secretions Lorazepam 1 mg 10/24/24 19:43 09/06/24 09:16 Lorazepam Inj (*Crx) 2 Mg/Ml Vial IV PUSH 1 mg Q2H PRN Administration Anxiety Morphine Sulfate 2 mg 09/05/24 20:38 09/06/24 06:00 Morphine Sulfate (*Crx) 2 Mg/Ml Inj IV PUSH 2 mg Q2H PRN Administration COMFORT Ondansetron HCl 4 mg 09/05/24 19:44 Ondansetron Inj 4 Mg/2 Ml Vial IV PUSH Q6H PRN Nausea And Vomiting Radiology Results: ITS Impressions Abdomen X-Ray 09/05/24 15:34 IMPRESSION: 1. Endotracheal tube and nasogastric tube in expected positions. 2. Mild increased interstitial pattern in the lungs suggesting mild pulmonary edema. 3. Opacities in the left mid and lower lung zone with improved aeration at the left lung base consistent with decreasing atelectasis and/or pneumonia. Chest X-Ray 09/05/24 15:34 IMPRESSION: 1. Endotracheal tube and nasogastric tube in expected positions. 2. Mild increased interstitial pattern in the lungs suggesting mild pulmonary edema. 3. Opacities in the left mid and lower lung zone with improved aeration at the left lung base consistent with decreasing atelectasis and/or pneumonia. Head CT 09/05/24 16:54 IMPRESSION: 1. 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 No acute intracranial process. Labs Labs: Laboratory Results - last 24 hr 09/05/24 16:02 Urine Color Yellow Urine Appearance Clear Urine pH 5.0 Ur Specific [place] 1.021 Urine Protein 2+ H Urine Glucose (UA) 3+ H Urine Ketones Negative Ur Blood (Man) Negative Urine Nitrate Negative Urine Bilirubin Negative Urine Urobilinogen 0.2 Add Ur Microanalysis Reviewed Leukocyte Esterase Rfl Trace H Urine RBC 0-2 Urine WBC 11-20 H Ur Squamous Epith Cells None seen Urine Bacteria None seen Urine Casts >20 Hyaline Casts Present Urine Yeast (Budding) Present H Quality If No VTE Prophylaxis Answer both mechanical and pharmacologic: Reason no pharmacologic proph: low risk/not indicated and medical contraindication (Comfort measures) -Patient's previous records reviewed on admission -ER notes reviewed in detail on admission -discussed all findings and current treatment plan with patient/Family/POA -Consultations reviewed for recommendations -Patient's disposition for safe discharge discussed with top case assembler Dictation performed by [employer] direct speech recognition software, therefore studio camera operator variants and typographical errors may occur. Hospitalist MIPS Advance Care Plan I have confirmed that the patient's Advanced Care Plan is present, code status is documented, or surrogate decision maker is listed in patient medical record.: Yes Medication Reconciliation I have utilized all available resources to obtain, update and review the patients current medications (includes all prescriptions, OTC, herbals, cannabis, and nutritional supplements).: Yes The patient is not eligible for med reconciliation; the patient is in a emergent medical situation where delaying treatment would jeopardize the patients health.: No
[2024-09-06 14:00] VITALS: BP 103/46; PULSE 96; RESP 27; O2SAT 92
--- NOTE | 2024-09-08 14:44 | P.DN_ITS ---
Discharge Summary Date and Time Date of : 09/06/24 Time of : 15:25 Provider Pronounced By: 2 RNs Name of First RN That Pronounced: Beverley Hartley RN Name of Second RN That Pronounced: Hiren Dumas RN Probable Cause of Probable Cause of : Acute respiratory failure with hypoxia Summary Hospital Course: Patient was a 64-year-old male with significant past medical history chronic kidney disease, CAD, diabetes, GERD, hyperlipidemia, hypertension, P 80, tracheal stenosis, chronic decubitus wound G-tube for feeding, and RT BKA who presented to the emergency department via EMS after found unresponsive and pulseless at his nursing facility. EMS had initially performed CPR and achieved ROSC prior to arrival. Upon arrival to the emergency department patient was responsive to painful stimuli but hypoxic he was then intubated successfully in the emergency department due to respiratory arrest secondary to acute on chronic respiratory failure. after speaking with fiscal accountant plan was for transfer due to patient's tracheal stenosis and concern about extubation and need for ENT coverage. The power of employee benefits attorney for patient was contacted about current condition and need for transfer for further interventions at this point the power of employee benefits attorney requested patient be placed on comfort measures only and extubated. patient was then admitted to the medical unit on comfort measures and started on morphine Ativan following day he was found to agonal breathing, pupils dilated fixed and unresponsive to stimuli I spoke with patient's POA about consult to hospice care which time she requested inpatient hospice. prior to admission hospice patient due to acute respiratory arrest at 1525. Additional Data Confirmation of as documented by pronouncing clinician: Pupillary Reflex, Palpable Pulses, Response to Stimuli, Heart Tones and Breath Sounds Family: contacted and not available Name of Provider Notified: Arin Lam APRN Time Provider Notified: 15:30 Was code activated?: No Provider Requests Autopsy: No Family Requests Autopsy: No Theatrical Dresser Notified: Yes Date [facility] Notified of : 09/06/24 Time [facility] Notified of : 15:40 Advance directives: No Hospice patient?: No
== END 2024-09-06 17:25 | disposition expired | DRG 133 ==
LOC: ANHED 15:30 → ANH2MED 18:14
PROVIDERS: Admitting Provider General Practice; Emergency Provider Emergency Medicine; PCP Internal Medicine; Visit Provider Nurse Practitioner Family
DX: J96.21 Acute and chronic respiratory failure with hypoxia (principal); I46.9 Cardiac arrest, cause unspecified; E78.5 Hyperlipidemia, unspecified; E11.51 Type 2 diabetes mellitus with diabetic peripheral angiopathy without gangrene; E11.22 Type 2 diabetes mellitus with diabetic chronic kidney disease; I12.9 Hypertensive chronic kidney disease with stage 1 through stage 4 chronic kidney disease, or unspecified chronic kidney disease; I25.2 Old myocardial infarction; I25.10 Atherosclerotic heart disease of native coronary artery without angina pectoris; J39.8 Other specified diseases of upper respiratory tract; K21.9 Gastro-esophageal reflux disease without esophagitis; N18.30 Chronic kidney disease, stage 3 unspecified; Z79.4 Long term (current) use of insulin; Z86.73 Personal history of transient ischemic attack (TIA), and cerebral infarction without residual deficits; Z66 Do not resuscitate; Z86.718 Personal history of other venous thrombosis and embolism; Z87.891 Personal history of nicotine dependence; Z93.1 Gastrostomy status; Z89.511 Acquired absence of right leg below knee
CPT/HCPCS: 31500; 70450; 81001; 87086; 93005; 96365; 96367; 96375; 99291; A9270; C1751; J0330; J2060; J2250; J2270; J3010